=== PATIENT | female | born 1970 | race Caucasian/White ===

== ENCOUNTER 2018-06-10 12:46 | Inpatient (IN) | payer OTHER ==
[~2018-06-10] VITALS: Ht 162.6 cm; Wt 46.5 kg
[2018-06-10] MEDS ORDERED: ONDANSETRON 4 MG INJ IV STA (13:01)
[2018-06-10] MEDS ORDERED: morphine 4 MG/ML VIAL IV STA (13:01)
[2018-06-10] MEDS ORDERED: SOD CHLORIDE 0.9% 1,000 ML IV STA ×2 (13:01→14:03)
[2018-06-10] MEDS ORDERED: CEFEPIME 2GM/50 ML (PMX) 50 ML IVPB STA (14:05)
--- NOTE | 2018-06-10 14:13 | ERD ---
ER Documentation Chief Complaint Chief Complaint bib ra from home for n/v for 1 week, was dx with ovarian ca HPI This is a 47-year-old female that presents to the emergency department complaining of generalized weakness nausea and persistent nonbloody nonbilious emesis for over 7 days. The patient was recently diagnosed with ovarian carcinoma roughly 5 days ago. She indicated that in April she had a routine surgical procedure for an ulcer. At that time there was an incidental finding of possible malignancy. She went to the [facility] where they performed a CT scan of her abdomen 5 days ago and she was diagnosed with right- sided ovarian cancer. The patient is scheduled to begin chemotherapy on 2018 5 days from today. She does state that she has had weight loss. She had no fevers or shaking or chills. She denies any hemoptysis hematemesis or melanotic stools. She denies any frequency urgency or dysuria. She is having lower abdominal pain but she states this is been present for several months. She describes the pain as a cramping-like sensation more prominent the left lower quadrant. No alleviating or exacerbating factors. ROS All systems reviewed and are negative except as per history of present illness. Medications Home Meds No Active Prescriptions or Reported Meds Allergies Allergies: Coded Allergies: No Known Allergy (Unverified , 06/10/18) PMhx/Soc Medical and Surgical Hx: pt denies Surgical Hx Hx Miscellaneous Medical Probl: Yes (ovarian CA) Hx Alcohol Use: No Hx Substance Use: No Hx Tobacco Use: No Smoking Status: Never smoker Physical Exam Vitals Vital Signs Date Temp Pulse Resp B/P (MAP) Pulse Ox O2 O2 Flow FiO2 Time Delivery Rate 06/10/18 98.1 97 20 114/80 100 Room Air 2.0 15:56 (91) 06/10/18 98.1 108 19 115/71 100 Room Air 12:51 (86) 06/10/18 98.1 99 19 110/70 100 12:51 (83) Physical Exam Constitutional:Well-developed. Well-nourished. HEENT:Normocephalic. Atraumatic.Pupils were equal round reactive to light. Very dry mucous membranes.No tonsillar exudates. Neck: No nuchal rigidity. No lymphadenopathy. No posterior cervical spine tenderness or step-offs. Respiratory: Not using accessory muscles of respiration.Lungs were clear to auscultation bilaterally. No rhonchi. No rales. No wheezing. Cardiovascular: Regular rate regular rhythm.No murmurs. No rubs were appreciated.S1, S2 normal. Distal pulses are palpable 2+ bilaterally. GI: Abdomen was soft. Left lower quadrant tenderness with no distension. No pulsatile abdominal masses or bruits. No rebound. No guarding. Bowel sounds were present and normal. Muscle skeletal: Full range of motion of both the upper and lower extremities bilaterally.Normal muscle tone.No assymetrical calf tenderness or swelling. Skin: No petechia, no purpura. No lesions on the palms or the soles of the feet. No maculopapular rash. NEURO: Patient was alert, awake, orientated x3.No facial droop. Gait observed and normal with no ataxia.Speech had regular rate and rhythm. No focal neurological deficits. Result Diagram: 06/10/18 1313 06/10/18 1313 Results 24 hrs Laboratory Tests Test 06/10/18 13:13 06/10/18 14:30 White Blood Count 8.5 10^3/ul Red Blood Count 5.64 10^6/ul Hemoglobin 14.7 g/dl Hematocrit 46.3 % Mean Corpuscular Volume 82.1 fl Mean Corpuscular Hemoglobin 26.1 pg Mean Corpuscular Hemoglobin Concent 31.7 g/dl Red Cell Distribution Width 19.4 % Platelet Count 405 10^3/UL Mean Platelet Volume 10.8 fl Immature Granulocytes % 0.400 % Neutrophils % 76.2 % Lymphocytes % 15.3 % Monocytes % 7.9 % Eosinophils % 0.0 % Basophils % 0.2 % Nucleated Red Blood Cells % 0.0 /100WBC Immature Granulocytes # 0.030 10^3/ul Neutrophils # 6.5 10^3/ul Lymphocytes # 1.3 10^3/ul Monocytes # 0.7 10^3/ul Eosinophils # 0.0 10^3/ul Basophils # 0.0 10^3/ul Nucleated Red Blood Cells # 0.0 10^3/ul Prothrombin Time 12.9 Sec Prothrombin Time Ratio 1.0 INR International Normalized Ratio 0.96 Activated Partial Thromboplast Time 26.4 Sec Sodium Level 135 mmol/L Potassium Level 2.7 mmol/L Chloride Level 58 mmol/L Carbon Dioxide Level 50 mmol/L Anion Gap 27 Blood Urea Nitrogen 73 mg/dl Creatinine 1.81 mg/dl Est Glomerular Filtrat Rate mL/min 30 mL/min Glucose Level 154 mg/dl Lactic Acid Level 2.3 mmol/L Calcium Level 10.2 mg/dl Total Bilirubin 0.3 mg/dl Direct Bilirubin 0.00 mg/dl Indirect Bilirubin 0.3 mg/dl Aspartate Amino Transf (AST/SGOT) 23 IU/L Alanine Aminotransferase (ALT/SGPT) 58 IU/L Alkaline Phosphatase 126 IU/L Troponin I 0.032 ng/ml Total Protein 10.1 g/dl Albumin 4.8 g/dl Globulin 5.30 g/dl Albumin/Globulin Ratio 0.90 Amylase Level 80 U/L Lipase 108 U/L Urine Color YELLOW Urine Clarity CLOUDY Urine pH 6.0 Urine Specific [place] 1.016 Urine Ketones 2+ mg/dL Urine Nitrite NEGATIVE mg/dL Urine Bilirubin NEGATIVE mg/dL Urine Urobilinogen NEGATIVE mg/dL Urine Leukocyte Esterase NEGATIVE Brittany/ul Urine Microscopic RBC 11 /HPF Urine Microscopic WBC 5 /HPF Urine Squamous Epithelial Cells FEW /HPF Urine Bacteria FEW /HPF Urine Mucus FEW /HPF Urine Hemoglobin 1+ mg/dL Urine Glucose NEGATIVE mg/dL Urine Total Protein 2+ mg/dl Current Medications Medications Dose Sig/John Start Time Status Last (Trade) Ordered Route PRN Stop Time Admin Dose Reason Admin Sodium 1,000 ml @ Q1H STAT 06/10/18 DC 06/10/18 Chloride 1,000 mls/hr IV 13:01 06/10/18 13:10 14:00 Morphine 4 mg ONCE STAT 06/10/18 DC Sulfate IV 13:01 06/10/18 (morphine) 13:03 Ondansetron 4 mg ONCE STAT 06/10/18 DC 06/10/18 HCl (Zofran IV 13:01 06/10/18 13:10 Inj) 13:03 Sodium 1,000 ml @ Q1H STAT 06/10/18 DC 06/10/18 Chloride 1,000 mls/hr IV 14:03 06/10/18 14:18 15:02 Cefepime HCl 50 ml @ ONCE STAT 06/10/18 DC 06/10/18 100 mls/hr IVPB 14:05 06/10/18 14:17 14:34 Vancomycin 250 ml @ ONCE ONCE 06/10/18 DC 06/10/18 HCl 125 mls/hr IVPB 14:30 06/10/18 14:57 16:29 10 mg ONCE ONCE 06/10/18 DC 06/10/18 Metoclopramid IV 15:00 06/10/18 15:35 e HCl 15:01 (Reglan) 10 mg STK-MED 06/10/18 DC Metoclopramid ONCE .ROUTE 14:51 06/10/18 e HCl 14:52 (Reglan) Potassium 20 meq ONCE STAT 06/10/18 DC Chloride PO 16:25 06/10/18 (Klor-Con 20) 16:29 Procedures/MDM This patient presented to the emergency department with abdominal pain and was seen and evaluated by myself. My differential diagnosis included but was not limited to abdominal aortic aneurysm, appendicitis, pancreatitis, perforated peptic ulcer, perforated viscus, Boerhaaves syndrome or visceral pain such as diverticulitis, DKA, esophagitis, hepatitis or bowel obstruction. The patient was placed on a forestry biology specialist, continuous pulse oximetry, and IV access was established by nursing staff. 12 Lead EKG tracing ordered and reviewed by myself showed: Normal sinus rhythm of 85 bpm and no arrhythmia. TX interval normal. QRS duration normal. No ST segment elevation No ST segment depression. No changes consistent with acute ischemia. T wave inversion in the inferior leads The patient was given IV fluids. The patient had findings of severe dehydration. The patient had renal failure that appeared to be prerenal with a BUN to creatinine ratio that was greater than 20. I will however obtain u ltrasound of the kidneys. The patient stated she did not want a CT scan is she recently had this performed a week ago that indicated the diagnosis of her ovarian carcinoma. The patient had no peritoneal signs and no abdominal tenderness. She was refusing analgesic medication. She was given as stated above IV fluids and also Zofran as an antiemetic with IV Pepcid. The patient's lactic acid was elevated. I did feel this was more likely result of acute dehydration however given the fact that the patient has multiple comorbidities with recent ovarian carcinoma she was treated prophylactically with antibiotics. Again I felt the patient likely had lactic acidosis secondary to severe dehydration and prerenal azotemia. The patient also had severe hypokalemia. She was given oral potassium. She will be admitted to the hospitalist Dr. Lee and go to the telemetry service due to the hyperkalemia. Critical Care: Time: 50 minutes Treatments/Evaluations: Close monitoring and treatment of unstable vital signs, cardiorespiratory, and neurologic status, while maintaining tight balance of fluid, respiratory, and cardiac interventions. Time does not include performing any of the above billable procedures. Departure Diagnosis: Primary Impression: Acute prerenal azotemia Additional Impressions: Nausea and vomiting Vomiting type: unspecified Vomiting Intractability: non-intractable Qualified Codes: R11.2 - Nausea with vomiting, unspecified Lactic acidosis Ovarian carcinoma Laterality: right Qualified Codes: C56.1 - Malignant neoplasm of right ovary Hypokalemia Condition: Serious CHARLEEN HIGH MD Jun 10, 2018 14:13
[2018-06-10] MEDS ORDERED: VANCOMYCIN 1 GM (PMX) 250 ML IVPB ONE (14:30)
[2018-06-10] MEDS ORDERED: METOCLOPRAMIDE 10 MG INJ ONE (14:51)
[2018-06-10] MEDS ORDERED: METOCLOPRAMIDE 10 MG INJ IV ONE (15:00)
[2018-06-10] MEDS ORDERED: POTASSIUM CHLORIDE (SR) 20 MEQ TAB PO STA (16:25)
--- NOTE | 2018-06-10 17:40 | HP ---
Date/Time of Note Date/Time of Note DATE: 06/10/18 TIME: 17:34 Assessment/Plan VTE Prophylaxis Pharmacological prophylaxis: heparin Lines/Catheters IV [facility] Saline Lock Assessment/Plan Hospital Course Ms Steward is a 47 yo female with ho severe PUD s/p partial gastrectomy last year, recently diagnosed ovarian cancer with chemotherapy scheduled to be started who presents to ED for management of nausea and vomiting which she attri butes to the stress of her cancer diagnosis and the fact that her father has just . She has been found to have metabolic alkalosis and hypokalemia consistent with vomiting syndrome. I suspect as she does this is related to emotional distress. She does not seem to have symptoms of mechanical obstruction as one might attribute to adhesions from her previous surgery or obstruction from her known cancer. We will provide supportive care for now - IV fluids - Potassium repletion - Antiemetics PRN - Further workup if symptoms perisist PUD: - PPI Ovarian cancer: - Further management as outpatient Result Diagram: 06/10/18 1313 06/10/18 1313 Results 24hrs Laboratory Tests Test 06/10/18 13:13 06/10/18 14:30 White Blood Count 8.5 Red Blood Count 5.64 H Hemoglobin 14.7 Hematocrit 46.3 Mean Corpuscular Volume 82.1 Mean Corpuscular Hemoglobin 26.1 L Mean Corpuscular Hemoglobin Concent 31.7 L Red Cell Distribution Width 19.4 H Platelet Count 405 Mean Platelet Volume 10.8 H Immature Granulocytes % 0.400 Neutrophils % 76.2 Lymphocytes % 15.3 Monocytes % 7.9 Eosinophils % 0.0 Basophils % 0.2 Nucleated Red Blood Cells % 0.0 Immature Granulocytes # 0.030 Neutrophils # 6.5 Lymphocytes # 1.3 Monocytes # 0.7 Eosinophils # 0.0 Basophils # 0.0 Nucleated Red Blood Cells # 0.0 Prothrombin Time 12.9 Prothrombin Time Ratio 1.0 INR International Normalized Ratio 0.96 Activated Partial Thromboplast Time 26.4 Sodium Level 135 Potassium Level 2.7 *L Chloride Level 58 L Carbon Dioxide Level 50 *H Anion Gap 27 H Blood Urea Nitrogen 73 H Creatinine 1.81 H Est Glomerular Filtrat Rate mL/min 30 L Glucose Level 154 Lactic Acid Level 2.3 *H Calcium Level 10.2 Total Bilirubin 0.3 Direct Bilirubin 0.00 Indirect Bilirubin 0.3 Aspartate Amino Transf (AST/SGOT) 23 Alanine Aminotransferase (ALT/SGPT) 58 Alkaline Phosphatase 126 H Troponin I 0.032 Total Protein 10.1 H Albumin 4.8 Globulin 5.30 H Albumin/Globulin Ratio 0.90 Amylase Level 80 Lipase 108 Urine Color YELLOW Urine Clarity CLOUDY A Urine pH 6.0 Urine Specific [place] 1.016 Urine Ketones 2+ H Urine Nitrite NEGATIVE Urine Bilirubin NEGATIVE Urine Urobilinogen NEGATIVE Urine Leukocyte Esterase NEGATIVE Urine Microscopic RBC 11 H Urine Microscopic WBC 5 Urine Squamous Epithelial Cells FEW Urine Bacteria FEW A Urine Mucus FEW A Urine Hemoglobin 1+ H Urine Glucose NEGATIVE Urine Total Protein 2+ H HPI/ROS Admit Date/Time Admit Date/Time Hx of Present Illness 47 yo female with ho PUD s/p gastrectomy, recently diagnosed ovarian cancer who presents with nausea/vomiting and inability to tolerate PO Patient has suffered numerous new health conditions since last summer. She was diagnosed with peptic ulcer disease and actually had a perforation requiring emergent surgery. Sounds like she had two surgeries for PUD last year. During these she was diagnosed with ovarian cancer. She is scheduled to start chemotherapy this coming week. To make matters worse, her father unexpecte dly and his was today. She had been feeling ok until this news. Since then she has been very emotional and stressed. She says this causes her nausea and vomiting 2/2 stress. She came to ED today for IV fluids because she couldn't keep anything down. She denies any abdominal pain. She herself does not believe this is related to anything other than stress. PMH/Family/Social Past Medical History PUD Ovarian cancer Medications Current Medications Potassium Chloride 100 ml @ 50 mls/hr Q2H IVPB ; Start 06/10/18 at 17:30; Stop 06/10/18 at 23:29 Coded Allergies: No Known Allergy (Unverified , 06/10/18) Past Surgical History gastrectomy parital for PUD Family History Significant Family History: no pertinent family hx Social History Alcohol Use: none Smoking Status: Never smoker Drug Use: none Exam/Review of Systems Vital Signs Vitals Vital Signs Date Temp Pulse Resp B/P (MAP) Pulse Ox O2 O2 Flow FiO2 Time Delivery Rate 06/10/18 98.1 97 20 114/80 100 Room Air 2.0 15:56 (91) Exam Constitutional: alert, oriented, well developed Psych: no complaints, nl mood/affect Head: normocephalic, atraumatic Eyes: nl conjunctiva, EOMI, nl lids, nl sclera, PERRL ENMT: nl external ears & nose, nl lips & teeth, nl nasal mucosa & septum Neck: supple, non-tender Respiratory: clear to auscultation, normal air movement Cardiovascular: regular rate and rhythm, nl pulses Gastrointestinal: soft, nl liver, spleen, non-tender Musculoskeletal: nl extremities to inspection Extremities: normal pulses Neurological: 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
[2018-06-10] MEDS ORDERED: NACL 0.9% 3 ML SYG IV SCH (18:00)
[2018-06-10] MEDS ORDERED: ACETAMINOPHEN 325 MG TAB PO PRN (19:00)
[2018-06-10] MEDS ORDERED: ONDANSETRON 4 MG INJ IV PRN (19:00)
[2018-06-10] MEDS: POTASSIUM CHLORIDE 100 ML IVPB SCH ×3 (19:35→22:13)
[2018-06-10] MEDS: DEXTROSE 5%-0.45% NACL 1,000 ML IV SCH (19:43)
[2018-06-10 21:00] VITALS: BMI 20.2
[2018-06-10] MEDS: FAMOTIDINE 20 MG TAB PO SCH (21:00)
[2018-06-10 21:18] VITALS: PULSE 86
[2018-06-10] MEDS: ONDANSETRON 4 MG INJ IV PRN (21:44)
[2018-06-10 23:49] VITALS: BP 119/65; PULSE 73; RESP 18
[2018-06-11] VITALS (10 sets, daily range): BP systolic 121–131; BP diastolic 73–79; PULSE 81–106; RESP 15–18
[2018-06-11] MEDS: DEXTROSE 5%-0.45% NACL 1,000 ML IV SCH ×6 (01:41→20:20)
[2018-06-11] MEDS ORDERED: SOD CHLORIDE 0.9% 1,000 ML IV ONE ×2 (07:30→13:00)
[2018-06-11] MEDS: ONDANSETRON 4 MG INJ IV PRN ×3 (08:26→21:54)
[2018-06-11] MEDS: FAMOTIDINE 20 MG TAB PO SCH ×2 (08:26→21:00)
[2018-06-11] MEDS: POTASSIUM CHLORIDE 100 ML IVPB SCH ×6 (09:11→23:50)
[2018-06-11] MEDS ORDERED: IOHEXOL 14.3 MG(I)/ML (ADULT) BTL PO ONE ×2 (09:30→11:00)
[2018-06-11] MEDS ORDERED: POTASSIUM CHLORIDE 100 ML IVPB SCH (10:00)
[2018-06-11] MEDS: LORAZEPAM 2 MG INJ IV PRN ×2 (10:06→16:45)
--- NOTE | 2018-06-11 12:54 | PN ---
Date/Time of Note Date/Time of Note DATE: 06/11/18 TIME: 12:52 Assessment/Plan VTE Prophylaxis Risk score (from Nsg)>0 risk: 3 SCD applied (from Nsg): Yes Pharmacological prophylaxis: heparin Lines/Catheters IV Catheter Type (from Nrsg): Peripheral IV Urinary Cath still in place: No (NO F/C) Assessment/Plan Hospital Course Ms Steward is a 47 yo female with ho severe PUD s/p partial gastrectomy last year, recently diagnosed ovarian cancer with chemotherapy scheduled to be started who presents to ED for management of nausea and vomiting which she attributes to the stress of her cancer diagnosis and the fact that her father has just . She has been found to have metabolic alkalosis and hypokalemia consistent with vomiting syndrome. - Symptoms have persisted and resistent to zofran and ativan. I am now more worried about gastric outlet obstruction. Will obtain CT. I have also asked Dr Suarez to consult Metabolic alkalosis, JAMAL, hypokalemia: - IV fluids - Potassium repletion PUD: - PPI Ovarian cancer: - Further management as outpatient Result Diagram: 06/11/1851806/11/18518 Results 24hrs Laboratory Tests Test 06/10/18 13:13 06/10/18 14:30 06/10/18 17:53 06/11/18 05:19 White Blood Count 8.5 8.7 Red Blood Count 5.64 H 4.56 Hemoglobin 14.7 11.9 L Hematocrit 46.3 38.1 Mean Corpuscular Volume 82.1 83.6 Mean Corpuscular 26.1 L 26.1 L Hemoglobin Mean Corpuscular 31.7 L 31.2 L Hemoglobin Concent Red Cell Distribution 19.4 H 19.8 H Width Platelet Count 405 330 Mean Platelet Volume 10.8 H 11.2 H Immature Granulocytes % 0.400 0.500 H Neutrophils % 76.2 72.5 Lymphocytes % 15.3 16.9 Monocytes % 7.9 8.7 Eosinophils % 0.0 1.2 Basophils % 0.2 0.2 Nucleated Red Blood 0.0 0.0 Cells % Immature Granulocytes # 0.030 0.040 H Neutrophils # 6.5 6.3 Lymphocytes # 1.3 1.5 Monocytes # 0.7 0.8 Eosinophils # 0.0 0.1 Basophils # 0.0 0.0 Nucleated Red Blood 0.0 0.0 Cells # Prothrombin Time 12.9 Prothrombin Time Ratio 1.0 INR International 0.96 Normalized Ratio Activated 26.4 Partial Thromboplast Time Sodium Level 135 138 Potassium Level 2.7 *L 2.5 *L Chloride Level 58 L 78 #L Carbon Dioxide Level 50 *H 51 *H Anion Gap 27 H 9 # Blood Urea Nitrogen 73 H 48 #H Creatinine 1.81 H 1.13 H Est Glomerular Filtrat 30 L 51 L Rate mL/min Glucose Level 154 170 Lactic Acid Level 2.3 *H Calcium Level 10.2 9.1 Total Bilirubin 0.3 0.2 Direct Bilirubin 0.00 0.00 Indirect Bilirubin 0.3 0.2 Aspartate Amino 23 19 Transf (AST/SGOT) Alanine 58 44 Aminotransferase (ALT/SG PT) Alkaline Phosphatase 126 H 90 Troponin I 0.032 Total Protein 10.1 H 8.2 H Albumin 4.8 3.8 # Globulin 5.30 H 4.40 H Albumin/Globulin Ratio 0.90 0.86 Amylase Level 80 Lipase 108 Urine Color YELLOW Urine Clarity CLOUDY A Urine pH 6.0 Urine Specific [place] 1.016 Urine Ketones 2+ H Urine Nitrite NEGATIVE Urine Bilirubin NEGATIVE Urine Urobilinogen NEGATIVE Urine Leukocyte Esterase NEGATIVE Urine Microscopic RBC 11 H Urine Microscopic WBC 5 Urine Squamous FEW Epithelial Cells Urine Bacteria FEW A Urine Mucus FEW A Urine Hemoglobin 1+ H Urine Glucose NEGATIVE Urine Total Protein 2+ H POC Venous Lactate 1.1 Hemoglobin A1c 5.4 Magnesium Level 2.7 H Subjective 24 Hr Interval Summary Free Text/Dictation Patient's symptoms have persisted and perhaps worsened. She says she now is vomiting after meals and seems to feel some obstruction in her stomach Exam/Review of Systems Exam Vitals Vital Signs Date Temp Pulse Resp B/P (MAP) Pulse Ox O2 O2 Flow FiO2 Time Delivery Rate 06/11/18 98.9 95 16 125/74 97 Room Air 11:35 (91) 06/10/18 2.0 20:19 Intake and Output 06/10/18 06/10/18 06/11/18 1515:00 23:00 07:00 IntakeIntake Total 1050 ml 1450 ml OutputOutput Total 350 ml BalanceBalance 1050 ml 1100 ml Constitutional: alert, oriented, well developed Psych: no complaints, nl mood/affect Head: normocephalic, atraumatic Eyes: nl conjunctiva, EOMI, nl lids, nl sclera, PERRL ENMT: nl external ears & nose, nl lips & teeth, nl nasal mucosa & septum Neck: supple, non-tender Respiratory: clear to auscultation, normal air movement Cardiovascular: regular rate and rhythm, nl pulses Gastrointestinal: soft, nl liver, spleen, non-tender Musculoskeletal: nl extremities to inspection, nl gait and stance Extremities: normal pulses Neurological: GREY GOODS TESTER II-XII intact, nl mental status, nl speech, nl strength Skin: nl turgor; No rash or lesions Lymph: nl lymph nodes Results Results 24hrs Laboratory Tests Test 06/10/18 13:13 06/10/18 14:30 06/10/18 17:53 06/11/18 05:19 White Blood Count 8.5 8.7 Red Blood Count 5.64 H 4.56 Hemoglobin 14.7 11.9 L Hematocrit 46.3 38.1 Mean Corpuscular Volume 82.1 83.6 Mean Corpuscular 26.1 L 26.1 L Hemoglobin Mean Corpuscular 31.7 L 31.2 L Hemoglobin Concent Red Cell Distribution 19.4 H 19.8 H Width Platelet Count 405 330 Mean Platelet Volume 10.8 H 11.2 H Immature Granulocytes % 0.400 0.500 H Neutrophils % 76.2 72.5 Lymphocytes % 15.3 16.9 Monocytes % 7.9 8.7 Eosinophils % 0.0 1.2 Basophils % 0.2 0.2 Nucleated Red Blood 0.0 0.0 Cells % Immature Granulocytes # 0.030 0.040 H Neutrophils # 6.5 6.3 Lymphocytes # 1.3 1.5 Monocytes # 0.7 0.8 Eosinophils # 0.0 0.1 Basophils # 0.0 0.0 Nucleated Red Blood 0.0 0.0 Cells # Prothrombin Time 12.9 Prothrombin Time Ratio 1.0 INR International 0.96 Normalized Ratio Activated 26.4 Partial Thromboplast Time Sodium Level 135 138 Potassium Level 2.7 *L 2.5 *L Chloride Level 58 L 78 #L Carbon Dioxide Level 50 *H 51 *H Anion Gap 27 H 9 # Blood Urea Nitrogen 73 H 48 #H Creatinine 1.81 H 1.13 H Est Glomerular Filtrat 30 L 51 L Rate mL/min Glucose Level 154 170 Lactic Acid Level 2.3 *H Calcium Level 10.2 9.1 Total Bilirubin 0.3 0.2 Direct Bilirubin 0.00 0.00 Indirect Bilirubin 0.3 0.2 Aspartate Amino 23 19 Transf (AST/SGOT) Alanine 58 44 Aminotransferase (ALT/SG PT) Alkaline Phosphatase 126 H 90 Troponin I 0.032 Total Protein 10.1 H 8.2 H Albumin 4.8 3.8 # Globulin 5.30 H 4.40 H Albumin/Globulin Ratio 0.90 0.86 Amylase Level 80 Lipase 108 Urine Color YELLOW Urine Clarity CLOUDY A Urine pH 6.0 Urine Specific [place] 1.016 Urine Ketones 2+ H Urine Nitrite NEGATIVE Urine Bilirubin NEGATIVE Urine Urobilinogen NEGATIVE Urine Leukocyte Esterase NEGATIVE Urine Microscopic RBC 11 H Urine Microscopic WBC 5 Urine Squamous FEW Epithelial Cells Urine Bacteria FEW A Urine Mucus FEW A Urine Hemoglobin 1+ H Urine Glucose NEGATIVE Urine Total Protein 2+ H POC Venous Lactate 1.1 Hemoglobin A1c 5.4 Magnesium Level 2.7 H Medications Medication Current Medications Dextrose/Sodium Chloride 1,000 ml @ 150 mls/hr Q6H40M IV Last administered on 06/11/18at 11:05; Admin Dose 150 MLS/HR; Start 06/10/18 at 17:40 IV Flush (NS 3 ml) 3 ml PER PROTOCOL IV ; Start 06/10/18 at 18:00 Ondansetron HCl (Zofran Inj) 4 mg Q6H PRN IV NAUSEA/VOMITING Last administered on 06/11/18at 08:26; Admin Dose 4 MG; Start 06/10/18 at 18:00 Morphine Sulfate (morphine) 2 mg Q4H PRN IV .SEVERE PAIN 7-10; Start 06/10/18 at 18:00 Famotidine (Pepcid) 20 mg Q12 PO Last administered on 06/11/18at 08:26; Admin Dose 20 MG; Start 06/10/18 at 21:00 Ondansetron HCl (Zofran Inj) 4 mg ER BRIDGE PRN IV NAUSEA/VOMITING; Start 06/10/18 at 19:00; Stop 06/11/18 at 18:59 Acetaminophen (Tylenol Tab) 650 mg ER BRIDGE PRN PO .MILD PAIN 1-3 OR TEMP; Start 06/10/18 at 19:00; Stop 06/11/18 at 18:59 Potassium Chloride 100 ml @ 50 mls/hr Q2H IVPB Last administered on 06/11/18at 11:01; Admin Dose 50 MLS/HR; Start 06/11/18 at 07:30; Stop 06/11/18 at 13:29 Lorazepam (Ativan) 1 mg Q6H PRN IV anxiety Last administered on 06/11/18at 10:06; Admin Dose 1 MG; Start 06/11/18 at 09:30 ELMER CAVAZOS MD Jun 11, 2018 12:54
--- NOTE | 2018-06-11 14:50 | CONS ---
DATE OF ADMISSION: 06/10/2018 DATE OF CONSULTATION: TYPE OF CONSULTATION: Gastroenterology. Dear Dr. Lee: Thank you for asking me to see Ms. Steward in GI consultation. HISTORY OF PRESENT ILLNESS: The patient, as you know, is a 47-year-old female who has been admitted to hospital because of persistent vomiting for the past 1 week. As a result, she developed severe alkalosis and hypokalemia. No history of vomiting blood, vomitus is green in color. She had 2 surgeries for perforation of the peptic ulcer disease 2x in the past few years in [facility] nd then some other hospital. No history of passing blood from the rectum. She was recently diagnosed to have ovarian cancer. She is scheduled to have an ovarian cancer treatment on the of this month. REVIEW OF SYSTEM: Totally unremarkable. MEDICATIONS PRIOR TO THE ADMISSION: Please refer to the H and P. PHYSICAL EXAMINATION: GENERAL: The patient is a 47-year-old female who at this time she is alert, she is of avera ge build, not in distress. CARDIOVASCULAR: Normal heart sounds. RESPIRATORY: Normal breath sounds. ABDOMEN: Showed unremarkable findings except surgical scar. MEDICATIONS IN THE HOSPITAL: Includes potassium chloride. LABORATORY WORKUP: Potassium 2.5, sodium is 138, carbon dioxide 51, BUN is 48, creatinine is 1.13. Lactic acid 2.3, bilirubin 0.2, AST 19, ALT 44, alkaline phosphatase is 90. Amylase and lipase are n ormal. Renal ultrasound is normal. CLINICAL IMPRESSION: The patient presenting with history of persistent vomiting for the past 1 week. I would suspect that she probably has a gastric outlet obstruction as a result of previous surgery done for perforated peptic ulcer disease on 2 occasions. No obstruction of the abdomen noted clinica lly. History of ovarian cancer, rule out carcinomatosis. PLAN: At this time, recommend upper endoscopy. Wait for the CAT scan of the abdomen. Once again, Dr. Lee, thank you for this consultation. Dictated By: KARMEN PISANO/LORI Conf#: [id number] DID#: [id number] CC: ELMER LEE MD;*EndCC*
[2018-06-11] MEDS ORDERED: IOHEXOL 300MG/ML 150 ML BTL ONE (17:10)
[2018-06-11] MEDS ORDERED: SOD CHLORIDE 0.9% 100 ML ONE (17:10)
[2018-06-11] MEDS: PIPER-TAZO 3.375 GM IV (PMX) 100 ML IVPB SCH (18:58)
--- NOTE | 2018-06-11 19:01 | CONS ---
Assessment/Plan Assessment/Plan Hospital Course (Demo Recall) 1. CT with emphysematous gastritis, portal venous air, thickening of pylorus and duodenal bulb, thick-walled gallbladder, mesenteric inflammation in the upper abdomen with free fluid. Differential diagnosis includes infectious emphysematous gastritis (gram negatives and anaerobes usually) versus gastric emphysema versus malignancy versus significant gastritis with partial outlet obstruction. Patient is hemodynamically stable with normal white count without left shift and lactic acid has resolved. Options are to proceed with surgery versus medical treatment since she is fully stable. However at any sign of decompensation will consider surgical exploration. -Obtain previous records -IV antibiotics -Judicious IV fluids -Close monitoring at least on telemetry -Supportive measures -Gentle placement of NG tube -GI for endoscopy -Antacids -N.p.o. 2. Acute hypokalemia secondary to reparative nausea vomiting, dehydration, mild lactic acidosis -Judicious fluid management -Repeat lactic acid -As above 3. Anemia possibly dilutional -Monitor 4. Ovarian cancer, recent diagnosis -Oncology and gynecology bounds Thank you very much for consulting me in this patient's care, Consultation Date/Type/Reason Admit Date/Time Date of Consultation: Jun 11, 2018 Type of Consult G. Surgical Reason for Consultation Gastric emphysema Portovenous gas Normal wbc without shift N/V Requesting Provider: ELMER CAVAZOS MD Date/Time of Note DATE: 06/11/18 TIME: 18:59 Hx of Present Illness Galina Steward is a 47 yo female with significant recent surgeries and medical problems who reports having about a week or so nausea and vomiting which got worse in the past few days and presented to the emergency room for further evaluation and treatment. She denies any fevers or chills. Denies any abdominal pain. Reports bowel function. Denies dysuria. Denies headache, visual, neurologic changes. Denies chest pain or shortness of breath. Denies cough, seizure, bloating, trauma, sick contacts. Patient reports last year having perforated peptic ulcer requiring probably Vinay patch at [facility] in October however his subsequent to that had possibly gastric outlet obstruction and another rupture requiring partial gastrectomy possibly at [facility]. This was in April. However patient is not a great historian because she keeps confusing dates and hospital names. She also states that at some point she was at [facility]. This week she was diagnosed with ovarian cancer by [facility] [place]. She denies any significant weight changes. Patient reports the last surgery she had was because of obstruction and she was sent home with an obstruction which does not make sense. Otherwise she is alert oriented to self location and situation. I have contacted both phone numbers for her daughter's Crystal at [phone] and Jazzy at [phone] without any success to reach them. 12 point ros negative unless otherwise addressed Past Medical History Peptic ulcer disease GERD Peptic ulcer perforation Possible gastric outlet obstruction Acute hypokalemia Nausea vomiting Dehydration Anemia Mild lactic acidosis, resolved Ovarian cancer recent diagnosis (past week) Emphysematous gastritis with air within abnormally thickened gastric wall on CT Portal venous air. Marked abnormal thickening of the gastric pylorus and duodenal bulb adjacent to thick-walled enhancing gallbladder with pericholecystic fluid (neoplastic vs ulcer disease with erosion into the gallbladder vs susan-duodenal fistula 2 cm low-attenuation area in the central portion of the left hepatic lobe represents an infiltrative process which may be infectious or neoplastic in etiology. Extensive inflammation is noted throughout the mesentery in the upper abdomen with free fluid. ?early abscess formation in the right mid abdomen measuring 4.9 x 2.0 cm with a thin rim enhancing wall. Enlarged heterogeneous enhancing left ovary measuring 2.6 cm with small fluid adjacent to it. Prominent left pelvic varices suggesting pelvic venous congestion. Abnormal thickening of the sigmoid colon and right colon. Home Meds No Active Prescriptions or Reported Meds Medications Current Medications Dextrose/Sodium Chloride 1,000 ml @ 150 mls/hr Q6H40M IV Last administered on 06/11/18at 18:58; Admin Dose 150 MLS/HR; Start 06/10/18 at 17:40 IV Flush (NS 3 ml) 3 ml PER PROTOCOL IV ; Start 06/10/18 at 18:00 Ondansetron HCl (Zofran Inj) 4 mg Q6H PRN IV NAUSEA/VOMITING Last administered on 06/11/18at 14:43; Admin Dose 4 MG; Start 06/10/18 at 18:00 Morphine Sulfate (morphine) 2 mg Q4H PRN IV .SEVERE PAIN 7-10; Start 06/10/18 at 18:00 Famotidine (Pepcid) 20 mg Q12 PO Last administered on 06/11/18at 08:26; Admin Dose 20 MG; Start 06/10/18 at 21:00 Acetaminophen (Tylenol Tab) 650 mg ER BRIDGE PRN PO .MILD PAIN 1-3 OR TEMP; Start 06/10/18 at 19:00; Stop 06/11/18 at 18:59 Potassium Chloride 100 ml @ 50 mls/hr Q2H IVPB Last administered on 06/11/18at 17:34; Admin Dose 50 MLS/HR; Start 06/11/18 at 16:30; Stop 06/11/18 at 22:29 Piperacillin Sod/ Tazobactam Sod 100 ml @ 200 mls/hr Q8 IVPB Last administered on 06/11/18at 18:58; Admin Dose 200 MLS/HR; Start 06/11/18 at 19:00 Lorazepam (Ativan) 1 mg Q4H PRN IV anxiety ; Start 06/11/18 at 21:30 Allergies: Coded Allergies: No Known Allergy (Unverified , 06/10/18) Past Surgical History Vinay patch October 2017 at [facility] Partial gastrectomy April 2018 at [facility] Family History Significant Family History: no pertinent family hx Social History Alcohol Use: none Smoking Status: Never smoker Drug Use: none Exam/Review of Systems Exam Vitals Vital Signs Date Temp Pulse Resp B/P (MAP) Pulse Ox O2 O2 Flow FiO2 Time Delivery Rate 06/11/18 90 16:01 06/11/18 98.7 17 131/79 96 15:11 (96) 06/11/18 Room Air 11:35 06/10/18 2.0 20:19 Intake and Output 06/10/18 06/10/18 06/11/18 1515:00 23:00 07:00 IntakeIntake Total 1050 ml 1450 ml OutputOutput Total 350 ml BalanceBalance 1050 ml 1100 ml Constitutional: alert, oriented Psych: No anxiety, No confusion (Not confused to self location or situation. However she is confusing the hospitals and the types of procedures she has had the past year somewhat.) Head: normocephalic, atraumatic Eyes: nl conjunctiva, EOMI, PERRL; No icteric ENMT: nl external ears & nose, nl lips & teeth, mucosa pink and moist Neck: supple, non-tender; No jvd Respiratory: normal air movement; No congested cough, No labored breathing, No wheezing Cardiovascular: regular rate and rhythm; No edema Gastrointestinal: soft, tender (Minimal epigastric), other (No rigidity); No distended, No rebound or guarding Musculoskeletal: nl extremities to inspection; No joint tenderness Extremities: normal pulses; No calf tenderness, No edema Neurological: nl mental status, nl speech, nl strength Skin: nl turgor; No rash or lesions, No diaphoresis Lymph: nl lymph nodes Results Result Diagram: 06/11/18 0519 06/11/18 1417 Results 24hrs Laboratory Tests Test 06/11/18 05:19 06/11/18 07:11 06/11/18 14:17 White Blood Count 8.7 Red Blood Count 4.56 Hemoglobin 11.9 L Hematocrit 38.1 Mean Corpuscular Volume 83.6 Mean Corpuscular Hemoglobin 26.1 L Mean Corpuscular Hemoglobin Concent 31.2 L Red Cell Distribution Width 19.8 H Platelet Count 330 Mean Platelet Volume 11.2 H Immature Granulocytes % 0.500 H Neutrophils % 72.5 Lymphocytes % 16.9 Monocytes % 8.7 Eosinophils % 1.2 Basophils % 0.2 Nucleated Red Blood Cells % 0.0 Immature Granulocytes # 0.040 H Neutrophils # 6.3 Lymphocytes # 1.5 Monocytes # 0.8 Eosinophils # 0.1 Basophils # 0.0 Nucleated Red Blood Cells # 0.0 Sodium Level 138 137 Potassium Level 2.5 *L 2.9 *L Chloride Level 78 #L 86 L Carbon Dioxide Level 51 *H 42 *H Anion Gap 9 # 9 Blood Urea Nitrogen 48 #H 35 #H Creatinine 1.13 H 0.96 Est Glomerular Filtrat Rate mL/min 51 L > 60 Glucose Level 170 113 # Hemoglobin A1c 5.4 Calcium Level 9.1 8.6 Magnesium Level 2.7 H Total Bilirubin 0.2 Direct Bilirubin 0.00 Indirect Bilirubin 0.2 Aspartate Amino Transf (AST/SGOT) 19 Alanine Aminotransferase (ALT/SGPT) 44 Alkaline Phosphatase 90 Total Protein 8.2 H Albumin 3.8 # Globulin 4.40 H Albumin/Globulin Ratio 0.86 Serum HCG, Qualitative NEGATIVE Imaging Imaging CT: 1. Emphysematous gastritis with air within abnormally thickened gastric wall. This may be infectious, inflammatory, or neoplastic in etiology. There is also portal venous air. 2. There is marked abnormal thickening of the gastric pylorus and duodenal bulb. Adjacent to this is also a thick-walled enhancing gallbladder with pericholecystic fluid. This may be related to a neoplastic process, ulcer disease with erosion into the gallbladder, or susan-duodenal fistula. There is a rim calcified stone in the anterior mesentery just adjacent to this which may represent an extruded gallstone. 3. 2 cm low-attenuation area in the central portion of the left hepatic lobe represents an infiltrative process which may be infectious or neoplastic in etiology. 4. No biliary duct dilatation. 5. Extensive inflammation is noted throughout the mesentery in the upper abdomen with free fluid. There is a early abscess formation in the right mid abdomen measuring 4.9 x 2.0 cm with a thin rim enhancing wall. Note the infiltration of the mesentery may also be neoplastic in etiology 6. Note the inflammation also surrounds the pancreatic head which may be secondary process. Acute pancreatitis is not excluded. 7. Enlarged heterogeneous enhancing left ovary measuring 2.6 cm with small fluid adjacent to it. This should be further evaluated with pelvic ultrasound 8. Prominent left pelvic varices suggesting pelvic venous congestion. 9. Aabnormal thickening of the sigmoid colon and right colon. This is likely secondary process to the inflammatory fluid in the abdomen and pelvis 10. Small pockets of air noted in the vaginal cuff and cervical os. Question rectovaginal fistula. 11. No large free intraperitoneal air is seen Medications Medication Current Medications Dextrose/Sodium Chloride 1,000 ml @ 150 mls/hr Q6H40M IV Last administered on 06/11/18at 18:58; Admin Dose 150 MLS/HR; Start 06/10/18 at 17:40 IV Flush (NS 3 ml) 3 ml PER PROTOCOL IV ; Start 06/10/18 at 18:00 Ondansetron HCl (Zofran Inj) 4 mg Q6H PRN IV NAUSEA/VOMITING Last administered on 06/11/18at 14:43; Admin Dose 4 MG; Start 06/10/18 at 18:00 Morphine Sulfate (morphine) 2 mg Q4H PRN IV .SEVERE PAIN 7-10; Start 06/10/18 at 18:00 Famotidine (Pepcid) 20 mg Q12 PO Last administered on 06/11/18at 08:26; Admin Dose 20 MG; Start 06/10/18 at 21:00 Acetaminophen (Tylenol Tab) 650 mg ER BRIDGE PRN PO .MILD PAIN 1-3 OR TEMP; Start 06/10/18 at 19:00; Stop 06/11/18 at 18:59 Potassium Chloride 100 ml @ 50 mls/hr Q2H IVPB Last administered on 06/11/18at 17:34; Admin Dose 50 MLS/HR; Start 06/11/18 at 16:30; Stop 06/11/18 at 22:29 Piperacillin Sod/ Tazobactam Sod 100 ml @ 200 mls/hr Q8 IVPB Last administered on 06/11/18at 18:58; Admin Dose 200 MLS/HR; Start 06/11/18 at 19:00 Lorazepam (Ativan) 1 mg Q4H PRN IV anxiety ; Start 06/11/18 at 21:30 DARVIN BOURNE MD Jun 11, 2018 19:01
[2018-06-11] MEDS: metroNIDAZOLE 500 MG/NS (PMX) 100 ML IVPB SCH (22:29)
[2018-06-12] VITALS (14 sets, daily range): BP systolic 108–125; BP diastolic 62–73; PULSE 70–104; RESP 16–18
[2018-06-12] MEDS: LORAZEPAM 2 MG INJ IV PRN ×2 (00:19→15:28)
[2018-06-12] MEDS: DEXTROSE 5%-0.45% NACL 1,000 ML IV SCH ×3 (03:00→14:03)
[2018-06-12] MEDS: PIPER-TAZO 3.375 GM IV (PMX) 100 ML IVPB SCH ×3 (05:06→21:00)
[2018-06-12] MEDS: ONDANSETRON 4 MG INJ IV PRN ×2 (05:08→20:58)
[2018-06-12] MEDS: metroNIDAZOLE 500 MG/NS (PMX) 100 ML IVPB SCH ×3 (05:52→21:56)
[2018-06-12] MEDS: FAMOTIDINE 20 MG TAB PO SCH ×2 (08:44→20:03)
[2018-06-12] MEDS: POTASSIUM CHLORIDE 100 ML IVPB SCH ×2 (09:18→11:37)
--- NOTE | 2018-06-12 15:31 | PN ---
Date/Time of Note Date/Time of Note DATE: 06/12/18 TIME: 15:24 Assessment/Plan Lines/Catheters IV Catheter Type (from [facility]): Saline Lock Ramsey in Place (from [facility]): No Assessment/Plan Chief Complaint/Hosp Course 1. CT with emphysematous gastritis, portal venous air, thickening of pylorus and duodenal bulb, thick-walled gallbladder, mesenteric inflammation in the upper abdomen with free fluid. Differential diagnosis includes infectious emphysematous gastritis (gram negatives and anaerobes usually) versus gastric emphysema versus malignancy versus significant gastritis with partial outlet obstruction. Patient is hemodynamically stable with normal white count without left shift and lactic acid has resolved. Options are to proceed with surgery versus medical treatment since she is fully stable. At this time continue medical treatment, however at any sign of decompensation will consider surgical exploration. EGD 06/2017: Large duodenal bulb ulcer with clear base and hiatal hernia feels better, abdominal pain improved -Continue IV antibiotics -Judicious IV fluids -Close monitoring -Supportive measures -Gentle placement of NG tube > refused overnight however agreeable today -GI for endoscopy -Antacids -N.p.o. 2. Acute hypokalemia secondary to reparative nausea vomiting, dehydration, mild lactic acidosis: Improved -Judicious fluid management -Repeat lactic acid -As above 3. Anemia possibly dilutional -Monitor 4. Ovarian cancer, recent diagnosis -Oncology and gynecology bounds. Thank you. Patient seen and examined in collaboration with Dr. Ag Calle. Subjective 24 Hr Interval Summary Feels better today. Abdominal pain improved. Vomited one time today, nonbloody emesis. No fevers, chills, sob, congested cough, cp, palpitations, cross, dizziness, nausea, vomiting, diarrhea, dysuria. Exam/Review of Systems Vital Signs Vitals Vital Signs Date Temp Pulse Resp B/P (MAP) Pulse Ox O2 O2 Flow FiO2 Time Delivery Rate 06/12/18 87 12:01 06/12/18 98.5 16 116/71 97 Room Air 11:26 (86) 06/10/18 2.0 20:19 Intake and Output 06/11/18 06/11/18 06/12/18 1515:00 23:00 07:00 IntakeIntake Total 2200 ml 350 ml 1320 ml OutputOutput Total 150 ml 150 ml BalanceBalance 2050 ml 200 ml 1320 ml Exam Free Text/Dictation Constitutional: alert, oriented Psych: No anxiety Head: normocephalic, atraumatic Eyes: nl conjunctiva, EOMI, PERRL; No icteric ENMT: nl external ears & nose, nl lips & teeth, mucosa pink and moist Neck: supple, non-tender; No jvd Respiratory: normal air movement; No congested cough, No labored breathing, No wheezing Cardiovascular: regular rate and rhythm; No edema Gastrointestinal: soft, tender (Minimal epigastric), other (No rigidity); No distended, No rebound or guarding Musculoskeletal: nl extremities to inspection; No joint tenderness Extremities: normal pulses; No calf tenderness, No edema Neurological: nl mental status, nl speech, nl strength Skin: nl turgor; No rash or lesions, No diaphoresis Lymph: nl lymph nodes Results Result Diagram: 06/12/1815 06/12/1815 IVELISSE CEJA NP Jun 12, 2018 15:31
--- NOTE | 2018-06-12 15:53 | PN ---
Date/Time of Note Date/Time of Note DATE: 06/12/18 TIME: 15:47 Assessment/Plan VTE Prophylaxis Risk score (from Nsg)>0 risk: 4 SCD applied (from Nsg): Yes Pharmacological prophylaxis: heparin Lines/Catheters IV Catheter Type (from Nrsg): Saline Lock Urinary Cath still in place: No Assessment/Plan Hospital Course Ms Steward is a 47 yo female with ho severe PUD s/p partial gastrectomy last year, recently diagnosed ovarian cancer with chemotherapy scheduled to be started who presents to ED for management of nausea and vomiting. Found to have electrolyte derangements 2/[address] scan showing gastric thickening and emphysematous gastritis concerning for cancer vs necrosis with likely GOO, ovarian mass, possible abscess, etc. - NG tube per Dr guillen - JERRI barahona - Dr Suarez reluctant to perform EGD given concern for gastric necrosis - Patient's oncologist is Dr Mae at [facility]. His number is [phone] [facility] [id number]. I spoke with him but he knew little about her case. Says he can contact him when he is back in the office tomorrow for further collateral Metabolic alkalosis, JAMAL, hypokalemia: - IV fluids - Potassium repletion PUD: - PPI Result Diagram: 06/12/1851406/12/18514 Results 24hrs Laboratory Tests Test 06/11/18 19:48 06/12/18 05:15 Lactic Acid Level 1.0 White Blood Count 6.6 # Red Blood Count 4.26 Hemoglobin 11.1 L Hematocrit 36.4 L Mean Corpuscular Volume 85.4 Mean Corpuscular Hemoglobin 26.1 L Mean Corpuscular Hemoglobin Concent 30.5 L Red Cell Distribution Width 19.8 H Platelet Count 268 Mean Platelet Volume 11.0 H Immature Granulocytes % 0.500 H Neutrophils % 66.8 Lymphocytes % 17.1 Monocytes % 8.5 Eosinophils % 6.6 Basophils % 0.5 Nucleated Red Blood Cells % 0.0 Immature Granulocytes # 0.030 Neutrophils # 4.4 Lymphocytes # 1.1 Monocytes # 0.6 Eosinophils # 0.4 Basophils # 0.0 Nucleated Red Blood Cells # 0.0 Sodium Level 136 Potassium Level 3.2 L Chloride Level 90 L Carbon Dioxide Level 37 H Anion Gap 9 Blood Urea Nitrogen 25 H Creatinine 0.94 Est Glomerular Filtrat Rate mL/min > 60 Glucose Level 143 Calcium Level 8.8 Subjective 24 Hr Interval Summary Free Text/Dictation Patient still unable to eat CT performed showing concern for abscess and likely cancer vs necrosis of the stomach Exam/Review of Systems Exam Vitals Vital Signs Date Temp Pulse Resp B/P (MAP) Pulse Ox O2 O2 Flow FiO2 Time Delivery Rate 06/12/18 98.5 94 16 123/62 98 Room Air 15:35 (82) 06/10/18 2.0 20:19 Intake and Output 06/11/18 06/11/18 06/12/18 1515:00 23:00 07:00 IntakeIntake Total 2200 ml 350 ml 1320 ml OutputOutput Total 150 ml 150 ml BalanceBalance 2050 ml 200 ml 1320 ml Exam Allert orietned No acute distress RRR Breathign comfortaboly Abdomen with firm mass in the epigastrium but no tenderness or guarding Ext warm without edema Results Results 24hrs Laboratory Tests Test 06/11/18 19:48 06/12/18 05:15 Lactic Acid Level 1.0 White Blood Count 6.6 # Red Blood Count 4.26 Hemoglobin 11.1 L Hematocrit 36.4 L Mean Corpuscular Volume 85.4 Mean Corpuscular Hemoglobin 26.1 L Mean Corpuscular Hemoglobin Concent 30.5 L Red Cell Distribution Width 19.8 H Platelet Count 268 Mean Platelet Volume 11.0 H Immature Granulocytes % 0.500 H Neutrophils % 66.8 Lymphocytes % 17.1 Monocytes % 8.5 Eosinophils % 6.6 Basophils % 0.5 Nucleated Red Blood Cells % 0.0 Immature Granulocytes # 0.030 Neutrophils # 4.4 Lymphocytes # 1.1 Monocytes # 0.6 Eosinophils # 0.4 Basophils # 0.0 Nucleated Red Blood Cells # 0.0 Sodium Level 136 Potassium Level 3.2 L Chloride Level 90 L Carbon Dioxide Level 37 H Anion Gap 9 Blood Urea Nitrogen 25 H Creatinine 0.94 Est Glomerular Filtrat Rate mL/min > 60 Glucose Level 143 Calcium Level 8.8 Medications Medication Current Medications Dextrose/Sodium Chloride 1,000 ml @ 150 mls/hr Q6H40M IV Last administered on 06/12/18at 14:03; Admin Dose 150 MLS/HR; Start 06/10/18 at 17:40 IV Flush (NS 3 ml) 3 ml PER PROTOCOL IV ; Start 06/10/18 at 18:00 Ondansetron HCl (Zofran Inj) 4 mg Q6H PRN IV NAUSEA/VOMITING Last administered on 06/12/18 05:08; Admin Dose 4 MG; Start 06/10/18 at 18:00 Morphine Sulfate (morphine) 2 mg Q4H PRN IV .SEVERE PAIN 7-10; Start 06/10/18 at 18:00 Famotidine (Pepcid) 20 mg Q12 PO Last administered on 06/11/18at 08:26; Admin Dose 20 MG; Start 06/10/18 at 21:00 Piperacillin Sod/ Tazobactam Sod 100 ml @ 200 mls/hr Q8 IVPB Last administered on 06/12/18 14:06; Admin Dose 200 MLS/HR; Start 06/11/18 at 19:00 Lorazepam (Ativan) 1 mg Q4H PRN IV anxiety Last administered on 06/12/18 15:28; Admin Dose 1 MG; Start 06/11/18 at 21:30 Metronidazole 100 ml @ 100 mls/hr Q8 IVPB Last administered on 06/12/18 14:06; Admin Dose 100 MLS/HR; Start 06/11/18 at 22:00 ELMER CAVAZOS MD Jun 12, 2018 15:53
[2018-06-13] VITALS (20 sets, daily range): BP systolic 115–160; BP diastolic 59–80; PULSE 79–114; RESP 16–20
[2018-06-13] MEDS: DEXTROSE 5%-0.45% NACL 1,000 ML IV SCH ×4 (00:12→21:58)
[2018-06-13] MEDS: PIPER-TAZO 3.375 GM IV (PMX) 100 ML IVPB SCH ×3 (05:00→21:59)
[2018-06-13] MEDS: ONDANSETRON 4 MG INJ IV PRN ×4 (05:39→22:15)
[2018-06-13] MEDS: metroNIDAZOLE 500 MG/NS (PMX) 100 ML IVPB SCH ×3 (05:41→21:59)
--- NOTE | 2018-06-13 07:22 | PN ---
DATE: 06/12/2018 HISTORY OF PRESENT ILLNESS: The patient is admitted to the hospital with history of vomiting, hypoka lemia and electrolyte imbalance. She is known to have a cancer of the ovary. She had a previous gas tric surgery 1 time for perforation and next time for gastric outlet obstruction resulting in a parti al gastrectomy. The CAT scan of the abdomen was done yesterday which showed evidence of multiple pro blems including emphysematous gastritis with air within the abnormally thickened gastric wall. Etiol ogy of this is not known. in the portal vein, thickening of the gastric pylorus and the duoden al bulb noted. There is also thick walled enhancing gallbladder with pericholecystic fluid. This ma y be related to a neoplastic process, ulcer disease with erosion in the gallbladder or choleduodenal fistula. There is possibility of a gallstone which got extruded from the gallbladder. A 2 cm low attenuation area noted in the left hepatic lobe which could be an infiltrative process, maybe infectious or neopl astic. No biliary dilatation. Extensive inflammation in the mesentery in the upper abdomen with diane e fluid, early abscess formation in the right mid abdomen measuring 4.9 cm is a possibility. Inflamm ation surrounding the pancreatic head is noted. Acute pancreatitis is not excluded. Left ovary is a bnormal with enlarged heterogeneous mass-like area. This could be carcinoma of the ovary. Abnormal thickening of the sigmoid colon and right colon. This is secondary to inflammatory fluid in the abdomen and the pelvis. Please review the chart for more detailed information. Please read the report. Now, the WBC count i s 6600, hemoglobin is 11.1. Potassium is 3.2, carbon dioxide is 37. The liver panel was normal yest erday except elevated alkaline phosphatase of 126 today. All the liver panel is normal. PHYSICAL EXAMINATION: GENERAL: The patient is alert. ABDOMEN: Soft, but with little firmness of the abdomen noted in a generalized fashion. Some tendern ess is appreciated when the examination was performed. LABORATORY WORKUP: WBC count as I already mentioned is 6600 with neutrophils 66, lymphocytes 17. Carbon dioxide content in the blood is 51, potassium 2.5 which is actually yesterday and today, potas sium is 3.2, carbon dioxide content is 37. The patient was seen by Dr. Calle from the general surgery standpoint. Multiple points were ivania t out. HIDA scan was recommended. MRCP was also recommended . Also, he recommended upper endoscopy . PLAN: It depends upon the findings on the NG tube. The patient could not tolerate NG tube insertion yesterday and now, she has no NG tube. I discussed with the patient and the patient agreed to have a NG tube put in with the aid of sedation. However, nursing staff says that she failed multiple time s; however I reiterated that patient needs a repeat placement of NG tube so that we can decompress. After upper endoscopy is a consideration, but it looks like there is a question of some amount of ris k involved because of emphysematous gastric wall. Perforation of the stomach could occur during the upper endoscopy because of the fact there is a need to put air to distend the stomach; however withou t decompression by the NG tube, upper endoscopy will be dangerous and she might aspirate gastric cont ents. We will also await further recommendations from Dr. Calle today. Dictated By: KARMEN PISAON/LORI Conf#: [id number] DID#: [id number] CC: ELMER CAVAZOS MD;*EndCC*
[2018-06-13] MEDS: FAMOTIDINE 20 MG TAB PO SCH ×2 (09:00→21:00)
[2018-06-13] MEDS: morphine 2 MG INJ IV PRN ×3 (09:52→22:23)
--- NOTE | 2018-06-13 11:01 | PN ---
Date/Time of Note Date/Time of Note DATE: 06/13/18 TIME: 10:59 Assessment/Plan Lines/Catheters IV Catheter Type (from [facility]): Saline Lock Ramsey in Place (from [facility]): No Assessment/Plan Chief Complaint/Hosp Course 1. CT with emphysematous gastritis, portal venous air, thickening of pylorus and duodenal bulb, thick-walled gallbladder, mesenteric inflammation in the upper abdomen with free fluid. Differential diagnosis includes infectious emphysematous gastritis (gram negatives and anaerobes usually) versus gastric emphysema versus malignancy versus significant gastritis with partial outlet obstruction. Patient is hemodynamically stable with normal white count without left shift and lactic acid has resolved. Options are to proceed with surgery versus medical treatment since she is fully stable. At this time continue medical treatment, however at any sign of decompensation will consider surgical exploration. EGD 06/2017: Large duodenal bulb ulcer with clear base and hiatal hernia feels better, abdominal pain improved -Continue IV antibiotics -Judicious IV fluids -Close monitoring -Supportive measures -cont NG tube -EGD -Antacids -N.p.o. 2. Acute hypokalemia secondary to reparative nausea vomiting, dehydration, mild lactic acidosis: Improved -Judicious fluid management -Repeat lactic acid -As above 3. Anemia possibly dilutional -Monitor 4. Ovarian cancer, recent diagnosis -Oncology and gynecology bounds. 5. Nausea -Antiemetics as needed Thank you. Patient seen and examined in collaboration with Dr. Ag Calle. Subjective 24 Hr Interval Summary NGT placed with large amounts of gastric drainage noted. Some nausea. No fevers, chills, sob, congested cough, cp, palpitations, cross, dizziness, d/dysuria. Exam/Review of Systems Vital Signs Vitals Vital Signs Date Temp Pulse Resp B/P (MAP) Pulse Ox O2 O2 Flow FiO2 Time Delivery Rate 06/13/18 98.0 89 18 115/66 97 11:30 (82) 06/12/18 Room Air 19:21 06/10/18 2.0 20:19 Intake and Output 06/12/18 06/12/18 06/13/18 1515:00 23:00 07:00 IntakeIntake Total 100 ml 2120 ml 1000 ml OutputOutput Total 600 ml 1500 ml BalanceBalance 100 ml 1520 ml -500 ml Exam Free Text/Dictation Constitutional: alert, oriented Psych: min anxiety Head: normocephalic, atraumatic Eyes: nl conjunctiva, EOMI, PERRL; No icteric ENMT: nl external ears & nose, nl lips & teeth, mucosa pink and moist, ngt Neck: supple, non-tender; No jvd Respiratory: normal air movement; No congested cough, No labored breathing, No wheezing Cardiovascular: regular rate and rhythm; No edema Gastrointestinal: soft, tender (Minimal epigastric), other (No rigidity); No distended, No rebound or guarding Musculoskeletal: nl extremities to inspection; No joint tenderness Extremities: normal pulses; No calf tenderness, No edema Neurological: nl mental status, nl speech, nl strength Skin: nl turgor; No rash or lesions, No diaphoresis Lymph: nl lymph nodes Results Result Diagram: 06/12/18 0515 06/13/18 IVELISSE ROMANO NP Jun 13, 2018 11:01
--- NOTE | 2018-06-13 11:33 | PN ---
Date/Time of Note Date/Time of Note DATE: 06/13/18 TIME: 11:29 Assessment/Plan VTE Prophylaxis Risk score (from Ns)>0 risk: 3 SCD applied (from Ns): Yes Pharmacological prophylaxis: NA/contraindicated Pharm contraindication: surgical contra Lines/Catheters IV Catheter Type (from Nrsg): Saline Lock Urinary Cath still in place: No Assessment/Plan Hospital Course Ms Steward is a 47 yo female with ho severe PUD s/p partial gastrectomy last year, recently diagnosed ovarian cancer with chemotherapy scheduled to be started who presents to ED for management of nausea and vomiting. Found to have electrolyte derangements 2/[address] scan showing gastric thickening and emphysematous gastritis concerning for cancer vs necrosis with likely GOO, ovarian mass, possible abscess, etc. - NG tube per Dr guillen - JERRI barahona - Dr Suarez reluctant to perform EGD given concern for gastric necrosis, may potentially be done after decompression with NG tube - Patient's oncologist is Dr Mae at [facility]. His number is [phone] extension [phone]. I spoke with him but he knew little about her case. Says he can contact him when he is back in the office tomorrow for further collateral Metabolic alkalosis, JAMAL, hypokalemia: - IV fluids - Potassium repletion PUD: - PPI Prophylaxis: SCDs Result Diagram: 06/12/18 0515 06/13/18 1007 Results 24hrs Laboratory Tests Test 06/13/18 10:07 Sodium Level 134 L Potassium Level 3.1 L Chloride Level 92 L Carbon Dioxide Level 37 H Anion Gap 5 Blood Urea Nitrogen 17 Creatinine 0.84 Est Glomerular Filtrat Rate mL/min > 60 Glucose Level 126 Calcium Level 8.9 Subjective 24 Hr Interval Summary Gastrointestinal: pain Exam/Review of Systems Exam Vitals Vital Signs Date Temp Pulse Resp B/P (MAP) Pulse Ox O2 O2 Flow FiO2 Time Delivery Rate 06/13/18 79 08:01 06/13/18 98.4 18 121/68 96 07:22 (85) 06/12/18 Room Air 19:21 06/10/18 2.0 20:19 Intake and Output 06/12/18 06/12/18 06/13/18 1515:00 23:00 07:00 IntakeIntake Total 100 ml 2120 ml 1000 ml OutputOutput Total 600 ml 1500 ml BalanceBalance 100 ml 1520 ml -500 ml Constitutional: alert, oriented Respiratory: clear to auscultation Cardiovascular: regular rate and rhythm Gastrointestinal: soft; No distended Musculoskeletal: nl extremities to inspection Results Results 24hrs Laboratory Tests Test 06/13/18 10:07 Sodium Level 134 L Potassium Level 3.1 L Chloride Level 92 L Carbon Dioxide Level 37 H Anion Gap 5 Blood Urea Nitrogen 17 Creatinine 0.84 Est Glomerular Filtrat Rate mL/min > 60 Glucose Level 126 Calcium Level 8.9 Medications Medication Current Medications Dextrose/Sodium Chloride 1,000 ml @ 150 mls/hr Q6H40M IV Last administered on 06/13/18 09:43; Admin Dose 150 MLS/HR; Start 06/10/18 at 17:40 IV Flush (NS 3 ml) 3 ml PER PROTOCOL IV ; Start 06/10/18 at 18:00 Ondansetron HCl (Zofran Inj) 4 mg Q6H PRN IV NAUSEA/VOMITING Last administered on 06/13/18 09:52; Admin Dose 4 MG; Start 06/10/18 at 18:00 Morphine Sulfate (morphine) 2 mg Q4H PRN IV .SEVERE PAIN 7-10 Last administered on 06/13/18 09:52; Admin Dose 2 MG; Start 06/10/18 at 18:00 Famotidine (Pepcid) 20 mg Q12 PO Last administered on 06/11/18 08:26; Admin Dose 20 MG; Start 06/10/18 at 21:00 Piperacillin Sod/ Tazobactam Sod 100 ml @ 200 mls/hr Q8 IVPB Last administered on 06/13/18 05:00; Admin Dose 200 MLS/HR; Start 06/11/18 at 19:00 Lorazepam (Ativan) 1 mg Q4H PRN IV anxiety Last administered on 06/12/18 15:28; Admin Dose 1 MG; Start 06/11/18 at 21:30 Metronidazole 100 ml @ 100 mls/hr Q8 IVPB Last administered on 06/13/18 05:41; Admin Dose 100 MLS/HR; Start 06/11/18 at 22:00 OUSMANE CERDA Jun 13, 2018 11:33
[2018-06-13] MEDS ORDERED: PROPOFOL 20 ML ONE (12:14)
[2018-06-13] MEDS ORDERED: LIDOCAINE 2% (SDV) 5 ML INJ ONE (12:14)
--- NOTE | 2018-06-13 12:18 | PREAC ---
Date/Time of Note Date/Time of Note DATE: 06/13/18 TIME: 12:16 Anesthesia Eval and Record Evaluation Time Pre-Procedure Interview DATE: 06/13/18 TIME: 12:16 Age 47 Sex female NPO: 8 hrs Preoperative diagnosis vomiting Planned procedure EGD Past Medical History Past Medical History: Includes Surgery & Anesthesia Issues No known issue Meds Anticoagulation: No Beta Hayde within 24 hr: No Reason Beta Hayde not given: Pt. not on B-Hayde No Active Prescriptions or Reported Meds Current Medications Dextrose/Sodium Chloride 1,000 ml @ 150 mls/hr Q6H40M IV Last administered on 06/13/18 09:43; Admin Dose 150 MLS/HR; Start 06/10/18 at 17:40 IV Flush (NS 3 ml) 3 ml PER PROTOCOL IV ; Start 06/10/18 at 18:00 Ondansetron HCl (Zofran Inj) 4 mg Q6H PRN IV NAUSEA/VOMITING Last administered on 06/13/18 09:52; Admin Dose 4 MG; Start 06/10/18 at 18:00 Morphine Sulfate (morphine) 2 mg Q4H PRN IV .SEVERE PAIN 7-10 Last administered on 06/13/18 09:52; Admin Dose 2 MG; Start 06/10/18 at 18:00 Famotidine (Pepcid) 20 mg Q12 PO Last administered on 06/11/18 08:26; Admin Dose 20 MG; Start 06/10/18 at 21:00 Piperacillin Sod/ Tazobactam Sod 100 ml @ 200 mls/hr Q8 IVPB Last administered on 06/13/18 05:00; Admin Dose 200 MLS/HR; Start 06/11/18 at 19:00 Lorazepam (Ativan) 1 mg Q4H PRN IV anxiety Last administered on 06/12/18 15:28; Admin Dose 1 MG; Start 06/11/18 at 21:30 Metronidazole 100 ml @ 100 mls/hr Q8 IVPB Last administered on 06/13/18 05:41; Admin Dose 100 MLS/HR; Start 06/11/18 at 22:00 Meds reviewed: Yes Allergies Coded Allergies: No Known Allergy (Unverified , 06/10/18) Allergies Reviewed: Yes Labs/Studies Labs Reviewed: Reviewed by anesthesiologist Result Diagram: 06/12/1815 06/13/18 1007 Laboratory Tests 06/13/18 10:07 test: Negative Studies: ECG (nsr, st/t wav abnormal, prolonged QT), CXR (Mild infiltrate within the right mid lung, new compared with the prior study. ngt in place) Pre-procedure Exam Last vitals Vital Signs Date Temp Pulse Resp B/P (MAP) Pulse Ox O2 O2 Flow FiO2 Time Delivery Rate 06/13/18 98.0 89 18 115/66 97 11:30 (82) 06/12/18 Room Air 19:21 06/10/18 2.0 20:19 Airway: Adequate mouth opening, Adequate thyromental dist Mallampati: Mallampati II Teeth: Normal Lung: Normal Heart: Normal ASA Physical Status ASA physical status: 2 Emergency: None Planned Anesthetic General/MAC: MAC Pre-operative Attestations Prior to commencing anesthesia and surgery, the patient was re-evaluated, there was verification of: *The patient's identity *The results of appropriate recent lab work and preoperative vital signs *The above evaluation not changing prior to induction *Anesthetic plan, risk benefits, alternative and complications discussed with patient/family; questions answered; patient/family understands, accepts and wishes to proceed. RAFAEL SAHA Jun 13, 2018 12:18
[2018-06-13] MEDS ORDERED: FENTAnyl 50 MCG/ML VIAL IV PRN (12:30)
[2018-06-13] MEDS ORDERED: ONDANSETRON 4 MG INJ IV PRN (12:30)
[2018-06-13] MEDS ORDERED: ALBUTEROL 0.083% (NEB) 2.5 MG/3 ML AMP HHN PRN (12:30)
[2018-06-13] MEDS ORDERED: ACETAMINOPHEN 500 MG TAB PO PRN (12:30)
--- NOTE | 2018-06-13 12:51 | PAC ---
Date/Time of Note Date/Time of Note DATE: 06/13/18 TIME: 12:50 Post-Anesthesia Notes Post-Anesthesia Note Last documented vital signs Vital Signs Date Temp Pulse Resp B/P (MAP) Pulse Ox O2 O2 Flow FiO2 Time Delivery Rate 06/13/18 98.0 99 89 95 18 20 115/66 97 100 face 11:30 124 (82) 129/ mask 8L 4 59 06/12/18 Room Air 19:21 06/10/18 2.0 20:19 Activity: WNL Respiratory function: WNL Cardiovascular function: WNL Mental status: Baseline Pain reasonably controlled: Yes Hydration appropriate: Yes Nausea/Vomiting absent: No (pt nauseated, zofran ordered) RAFAEL SAHA Jun 13, 2018 12:51
--- NOTE | 2018-06-13 13:21 | CONS ---
Assessment/Plan Assessment/Plan Hospital Course (Demo Recall) unfortunate 47 yo with recently diagnosed unresectable ovarian ca. Per pt she was to start chemo this week, admitted with N/V/abdo pain. CT scan of AP shows several concerning findings most pressing of which are:gastric thickening and emphysematous gastritis concerning for cancer vs necrosis with likely gastric outlet obstruction -I have called her out pt oncoologist at number provided by Dr Lee and had to leave a message, await call back, would be useful to have a better understanding of her history -nevertheless, what is of imminent importance is impending gastric outlet obstruction and emphysematous gastritis -Dr Calle has seen the pt, conservative mgmt at this point with NGT, IVF -GI has evaluated and possibly will scope/EGD -from an oncologic perspective it appears she needs neoadjuvant therapy prior to any potential debulking surgery. once she is stable we can consider administration of chemo -IVF and electrolyte replacement Thank you Dr Lee for allowing us to participate in the care of this pleasant pt Consultation Date/Type/Reason Admit Date/Time Date/Time of Note DATE: 06/13/18 TIME: 13:21 Hx of Present Illness 47 yo female with h/o peptic ulcer disease who is s/p gastrectomy, recently diagnosed ovarian cancer, apparently she is not an upfront surgical candidate and plan was for neoadjuvant chemo which was to start today. She presented with nausea/vomiting and inability to tolerate PO. She had CT scan here showin. Emphysematous gastritis with air within abnormally thickened gastric wall. This may be infectious, inflammatory, or neoplastic in etiology. There is also portal venous air. 2. There is marked abnormal thickening of the gastric pylorus and duodenal bul b. Adjacent to this is also a thick-walled enhancing gallbladder with pericholecystic fluid. This may be related to a neoplastic process, ulcer disease with erosion into the gallbladder, or susan-duodenal fistula. There is a rim calcified stone in the anterior mesentery just adjacent to this which may represent an extruded gallstone. 3. 2 cm low-attenuation area in the central portion of the left hepatic lobe represents an infiltrative process which may be infectious or neoplastic in etiology. 4. Extensive inflammation is noted throughout the mesentery in the upper abdomen with free fluid. There is a early abscess formation in the right mid abdomen measuring 4.9 x 2.0 cm with a thin rim enhancing wall. Note the infiltration of the mesentery may also be neoplastic in etiology 5. Note the inflammation also surrounds the pancreatic head which may be secondary process. Acute pancreatitis is not excluded. 6. Enlarged heterogeneous enhancing left ovary measuring 2.6 cm with small fluid adjacent to it. This should be further evaluated with pelvic ultrasound 7. Small pockets of air noted in the vaginal cuff and cervical os. Question rectovaginal fistula. 8. No large free intraperitoneal air is seen Per the notes she has had many recent health issues inclduing PUD performation requiring surgery. It was during w/u and tx for her PUD that shew as found to have ovarian ca. Eyes: no complaints ENT: no complaints Respiratory: no complaints Cardiovascular: no complaints Gastrointestinal: pain, nausea Musculoskeletal: no complaints Skin: no complaints Neurologic: no complaints Endocrine: no complaints Psychological: anxiety, depression Past Medical History Home Meds No Active Prescriptions or Reported Meds Medications Current Medications Dextrose/Sodium Chloride 1,000 ml @ 150 mls/hr Q6H40M IV Last administered on 06/13/18 09:43; Admin Dose 150 MLS/HR; Start 06/10/18 at 17:40 IV Flush (NS 3 ml) 3 ml PER PROTOCOL IV ; Start 06/10/18 at 18:00 Ondansetron HCl (Zofran Inj) 4 mg Q6H PRN IV NAUSEA/VOMITING Last administered on 06/13/18 09:52; Admin Dose 4 MG; Start 06/10/18 at 18:00 Morphine Sulfate (morphine) 2 mg Q4H PRN IV .SEVERE PAIN 7-10 Last administered on 06/13/18 09:52; Admin Dose 2 MG; Start 06/10/18 at 18:00 Famotidine (Pepcid) 20 mg Q12 PO Last administered on 06/11/18 08:26; Admin Dose 20 MG; Start 06/10/18 at 21:00 Piperacillin Sod/ Tazobactam Sod 100 ml @ 200 mls/hr Q8 IVPB Last administered on 06/13/18 05:00; Admin Dose 200 MLS/HR; Start 06/11/18 at 19:00 Lorazepam (Ativan) 1 mg Q4H PRN IV anxiety Last administered on 06/12/18 15:28; Admin Dose 1 MG; Start 06/11/18 at 21:30 Metronidazole 100 ml @ 100 mls/hr Q8 IVPB Last administered on 06/13/18at 05:41; Admin Dose 100 MLS/HR; Start 06/11/18 at 22:00 Fentanyl (Sublimaze) 25 mcg PACU ORDER PRN IV MILD PAIN 1-3; Start 06/13/18 at 12:30; Stop 06/13/18 at 20:00 Ondansetron HCl (Zofran Inj) 4 mg PACU ORDER PRN IV NAUSEA/VOMITING Last administered on 06/13/18at 12:54; Admin Dose 4 MG; Start 06/13/18 at 12:30; Stop 06/13/18 at 20:00 Albuterol (Proventil 0.083% (Neb)) 2.5 mg PACU ORDER PRN HHN .WHEEZING; Start 06/13/18 at 12:30; Stop 06/13/18 at 20:00 Acetaminophen (Tylenol Tab) 1,000 mg ONCE PRN PO pain; Start 06/13/18 at 12:30; Stop 06/13/18 at 20:00 Allergies: Coded Allergies: No Known Allergy (Unverified , 06/10/18) Social History Alcohol Use: none Smoking Status: Never smoker Drug Use: none Exam/Review of Systems Exam Vitals Vital Signs Date Temp Pulse Resp B/P (MAP) Pulse Ox O2 O2 Flow FiO2 Time Delivery Rate 06/13/18 89 18 135/80 96 Room Air 13:00 (98) 06/13/18 98.3 12:44 06/10/18 2.0 20:19 Intake and Output 06/12/18 06/12/18 06/13/18 1414:59 22:59 06:59 IntakeIntake Total 100 ml 2120 ml 1000 ml OutputOutput Total 600 ml 1500 ml BalanceBalance 100 ml 1520 ml -500 ml Constitutional: frail Psych: no complaints, nl mood/affect Head: normocephalic, atraumatic Neck: supple, non-tender Respiratory: normal air movement Gastrointestinal: distended Musculoskeletal: nl extremities to inspection, nl gait and stance Skin: nl turgor; No rash or lesions Results Result Diagram: 06/12/18 0515 06/13/18 1007 Results 24hrs Laboratory Tests Test 06/13/18 10:07 Sodium Level 134 L Potassium Level 3.1 L Chloride Level 92 L Carbon Dioxide Level 37 H Anion Gap 5 Blood Urea Nitrogen 17 Creatinine 0.84 Est Glomerular Filtrat Rate mL/min > 60 Glucose Level 126 Calcium Level 8.9 Medications Medication Current Medications Dextrose/Sodium Chloride 1,000 ml @ 150 mls/hr Q6H40M IV Last administered on 06/13/18 09:43; Admin Dose 150 MLS/HR; Start 06/10/18 at 17:40 IV Flush (NS 3 ml) 3 ml PER PROTOCOL IV ; Start 06/10/18 at 18:00 Ondansetron HCl (Zofran Inj) 4 mg Q6H PRN IV NAUSEA/VOMITING Last administered on 06/13/18 09:52; Admin Dose 4 MG; Start 06/10/18 at 18:00 Morphine Sulfate (morphine) 2 mg Q4H PRN IV .SEVERE PAIN 7-10 Last administered on 06/13/18 09:52; Admin Dose 2 MG; Start 06/10/18 at 18:00 Famotidine (Pepcid) 20 mg Q12 PO Last administered on 06/11/18 08:26; Admin Dose 20 MG; Start 06/10/18 at 21:00 Piperacillin Sod/ Tazobactam Sod 100 ml @ 200 mls/hr Q8 IVPB Last administered on 06/13/18 05:00; Admin Dose 200 MLS/HR; Start 06/11/18 at 19:00 Lorazepam (Ativan) 1 mg Q4H PRN IV anxiety Last administered on 06/12/18 15:28; Admin Dose 1 MG; Start 06/11/18 at 21:30 Metronidazole 100 ml @ 100 mls/hr Q8 IVPB Last administered on 06/13/18 05:41; Admin Dose 100 MLS/HR; Start 06/11/18 at 22:00 Fentanyl (Sublimaze) 25 mcg PACU ORDER PRN IV MILD PAIN 1-3; Start 06/13/18 at 12:30; Stop 06/13/18 at 20:00 Ondansetron HCl (Zofran Inj) 4 mg PACU ORDER PRN IV NAUSEA/VOMITING Last administered on 06/13/18 12:54; Admin Dose 4 MG; Start 06/13/18 at 12:30; Stop 06/13/18 at 20:00 Albuterol (Proventil 0.083% (Neb)) 2.5 mg PACU ORDER PRN HHN .WHEEZING; Start 06/13/18 at 12:30; Stop 06/13/18 at 20:00 Acetaminophen (Tylenol Tab) 1,000 mg ONCE PRN PO pain; Start 06/13/18 at 12:30; Stop 06/13/18 at 20:00 NICK VARELA Jun 13, 2018 13:21
[2018-06-13] MEDS: POTASSIUM CHLORIDE 100 ML IVPB SCH ×2 (21:58→21:59)
[2018-06-14] VITALS (13 sets, daily range): BP systolic 119–140; BP diastolic 63–82; PULSE 71–182; RESP 17–18
[2018-06-14] MEDS ORDERED: METOCLOPRAMIDE 10 MG INJ IV PRN (01:00)
[2018-06-14] MEDS: DEXTROSE 5%-0.45% NACL 1,000 ML IV SCH ×4 (01:46→21:17)
[2018-06-14] MEDS: PIPER-TAZO 3.375 GM IV (PMX) 100 ML IVPB SCH ×3 (05:49→22:00)
[2018-06-14] MEDS: ONDANSETRON 4 MG INJ IV PRN ×3 (05:49→21:17)
[2018-06-14] MEDS: metroNIDAZOLE 500 MG/NS (PMX) 100 ML IVPB SCH ×3 (05:49→21:16)
[2018-06-14] MEDS: FAMOTIDINE 20 MG TAB PO SCH ×2 (08:23→21:17)
--- NOTE | 2018-06-14 11:48 | PN ---
Date/Time of Note Date/Time of Note DATE: 06/14/18 TIME: 11:44 Assessment/Plan Lines/Catheters IV Catheter Type (from [facility]): Saline Lock Ramsey in Place (from [facility]): No Assessment/Plan Chief Complaint/Hosp Course 1. CT with emphysematous gastritis, portal venous air, thickening of pylorus and duodenal bulb, thick-walled gallbladder, mesenteric inflammation in the upper abdomen with free fluid. Differential diagnosis includes infectious emphysematous gastritis (gram negatives and anaerobes usually) versus gastric emphysema versus malignancy versus significant gastritis with partial outlet obstruction. Patient is hemodynamically stable with normal white count without left shift and lactic acid has resolved. Options are to proceed with surgery versus medical treatment since she is fully stable. At this time continue medical treatment, however at any sign of decompensation will consider surgical exploration. EGD 06/2017: Large duodenal bulb ulcer with clear base and hiatal hernia; status post EGD 06/13/18: Pending report abdominal pain improved -Upper GI study -Continue IV antibiotics -Judicious IV fluids -Close monitoring -Supportive measures -cont NG tube -Antacids -N.p.o. 2. Acute hypokalemia secondary to reparative nausea vomiting, dehydration, mild lactic acidosis: Resolved -Monitor 3. Anemia possibly dilutional -Monitor 4. Ovarian cancer, recent diagnosis -Oncology and gynecology consults 5. Nausea and vomiting -Antiemetics as needed -NGT Thank you. Patient seen and examined in collaboration with Dr. Ag Calle. Subjective 24 Hr Interval Summary Status post EGD> pending report. Continues to have nausea and vomiting. Continues to have NG T output. + Flatus. No fevers, chills, sob, congested cough, cp, palpitations, cross, dizziness, diarrhea, dysuria. Exam/Review of Systems Vital Signs Vitals Vital Signs Date Temp Pulse Resp B/P (MAP) Pulse Ox O2 O2 Flow FiO2 Time Delivery Rate 06/14/18 75 08:01 06/14/18 98.2 17 119/63 96 07:25 (81) 06/13/18 Room Air 13:20 06/10/18 2.0 20:19 Intake and Output 06/13/18 06/13/18 06/14/18 1515:00 23:00 07:00 IntakeIntake Total 0 ml 250 ml 120 ml OutputOutput Total 600 ml 500 ml BalanceBalance -600 ml -250 ml 120 ml Exam Free Text/Dictation Constitutional: alert, oriented Psych: min anxiety Head: normocephalic, atraumatic Eyes: nl conjunctiva, EOMI, PERRL; No icteric ENMT: nl external ears & nose, nl lips & teeth, mucosa pink and moist, ngt Neck: supple, non-tender; No jvd Respiratory: normal air movement; No congested cough, No labored breathing, No wheezing Cardiovascular: regular rate and rhythm; No edema Gastrointestinal: soft, tender (Minimal epigastric), other (No rigidity); No distended, No rebound or guarding Musculoskeletal: nl extremities to inspection; No joint tenderness Extremities: normal pulses; No calf tenderness, No edema Neurological: nl mental status, nl speech, nl strength Skin: nl turgor; No rash or lesions, No diaphoresis Lymph: nl lymph nodes Results Result Diagram: 06/12/18 0515 06/14/18 0509 IVELISSE CEJA NP Jun 14, 2018 11:48
[2018-06-14] MEDS ORDERED: BARIUM SULFATE 135 ML (E-Z HD) PO ONE (12:31)
--- NOTE | 2018-06-14 14:33 | PN ---
Date/Time of Note Date/Time of Note DATE: 06/14/18 TIME: 14:23 Assessment/Plan VTE Prophylaxis Risk score (from Nsg)>0 risk: 3 SCD applied (from Nsg): Yes Pharmacological prophylaxis: NA/contraindicated Pharm contraindication: low risk/ambulating Lines/Catheters IV Catheter Type (from Nrsg): Saline Lock Urinary Cath still in place: No Assessment/Plan Hospital Course Ms Steward is a 47 yo female with ho severe PUD s/p partial gastrectomy last year, recently diagnosed ovarian cancer with chemotherapy scheduled to be started who presents to ED for management of nausea and vomiting. Found to have electrolyte derangements 2/[address] scan showing gastric thickening and emphysematous gastritis concerning for cancer vs necrosis with likely GOO, ovarian mass, possible abscess, etc. -Patient status post EGD that shows severely ulcerated gastric mucosa, biopsy not done because of air in gastric wall, unable to enter into the duodenum - NG tube per Dr Calle -Oncology following, recommend neoadjuvant chemotherapy prior to any debulking surgery - IV zosyn - Patient's oncologist is Dr Mae at [facility]. His number is [phone] extension [phone]. Metabolic alkalosis, JAMAL, hypokalemia: - IV fluids - Potassium repletion PUD: - PPI Prophylaxis: SCDs Result Diagram: 06/12/18 0515 06/14/18 0509 Results 24hrs Laboratory Tests Test 06/14/18 05:09 Sodium Level 136 Potassium Level 3.8 Chloride Level 98 Carbon Dioxide Level 35 H Anion Gap 3 L Blood Urea Nitrogen 11 Creatinine 0.87 Est Glomerular Filtrat Rate mL/min > 60 Glucose Level 136 Calcium Level 8.8 Phosphorus Level 3.3 Magnesium Level 2.0 Subjective 24 Hr Interval Summary Gastrointestinal: nausea Exam/Review of Systems Exam Vitals Vital Signs Date Temp Pulse Resp B/P (MAP) Pulse Ox O2 O2 Flow FiO2 Time Delivery Rate 06/14/18 79 12:01 06/14/18 98.0 17 128/82 97 11:45 (97) 06/13/18 Room Air 13:20 06/10/18 2.0 20:19 Intake and Output 06/13/18 06/13/18 06/14/18 1515:00 23:00 07:00 IntakeIntake Total 0 ml 250 ml 320 ml OutputOutput Total 600 ml 500 ml BalanceBalance -600 ml -250 ml 320 ml Constitutional: alert, oriented Respiratory: clear to auscultation Cardiovascular: regular rate and rhythm Gastrointestinal: soft; No distended Musculoskeletal: nl extremities to inspection Results Results 24hrs Laboratory Tests Test 06/14/18 05:09 Sodium Level 136 Potassium Level 3.8 Chloride Level 98 Carbon Dioxide Level 35 H Anion Gap 3 L Blood Urea Nitrogen 11 Creatinine 0.87 Est Glomerular Filtrat Rate mL/min > 60 Glucose Level 136 Calcium Level 8.8 Phosphorus Level 3.3 Magnesium Level 2.0 Medications Medication Current Medications Dextrose/Sodium Chloride 1,000 ml @ 150 mls/hr Q6H40M IV Last administered on 06/14/18 01:46; Admin Dose 150 MLS/HR; Start 06/10/18 at 17:40 IV Flush (NS 3 ml) 3 ml PER PROTOCOL IV ; Start 06/10/18 at 18:00 Ondansetron HCl (Zofran Inj) 4 mg Q6H PRN IV NAUSEA/VOMITING Last administered on 06/14/18 11:39; Admin Dose 4 MG; Start 06/10/18 at 18:00 Morphine Sulfate (morphine) 2 mg Q4H PRN IV .SEVERE PAIN 7-10 Last administered on 06/13/18 22:23; Admin Dose 2 MG; Start 06/10/18 at 18:00 Famotidine (Pepcid) 20 mg Q12 PO Last administered on 06/14/18 08:23; Admin Dose 20 MG; Start 06/10/18 at 21:00 Piperacillin Sod/ Tazobactam Sod 100 ml @ 200 mls/hr Q8 IVPB Last administered on 06/14/18 05:49; Admin Dose 200 MLS/HR; Start 06/11/18 at 19:00 Lorazepam (Ativan) 1 mg Q4H PRN IV anxiety Last administered on 06/12/18 15:28; Admin Dose 1 MG; Start 06/11/18 at 21:30 Metronidazole 100 ml @ 100 mls/hr Q8 IVPB Last administered on 06/14/18 05:49; Admin Dose 100 MLS/HR; Start 06/11/18 at 22:00 OUSMANE CERDA Jun 14, 2018 14:33
--- NOTE | 2018-06-14 15:07 | CONS ---
Assessment/Plan Assessment/Plan Assessment/Plan (Daily) unfortunate 47 yo female patient with # recently diagnosed unresectable ovarian ca. -Per pt she was to start chemo this week, admitted with N/V/abdo pain. -CT scan of AP shows several concerning findings most pressing of which are:gastric thickening and emphysematous gastritis concerning for cancer vs necrosis with likely gastric outlet obstruction -Dr Calle has seen the pt, conservative mgmt at this point with NGT, IVF,and electrolyte replacement -GI recommendations appreciated -plan for EGD/Scope today; not done as patient started vomitting and scope got cancelled -from an oncologic perspective it appears she needs neoadjuvant therapy prior to any potential debulking surgery. -once she is stable, consider administration of chemo as an outpatient-at [facility] Patient seen in collaboration with Dr Hernandez.Dw Staff. Consultation Date/Type/Reason Admit Date/Time Jun 10, 2018 at 18:42 Initial Consult Date 06/11/18 Type of Consult ONCOLOGY Reason for Consultation OVARIAN CANCER Requesting Provider: ELMER CAVAZOS MD Date/Time of Note DATE: 06/14/18 TIME: 15:05 24 HR Interval Summary Free Text/Dictation Resting in bed 06/14/2018-patient scheduled for EGD but GI not able to do it as patient started throwing up Feels better ; NGT connected to Low intermittent suction-green drainage noted family at bed side- all Qs answered no new events reported over night per staff Constitutional: requiring IVF Detailed Summary Eyes: no complaints Exam/Review of Systems Exam Vitals Vital Signs Date Temp Pulse Resp B/P (MAP) Pulse Ox O2 O2 Flow FiO2 Time Delivery Rate 06/14/18 79 12:01 06/14/18 98.0 17 128/82 97 11:45 (97) 06/13/18 Room Air 13:20 06/10/18 2.0 20:19 Intake and Output 06/13/18 06/13/18 06/14/18 1515:00 23:00 07:00 IntakeIntake Total 0 ml 250 ml 320 ml OutputOutput Total 600 ml 500 ml BalanceBalance -600 ml -250 ml 320 ml Constitutional: alert, well developed Psych: nl mood/affect Eyes: EOMI, nl lids, nl sclera ENMT: nl external ears & nose Neck: non-tender Respiratory: diminished breath sounds (at bases) Cardiovascular: nl pulses, other (s1s2) Gastrointestinal: soft, tender (generelized pain) Musculoskeletal: nl extremities to inspection Extremities: normal pulses Neurological: other (alert/responsive) Skin: nl turgor Lymph: nontender Results Result Diagram: 06/12/18 0515 06/14/18 0509 Results 24hrs Laboratory Tests Test 06/14/18 05:09 Sodium Level 136 Potassium Level 3.8 Chloride Level 98 Carbon Dioxide Level 35 H Anion Gap 3 L Blood Urea Nitrogen 11 Creatinine 0.87 Est Glomerular Filtrat Rate mL/min > 60 Glucose Level 136 Calcium Level 8.8 Phosphorus Level 3.3 Magnesium Level 2.0 Medications Medication Current Medications Dextrose/Sodium Chloride 1,000 ml @ 150 mls/hr Q6H40M IV Last administered on 06/14/18 01:46; Admin Dose 150 MLS/HR; Start 06/10/18 at 17:40 IV Flush (NS 3 ml) 3 ml PER PROTOCOL IV ; Start 06/10/18 at 18:00 Ondansetron HCl (Zofran Inj) 4 mg Q6H PRN IV NAUSEA/VOMITING Last administered on 06/14/18 11:39; Admin Dose 4 MG; Start 06/10/18 at 18:00 Morphine Sulfate (morphine) 2 mg Q4H PRN IV .SEVERE PAIN 7-10 Last administered on 06/13/18 22:23; Admin Dose 2 MG; Start 06/10/18 at 18:00 Famotidine (Pepcid) 20 mg Q12 PO Last administered on 06/14/18 08:23; Admin Dose 20 MG; Start 06/10/18 at 21:00 Piperacillin Sod/ Tazobactam Sod 100 ml @ 200 mls/hr Q8 IVPB Last administered on 06/14/18 05:49; Admin Dose 200 MLS/HR; Start 06/11/18 at 19:00 Lorazepam (Ativan) 1 mg Q4H PRN IV anxiety Last administered on 06/12/18 15:28; Admin Dose 1 MG; Start 06/11/18 at 21:30 Metronidazole 100 ml @ 100 mls/hr Q8 IVPB Last administered on 06/14/18 05:49; Admin Dose 100 MLS/HR; Start 06/11/18 at 22:00 RAFA HEAD Jun 14, 2018 3:07 pm
[2018-06-15] VITALS (11 sets, daily range): BP systolic 118–147; BP diastolic 62–81; PULSE 73–89; RESP 17–18
[2018-06-15] MEDS: DEXTROSE 5%-0.45% NACL 1,000 ML IV SCH ×4 (04:11→21:15)
[2018-06-15] MEDS: metroNIDAZOLE 500 MG/NS (PMX) 100 ML IVPB SCH ×3 (05:45→21:07)
[2018-06-15] MEDS: PIPER-TAZO 3.375 GM IV (PMX) 100 ML IVPB SCH ×3 (06:41→23:02)
[2018-06-15] MEDS: FAMOTIDINE 20 MG TAB PO SCH ×2 (08:36→21:07)
[2018-06-15] MEDS: ONDANSETRON 4 MG INJ IV PRN ×2 (08:36→14:46)
--- NOTE | 2018-06-15 11:00 | PN ---
Date/Time of Note Date/Time of Note DATE: 06/15/18 TIME: 10:59 Assessment/Plan VTE Prophylaxis Risk score (from Ns)>0 risk: 3 SCD applied (from Ns): Yes Pharmacological prophylaxis: NA/contraindicated Pharm contraindication: surgical contra Lines/Catheters IV Catheter Type (from Nrsg): Peripheral IV Urinary Cath still in place: No Assessment/Plan Hospital Course Ms Steward is a 47 yo female with ho severe PUD s/p partial gastrectomy last year, recently diagnosed ovarian cancer with chemotherapy scheduled to be started who presents to ED for management of nausea and vomiting. Found to have electrolyte derangements 2/[address] scan showing gastric thickening and emphysematous gastritis concerning for cancer vs necrosis with likely GOO, ovarian mass, possible abscess, etc. -Patient status post EGD that shows severely ulcerated gastric mucosa, biopsy not done because of air in gastric wall, unable to enter into the duodenum - NG tube per Dr Calle -Oncology following, recommend neoadjuvant chemotherapy prior to any debulking surgery - IV zosyn - Patient's oncologist is Dr Mae at [facility]. His number is [phone] extension [phone]. Metabolic alkalosis, JAMAL, hypokalemia: - IV fluids - Potassium repletion PUD: - PPI Prophylaxis: SCDs Result Diagram: 06/12/18 0515 06/14/18 0509 Subjective 24 Hr Interval Summary Constitutional: no complaints Exam/Review of Systems Exam Vitals Vital Signs Date Temp Pulse Resp B/P (MAP) Pulse Ox O2 O2 Flow FiO2 Time Delivery Rate 06/15/18 87 08:18 06/15/18 97.7 18 143/79 97 07:42 (100) 06/13/18 Room Air 13:20 Intake and Output 06/14/18 06/14/18 06/15/18 1515:00 23:00 07:00 IntakeIntake Total 400 ml 340 ml OutputOutput Total 500 ml 200 ml BalanceBalance -100 ml 140 ml Constitutional: alert, oriented Respiratory: clear to auscultation Cardiovascular: regular rate and rhythm Gastrointestinal: soft; No distended Musculoskeletal: nl extremities to inspection Medications Medication Current Medications Dextrose/Sodium Chloride 1,000 ml @ 150 mls/hr Q6H40M IV Last administered on 06/15/18at 10:17; Admin Dose 150 MLS/HR; Start 06/10/18 at 17:40 IV Flush (NS 3 ml) 3 ml PER PROTOCOL IV ; Start 06/10/18 at 18:00 Ondansetron HCl (Zofran Inj) 4 mg Q6H PRN IV NAUSEA/VOMITING Last administered on 06/15/18 08:36; Admin Dose 4 MG; Start 06/10/18 at 18:00 Morphine Sulfate (morphine) 2 mg Q4H PRN IV .SEVERE PAIN 7-10 Last administered on 06/13/18 22:23; Admin Dose 2 MG; Start 06/10/18 at 18:00 Famotidine (Pepcid) 20 mg Q12 PO Last administered on 06/15/18 08:36; Admin Dose 20 MG; Start 06/10/18 at 21:00 Piperacillin Sod/ Tazobactam Sod 100 ml @ 200 mls/hr Q8 IVPB Last administered on 06/15/18 06:41; Admin Dose 200 MLS/HR; Start 06/11/18 at 19:00 Lorazepam (Ativan) 1 mg Q4H PRN IV anxiety Last administered on 06/12/18 15:28; Admin Dose 1 MG; Start 06/11/18 at 21:30 Metronidazole 100 ml @ 100 mls/hr Q8 IVPB Last administered on 06/15/18 05:45; Admin Dose 100 MLS/HR; Start 06/11/18 at 22:00 OUSMANE CERDA Jun 15, 2018 11:00
--- NOTE | 2018-06-15 11:45 | CONS ---
Assessment/Plan Assessment/Plan Hospital Course (Demo Recall) unfortunate 47 yo with recently diagnosed unresectable ovarian ca. Per pt she was to start chemo this week, admitted with N/V/abdo pain. CT scan of AP shows several concerning findings most pressing of which are:gastric thickening and emphysematous gastritis concerning for cancer vs necrosis with likely gastric outlet obstruction -I have called her out pt oncologist at number provided by Dr Lee and left message for him to call back, have not heard back yet, will leave another message today, await call back, would be useful to have a better understanding of her history -nevertheless, what is of imminent importance is impending gastric outlet obstruction and emphysematous gastritis, she is feeling better with NGT -Dr Calle has seen the pt, conservative mgmt at this point with NGT, IVF -GI has evaluated and possibly will scope/EGD -from an oncologic perspective it appears she needs neoadjuvant therapy prior to any potential debulking surgery. once she is stable we can consider administration of chemo. hopefully she stabilizes and she gets a window of opportunity for chemo -IVF and electrolyte replacement Thank you Dr Lee and Dr Landeros for allowing us to participate in the care of this pleasant pt Consultation Date/Type/Reason Admit Date/Time Jun 10, 2018 at 18:42 Initial Consult Date 06/11/18 Requesting Provider: ELMER LEE MD Date/Time of Note DATE: 06/15/18 TIME: 11:45 24 HR Interval Summary Free Text/Dictation less abdo pain and nausea Exam/Review of Systems Exam Vitals Vital Signs Date Temp Pulse Resp B/P (MAP) Pulse Ox O2 O2 Flow FiO2 Time Delivery Rate 06/15/18 97.6 88 18 118/64 97 11:27 (82) 06/13/18 Room Air 13:20 Intake and Output 06/14/18 06/14/18 06/15/18 1515:00 23:00 07:00 IntakeIntake Total 400 ml 340 ml OutputOutput Total 500 ml 200 ml BalanceBalance -100 ml 140 ml Constitutional: frail Psych: no complaints, nl mood/affect Head: normocephalic, atraumatic ENMT: No nl external ears & nose, No nl lips & teeth, No nl nasal mucosa & septum, No mucosa pink and moist, No intubated, No tympanic membranes, No other Extremities: normal pulses Results Result Diagram: 06/12/18 0515 06/14/18 0509 Medications Medication Current Medications Dextrose/Sodium Chloride 1,000 ml @ 150 mls/hr Q6H40M IV Last administered on 06/15/18 10:17; Admin Dose 150 MLS/HR; Start 06/10/18 at 17:40 IV Flush (NS 3 ml) 3 ml PER PROTOCOL IV ; Start 06/10/18 at 18:00 Ondansetron HCl (Zofran Inj) 4 mg Q6H PRN IV NAUSEA/VOMITING Last administered on 06/15/18 08:36; Admin Dose 4 MG; Start 06/10/18 at 18:00 Morphine Sulfate (morphine) 2 mg Q4H PRN IV .SEVERE PAIN 7-10 Last administered on 06/13/18 22:23; Admin Dose 2 MG; Start 06/10/18 at 18:00 Famotidine (Pepcid) 20 mg Q12 PO Last administered on 06/15/18 08:36; Admin Dose 20 MG; Start 06/10/18 at 21:00 Piperacillin Sod/ Tazobactam Sod 100 ml @ 200 mls/hr Q8 IVPB Last administered on 06/15/18 06:41; Admin Dose 200 MLS/HR; Start 06/11/18 at 19:00 Lorazepam (Ativan) 1 mg Q4H PRN IV anxiety Last administered on 06/12/18 15:28; Admin Dose 1 MG; Start 06/11/18 at 21:30 Metronidazole 100 ml @ 100 mls/hr Q8 IVPB Last administered on 06/15/18 05:45; Admin Dose 100 MLS/HR; Start 06/11/18 at 22:00 NICK VARELA Jun 15, 2018 11:45
--- NOTE | 2018-06-15 21:49 | PN ---
Date/Time of Note Date/Time of Note DATE: 06/15/18 TIME: 21:47 Assessment/Plan Lines/Catheters IV Catheter Type (from [facility]): Peripheral IV Ramsey in Place (from [facility]): No Assessment/Plan Chief Complaint/Hosp Course 1. CT with emphysematous gastritis, portal venous air, thickening of pylorus and duodenal bulb, thick-walled gallbladder, mesenteric inflammation in the upper abdomen with free fluid. Differential diagnosis includes infectious emphysematous gastritis (gram negatives and anaerobes usually) versus gastric emphysema versus malignancy versus significant gastritis with partial outlet obstruction. Patient is hemodynamically stable with normal white count without left shift and lactic acid has resolved. Options are to proceed with surgery versus medical treatment since she is fully stable. At this time continue medical treatment, however at any sign of decompensation will consider surgical exploration. EGD 06/2017: Large duodenal bulb ulcer with clear base and hiatal hernia; status post EGD 06/13/18: Pending report abdominal pain improved -Upper GI to evaluate if complete obstruction; study initially refused by patient however now agreeable> will reorder -Continue IV antibiotics -Judicious IV fluids -Close monitoring -Supportive measures -cont NG tube -Antacids -N.p.o. 2. Acute hypokalemia secondary to reparative nausea vomiting, dehydration, mild lactic acidosis: Resolved -Monitor 3. Anemia possibly dilutional -Monitor 4. Ovarian cancer, recent diagnosis -Oncology and gynecology consults 5. Nausea and vomiting -Antiemetics as needed -NGT Thank you. Patient seen and examined in collaboration with Dr. Ag Calle. Subjective 24 Hr Interval Summary Patient refused upper GI series, however she is willing to try again. Continues to have large amounts of output from the NG. No fevers, chills, sob, congested cough, cp, palpitations, cross, dizziness, nausea, vomiting, diarrhea, dysuria. Exam/Review of Systems Vital Signs Vitals Vital Signs Date Temp Pulse Resp B/P (MAP) Pulse Ox O2 O2 Flow FiO2 Time Delivery Rate 06/15/18 98.4 78 18 127/62 96 20:32 (83) 06/13/18 Room Air 13:20 Intake and Output 06/14/18 06/14/18 06/15/18 1515:00 23:00 07:00 IntakeIntake Total 400 ml 340 ml OutputOutput Total 500 ml 200 ml BalanceBalance -100 ml 140 ml Exam Free Text/Dictation Constitutional: alert, oriented Psych: min anxiety Head: normocephalic, atraumatic Eyes: nl conjunctiva, EOMI, PERRL; No icteric ENMT: nl external ears & nose, nl lips & teeth, mucosa pink and moist, ngt Neck: supple, non-tender; No jvd Respiratory: normal air movement; No congested cough, No labored breathing, No wheezing Cardiovascular: regular rate and rhythm; No edema Gastrointestinal: soft, tender (Minimal epigastric), other (No rigidity); No distended, No rebound or guarding Musculoskeletal: nl extremities to inspection; No joint tenderness Extremities: normal pulses; No calf tenderness, No edema Neurological: nl mental status, nl speech, nl strength Skin: nl turgor; No rash or lesions, No diaphoresis Lymph: nl lymph nodes Results Result Diagram: 06/12/18 0515 06/14/18 0509 IVELISSE CEJA NP Jun 15, 2018 21:49
[2018-06-15] MEDS ORDERED: morphine LIQ (10 MG/5 ML) CUP PO PRN (23:00)
[2018-06-16] VITALS (11 sets, daily range): BP systolic 124–145; BP diastolic 60–74; PULSE 72–97; RESP 18–20
[2018-06-16] MEDS ORDERED: POTASSIUM CHLORIDE 20 MEQ POWDER FOR ORAL SOLN PO ONE (06:00)
[2018-06-16] MEDS: metroNIDAZOLE 500 MG/NS (PMX) 100 ML IVPB SCH ×2 (06:05→15:00)
[2018-06-16] MEDS: ONDANSETRON 4 MG INJ IV PRN ×2 (06:10→09:03)
[2018-06-16] MEDS: DEXTROSE 5%-0.45% NACL 1,000 ML IV SCH ×3 (06:19→21:00)
[2018-06-16] MEDS: PIPER-TAZO 3.375 GM IV (PMX) 100 ML IVPB SCH ×3 (07:02→21:00)
--- NOTE | 2018-06-16 07:55 | CONS ---
Assessment/Plan Assessment/Plan Assessment/Plan (Daily) # recently diagnosed unresectable ovarian ca. -Per pt she was to start chemo this week, admitted with N/V/abdo pain. -CT scan of AP shows several concerning findings most pressing of which are:gastric thickening and emphysematous gastritis concerning for cancer vs necrosis with likely gastric outlet obstruction -Dr Calle has seen the pt, conservative mgmt at this point with NGT, IVF,and electrolyte replacement -GI recommendations appreciated -plan for EGD/Scope today -from an oncologic perspective it appears she needs neoadjuvant therapy prior to any potential debulking surgery. -once she is stable, consider administration of chemo as an outpatient-at [facility] # Acute severe Hypokalemia - management per PMD # Anemia - Hgb 11.1 - GI follows Patient seen in collaboration with Dr Hernandez Consultation Date/Type/Reason Admit Date/Time Jun 10, 2018 at 6:42 pm Initial Consult Date 06/11/18 Type of Consult ONCOLOGY Reason for Consultation OVARIAN CANCER Requesting Provider: ELMER CAVAZOS MD Date/Time of Note DATE: 06/16/18 TIME: 07:54 24 HR Interval Summary Free Text/Dictation c/o nausea/vomitting - none at present Plan for EGD today NGT noted while connected to low intermittent suction- copious green drainage noted - no new issues reported overnight Constitutional: requiring IVF Detailed Summary Eyes: no complaints ENT: no complaints Respiratory: no complaints Cardiovascular: no complaints Gastrointestinal: nausea Genitourinary: no complaints Musculoskeletal: other (general weakness) Skin: no complaints Neurologic: no complaints Endocrine: no complaints Lymphatic: no complaints Psychological: nl mood/affect Immunologic: no complaints Exam/Review of Systems Exam Vitals Vital Signs Date Temp Pulse Resp B/P (MAP) Pulse Ox O2 O2 Flow FiO2 Time Delivery Rate 06/16/18 98.0 80 20 125/64 96 Room Air 07:49 (84) Intake and Output 06/15/18 06/15/18 06/16/18 1515:00 23:00 07:00 IntakeIntake Total 100 ml 1200 ml OutputOutput Total 700 ml BalanceBalance 100 ml 500 ml Constitutional: alert, well developed Psych: no complaints Head: normocephalic Eyes: EOMI, nl lids, nl sclera, PERRL ENMT: nl external ears & nose Neck: non-tender Respiratory: diminished breath sounds (at bases bilaterally) Cardiovascular: nl pulses, other (s1s2) Gastrointestinal: soft, tender Musculoskeletal: nl extremities to inspection Extremities: normal pulses Neurological: nl speech, other (alert/responsive) Lymph: nontender Results Result Diagram: 06/12/18 0515 06/16/18 0459 Results 24hrs Laboratory Tests Test 06/16/18 04:59 Sodium Level 137 Potassium Level 2.7 *L Chloride Level 92 L Carbon Dioxide Level 37 H Anion Gap 8 Blood Urea Nitrogen 9 Creatinine 0.68 Est Glomerular Filtrat Rate mL/min > 60 Glucose Level 148 Calcium Level 8.5 Phosphorus Level 2.9 Magnesium Level 1.9 Medications Medication Current Medications Dextrose/Sodium Chloride 1,000 ml @ 150 mls/hr Q6H40M IV Last administered on 06/16/18at 06:19; Admin Dose 150 MLS/HR; Start 06/10/18 at 17:40 IV Flush (NS 3 ml) 3 ml PER PROTOCOL IV ; Start 06/10/18 at 18:00 Ondansetron HCl (Zofran Inj) 4 mg Q6H PRN IV NAUSEA/VOMITING Last administered on 06/16/18at 06:10; Admin Dose 4 MG; Start 06/10/18 at 18:00 Famotidine (Pepcid) 20 mg Q12 PO Last administered on 06/15/18at 21:07; Admin Dose 20 MG; Start 06/10/18 at 21:00 Piperacillin Sod/ Tazobactam Sod 100 ml @ 200 mls/hr Q8 IVPB Last administered on 06/16/18at 07:02; Admin Dose 200 MLS/HR; Start 06/11/18 at 19:00 Lorazepam (Ativan) 1 mg Q4H PRN IV anxiety Last administered on 06/12/18at 15:28; Admin Dose 1 MG; Start 06/11/18 at 21:30 Metronidazole 100 ml @ 100 mls/hr Q8 IVPB Last administered on 06/16/18at 06:05; Admin Dose 100 MLS/HR; Start 06/11/18 at 22:00 Morphine Sulfate (morphine) 6 mg Q4H PRN PO SEVERE PAIN LEVEL 7-10; Start 06/15/18 at 23:00 Potassium Chloride 100 ml @ 50 mls/hr Q2H IVPB ; Start 06/16/18 at 06:00; Stop 06/16/18 at 09:59 RAFA HEAD Jun 16, 2018 07:55
[2018-06-16] MEDS: FAMOTIDINE 20 MG TAB PO SCH ×2 (09:03→20:53)
[2018-06-16] MEDS ORDERED: DIATR MEGLU/DIATRIZOATE SODIUM 120 ML BTL ONE (09:38)
[2018-06-16] MEDS ORDERED: BARIUM SULFATE 135 ML (E-Z HD) PO ONE (09:40)
--- NOTE | 2018-06-16 11:09 | PN ---
Date/Time of Note Date/Time of Note DATE: 06/16/18 TIME: 11:03 Assessment/Plan Lines/Catheters IV Catheter Type (from [facility]): Peripheral IV Ramsey in Place (from [facility]): No Assessment/Plan Chief Complaint/Hosp Course 1. CT with emphysematous gastritis, portal venous air, thickening of pylorus and duodenal bulb, thick-walled gallbladder, mesenteric inflammation in the upper abdomen with free fluid. Differential diagnosis includes infectious emphysematous gastritis (gram negatives and anaerobes usually) versus gastric emphysema versus malignancy versus significant gastritis with partial outlet obstruction. Patient is hemodynamically stable with normal white count without left shift and lactic acid has resolved. Continue medical treatment, however at any sign of decompensation will consider surgical exploration. EGD 06/2017: Large duodenal bulb ulcer with clear base and hiatal hernia; status post EGD 06/13/18: nodular hypertrophic ulcerated gastric mucosa, unable to get into duodenum abdominal pain improved -Upper GI to evaluate if complete obstruction; study initially refused by patient, pending for today -Continue IV antibiotics -Judicious IV fluids -Close monitoring -Supportive measures -cont NG tube -Antacids -N.p.o. 2. Acute hypokalemia -Monitor 3. Anemia possibly dilutional -Monitor 4. Ovarian cancer, recent diagnosis -Oncology and gynecology consults 5. Nausea and vomiting -Antiemetics as needed -NGT Thank you. Patient seen and examined in collaboration with Dr. Ag Calle. Subjective 24 Hr Interval Summary Pending upper gi series today. No fevers, chills, sob, congested cough, cp, palp itations, cross, dizziness, n/v/d/dysuria. Exam/Review of Systems Vital Signs Vitals Vital Signs Date Temp Pulse Resp B/P (MAP) Pulse Ox O2 O2 Flow FiO2 Time Delivery Rate 06/16/18 86 08:22 06/16/18 98.0 20 125/64 96 Room Air 07:49 (84) Intake and Output 06/15/18 06/15/18 06/16/18 1515:00 23:00 07:00 IntakeIntake Total 100 ml 1200 ml OutputOutput Total 700 ml BalanceBalance 100 ml 500 ml Exam Free Text/Dictation Constitutional: alert, oriented Psych: min anxiety Head: normocephalic, atraumatic Eyes: nl conjunctiva, EOMI, PERRL; No icteric ENMT: nl external ears & nose, nl lips & teeth, mucosa pink and moist, ngt Neck: supple, non-tender; No jvd Respiratory: normal air movement; No congested cough, No labored breathing, No wheezing Cardiovascular: regular rate and rhythm; No edema Gastrointestinal: soft, tender (Minimal epigastric), other (No rigidity); No distended, No rebound or guarding Musculoskeletal: nl extremities to inspection; No joint tenderness Extremities: normal pulses; No calf tenderness, No edema Neurological: nl mental status, nl speech, nl strength Skin: nl turgor; No rash or lesions, No diaphoresis Lymph: nl lymph nodes Results Result Diagram: 06/12/18 0515 06/16/18 0459 IVELISSE CEJA NP Jun 16, 2018 11:09
[2018-06-16] MEDS ORDERED: LIDOCAINE 1% (MPF) 5 ML VIAL SC ONE (12:00)
[2018-06-16] MEDS ORDERED: POTASSIUM CHLORIDE 20 MEQ POWDER FOR ORAL SOLN NGT ONE (12:00)
--- NOTE | 2018-06-16 14:55 | PN ---
Date/Time of Note Date/Time of Note DATE: 06/16/18 TIME: 14:49 Assessment/Plan VTE Prophylaxis Risk score (from Nsg)>0 risk: 3 SCD applied (from Nsg): Yes Pharmacological prophylaxis: NA/contraindicated Pharm contraindication: surgical contra Lines/Catheters IV Catheter Type (from Nrsg): Peripheral IV Urinary Cath still in place: No Assessment/Plan Hospital Course Ms Steward is a 47 yo female with ho severe PUD s/p partial gastrectomy last year, recently diagnosed ovarian cancer with chemotherapy scheduled to be started who presents to ED for management of nausea and vomiting. Found to have electrolyte derangements 2/[address] scan showing gastric thickening and emphysematous gastritis concerning for cancer vs necrosis with likely GOO, ovarian mass, possible abscess, etc. -Patient status post EGD that shows severely ulcerated gastric mucosa, biopsy not done because of air in gastric wall, unable to enter into the duodenum - NG tube per Dr Calle -Upper GI series does show delayed gastric emptying with extrinsic compression -Discuss need for gastric stent with surgery -Oncology following, recommend neoadjuvant chemotherapy prior to any debulking surgery, of note patient would like to follow-up with Dr. Vick moving forward - IV zosyn - Patient's prior oncologist is Dr Mae at [facility]. His number is [phone] extension [phone]. Metabolic alkalosis, JAMAL, hypokalemia: - IV fluids - Potassium repletion PUD: - PPI Prophylaxis: SCDs Result Diagram: 06/12/18 0515 06/16/18 0459 Results 24hrs Laboratory Tests Test 06/16/18 04:59 Sodium Level 137 Potassium Level 2.7 *L Chloride Level 92 L Carbon Dioxide Level 37 H Anion Gap 8 Blood Urea Nitrogen 9 Creatinine 0.68 Est Glomerular Filtrat Rate mL/min > 60 Glucose Level 148 Calcium Level 8.5 Phosphorus Level 2.9 Magnesium Level 1.9 Subjective 24 Hr Interval Summary Constitutional: no complaints Exam/Review of Systems Exam Vitals Vital Signs Date Temp Pulse Resp B/P (MAP) Pulse Ox O2 O2 Flow FiO2 Time Delivery Rate 06/16/18 97 12:29 06/16/18 98.0 20 132/64 98 Room Air 11:22 (86) Intake and Output 06/15/18 06/15/18 06/16/18 1515:00 23:00 07:00 IntakeIntake Total 100 ml 1200 ml OutputOutput Total 700 ml BalanceBalance 100 ml 500 ml Constitutional: alert, oriented Respiratory: clear to auscultation Cardiovascular: regular rate and rhythm Gastrointestinal: soft; No distended Musculoskeletal: nl extremities to inspection Results Results 24hrs Laboratory Tests Test 06/16/18 04:59 Sodium Level 137 Potassium Level 2.7 *L Chloride Level 92 L Carbon Dioxide Level 37 H Anion Gap 8 Blood Urea Nitrogen 9 Creatinine 0.68 Est Glomerular Filtrat Rate mL/min > 60 Glucose Level 148 Calcium Level 8.5 Phosphorus Level 2.9 Magnesium Level 1.9 Medications Medication Current Medications Dextrose/Sodium Chloride 1,000 ml @ 150 mls/hr Q6H40M IV Last administered on 06/16/18 06:19; Admin Dose 150 MLS/HR; Start 06/10/18 at 17:40 IV Flush (NS 3 ml) 3 ml PER PROTOCOL IV ; Start 06/10/18 at 18:00 Ondansetron HCl (Zofran Inj) 4 mg Q6H PRN IV NAUSEA/VOMITING Last administered on 06/16/18at 09:03; Admin Dose 4 MG; Start 06/10/18 at 18:00 Famotidine (Pepcid) 20 mg Q12 PO Last administered on 06/16/18 09:03; Admin Dose 20 MG; Start 06/10/18 at 21:00 Piperacillin Sod/ Tazobactam Sod 100 ml @ 200 mls/hr Q8 IVPB Last administered on 06/16/18 13:25; Admin Dose 200 MLS/HR; Start 06/11/18 at 19:00 Lorazepam (Ativan) 1 mg Q4H PRN IV anxiety Last administered on 06/12/18at 15:28; Admin Dose 1 MG; Start 06/11/18 at 21:30 Metronidazole 100 ml @ 100 mls/hr Q8 IVPB Last administered on 06/16/18 06:05; Admin Dose 100 MLS/HR; Start 06/11/18 at 22:00 Morphine Sulfate (morphine) 6 mg Q4H PRN PO SEVERE PAIN LEVEL 7-10; Start 06/15/18 at 23:00 OUSMANE CERDA Jun 16, 2018 14:55
[2018-06-16] MEDS: POTASSIUM CHLORIDE 100 ML IVPB SCH ×2 (16:52→20:53)
[2018-06-17] VITALS (11 sets, daily range): BP systolic 101–128; BP diastolic 57–78; PULSE 72–85; RESP 18–20
[2018-06-17] MEDS: DEXTROSE 5%-0.45% NACL 1,000 ML IV SCH ×4 (03:56→21:06)
[2018-06-17] MEDS: PIPER-TAZO 3.375 GM IV (PMX) 100 ML IVPB SCH ×3 (05:45→21:05)
--- NOTE | 2018-06-17 06:34 | PN ---
DATE: 06/16/2018 SUBJECTIVE: The patient is admitted with history of vomiting. Upper endoscopy showed evidence of th ickening and hypertrophic folds of the antrum of the stomach with mass-like structures and nodularity of this area with ulcers as well. Duodenum could not be entered because the pylorus was occluded. Upper GI was done which showed evidence of diffuse thickening of the wall of the gastric antrum. Ext rinsic compression of distal gastric antrum, pylorus and first part of the duodenum with a delayed ga stric emptying noted. It certainly appears to be a malignant process. She has history of ovarian ca rcinoma. Plan at this time, we will obtain CA-125 level and also CEA level. CLINICAL IMPRESSION: Gastric outlet obstruction secondary to infiltrating mass in the stomach. The biopsy was not obtained because of the possibility of perforation. However the cytology was done and on cytology she has no malignant cells noted. Again consistent with a malignant lesion of the stomach whether secondary to outside ovarian cancer or primary gastric cancer is not very clear. Pl an at this time. PLAN: At this time, I discussed with Dr. Calle, who recommended that the patient need to have a st ent through the duodenum to bypass the duodenal obstruction so that we can feed the patient and event ually patient will undergo surgery. Dictated By: KARMEN ARAGON MD NC/NTS Conf#: [id number] DID#: [id number] CC: ELMER CAVAZOS MD; OUSMANE CERDA MD; DARVIN CALLE MD;*EndCC*
--- NOTE | 2018-06-17 08:06 | CONS ---
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 Consultation Date/Type/Reason Admit Date/Time Jun 10, 2018 at 6:42 pm Date/Time of Note DATE: 06/17/18 TIME: 08:04 Hx of Present Illness See this lady in in management consultation. Patient is a 47-year-old female who unfortunately was recently diagnosed with ovarian cancer. She status post chemotherapy. She is having tractable nausea and vomiting status post partial gastrectomy admitted to [facility] with above diagnosis plus hydration. Patient currently is complaining only of very low-grade abdominal discomfort which she states is currently treated well with Roxanol X milligrams every 4 hours as needed. His pain is primarily radiating to her left flank and the left hip her major complaint is protracted nausea and vomiting although in review of medical records CT scan shows gastric thickening and emphysematous gastritis concerning for cancer versus necrosis probable gastric outlet obstruction possibly related to abscess or ovarian mass. She did not seen by GI consultation endoscopy was done apices were obtained, infiltrating mass in the stomach was identified, recommendations are to have stent placed through the duodenum bypass to a duodenal obstruction if possible. She is pain is rated 2/10 once again radiates into the left flank, primarily somatic without constipation or diarrhea. Subjective hx not possible: pt critical Constitutional: chills, poor po, other (The protracted nausea and vomiting) Eyes: no complaints; No pain, No discharge, No redness, No visual change, No other ENT: no complaints; No bleeding, No pain, No congestion, No discharge, No dysphagia, No sore throat, No other Respiratory: no complaints; No pain, No cough, No pleuritic pain, No shortness of breath, No sputum, No wheezing, No other Cardiovascular: No no complaints, No chest pain, No edema, No lightheadedness, No orthopenea, No palpitations, No paroxysmal nocturnal dyspnea, No other Gastrointestinal: other (Refer to history of present illness) Genitourinary: No no complaints, No bleeding, No dysuria, No discharge, No flank pain, No hematuria, No other Musculoskeletal: No no complaints, No back pain, No bone/joint pain, No neck pain, No restricted range of motion, No swelling, No other Neurologic: no complaints; No confusion, No dizziness, No focal-weakness, No headache, No syncope, No seizure, No other Past Medical History Medical History: cancer, GI bleed, peptic ulcer disease Home Meds No Active Prescriptions or Reported Meds Medications Current Medications Dextrose/Sodium Chloride 1,000 ml @ 150 mls/hr Q6H40M IV Last administered on 06/17/18at 03:56; Admin Dose 150 MLS/HR; Start 06/10/18 at 17:40 IV Flush (NS 3 ml) 3 ml PER PROTOCOL IV ; Start 06/10/18 at 18:00 Ondansetron HCl (Zofran Inj) 4 mg Q6H PRN IV NAUSEA/VOMITING Last administered on 06/16/18at 09:03; Admin Dose 4 MG; Start 06/10/18 at 18:00 Famotidine (Pepcid) 20 mg Q12 PO Last administered on 06/16/18at 09:03; Admin Dose 20 MG; Start 06/10/18 at 21:00 Piperacillin Sod/ Tazobactam Sod 100 ml @ 200 mls/hr Q8 IVPB Last administered on 06/17/18at 05:45; Admin Dose 200 MLS/HR; Start 06/11/18 at 19:00 Lorazepam (Ativan) 1 mg Q4H PRN IV anxiety Last administered on 06/12/18at 15:28; Admin Dose 1 MG; Start 06/11/18 at 21:30 Morphine Sulfate (morphine) 6 mg Q4H PRN PO SEVERE PAIN LEVEL 7-10; Start 06/15/18 at 23:00 IV Flush (NS 10 ml) 10 ml PRN PRN IV IV PROTOCOL; Start 06/16/18 at 17:00 Allergies: Coded Allergies: No Known Allergy (Unverified , 06/10/18) Past Surgical History Past Surgical Hx: endoscopy Social History Alcohol Use: none Smoking Status: Never smoker Drug Use: none Exam/Review of Systems Exam Vitals Vital Signs Date Temp Pulse Resp B/P (MAP) Pulse Ox O2 O2 Flow FiO2 Time Delivery Rate 06/17/18 98.0 84 20 117/76 97 Room Air 07:18 (90) Intake and Output 06/16/18 06/16/18 06/17/18 1515:00 23:00 07:00 IntakeIntake Total 500 ml 1800 ml 1300 ml OutputOutput Total 1000 ml 1800 ml BalanceBalance 500 ml 800 ml -500 ml Constitutional: alert, oriented, well developed Psych: no complaints, nl mood/affect, anxiety ENMT: nl external ears & nose, nl lips & teeth, nl nasal mucosa & septum; No mucosa pink and moist, No intubated, No tympanic membranes, No other Neck: No supple, No non-tender, No jvd, No bruits, No masses, No thyromegaly, No nuchal rigidity, No other Respiratory: No clear to auscultation, No normal air movement, No congested cough, No crackles/rales, No diminished breath sounds, No intercostal retraction, No labored breathing, No respirations, No tactile fremitus, No wheezing, No other Cardiovascular: No regular rate and rhythm, No nl pulses, No bruits, No diastolic murmur, No edema, No gallop, No irregular rhythm, No jugular venous distention (JVD), No murmurs/extra sounds, No rub, No systolic murmur, No S3, No S4, No other Gastrointestinal: bowel sounds, distended, tender Extremities: normal pulses; No calf tenderness, No cyanosis, No clubbing, No edema, No pitting pedal edema, No palpable cord, No tenderness, No other Results Result Diagram: 06/17/18 0541 Results 24hrs Laboratory Tests Test 06/17/18 05:41 Sodium Level 137 Potassium Level 2.9 *L Chloride Level 94 L Carbon Dioxide Level 38 H Anion Gap 5 Blood Urea Nitrogen 10 Creatinine 0.61 Est Glomerular Filtrat Rate mL/min > 60 Glucose Level 132 Calcium Level 8.7 Medications Medication Current Medications Dextrose/Sodium Chloride 1,000 ml @ 150 mls/hr Q6H40M IV Last administered on 06/17/18at 03:56; Admin Dose 150 MLS/HR; Start 06/10/18 at 17:40 IV Flush (NS 3 ml) 3 ml PER PROTOCOL IV ; Start 06/10/18 at 18:00 Ondansetron HCl (Zofran Inj) 4 mg Q6H PRN IV NAUSEA/VOMITING Last administered on 06/16/18 09:03; Admin Dose 4 MG; Start 06/10/18 at 18:00 Famotidine (Pepcid) 20 mg Q12 PO Last administered on 06/16/18 09:03; Admin Dose 20 MG; Start 06/10/18 at 21:00 Piperacillin Sod/ Tazobactam Sod 100 ml @ 200 mls/hr Q8 IVPB Last administered on 06/17/18at 05:45; Admin Dose 200 MLS/HR; Start 06/11/18 at 19:00 Lorazepam (Ativan) 1 mg Q4H PRN IV anxiety Last administered on 06/12/18at 15:28; Admin Dose 1 MG; Start 06/11/18 at 21:30 Morphine Sulfate (morphine) 6 mg Q4H PRN PO SEVERE PAIN LEVEL 7-10; Start 06/15/18 at 23:00 IV Flush (NS 10 ml) 10 ml PRN PRN IV IV PROTOCOL; Start 06/16/18 at 17:00 ALFONSO WALTERS Jun 17, 2018 08:06
[2018-06-17] MEDS: METHYLNALTREXONE 12 MG/0.6 ML VIAL SC SCH (08:30)
--- NOTE | 2018-06-17 08:54 | PN ---
Date/Time of Note Date/Time of Note DATE: 06/17/18 TIME: 08:51 Assessment/Plan Lines/Catheters IV Catheter Type (from [facility]): PICC Line Ramsey in Place (from [facility]): No Assessment/Plan Chief Complaint/Hosp Course 1. CT with emphysematous gastritis, portal venous air, thickening of pylorus and duodenal bulb, thick-walled gallbladder, mesenteric inflammation in the upper abdomen with free fluid. Differential diagnosis includes infectious emphysematous gastritis (gram negatives and anaerobes usually) versus gastric emphysema versus malignancy versus significant gastritis with partial outlet obstruction. Patient is hemodynamically stable with normal white count without left shift and lactic acid has resolved. Continue medical treatment, however at any sign of decompensation will consider surgical exploration. UGI noted. EGD 06/2017: Large duodenal bulb ulcer with clear base and hiatal hernia; status post EGD 06/13/18: nodular hypertrophic ulcerated gastric mucosa, unable to get into duodenum abdominal pain improved -gi for stenting -Continue IV antibiotics -Judicious IV fluids -Close monitoring -Supportive measures -cont NG tube -ppi -N.p.o. 2. Acute hypokalemia -as above -replace and monitor 3. Anemia possibly dilutional -Monitor 4. Ovarian cancer, recent diagnosis -Oncology and gynecology consults 5. Nausea and vomiting -Antiemetics as needed -NGT Thank you. Patient seen and examined in collaboration with Dr. Ag Calle. Subjective 24 Hr Interval Summary UGI noted. No fevers, chills, sob, congested cough, cp, palpitations, cross, dizziness, d/dysuria. Continues to have large ng output. intermittent nausea Exam/Review of Systems Vital Signs Vitals Vital Signs Date Temp Pulse Resp B/P (MAP) Pulse Ox O2 O2 Flow FiO2 Time Delivery Rate 06/17/18 73 08:34 06/17/18 98.0 20 117/76 97 Room Air 07:18 (90) Intake and Output 06/16/18 06/16/18 06/17/18 1515:00 23:00 07:00 IntakeIntake Total 500 ml 1800 ml 1300 ml OutputOutput Total 1000 ml 1800 ml BalanceBalance 500 ml 800 ml -500 ml Exam Free Text/Dictation Constitutional: alert, oriented Psych: min anxiety Head: normocephalic, atraumatic Eyes: nl conjunctiva, EOMI, PERRL; No icteric ENMT: nl external ears & nose, nl lips & teeth, mucosa pink and moist, ngt Neck: supple, non-tender; No jvd Respiratory: normal air movement; No congested cough, No labored breathing, No wheezing Cardiovascular: regular rate and rhythm; No edema Gastrointestinal: soft, tender (Minimal epigastric), other (No rigidity); No distended, No rebound or guarding Musculoskeletal: nl extremities to inspection; No joint tenderness Extremities: normal pulses; No calf tenderness, No edema Neurological: nl mental status, nl speech, nl strength Skin: nl turgor; No rash or lesions, No diaphoresis Lymph: nl lymph nodes Results Result Diagram: 06/17/18 0541 IVELISSE CEJA NP Jun 17, 2018 08:54
[2018-06-17] MEDS: FAMOTIDINE 20 MG TAB PO SCH ×2 (09:03→21:05)
--- NOTE | 2018-06-17 10:14 | CONS ---
Assessment/Plan Assessment/Plan Hospital Course (Demo Recall) unfortunate 47 yo with recently diagnosed unresectable ovarian ca. Per pt she was to start chemo this week, admitted with N/V/abdo pain. CT scan of AP shows several concerning findings most pressing of which are:gastric thickening and emphysematous gastritis concerning for cancer vs necrosis with likely gastric outlet obstruction -I have called her out pt oncologist and we agreed that as soon as she is stable enough will administer chemo with carbo/taxol, given acuity of her situation the sooner she gets treatment more beneficial -Dr Calle has seen the pt, conservative mgmt at this point with NGT, IVF -GI has evaluated and is s/p EGD, recommending duodenal stent -once she has stent placed can given chemo -from an oncologic perspective it appears she needs neoadjuvant therapy prior to any potential debulking surgery. once she is stable we can consider administration of chemo. hopefully she stabilizes and she gets a window of opportunity for chemo -IVF and electrolyte replacement Thank you Dr Lee and Dr Landeros for allowing us to participate in the care of this pleasant pt Consultation Date/Type/Reason Admit Date/Time Jun 10, 2018 at 18:42 Initial Consult Date 06/11/18 Requesting Provider: ELMER LEE MD Date/Time of Note DATE: 06/17/18 TIME: 10:12 24 HR Interval Summary Free Text/Dictation s/p EGD showing: Gastric outlet obstruction secondary to infiltrating mass in the stomach Exam/Review of Systems Exam Vitals Vital Signs Date Temp Pulse Resp B/P (MAP) Pulse Ox O2 O2 Flow FiO2 Time Delivery Rate 06/17/18 73 08:34 06/17/18 98.0 20 117/76 97 Room Air 07:18 (90) Intake and Output 06/16/18 06/16/18 06/17/18 1515:00 23:00 07:00 IntakeIntake Total 500 ml 1800 ml 1300 ml OutputOutput Total 1000 ml 1800 ml BalanceBalance 500 ml 800 ml -500 ml Psych: no complaints, nl mood/affect Head: normocephalic, atraumatic Gastrointestinal: soft, nl liver, spleen, non-tender Results Result Diagram: 06/17/18 0541 Results 24hrs Laboratory Tests Test 06/17/18 05:41 Sodium Level 137 Potassium Level 2.9 *L Chloride Level 94 L Carbon Dioxide Level 38 H Anion Gap 5 Blood Urea Nitrogen 10 Creatinine 0.61 Est Glomerular Filtrat Rate mL/min > 60 Glucose Level 132 Calcium Level 8.7 Medications Medication Current Medications Dextrose/Sodium Chloride 1,000 ml @ 150 mls/hr Q6H40M IV Last administered on 06/17/18 03:56; Admin Dose 150 MLS/HR; Start 06/10/18 at 17:40 IV Flush (NS 3 ml) 3 ml PER PROTOCOL IV ; Start 06/10/18 at 18:00 Ondansetron HCl (Zofran Inj) 4 mg Q6H PRN IV NAUSEA/VOMITING Last administered on 06/16/18 09:03; Admin Dose 4 MG; Start 06/10/18 at 18:00 Famotidine (Pepcid) 20 mg Q12 PO Last administered on 06/17/18at 09:03; Admin Dose 20 MG; Start 06/10/18 at 21:00 Piperacillin Sod/ Tazobactam Sod 100 ml @ 200 mls/hr Q8 IVPB Last administered on 06/17/18at 05:45; Admin Dose 200 MLS/HR; Start 06/11/18 at 19:00 Lorazepam (Ativan) 1 mg Q4H PRN IV anxiety Last administered on 06/12/18at 15:28; Admin Dose 1 MG; Start 06/11/18 at 21:30 Morphine Sulfate (morphine) 6 mg Q4H PRN PO SEVERE PAIN LEVEL 7-10; Start 06/15/18 at 23:00 IV Flush (NS 10 ml) 10 ml PRN PRN IV IV PROTOCOL; Start 06/16/18 at 17:00 Methylnaltrexone [place] (Relistor) 12 mg Q48H SC ; Start 06/17/18 at 08:30 Potassium Chloride 100 ml @ 50 mls/hr Q2H IVPB ; Start 06/17/18 at 09:30; Stop 06/17/18 at 13:29 NICK VARELA Jun 17, 2018 10:14
[2018-06-17] MEDS: POTASSIUM CHLORIDE 100 ML IVPB SCH ×2 (11:20→16:18)
[2018-06-17] MEDS ORDERED: PHENOL 1.4% SOLN 180 ML BTL MT PRN (11:30)
--- NOTE | 2018-06-17 11:36 | PN ---
Date/Time of Note Date/Time of Note DATE: 06/17/18 TIME: 11:35 Assessment/Plan VTE Prophylaxis Risk score (from Ns)>0 risk: 3 SCD applied (from Ns): Yes Pharmacological prophylaxis: NA/contraindicated Pharm contraindication: surgical contra Lines/Catheters Urinary Cath still in place: No Assessment/Plan Hospital Course Ms Steward is a 47 yo female with ho severe PUD s/p partial gastrectomy last year, recently diagnosed ovarian cancer with chemotherapy scheduled to be started who presents to ED for management of nausea and vomiting. Found to have electrolyte derangements 2/[address] scan showing gastric thickening and emphysematous gastritis concerning for cancer vs necrosis with likely GOO, ovarian mass, possible abscess, etc. -Patient status post EGD that shows severely ulcerated gastric mucosa, biopsy not done because of air in gastric wall, unable to enter into the duodenum - NG tube per Dr Calle -Upper GI series does show delayed gastric emptying with extrinsic compression -Patient needs a gastric stents, defer to GI -Oncology following, recommend neoadjuvant chemotherapy prior to any debulking surgery, of note patient would like to follow-up with Dr. Vick moving forward - IV zosyn - Patient's prior oncologist is Dr Mae at [facility]. His number is [phone] extension [phone]. Metabolic alkalosis, JAMAL, hypokalemia: - IV fluids - Potassium repletion PUD: - PPI Prophylaxis: SCDs Result Diagram: 06/17/18 0541 Results 24hrs Laboratory Tests Test 06/17/18 05:41 Sodium Level 137 Potassium Level 2.9 *L Chloride Level 94 L Carbon Dioxide Level 38 H Anion Gap 5 Blood Urea Nitrogen 10 Creatinine 0.61 Est Glomerular Filtrat Rate mL/min > 60 Glucose Level 132 Calcium Level 8.7 Subjective 24 Hr Interval Summary Constitutional: no complaints Exam/Review of Systems Exam Vitals Vital Signs Date Temp Pulse Resp B/P (MAP) Pulse Ox O2 O2 Flow FiO2 Time Delivery Rate 06/17/18 73 08:34 06/17/18 98.0 20 117/76 97 Room Air 07:18 (90) Intake and Output 06/16/18 06/16/18 06/17/18 1515:00 23:00 07:00 IntakeIntake Total 500 ml 1800 ml 1300 ml OutputOutput Total 1000 ml 1800 ml BalanceBalance 500 ml 800 ml -500 ml Constitutional: alert, oriented Respiratory: clear to auscultation Cardiovascular: regular rate and rhythm Gastrointestinal: soft; No distended Musculoskeletal: nl extremities to inspection Results Results 24hrs Laboratory Tests Test 06/17/18 05:41 Sodium Level 137 Potassium Level 2.9 *L Chloride Level 94 L Carbon Dioxide Level 38 H Anion Gap 5 Blood Urea Nitrogen 10 Creatinine 0.61 Est Glomerular Filtrat Rate mL/min > 60 Glucose Level 132 Calcium Level 8.7 Medications Medication Current Medications Dextrose/Sodium Chloride 1,000 ml @ 150 mls/hr Q6H40M IV Last administered on 06/17/18 03:56; Admin Dose 150 MLS/HR; Start 06/10/18 at 17:40 IV Flush (NS 3 ml) 3 ml PER PROTOCOL IV ; Start 06/10/18 at 18:00 Ondansetron HCl (Zofran Inj) 4 mg Q6H PRN IV NAUSEA/VOMITING Last administered on 06/16/18 09:03; Admin Dose 4 MG; Start 06/10/18 at 18:00 Famotidine (Pepcid) 20 mg Q12 PO Last administered on 06/17/18 09:03; Admin Dose 20 MG; Start 06/10/18 at 21:00 Piperacillin Sod/ Tazobactam Sod 100 ml @ 200 mls/hr Q8 IVPB Last administered on 06/17/18at 05:45; Admin Dose 200 MLS/HR; Start 06/11/18 at 19:00 Lorazepam (Ativan) 1 mg Q4H PRN IV anxiety Last administered on 06/12/18at 15:28; Admin Dose 1 MG; Start 06/11/18 at 21:30 Morphine Sulfate (morphine) 6 mg Q4H PRN PO SEVERE PAIN LEVEL 7-10; Start 06/15/18 at 23:00 IV Flush (NS 10 ml) 10 ml PRN PRN IV IV PROTOCOL; Start 06/16/18 at 17:00 Methylnaltrexone [place] (Relistor) 12 mg Q48H SC ; Start 06/17/18 at 08:30 Potassium Chloride 100 ml @ 50 mls/hr Q2H IVPB Last administered on 06/17/18at 11:20; Admin Dose 50 MLS/HR; Start 06/17/18 at 09:30; Stop 06/17/18 at 13:29 Phenol (Chloraseptic Throat [place]) 2 spray Q2H PRN MT SORE THROAT; Start 06/17/18 at 11:30 OUSMANE CERDA Jun 17, 2018 11:36
[2018-06-18] VITALS (11 sets, daily range): BP systolic 110–145; BP diastolic 53–86; PULSE 44–89; RESP 16–20
[2018-06-18] MEDS: DEXTROSE 5%-0.45% NACL 1,000 ML IV SCH (04:14)
[2018-06-18] MEDS: PIPER-TAZO 3.375 GM IV (PMX) 100 ML IVPB SCH ×3 (05:06→21:51)
[2018-06-18] MEDS ORDERED: POTASSIUM CHLORIDE (SR) 20 MEQ TAB PO STA (07:10)
[2018-06-18] MEDS: D5W-0.45 NACL + KCL 40 MEQ 1,000 ML IV SCH ×2 (09:30→16:10)
[2018-06-18] MEDS: POTASSIUM CHLORIDE 100 ML IVPB SCH ×2 (09:38→12:12)
[2018-06-18] MEDS: FAMOTIDINE 20 MG TAB PO SCH ×2 (09:38→20:28)
--- NOTE | 2018-06-18 10:34 | PN ---
Date/Time of Note Date/Time of Note DATE: 06/18/18 TIME: 10:34 Assessment/Plan VTE Prophylaxis Risk score (from Ns)>0 risk: 7 SCD applied (from Ns): Yes Pharmacological prophylaxis: NA/contraindicated Pharm contraindication: low risk/ambulating Lines/Catheters Urinary Cath still in place: No Assessment/Plan Hospital Course Ms Steward is a 47 yo female with ho severe PUD s/p partial gastrectomy last year, recently diagnosed ovarian cancer with chemotherapy scheduled to be started who presents to ED for management of nausea and vomiting. Found to have electrolyte derangements 2/[address] scan showing gastric thickening and emphysematous gastritis concerning for cancer vs necrosis with likely GOO, ovarian mass, possible abscess, etc. -Patient status post EGD that shows severely ulcerated gastric mucosa, biopsy not done because of air in gastric wall, unable to enter into the duodenum - NG tube per Dr Calle -Upper GI series does show delayed gastric emptying with extrinsic compression -Patient needs a gastric stent, defer to GI -Oncology following, recommend neoadjuvant chemotherapy prior to any debulking surgery, of note patient would like to follow-up with Dr. Vick moving forward - IV zosyn - Patient's prior oncologist is Dr Mae at [facility]. His number is [phone] extension [phone]. Metabolic alkalosis, JAMAL, hypokalemia: - IV fluids - Potassium repletion PUD: - PPI Prophylaxis: SCDs Result Diagram: 06/18/18 0510 Results 24hrs Laboratory Tests Test 06/18/18 05:10 Sodium Level 139 Potassium Level 2.6 *L Chloride Level 93 L Carbon Dioxide Level 38 H Anion Gap 8 Blood Urea Nitrogen 13 Creatinine 0.62 Est Glomerular Filtrat Rate mL/min > 60 Glucose Level 128 Calcium Level 8.9 Magnesium Level 2.0 Subjective 24 Hr Interval Summary Constitutional: no complaints Exam/Review of Systems Exam Vitals Vital Signs Date Temp Pulse Resp B/P (MAP) Pulse Ox O2 O2 Flow FiO2 Time Delivery Rate 06/18/18 73 08:16 06/18/18 98.6 20 118/62 95 Room Air 07:35 (80) Intake and Output 06/17/18 06/17/18 06/18/18 1414:59 22:59 06:59 IntakeIntake Total 3100 ml 1100 ml OutputOutput Total 2500 ml BalanceBalance 600 ml 1100 ml Constitutional: alert, oriented Respiratory: clear to auscultation Cardiovascular: regular rate and rhythm Gastrointestinal: soft; No distended Musculoskeletal: nl extremities to inspection Results Results 24hrs Laboratory Tests Test 06/18/18 05:10 Sodium Level 139 Potassium Level 2.6 *L Chloride Level 93 L Carbon Dioxide Level 38 H Anion Gap 8 Blood Urea Nitrogen 13 Creatinine 0.62 Est Glomerular Filtrat Rate mL/min > 60 Glucose Level 128 Calcium Level 8.9 Magnesium Level 2.0 Medications Medication Current Medications IV Flush (NS 3 ml) 3 ml PER PROTOCOL IV ; Start 06/10/18 at 18:00 Ondansetron HCl (Zofran Inj) 4 mg Q6H PRN IV NAUSEA/VOMITING Last administered on 06/16/18at 09:03; Admin Dose 4 MG; Start 06/10/18 at 18:00 Famotidine (Pepcid) 20 mg Q12 PO Last administered on 06/18/18at 09:38; Admin Dose 20 MG; Start 06/10/18 at 21:00 Piperacillin Sod/ Tazobactam Sod 100 ml @ 200 mls/hr Q8 IVPB Last administered on 06/18/18at 05:06; Admin Dose 200 MLS/HR; Start 06/11/18 at 19:00 Lorazepam (Ativan) 1 mg Q4H PRN IV anxiety Last administered on 06/12/18at 15:28; Admin Dose 1 MG; Start 06/11/18 at 21:30 Morphine Sulfate (morphine) 6 mg Q4H PRN PO SEVERE PAIN LEVEL 7-10; Start 06/15/18 at 23:00 IV Flush (NS 10 ml) 10 ml PRN PRN IV IV PROTOCOL; Start 06/16/18 at 17:00 Methylnaltrexone [place] (Relistor) 12 mg Q48H SC ; Start 06/17/18 at 08:30 Phenol (Chloraseptic Throat [place]) 2 spray Q2H PRN MT SORE THROAT Last administered on 06/17/18at 21:23; Admin Dose 2 SPRAY; Start 06/17/18 at 11:30 Potassium Chloride 100 ml @ 50 mls/hr Q2H IVPB Last administered on 06/18/18at 09:38; Admin Dose 50 MLS/HR; Start 06/18/18 at 09:00; Stop 06/18/18 at 12:59 Potassium Chloride/Dextrose/ Sod Cl 1,000 ml @ 150 mls/hr Q6H40M IV ; Start 06/18/18 at 09:30 OUSMANE CERDA Jun 18, 2018 10:34
[2018-06-19] MEDS: D5W-0.45 NACL + KCL 40 MEQ 1,000 ML IV SCH ×5 (00:52→19:24)
[2018-06-19 02:10] VITALS: BP 133/70; PULSE 99; RESP 20
[2018-06-19] MEDS: PIPER-TAZO 3.375 GM IV (PMX) 100 ML IVPB SCH ×3 (06:31→22:31)
[2018-06-19] MEDS: METHYLNALTREXONE 12 MG/0.6 ML VIAL SC SCH (08:30)
[2018-06-19 08:33] VITALS: BP 129/77; PULSE 76; RESP 20
[2018-06-19] MEDS: FAMOTIDINE 20 MG TAB PO SCH ×2 (09:16→20:59)
[2018-06-19] MEDS ORDERED: IOHEXOL 14.3 MG(I)/ML (ADULT) BTL PO ONE (14:30)
[2018-06-19 15:03] VITALS: BP 134/81; PULSE 83; RESP 20
--- NOTE | 2018-06-19 16:18 | PN ---
Date/Time of Note Date/Time of Note DATE: 06/19/18 TIME: 16:17 Assessment/Plan VTE Prophylaxis Risk score (from Ns)>0 risk: 5 SCD applied (from Ns): Yes Pharmacological prophylaxis: NA/contraindicated Pharm contraindication: low risk/ambulating Lines/Catheters Urinary Cath still in place: No Assessment/Plan Hospital Course Ms Steward is a 47 yo female with ho severe PUD s/p partial gastrectomy last year, recently diagnosed ovarian cancer with chemotherapy scheduled to be started who presents to ED for management of nausea and vomiting. Found to have electrolyte derangements 2/[address] scan showing gastric thickening and emphysematous gastritis concerning for cancer vs necrosis with likely GOO, ovarian mass, possible abscess, etc. -Patient status post EGD that shows severely ulcerated gastric mucosa, biopsy not done because of air in gastric wall, unable to enter into the duodenum - NG tube per Dr Calle -Upper GI series does show delayed gastric emptying with extrinsic compression -Patient needs a gastric stent, defer to GI -Oncology following, recommend neoadjuvant chemotherapy prior to any debulking surgery, of note patient would like to follow-up with Dr. Vick moving forward - IV zosyn - Patient's prior oncologist is Dr Mae at [facility]. His number is [phone] extension [phone]. Metabolic alkalosis, JAMAL, hypokalemia: - IV fluids - Potassium repletion PUD: - PPI Prophylaxis: SCDs Result Diagram: 06/19/18 0454 Results 24hrs Laboratory Tests Test 06/19/18 04:54 Sodium Level 139 Potassium Level 3.2 L Chloride Level 95 L Carbon Dioxide Level 39 H Anion Gap 5 Blood Urea Nitrogen 15 Creatinine 0.64 Est Glomerular Filtrat Rate mL/min > 60 Glucose Level 133 Calcium Level 8.8 Subjective 24 Hr Interval Summary Constitutional: no complaints Exam/Review of Systems Exam Vitals Vital Signs Date Temp Pulse Resp B/P (MAP) Pulse Ox O2 O2 Flow FiO2 Time Delivery Rate 06/19/18 97.9 76 20 129/77 98 Room Air 08:33 (94) Intake and Output 06/18/18 06/18/18 06/19/18 1515:00 23:00 07:00 IntakeIntake Total 100 ml 3070 ml 2020 ml OutputOutput Total 1400 ml 1600 ml BalanceBalance 100 ml 1670 ml 420 ml Constitutional: alert, oriented Respiratory: clear to auscultation Cardiovascular: regular rate and rhythm Gastrointestinal: No distended Musculoskeletal: nl extremities to inspection Results Results 24hrs Laboratory Tests Test 06/19/18 04:54 Sodium Level 139 Potassium Level 3.2 L Chloride Level 95 L Carbon Dioxide Level 39 H Anion Gap 5 Blood Urea Nitrogen 15 Creatinine 0.64 Est Glomerular Filtrat Rate mL/min > 60 Glucose Level 133 Calcium Level 8.8 Medications Medication Current Medications IV Flush (NS 3 ml) 3 ml PER PROTOCOL IV ; Start 06/10/18 at 18:00 Ondansetron HCl (Zofran Inj) 4 mg Q6H PRN IV NAUSEA/VOMITING Last administered on 06/16/18 09:03; Admin Dose 4 MG; Start 06/10/18 at 18:00 Famotidine (Pepcid) 20 mg Q12 PO Last administered on 06/19/18 09:16; Admin Dose 20 MG; Start 06/10/18 at 21:00 Piperacillin Sod/ Tazobactam Sod 100 ml @ 200 mls/hr Q8 IVPB Last administered on 06/19/18at 14:41; Admin Dose 200 MLS/HR; Start 06/11/18 at 19:00 Lorazepam (Ativan) 1 mg Q4H PRN IV anxiety Last administered on 06/12/18at 15:28; Admin Dose 1 MG; Start 06/11/18 at 21:30 Morphine Sulfate (morphine) 6 mg Q4H PRN PO SEVERE PAIN LEVEL 7-10; Start 06/15/18 at 23:00 IV Flush (NS 10 ml) 10 ml PRN PRN IV IV PROTOCOL; Start 06/16/18 at 17:00 Methylnaltrexone [place] (Relistor) 12 mg Q48H SC ; Start 06/17/18 at 08:30 Phenol (Chloraseptic Throat [place]) 2 spray Q2H PRN MT SORE THROAT Last administered on 06/17/18at 21:23; Admin Dose 2 SPRAY; Start 06/17/18 at 11:30 Potassium Chloride/Dextrose/ Sod Cl 1,000 ml @ 150 mls/hr Q6H40M IV Last administered on 06/19/18at 10:17; Admin Dose 150 MLS/HR; Start 06/18/18 at 09:30 OUSMANE CERDA Jun 19, 2018 16:18
[2018-06-19] MEDS ORDERED: IOHEXOL 300MG/ML 150 ML BTL ONE (16:20)
[2018-06-19] MEDS ORDERED: SOD CHLORIDE 0.9% 100 ML ONE (16:20)
[2018-06-19 20:40] VITALS: BP 132/83; PULSE 94; RESP 18
[2018-06-20 02:12] VITALS: BP 128/72; PULSE 90; RESP 18
[2018-06-20] MEDS: D5W-0.45 NACL + KCL 40 MEQ 1,000 ML IV SCH ×4 (03:01→21:30)
[2018-06-20] MEDS: PIPER-TAZO 3.375 GM IV (PMX) 100 ML IVPB SCH (05:23)
--- NOTE | 2018-06-20 06:55 | PN ---
DATE: 06/19/2018 SUBJECTIVE: The patient was admitted to the hospital with history of vomiting. She had a CAT scan o f the abdomen done and upper endoscopy done. CAT scan of the abdomen showed evidence of gastric outl et obstruction. At that time, there was also air in the gastric wall, thickening of the gastric wall and entire antrum of the stomach was found to be thickened. Upper endoscopy showed a nodularity and ulcers of the antrum with complete closure of the pylorus. Brushings were done from the area, but i t was benign. She is felt to have a metastatic ovarian cancer in 03/2018 in [facility] and [facility]. Now, it is felt that she may have a metastatic ovarian cancer. She is seen by oncologist and upon discussion with Dr. Calle who seen her for general surgery problems . He believes conservative management for the time being and the metal stent for decompression of th e stomach and see if it can buy her some time before proceeding with definitive surgery. OBJECTIVE: GENERAL: At this time, she is alert. VITAL SIGNS: She is afebrile, blood pressure is 133/70. CARDIOVASCULAR: Normal heart sounds. RESPIRATORY: Normal breath sounds. ABDOMEN: Soft. LABORATORY WORKUP: Hemoglobin 11.1, WBC 6.6. Prothrombin time 12.9. CA-125 level is 171, CEA is 1. 8, CA 19-9 is 14.5. The liver panel was normal on 06/11/2018. PLAN: At this time is to put a metal stent and then I would discuss this again with Dr. Calle and see if this is the right thing to do. Possible complications of rupture during the procedure of the stomach, migration of the stent after the stent was put are all considered and all discussed with the patient. The patient seems to be agreeable for that. However, we will repeat CAT scan of the abdom en and see the difference between the last exam and this exam. Dictated By: KARMEN ARAGON MD NC/NTS Conf#: [id number] DID#: [id number] CC: ELMER CAVAZOS MD; OUSMANE CERDA MD; DARVIN CALLE MD;*EndCC*
[2018-06-20 07:47] VITALS: BP 131/60; PULSE 54; RESP 17
[2018-06-20] MEDS ORDERED: PANTOPRAZOLE 40 MG INJ ONE (08:37)
[2018-06-20] MEDS: FAMOTIDINE 20 MG TAB PO SCH (09:00)
[2018-06-20] MEDS: PANTOPRAZOLE 40 MG INJ IV SCH ×2 (09:10→18:08)
--- NOTE | 2018-06-20 11:56 | PN ---
Date/Time of Note Date/Time of Note DATE: 06/20/18 TIME: 11:55 Assessment/Plan VTE Prophylaxis Risk score (from Ns)>0 risk: 5 SCD applied (from Ns): Yes Pharmacological prophylaxis: NA/contraindicated Pharm contraindication: low risk/ambulating, surgical contra Lines/Catheters Urinary Cath still in place: No Assessment/Plan Hospital Course Ms Steward is a 47 yo female with ho severe PUD s/p partial gastrectomy last year, recently diagnosed ovarian cancer with chemotherapy scheduled to be started who presents to ED for management of nausea and vomiting. Found to have electrolyte derangements 2/[address] scan showing gastric thickening and emphysematous gastritis concerning for cancer vs necrosis with likely GOO, ovarian mass, possible abscess, etc. -Patient status post EGD that shows severely ulcerated gastric mucosa, biopsy not done because of air in gastric wall, unable to enter into the duodenum - NG tube per Dr Calle -Upper GI series does show delayed gastric emptying with extrinsic compression -Patient needs a gastric stent to be placed by GI which will likely occur on Wednesday -Oncology following, recommend neoadjuvant chemotherapy prior to any debulking surgery, of note patient would like to follow-up with Dr. Vick moving forward - IV zosyn - Patient's prior oncologist is Dr Mae at [facility]. His number is [phone] extension [phone]. Metabolic alkalosis, JAMAL, hypokalemia: - IV fluids - Potassium repletion PUD: - PPI Prophylaxis: SCDs Result Diagram: 06/20/18 0440 Results 24hrs Laboratory Tests Test 06/20/18 04:40 Sodium Level 141 Potassium Level 3.8 Chloride Level 96 L Carbon Dioxide Level 35 H Anion Gap 10 # Blood Urea Nitrogen 13 Creatinine 0.61 Est Glomerular Filtrat Rate mL/min > 60 Glucose Level 136 Calcium Level 8.8 Subjective 24 Hr Interval Summary Constitutional: no complaints Exam/Review of Systems Exam Vitals Vital Signs Date Temp Pulse Resp B/P (MAP) Pulse Ox O2 O2 Flow FiO2 Time Delivery Rate 06/20/18 98.0 54 17 131/60 98 07:47 (83) 06/20/18 Room Air 02:12 Intake and Output 06/19/18 06/19/18 06/20/18 1414:59 22:59 06:59 IntakeIntake Total 1440 ml 1580 ml 2550 ml OutputOutput Total 1550 ml 2700 ml BalanceBalance -110 ml -1120 ml 2550 ml Constitutional: alert, oriented Respiratory: clear to auscultation Cardiovascular: regular rate and rhythm Gastrointestinal: soft; No distended Musculoskeletal: nl extremities to inspection Results Results 24hrs Laboratory Tests Test 06/20/18 04:40 Sodium Level 141 Potassium Level 3.8 Chloride Level 96 L Carbon Dioxide Level 35 H Anion Gap 10 # Blood Urea Nitrogen 13 Creatinine 0.61 Est Glomerular Filtrat Rate mL/min > 60 Glucose Level 136 Calcium Level 8.8 Medications Medication Current Medications IV Flush (NS 3 ml) 3 ml PER PROTOCOL IV ; Start 06/10/18 at 18:00 Ondansetron HCl (Zofran Inj) 4 mg Q6H PRN IV NAUSEA/VOMITING Last administered on 06/16/18 09:03; Admin Dose 4 MG; Start 06/10/18 at 18:00 Lorazepam (Ativan) 1 mg Q4H PRN IV anxiety Last administered on 06/12/18 15:28; Admin Dose 1 MG; Start 06/11/18 at 21:30 Morphine Sulfate (morphine) 6 mg Q4H PRN PO SEVERE PAIN LEVEL 7-10; Start 06/15/18 at 23:00 IV Flush (NS 10 ml) 10 ml PRN PRN IV IV PROTOCOL; Start 06/16/18 at 17:00 Methylnaltrexone [place] (Relistor) 12 mg Q48H SC ; Start 06/17/18 at 08:30 Phenol (Chloraseptic Throat [place]) 2 spray Q2H PRN MT SORE THROAT Last administered on 06/17/18at 21:23; Admin Dose 2 SPRAY; Start 06/17/18 at 11:30 Potassium Chloride/Dextrose/ Sod Cl 1,000 ml @ 150 mls/hr Q6H40M IV Last administered on 06/20/18 09:10; Admin Dose 150 MLS/HR; Start 06/18/18 at 09:30 Pantoprazole (Protonix Iv) 40 mg BID@06,18 IV Last administered on 06/20/18 09:10; Admin Dose 40 MG; Start 06/20/18 at 08:30 OUSMANE CERDA Jun 20, 2018 11:56
[2018-06-20] MEDS: ONDANSETRON 4 MG INJ IV PRN (12:43)
[2018-06-20 14:16] VITALS: BP 129/70; PULSE 89; RESP 18
--- NOTE | 2018-06-20 15:07 | CONS ---
Assessment/Plan Assessment/Plan Hospital Course (Demo Recall) unfortunate 47 yo with recently diagnosed unresectable ovarian ca. Per pt she was to start chemo last week, admitted with N/V/abdo pain. CT scan of AP shows several concerning findings most pressing of which are:gastric thickening and emphysematous gastritis concerning for cancer vs necrosis with likely gastric outlet obstruction -I have called her out pt oncologist and we agreed that as soon as she is stable enough will administer chemo with carbo/taxol, given acuity of her situation the sooner she gets treatment more beneficial -Dr Calle has seen the pt, conservative mgmt at this point with NGT, IVF -GI has evaluated and is s/p EGD, recommending duodenal stent which per notes will happen Wednesday -once she has stent placed can give chemo, she understands it is risky given her current abdominal pathology -from an oncologic perspective it appears she needs neoadjuvant therapy prior to any potential debulking surgery. once she is stable we can consider administration of chemo. hopefully she stabilizes and she gets a window of opportunity for chemo -IVF and electrolyte replacement Thank you Dr Lee and Dr Landeros for allowing us to participate in the care of this pleasant pt Consultation Date/Type/Reason Admit Date/Time Jun 10, 2018 at 18:42 Initial Consult Date 06/11/18 Requesting Provider: ELMER LEE MD Date/Time of Note DATE: 06/20/18 TIME: 15:06 24 HR Interval Summary Free Text/Dictation feeling better anxious about starting treatment soon Exam/Review of Systems Exam Vitals Vital Signs Date Temp Pulse Resp B/P (MAP) Pulse Ox O2 O2 Flow FiO2 Time Delivery Rate 06/20/18 98.0 89 18 129/70 98 14:16 (89) 06/20/18 Room Air 02:12 Intake and Output 06/19/18 06/19/18 06/20/18 1515:00 23:00 07:00 IntakeIntake Total 1440 ml 1580 ml 2550 ml OutputOutput Total 1550 ml 2700 ml BalanceBalance -110 ml -1120 ml 2550 ml Constitutional: alert, oriented, frail Psych: no complaints, nl mood/affect Head: normocephalic, atraumatic Eyes: nl conjunctiva, EOMI, nl lids, nl sclera, PERRL Gastrointestinal: soft, nl liver, spleen, non-tender Musculoskeletal: nl extremities to inspection Results Result Diagram: 06/20/18 0440 Results 24hrs Laboratory Tests Test 06/20/18 04:40 Sodium Level 141 Potassium Level 3.8 Chloride Level 96 L Carbon Dioxide Level 35 H Anion Gap 10 # Blood Urea Nitrogen 13 Creatinine 0.61 Est Glomerular Filtrat Rate mL/min > 60 Glucose Level 136 Calcium Level 8.8 Medications Medication Current Medications IV Flush (NS 3 ml) 3 ml PER PROTOCOL IV ; Start 06/10/18 at 18:00 Ondansetron HCl (Zofran Inj) 4 mg Q6H PRN IV NAUSEA/VOMITING Last administered on 06/20/18 12:43; Admin Dose 4 MG; Start 06/10/18 at 18:00 Lorazepam (Ativan) 1 mg Q4H PRN IV anxiety Last administered on 06/12/18 15:28; Admin Dose 1 MG; Start 06/11/18 at 21:30 Morphine Sulfate (morphine) 6 mg Q4H PRN PO SEVERE PAIN LEVEL 7-10; Start 06/15/18 at 23:00 IV Flush (NS 10 ml) 10 ml PRN PRN IV IV PROTOCOL; Start 06/16/18 at 17:00 Methylnaltrexone [place] (Relistor) 12 mg Q48H SC ; Start 06/17/18 at 08:30 Phenol (Chloraseptic Throat [place]) 2 spray Q2H PRN MT SORE THROAT Last administered on 06/17/18 21:23; Admin Dose 2 SPRAY; Start 06/17/18 at 11:30 Potassium Chloride/Dextrose/ Sod Cl 1,000 ml @ 150 mls/hr Q6H40M IV Last administered on 06/20/18 09:10; Admin Dose 150 MLS/HR; Start 06/18/18 at 09:30 Pantoprazole (Protonix Iv) 40 mg BID@06,18 IV Last administered on 06/20/18 09:10; Admin Dose 40 MG; Start 06/20/18 at 08:30 NICK VARELA Jun 20, 2018 15:07
[2018-06-20 20:17] VITALS: BP 122/77; PULSE 72; RESP 18
[2018-06-21] VITALS (15 sets, daily range): BP systolic 93–141; BP diastolic 44–87; PULSE 80–106; RESP 16–29
[2018-06-21] MEDS: PANTOPRAZOLE 40 MG INJ IV SCH ×2 (05:23→18:25)
[2018-06-21] MEDS: D5W-0.45 NACL + KCL 40 MEQ 1,000 ML IV SCH ×4 (05:24→23:12)
[2018-06-21] MEDS: METHYLNALTREXONE 12 MG/0.6 ML VIAL SC SCH (08:30)
--- NOTE | 2018-06-21 10:30 | PN ---
Date/Time of Note Date/Time of Note DATE: 06/21/18 TIME: 10:28 Assessment/Plan Lines/Catheters IV Catheter Type (from [facility]): PICC Line Ramsey in Place (from [facility]): No Assessment/Plan Chief Complaint/Hosp Course 1. CT with emphysematous gastritis, portal venous air, thickening of pylorus and duodenal bulb, thick-walled gallbladder, mesenteric inflammation in the upper abdomen with free fluid. Differential diagnosis includes infectious emphysematous gastritis (gram negatives and anaerobes usually) versus gastric emphysema versus malignancy versus significant gastritis with partial outlet obstruction. Patient is hemodynamically stable with normal white count without left shift and lactic acid has resolved. Continue medical treatment, however at any sign of decompensation will consider surgical exploration. UGI noted.; Repeat CT noted with improvement of emphysematous gastritis EGD 06/2017: Large duodenal bulb ulcer with clear base and hiatal hernia; status post EGD 06/13/18: nodular hypertrophic ulcerated gastric mucosa, unable to get into duodenum abdominal pain improved -gi for stenting today -Continue IV antibiotics -Judicious IV fluids -Close monitoring -Supportive measures -cont NG tube for now -ppi -N.p.o. 2. Acute hypokalemia: Resolved 3. Anemia possibly dilutional -Monitor 4. Ovarian cancer, recent diagnosis -Per oncology -gynecology consult 5. Nausea and vomiting -Antiemetics as needed -NGT Thank you. Patient seen and examined in collaboration with Dr. Ag Calle. Subjective 24 Hr Interval Summary Feels well. Continues to have large NG tube output. Pending stent placement today. No fevers, chills, sob, congested cough, cp, palpitations, cross, dizziness, nausea, vomiting, diarrhea, dysuria. Exam/Review of Systems Vital Signs Vitals Vital Signs Date Temp Pulse Resp B/P (MAP) Pulse Ox O2 O2 Flow FiO2 Time Delivery Rate 06/21/18 98.2 80 16 141/73 96 Room Air 07:24 (95) Intake and Output 06/20/18 06/20/18 06/21/18 1414:59 22:59 06:59 IntakeIntake Total 650 ml 1150 ml 850 ml OutputOutput Total 800 ml 550 ml BalanceBalance 650 ml 350 ml 300 ml Exam Free Text/Dictation Constitutional: alert, oriented Psych: min anxiety Head: normocephalic, atraumatic Eyes: nl conjunctiva, EOMI, PERRL; No icteric ENMT: nl external ears & nose, nl lips & teeth, mucosa pink and moist, ngt Neck: supple, non-tender; No jvd Respiratory: normal air movement; No congested cough, No labored breathing, No wheezing Cardiovascular: regular rate and rhythm; No edema Gastrointestinal: soft, tender (Minimal epigastric), other (No rigidity); No distended, No rebound or guarding Musculoskeletal: nl extremities to inspection; No joint tenderness Extremities: normal pulses; No calf tenderness, No edema Neurological: nl mental status, nl speech, nl strength Skin: nl turgor; No rash or lesions, No diaphoresis Lymph: nl lymph nodes Results Result Diagram: 06/20/18 0440 IVELISSE CEJA NP Jun 21, 2018 10:30
--- NOTE | 2018-06-21 10:31 | PN ---
Date/Time of Note Date/Time of Note DATE: 06/21/18 TIME: 10:23 Assessment/Plan VTE Prophylaxis Risk score (from Nsg)>0 risk: 5 SCD applied (from Nsg): Yes Pharmacological prophylaxis: other Lines/Catheters IV Catheter Type (from Nrsg): PICC Line Central line still needed: Yes Urinary Cath still in place: No Assessment/Plan Hospital Course A/p: 47 yo female with ho severe PUD s/p partial gastrectomy last year, recently diagnosed ovarian cancer with chemotherapy scheduled to be started who presents to ED for management of nausea and vomiting. Found to have electrolyte derangements 2/[address] scan showing gastric thickening and emphysematous gastritis concerning for cancer vs necrosis with likely GOO, ovarian mass, possible abscess, etc. # N/V -Patient status post EGD that shows severely ulcerated gastric mucosa, biopsy not done because of air in gastric wall, unable to enter into the duodenum. -Upper GI series does show delayed gastric emptying with extrinsic compression -For now continue NG tube per Dr Calle -Patient needs a gastric stent to be placed by GI today -Oncology following, recommend neoadjuvant chemotherapy prior to any d ebulking surgery, of note patient would like to follow-up with Dr. Vick moving forward - Patient's prior oncologist is Dr Mae at [facility]. His number is [phone]. Metabolic alkalosis, JAMAL, hypokalemia: Appears to be resolving now -Continue IV fluids - Potassium repletion as needed PUD: -Continue PPI Prophylaxis: SCDs Result Diagram: 06/20/18 0440 Results 24hrs Laboratory Tests Test 06/20/18 14:54 Urine Test NEGATIVE Subjective 24 Hr Interval Summary Free Text/Dictation No acute events overnight. Awaiting EGD for later today. Exam/Review of Systems Exam Vitals Vital Signs Date Temp Pulse Resp B/P (MAP) Pulse Ox O2 O2 Flow FiO2 Time Delivery Rate 06/21/18 98.2 80 16 141/73 96 Room Air 07:24 (95) Intake and Output 06/20/18 06/20/18 06/21/18 1414:59 22:59 06:59 IntakeIntake Total 650 ml 1150 ml 850 ml OutputOutput Total 800 ml 550 ml BalanceBalance 650 ml 350 ml 300 ml Exam Constitutional: alert, oriented Respiratory: clear to auscultation Cardiovascular: regular rate and rhythm Gastrointestinal: soft; No distended Musculoskeletal: nl extremities to inspection Results Results 24hrs Laboratory Tests Test 06/20/18 14:54 Urine Test NEGATIVE Medications Medication Current Medications IV Flush (NS 3 ml) 3 ml PER PROTOCOL IV ; Start 06/10/18 at 18:00 Ondansetron HCl (Zofran Inj) 4 mg Q6H PRN IV NAUSEA/VOMITING Last administered on 06/20/18at 12:43; Admin Dose 4 MG; Start 06/10/18 at 18:00 Lorazepam (Ativan) 1 mg Q4H PRN IV anxiety Last administered on 06/12/18at 15:28; Admin Dose 1 MG; Start 06/11/18 at 21:30 Morphine Sulfate (morphine) 6 mg Q4H PRN PO SEVERE PAIN LEVEL 7-10; Start 06/15/18 at 23:00 IV Flush (NS 10 ml) 10 ml PRN PRN IV IV PROTOCOL; Start 06/16/18 at 17:00 Methylnaltrexone [place] (Relistor) 12 mg Q48H SC ; Start 06/17/18 at 08:30 Phenol (Chloraseptic Throat [place]) 2 spray Q2H PRN MT SORE THROAT Last administered on 06/17/18at 21:23; Admin Dose 2 SPRAY; Start 06/17/18 at 11:30 Potassium Chloride/Dextrose/ Sod Cl 1,000 ml @ 150 mls/hr Q6H40M IV Last administered on 06/21/18 05:24; Admin Dose 150 MLS/HR; Start 06/18/18 at 09:30 Pantoprazole (Protonix Iv) 40 mg BID@06,18 IV Last administered on 06/21/18at 05:23; Admin Dose 40 MG; Start 06/20/18 at 08:30 EUGENIE ARMENDARIZ Jun 21, 2018 10:31
--- NOTE | 2018-06-21 13:00 | PN ---
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 PHYSICAL EXAMINATION: GENERAL: She is alert. ABDOMEN: Soft. DIAGNOSTIC DATA: Repeat CAT scan of the abdomen shows evidence of some improvement in the gas distri bution of the gastric wall; however, she remains to have a gastric outlet obstruction. PLAN: At this time, I discussed at length with Dr. Calle and Dr. Landeros. Consensus of the opinio n is that the patient duodenal stent so that we can decompress the stomach so that we can give her enteral nutrition. Once she is strong enough at that time, surgery can be considered, but meanwh ile everybody agreed that the patient needs a self-expanding metal stent into the duodenal obstructio n area. Dictated By: KARMEN ARAGON MD NC/NTS Conf#: [id number] DID#: [id number] CC: DARVIN CALLE MD; ELMER CAVAZOS MD; OUSMANE LANDEROS MD;*EndCC*
--- NOTE | 2018-06-21 15:35 | PREAC ---
Date/Time of Note Date/Time of Note DATE: 06/21/18 TIME: 15:32 Anesthesia Eval and Record Evaluation Time Pre-Procedure Interview DATE: 06/21/18 TIME: 15:32 Age 47 Sex female NPO: 8 hrs Preoperative diagnosis Nausea. gastric outlet obstruction Planned procedure EGD sstent placemenet Past Medical History Past Medical History: None Surgery & Anesthesia Issues No known issue Meds Anticoagulation: No Beta Hayde within 24 hr: No Reason Beta Hayde not given: Pt. not on B-Hayde No Active Prescriptions or Reported Meds Current Medications IV Flush (NS 3 ml) 3 ml PER PROTOCOL IV ; Start 06/10/18 at 18:00 Ondansetron HCl (Zofran Inj) 4 mg Q6H PRN IV NAUSEA/VOMITING Last administered on 06/20/18at 12:43; Admin Dose 4 MG; Start 06/10/18 at 18:00 Lorazepam (Ativan) 1 mg Q4H PRN IV anxiety Last administered on 06/12/18at 15:28; Admin Dose 1 MG; Start 06/11/18 at 21:30 Morphine Sulfate (morphine) 6 mg Q4H PRN PO SEVERE PAIN LEVEL 7-10; Start 06/15/18 at 23:00 IV Flush (NS 10 ml) 10 ml PRN PRN IV IV PROTOCOL; Start 06/16/18 at 17:00 Methylnaltrexone [place] (Relistor) 12 mg Q48H SC ; Start 06/17/18 at 08:30 Phenol (Chloraseptic Throat [place]) 2 spray Q2H PRN MT SORE THROAT Last administered on 06/17/18at 21:23; Admin Dose 2 SPRAY; Start 06/17/18 at 11:30 Potassium Chloride/Dextrose/ Sod Cl 1,000 ml @ 150 mls/hr Q6H40M IV Last administered on 06/21/18at 12:25; Admin Dose 150 MLS/HR; Start 06/18/18 at 09:30 Pantoprazole (Protonix Iv) 40 mg BID@06,18 IV Last administered on 06/21/18at 05:23; Admin Dose 40 MG; Start 06/20/18 at 08:30 Meds reviewed: Yes Allergies Coded Allergies: No Known Allergy (Unverified , 06/10/18) Allergies Reviewed: Yes Labs/Studies Labs Reviewed: Reviewed by anesthesiologist Result Diagram: 06/20/18 0440 test: Negative Studies: ECG (sr), CXR (nl) Pre-procedure Exam Last vitals Vital Signs Date Temp Pulse Resp B/P (MAP) Pulse Ox O2 O2 Flow FiO2 Time Delivery Rate 06/21/18 98.2 80 16 141/73 96 Room Air 07:24 (95) Airway: Adequate mouth opening Mallampati: Mallampati I Teeth: Normal Lung: Normal Heart: Normal ASA Physical Status ASA physical status: 2 Emergency: None Planned Anesthetic General/MAC: MAC Planned Pain Management Parenteral pain med Pre-operative Attestations Prior to commencing anesthesia and surgery, the patient was re-evaluated, there was verification of: *The patient's identity *The results of appropriate recent lab work and preoperative vital signs *The above evaluation not changing prior to induction *Anesthetic plan, risk benefits, alternative and complications discussed with pa tient/family; questions answered; patient/family understands, accepts and wishes to proceed. RALEIGH GUTIERREZ MD Jun 21, 2018 15:35
[2018-06-21] MEDS ORDERED: PROPOFOL 20 ML ONE ×2 (15:43→16:38)
[2018-06-21] MEDS ORDERED: FENTAnyl 50 MCG/ML VIAL ONE (15:43)
[2018-06-21] MEDS ORDERED: ONDANSETRON 4 MG INJ IV PRN (16:30)
[2018-06-21] MEDS ORDERED: LABETALOL HCL 20MG INJ IV PRN (16:30)
[2018-06-21] MEDS ORDERED: DIPHENHYDRAMINE 50 MG INJ IV PRN (16:30)
[2018-06-21] MEDS ORDERED: hydrALAzine 20 MG INJ IV PRN (16:30)
[2018-06-21] MEDS ORDERED: MEPERIDINE 25 MG INJ IV PRN (16:30)
[2018-06-21] MEDS ORDERED: HYDROmorphONE 1 MG/5 ML IV SYRINGE IV PRN ×3 (16:30)
[2018-06-21] MEDS ORDERED: ONDANSETRON 4 MG INJ ONE (16:50)
[2018-06-21] MEDS ORDERED: METOCLOPRAMIDE 10 MG INJ ONE (16:50)
[2018-06-21] MEDS ORDERED: SUCCINYLCHOLINE CHLORIDE 100 MG/5 ML SYG IV ONE (16:52)
--- NOTE | 2018-06-21 17:12 | OPR ---
Date/Time of Note Date/Time of Note DATE: 06/21/18 TIME: 17:07 Operative Report Preoperative Diagnosis antral and duod obstruction Postoperative Diagnosis same nodularity of distal 2/3of stomach Operation/Procedure Performed egd and duodenal wallflex deployement Surgeon see signature line Case Finisher none Anesthesia Type: general Anesthesiologist: RALEIGH GUTIERREZ MD Estimated Blood Loss: none Transfusion none Specimen gastric bx Grafts/Implants none Complications none Disposition: PACU Indications antral and duodenal obstruction Procedure Description egd performed 02/11 wall flex sems placed through antral and duodenal malignant stricture bx done KARMEN ARAGON MD Jun 21, 2018 17:12
[2018-06-21] MEDS: ONDANSETRON 4 MG INJ IV PRN (20:30)
--- NOTE | 2018-06-21 21:17 | GILP ---
DATE OF PROCEDURE: NAME OF PROCEDURE: Esophagogastroduodenoscopy and placement of a self-expanding metal stent through the antrum and the duodenal stricture. PREOPERATIVE DIAGNOSIS: The patient has a history of malignant stricture in the distal half of the a ntrum as well as the pylorus, and because of this metal stent was deployed. The patient was intubated by anesthesiologist, Dr. Willingham. When the patient was intubated, while she is sleeping, the colonoscope was inserted through the mouth into the esophagus. Esophagus appea red normal. Scope at this time was advanced into the stomach. Stomach showed severe nodularity of t he antrum as well as proximal bulb of the duodenum, probably first part of the duodenum was ____, and through this of fluid through the scope the previously placed guidewire apparently was found to be i n the stomach, so that the guidewire was removed. At this time, the guidewire was removed from the s tomach and reintroduced through the scope, and the guidewire was passed through the malignant strictu re of the duodenum and antrum into the third part of the duodenum. Over this guidewire, a 10 x 12 Wa llFlex self-expanding metal stent was gently advanced over the guidewire so that the distal end of th e metal stent would be located in the very distal to the stricture. At this time, the stent was depl oyed very slowly and a complete deployment was achieved. When complete deployment was achieved the p roximal end of the metal stent was found to be well in the antrum and on the fluoroscopy. This proce dure was done and the proximal end of the stent was found to be nicely expanded and the distal end of the stent also was found to be nicely expanded. The stricture was found to be in the duodenal antru m and then the duodenal bulb. There is a compression of the stent by the tumor. Scope at this time was withdrawn. Also, several biopsies were obtained from the antrum and the procedure was terminated . PLAN: Recommend ____. Dictated By: KARMEN ARAGON MD NC/NTS Conf#: [id number] DID#: [id number] CC: OUSMANE CERDA MD; DARVIN BOURNE MD; ELMER CAVAZOS MD;*EndCC*
--- NOTE | 2018-06-21 21:17 | GILP ---
DATE OF PROCEDURE: PROCEDURE: Esophagogastroduodenoscopy. PREOPERATIVE DIAGNOSIS: The patient is presenting with history of vomiting and CAT scan of the abdom en and previous endoscopy showed evidence of a nodularity of the antrum with ulceration and with stri cture of the antrum and the duodenum. At this time, procedure is performed to evaluate the stricture , to do biopsies of the antrum to rule out malignancy and also to facilitate placement of a metal anthony nt. POSTOPERATIVE DIAGNOSIS: Severe nodularity and ulceration of the distal half of the stomach includin g the antrum and the duodenum, up to the second part of the duodenum. Multiple biopsies were obtaine d. DESCRIPTION OF PROCEDURE: A guidewire was inserted through this biopsy channel into the duodenum for placement of a metal stent. After the informed written consent was obtained, the patient was asked to be intubated by anesthesiol ogist, Dr. Willingham. When the patient was anesthetized, the Olympus video upper endoscope was inse rted into the oropharynx, then into the esophagus, subsequently into the stomach and then into the du odenum. The stomach showed evidence of severe nodularity in the mid body and the antrum of the stoma ch and scattered areas of deep ulcers noted in this area as well. At this time, multiple biopsies we re obtained in the antrum and also including part of the duodenum. Scope, it looks like, was very ge ntly advanced through the stricture into the second and third part of duodenum and through this, it a ppears that a metal stent could be placed through the stricture. Initially, the guidewire was insert ed through the scope through the strictured area into the second and third part of the duodenum and s cope was withdrawn. PLAN: Recommend to proceed with placement of a metal stent through the colonoscope and await for the pathology report. Dictated By: KARMEN ARAGON MD NC/NTS Conf#: [id number] DID#: [id number] CC: ELMER CAVAZOS MD; OUSMANE CERDA MD;*End*
[2018-06-22 01:40] VITALS: BP 129/67; PULSE 89; RESP 18
[2018-06-22] MEDS: morphine 2 MG INJ IV PRN ×3 (04:37→20:09)
[2018-06-22] MEDS: PANTOPRAZOLE 40 MG INJ IV SCH ×2 (05:33→17:56)
[2018-06-22] MEDS: ONDANSETRON 4 MG INJ IV PRN ×2 (05:38→20:10)
[2018-06-22] MEDS: D5W-0.45 NACL + KCL 40 MEQ 1,000 ML IV SCH (05:39)
[2018-06-22 08:06] VITALS: BP 133/62; PULSE 90; RESP 18
--- NOTE | 2018-06-22 08:51 | PN ---
Date/Time of Note Date/Time of Note DATE: 06/22/18 TIME: 08:48 Assessment/Plan Lines/Catheters IV Catheter Type (from [facility]): PICC Line Ramsey in Place (from [facility]): No Assessment/Plan Chief Complaint/Hosp Course 1. CT with emphysematous gastritis, portal venous air, thickening of pylorus and duodenal bulb, thick-walled gallbladder, mesenteric inflammation in the upper abdomen with free fluid. Differential diagnosis includes infectious emphysematous gastritis (gram negatives and anaerobes usually) versus gastric emphysema versus malignancy versus significant gastritis with partial outlet obstruction. Patient is hemodynamically stable with normal white count without left shift and lactic acid has resolved. Continue medical treatment, however at any sign of decompensation will consider surgical exploration. UGI noted.; Repeat CT noted with improvement of emphysematous gastritis EGD 06/2017: Large duodenal bulb ulcer with clear base and hiatal hernia; status post EGD 06/13/18: nodular hypertrophic ulcerated gastric mucosa, unable to get into duodenum; EGD w stent placement 06/21/18 vomiting -Per gi>antiemetics/motility agents -Judicious IV fluids -Close monitoring -Supportive measures 2. Acute hyperkalemia: Resolved 3. Anemia possibly dilutional -Monitor 4. Ovarian cancer, recent diagnosis -Per oncology -gynecology consult 5. Nausea and vomiting -as above Thank you. Patient seen and examined in collaboration with Dr. Ag Calle. Subjective 24 Hr Interval Summary S/p egd stenting yesterday. Now with vomiting. No fevers, chills, sob, congested cough, cp, palpitations, cross, dizziness, d/dysuria. Exam/Review of Systems Vital Signs Vitals Vital Signs Date Temp Pulse Resp B/P (MAP) Pulse Ox O2 O2 Flow FiO2 Time Delivery Rate 06/22/18 98.2 90 18 133/62 92 Room Air 08:06 (85) Intake and Output 06/21/18 06/21/18 06/22/18 1414:59 22:59 06:59 IntakeIntake Total 1000 ml 2200 ml OutputOutput Total 250 ml 350 ml BalanceBalance 1000 ml -250 ml 1850 ml Exam Free Text/Dictation Constitutional: alert, oriented Psych: min anxiety Head: normocephalic, atraumatic Eyes: nl conjunctiva, EOMI, PERRL; No icteric ENMT: nl external ears & nose, nl lips & teeth, mucosa pink and moist Neck: supple, non-tender; No jvd Respiratory: normal air movement; No congested cough, No labored breathing, No wheezing Cardiovascular: regular rate and rhythm; No edema Gastrointestinal: soft, tender (Minimal epigastric), other (No rigidity); No distended, No rebound or guarding Musculoskeletal: nl extremities to inspection; No joint tenderness Extremities: normal pulses; No calf tenderness, No edema Neurological: nl mental status, nl speech, nl strength Skin: nl turgor; No rash or lesions, No diaphoresis Lymph: nl lymph nodes Results Result Diagram: 06/22/1843206/22/18 0433 IVELISSE CEJA NP Jun 22, 2018 08:51
--- NOTE | 2018-06-22 10:11 | PAC ---
Date/Time of Note Date/Time of Note DATE: 06/22/18 TIME: 10:11 Post-Anesthesia Notes Post-Anesthesia Note Last documented vital signs Vital Signs Date Temp Pulse Resp B/P (MAP) Pulse Ox O2 O2 Flow FiO2 Time Delivery Rate 06/22/18 98.2 90 18 133/62 92 Room Air 08:06 (85) Activity: WNL Respiratory function: WNL Cardiovascular function: WNL Mental status: Baseline Pain reasonably controlled: Yes Hydration appropriate: Yes Nausea/Vomiting absent: No RALEIGH GUTIERREZ MD Jun 22, 2018 10:11
[2018-06-22] MEDS: METOCLOPRAMIDE 10 MG INJ IV SCH ×2 (11:52→18:00)
[2018-06-22] MEDS: DEXTROSE 5%-0.45% NACL 1,000 ML IV SCH (12:00)
--- NOTE | 2018-06-22 12:24 | CONS ---
Assessment/Plan Assessment/Plan Hospital Course (Demo Recall) unfortunate 47 yo with recently diagnosed unresectable ovarian ca. Per pt she was to start chemo last week, admitted with N/V/abdo pain. CT scan of AP shows several concerning findings most pressing of which are:gastric thickening and emphysematous gastritis concerning for cancer vs necrosis with likely gastric outlet obstruction -I have called her out pt oncologist Dr Dr Mae (her oncologist at [facility].) he informed me her pathologic diagnosis was difficult and cancer type ID testing was done revealing ovarian ca. he also told me she had bilateral ovarian masses. 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 also she had gastric surgery October 2017 at [place] in [facility] In apr 2018, her surgeon was a Dr Aquino (?) will try and get records from Dr Christianson and Dr Barker, I informed pathology dept re where she had surgery and they will try and obtain reports -Dr Suarez also informed me she has motility issues due to tumor infiltration of stomach and stent will not allow her to eat. will discuss with Dr calle if maybe a j tube can help -Dr Calle has seen the pt, conservative mgmt at this point with NGT, IVF -if she has gastric cancer, no role for surgery unless she has obstruction Thank you Dr Lee and Dr Landeros for allowing us to participate in the care of this pleasant pt Consultation Date/Type/Reason Admit Date/Time Jun 10, 2018 at 18:42 Initial Consult Date 06/11/18 Requesting Provider: ELMER LEE MD Date/Time of Note DATE: 06/22/18 TIME: 12:23 24 HR Interval Summary Free Text/Dictation rec'd call from Dr Suarez who was informed that path reveals signet ring cells and appears to be gastric ca NGT out, she feels better Constitutional: improved Exam/Review of Systems Exam Vitals Vital Signs Date Temp Pulse Resp B/P (MAP) Pulse Ox O2 O2 Flow FiO2 Time Delivery Rate 06/22/18 98.2 90 18 133/62 92 Room Air 08:06 (85) Intake and Output 06/21/18 06/21/18 06/22/18 1414:59 22:59 06:59 IntakeIntake Total 1000 ml 2200 ml OutputOutput Total 250 ml 350 ml BalanceBalance 1000 ml -250 ml 1850 ml Constitutional: alert, oriented, frail Head: atraumatic Eyes: nl conjunctiva Results Result Diagram: 06/22/183 06/22/18432 Results 24hrs Laboratory Tests Test 06/22/18 04:33 White Blood Count 5.4 Red Blood Count 3.95 L Hemoglobin 10.5 L Hematocrit 33.6 L Mean Corpuscular Volume 85.1 Mean Corpuscular Hemoglobin 26.6 L Mean Corpuscular Hemoglobin Concent 31.3 L Red Cell Distribution Width 20.5 H Platelet Count 285 Mean Platelet Volume 9.9 Immature Granulocytes % 0.600 H Neutrophils % 79.3 H Lymphocytes % 14.2 L Monocytes % 5.1 Eosinophils % 0.6 Basophils % 0.2 Nucleated Red Blood Cells % 0.0 Immature Granulocytes # 0.030 Neutrophils # 4.3 Lymphocytes # 0.8 Monocytes # 0.3 Eosinophils # 0.0 Basophils # 0.0 Nucleated Red Blood Cells # 0.0 Sodium Level 138 Potassium Level 5.3 H Chloride Level 103 Carbon Dioxide Level 24 # Anion Gap 11 Blood Urea Nitrogen 12 Creatinine 0.53 Est Glomerular Filtrat Rate mL/min > 60 Glucose Level 128 Calcium Level 8.9 Phosphorus Level 3.0 Magnesium Level 1.5 L Medications Medication Current Medications IV Flush (NS 3 ml) 3 ml PER PROTOCOL IV ; Start 06/10/18 at 18:00 Ondansetron HCl (Zofran Inj) 4 mg Q6H PRN IV NAUSEA/VOMITING Last administered on 06/22/18at 05:38; Admin Dose 4 MG; Start 06/10/18 at 18:00 Lorazepam (Ativan) 1 mg Q4H PRN IV anxiety Last administered on 06/12/18at 15:28; Admin Dose 1 MG; Start 06/11/18 at 21:30 IV Flush (NS 10 ml) 10 ml PRN PRN IV IV PROTOCOL; Start 06/16/18 at 17:00 Methylnaltrexone [place] (Relistor) 12 mg Q48H SC ; Start 06/17/18 at 08:30 Phenol (Chloraseptic Throat [place]) 2 spray Q2H PRN MT SORE THROAT Last administered on 06/17/18at 21:23; Admin Dose 2 SPRAY; Start 06/17/18 at 11:30 Pantoprazole (Protonix Iv) 40 mg BID@06,18 IV Last administered on 06/22/18at 05:33; Admin Dose 40 MG; Start 06/20/18 at 08:30 Morphine Sulfate (morphine) 2 mg Q4H PRN IV SEVERE PAIN LEVEL 7-10 Last administered on 06/22/18at 04:37; Admin Dose 2 MG; Start 06/21/18 at 21:00 Metoclopramide HCl (Reglan) 10 mg Q6 IV Last administered on 06/22/18at 11:52; Admin Dose 10 MG; Start 06/22/18 at 12:00 Dextrose/Sodium Chloride 1,000 ml @ 100 mls/hr Q10H IV Last administered on 06/22/18at 12:00; Admin Dose 100 MLS/HR; Start 06/22/18 at 12:00 Magnesium Sulfate 50 ml @ 25 mls/hr ONCE ONCE IVPB ; Start 06/22/18 at 13:00; Stop 06/22/18 at 14:59 NICK VARELA Jun 22, 2018 12:24
[2018-06-22] MEDS ORDERED: MAGNESIUM SULFATE 2 GM/50 ML 50 ML IVPB ONE (13:00)
[2018-06-22 14:15] VITALS: BP 122/58; PULSE 87; RESP 18
--- NOTE | 2018-06-22 16:12 | PN ---
Date/Time of Note Date/Time of Note DATE: 06/22/18 TIME: 16:01 Assessment/Plan VTE Prophylaxis Risk score (from Nsg)>0 risk: 1 SCD applied (from Nsg): Yes Pharmacological prophylaxis: NA/contraindicated Pharm contraindication: surgical contra Lines/Catheters IV Catheter Type (from Nrsg): PICC Line Central line still needed: Yes Urinary Cath still in place: No Assessment/Plan Assessment/Plan 1. Severely ulcerated mucosa s/p EGD - GI on board and appreciate recommendations. Unable to obtain biopsies due to air in gastric wall. Unable to enter into the duodenum 2. Partial obstructive gastric outlet - Surgery on board and appreciate recommendations - s/p placement of stent by GI but still no improvement in PO intake - CT scan showing gastric thickening and emphysematous gastritis concerning for cancer vs necrosis with likely GOO, ovarian mass, possible abscess, etc. 3. Ovarian CA - Oncology on board and once stable, recommend neoadjuvant chemotherapy prior to any debulking surgery. Patient's prior oncologist is Dr Mae at [facility]. 4. JAMAL - resolved 5. PUD - GI on board - PPI 6. Disposition - Continue monitoring in Med/Surg and advance diet as tolerated - once stable, will need initiation of chemotherapy per Oncology recommendations Result Diagram: 06/22/18 0433 06/22/18 0433 Results 24hrs Laboratory Tests Test 06/22/18 04:33 White Blood Count 5.4 Red Blood Count 3.95 L Hemoglobin 10.5 L Hematocrit 33.6 L Mean Corpuscular Volume 85.1 Mean Corpuscular Hemoglobin 26.6 L Mean Corpuscular Hemoglobin Concent 31.3 L Red Cell Distribution Width 20.5 H Platelet Count 285 Mean Platelet Volume 9.9 Immature Granulocytes % 0.600 H Neutrophils % 79.3 H Lymphocytes % 14.2 L Monocytes % 5.1 Eosinophils % 0.6 Basophils % 0.2 Nucleated Red Blood Cells % 0.0 Immature Granulocytes # 0.030 Neutrophils # 4.3 Lymphocytes # 0.8 Monocytes # 0.3 Eosinophils # 0.0 Basophils # 0.0 Nucleated Red Blood Cells # 0.0 Sodium Level 138 Potassium Level 5.3 H Chloride Level 103 Carbon Dioxide Level 24 # Anion Gap 11 Blood Urea Nitrogen 12 Creatinine 0.53 Est Glomerular Filtrat Rate mL/min > 60 Glucose Level 128 Calcium Level 8.9 Phosphorus Level 3.0 Magnesium Level 1.5 L Subjective 24 Hr Interval Summary Free Text/Dictation Patient still with nausea and vomiting after eating clears. No presence of blood in emesis. Exam/Review of Systems Exam Vitals Vital Signs Date Temp Pulse Resp B/P (MAP) Pulse Ox O2 O2 Flow FiO2 Time Delivery Rate 06/22/18 97.8 87 18 122/58 94 Room Air 14:15 (79) Intake and Output 06/21/18 06/21/18 06/22/18 1515:00 23:00 07:00 IntakeIntake Total 1000 ml 2200 ml OutputOutput Total 250 ml 350 ml BalanceBalance 1000 ml -250 ml 1850 ml Exam General: Patient is a pleasant female, currently lying in bed, mild distress secondary to nausea Neck: Supple Chest: Nontender Lungs: Clear to auscultation bilaterally no crackles rales or wheezing Heart: Normal S1-S2, Regular rate and rhythm. no murmurs Abdomen: Soft , mild tenderness, nondistended , bowel sounds are present. No guarding no rebound tenderness Extremities: Normal to inspection, no edema no cyanosis Results Results 24hrs Laboratory Tests Test 06/22/18 04:33 White Blood Count 5.4 Red Blood Count 3.95 L Hemoglobin 10.5 L Hematocrit 33.6 L Mean Corpuscular Volume 85.1 Mean Corpuscular Hemoglobin 26.6 L Mean Corpuscular Hemoglobin Concent 31.3 L Red Cell Distribution Width 20.5 H Platelet Count 285 Mean Platelet Volume 9.9 Immature Granulocytes % 0.600 H Neutrophils % 79.3 H Lymphocytes % 14.2 L Monocytes % 5.1 Eosinophils % 0.6 Basophils % 0.2 Nucleated Red Blood Cells % 0.0 Immature Granulocytes # 0.030 Neutrophils # 4.3 Lymphocytes # 0.8 Monocytes # 0.3 Eosinophils # 0.0 Basophils # 0.0 Nucleated Red Blood Cells # 0.0 Sodium Level 138 Potassium Level 5.3 H Chloride Level 103 Carbon Dioxide Level 24 # Anion Gap 11 Blood Urea Nitrogen 12 Creatinine 0.53 Est Glomerular Filtrat Rate mL/min > 60 Glucose Level 128 Calcium Level 8.9 Phosphorus Level 3.0 Magnesium Level 1.5 L Medications Medication Current Medications IV Flush (NS 3 ml) 3 ml PER PROTOCOL IV ; Start 06/10/18 at 18:00 Ondansetron HCl (Zofran Inj) 4 mg Q6H PRN IV NAUSEA/VOMITING Last administered on 06/22/18 05:38; Admin Dose 4 MG; Start 06/10/18 at 18:00 Lorazepam (Ativan) 1 mg Q4H PRN IV anxiety Last administered on 06/12/18 15:28; Admin Dose 1 MG; Start 06/11/18 at 21:30 IV Flush (NS 10 ml) 10 ml PRN PRN IV IV PROTOCOL; Start 06/16/18 at 17:00 Methylnaltrexone [place] (Relistor) 12 mg Q48H SC ; Start 06/17/18 at 08:30 Phenol (Chloraseptic Throat [place]) 2 spray Q2H PRN MT SORE THROAT Last administered on 06/17/18 21:23; Admin Dose 2 SPRAY; Start 06/17/18 at 11:30 Pantoprazole (Protonix Iv) 40 mg BID@06,18 IV Last administered on 06/22/18 05:33; Admin Dose 40 MG; Start 06/20/18 at 08:30 Morphine Sulfate (morphine) 2 mg Q4H PRN IV SEVERE PAIN LEVEL 7-10 Last administered on 06/22/18 14:46; Admin Dose 2 MG; Start 06/21/18 at 21:00 Metoclopramide HCl (Reglan) 10 mg Q6 IV Last administered on 06/22/18 11:52; Admin Dose 10 MG; Start 06/22/18 at 12:00 Dextrose/Sodium Chloride 1,000 ml @ 100 mls/hr Q10H IV Last administered on 06/22/18 12:00; Admin Dose 100 MLS/HR; Start 06/22/18 at 12:00 TOBI THOMAS MD Jun 22, 2018 16:12
[2018-06-22 19:55] VITALS: BP 127/60; PULSE 81; RESP 20
[2018-06-23] MEDS: DEXTROSE 5%-0.45% NACL 1,000 ML IV SCH ×4 (00:26→20:47)
[2018-06-23] MEDS: morphine 2 MG INJ IV PRN ×2 (00:30→19:45)
[2018-06-23 02:05] VITALS: BP 120/61; PULSE 87; RESP 20
[2018-06-23] MEDS: PANTOPRAZOLE 40 MG INJ IV SCH ×2 (05:34→17:25)
[2018-06-23] MEDS: METOCLOPRAMIDE 10 MG INJ IV SCH ×4 (05:36→17:26)
[2018-06-23] MEDS: METHYLNALTREXONE 12 MG/0.6 ML VIAL SC SCH (08:04)
[2018-06-23 08:07] VITALS: BP 151/73; PULSE 103; RESP 18
--- NOTE | 2018-06-23 08:59 | PN ---
Date/Time of Note Date/Time of Note DATE: 06/23/18 TIME: 08:58 Assessment/Plan VTE Prophylaxis Risk score (from Nsg)>0 risk: 4 SCD applied (from Nsg): Yes Pharmacological prophylaxis: other Lines/Catheters IV Catheter Type (from Nrsg): PICC Line Central line still needed: Yes Urinary Cath still in place: No Assessment/Plan Assessment/Plan 1. Severely ulcerated mucosa s/p EGD- stable - GI on board and appreciate recommendations. Unable to obtain biopsies due to air in gastric wall. Unable to enter into the duodenum 2. Partial obstructive gastric outlet - Surgery on board and appreciate recommendations. Will monitor PO intake and may need G tube if not tolerating well. doing better with clears this am - s/p placement of stent by GI - CT scan showing gastric thickening and emphysematous gastritis concerning for cancer vs necrosis with likely GOO, ovarian mass, possible abscess, etc. - Continue on reglan 3. Ovarian CA - Oncology on board and once stable, recommend neoadjuvant chemotherapy prior to any debulking surgery. - Patient's prior oncologist is Dr Mae at [facility]. 4. JAMAL - resolved 5. PUD - GI on board - PPI 6. Disposition - Continue monitoring in Med/Surg and advance diet as tolerated - once stable, will need initiation of chemotherapy per Oncology recommendations Result Diagram: 06/22/18 0433 06/22/18 0433 Subjective 24 Hr Interval Summary Free Text/Dictation Patient is feeling slightly better with decrease in nausea with vomiting. Tolerating more PO fluids this am while on Reglan. Exam/Review of Systems Exam Vitals Vital Signs Date Temp Pulse Resp B/P (MAP) Pulse Ox O2 O2 Flow FiO2 Time Delivery Rate 06/23/18 98.4 103 18 151/73 99 Room Air 08:07 (99) Intake and Output 06/22/18 06/22/18 06/23/18 1515:00 23:00 07:00 IntakeIntake Total 500 ml 350 ml 1200 ml OutputOutput Total 300 ml BalanceBalance 200 ml 350 ml 1200 ml Exam General: Patient is a pleasant female, currently lying in bed, no acute distress Neck: Supple Chest: Nontender Lungs: Clear to auscultation bilaterally no crackles rales or wheezing Heart: Normal S1-S2, Regular rate and rhythm. no murmurs Abdomen: Soft , mild tenderness, nondistended , bowel sounds are present. No guarding no rebound tenderness Extremities: Normal to inspection, no edema no cyanosis Medications Medication Current Medications IV Flush (NS 3 ml) 3 ml PER PROTOCOL IV ; Start 06/10/18 at 18:00 Ondansetron HCl (Zofran Inj) 4 mg Q6H PRN IV NAUSEA/VOMITING Last administered on 06/22/18 20:10; Admin Dose 4 MG; Start 06/10/18 at 18:00 Lorazepam (Ativan) 1 mg Q4H PRN IV anxiety Last administered on 06/12/18 15:28; Admin Dose 1 MG; Start 06/11/18 at 21:30 IV Flush (NS 10 ml) 10 ml PRN PRN IV IV PROTOCOL; Start 06/16/18 at 17:00 Methylnaltrexone [place] (Relistor) 12 mg Q48H SC ; Start 06/17/18 at 08:30 Phenol (Chloraseptic Throat [place]) 2 spray Q2H PRN MT SORE THROAT Last administered on 06/17/18 21:23; Admin Dose 2 SPRAY; Start 06/17/18 at 11:30 Pantoprazole (Protonix Iv) 40 mg BID@06,18 IV Last administered on 06/23/18 05:34; Admin Dose 40 MG; Start 06/20/18 at 08:30 Morphine Sulfate (morphine) 2 mg Q4H PRN IV SEVERE PAIN LEVEL 7-10 Last administered on 06/23/18 00:30; Admin Dose 2 MG; Start 06/21/18 at 21:00 Metoclopramide HCl (Reglan) 10 mg Q6 IV Last administered on 06/22/18 11:52; Admin Dose 10 MG; Start 06/22/18 at 12:00 Dextrose/Sodium Chloride 1,000 ml @ 100 mls/hr Q10H IV Last administered on 06/23/18 00:26; Admin Dose 100 MLS/HR; Start 06/22/18 at 12:00 TOBI THOMAS MD Jun 23, 2018 08:58
--- NOTE | 2018-06-23 10:17 | PN ---
Date/Time of Note Date/Time of Note DATE: 06/23/18 TIME: 10:09 Assessment/Plan Lines/Catheters IV Catheter Type (from [facility]): PICC Line Ramsey in Place (from [facility]): No Assessment/Plan Chief Complaint/Hosp Course 1. CT with emphysematous gastritis, portal venous air, thickening of pylorus and duodenal bulb, thick-walled gallbladder, mesenteric inflammation in the upper abdomen with free fluid. Repeat CT noted with improvement of emphysematous gastritis; EGD w stent placement 06/21/18 Nausea and vomiting improved, now able to tolerate some liquids -Close monitoring> if unable to tolerate liquid diet, can consider G-tube placement -Per gi>antiemetics/motility agents -Supportive measures -Ambulate 2. Acute hyperkalemia: -Med management 3. Anemia -Monitor 4. 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 Nausea and vomiting: Improved -as above Thank you. Patient seen and examined in collaboration with Dr. Ag Calle. Subjective 24 Hr Interval Summary Nausea and vomiting improved. Able to tolerate small amounts of liquid. No fevers, chills, sob, congested cough, cp, palpitations, cross, dizziness, diarrhea, dysuria. Exam/Review of Systems Vital Signs Vitals Vital Signs Date Temp Pulse Resp B/P (MAP) Pulse Ox O2 O2 Flow FiO2 Time Delivery Rate 06/23/18 98.4 103 18 151/73 99 Room Air 08:07 (99) Intake and Output 06/22/18 06/22/18 06/23/18 1515:00 23:00 07:00 IntakeIntake Total 500 ml 350 ml 1200 ml OutputOutput Total 300 ml BalanceBalance 200 ml 350 ml 1200 ml Exam Free Text/Dictation Constitutional: alert, oriented Psych: min anxiety Head: normocephalic, atraumatic Eyes: nl conjunctiva, EOMI, PERRL; No icteric ENMT: nl external ears & nose, nl lips & teeth, mucosa pink and moist Neck: supple, non-tender; No jvd Respiratory: normal air movement; No congested cough, No labored breathing, No wheezing Cardiovascular: regular rate and rhythm; No edema Gastrointestinal: soft, tender (Minimal epigastric), other (No rigidity); No distended, No rebound or guarding Musculoskeletal: nl extremities to inspection; No joint tenderness Extremities: normal pulses; No calf tenderness, No edema Neurological: nl mental status, nl speech, nl strength Skin: nl turgor; No rash or lesions, No diaphoresis Lymph: nl lymph nodes Results Result Diagram: 06/22/18 0433 06/22/18 0433 IVELISSE CEJA NP Jun 23, 2018 10:17
[2018-06-23 19:35] VITALS: BP 115/72; PULSE 79; RESP 20
[2018-06-23] MEDS: ONDANSETRON 4 MG INJ IV PRN (20:44)
[2018-06-24] MEDS: METOCLOPRAMIDE 10 MG INJ IV SCH ×4 (00:10→18:00)
[2018-06-24 02:05] VITALS: BP 124/58; PULSE 78; RESP 20
[2018-06-24] MEDS: PANTOPRAZOLE 40 MG INJ IV SCH ×2 (06:27→18:00)
--- NOTE | 2018-06-24 06:38 | PN ---
DATE: 06/23/2018 SUBJECTIVE: The patient at this time is comfortable. She vomited only 3 times today and yesterday. She had numerous times of vomiting. She had a metal stent placed across the malignant stricture of the antrum of the stomach and also first part of the duodenum. OBJECTIVE: GENERAL: She seems to be alert, is not in distress. VITAL SIGNS: Normal. 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 The patient is being followed by Dr. Vick from the oncology standpoint. The patient also was see n by Dr. Beasley from the oncological surgery standpoint. 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 She already is kno wn to have bilateral ovarian cancer in 03/2018 when she had surgery in [facility]. PLAN: According to the oncologist, she seems to be favoring in terms of treating her with chemothera py and then if necessary, she will have surgery in the future. Dictated By: KARMEN ARAGON MD NC/NTS Conf#: [id number] DID#: [id number] CC: TOBI THOMAS MD; DARVIN BOURNE MD; ELMER CAVAZOS MD;*EndCC*
[2018-06-24] MEDS: DEXTROSE 5%-0.45% NACL 1,000 ML IV SCH ×2 (07:42→18:52)
[2018-06-24 08:14] VITALS: BP 120/75; PULSE 83
--- NOTE | 2018-06-24 08:34 | CONS ---
Assessment/Plan Assessment/Plan Hospital Course (Demo Recall) unfortunate 47 yo with metastatic gastric ca. admitted with N/V/abdo pain. s/p EGD and metal stent placed across the malignant stricture of the antrum of the stomach and also first part of the duodenum. #gastric ca -biopsy from EGD and reports from outside facilities are c/w gastric ca signet ring features. unclear why pt thought it was ovarian ca, have call out to Dr Mcdonald's office as well -given metastatic disease will start chemo MARY for tumor debulking given how symptomatic she is. recommend initiation of FOLFOX, chemo orders written and sent to pharmacy I discussed chemo with pt including schedule which is every 2 weeks as an outpt after cycle 1. side effects include but not limited to nausea, fatigue, myelosuppression, infection, neuropathy, cold sensitivity, mucositis, she verbalized understanding and consented to start -will request her 2 testing to be added to path to see if she is a candidate for herceptin along with FOLFOX -needs mediport prior to discharge -Dr Suarez also informed me she has motility issues due to tumor infiltration of stomach and stent will not allow her to eat. will discuss with Dr Calle if maybe a j tube can help, she is still vomiting Thank you Dr Lee and Dr Landeros for allowing us to participate in the care of this pleasant pt Consultation Date/Type/Reason Admit Date/Time Jun 10, 2018 at 18:42 Initial Consult Date 06/11/18 Requesting Provider: ELMER LEE MD Date/Time of Note DATE: 06/24/18 TIME: 08:34 24 HR Interval Summary Free Text/Dictation Path c/w gastric ca: -- BerEP4: Positive, membranous -- CDX2: Positive, nuclear -- CK20: Focally positive. cytoplasmic -- CK7: Diffusely positive, cytoplasmic -- GATA3: Negative -- Pancytokeratin: Positive, cytoplasmic The immunohistochemical staining pattern supports primary gastric adenocarcinoma. FINAL MICROSCOPIC DIAGNOSIS: Antrum of stomach, biopsy: -- Adenocarcinoma, diffuse type with signet ring cells, involving lamina propria of gastric mucosa and lymphatics of small intestinal mucosa. -- Chronic gastritis, mild. -- No Helicobacter organisms are identified in a Giemsa stain. COMMENT: The preliminary diagnoses are discussed with Dr. Kendall Suarez and are Dr. Gm Varela on 06/22/2018 and the final diagnoses are discussed with both physicians on 06/23/2018. 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 [id number]; 06/07/2017). 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 This case also has been reviewed by Sarah Frey M.D., who concurs with the above interpretation. Constitutional: improved Exam/Review of Systems Exam Vitals Vital Signs Date Temp Pulse Resp B/P (MAP) Pulse Ox O2 O2 Flow FiO2 Time Delivery Rate 06/24/18 98.4 83 120/75 98 Room Air 08:14 (90) 06/24/18 20 02:05 Intake and Output 06/23/18 06/23/18 06/24/18 1515:00 23:00 07:00 IntakeIntake Total 1100 ml 1360 ml 800 ml OutputOutput Total 600 ml 800 ml 200 ml BalanceBalance 500 ml 560 ml 600 ml Constitutional: alert, oriented, frail Head: normocephalic, atraumatic Musculoskeletal: nl extremities to inspection, nl gait and stance Extremities: normal pulses Skin: nl turgor; No rash or lesions Results Result Diagram: 06/24/18 0457 06/24/18 0457 Results 24hrs Laboratory Tests Test 06/24/18 04:57 White Blood Count 5.4 Red Blood Count 3.78 L Hemoglobin 10.0 L Hematocrit 31.2 L Mean Corpuscular Volume 82.5 Mean Corpuscular Hemoglobin 26.5 L Mean Corpuscular Hemoglobin Concent 32.1 Red Cell Distribution Width 20.2 H Platelet Count 261 Mean Platelet Volume 9.8 Immature Granulocytes % 0.600 H Neutrophils % 62.9 Lymphocytes % 24.4 Monocytes % 9.7 Eosinophils % 2.0 Basophils % 0.4 Nucleated Red Blood Cells % 0.0 Immature Granulocytes # 0.030 Neutrophils # 3.4 Lymphocytes # 1.3 Monocytes # 0.5 Eosinophils # 0.1 Basophils # 0.0 Nucleated Red Blood Cells # 0.0 Sodium Level 135 Potassium Level 4.2 Chloride Level 102 Carbon Dioxide Level 22 Anion Gap 11 Blood Urea Nitrogen 15 Creatinine 0.51 Glucose Level 103 Calcium Level 8.6 Phosphorus Level 4.0 Magnesium Level 1.9 Albumin 2.8 L Medications Medication Current Medications IV Flush (NS 3 ml) 3 ml PER PROTOCOL IV ; Start 06/10/18 at 18:00 Ondansetron HCl (Zofran Inj) 4 mg Q6H PRN IV NAUSEA/VOMITING Last administered on 06/23/18 20:44; Admin Dose 4 MG; Start 06/10/18 at 18:00 Lorazepam (Ativan) 1 mg Q4H PRN IV anxiety Last administered on 06/12/18 15:28; Admin Dose 1 MG; Start 06/11/18 at 21:30 IV Flush (NS 10 ml) 10 ml PRN PRN IV IV PROTOCOL; Start 06/16/18 at 17:00 Methylnaltrexone [place] (Relistor) 12 mg Q48H SC ; Start 06/17/18 at 08:30 Phenol (Chloraseptic Throat [place]) 2 spray Q2H PRN MT SORE THROAT Last admin istered on 06/17/18 21:23; Admin Dose 2 SPRAY; Start 06/17/18 at 11:30 Pantoprazole (Protonix Iv) 40 mg BID@06,18 IV Last administered on 06/24/18 06:27; Admin Dose 40 MG; Start 06/20/18 at 08:30 Morphine Sulfate (morphine) 2 mg Q4H PRN IV SEVERE PAIN LEVEL 7-10 Last administered on 06/23/18 19:45; Admin Dose 2 MG; Start 06/21/18 at 21:00 Metoclopramide HCl (Reglan) 10 mg Q6 IV Last administered on 06/24/18 06:27; Admin Dose 10 MG; Start 06/22/18 at 12:00 Dextrose/Sodium Chloride 1,000 ml @ 100 mls/hr Q10H IV Last administered on 06/24/18 07:42; Admin Dose 100 MLS/HR; Start 06/22/18 at 12:00 NICK VARELA Jun 24, 2018 08:34
--- NOTE | 2018-06-24 11:17 | PN ---
Date/Time of Note Date/Time of Note DATE: 06/24/18 TIME: 11:16 Assessment/Plan Lines/Catheters IV Catheter Type (from [facility]): PICC Line Ramsey in Place (from [facility]): No Assessment/Plan Chief Complaint/Hosp Course 1. CT with emphysematous gastritis, portal venous air, thickening of pylorus and duodenal bulb, thick-walled gallbladder, mesenteric inflammation in the upper abdomen with free fluid. Repeat CT noted with improvement of emphysematous gastritis; EGD w stent placement 06/21/18 Nausea and vomiting reportedly with some foods, tolerating some liquids; spoke with patient regarding possible jtube. At this time she would like to continue trying oral liquids prior to deciding on jtube placement -Close monitoring> if unable to tolerate liquid diet, can consider J-tube placement -Per gi>antiemetics/motility agents -Supportive measures -Ambulate 2. Acute hyperkalemia: resolved 3. Anemia -Monitor 4. 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 Nausea and vomiting: Improved -as above Thank you. Patient seen and examined in collaboration with Dr. Ag Calle. Subjective 24 Hr Interval Summary Some nausea and vomiting (reportedly only with certain foods). No fevers, chills, sob, congested cough, cp, palpitations, cross, dizziness, d/dysuria. Exam/Review of Systems Vital Signs Vitals Vital Signs Date Temp Pulse Resp B/P (MAP) Pulse Ox O2 O2 Flow FiO2 Time Delivery Rate 06/24/18 98.4 83 120/75 98 Room Air 08:14 (90) 06/24/18 20 02:05 Intake and Output 06/23/18 06/23/18 06/24/18 1515:00 23:00 07:00 IntakeIntake Total 1100 ml 1360 ml 800 ml OutputOutput Total 600 ml 800 ml 200 ml BalanceBalance 500 ml 560 ml 600 ml Exam Free Text/Dictation Constitutional: alert, oriented Psych: min anxiety Head: normocephalic, atraumatic Eyes: nl conjunctiva, EOMI, PERRL; No icteric ENMT: nl external ears & nose, nl lips & teeth, mucosa pink and moist Neck: supple, non-tender; No jvd Respiratory: normal air movement; No congested cough, No labored breathing, No wheezing Cardiovascular: regular rate and rhythm; No edema Gastrointestinal: soft, tender (Minimal epigastric), other (No rigidity); No distended, No rebound or guarding Musculoskeletal: nl extremities to inspection; No joint tenderness Extremities: normal pulses; No calf tenderness, No edema Neurological: nl mental status, nl speech, nl strength Skin: nl turgor; No rash or lesions, No diaphoresis Lymph: nl lymph nodes Results Result Diagram: 06/24/18 0457 06/24/18 0457 IVELISSE CEJA NP Jun 24, 2018 11:16
--- NOTE | 2018-06-24 15:07 | PN ---
Date/Time of Note Date/Time of Note DATE: 06/24/18 TIME: 14:49 Assessment/Plan VTE Prophylaxis Risk score (from Nsg)>0 risk: 6 SCD applied (from Nsg): Yes Pharmacological prophylaxis: other Lines/Catheters IV Catheter Type (from Nrsg): PICC Line Central line still needed: Yes Urinary Cath still in place: No Assessment/Plan Assessment/Plan 1. Nausea with vomiting - most likely secondary to gastric outlet obstruction - may need Gtube if unable to tolerate diet which was discussed with patient - GI and Surgery on board and appreciate recommendations 2. Partial obstructive gastric outlet - Surgery on board and appreciate recommendations. - still with N/V on clears - s/p placement of stent by GI - CT scan showing gastric thickening and emphysematous gastritis concerning for cancer vs necrosis with likely GOO, ovarian mass, possible abscess, etc. - Continue on Reglan 3. Ovarian CA - Oncology on board and once stable, recommend neoadjuvant chemotherapy prior to any debulking surgery. - Patient's prior oncologist is Dr Mae at [facility]. 4. JAMAL - resolved 5. PUD - GI on board - PPI 6. Disposition - continue on clear liquid diet for now given persistent nausea and vomiting Result Diagram: 06/24/187 06/24/187 Results 24hrs Laboratory Tests Test 06/24/18 04:57 White Blood Count 5.4 Red Blood Count 3.78 L Hemoglobin 10.0 L Hematocrit 31.2 L Mean Corpuscular Volume 82.5 Mean Corpuscular Hemoglobin 26.5 L Mean Corpuscular Hemoglobin Concent 32.1 Red Cell Distribution Width 20.2 H Platelet Count 261 Mean Platelet Volume 9.8 Immature Granulocytes % 0.600 H Neutrophils % 62.9 Lymphocytes % 24.4 Monocytes % 9.7 Eosinophils % 2.0 Basophils % 0.4 Nucleated Red Blood Cells % 0.0 Immature Granulocytes # 0.030 Neutrophils # 3.4 Lymphocytes # 1.3 Monocytes # 0.5 Eosinophils # 0.1 Basophils # 0.0 Nucleated Red Blood Cells # 0.0 Sodium Level 135 Potassium Level 4.2 Chloride Level 102 Carbon Dioxide Level 22 Anion Gap 11 Blood Urea Nitrogen 15 Creatinine 0.51 Glucose Level 103 Calcium Level 8.6 Phosphorus Level 4.0 Magnesium Level 1.9 Albumin 2.8 L Subjective 24 Hr Interval Summary Free Text/Dictation Patient states shes feeling better but per nursing she has still been vomiting. Denies any acute new issues. Exam/Review of Systems Exam Vitals Vital Signs Date Temp Pulse Resp B/P (MAP) Pulse Ox O2 O2 Flow FiO2 Time Delivery Rate 06/24/18 98.4 83 120/75 98 Room Air 08:14 (90) 06/24/18 20 02:05 Intake and Output 06/23/18 06/23/18 06/24/18 1515:00 23:00 07:00 IntakeIntake Total 1100 ml 1360 ml 800 ml OutputOutput Total 600 ml 800 ml 200 ml BalanceBalance 500 ml 560 ml 600 ml Exam General: Patient is a pleasant female, currently lying in bed, no acute distress Neck: Supple Lungs: Clear to auscultation bilaterally no crackles rales or wheezing Heart: Normal S1-S2, Regular rate and rhythm. no murmurs Abdomen: Soft , nontender, nondistended , bowel sounds are present. No guarding no rebound tenderness Extremities: Normal to inspection, no edema no cyanosis Results Results 24hrs Laboratory Tests Test 06/24/18 04:57 White Blood Count 5.4 Red Blood Count 3.78 L Hemoglobin 10.0 L Hematocrit 31.2 L Mean Corpuscular Volume 82.5 Mean Corpuscular Hemoglobin 26.5 L Mean Corpuscular Hemoglobin Concent 32.1 Red Cell Distribution Width 20.2 H Platelet Count 261 Mean Platelet Volume 9.8 Immature Granulocytes % 0.600 H Neutrophils % 62.9 Lymphocytes % 24.4 Monocytes % 9.7 Eosinophils % 2.0 Basophils % 0.4 Nucleated Red Blood Cells % 0.0 Immature Granulocytes # 0.030 Neutrophils # 3.4 Lymphocytes # 1.3 Monocytes # 0.5 Eosinophils # 0.1 Basophils # 0.0 Nucleated Red Blood Cells # 0.0 Sodium Level 135 Potassium Level 4.2 Chloride Level 102 Carbon Dioxide Level 22 Anion Gap 11 Blood Urea Nitrogen 15 Creatinine 0.51 Glucose Level 103 Calcium Level 8.6 Phosphorus Level 4.0 Magnesium Level 1.9 Albumin 2.8 L Medications Medication Current Medications IV Flush (NS 3 ml) 3 ml PER PROTOCOL IV ; Start 06/10/18 at 18:00 Ondansetron HCl (Zofran Inj) 4 mg Q6H PRN IV NAUSEA/VOMITING Last administered on 06/23/18at 20:44; Admin Dose 4 MG; Start 06/10/18 at 18:00 Lorazepam (Ativan) 1 mg Q4H PRN IV anxiety Last administered on 06/12/18 15:28; Admin Dose 1 MG; Start 06/11/18 at 21:30 IV Flush (NS 10 ml) 10 ml PRN PRN IV IV PROTOCOL; Start 06/16/18 at 17:00 Methylnaltrexone [place] (Relistor) 12 mg Q48H SC ; Start 06/17/18 at 08:30 Phenol (Chloraseptic Throat [place]) 2 spray Q2H PRN MT SORE THROAT Last administered on 06/17/18 21:23; Admin Dose 2 SPRAY; Start 06/17/18 at 11:30 Pantoprazole (Protonix Iv) 40 mg BID@06,18 IV Last administered on 06/24/18at 0 6:27; Admin Dose 40 MG; Start 06/20/18 at 08:30 Morphine Sulfate (morphine) 2 mg Q4H PRN IV SEVERE PAIN LEVEL 7-10 Last administered on 06/23/18 19:45; Admin Dose 2 MG; Start 06/21/18 at 21:00 Metoclopramide HCl (Reglan) 10 mg Q6 IV Last administered on 06/24/18 12:07; Admin Dose 10 MG; Start 06/22/18 at 12:00 Dextrose/Sodium Chloride 1,000 ml @ 100 mls/hr Q10H IV Last administered on 06/24/18 07:42; Admin Dose 100 MLS/HR; Start 06/22/18 at 12:00 TOBI THOMAS MD Jun 24, 2018 15:07
[2018-06-24] MEDS: ONDANSETRON 4 MG INJ IV PRN (16:57)
[2018-06-24 20:15] VITALS: BP 129/63; PULSE 88; RESP 18
[2018-06-25 04:09] VITALS: BP 142/93; PULSE 89; RESP 18
[2018-06-25] MEDS: METOCLOPRAMIDE 10 MG INJ IV SCH ×4 (05:43→18:09)
[2018-06-25] MEDS: PANTOPRAZOLE 40 MG INJ IV SCH ×2 (05:43→18:09)
[2018-06-25] MEDS: DEXTROSE 5%-0.45% NACL 1,000 ML IV SCH ×2 (05:43→18:10)
[2018-06-25 08:26] VITALS: BP 133/72; PULSE 92; RESP 18
[2018-06-25] MEDS: METHYLNALTREXONE 12 MG/0.6 ML VIAL SC SCH (08:30)
[2018-06-25] MEDS: ONDANSETRON 4 MG INJ IV PRN (09:07)
--- NOTE | 2018-06-25 09:45 | PN ---
Date/Time of Note Date/Time of Note DATE: 06/25/18 TIME: 09:45 Assessment/Plan VTE Prophylaxis Risk score (from Nsg)>0 risk: 6 SCD applied (from Nsg): Yes Pharmacological prophylaxis: other Lines/Catheters IV Catheter Type (from Nrsg): PICC Line Central line still needed: Yes Urinary Cath still in place: No Assessment/Plan Assessment/Plan 1. Nausea with vomiting - Still with N/V and constipation may be contributing. She does admit to passing gas - also most likely secondary to gastric outlet obstruction - may need Jtube if unable to tolerate diet which was discussed with patient - GI and Surgery on board and appreciate recommendations 2. Partial obstructive gastric outlet - Surgery on board and appreciate recommendations. continue monitoring ability for PO intake and if not tolerating may need J tube placement - s/p placement of stent by GI - CT scan showing gastric thickening and emphysematous gastritis concerning for cancer vs necrosis with likely GOO, ovarian mass, possible abscess, etc. 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 Plans to start chemotherapy when available - Patient's prior oncologist is Dr Mae at [facility]. 4. JAMAL - resolved 5. PUD - GI on board - PPI 6. Constipation - bowel regime 7. Disposition - Plans to initiate chemo when available - bowel regime for constipation - will need to plan for mediport prior to discharge - monitor PO intake to determine need for Jtube placement Result Diagram: 06/25/183 06/25/18 0443 Results 24hrs Laboratory Tests Test 06/25/18 04:43 White Blood Count 5.4 Red Blood Count 3.81 L Hemoglobin 10.1 L Hematocrit 30.7 L Mean Corpuscular Volume 80.6 L Mean Corpuscular Hemoglobin 26.5 L Mean Corpuscular Hemoglobin Concent 32.9 Red Cell Distribution Width 20.0 H Platelet Count 281 Mean Platelet Volume 9.7 Immature Granulocytes % 0.400 Neutrophils % 64.1 Lymphocytes % 24.3 Monocytes % 9.1 Eosinophils % 1.7 Basophils % 0.4 Nucleated Red Blood Cells % 0.0 Immature Granulocytes # 0.020 Neutrophils # 3.5 Lymphocytes # 1.3 Monocytes # 0.5 Eosinophils # 0.1 Basophils # 0.0 Nucleated Red Blood Cells # 0.0 Sodium Level 137 Potassium Level 3.4 L Chloride Level 107 Carbon Dioxide Level 22 Anion Gap 8 Blood Urea Nitrogen 15 Creatinine 0.55 Glucose Level 115 Calcium Level 8.9 Phosphorus Level 4.0 Magnesium Level 1.9 Albumin 3.0 L Subjective 24 Hr Interval Summary Free Text/Dictation Patient still with nausea and vomiting this am. Has not had a BM and discussed may be contributing to her N/V. Exam/Review of Systems Exam Vitals Vital Signs Date Temp Pulse Resp B/P (MAP) Pulse Ox O2 O2 Flow FiO2 Time Delivery Rate 06/25/18 98.0 92 18 133/72 96 Room Air 08:26 (92) Intake and Output 06/24/18 06/24/18 06/25/18 1515:00 23:00 07:00 IntakeIntake Total 560 ml 1480 ml OutputOutput Total 450 ml 600 ml 800 ml BalanceBalance 110 ml 880 ml -800 ml Exam General: Patient is a pleasant female, currently lying in bed, no acute distress Neck: Supple Lungs: Clear to auscultation bilaterally no crackles rales or wheezing Heart: Normal S1-S2, Regular rate and rhythm. no murmurs Abdomen: Soft , nontender, nondistended , bowel sounds are present. No guarding no rebound tenderness Extremities: Normal to inspection, no edema no cyanosis Results Results 24hrs Laboratory Tests Test 06/25/18 04:43 White Blood Count 5.4 Red Blood Count 3.81 L Hemoglobin 10.1 L Hematocrit 30.7 L Mean Corpuscular Volume 80.6 L Mean Corpuscular Hemoglobin 26.5 L Mean Corpuscular Hemoglobin Concent 32.9 Red Cell Distribution Width 20.0 H Platelet Count 281 Mean Platelet Volume 9.7 Immature Granulocytes % 0.400 Neutrophils % 64.1 Lymphocytes % 24.3 Monocytes % 9.1 Eosinophils % 1.7 Basophils % 0.4 Nucleated Red Blood Cells % 0.0 Immature Granulocytes # 0.020 Neutrophils # 3.5 Lymphocytes # 1.3 Monocytes # 0.5 Eosinophils # 0.1 Basophils # 0.0 Nucleated Red Blood Cells # 0.0 Sodium Level 137 Potassium Level 3.4 L Chloride Level 107 Carbon Dioxide Level 22 Anion Gap 8 Blood Urea Nitrogen 15 Creatinine 0.55 Glucose Level 115 Calcium Level 8.9 Phosphorus Level 4.0 Magnesium Level 1.9 Albumin 3.0 L Medications Medication Current Medications IV Flush (NS 3 ml) 3 ml PER PROTOCOL IV ; Start 06/10/18 at 18:00 Ondansetron HCl (Zofran Inj) 4 mg Q6H PRN IV NAUSEA/VOMITING Last administered on 06/25/18 09:07; Admin Dose 4 MG; Start 06/10/18 at 18:00 Lorazepam (Ativan) 1 mg Q4H PRN IV anxiety Last administered on 06/12/18 15:28; Admin Dose 1 MG; Start 06/11/18 at 21:30 IV Flush (NS 10 ml) 10 ml PRN PRN IV IV PROTOCOL; Start 06/16/18 at 17:00 Methylnaltrexone [place] (Relistor) 12 mg Q48H SC ; Start 06/17/18 at 08:30 Phenol (Chloraseptic Throat [place]) 2 spray Q2H PRN MT SORE THROAT Last administered on 06/17/18 21:23; Admin Dose 2 SPRAY; Start 06/17/18 at 11:30 Pantoprazole (Protonix Iv) 40 mg BID@06,18 IV Last administered on 06/25/18 05:43; Admin Dose 40 MG; Start 06/20/18 at 08:30 Morphine Sulfate (morphine) 2 mg Q4H PRN IV SEVERE PAIN LEVEL 7-10 Last administered on 06/23/18 19:45; Admin Dose 2 MG; Start 06/21/18 at 21:00 Metoclopramide HCl (Reglan) 10 mg Q6 IV Last administered on 06/25/18 05:43; Admin Dose 10 MG; Start 06/22/18 at 12:00 Dextrose/Sodium Chloride 1,000 ml @ 100 mls/hr Q10H IV Last administered on 06/25/18 05:43; Admin Dose 100 MLS/HR; Start 06/22/18 at 12:00 TOBI THOMAS MD Jun 25, 2018 09:45
[2018-06-25] MEDS: POTASSIUM CHLORIDE 100 ML IVPB SCH ×2 (11:05→12:22)
--- NOTE | 2018-06-25 11:48 | CONS ---
Assessment/Plan Assessment/Plan Assessment/Plan (Daily) unfortunate 47 yo with metastatic gastric ca. admitted with N/V/abdo pain. s/p EGD and metal stent placed across the malignant stricture of the antrum of the stomach and also first part of the duodenum. #gastric ca -biopsy from EGD and reports from outside facilities are c/w gastric ca signet ring features. unclear why pt thought it was ovarian ca, have call out to Dr Mcdonald's office as well -given metastatic disease will start chemo MARY for tumor debulking given how symptomatic she is. Recommended initiation of FOLFOX, chemo orders written and sent to pharmacy; pending insurance approval today. Dr Vick has discussed chemo with pt including schedule which is every 2 weeks as an outpt after cycle 1. side effects include but not limited to nausea, fatigue, myelosuppression, infection, neuropathy, cold sensitivity, mucositis, she verbalized understanding and consented to start -will request her 2 testing to be added to path to see if she is a candidate for herceptin along with FOLFOX -needs mediport prior to discharge - Per Dr Suarez she has motility issues due to tumor infiltration of stomach and stent will not be able to eat. Plan to discuss with Dr Calle if maybe a j tube can help, she is still vomiting. # Anemia- Hgb 10.1 today # Acute Hypokalemia- replace per PMD Patient seen in collaboration with Dr Gillette covering for Dr Vick today Consultation Date/Type/Reason Admit Date/Time Jun 10, 2018 at 18:42 Initial Consult Date 06/11/18 Type of Consult ONCOLOGY Reason for Consultation metastatic gastric ca Requesting Provider: ELMER CAVAZOS MD Date/Time of Note DATE: 06/25/18 TIME: 11:41 24 HR Interval Summary Free Text/Dictation -Feeling better now; nausea/ vomitting is less today - still not able to eat - no new events reported last night - chemo ordered; pending insurance approval dw staff Constitutional: requiring IVF Detailed Summary Eyes: no complaints ENT: no complaints Respiratory: no complaints Cardiovascular: no complaints Gastrointestinal: nausea Genitourinary: no complaints Musculoskeletal: no complaints Skin: no complaints Neurologic: no complaints Endocrine: no complaints Lymphatic: no complaints Psychological: no complaints Exam/Review of Systems Exam Vitals Vital Signs Date Temp Pulse Resp B/P (MAP) Pulse Ox O2 O2 Flow FiO2 Time Delivery Rate 2/23/19 98.0 92 18 133/72 96 Room Air 08:26 (92) Intake and Output 06/24/18 06/24/18 06/25/18 1414:59 22:59 06:59 IntakeIntake Total 560 ml 1480 ml OutputOutput Total 200 ml 850 ml 800 ml BalanceBalance 360 ml 630 ml -800 ml Constitutional: alert, well developed Psych: nl mood/affect Head: normocephalic Eyes: EOMI, nl lids, nl sclera ENMT: nl external ears & nose Neck: non-tender Respiratory: diminished breath sounds (bilaterally) Cardiovascular: nl pulses, other (s1s2) Gastrointestinal: soft Musculoskeletal: nl extremities to inspection Extremities: normal pulses Neurological: nl speech Skin: nl turgor Lymph: nontender Results Result Diagram: 06/25/1844206/25/183 Results 24hrs Laboratory Tests Test 06/25/18 04:43 White Blood Count 5.4 Red Blood Count 3.81 L Hemoglobin 10.1 L Hematocrit 30.7 L Mean Corpuscular Volume 80.6 L Mean Corpuscular Hemoglobin 26.5 L Mean Corpuscular Hemoglobin Concent 32.9 Red Cell Distribution Width 20.0 H Platelet Count 281 Mean Platelet Volume 9.7 Immature Granulocytes % 0.400 Neutrophils % 64.1 Lymphocytes % 24.3 Monocytes % 9.1 Eosinophils % 1.7 Basophils % 0.4 Nucleated Red Blood Cells % 0.0 Immature Granulocytes # 0.020 Neutrophils # 3.5 Lymphocytes # 1.3 Monocytes # 0.5 Eosinophils # 0.1 Basophils # 0.0 Nucleated Red Blood Cells # 0.0 Sodium Level 137 Potassium Level 3.4 L Chloride Level 107 Carbon Dioxide Level 22 Anion Gap 8 Blood Urea Nitrogen 15 Creatinine 0.55 Glucose Level 115 Calcium Level 8.9 Phosphorus Level 4.0 Magnesium Level 1.9 Albumin 3.0 L Imaging Imaging Path c/w gastric ca: -- BerEP4: Positive, membranous -- CDX2: Positive, nuclear -- CK20: Focally positive. cytoplasmic -- CK7: Diffusely positive, cytoplasmic -- GATA3: Negative -- Pancytokeratin: Positive, cytoplasmic The immunohistochemical staining pattern supports primary gastric adenocarcinoma. FINAL MICROSCOPIC DIAGNOSIS: Antrum of stomach, biopsy: -- Adenocarcinoma, diffuse type with signet ring cells, involving lamina propria of gastric mucosa and lymphatics of small intestinal mucosa. -- Chronic gastritis, mild. -- No Helicobacter organisms are identified in a Giemsa stain. COMMENT: The preliminary diagnoses are discussed with Dr. Kendall Suarez and are Dr. Gm Vick on 06/22/2018 and the final diagnoses are discussed with both physicians on 06/23/2018. 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 [id number]; 06/07/2017). 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 This case also has been reviewed by Sarah Frey M.D., who concurs with the above interpretation. Medications Medication Current Medications IV Flush (NS 3 ml) 3 ml PER PROTOCOL IV ; Start 06/10/18 at 18:00 Ondansetron HCl (Zofran Inj) 4 mg Q6H PRN IV NAUSEA/VOMITING Last administered on 06/25/18at 09:07; Admin Dose 4 MG; Start 06/10/18 at 18:00 Lorazepam (Ativan) 1 mg Q4H PRN IV anxiety Last administered on 06/12/18at 15:28; Admin Dose 1 MG; Start 06/11/18 at 21:30 IV Flush (NS 10 ml) 10 ml PRN PRN IV IV PROTOCOL; Start 06/16/18 at 17:00 Methylnaltrexone [place] (Relistor) 12 mg Q48H SC ; Start 06/17/18 at 08:30 Phenol (Chloraseptic Throat [place]) 2 spray Q2H PRN MT SORE THROAT Last administered on 06/17/18 21:23; Admin Dose 2 SPRAY; Start 06/17/18 at 11:30 Pantoprazole (Protonix Iv) 40 mg BID@06,18 IV Last administered on 06/25/18at 05:43; Admin Dose 40 MG; Start 06/20/18 at 08:30 Morphine Sulfate (morphine) 2 mg Q4H PRN IV SEVERE PAIN LEVEL 7-10 Last ad ministered on 06/23/18at 19:45; Admin Dose 2 MG; Start 06/21/18 at 21:00 Metoclopramide HCl (Reglan) 10 mg Q6 IV Last administered on 06/25/18at 05:43; Admin Dose 10 MG; Start 06/22/18 at 12:00 Dextrose/Sodium Chloride 1,000 ml @ 100 mls/hr Q10H IV Last administered on 06/25/18at 05:43; Admin Dose 100 MLS/HR; Start 06/22/18 at 12:00 Potassium Chloride 100 ml @ 50 mls/hr Q2H IVPB Last administered on 06/25/18at 11:05; Admin Dose 50 MLS/HR; Start 06/25/18 at 10:00; Stop 06/25/18 at 13:59 Bisacodyl (Dulcolax Supp) 10 mg DAILY PRN MT CONSTIPATION; Start 06/25/18 at 12:00 RAFA HEAD Jun 25, 2018 11:48
[2018-06-25] MEDS: BISACODYL 10 MG SUPP PR PRN (12:22)
[2018-06-25 14:38] VITALS: BP 130/70; PULSE 87; RESP 18
--- NOTE | 2018-06-25 17:53 | PN ---
Date/Time of Note Date/Time of Note DATE: 06/25/18 TIME: 17:51 Assessment/Plan Lines/Catheters IV Catheter Type (from [facility]): PICC Line Ramsey in Place (from [facility]): No Assessment/Plan Chief Complaint/Hosp Course 1. CT with emphysematous gastritis, portal venous air, thickening of pylorus and duodenal bulb, thick-walled gallbladder, mesenteric inflammation in the upper abdomen with free fluid. Repeat CT noted with improvement of emphysematous gastritis; EGD w stent placement 06/21/18 Nausea and vomiting improved, tolerating some liquids; At this time she would like to continue with oral nutrition rather than jtube placement -Close monitoring> if unable to tolerate liquid diet, can consider J-tube placement -Per gi>antiemetics/motility agents -Supportive measures -Ambulate 2. Acute hyperkalemia: resolved 3. Anemia -Monitor 4. 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 Nausea and vomiting: Improved -as above 6. Constipation: Improved -Optimize bowel regimen as able Thank you. Patient seen and examined in collaboration with Dr. Ag Calle. Subjective 24 Hr Interval Summary Nausea and vomiting last today. Feels better. + Bowel function. No fevers, chills, sob, congested cough, cp, palpitations, cross, dizziness, diarrhea, dysuria. Exam/Review of Systems Vital Signs Vitals Vital Signs Date Temp Pulse Resp B/P (MAP) Pulse Ox O2 O2 Flow FiO2 Time Delivery Rate 06/25/18 97.6 87 18 130/70 97 14:38 (90) 06/25/18 Room Air 08:26 Intake and Output 06/24/18 06/24/18 06/25/18 1515:00 23:00 07:00 IntakeIntake Total 560 ml 1480 ml OutputOutput Total 450 ml 600 ml 800 ml BalanceBalance 110 ml 880 ml -800 ml Exam Free Text/Dictation Constitutional: alert, oriented Psych: min anxiety Head: normocephalic, atraumatic Eyes: nl conjunctiva, EOMI, PERRL; No icteric ENMT: nl external ears & nose, nl lips & teeth, mucosa pink and moist Neck: supple, non-tender; No jvd Respiratory: normal air movement; No congested cough, No labored breathing, No wheezing Cardiovascular: regular rate and rhythm; No edema Gastrointestinal: soft, tender (Minimal epigastric), other (No rigidity); No distended, No rebound or guarding Musculoskeletal: nl extremities to inspection; No joint tenderness Extremities: normal pulses; No calf tenderness, No edema Neurological: nl mental status, nl speech, nl strength Skin: nl turgor; No rash or lesions, No diaphoresis Lymph: nl lymph nodes Results Result Diagram: 06/25/18 0443 06/25/18 0443 IVELISSE CEJA NP Jun 25, 2018 17:53
[2018-06-25 20:00] VITALS: BP 129/77; PULSE 99; RESP 20
[2018-06-26] MEDS: METOCLOPRAMIDE 10 MG INJ IV SCH ×4 (00:02→21:33)
[2018-06-26 01:54] VITALS: BP 118/88; PULSE 89; RESP 20
[2018-06-26] MEDS: DEXTROSE 5%-0.45% NACL 1,000 ML IV SCH ×2 (02:49→13:16)
[2018-06-26] MEDS: PANTOPRAZOLE 40 MG INJ IV SCH ×2 (05:45→21:33)
[2018-06-26 07:31] VITALS: BP 142/65; PULSE 94; RESP 15
--- NOTE | 2018-06-26 08:47 | PN ---
Date/Time of Note Date/Time of Note DATE: 06/26/18 TIME: 08:46 Assessment/Plan VTE Prophylaxis Risk score (from Nsg)>0 risk: 5 SCD applied (from Ns): No SCD contraindicated: patient refusal Pharmacological prophylaxis: other Lines/Catheters IV Catheter Type (from Nrsg): PICC Line Central line still needed: Yes Urinary Cath still in place: No Assessment/Plan Assessment/Plan 1. Nausea with vomiting - Persists - Would like Jtube after initiation of chemo if she still cannot tolerate PO intake - Will consult dietary for TPN recommendations - also most likely secondary to gastric outlet obstruction - GI and Surgery on board and appreciate recommendations 2. Partial obstructive gastric outlet - Surgery on board and appreciate recommendations. still with N/V but would like to hold off on Jtube for now - s/p placement of stent by GI - CT scan showing gastric thickening and emphysematous gastritis concerning for cancer vs necrosis with likely GOO, ovarian mass, possible abscess, etc. 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 Plans to start chemotherapy when available - Patient's prior oncologist is Dr Mae at [facility]. 4. JAMAL - resolved 5. PUD - GI on board - PPI 6. Constipation - bowel regime 7. Disposition - Awaiting insurance approval for chemotherapy - Dietary consultation placed for TPN recommendations since patient wants to hold off on Jtube placement and still not tolerating PO intake Result Diagram: 06/26/18 0433 06/26/18 0433 Results 24hrs Laboratory Tests Test 06/26/18 04:33 White Blood Count 5.7 Red Blood Count 3.66 L Hemoglobin 9.9 L Hematocrit 29.5 L Mean Corpuscular Volume 80.6 L Mean Corpuscular Hemoglobin 27.0 L Mean Corpuscular Hemoglobin Concent 33.6 Red Cell Distribution Width 19.9 H Platelet Count 274 Mean Platelet Volume 10.0 Immature Granulocytes % 0.200 Neutrophils % 67.7 Lymphocytes % 20.0 Monocytes % 10.0 Eosinophils % 1.6 Basophils % 0.5 Nucleated Red Blood Cells % 0.0 Immature Granulocytes # 0.010 Neutrophils # 3.9 Lymphocytes # 1.1 Monocytes # 0.6 Eosinophils # 0.1 Basophils # 0.0 Nucleated Red Blood Cells # 0.0 Sodium Level 137 Potassium Level 3.7 Chloride Level 107 Carbon Dioxide Level 21 Anion Gap 9 Blood Urea Nitrogen 16 Creatinine 0.56 Glucose Level 121 Calcium Level 9.0 Phosphorus Level 3.8 Magnesium Level 1.9 Albumin 3.0 L Subjective 24 Hr Interval Summary Free Text/Dictation Patient still with persistent nausea and vomiting. Would like to hold off on Jtube until after chemo started. Requesting TPN if possible in the meantime. Exam/Review of Systems Exam Vitals Vital Signs Date Temp Pulse Resp B/P (MAP) Pulse Ox O2 O2 Flow FiO2 Time Delivery Rate 06/26/18 97.4 94 15 142/65 100 Room Air 07:31 (90) Intake and Output 06/25/18 06/25/18 06/26/18 1515:00 23:00 07:00 IntakeIntake Total 400 ml 1360 ml 1370 ml OutputOutput Total 400 ml 100 ml BalanceBalance 0 ml 1360 ml 1270 ml Exam General: Patient is a pleasant female, currently lying in bed, no acute distress Neck: Supple Lungs: Clear to auscultation bilaterally no crackles rales or wheezing Heart: Normal S1-S2, Regular rate and rhythm. no murmurs Abdomen: Soft , nontender, nondistended , bowel sounds are present. No guarding no rebound tenderness Extremities: Normal to inspection, no edema no cyanosis Results Results 24hrs Laboratory Tests Test 06/26/18 04:33 White Blood Count 5.7 Red Blood Count 3.66 L Hemoglobin 9.9 L Hematocrit 29.5 L Mean Corpuscular Volume 80.6 L Mean Corpuscular Hemoglobin 27.0 L Mean Corpuscular Hemoglobin Concent 33.6 Red Cell Distribution Width 19.9 H Platelet Count 274 Mean Platelet Volume 10.0 Immature Granulocytes % 0.200 Neutrophils % 67.7 Lymphocytes % 20.0 Monocytes % 10.0 Eosinophils % 1.6 Basophils % 0.5 Nucleated Red Blood Cells % 0.0 Immature Granulocytes # 0.010 Neutrophils # 3.9 Lymphocytes # 1.1 Monocytes # 0.6 Eosinophils # 0.1 Basophils # 0.0 Nucleated Red Blood Cells # 0.0 Sodium Level 137 Potassium Level 3.7 Chloride Level 107 Carbon Dioxide Level 21 Anion Gap 9 Blood Urea Nitrogen 16 Creatinine 0.56 Glucose Level 121 Calcium Level 9.0 Phosphorus Level 3.8 Magnesium Level 1.9 Albumin 3.0 L Medications Medication Current Medications IV Flush (NS 3 ml) 3 ml PER PROTOCOL IV ; Start 06/10/18 at 18:00 Ondansetron HCl (Zofran Inj) 4 mg Q6H PRN IV NAUSEA/VOMITING Last administered on 06/25/18 09:07; Admin Dose 4 MG; Start 06/10/18 at 18:00 Lorazepam (Ativan) 1 mg Q4H PRN IV anxiety Last administered on 06/12/18 15:28; Admin Dose 1 MG; Start 06/11/18 at 21:30 IV Flush (NS 10 ml) 10 ml PRN PRN IV IV PROTOCOL; Start 06/16/18 at 17:00 Methylnaltrexone [place] (Relistor) 12 mg Q48H SC ; Start 06/17/18 at 08:30 Phenol (Chloraseptic Throat [place]) 2 spray Q2H PRN [place] SORE THROAT Last administered on 06/17/18 21:23; Admin Dose 2 SPRAY; Start 06/17/18 at 11:30 Pantoprazole (Protonix Iv) 40 mg BID@06,18 IV Last administered on 06/26/18 05:45; Admin Dose 40 MG; Start 06/20/18 at 08:30 Morphine Sulfate (morphine) 2 mg Q4H PRN IV SEVERE PAIN LEVEL 7-10 Last administered on 06/23/18 19:45; Admin Dose 2 MG; Start 06/21/18 at 21:00 Metoclopramide HCl (Reglan) 10 mg Q6 IV Last administered on 06/26/18 05:45; Admin Dose 10 MG; Start 06/22/18 at 12:00 Dextrose/Sodium Chloride 1,000 ml @ 100 mls/hr Q10H IV Last administered on 06/26/18 02:49; Admin Dose 100 MLS/HR; Start 06/22/18 at 12:00 Bisacodyl (Dulcolax Supp) 10 mg DAILY PRN [place] CONSTIPATION Last administered on 06/25/18 12:22; Admin Dose 10 MG; Start 06/25/18 at 12:00 TOBI THOMAS MD Jun 26, 2018 08:46
--- NOTE | 2018-06-26 10:31 | PN ---
Date/Time of Note Date/Time of Note DATE: 06/26/18 TIME: 10:28 Assessment/Plan Lines/Catheters IV Catheter Type (from [facility]): PICC Line Ramsey in Place (from [facility]): No Assessment/Plan Chief Complaint/Hosp Course 1. CT with emphysematous gastritis, portal venous air, thickening of pylorus and duodenal bulb, thick-walled gallbladder, mesenteric inflammation in the upper abdomen with free fluid. Repeat CT noted with improvement of emphysematous gastritis; EGD w stent placement 06/21/18 Nausea and vomiting persistent; Re-visited idea of j-tube placement, at this time she is undecided, requesting more time to consider jtube. -Obtain operative Records -Close monitoring> if unable to tolerate liquid diet, can consider J-tube placement -Per gi>antiemetics/motility agents -Supportive measures -Ambulate 2. Acute hyperkalemia: resolved 3. Anemia -Monitor 4. 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 Nausea and vomiting: Improved -as above 6. Constipation: Improved -Optimize bowel regimen as able Thank you. Patient seen and examined in collaboration with Dr. Ag Calle. Subjective 24 Hr Interval Summary Continues to have vomiting episodes but feels well otherwise. No fevers, chills, sob, congested cough, cp, palpitations, cross, dizziness, n/v/d/dysuria. Exam/Review of Systems Vital Signs Vitals Vital Signs Date Temp Pulse Resp B/P (MAP) Pulse Ox O2 O2 Flow FiO2 Time Delivery Rate 06/26/18 97.4 94 15 142/65 100 Room Air 07:31 (90) Intake and Output 06/25/18 06/25/18 06/26/18 1515:00 23:00 07:00 IntakeIntake Total 400 ml 1360 ml 1370 ml OutputOutput Total 400 ml 100 ml BalanceBalance 0 ml 1360 ml 1270 ml Exam Free Text/Dictation Constitutional: alert, oriented Psych: min anxiety Head: normocephalic, atraumatic Eyes: nl conjunctiva, EOMI, PERRL; No icteric ENMT: nl external ears & nose, nl lips & teeth, mucosa pink and moist Neck: supple, non-tender; No jvd Respiratory: normal air movement; No congested cough, No labored breathing, No wheezing Cardiovascular: regular rate and rhythm; No edema Gastrointestinal: soft, tender (Minimal epigastric), other (No rigidity); No distended, No rebound or guarding Musculoskeletal: nl extremities to inspection; No joint tenderness Extremities: normal pulses; No calf tenderness, No edema Neurological: nl mental status, nl speech, nl strength Skin: nl turgor; No rash or lesions, No diaphoresis Lymph: nl lymph nodes Results Result Diagram: 06/26/18 0433 06/26/18 0433 IVELISSE CEJA NP Jun 26, 2018 10:31
[2018-06-26 14:17] VITALS: BP 125/70; PULSE 45; RESP 15
--- NOTE | 2018-06-26 14:28 | CONS ---
Assessment/Plan Assessment/Plan Assessment/Plan (Daily) unfortunate 47 yo with metastatic gastric ca. admitted with N/V/abdo pain. s/p EGD and metal stent placed across the malignant stricture of the antrum of the stomach and also first part of the duodenum. #gastric ca -biopsy from EGD and reports from outside facilities are c/w gastric ca signet ring features. unclear why pt thought it was ovarian ca, have call out to Dr Mcdonald's office as well . Dr Vick has discussed chemo with pt including schedule which is every 2 weeks as an outpt after cycle 1. side effects include but not limited to nausea, fatigue, -given metastatic disease will start chemo MARY for tumor debulking given how symptomatic she is. Recommended initiation of FOLFOX, chemo orders written and sent to pharmacy; pending insurance approval myelosuppression, infection, neuropathy, cold sensitivity, mucositis, she verbalized understanding and consented to start - will request her 2 testing to be added to path to see if she is a candidate for herceptin along with FOLFOX -needs mediport prior to discharge - Per Dr Suarez she has motility issues due to tumor infiltration of stomach and stent will not be able to eat. Plan to discuss with Dr Calle if maybe a j tube can help, she is still vomiting. - Surgery follows-? feeding tube placement - Plan for TPN infusion per PMD; bakery clerk to see the patient. # Anemia- Hgb 9.9 today - monitor CBC # Acute Hypokalemia- replace per PMD Patient seen in collaboration with Dr Gillette covering for Dr Vick today Consultation Date/Type/Reason Admit Date/Time Jun 10, 2018 at 18:42 Initial Consult Date 06/11/18 Type of Consult ONCOLOGY Reason for Consultation Gastric Cancer Requesting Provider: ELMER CAVAZOS MD Date/Time of Note DATE: 06/26/18 TIME: 14:25 24 HR Interval Summary Free Text/Dictation - c/o nausea - Surgery follows-? feeding tube placement chemo orders written and sent to pharmacy; pending insurance approval today. -Plan for TPN infusion per PMD; bakery clerk to see the patient. no new issues reported overnight Constitutional: requiring IVF Detailed Summary Eyes: no complaints ENT: no complaints Respiratory: no complaints Cardiovascular: no complaints Gastrointestinal: nausea, vomiting Genitourinary: no complaints Musculoskeletal: no complaints Skin: no complaints Neurologic: no complaints Endocrine: no complaints Lymphatic: no complaints Psychological: no complaints, nl mood/affect Immunologic: no complaints Exam/Review of Systems Exam Vitals Vital Signs Date Temp Pulse Resp B/P (MAP) Pulse Ox O2 O2 Flow FiO2 Time Delivery Rate 06/26/18 97.5 45 15 125/70 100 Room Air 14:17 (88) Intake and Output 06/25/18 06/25/18 06/26/18 1515:00 23:00 07:00 IntakeIntake Total 400 ml 1360 ml 1370 ml OutputOutput Total 400 ml 100 ml BalanceBalance 0 ml 1360 ml 1270 ml Constitutional: alert, well developed, frail Psych: nl mood/affect Head: atraumatic Eyes: EOMI, nl lids, nl sclera ENMT: nl external ears & nose Neck: non-tender Cardiovascular: nl pulses, other (s1s2) Gastrointestinal: soft, tender Musculoskeletal: nl extremities to inspection, muscle weakness Extremities: normal pulses Neurological: nl mental status, nl speech Skin: nl turgor Lymph: nontender Results Result Diagram: 06/26/18 0433 06/26/18 0433 Results 24hrs Laboratory Tests Test 06/26/18 04:33 White Blood Count 5.7 Red Blood Count 3.66 L Hemoglobin 9.9 L Hematocrit 29.5 L Mean Corpuscular Volume 80.6 L Mean Corpuscular Hemoglobin 27.0 L Mean Corpuscular Hemoglobin Concent 33.6 Red Cell Distribution Width 19.9 H Platelet Count 274 Mean Platelet Volume 10.0 Immature Granulocytes % 0.200 Neutrophils % 67.7 Lymphocytes % 20.0 Monocytes % 10.0 Eosinophils % 1.6 Basophils % 0.5 Nucleated Red Blood Cells % 0.0 Immature Granulocytes # 0.010 Neutrophils # 3.9 Lymphocytes # 1.1 Monocytes # 0.6 Eosinophils # 0.1 Basophils # 0.0 Nucleated Red Blood Cells # 0.0 Sodium Level 137 Potassium Level 3.7 Chloride Level 107 Carbon Dioxide Level 21 Anion Gap 9 Blood Urea Nitrogen 16 Creatinine 0.56 Glucose Level 121 Calcium Level 9.0 Phosphorus Level 3.8 Magnesium Level 1.9 Albumin 3.0 L Medications Medication Current Medications IV Flush (NS 3 ml) 3 ml PER PROTOCOL IV ; Start 06/10/18 at 18:00 Ondansetron HCl (Zofran Inj) 4 mg Q6H PRN IV NAUSEA/VOMITING Last administered on 06/25/18 09:07; Admin Dose 4 MG; Start 06/10/18 at 18:00 Lorazepam (Ativan) 1 mg Q4H PRN IV anxiety Last administered on 06/12/18 15 :28; Admin Dose 1 MG; Start 06/11/18 at 21:30 IV Flush (NS 10 ml) 10 ml PRN PRN IV IV PROTOCOL; Start 06/16/18 at 17:00 Methylnaltrexone [place] (Relistor) 12 mg Q48H SC ; Start 06/17/18 at 08:30 Phenol (Chloraseptic Throat [place]) 2 spray Q2H PRN MT SORE THROAT Last administered on 06/17/18 21:23; Admin Dose 2 SPRAY; Start 06/17/18 at 11:30 Pantoprazole (Protonix Iv) 40 mg BID@06,18 IV Last administered on 06/26/18 05:45; Admin Dose 40 MG; Start 06/20/18 at 08:30 Morphine Sulfate (morphine) 2 mg Q4H PRN IV SEVERE PAIN LEVEL 7-10 Last administered on 06/23/18 19:45; Admin Dose 2 MG; Start 06/21/18 at 21:00 Metoclopramide HCl (Reglan) 10 mg Q6 IV Last administered on 06/26/18 13:48; Admin Dose 10 MG; Start 06/22/18 at 12:00 Dextrose/Sodium Chloride 1,000 ml @ 100 mls/hr Q10H IV Last administered on 06/26/18 13:16; Admin Dose 100 MLS/HR; Start 06/22/18 at 12:00 Bisacodyl (Dulcolax Supp) 10 mg DAILY PRN [place] CONSTIPATION Last administered on 06/25/18 12:22; Admin Dose 10 MG; Start 06/25/18 at 12:00 RAFA HEAD Jun 26, 2018 2:28 pm
[2018-06-26] MEDS ORDERED: TPN 1,000 ML IV SCH (14:42)
[2018-06-26] MEDS: ACCU-CHEK XX SCH ×2 (20:00→21:00)
[2018-06-26 20:04] VITALS: BP 117/65; PULSE 70; RESP 16
[2018-06-26] MEDS: TPN 1,000 ML IV SCH (21:34)
[2018-06-27] MEDS: ACCU-CHEK XX SCH ×6 (01:00→21:00)
[2018-06-27] MEDS: METOCLOPRAMIDE 10 MG INJ IV SCH ×4 (01:06→18:58)
[2018-06-27 01:50] VITALS: BP 123/64; PULSE 87; RESP 16
[2018-06-27] MEDS: ONDANSETRON 4 MG INJ IV PRN (02:17)
[2018-06-27] MEDS: PANTOPRAZOLE 40 MG INJ IV SCH ×2 (05:19→18:57)
[2018-06-27] MEDS: METHYLNALTREXONE 12 MG/0.6 ML VIAL SC SCH (08:30)
[2018-06-27 08:53] VITALS: BP 112/57; PULSE 93; RESP 18
[2018-06-27 08:59] VITALS: BP 112/57; PULSE 88; RESP 18
[2018-06-27] MEDS ORDERED: POTASSIUM CHLORIDE 20 MEQ /SW 100 ML IVPB ONE (09:00)
--- NOTE | 2018-06-27 11:08 | PN ---
Date/Time of Note Date/Time of Note DATE: 06/27/18 TIME: 10:58 Assessment/Plan Lines/Catheters IV Catheter Type (from [facility]): PICC Line Ramsey in Place (from Nrs): No Assessment/Plan Chief Complaint/Hosp Course 1. CT with emphysematous gastritis, portal venous air, thickening of pylorus and duodenal bulb, thick-walled gallbladder, mesenteric inflammation in the upper abdomen with free fluid. Repeat CT noted with improvement of emphysematous gastritis; EGD w stent placement 06/21/18; 04/06/19 status post gastrojejunostomy, resection of right ovarian mass and partial omentectomy at [facility] by Nausea and vomiting persistent; Re-visited idea of j-tube placement, at this time she would like to continue with oral nutrition and chemo. Hold off on J- tube at this time -Close monitoring> if unable to tolerate liquid diet after chemo, can consider J-tube placement -Per gi>antiemetics/motility agents -Supportive measures -Ambulate 2. Acute hyperkalemia: resolved 3. Anemia -Monitor 4. 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 Previous history of perforated duodenal ulcer and obstruction favors site of primary tumor in the upper GI tract. -Per oncology> pending chemo 5. Nausea and vomiting: Improved -as above 6. Constipation: Improved -Optimize bowel regimen as able Thank you. Patient seen and examined in collaboration with Dr. Ag Calle. Subjective 24 Hr Interval Summary Feels well. Tolerating some liquids this morning. No fevers, chills, sob, congested cough, cp, palpitations, cross, dizziness, n/v/d/dysuria. Exam/Review of Systems Vital Signs Vitals Vital Signs Date Temp Pulse Resp B/P (MAP) Pulse Ox O2 O2 Flow FiO2 Time Delivery Rate 06/27/18 97.7 88 18 112/57 99 Room Air 08:59 (75) Intake and Output 06/26/18 06/26/18 06/27/18 1515:00 23:00 07:00 IntakeIntake Total 750 ml 1250 ml 480 ml OutputOutput Total 400 ml 600 ml 300 ml BalanceBalance 350 ml 650 ml 180 ml Exam Free Text/Dictation Constitutional: alert, oriented Psych: min anxiety Head: normocephalic, atraumatic Eyes: nl conjunctiva, EOMI, PERRL; No icteric ENMT: nl external ears & nose, nl lips & teeth, mucosa pink and moist Neck: supple, non-tender; No jvd Respiratory: normal air movement; No congested cough, No labored breathing, No wheezing Cardiovascular: regular rate and rhythm; No edema Gastrointestinal: soft, tender (Minimal epigastric), other (No rigidity); No distended, No rebound or guarding Musculoskeletal: nl extremities to inspection; No joint tenderness Extremities: normal pulses; No calf tenderness, No edema Neurological: nl mental status, nl speech, nl strength Skin: nl turgor; No rash or lesions, No diaphoresis Lymph: nl lymph nodes Results Result Diagram: 06/27/18 0438 06/27/18 0438 IVELISSE CEJA NP Jun 27, 2018 11:08
--- NOTE | 2018-06-27 13:14 | PN ---
Date/Time of Note Date/Time of Note DATE: 06/27/18 TIME: 13:14 Objective Vitals Vital Signs Date Temp Pulse Resp B/P (MAP) Pulse Ox O2 O2 Flow FiO2 Time Delivery Rate 06/27/18 97.7 88 18 112/57 99 Room Air 08:59 (75) Intake and Output 06/26/18 06/26/18 06/27/18 1414:59 22:59 06:59 IntakeIntake Total 750 ml 1250 ml 480 ml OutputOutput Total 350 ml 650 ml 300 ml BalanceBalance 400 ml 600 ml 180 ml Results Result Diagram: 06/27/1843706/27/18437 Medications Medications Current Medications IV Flush (NS 3 ml) 3 ml PER PROTOCOL IV ; Start 06/10/18 at 18:00 Ondansetron HCl (Zofran Inj) 4 mg Q6H PRN IV NAUSEA/VOMITING Last administered on 06/27/18at 02:17; Admin Dose 4 MG; Start 06/10/18 at 18:00 Lorazepam (Ativan) 1 mg Q4H PRN IV anxiety Last administered on 06/12/18at 15:28; Admin Dose 1 MG; Start 06/11/18 at 21:30 IV Flush (NS 10 ml) 10 ml PRN PRN IV IV PROTOCOL; Start 06/16/18 at 17:00 Methylnaltrexone [place] (Relistor) 12 mg Q48H SC ; Start 06/17/18 at 08:30 Phenol (Chloraseptic Throat [place]) 2 spray Q2H PRN [place] SORE THROAT Last administered on 06/17/18at 21:23; Admin Dose 2 SPRAY; Start 06/17/18 at 11:30 Pantoprazole (Protonix Iv) 40 mg BID@06,18 IV Last administered on 06/27/18at 05:19; Admin Dose 40 MG; Start 06/20/18 at 08:30 Morphine Sulfate (morphine) 2 mg Q4H PRN IV SEVERE PAIN LEVEL 7-10 Last administered on 06/23/18at 19:45; Admin Dose 2 MG; Start 06/21/18 at 21:00 Metoclopramide HCl (Reglan) 10 mg Q6 IV Last administered on 06/27/18at 05:19; Admin Dose 10 MG; Start 06/22/18 at 12:00 Bisacodyl (Dulcolax Supp) 10 mg DAILY PRN [place] CONSTIPATION Last administered on 06/25/18at 12:22; Admin Dose 10 MG; Start 06/25/18 at 12:00 Diagnostic Test (Pha) (Accu-Chek) 1 ea Q4 XX Last administered on 06/27/18at 08:39; Admin Dose 1 EA; Start 06/26/18 at 20:00 Total Parenteral Nutrition 1,000 ml @ 60 mls/hr [id number] IV Last administered on 06/26/18at 21:34; Admin Dose 60 MLS/HR; Start 06/26/18 at 20:00 VTE Prophylaxis Risk score (from [facility])>0 risk: 6 SCD applied (from [facility]): No SCD contraindication: other Lines/Catheters IV Catheter Type: Ramsey in Place: No Assessment/Plan Hospital Course Subjective Patient feeling a little bit better today, only had nausea and vomiting twice Objective Physical exam General: Patient is laying in bed and answers questions appropriately Mentation: Patient is alert and oriented 4, Head: Normocephalic atraumatic Eyes: EOMI, pupils reactive to light Neck: Supple, nontender, midline Respiratory: Clear to auscultation bilaterally Cardiovascular: regular rate, no obvious murmurs Gastrointestinal: non-tender to palpation, bowel sounds heard. Neurological: Moves all extremities spontaneously Skin: No new skin lesions Assessment/Plan 1. Nausea with vomiting - Persists - Would like Jtube after initiation of chemo if she still cannot tolerate PO intake - Will consult dietary for TPN recommendations - also most likely secondary to gastric outlet obstruction - GI and Surgery on board and appreciate recommendations 2. Partial obstructive gastric outlet - Surgery on board and appreciate recommendations. still with N/V but would like to hold off on Jtube for now - s/p placement of stent by GI - CT scan showing gastric thickening and emphysematous gastritis concerning for cancer vs necrosis with likely Gastric outlet obstruction, ovarian mass, possible abscess, etc. 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 Plans to start chemotherapy when available (insurance auth) - Patient's prior oncologist is Dr Mae at [facility]. 4. JAMAL - resolved 5. PUD - GI on board - PPI 6. Constipation - bowel regimen 7. Disposition -start chemo eriberto in order to determine if it has improvement of gastric outlet obstruction ALYX HENDRIX Jun 27, 2018 13:14
[2018-06-27] MEDS: TPN 1,000 ML IV SCH (13:23)
--- NOTE | 2018-06-27 14:50 | CONS ---
Assessment/Plan Assessment/Plan Hospital Course (Demo Recall) unfortunate 47 yo with metastatic gastric ca. admitted with N/V/abdo pain. s/p EGD and metal stent placed across the malignant stricture of the antrum of the stomach and also first part of the duodenum. #gastric ca -biopsy from EGD and reports from outside facilities are c/w gastric ca signet ring features. unclear why pt thought it was ovarian ca, have call out to Dr Mcdonald's office as well -given metastatic disease will start chemo MARY for tumor debulking given how symptomatic she is. recommend initiation of FOLFOX, chemo orders written and sent to pharmacy I discussed chemo with pt including schedule which is every 2 weeks as an outpt after cycle 1. side effects include but not limited to nausea, fatigue, myelosuppression, infection, neuropathy, cold sensitivity, mucositis, she verbalized understanding and consented to start -will request her 2 testing and PDL1 to be added to path to see if she is a candidate for herceptin along with FOLFOX -needs mediport prior to discharge -CHEMO WILL START ONCE IT IS AUTHORIZED BY HER INSURANCE -Dr Suarez also informed me she has motility issues due to tumor infiltration of stomach and stent will not allow her to eat. have communicated with Dr Calle if maybe a j tube can help Thank you Dr Lee and Dr Landeros for allowing us to participate in the care of this pleasant pt Consultation Date/Type/Reason Admit Date/Time Jun 10, 2018 at 18:42 Initial Consult Date 06/11/18 Requesting Provider: ELMER LEE MD Date/Time of Note DATE: 06/27/18 TIME: 14:49 24 HR Interval Summary Free Text/Dictation feeling stronger now she is on TPN still with emesis Exam/Review of Systems Exam Vitals Vital Signs Date Temp Pulse Resp B/P (MAP) Pulse Ox O2 O2 Flow FiO2 Time Delivery Rate 06/27/18 97.7 88 18 112/57 99 Room Air 08:59 (75) Intake and Output 06/26/18 06/26/18 06/27/18 1515:00 23:00 07:00 IntakeIntake Total 750 ml 1250 ml 480 ml OutputOutput Total 400 ml 600 ml 300 ml BalanceBalance 350 ml 650 ml 180 ml Constitutional: frail Psych: no complaints, nl mood/affect Head: normocephalic, atraumatic Eyes: nl conjunctiva, EOMI, nl lids, nl sclera, PERRL ENMT: nl external ears & nose, nl lips & teeth, nl nasal mucosa & septum Neck: supple, non-tender Respiratory: clear to auscultation, normal air movement Cardiovascular: regular rate and rhythm, nl pulses Gastrointestinal: soft Results Result Diagram: 06/27/18 0438 06/27/18 0438 Results 24hrs Laboratory Tests Test 06/26/18 22:55 06/27/18 01:04 06/27/18 04:38 06/27/18 05:26 Bedside Glucose 121 122 122 White Blood Count 6.1 Red Blood Count 3.71 L Hemoglobin 9.9 L Hematocrit 30.5 L Mean Corpuscular 82.2 Volume Mean Corpuscular 26.7 L Hemoglobin Mean Corpuscular 32.5 Hemoglobin Concent Red Cell 19.5 H Distribution Width Platelet Count 299 Mean Platelet Volume 9.8 Immature 0.300 Granulocytes % Neutrophils % 60.4 Lymphocytes % 24.9 Monocytes % 10.4 Eosinophils % 3.5 Basophils % 0.5 Nucleated Red Blood 0.0 Cells % Immature 0.020 Granulocytes # Neutrophils # 3.7 Lymphocytes # 1.5 Monocytes # 0.6 Eosinophils # 0.2 Basophils # 0.0 Nucleated Red Blood 0.0 Cells # Sodium Level 136 Potassium Level 3.5 Chloride Level 105 Carbon Dioxide Level 23 Anion Gap 8 Blood Urea Nitrogen 20 Creatinine 0.53 Est Glomerular > 60 Filtrat Rate mL/min Glucose Level 114 Calcium Level 9.0 Phosphorus Level 3.5 Magnesium Level 1.9 Total Bilirubin 0.1 L Direct Bilirubin 0.00 Indirect Bilirubin 0.1 Aspartate Amino 18 Transf (AST/SGOT) Alanine 41 Aminotransferase (AL T/SGPT) Alkaline Phosphatase 100 Total Protein 6.8 Albumin 3.1 L Globulin 3.70 H Albumin/Globulin 0.83 Ratio Test 06/27/18 08:30 Bedside Glucose 117 Medications Medication Current Medications IV Flush (NS 3 ml) 3 ml PER PROTOCOL IV ; Start 06/10/18 at 18:00 Ondansetron HCl (Zofran Inj) 4 mg Q6H PRN IV NAUSEA/VOMITING Last administered on 06/27/18at 02:17; Admin Dose 4 MG; Start 06/10/18 at 18:00 Lorazepam (Ativan) 1 mg Q4H PRN IV anxiety Last administered on 06/12/18 15:28; Admin Dose 1 MG; Start 06/11/18 at 21:30 IV Flush (NS 10 ml) 10 ml PRN PRN IV IV PROTOCOL; Start 06/16/18 at 17:00 Methylnaltrexone [place] (Relistor) 12 mg Q48H SC ; Start 06/17/18 at 08:30 Phenol (Chloraseptic Throat [place]) 2 spray Q2H PRN [place] SORE THROAT Last administered on 06/17/18 21:23; Admin Dose 2 SPRAY; Start 06/17/18 at 11:30 Pantoprazole (Protonix Iv) 40 mg BID@06,18 IV Last administered on 06/27/18 05:19; Admin Dose 40 MG; Start 06/20/18 at 08:30 Morphine Sulfate (morphine) 2 mg Q4H PRN IV SEVERE PAIN LEVEL 7-10 Last admini stered on 06/23/18 19:45; Admin Dose 2 MG; Start 06/21/18 at 21:00 Metoclopramide HCl (Reglan) 10 mg Q6 IV Last administered on 06/27/18 13:23; Admin Dose 10 MG; Start 06/22/18 at 12:00 Bisacodyl (Dulcolax Supp) 10 mg DAILY PRN [place] CONSTIPATION Last administered on 06/25/18 12:22; Admin Dose 10 MG; Start 06/25/18 at 12:00 Diagnostic Test (Pha) (Accu-Chek) 1 ea Q4 XX Last administered on 06/27/18 08:39; Admin Dose 1 EA; Start 06/26/18 at 20:00 Total Parenteral Nutrition 1,000 ml @ 60 mls/hr [id number] IV Last administered on 06/27/18 13:23; Admin Dose 60 MLS/HR; Start 06/26/18 at 20:00 Fat Emulsion Intravenous 250 ml @ 10.417 mls/ hr Q24H IV ; Start 06/27/18 at 16:00 NICK VARELA Jun 27, 2018 14:50
[2018-06-27 14:56] VITALS: BP 119/62; PULSE 46; RESP 18
[2018-06-27] MEDS: FAT EMULSION 20% 250 ML IV SCH (16:57)
[2018-06-27 20:40] VITALS: BP 124/72; PULSE 58; RESP 17
[2018-06-28] MEDS: METOCLOPRAMIDE 10 MG INJ IV SCH ×5 (00:04→23:54)
[2018-06-28 02:44] VITALS: BP 133/70; PULSE 97; RESP 18
[2018-06-28] MEDS: PANTOPRAZOLE 40 MG INJ IV SCH ×2 (05:20→18:42)
[2018-06-28] MEDS: TPN 1,000 ML IV SCH ×2 (06:41→22:33)
[2018-06-28 07:24] VITALS: BP 135/60; PULSE 102; RESP 18
[2018-06-28] MEDS ORDERED: POTASSIUM CHLORIDE 20 MEQ /SW 100 ML IVPB ONE (09:00)
[2018-06-28] MEDS: ACCU-CHEK XX SCH ×2 (09:00→21:39)
[2018-06-28 10:58] VITALS: Ht 162.6 cm; Wt 46.5 kg
--- NOTE | 2018-06-28 11:58 | PN ---
Date/Time of Note Date/Time of Note DATE: 06/28/18 TIME: 11:55 Assessment/Plan Lines/Catheters IV Catheter Type (from [facility]): PICC Line Ramsey in Place (from [facility]): No Assessment/Plan Chief Complaint/Hosp Course 1. CT with emphysematous gastritis, portal venous air, thickening of pylorus and duodenal bulb, thick-walled gallbladder, mesenteric inflammation in the upper abdomen with free fluid. Repeat CT noted with improvement of emphysematous gastritis; EGD w stent placement 06/21/18; 04/06/19 status post gastrojejunostomy, resection of right ovarian mass and partial omentectomy at [facility] by Nausea and vomiting improving, going longer periods without vomiting; At this time she would like to continue with oral nutrition and chemo. Hold off on J-tube at this time -Close monitoring> if unable to tolerate liquid diet after chemo, can consider J-tube placement -Per gi>antiemetics/motility agents -Supportive measures -Ambulate 2. Acute hyperkalemia: resolved 3. Anemia -Monitor 4. 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 Previous history of perforated duodenal ulcer and obstruction favors site of primary tumor in the upper GI tract. -Per oncology> pending chemo 5. Nausea and vomiting: Improved -as above 6. Constipation: Improved -Optimize bowel regimen as able Thank you. Patient seen and examined in collaboration with Dr. Ag Calle. Subjective 24 Hr Interval Summary Feels well. Going longer periods without vomiting. Able to tolerate boost drink. Energy improved. No fevers, chills, sob, congested cough, cp, palpitations, cross, dizziness, n/v/d/dysuria. Exam/Review of Systems Vital Signs Vitals Vital Signs Date Temp Pulse Resp B/P (MAP) Pulse Ox O2 O2 Flow FiO2 Time Delivery Rate 06/28/18 97.5 102 18 135/60 95 07:24 (85) 06/27/18 Room Air 14:56 Intake and Output 06/27/18 06/27/18 06/28/18 1515:00 23:00 07:00 IntakeIntake Total 700 ml 400 ml 945 ml OutputOutput Total 200 ml 300 ml 400 ml BalanceBalance 500 ml 100 ml 545 ml Exam Free Text/Dictation Constitutional: alert, oriented Psych: min anxiety Head: normocephalic, atraumatic Eyes: nl conjunctiva, EOMI, PERRL; No icteric ENMT: nl external ears & nose, nl lips & teeth, mucosa pink and moist Neck: supple, non-tender; No jvd Respiratory: normal air movement; No congested cough, No labored breathing, No wheezing Cardiovascular: regular rate and rhythm; No edema Gastrointestinal: soft, tender (Minimal epigastric), other (No rigidity); No distended, No rebound or guarding Musculoskeletal: nl extremities to inspection; No joint tenderness Extremities: normal pulses; No calf tenderness, No edema Neurological: nl mental status, nl speech, nl strength Skin: nl turgor; No rash or lesions, No diaphoresis Lymph: nl lymph nodes Results Result Diagram: 06/28/1842506/28/18425 IVELISSE CEJA NP Jun 28, 2018 11:58
--- NOTE | 2018-06-28 14:01 | PN ---
Date/Time of Note Date/Time of Note DATE: 06/28/18 TIME: 14:00 Objective Vitals Vital Signs Date Temp Pulse Resp B/P (MAP) Pulse Ox O2 O2 Flow FiO2 Time Delivery Rate 06/28/18 97.5 102 18 135/60 95 07:24 (85) 06/27/18 Room Air 14:56 Intake and Output 06/27/18 06/27/18 06/28/18 1515:00 23:00 07:00 IntakeIntake Total 700 ml 400 ml 945 ml OutputOutput Total 200 ml 300 ml 400 ml BalanceBalance 500 ml 100 ml 545 ml Results Result Diagram: 06/28/18 0426 06/28/18 0426 Medications Medications Current Medications IV Flush (NS 3 ml) 3 ml PER PROTOCOL IV ; Start 06/10/18 at 18:00 Ondansetron HCl (Zofran Inj) 4 mg Q6H PRN IV NAUSEA/VOMITING Last administered on 06/27/18at 02:17; Admin Dose 4 MG; Start 06/10/18 at 18:00 Lorazepam (Ativan) 1 mg Q4H PRN IV anxiety Last administered on 06/12/18at 15:28; Admin Dose 1 MG; Start 06/11/18 at 21:30 IV Flush (NS 10 ml) 10 ml PRN PRN IV IV PROTOCOL; Start 06/16/18 at 17:00 Methylnaltrexone [place] (Relistor) 12 mg Q48H SC ; Start 06/17/18 at 08:30 Phenol (Chloraseptic Throat [place]) 2 spray Q2H PRN MT SORE THROAT Last administered on 06/17/18at 21:23; Admin Dose 2 SPRAY; Start 06/17/18 at 11:30 Pantoprazole (Protonix Iv) 40 mg BID@06,18 IV Last administered on 06/28/18at 05:20; Admin Dose 40 MG; Start 06/20/18 at 08:30 Morphine Sulfate (morphine) 2 mg Q4H PRN IV SEVERE PAIN LEVEL 7-10 Last administered on 06/23/18at 19:45; Admin Dose 2 MG; Start 06/21/18 at 21:00 Metoclopramide HCl (Reglan) 10 mg Q6 IV Last administered on 06/28/18at 05:20; Admin Dose 10 MG; Start 06/22/18 at 12:00 Bisacodyl (Dulcolax Supp) 10 mg DAILY PRN [place] CONSTIPATION Last administered on 06/25/18at 12:22; Admin Dose 10 MG; Start 06/25/18 at 12:00 Total Parenteral Nutrition 1,000 ml @ 60 mls/hr [id number] IV Last administered on 06/28/18at 06:41; Admin Dose 60 MLS/HR; Start 06/26/18 at 20:00 Fat Emulsion Intravenous 250 ml @ 10.417 mls/ hr Q24H IV Last administered on 06/27/18at 16:57; Admin Dose 10.417 MLS/HR; Start 06/27/18 at 16:00 Diagnostic Test (Pha) (Accu-Chek) 1 ea Q12 XX ; Start 06/27/18 at 21:00 VTE Prophylaxis Risk score (from Ns)>0 risk: 6 SCD applied (from [facility]): No SCD contraindication: other Lines/Catheters IV Catheter Type: Ramsey in Place: No Assessment/Plan Hospital Course Subjective Patient feeling a little bit better today Objective Physical exam General: Patient is laying in bed and answers questions appropriately Mentation: Patient is alert and oriented 4, Head: Normocephalic atraumatic Eyes: EOMI, pupils reactive to light Neck: Supple, nontender, midline Respiratory: Clear to auscultation bilaterally Cardiovascular: regular rate, no obvious murmurs Gastrointestinal: non-tender to palpation, bowel sounds heard. Neurological: Moves all extremities spontaneously Skin: No new skin lesions Assessment/Plan 1. Nausea with vomiting - Persists - Would like Jtube after initiation of chemo if she still cannot tolerate PO intake - dietary for TPN recommendations - also most likely secondary to gastric outlet obstruction - GI and Surgery on board and appreciate recommendations 2. Partial obstructive gastric outlet - Surgery on board and appreciate recommendations. still with N/V but would like to hold off on Jtube for now - s/p placement of stent by GI - CT scan showing gastric thickening and emphysematous gastritis concerning for cancer vs necrosis with likely Gastric outlet obstruction, ovarian mass, possible abscess, etc. 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 Plans to start chemotherapy when available (insurance auth) - Patient's prior oncologist is Dr Mae at [facility]. 4. JAMAL - resolved 5. PUD - GI on board - PPI 6. Constipation - bowel regimen 7. Disposition -start chemo ALYX Quan Jun 28, 2018 14:01
[2018-06-28 14:48] VITALS: BP 126/65; PULSE 101; RESP 18
[2018-06-28] MEDS: FAT EMULSION 20% 250 ML IV SCH (15:36)
[2018-06-28 19:08] VITALS: BP 123/60; PULSE 100; RESP 16
[2018-06-28] MEDS: morphine 2 MG INJ IV PRN (22:32)
[2018-06-29 02:17] VITALS: BP 124/65; PULSE 100
[2018-06-29] MEDS: METOCLOPRAMIDE 10 MG INJ IV SCH ×4 (05:13→22:40)
[2018-06-29] MEDS: PANTOPRAZOLE 40 MG INJ IV SCH ×2 (05:13→18:00)
--- NOTE | 2018-06-29 06:34 | PN ---
DATE: 06/28/2018 SUBJECTIVE: The patient is at this time having less nausea, less vomiting. She is able to take ente ral alimentation which is a Breeze. PHYSICAL EXAMINATION: GENERAL: She is alert. She is not in distress. VITAL SIGNS: Temperature 97.7, blood pressure 126/65. ABDOMEN: Unremarkable. LABORATORY WORKUP: WBC count is 6800, hemoglobin 11.1. Calcium 8.8, potassium 3.6. Liver panel is normal. CLINICAL IMPRESSION: Gastric outlet obstruction due to gastric carcinoma, status post metal stent pl acement through the antrum and the duodenum and she seems to be tolerating the enteral alimentation. PLAN: Chemotherapy as per oncologist. Continue present management. Dictated By: KARMEN ARAGON MD NC/NTS Conf#: [id number] DID#: [id number] CC: ELMER CAVAZOS MD; ALYX HENDRIX MD; DARVIN BOURNE MD;*EndCC*
[2018-06-29 08:19] VITALS: BP 127/62; PULSE 102; RESP 18
[2018-06-29] MEDS: METHYLNALTREXONE 12 MG/0.6 ML VIAL SC SCH (08:30)
[2018-06-29] MEDS: ACCU-CHEK XX SCH ×2 (09:00→20:51)
[2018-06-29] MEDS ORDERED: DEXAMETHASONE 4 MG/ML 20 MG in DEXTROSE 5% 50 ML IVPB PRN (11:00)
[2018-06-29] MEDS ORDERED: DIPHENHYDRAMINE 50 MG INJ IV PRN (11:00)
--- NOTE | 2018-06-29 11:38 | PN ---
Date/Time of Note Date/Time of Note DATE: 06/29/18 TIME: 11:35 Assessment/Plan Lines/Catheters IV C[facility]ter Type (from [facility]): PICC Line Ramsey in Place (from [facility]): No Assessment/Plan Chief Complaint/Hosp Course 1. CT with emphysematous gastritis, portal venous air, thickening of pylorus and duodenal bulb, thick-walled gallbladder, mesenteric inflammation in the upper abdomen with free fluid. Repeat CT noted with improvement of emphysematous gastritis; EGD w stent placement 06/21/18; 04/06/19 status post gastrojejunostomy, resection of right ovarian mass and partial omentectomy at [facility] by Nausea and vomiting improving, going longer periods without vomiting; At this time she would like to continue with oral nutrition and chemo. Hold off on J-tube at this time -Continue close monitoring> if unable to tolerate liquid diet after chemo, can consider J-tube placement -Liquid diet as tolerated -Per gi>antiemetics/motility agents -Supportive measures -Ambulate 2. 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 Previous history of perforated duodenal ulcer and obstruction favors site of primary tumor in the upper GI tract. -Per oncology> pending chemo 3. Anemia -Monitor 4. Constipation: Improved -Optimize bowel regimen as able 5. Nausea and vomiting: Improved -as above 6. Poor nutrition: Oral and TPN -As above Thank you. Patient seen and examined in collaboration with Dr. Ag Calle. Subjective 24 Hr Interval Summary Feels well. Still with vomiting however now with longer periods in between. Possible chemo initiation today. No fevers, chills, sob, congested cough, cp, palpitations, cross, dizziness, nausea, vomiting, diarrhea, dysuria. Exam/Review of Systems Vital Signs Vitals Vital Signs Date Temp Pulse Resp B/P (MAP) Pulse Ox O2 O2 Flow FiO2 Time Delivery Rate 06/29/18 98.5 102 18 127/62 98 Room Air 08:19 (83) Intake and Output 06/28/18 06/28/18 06/29/18 1515:00 23:00 07:00 IntakeIntake Total 100 ml 1340 ml 545 ml BalanceBalance 100 ml 1340 ml 545 ml Exam Free Text/Dictation Constitutional: alert, oriented, frail Psych: Normal mood Head: normocephalic, atraumatic Eyes: nl conjunctiva, EOMI, PERRL; No icteric ENMT: nl external ears & nose, nl lips & teeth, mucosa pink and moist Neck: supple, non-tender; No jvd Respiratory: normal air movement; No congested cough, No labored breathing, No wheezing Cardiovascular: regular rate and rhythm; No edema Gastrointestinal: soft, tender (Minimal epigastric), other (No rigidity); No distended, No rebound or guarding Musculoskeletal: nl extremities to inspection; No joint tenderness Extremities: normal pulses; No calf tenderness, No edema Neurological: nl mental status, nl speech, nl strength Skin: nl turgor; No rash or lesions, No diaphoresis Lymph: nl lymph nodes Results Result Diagram: 06/28/18 0426 06/29/18 0445 IVELISSE CEJA NP Jun 29, 2018 11:38
[2018-06-29] MEDS ORDERED: CALCIUM GLUCONATE 10% 1 GM in DEXTROSE 5% 100 ML IVPB ONE (12:30)
[2018-06-29] MEDS ORDERED: MAGNESIUM SULFATE 1 GM/D5W 100 ML IVPB ONE (12:30)
[2018-06-29 15:20] VITALS: BP 119/69; PULSE 111; RESP 18
[2018-06-29] MEDS ORDERED: ONDANSETRON INJ 16 MG, DEXAMETHASONE 4 MG/ML 20 MG in DEXTROSE 5% 50 ML IV SCH (15:30)
[2018-06-29] MEDS ORDERED: DIPHENHYDRAMINE 50 MG INJ IV SCH (15:30)
[2018-06-29] MEDS: FAT EMULSION 20% 250 ML IV SCH (15:33)
[2018-06-29] MEDS ORDERED: OXALIPLATIN IV SCH (16:00)
[2018-06-29] MEDS ORDERED: DEXTROSE 5% IV SCH ×3 (16:00→18:00)
[2018-06-29] MEDS ORDERED: LEUCOVORIN CALCIUM IV SCH (16:00)
--- NOTE | 2018-06-29 16:10 | CONS ---
Assessment/Plan Assessment/Plan Hospital Course (Demo Recall) unfortunate 47 yo with metastatic gastric ca. admitted with N/V/abdo pain. s/p EGD and metal stent placed across the malignant stricture of the antrum of the stomach and also first part of the duodenum. #gastric ca -biopsy from EGD and reports from outside facilities are c/w gastric ca signet ring features. unclear why pt thought it was ovarian ca, have call out to Dr Mcdonald's office as well to update him -given metastatic disease will start chemo MARY for tumor debulking given how sy mptomatic she is. recommend initiation of FOLFOX, chemo orders written and sent to pharmacy I discussed chemo with pt including schedule which is every 2 weeks as an outpt after cycle 1. side effects include but not limited to nausea, fatigue, myelosuppression, infection, neuropathy, cold sensitivity, mucositis, she verbalized understanding and consented to start -will request her 2 testing and PDL1 to be added to path to see if she is a candidate for herceptin along with FOLFOX -needs mediport prior to discharge -CHEMO TO START TODAY 06/29/18 -Dr Suarez also informed me she has motility issues due to tumor infiltration of stomach and stent will not allow her to eat. have communicated with Dr Calle if maybe a j tube can help #VAGINAL BLEEDING -check pelvic and transvaginal US -?consider depo to control bleeding once we have pelvic US result Thank you Dr Lee and Dr Landeros for allowing us to participate in the care of this pleasant pt Consultation Date/Type/Reason Admit Date/Time Jun 10, 2018 at 18:42 Initial Consult Date 06/11/18 Requesting Provider: ELMER LEE MD Date/Time of Note DATE: 06/29/18 TIME: 16:10 24 HR Interval Summary Free Text/Dictation pt finally starting chemo this evening she notes she is having irregular menses Exam/Review of Systems Exam Vitals Vital Signs Date Temp Pulse Resp B/P (MAP) Pulse Ox O2 O2 Flow FiO2 Time Delivery Rate 06/29/18 98.3 111 18 119/69 98 Room Air 15:20 (86) Intake and Output 06/28/18 06/28/18 06/29/18 1515:00 23:00 07:00 IntakeIntake Total 100 ml 1340 ml 545 ml BalanceBalance 100 ml 1340 ml 545 ml Constitutional: alert, oriented, well developed, frail Head: normocephalic, atraumatic Eyes: nl conjunctiva, EOMI, nl lids, nl sclera, PERRL ENMT: nl external ears & nose, nl lips & teeth, nl nasal mucosa & septum Results Result Diagram: 06/28/18 0426 06/29/18 0445 Results 24hrs Laboratory Tests Test 06/28/18 20:58 06/29/18 04:45 06/29/18 08:53 Bedside Glucose 129 144 Sodium Level 135 Potassium Level 4.2 Chloride Level 100 Carbon Dioxide Level 23 Anion Gap 12 Blood Urea Nitrogen 43 #H Creatinine 0.62 Est Glomerular Filtrat Rate mL/min > 60 Glucose Level 114 # Calcium Level 9.3 Phosphorus Level 3.5 Magnesium Level 2.2 Total Bilirubin 0.0 L Direct Bilirubin 0.00 Indirect Bilirubin 0.0 Aspartate Amino Transf (AST/SGOT) 19 Alanine Aminotransferase (ALT/SGPT) 48 Alkaline Phosphatase 145 H Total Protein 7.9 Albumin 3.6 Globulin 4.30 H Albumin/Globulin Ratio 0.83 Medications Medication Current Medications IV Flush (NS 3 ml) 3 ml PER PROTOCOL IV ; Start 06/10/18 at 18:00 Ondansetron HCl (Zofran Inj) 4 mg Q6H PRN IV NAUSEA/VOMITING Last administered on 06/27/18at 02:17; Admin Dose 4 MG; Start 06/10/18 at 18:00 Lorazepam (Ativan) 1 mg Q4H PRN IV anxiety Last administered on 06/12/18at 15:28; Admin Dose 1 MG; Start 06/11/18 at 21:30 IV Flush (NS 10 ml) 10 ml PRN PRN IV IV PROTOCOL; Start 06/16/18 at 17:00 Methylnaltrexone [place] (Relistor) 12 mg Q48H SC ; Start 06/17/18 at 08:30 Phenol (Chloraseptic Throat [place]) 2 spray Q2H PRN [place] SORE THROAT Last administered on 06/17/18at 21:23; Admin Dose 2 SPRAY; Start 06/17/18 at 11:30 Pantoprazole (Protonix Iv) 40 mg BID@06,18 IV Last administered on 06/29/18at 05:13; Admin Dose 40 MG; Start 06/20/18 at 08:30 Morphine Sulfate (morphine) 2 mg Q4H PRN IV SEVERE PAIN LEVEL 7-10 Last ad ministered on 06/28/18at 22:32; Admin Dose 2 MG; Start 06/21/18 at 21:00 Metoclopramide HCl (Reglan) 10 mg Q6 IV Last administered on 06/29/18at 12:06; Admin Dose 10 MG; Start 06/22/18 at 12:00 Bisacodyl (Dulcolax Supp) 10 mg DAILY PRN [place] CONSTIPATION Last administered on 06/25/18at 12:22; Admin Dose 10 MG; Start 06/25/18 at 12:00 Total Parenteral Nutrition 1,000 ml @ 60 mls/hr [id number] IV Last administered on 06/28/18at 22:33; Admin Dose 60 MLS/HR; Start 06/26/18 at 20:00 Fat Emulsion Intravenous 250 ml @ 10.417 mls/ hr Q24H IV Last administered on 06/29/18at 15:33; Admin Dose 10.417 MLS/HR; Start 06/27/18 at 16:00 Diagnostic Test (Pha) (Accu-Chek) 1 ea Q12 XX Last administered on 06/29/18at 09:00; Admin Dose 1 EA; Start 06/27/18 at 21:00 Ondansetron HCl 16 mg/ Dexamethasone 20 mg/Dextrose 63 ml @ 252 mls/hr PRE- MEDICATION IV ; Start 06/29/18 at 15:30; Stop 06/30/18 at 15:29 Diphenhydramine HCl (Benadryl) 25 mg PRE-MEDICATION IV ; Start 06/29/18 at 15:30; Stop 06/30/18 at 15:29 Diphenhydramine HCl (Benadryl) 25 mg Q6H PRN IV ALLERGIC REACTION; Start 06/29/18 at 11:00 Dexamethasone 20 mg/Dextrose 55 ml @ 252 mls/hr Q6H PRN IVPB ALLERGIC REACTION; Start 06/29/18 at 11:00 Fluorouracil 604 mg/Dextrose 62.08 ml @ 248.32 mls/ hr ONCE IV ; Start 06/29/18 at 18:00; Stop 06/29/18 at 18:01 Fluorouracil 1812 mg/Dextrose 1,036.24 ml @ 45.054 mls/hr Q23H IV ; Start 06/29/18 at 18:30; Stop 07/01/18 at 16:29 NICK VARELA Jun 29, 2018 16:10
[2018-06-29] MEDS: TPN 1,000 ML IV SCH (16:12)
[2018-06-29] MEDS ORDERED: FLUOROURACIL IV SCH (18:00)
[2018-06-29 19:40] VITALS: BP 131/73; PULSE 104; RESP 20
[2018-06-29] MEDS: morphine 2 MG INJ IV PRN (21:07)
[2018-06-29 22:51] VITALS: BP 108/61; PULSE 98; RESP 18
[2018-06-29 23:30] VITALS: BP 128/74; PULSE 95; RESP 17
[2018-06-30] VITALS (12 sets, daily range): BP systolic 125–138; BP diastolic 60–78; PULSE 85–105; RESP 15–19
[2018-06-30] MEDS: METOCLOPRAMIDE 10 MG INJ IV SCH ×3 (04:51→17:58)
[2018-06-30] MEDS: PANTOPRAZOLE 40 MG INJ IV SCH ×2 (04:51→17:57)
[2018-06-30] MEDS: DEXTROSE 5% IV SCH (05:07)
[2018-06-30] MEDS: FLUOROURACIL IV SCH (05:07)
[2018-06-30] MEDS: TPN 1,000 ML IV SCH (08:54)
[2018-06-30] MEDS: ACCU-CHEK XX SCH ×2 (09:00→21:35)
--- NOTE | 2018-06-30 10:18 | PN ---
Date/Time of Note Date/Time of Note DATE: 06/30/18 TIME: 10:15 Assessment/Plan Lines/Catheters IV Catheter Type (from [facility]): PICC Line Ramsey in Place (from Nrs): No Assessment/Plan Chief Complaint/Hosp Course 1. CT with emphysematous gastritis, portal venous air, thickening of pylorus and duodenal bulb, thick-walled gallbladder, mesenteric inflammation in the upper abdomen with free fluid. Repeat CT noted with improvement of emphysematous gastritis; EGD w stent placement 06/21/18; 04/06/19 status post gastrojejunostomy, resection of right ovarian mass and partial omentectomy at [facility] by Nausea and vomiting continuing to improve with longer periods without vomiting. Patient decision to continue with oral nutrition, TPN and chemo. Hold off on J-tube at this time -Continue close monitoring> if unable to tolerate liquid diet after chemo, can consider J-tube placement -Liquid diet as tolerated -Per gi>antiemetics/motility agents -Supportive measures -Ambulate 2. 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 Previous history of perforated duodenal ulcer and obstruction favors site of primary tumor in the upper GI tract. -Per oncology> chemo ongoing 3. Anemia -Monitor 4. Constipation: Improved -Optimize bowel regimen as able 5. Nausea and vomiting: Improved -as above 6. Poor nutrition: Oral and TPN -As above Thank you. Patient seen and examined in collaboration with Dr. Ag Calle. Subjective 24 Hr Interval Summary Chemo ongoing today. Very minimal nausea and continues to have longer periods without vomiting. No fevers, chills, sob, congested cough, cp, palpitations, cross, dizziness, nausea, vomiting, diarrhea, dysuria. Exam/Review of Systems Vital Signs Vitals Vital Signs Date Temp Pulse Resp B/P (MAP) Pulse Ox O2 O2 Flow FiO2 Time Delivery Rate 06/30/18 97.7 96 19 128/73 98 Room Air 05:07 (91) Intake and Output 06/29/18 06/29/18 06/30/18 1515:00 23:00 07:00 IntakeIntake Total 210 ml 1348 ml 1818.93 ml OutputOutput Total 1050 ml 600 ml BalanceBalance 210 ml 298 ml 1218.93 ml Exam Free Text/Dictation Constitutional: alert, oriented, frail Psych: Normal mood Head: normocephalic, atraumatic Eyes: nl conjunctiva, EOMI, PERRL; No icteric ENMT: nl external ears & nose, nl lips & teeth, mucosa pink and moist Neck: supple, non-tender; No jvd Respiratory: normal air movement; No congested cough, No labored breathing, No wheezing Cardiovascular: regular rate and rhythm; No edema Gastrointestinal: soft, tender (Minimal), No distended, No rebound or guarding Musculoskeletal: nl extremities to inspection; No joint tenderness Extremities: normal pulses; No calf tenderness, No edema Neurological: nl mental status, nl speech, nl strength Skin: nl turgor; No rash or lesions, No diaphoresis Lymph: nl lymph nodes Results Result Diagram: 06/28/18 0426 06/30/18 0442 IVELISSE CEJA NP Jun 30, 2018 10:18
--- NOTE | 2018-06-30 12:23 | PN ---
Date/Time of Note Date/Time of Note DATE: 06/30/18 TIME: 12:22 Objective Vitals Vital Signs Date Temp Pulse Resp B/P (MAP) Pulse Ox O2 O2 Flow FiO2 Time Delivery Rate 06/30/18 98.4 95 18 134/78 99 Room Air 11:02 (96) Intake and Output 06/29/18 06/29/18 06/30/18 1515:00 23:00 07:00 IntakeIntake Total 210 ml 1348 ml 1818.93 ml OutputOutput Total 1050 ml 600 ml BalanceBalance 210 ml 298 ml 1218.93 ml Results Result Diagram: 06/28/18 0426 06/30/18 0442 Medications Medications Current Medications IV Flush (NS 3 ml) 3 ml PER PROTOCOL IV ; Start 06/10/18 at 18:00 Ondansetron HCl (Zofran Inj) 4 mg Q6H PRN IV NAUSEA/VOMITING Last administered on 06/27/18at 02:17; Admin Dose 4 MG; Start 06/10/18 at 18:00 Lorazepam (Ativan) 1 mg Q4H PRN IV anxiety Last administered on 06/12/18at 15:28; Admin Dose 1 MG; Start 06/11/18 at 21:30 IV Flush (NS 10 ml) 10 ml PRN PRN IV IV PROTOCOL; Start 06/16/18 at 17:00 Methylnaltrexone [place] (Relistor) 12 mg Q48H SC ; Start 06/17/18 at 08:30 Phenol (Chloraseptic Throat [place]) 2 spray Q2H PRN MT SORE THROAT Last administered on 06/17/18at 21:23; Admin Dose 2 SPRAY; Start 06/17/18 at 11:30 Pantoprazole (Protonix Iv) 40 mg BID@06,18 IV Last administered on 06/30/18 04:51; Admin Dose 40 MG; Start 06/20/18 at 08:30 Morphine Sulfate (morphine) 2 mg Q4H PRN IV SEVERE PAIN LEVEL 7-10 Last administered on 06/29/18at 21:07; Admin Dose 2 MG; Start 06/21/18 at 21:00 Metoclopramide HCl (Reglan) 10 mg Q6 IV Last administered on 06/30/18 04:51; Admin Dose 10 MG; Start 06/22/18 at 12:00 Bisacodyl (Dulcolax Supp) [address] CONSTIPATION Last administered on 06/25/18 12:22; Admin Dose 10 MG; Start 06/25/18 at 12:00 Total Parenteral Nutrition 1,000 ml @ 60 mls/hr [id number] IV Last administered on 06/30/18 08:54; Admin Dose 60 MLS/HR; Start 06/26/18 at 20:00 Fat Emulsion Intravenous 250 ml @ 10.417 mls/ hr Q24H IV Last administered on 06/29/18at 15:33; Admin Dose 10.417 MLS/HR; Start 06/27/18 at 16:00 Diagnostic Test (Pha) (Accu-Chek) 1 ea Q12 XX Last administered on 06/30/18at 09:00; Admin Dose 1 EA; Start 06/27/18 at 21:00 Ondansetron HCl 16 mg/ Dexamethasone 20 mg/Dextrose 63 ml @ 252 mls/hr PRE- MEDICATION IV Last administered on 06/29/18at 21:42; Admin Dose 252 MLS/HR; Start 06/29/18 at 15:30; Stop 06/30/18 at 15:29 Diphenhydramine HCl (Benadryl) 25 mg PRE-MEDICATION IV Last administered on 06/29/18 22:09; Admin Dose 25 MG; Start 06/29/18 at 15:30; Stop 06/30/18 at 15:29 Diphenhydramine HCl (Benadryl) 25 mg Q6H PRN IV ALLERGIC REACTION; Start 06/29/18 at 11:00 Dexamethasone 20 mg/Dextrose 55 ml @ 252 mls/hr Q6H PRN IVPB ALLERGIC REACTIO N; Start 06/29/18 at 11:00 Fluorouracil 1812 mg/Dextrose 1,036.24 ml @ 45.054 mls/hr Q23H IV Last administered on 06/30/18 05:07; Admin Dose 45.054 MLS/HR; Start 06/29/18 at 18:30; Stop 07/01/18 at 16:29 Potassium Phosphate 7.5 mm/ Sodium Chloride 252.5 ml @ 63.125 mls/ hr ONCE IV ; Start 06/30/18 at 12:30; Stop 06/30/18 at 16:29 VTE Prophylaxis Risk score (from Nsg)>0 risk: 7 SCD applied (from Ns): No SCD contraindication: other Lines/Catheters IV Catheter Type: Ramsey in Place: No Assessment/Plan Hospital Course Subjective Patient doing ok, no significant changes, undergoing chemo Objective Physical exam General: Patient is laying in bed and answers questions appropriately Mentation: Patient is alert and oriented 4, Head: Normocephalic atraumatic Eyes: EOMI, pupils reactive to light Neck: Supple, nontender, midline Respiratory: Clear to auscultation bilaterally Cardiovascular: regular rate, no obvious murmurs Gastrointestinal: non-tender to palpation, bowel sounds heard. Neurological: Moves all extremities spontaneously Skin: No new skin lesions Assessment/Plan 1. Nausea with vomiting - Persists - Would like Jtube after initiation of chemo if she still cannot tolerate PO intake - dietary for TPN recommendations - also most likely secondary to gastric outlet obstruction - GI and Surgery on board and appreciate recommendations 2. Partial obstructive gastric outlet - Surgery on board and appreciate recommendations. still with N/V but would like to hold off on Jtube for now - s/p placement of stent by GI - CT scan showing gastric thickening and emphysematous gastritis concerning for cancer vs necrosis with likely Gastric outlet obstruction, ovarian mass, possible abscess, etc. 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 on chemo now - Patient's prior oncologist is Dr Mae at [facility]. 4. JAMAL - resolved 5. PUD - GI on board - PPI 6. Constipation - bowel regimen as tolerated 7. Disposition -on chemo ALYX HENDRIX Jun 30, 2018 12:23
[2018-06-30] MEDS: morphine 2 MG INJ IV PRN ×3 (12:25→23:08)
[2018-06-30] MEDS ORDERED: POTASSIUM PHOSPHATE 7.5 MM in SOD CHLORIDE 0.9% 250 ML IV SCH (12:30)
[2018-06-30] MEDS: FAT EMULSION 20% 250 ML IV SCH (14:50)
[2018-06-30] MEDS ORDERED: ONDANSETRON INJ 16 MG, DEXAMETHASONE 4 MG/ML 20 MG in DEXTROSE 5% 50 ML IV SCH (18:00)
[2018-06-30] MEDS ORDERED: DIPHENHYDRAMINE 50 MG INJ IV SCH (18:00)
[2018-06-30] MEDS: ONDANSETRON 4 MG INJ IV PRN (23:08)
[2018-07-01] VITALS (8 sets, daily range): BP systolic 119–131; BP diastolic 62–75; PULSE 88–107; RESP 18–20
[2018-07-01] MEDS: METOCLOPRAMIDE 10 MG INJ IV SCH ×4 (00:21→17:49)
[2018-07-01] MEDS: TPN 1,000 ML IV SCH ×2 (02:00→17:49)
[2018-07-01] MEDS: PANTOPRAZOLE 40 MG INJ IV SCH ×2 (05:25→17:49)
[2018-07-01] MEDS: morphine 2 MG INJ IV PRN ×3 (05:27→22:05)
[2018-07-01] MEDS: FLUOROURACIL IV SCH (06:46)
[2018-07-01] MEDS: DEXTROSE 5% IV SCH (06:46)
[2018-07-01] MEDS: METHYLNALTREXONE 12 MG/0.6 ML VIAL SC SCH (10:53)
[2018-07-01] MEDS: BISACODYL 10 MG SUPP PR PRN (10:53)
[2018-07-01] MEDS: ACCU-CHEK XX SCH ×2 (10:53→21:15)
--- NOTE | 2018-07-01 12:03 | PN ---
Date/Time of Note Date/Time of Note DATE: 07/01/18 TIME: 12:03 Objective Vitals Vital Signs Date Temp Pulse Resp B/P (MAP) Pulse Ox O2 O2 Flow FiO2 Time Delivery Rate 07/01/18 91 20 123/72 97 11:37 (89) 07/01/18 97.2 07:52 07/01/18 Room Air 00:00 Intake and Output 06/30/18 06/30/18 07/01/18 1515:00 23:00 07:00 IntakeIntake Total 468.75 ml 1203.3 ml 1769.24 ml OutputOutput Total 900 ml 1010 ml 700 ml BalanceBalance -431.25 ml 193.3 ml 1069.24 ml Results Result Diagram: 06/28/18 0426 07/01/18 0450 Medications Medications Current Medications IV Flush (NS 3 ml) 3 ml PER PROTOCOL IV ; Start 06/10/18 at 18:00 Ondansetron HCl (Zofran Inj) 4 mg Q6H PRN IV NAUSEA/VOMITING Last administered on 06/30/18at 23:08; Admin Dose 4 MG; Start 06/10/18 at 18:00 Lorazepam (Ativan) 1 mg Q4H PRN IV anxiety Last administered on 06/12/18at 15:28; Admin Dose 1 MG; Start 06/11/18 at 21:30 IV Flush (NS 10 ml) 10 ml PRN PRN IV IV PROTOCOL; Start 06/16/18 at 17:00 Methylnaltrexone [place] (Relistor) 12 mg Q48H SC ; Start 06/17/18 at 08:30 Phenol (Chloraseptic Throat [place]) 2 spray Q2H PRN MT SORE THROAT Last a dministered on 06/17/18at 21:23; Admin Dose 2 SPRAY; Start 06/17/18 at 11:30 Pantoprazole (Protonix Iv) 40 mg BID@06,18 IV Last administered on 07/01/18at 05:25; Admin Dose 40 MG; Start 06/20/18 at 08:30 Morphine Sulfate (morphine) 2 mg Q4H PRN IV SEVERE PAIN LEVEL 7-10 Last administered on 07/01/18at 05:27; Admin Dose 2 MG; Start 06/21/18 at 21:00 Metoclopramide HCl (Reglan) 10 mg Q6 IV Last administered on 07/01/18at 11:37; Admin Dose 10 MG; Start 06/22/18 at 12:00 Bisacodyl (Dulcolax Supp) 10 mg DAILY PRN [place] CONSTIPATION Last administered on 07/01/18 10:53; Admin Dose 10 MG; Start 06/25/18 at 12:00 Total Parenteral Nutrition 1,000 ml @ 60 mls/hr [id number] IV Last administered on 07/01/18at 02:00; Admin Dose 60 MLS/HR; Start 06/26/18 at 20:00 Fat Emulsion Intravenous 250 ml @ 10.417 mls/ hr Q24H IV Last administered on 06/30/18at 14:50; Admin Dose 10.417 MLS/HR; Start 06/27/18 at 16:00 Diagnostic Test (Pha) (Accu-Chek) 1 ea Q12 XX Last administered on 06/30/18at 21:35; Admin Dose 1 EA; Start 06/27/18 at 21:00 Diphenhydramine HCl (Benadryl) 25 mg Q6H PRN IV ALLERGIC REACTION; Start at 11:00 Dexamethasone 20 mg/Dextrose 55 ml @ 252 mls/hr Q6H PRN IVPB ALLERGIC REACTION; Start 06/29/18 at 11:00 Fluorouracil 1812 mg/Dextrose 1,036.24 ml @ 45.054 mls/hr Q23H IV Last admini stered on 07/01/18at 06:46; Admin Dose 45.054 MLS/HR; Start 06/29/18 at 18:30; Stop 07/01/18 at 16:29 VTE Prophylaxis Risk score (from Nsg)>0 risk: 5 SCD applied (from Nsg): Yes Lines/Catheters IV Catheter Type: Ramsey in Place: No Assessment/Plan Hospital Course Subjective Patient doing ok, no significant changes, undergoing chemo Objective Physical exam General: Patient is laying in bed and answers questions appropriately Mentation: Patient is alert and oriented 4, Head: Normocephalic atraumatic Eyes: EOMI, pupils reactive to light Neck: Supple, nontender, midline Respiratory: Clear to auscultation bilaterally Cardiovascular: regular rate, no obvious murmurs Gastrointestinal: non-tender to palpation, bowel sounds heard. Neurological: Moves all extremities spontaneously Skin: No new skin lesions Assessment/Plan 1. Nausea with vomiting - Persists - pt will consider Jtube after initiation of chemo if she still cannot tolerate PO intake - dietary for TPN recommendations - also most likely secondary to gastric outlet obstruction - GI and Surgery on board and appreciate recommendations 2. Partial obstructive gastric outlet - Surgery on board and appreciate recommendations. still with N/V but would like to hold off on Jtube for now - s/p placement of stent by GI - CT scan showing gastric thickening and emphysematous gastritis concerning for cancer vs necrosis with likely Gastric outlet obstruction, ovarian mass, possible abscess, etc. 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 on chemo now - Patient's prior oncologist is Dr Mae at [facility]. 4. JAMAL - resolved 5. PUD - GI on board - PPI 6. Constipation - bowel regimen as tolerated 7. Disposition -on chemo ALYX HENDRIX Jul 01, 2018 12:03
--- NOTE | 2018-07-01 12:24 | CONS ---
Assessment/Plan Assessment/Plan Hospital Course (Demo Recall) unfortunate 47 yo with metastatic gastric ca. admitted with N/V/abdo pain. s/p EGD and metal stent placed across the malignant stricture of the antrum of the stomach and also first part of the duodenum. #gastric ca -biopsy from EGD and reports from outside facilities are c/w gastric ca signet ring features. unclear why pt thought it was ovarian ca, have call out to Dr Mcdonald's office as well to update him -I discussed chemo with pt including schedule which is every 2 weeks as an outpt after cycle 1. side effects include but not limited to nausea, fatigue, myelosuppression, infection, neuropathy, cold sensitivity, mucositis, she verbalized understanding and consented to start -will request her 2 testing and PDL1 to be added to path to see if she is a candidate for herceptin along with FOLFOX -needs mediport prior to discharge, she has PICC now -CHEMO STARTED 06/29/18, THIS IS DAY #2/2 TOLERATING WELL, NAUSEA DECREASED -Dr Suarez also informed me she has motility issues due to tumor infiltration of stomach and stent will not allow her to eat. have communicated with Dr Calle if maybe a j tube can help. will reassess in a few days -once she has finished chemo and decision made as to whether to insert j tube she is ok to go from oncology perspective with close f/u as out pt within 1 week of discharge Thank you Dr Lee and Dr Landeros for allowing us to participate in the care of this pleasant pt Consultation Date/Type/Reason Admit Date/Time Jun 10, 2018 at 18:42 Initial Consult Date 06/11/18 Requesting Provider: ELMER LEE MD Date/Time of Note DATE: 07/01/18 TIME: 12:24 24 HR Interval Summary Free Text/Dictation some nausea but improved since chemo Exam/Review of Systems Exam Vitals Vital Signs Date Temp Pulse Resp B/P (MAP) Pulse Ox O2 O2 Flow FiO2 Time Delivery Rate 07/01/18 91 20 123/72 97 11:37 (89) 07/01/18 97.2 07:52 07/01/18 Room Air 00:00 Intake and Output 06/30/18 06/30/18 07/01/18 1515:00 23:00 07:00 IntakeIntake Total 468.75 ml 1203.3 ml 1769.24 ml OutputOutput Total 900 ml 1010 ml 700 ml BalanceBalance -431.25 ml 193.3 ml 1069.24 ml Constitutional: frail Psych: no complaints, nl mood/affect Head: normocephalic, atraumatic Eyes: nl conjunctiva, EOMI, nl lids, nl sclera, PERRL Extremities: normal pulses Skin: nl turgor, rash or lesions Results Result Diagram: 06/28/18 0426 07/01/18 0450 Results 24hrs Laboratory Tests Test 06/30/18 21:33 07/01/18 04:50 07/01/18 10:55 Bedside Glucose 163 223 H Sodium Level 129 L Potassium Level 4.5 Chloride Level 97 Carbon Dioxide Level 20 L Anion Gap 12 Blood Urea Nitrogen 45 H Creatinine 0.64 Est Glomerular Filtrat Rate mL/min > 60 Glucose Level 164 Calcium Level 9.5 Phosphorus Level 4.2 Magnesium Level 2.1 Medications Medication Current Medications IV Flush (NS 3 ml) 3 ml PER PROTOCOL IV ; Start 06/10/18 at 18:00 Ondansetron HCl (Zofran Inj) 4 mg Q6H PRN IV NAUSEA/VOMITING Last administered on 06/30/18at 23:08; Admin Dose 4 MG; Start 06/10/18 at 18:00 Lorazepam (Ativan) 1 mg Q4H PRN IV anxiety Last administered on 06/12/18at 15:28; Admin Dose 1 MG; Start 06/11/18 at 21:30 IV Flush (NS 10 ml) 10 ml PRN PRN IV IV PROTOCOL; Start 06/16/18 at 17:00 Methylnaltrexone [place] (Relistor) 12 mg Q48H SC ; Start 06/17/18 at 08:30 Phenol (Chloraseptic Throat [place]) 2 spray Q2H PRN MT SORE THROAT Last administered on 06/17/18at 21:23; Admin Dose 2 SPRAY; Start 06/17/18 at 11:30 Pantoprazole (Protonix Iv) 40 mg BID@06,18 IV Last administered on 07/01/18at 05:25; Admin Dose 40 MG; Start 06/20/18 at 08:30 Morphine Sulfate (morphine) 2 mg Q4H PRN IV SEVERE PAIN LEVEL 7-10 Last administered on 07/01/18 05:27; Admin Dose 2 MG; Start 06/21/18 at 21:00 Metoclopramide HCl (Reglan) 10 mg Q6 IV Last administered on 07/01/18 11:37; A dmin Dose 10 MG; Start 06/22/18 at 12:00 Bisacodyl (Dulcolax Supp) 10 mg DAILY PRN [place] CONSTIPATION Last administered on 07/01/18 10:53; Admin Dose 10 MG; Start 06/25/18 at 12:00 Total Parenteral Nutrition 1,000 ml @ 60 mls/hr [id number] IV Last administered on 07/01/18 02:00; Admin Dose 60 MLS/HR; Start 06/26/18 at 20:00 Fat Emulsion Intravenous 250 ml @ 10.417 mls/ hr Q24H IV Last administered on 06/30/18 14:50; Admin Dose 10.417 MLS/HR; Start 06/27/18 at 16:00 Diagnostic Test (Pha) (Accu-Chek) 1 ea Q12 XX Last administered on 06/30/18at 21:35; Admin Dose 1 EA; Start 06/27/18 at 21:00 Diphenhydramine HCl (Benadryl) 25 mg Q6H PRN IV ALLERGIC REACTION; Start 06/29/18 at 11:00 Dexamethasone 20 mg/Dextrose 55 ml @ 252 mls/hr Q6H PRN IVPB ALLERGIC REACTION; Start 06/29/18 at 11:00 Fluorouracil 1812 mg/Dextrose 1,036.24 ml @ 45.054 mls/hr Q23H IV Last administered on 07/01/18 06:46; Admin Dose 45.054 MLS/HR; Start 06/29/18 at 18:30; Stop 07/01/18 at 16:29 NICK VARELA Jul 01, 2018 12:24
--- NOTE | 2018-07-01 15:23 | CONS ---
DATE OF ADMISSION: 06/10/2018 DATE OF CONSULTATION: 07/01/2018 TYPE OF CONSULTATION: Nephrology. REASON FOR CONSULTATION: Hyponatremia. PHYSICIAN REQUESTING CONSULT: Alyx Carpenter MD HISTORY OF PRESENT ILLNESS: This is a 47-year-old female, who presented to [facility] with complaints of nausea, vomiting. The patient on admission was told she was diagnosed with ov bryanna cancer and was sent for prior chemotherapy. On admission, the patient had a CT scan which show ed findings consistent with possible gastric carcinoma. The patient underwent EGD and biopsy. The p athology is consistent with gastric cancer. 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 The patient was then started on chemotherapy, FOLFOX and has received 4 doses during the hospital course. This was emergently started given the patient is symptomatic an d there was progression of underlying disease. In terms of patient's renal history, the patient on admission had acute kidney injury which improved with IV hydration. Also in terms of the patient's sodium history was noted to be normal on treatment until approximately 2 days ago when sodium levels decreased to 129 mEq per liter. During that time, the patient has been receiving copious amount of hypotonic fluid per regimen of FOLFOX chemotherapy. The patient herself has been drinking minimal water. The patient also had an episode of nausea. T here has been no seizure activity. PAST MEDICAL HISTORY: History of gastric cancer, recently diagnosed, peptic ulcer disease. FAMILY HISTORY: No family history of kidney disease. SOCIAL HISTORY: Does not drink, smoke or do drugs. PAST SURGICAL HISTORY: Status post EGD and biopsy, history of partial gastrectomy. ALLERGIES: NO KNOWN DRUG ALLERGIES. REVIEW OF SYSTEMS: A 14-point review of systems was conducted. Pertinent positives as stated in the HPI, otherwise negative. PHYSICAL EXAMINATION: VITAL SIGNS: Blood pressure is 123/72, respirations 20, pulse 91, temperature 97.2. HEENT: Head is normocephalic. NECK: Supple. HEART: Regular rate. LUNGS: Show diminished breath sounds at the base. ABDOMEN: Soft, nontender to palpation without rebound or guarding. EXTREMITIES: Negative for clubbing, cyanosis. No edema. DERMATOLOGIC: No rashes. MUSCULOSKELETAL: No joint effusion. NEUROLOGIC: No change in exam. LABORATORY DATA: Show sodium 129, potassium 4.7, glucose 223. White count 6.8, hemoglobin 9.1, plat elet count 326. IMAGING STUDIES: Reviewed. ASSESSMENT AND PLAN: This is a 47-year-old female who presents with: 1. Hyponatremia, acute. Etiology may be multifactorial secondary to hypotonic fluid, hypoglycemia a nd possible underlying syndrome of inappropriate antidiuretic hormone. The patient does have underly ing gastric cancer; however has been receiving copious amounts of hypotonic fluid in the setting of c hemotherapy regimen. Plan at this point is to check a urine osmolality. We will check urine sodium. We will check a.m. cortisol level. We will check TSH level. The patient's hypotonic fluids will b e discontinued today. We will recommend a free water restriction no more than 800 mL daily. We will continue to monitor serial sodium levels. 2. Acute kidney injury. Etiology is secondary to hemodynamics. The patient's renal function has im proved. We will continue to monitor closely. Continue supportive care, renally dose all meds. Plea se note the patient has underlying azotemia which is likely due to hypercatabolic state and decreased oral intake. The patient has been placed on TPN. 3. Anemia. Monitor hemoglobin and hematocrit levels. 4. Mineral bone disorder. Monitor calcium and phosphorus levels. 5. Nausea, vomiting. Etiology may be secondary to chemotherapy. We will continue to monitor. Cont inue antiemetics. 6. Gastric outlet obstruction. The patient is status post EGD, status post stent placement. We norm l continue medical management. Continue chemotherapy. Continue Reglan. 7. Metastatic gastric cancer. The patient will continue chemotherapy. We will continue current man agement. Follow up with oncology. 8. Nutrition. The patient is on TPN. We will continue. Thank you, Dr. Carpenter, for this interesting consult. It will be a pleasure to follow patient with you t hrgennyout the hospital course. Dictated By: BRAYDEN RED DO NR/NTS Conf#: [id number] DID#: [id number] CC: DARVIN BOURNE MD; ELMER CAVAZOS MD; ALYX CARPENTER MD;*EndCC*
[2018-07-01] MEDS: FAT EMULSION 20% 250 ML IV SCH (16:07)
--- NOTE | 2018-07-01 16:18 | PN ---
Date/Time of Note Date/Time of Note DATE: 07/01/18 TIME: 16:15 Assessment/Plan Lines/Catheters [facility] Ramsey in Place (from Nrs): No Assessment/Plan Chief Complaint/Hosp Course 1. CT with emphysematous gastritis, portal venous air, thickening of pylorus and duodenal bulb, thick-walled gallbladder, mesenteric inflammation in the upper abdomen with free fluid. Repeat CT noted with improvement of emphysematous gastritis; EGD w stent placement 06/21/18; 04/06/19 status post gastrojejunostomy, resection of right ovarian mass and partial omentectomy at [facility] by Nausea and vomiting continuing to improve with longer periods without vomiting. Patient reconsidering J-tube. Continue with oral nutrition, TPN and chemo> -Continue close monitoring> if unable to tolerate liquid diet after chemo, possible J-tube placement -Liquid diet as tolerated -Per gi>antiemetics/motility agents -Supportive measures -Ambulate 2. 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 Previous history of perforated duodenal ulcer and obstruction favors site of primary tumor in the upper GI tract. -Per oncology> chemo cycle 1 3. Anemia -Monitor 4. Constipation: Improved -Optimize bowel regimen as able 5. Nausea and vomiting: Improved -as above 6. Poor nutrition: Oral and TPN -As above Thank you. Patient seen and examined in collaboration with Dr. Ag Calle. Subjective 24 Hr Interval Summary Some abdominal pain intermittently. Nausea improved. Reconsidering J-tube. No fevers, chills, sob, congested cough, cp, palpitations, cross, dizziness, diarrhea, dysuria. Exam/Review of Systems Vital Signs Vitals Vital Signs Date Temp Pulse Resp B/P (MAP) Pulse Ox O2 O2 Flow FiO2 Time Delivery Rate 07/01/18 97.9 93 19 129/69 98 14:09 (89) 07/01/18 Room Air 00:00 Intake and Output 06/30/18 06/30/18 07/01/18 1515:00 23:00 07:00 IntakeIntake Total 468.75 ml 1203.3 ml 1769.24 ml OutputOutput Total 900 ml 1010 ml 700 ml BalanceBalance -431.25 ml 193.3 ml 1069.24 ml Exam Free Text/Dictation Constitutional: alert, oriented, frail Psych: Normal mood Head: normocephalic, atraumatic Eyes: nl conjunctiva, EOMI, PERRL; No icteric ENMT: nl external ears & nose, nl lips & teeth, mucosa pink and moist Neck: supple, non-tender; No jvd Respiratory: normal air movement; No congested cough, No labored breathing, No wheezing Cardiovascular: regular rate and rhythm; No edema Gastrointestinal: soft, tender (moderate), minimally distended No rebound or guarding Musculoskeletal: nl extremities to inspection; No joint tenderness Extremities: normal pulses; No calf tenderness, No edema Neurological: nl mental status, nl speech, nl strength Skin: nl turgor; No rash or lesions, No diaphoresis Lymph: nl lymph nodes Results Result Diagram: 06/28/18 0426 07/01/18 0450 IVELISSE CEJA NP Jul 01, 2018 16:18
[2018-07-02] VITALS (7 sets, daily range): BP systolic 109–130; BP diastolic 53–95; PULSE 97–107; RESP 16–18
[2018-07-02] MEDS: METOCLOPRAMIDE 10 MG INJ IV SCH ×4 (00:26→18:00)
[2018-07-02] MEDS: morphine 2 MG INJ IV PRN ×3 (05:43→21:17)
[2018-07-02] MEDS: PANTOPRAZOLE 40 MG INJ IV SCH ×2 (05:43→17:59)
--- NOTE | 2018-07-02 08:46 | PN ---
Date/Time of Note Date/Time of Note DATE: 07/02/18 TIME: 08:45 Assessment/Plan VTE Prophylaxis Risk score (from Nsg)>0 risk: 7 SCD applied (from Ns): No SCD contraindicated: other Pharmacological prophylaxis: other Lines/Catheters IV Catheter Type (from Nrs): PICC Line Central line still needed: No Urinary Cath still in place: No Assessment/Plan Hospital Course renal follow up all noted no significant event overnight d/w DR Odell PHYSICAL EXAMINATION: HEENT: Head is normocephalic. NECK: Supple. HEART: Regular rate. LUNGS: Show diminished breath sounds at the base. ABDOMEN: Soft, nontender to palpation without rebound or guarding. EXTREMITIES: Negative for clubbing, cyanosis. No edema. DERMATOLOGIC: No rashes. MUSCULOSKELETAL: No joint effusion. NEUROLOGIC: No change in exam. IMAGING STUDIES: Reviewed. ASSESSMENT AND PLAN: This is a 47-year-old female who presents with: 1. Hyponatremia, acute. Etiology may be multifactorial secondary to hypotonic fluid, hypoglycemia and possible underlying syndrome of inappropriate antidiuretic hormone. The patient does have underlying gastric cancer; however has been receiving copious amounts of hypotonic fluid in the setting of chemotherapy regimen. TPN formula reviewed (no change) 2. Acute kidney injury. Etiology is secondary to hemodynamics. The patient's renal function has improved. We will continue to monitor closely. Continue supportive care, renally dose all meds. Please note the patient has underlying azotemia which is likely due to hypercatabolic state and decreased oral intake. The patient has been placed on TPN. 3. Anemia. Monitor hemoglobin and hematocrit levels. 4. Mineral bone disorder. Monitor calcium and phosphorus levels. 5. Nausea, vomiting. Etiology may be secondary to chemotherapy. We will continue to monitor. Continue antiemetics. 6. Gastric outlet obstruction. The patient is status post EGD, status post stent placement. We will continue medical management. Continue chemotherapy. Continue Reglan. 7. Metastatic gastric cancer. The patient will continue chemotherapy. We will continue current management. Follow up with oncology. 8. Nutrition. The patient is on TPN. We will continue. Result Diagram: 07/02/18 0456 07/02/18 0456 Results 24hrs Laboratory Tests Test 07/01/18 10:55 07/01/18 12:00 07/01/18 21:06 07/02/18 04:56 Bedside Glucose 223 H 179 Urine Color YELLOW Urine Clarity CLEAR Urine pH 6.0 Urine Specific [place] 1.021 Urine Ketones NEGATIVE Urine Nitrite NEGATIVE Urine Bilirubin NEGATIVE Urine Urobilinogen NEGATIVE Urine Leukocyte Esterase NEGATIVE Urine Hemoglobin NEGATIVE Urine Osmolality 728 Urine Random Creatinine 62.31 Urine Random Sodium < 13 L Urine Glucose NEGATIVE Urine Total Protein 31.0 H White Blood Count 6.3 Red Blood Count 3.90 L Hemoglobin 10.3 L Hematocrit 30.9 L Mean Corpuscular Volume 79.2 L Mean Corpuscular 26.4 L Hemoglobin Mean Corpuscular 33.3 Hemoglobin Concent Red Cell Distribution 18.7 H Width Platelet Count 325 Mean Platelet Volume 10.4 Immature Granulocytes % 0.500 H Neutrophils % 67.8 Lymphocytes % 25.2 Monocytes % 5.5 Eosinophils % 0.8 Basophils % 0.2 Nucleated Red Blood 0.0 Cells % Immature Granulocytes # 0.030 Neutrophils # 4.3 Lymphocytes # 1.6 Monocytes # 0.4 Eosinophils # 0.1 Basophils # 0.0 Nucleated Red Blood 0.0 Cells # Sodium Level 130 L Potassium Level 4.2 Chloride Level 94 L Carbon Dioxide Level 23 Anion Gap 13 Blood Urea Nitrogen 32 #H Creatinine 0.61 Est Glomerular Filtrat > 60 Rate mL/min Glucose Level 141 Calcium Level 9.2 Phosphorus Level 3.4 Magnesium Level 2.1 Test 07/02/18 08:33 Bedside Glucose 162 Exam/Review of Systems Exam Vitals Vital Signs Date Temp Pulse Resp B/P (MAP) Pulse Ox O2 O2 Flow FiO2 Time Delivery Rate 07/02/18 97.9 99 18 117/66 98 Room Air 08:05 (83) Intake and Output 07/01/18 07/01/18 07/02/18 1414:59 22:59 06:59 IntakeIntake Total 340 ml 1480 ml 1560 ml OutputOutput Total 1 ml 300 ml 430 ml BalanceBalance 339 ml 1180 ml 1130 ml Results Results 24hrs Laboratory Tests Test 07/01/18 10:55 07/01/18 12:00 07/01/18 21:06 07/02/18 04:56 Bedside Glucose 223 H 179 Urine Color YELLOW Urine Clarity CLEAR Urine pH 6.0 Urine Specific [place] 1.021 Urine Ketones NEGATIVE Urine Nitrite NEGATIVE Urine Bilirubin NEGATIVE Urine Urobilinogen NEGATIVE Urine Leukocyte Esterase NEGATIVE Urine Hemoglobin NEGATIVE Urine Osmolality 728 Urine Random Creatinine 62.31 Urine Random Sodium < 13 L Urine Glucose NEGATIVE Urine Total Protein 31.0 H White Blood Count 6.3 Red Blood Count 3.90 L Hemoglobin 10.3 L Hematocrit 30.9 L Mean Corpuscular Volume 79.2 L Mean Corpuscular 26.4 L Hemoglobin Mean Corpuscular 33.3 Hemoglobin Concent Red Cell Distribution 18.7 H Width Platelet Count 325 Mean Platelet Volume 10.4 Immature Granulocytes % 0.500 H Neutrophils % 67.8 Lymphocytes % 25.2 Monocytes % 5.5 Eosinophils % 0.8 Basophils % 0.2 Nucleated Red Blood 0.0 Cells % Immature Granulocytes # 0.030 Neutrophils # 4.3 Lymphocytes # 1.6 Monocytes # 0.4 Eosinophils # 0.1 Basophils # 0.0 Nucleated Red Blood 0.0 Cells # Sodium Level 130 L Potassium Level 4.2 Chloride Level 94 L Carbon Dioxide Level 23 Anion Gap 13 Blood Urea Nitrogen 32 #H Creatinine 0.61 Est Glomerular Filtrat > 60 Rate mL/min Glucose Level 141 Calcium Level 9.2 Phosphorus Level 3.4 Magnesium Level 2.1 Test 07/02/18 08:33 Bedside Glucose 162 Medications Medication Current Medications IV Flush (NS 3 ml) 3 ml PER PROTOCOL IV ; Start 06/10/18 at 18:00 Ondansetron HCl (Zofran Inj) 4 mg Q6H PRN IV NAUSEA/VOMITING Last administered on 06/30/18at 23:08; Admin Dose 4 MG; Start 06/10/18 at 18:00 Lorazepam (Ativan) 1 mg Q4H PRN IV anxiety Last administered on 06/12/18at 15:28; Admin Dose 1 MG; Start 06/11/18 at 21:30 IV Flush (NS 10 ml) 10 ml PRN PRN IV IV PROTOCOL; Start 06/16/18 at 17:00 Methylnaltrexone [place] (Relistor) 12 mg Q48H SC ; Start 06/17/18 at 08:30 Phenol (Chloraseptic Throat [place]) 2 spray Q2H PRN [place] SORE THROAT Last administered on 06/17/18at 21:23; Admin Dose 2 SPRAY; Start 06/17/18 at 11:30 Pantoprazole (Protonix Iv) 40 mg BID@06,18 IV Last administered on 07/02/18at 05:43; Admin Dose 40 MG; Start 06/20/18 at 08:30 Morphine Sulfate (morphine) 2 mg Q4H PRN IV SEVERE PAIN LEVEL 7-10 Last administered on 07/02/18 05:43; Admin Dose 2 MG; Start 06/21/18 at 21:00 Metoclopramide HCl (Reglan) 10 mg Q6 IV Last administered on 07/02/18 05:43; Admin Dose 10 MG; Start 06/22/18 at 12:00 Bisacodyl (Dulcolax Supp) 10 mg DAILY PRN [place] CONSTIPATION Last administered on 07/01/18 10:53; Admin Dose 10 MG; Start 06/25/18 at 12:00 Total Parenteral Nutrition 1,000 ml @ 60 mls/hr [id number] IV Last administered on 07/01/18 17:49; Admin Dose 60 MLS/HR; Start 06/26/18 at 20:00 Fat Emulsion Intravenous 250 ml @ 10.417 mls/ hr Q24H IV Last administered on 07/01/18 16:07; Admin Dose 10.417 MLS/HR; Start 06/27/18 at 16:00 Diagnostic Test (Pha) (Accu-Chek) 1 ea Q12 XX Last administered on 07/01/18 21:15; Admin Dose 1 EA; Start 06/27/18 at 21:00 Diphenhydramine HCl (Benadryl) 25 mg Q6H PRN IV ALLERGIC REACTION; Start 06/29/18 at 11:00 Dexamethasone 20 mg/Dextrose 55 ml @ 252 mls/hr Q6H PRN IVPB ALLERGIC REACTION; Start 06/29/18 at 11:00 MARTY BOURNE DO Jul 02, 2018 08:46
[2018-07-02] MEDS: ACCU-CHEK XX SCH ×2 (09:00→21:22)
[2018-07-02] MEDS: TPN 1,000 ML IV SCH (10:51)
--- NOTE | 2018-07-02 10:59 | PN ---
Date/Time of Note Date/Time of Note DATE: 07/02/18 TIME: 10:58 Objective Vitals Vital Signs Date Temp Pulse Resp B/P (MAP) Pulse Ox O2 O2 Flow FiO2 Time Delivery Rate 07/02/18 97.3 99 114/64 08:45 (81) 07/02/18 18 98 Room Air 08:05 Intake and Output 07/01/18 07/01/18 07/02/18 1515:00 23:00 07:00 IntakeIntake Total 340 ml 1480 ml 1560 ml OutputOutput Total 1 ml 300 ml 430 ml BalanceBalance 339 ml 1180 ml 1130 ml Results Result Diagram: 07/02/18 0456 07/02/18 0456 Medications Medications Current Medications IV Flush (NS 3 ml) 3 ml PER PROTOCOL IV ; Start 06/10/18 at 18:00 Ondansetron HCl (Zofran Inj) 4 mg Q6H PRN IV NAUSEA/VOMITING Last administered on 06/30/18at 23:08; Admin Dose 4 MG; Start 06/10/18 at 18:00 Lorazepam (Ativan) 1 mg Q4H PRN IV anxiety Last administered on 06/12/18 15:28; Admin Dose 1 MG; Start 06/11/18 at 21:30 IV Flush (NS 10 ml) 10 ml PRN PRN IV IV PROTOCOL; Start 06/16/18 at 17:00 Methylnaltrexone [place] (Relistor) 12 mg Q48H SC ; Start 06/17/18 at 08:30 Phenol (Chloraseptic Throat [place]) 2 spray Q2H PRN MT SORE THROAT Last administered on 06/17/18at 21:23; Admin Dose 2 SPRAY; Start 06/17/18 at 11:30 Pantoprazole (Protonix Iv) 40 mg BID@06,18 IV Last administered on 07/02/18 05:43; Admin Dose 40 MG; Start 06/20/18 at 08:30 Morphine Sulfate (morphine) 2 mg Q4H PRN IV SEVERE PAIN LEVEL 7-10 Last administered on 07/02/18 05:43; Admin Dose 2 MG; Start 06/21/18 at 21:00 Metoclopramide HCl (Reglan) 10 mg Q6 IV Last administered on 07/02/18 05:43; Admin Dose 10 MG; Start 06/22/18 at 12:00 Bisacodyl (Dulcolax Supp) 10 mg DAILY PRN [place] CONSTIPATION Last administered on 07/01/18 10:53; Admin Dose 10 MG; Start 06/25/18 at 12:00 Total Parenteral Nutrition 1,000 ml @ 60 mls/hr [id number] IV Last administered on 07/02/18at 10:51; Admin Dose 60 MLS/HR; Start 06/26/18 at 20:00 Fat Emulsion Intravenous 250 ml @ 10.417 mls/ hr Q24H IV Last administered on 07/01/18at 16:07; Admin Dose 10.417 MLS/HR; Start 06/27/18 at 16:00 Diagnostic Test (Pha) (Accu-Chek) 1 ea Q12 XX Last administered on 07/02/18at 09:00; Admin Dose 1 EA; Start 06/27/18 at 21:00 Diphenhydramine HCl (Benadryl) 25 mg Q6H PRN IV ALLERGIC REACTION; Start 06/29/18 at 11:00 Dexamethasone 20 mg/Dextrose 55 ml @ 252 mls/hr Q6H PRN IVPB ALLERGIC REACTION; Start 06/29/18 at 11:00 VTE Prophylaxis Risk score (from Ns)>0 risk: 7 SCD applied (from Nsg): No SCD contraindication: other Lines/Catheters IV Catheter Type: Ramsey in Place: No Assessment/Plan Hospital Course Subjective Patient doing ok, no significant changes, finished chemo this am Objective Physical exam General: Patient is laying in bed and answers questions appropriately Mentation: Patient is alert and oriented 4, Head: Normocephalic atraumatic Eyes: EOMI, pupils reactive to light Neck: Supple, nontender, midline Respiratory: Clear to auscultation bilaterally Cardiovascular: regular rate, no obvious murmurs Gastrointestinal: non-tender to palpation, bowel sounds heard. Neurological: Moves all extremities spontaneously Skin: No new skin lesions Assessment/Plan 1. Nausea with vomiting - Persists - pt will consider Jtube after completion of chemo round 1 if she still cannot tolerate PO intake - dietary for TPN recommendations - also most likely secondary to gastric outlet obstruction - GI and Surgery on board and appreciate recommendations 2. Partial obstructive gastric outlet - Surgery on board and appreciate recommendations. still with N/V but would like to hold off on Jtube for now - s/p placement of stent by GI - CT scan showing gastric thickening and emphysematous gastritis concerning for cancer vs necrosis with likely Gastric outlet obstruction, ovarian mass, possible abscess, etc. 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 on chemo now - Patient's prior oncologist is Dr Mae at [facility]. but she wishes to follow up with Dr. Vick now. 4. JAMAL - resolved 5. PUD - GI on board - PPI 6. Constipation - bowel regimen as tolerated 7. Disposition -finished chemo this AM -will await if obstruction clears in the next 24-48 hrs, if not, will need to place J tube ALYX HENDRIX Jul 02, 2018 10:59
[2018-07-02] MEDS: FAT EMULSION 20% 250 ML IV SCH (16:08)
--- NOTE | 2018-07-02 18:11 | PN ---
Date/Time of Note Date/Time of Note DATE: 07/02/18 TIME: 18:09 Assessment/Plan Lines/Catheters IV Catheter Type (from [facility]): PICC Line Ramsey in Place (from Nrs): No Assessment/Plan Chief Complaint/Hosp Course 1. CT with emphysematous gastritis, portal venous air, thickening of pylorus and duodenal bulb, thick-walled gallbladder, mesenteric inflammation in the u pper abdomen with free fluid. Repeat CT noted with improvement of emphysematous gastritis; EGD w stent placement 06/21/18; 04/06/19 status post gastrojejunostomy, resection of right ovarian mass and partial omentectomy at [facility] by Nausea and vomiting improved with longer periods without vomiting. Patient agreeable for J-tube. Will need to schedule. Continue with oral nutrition, TPN and chemo -We will schedule J-tube placement -Liquid diet as tolerated -Per gi>antiemetics/motility agents -Supportive measures -Ambulate 2. 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 Previous history of perforated duodenal ulcer and obstruction favors site of primary tumor in the upper GI tract. -Per oncology> chemo cycle 1 3. Anemia -Monitor 4. Constipation: Improved -Optimize bowel regimen as able 5. Nausea and vomiting: Improved -as above 6. Poor nutrition: Oral and TPN -As above Thank you. Patient seen and examined in collaboration with Dr. Ag Calle. Subjective 24 Hr Interval Summary Feels better today. More energy. Now agreeable for J-tube placement. Continues to have nausea and vomiting but improved. No fevers, chills, sob, congested cough, cp, palpitations, cross, dizziness, nausea, vomiting, diarrhea, dysuria. Exam/Review of Systems Vital Signs Vitals Vital Signs Date Temp Pulse Resp B/P (MAP) Pulse Ox O2 O2 Flow FiO2 Time Delivery Rate 07/02/18 97.4 99 16 113/66 98 Room Air 13:37 (82) Intake and Output 07/01/18 07/01/18 07/02/18 1414:59 22:59 06:59 IntakeIntake Total 340 ml 1480 ml 1560 ml OutputOutput Total 1 ml 300 ml 430 ml BalanceBalance 339 ml 1180 ml 1130 ml Exam Free Text/Dictation Constitutional: alert, oriented, frail Psych: Normal mood Head: normocephalic, atraumatic Eyes: nl conjunctiva, EOMI, PERRL; No icteric ENMT: nl external ears & nose, nl lips & teeth, mucosa pink and moist Neck: supple, non-tender; No jvd Respiratory: normal air movement; No congested cough, No labored breathing, No wheezing Cardiovascular: regular rate and rhythm; No edema Gastrointestinal: soft, tender (minimal), minimally distended No rebound or guarding Musculoskeletal: nl extremities to inspection; No joint tenderness Extremities: normal pulses; No calf tenderness, No edema Neurological: nl mental status, nl speech, nl strength Skin: nl turgor; No rash or lesions, No diaphoresis Lymph: nl lymph nodes Results Result Diagram: 07/02/18 0456 07/02/18 0456 IVELISSE CEJA NP Jul 02, 2018 18:10
[2018-07-03 02:37] VITALS: BP 130/78; PULSE 103; RESP 18
[2018-07-03] MEDS: TPN 1,000 ML IV SCH ×2 (03:27→20:09)
[2018-07-03] MEDS: METOCLOPRAMIDE 10 MG INJ IV SCH ×5 (03:31→23:15)
[2018-07-03] MEDS: PANTOPRAZOLE 40 MG INJ IV SCH ×2 (06:12→17:32)
[2018-07-03 08:19] VITALS: BP 120/64; PULSE 105; RESP 18
[2018-07-03] MEDS: METHYLNALTREXONE 12 MG/0.6 ML VIAL SC SCH (08:30)
[2018-07-03] MEDS: ACCU-CHEK XX SCH ×2 (08:51→20:11)
--- NOTE | 2018-07-03 09:17 | PN ---
Date/Time of Note Date/Time of Note DATE: 07/03/18 TIME: 09:16 Assessment/Plan VTE Prophylaxis Risk score (from Nsg)>0 risk: 6 SCD applied (from Ns): No SCD contraindicated: other Pharmacological prophylaxis: other Lines/Catheters IV Catheter Type (from Nrs): PICC Line Central line still needed: Yes Urinary Cath still in place: No Assessment/Plan Hospital Course renal follow up all noted no significant event overnight d/w DR Odell PHYSICAL EXAMINATION: HEENT: Head is normocephalic. NECK: Supple. HEART: Regular rate. LUNGS: Show diminished breath sounds at the base. ABDOMEN: Soft, nontender to palpation without rebound or guarding. EXTREMITIES: Negative for clubbing, cyanosis. No edema. DERMATOLOGIC: No rashes. MUSCULOSKELETAL: No joint effusion. NEUROLOGIC: No change in exam. IMAGING STUDIES: Reviewed. ASSESSMENT AND PLAN: This is a 47-year-old female who presents with: 1. Hyponatremia, acute. Etiology may be multifactorial secondary to hypotonic fluid, hypoglycemia and possible underlying syndrome of inappropriate antidiuretic hormone. The patient does have underlying gastric cancer; however has been receiving copious amounts of hypotonic fluid in the setting of chemotherapy regimen. TPN formula reviewed (no change) 2. Acute kidney injury. Etiology is secondary to hemodynamics. The patient's renal function has improved. We will continue to monitor closely. Continue supportive care, renally dose all meds. Please note the patient has underlying azotemia which is likely due to hypercatabolic state and decreased oral intake. The patient has been placed on TPN. 3. Anemia. Monitor hemoglobin and hematocrit levels. 4. Mineral bone disorder. Monitor calcium and phosphorus levels. 5. Nausea, vomiting. Etiology may be secondary to chemotherapy. We will continue to monitor. Continue antiemetics. 6. Gastric outlet obstruction. The patient is status post EGD, status post stent placement. We will continue medical management. Continue chemotherapy. Continue Reglan. 7. Metastatic gastric cancer. The patient will continue chemotherapy. We will continue current management. Follow up with oncology. 8. Nutrition. The patient is on TPN. We will continue. Result Diagram: 07/03/18 0436 07/03/18 0436 Results 24hrs Laboratory Tests Test 07/02/18 21:22 07/03/18 04:36 07/03/18 08:51 Bedside Glucose 140 166 White Blood Count 5.1 Red Blood Count 3.80 L Hemoglobin 10.2 L Hematocrit 30.5 L Mean Corpuscular Volume 80.3 L Mean Corpuscular Hemoglobin 26.8 L Mean Corpuscular Hemoglobin Concent 33.4 Red Cell Distribution Width 18.6 H Platelet Count 296 Mean Platelet Volume 10.5 H Immature Granulocytes % 0.400 Neutrophils % 74.0 Lymphocytes % 22.8 Monocytes % 2.2 Eosinophils % 0.4 Basophils % 0.2 Nucleated Red Blood Cells % 0.0 Immature Granulocytes # 0.020 Neutrophils # 3.8 Lymphocytes # 1.2 Monocytes # 0.1 L Eosinophils # 0.0 Basophils # 0.0 Nucleated Red Blood Cells # 0.0 Sodium Level 132 L Potassium Level 4.0 Chloride Level 93 L Carbon Dioxide Level 24 Anion Gap 15 H Blood Urea Nitrogen 37 H Creatinine 0.51 Est Glomerular Filtrat Rate mL/min > 60 Glucose Level 133 Calcium Level 8.9 Phosphorus Level 3.8 Magnesium Level 2.2 Exam/Review of Systems Exam Vitals Vital Signs Date Temp Pulse Resp B/P (MAP) Pulse Ox O2 O2 Flow FiO2 Time Delivery Rate 07/03/18 97.3 105 18 120/64 97 Room Air 08:19 (82) Intake and Output 07/02/18 07/02/18 07/03/18 1414:59 22:59 06:59 IntakeIntake Total 446.24 ml 930.41 ml 784.92 ml OutputOutput Total 200 ml 100 ml BalanceBalance 246.24 ml 930.41 ml 684.92 ml Results Results 24hrs Laboratory Tests Test 07/02/18 21:22 07/03/18 04:36 07/03/18 08:51 Bedside Glucose 140 166 White Blood Count 5.1 Red Blood Count 3.80 L Hemoglobin 10.2 L Hematocrit 30.5 L Mean Corpuscular Volume 80.3 L Mean Corpuscular Hemoglobin 26.8 L Mean Corpuscular Hemoglobin Concent 33.4 Red Cell Distribution Width 18.6 H Platelet Count 296 Mean Platelet Volume 10.5 H Immature Granulocytes % 0.400 Neutrophils % 74.0 Lymphocytes % 22.8 Monocytes % 2.2 Eosinophils % 0.4 Basophils % 0.2 Nucleated Red Blood Cells % 0.0 Immature Granulocytes # 0.020 Neutrophils # 3.8 Lymphocytes # 1.2 Monocytes # 0.1 L Eosinophils # 0.0 Basophils # 0.0 Nucleated Red Blood Cells # 0.0 Sodium Level 132 L Potassium Level 4.0 Chloride Level 93 L Carbon Dioxide Level 24 Anion Gap 15 H Blood Urea Nitrogen 37 H Creatinine 0.51 Est Glomerular Filtrat Rate mL/min > 60 Glucose Level 133 Calcium Level 8.9 Phosphorus Level 3.8 Magnesium Level 2.2 Medications Medication Current Medications IV Flush (NS 3 ml) 3 ml PER PROTOCOL IV ; Start 06/10/18 at 18:00 Ondansetron HCl (Zofran Inj) 4 mg Q6H PRN IV NAUSEA/VOMITING Last administered on 06/30/18 23:08; Admin Dose 4 MG; Start 06/10/18 at 18:00 Lorazepam (Ativan) 1 mg Q4H PRN IV anxiety Last administered on 06/12/18 15:28; Admin Dose 1 MG; Start 06/11/18 at 21:30 IV Flush (NS 10 ml) 10 ml PRN PRN IV IV PROTOCOL; Start 06/16/18 at 17:00 Methylnaltrexone [place] (Relistor) 12 mg Q48H SC ; Start 06/17/18 at 08:30 Phenol (Chloraseptic Throat [employer]) 2 spray Q2H PRN [place] SORE THROAT Last administered on 06/17/18 21:23; Admin Dose 2 SPRAY; Start 06/17/18 at 11:30 Pantoprazole (Protonix Iv) 40 mg BID@06,18 IV Last administered on 07/03/18 06:12; Admin Dose 40 MG; Start 06/20/18 at 08:30 Morphine Sulfate (morphine) 2 mg Q4H PRN IV SEVERE PAIN LEVEL 7-10 Last administered on 07/02/18 21:17; Admin Dose 2 MG; Start 06/21/18 at 21:00 Metoclopramide HCl (Reglan) 10 mg Q6 IV Last administered on 07/03/18 03:31; Admin Dose 10 MG; Start 06/22/18 at 12:00 Bisacodyl (Dulcolax Supp) 10 mg DAILY PRN [place] CONSTIPATION Last administered on 07/01/18 10:53; Admin Dose 10 MG; Start 06/25/18 at 12:00 Total Parenteral Nutrition 1,000 ml @ 60 mls/hr [id number] IV Last administered on 07/03/18 03:27; Admin Dose 60 MLS/HR; Start 06/26/18 at 20:00 Fat Emulsion Intravenous 250 ml @ 10.417 mls/ hr Q24H IV Last administered on 07/02/18 16:08; Admin Dose 10.417 MLS/HR; Start 06/27/18 at 16:00 Diagnostic Test (Pha) (Accu-Chek) 1 ea Q12 XX Last administered on 07/03/18at 08:51; Admin Dose 1 EA; Start 06/27/18 at 21:00 Diphenhydramine HCl (Benadryl) 25 mg Q6H PRN IV ALLERGIC REACTION; Start 06/29/18 at 11:00 Dexamethasone 20 mg/Dextrose 55 ml @ 252 mls/hr Q6H PRN IVPB ALLERGIC REACTION; Start 06/29/18 at 11:00 MARTY BOURNE DO Jul 03, 2018 09:17
[2018-07-03] MEDS ORDERED: ACETAMINOPHEN 1000MG/100ML IV 100 ML IVPB PRN (10:30)
--- NOTE | 2018-07-03 13:12 | PN ---
Date/Time of Note Date/Time of Note DATE: 07/03/18 TIME: 13:11 Objective Vitals Vital Signs Date Temp Pulse Resp B/P (MAP) Pulse Ox O2 O2 Flow FiO2 Time Delivery Rate 07/03/18 97.3 105 18 120/64 97 Room Air 08:19 (82) Intake and Output 07/02/18 07/02/18 07/03/18 1515:00 23:00 07:00 IntakeIntake Total 446.24 ml 930.41 ml 784.92 ml OutputOutput Total 200 ml 100 ml BalanceBalance 246.24 ml 930.41 ml 684.92 ml Results Result Diagram: 07/03/18 0436 07/03/18 0436 Medications Medications Current Medications IV Flush (NS 3 ml) 3 ml PER PROTOCOL IV ; Start 06/10/18 at 18:00 Ondansetron HCl (Zofran Inj) 4 mg Q6H PRN IV NAUSEA/VOMITING Last administered on 06/30/18 23:08; Admin Dose 4 MG; Start 06/10/18 at 18:00 Lorazepam (Ativan) 1 mg Q4H PRN IV anxiety Last administered on 06/12/18 15:28; Admin Dose 1 MG; Start 06/11/18 at 21:30 IV Flush (NS 10 ml) 10 ml PRN PRN IV IV PROTOCOL; Start 06/16/18 at 17:00 Methylnaltrexone [place] (Relistor) 12 mg Q48H SC ; Start 06/17/18 at 08:30 Phenol (Chloraseptic Throat [place]) 2 spray Q2H PRN [place] SORE THROAT Last administered on 06/17/18 21:23; Admin Dose 2 SPRAY; Start 06/17/18 at 11:30 Pantoprazole (Protonix Iv) 40 mg BID@06,18 IV Last administered on 07/03/18 06:12; Admin Dose 40 MG; Start 06/20/18 at 08:30 Morphine Sulfate (morphine) 2 mg Q4H PRN IV SEVERE PAIN LEVEL 7-10 Last administered on 07/02/18 21:17; Admin Dose 2 MG; Start 06/21/18 at 21:00 Metoclopramide HCl (Reglan) 10 mg Q6 IV Last administered on 07/03/18 12:31; Admin Dose 10 MG; Start 06/22/18 at 12:00 Bisacodyl (Dulcolax Supp) 10 mg DAILY PRN [place] CONSTIPATION Last administered on 07/01/18 10:53; Admin Dose 10 MG; Start 06/25/18 at 12:00 Total Parenteral Nutrition 1,000 ml @ 60 mls/hr [id number] IV Last administered on 07/03/18 03:27; Admin Dose 60 MLS/HR; Start 06/26/18 at 20:00 Fat Emulsion Intravenous 250 ml @ 10.417 mls/ hr Q24H IV Last administered on 07/02/18 16:08; Admin Dose 10.417 MLS/HR; Start 06/27/18 at 16:00 Diagnostic Test (Pha) (Accu-Chek) 1 ea Q12 XX Last administered on 07/03/18 08:51; Admin Dose 1 EA; Start 06/27/18 at 21:00 Diphenhydramine HCl (Benadryl) 25 mg Q6H PRN IV ALLERGIC REACTION; Start 06/29/18 at 11:00 Dexamethasone 20 mg/Dextrose 55 ml @ 252 mls/hr Q6H PRN IVPB ALLERGIC REACTION; Start 06/29/18 at 11:00 Acetaminophen 100 ml @ 400 mls/hr Q8 PRN IVPB PAIN Last administered on 07/03/18 13:03; Admin Dose 400 MLS/HR; Start 07/03/18 at 10:30; Stop 07/04/18 at 10:29 VTE Prophylaxis Risk score (from Ns)>0 risk: 6 SCD applied (from Ns): No SCD contraindication: other Lines/Catheters IV Catheter Type: Ramsey in Place: No Assessment/Plan Hospital Course Subjective Patient doing ok, no significant changes, finished chemo Objective Physical exam General: Patient is laying in bed and answers questions appropriately Mentation: Patient is alert and oriented 4, Head: Normocephalic atraumatic Eyes: EOMI, pupils reactive to light Neck: Supple, nontender, midline Respiratory: Clear to auscultation bilaterally Cardiovascular: regular rate, no obvious murmurs Gastrointestinal: non-tender to palpation, bowel sounds heard. Neurological: Moves all extremities spontaneously Skin: No new skin lesions Assessment/Plan 1. Nausea with vomiting - Persists - pt will consider Jtube after completion of chemo round 1 if she still cannot tolerate PO intake - dietary for TPN recommendations - also most likely secondary to gastric outlet obstruction - GI and Surgery on board and appreciate recommendations 2. Partial obstructive gastric outlet - Surgery on board and appreciate recommendations. still with N/V but would like to hold off on Jtube for now - s/p placement of stent by GI - CT scan showing gastric thickening and emphysematous gastritis concerning for cancer vs necrosis with likely Gastric outlet obstruction, ovarian mass, possible abscess, etc. 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 on chemo now - Patient's prior oncologist is Dr Mae at [facility]. but she wishes to follow up with Dr. Vick now. 4. JAMAL - resolved 5. PUD - GI on board - PPI 6. Constipation - bowel regimen as tolerated 7. Disposition -finished chemo -Patient agreeable to J-tube, general surgery to schedule -Case management notified to get off for patient to see Dr. Vick in the o utpatient setting for continued chemo every 2 weeks ALYX HENDRIX Jul 03, 2018 13:12
--- NOTE | 2018-07-03 13:39 | PN ---
Date/Time of Note Date/Time of Note DATE: 07/03/18 TIME: 13:37 Assessment/Plan Lines/Catheters IV Catheter Type (from [facility]): Ramsey in Place (from Nrs): No Assessment/Plan Chief Complaint/Hosp Course 1. CT with emphysematous gastritis, portal venous air, thickening of pylorus and duodenal bulb, thick-walled gallbladder, mesenteric inflammation in the upper abdomen with free fluid. Repeat CT noted with improvement of emphysematous gastritis; EGD w stent placement 06/21/18; 04/06/19 status post gastrojejunostomy, resection of right ovarian mass and partial omentectomy at [facility] by Nausea and vomiting intermittent. Patient agreeable for J-tube. Will need to schedule. Continue with oral nutrition, TPN and chemo -We will schedule J-tube placement, plan for this coming week -Continue liquid diet as tolerated -Per gi>antiemetics/motility agents -Supportive measures -Ambulate 2. 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 Previous history of perforated duodenal ulcer and obstruction favors site of primary tumor in the upper GI tract. -Per oncology> status post chemo cycle 1; subsequent chemo cycles per oncology 3. Anemia -Monitor 4. Constipation: Improved -Optimize bowel regimen as able 5. Nausea and vomiting: Improved -as above 6. Poor nutrition: Oral and TPN -As above Thank you. Patient seen and examined in collaboration with Dr. Ag Calle. Subjective 24 Hr Interval Summary No significant changes. Status post chemotherapy. Continues to have intermittent nausea and vomiting. No fevers, chills, sob, congested cough, cp, palpitations, cross, dizziness, nausea, vomiting, diarrhea, dysuria. Exam/Review of Systems Vital Signs Vitals Vital Signs Date Temp Pulse Resp B/P (MAP) Pulse Ox O2 O2 Flow FiO2 Time Delivery Rate 07/03/18 97.3 105 18 120/64 97 Room Air 08:19 (82) Intake and Output 07/02/18 07/02/18 07/03/18 1515:00 23:00 07:00 IntakeIntake Total 446.24 ml 930.41 ml 784.92 ml OutputOutput Total 200 ml 100 ml BalanceBalance 246.24 ml 930.41 ml 684.92 ml Exam Free Text/Dictation Constitutional: alert, oriented, frail Psych: Normal mood Head: normocephalic, atraumatic Eyes: nl conjunctiva, EOMI, PERRL; No icteric ENMT: nl external ears & nose, nl lips & teeth, mucosa pink and moist Neck: supple, non-tender; No jvd Respiratory: normal air movement; No congested cough, No labored breathing, No wheezing Cardiovascular: regular rate and rhythm; No edema Gastrointestinal: soft, tender (minimal), minimally distended No rebound or guarding Musculoskeletal: nl extremities to inspection; No joint tenderness Extremities: normal pulses; No calf tenderness, No edema Neurological: nl mental status, nl speech, nl strength Skin: nl turgor; No rash or lesions, No diaphoresis Lymph: nl lymph nodes Results Result Diagram: 07/03/18 0436 07/03/18 0436 IVELISSE CEJA NP Jul 03, 2018 13:39
[2018-07-03 14:54] VITALS: BP 112/62; PULSE 101; RESP 20
[2018-07-03] MEDS: FAT EMULSION 20% 250 ML IV SCH (15:25)
[2018-07-03 20:40] VITALS: BP 108/68; PULSE 107; RESP 18
[2018-07-04 02:26] VITALS: BP 124/72; PULSE 103; RESP 19
[2018-07-04] MEDS: METOCLOPRAMIDE 10 MG INJ IV SCH (06:00)
[2018-07-04] MEDS: PANTOPRAZOLE 40 MG INJ IV SCH ×2 (06:00→18:00)
[2018-07-04 07:40] VITALS: BP 128/70; PULSE 108; RESP 18
[2018-07-04] MEDS: ACCU-CHEK XX SCH ×2 (09:00→21:00)
--- NOTE | 2018-07-04 09:13 | PN ---
DATE: 07/04/2018 SUBJECTIVE: The patient is stable, no events overnight. OBJECTIVE: VITAL SIGNS: Blood pressure is 128/70, respiration 18, pulse 108, temperature 97.2. HEENT: Head is normocephalic. NECK: Supple. HEART: Regular rate. LUNGS: Show diminished breath sounds at the base. ABDOMEN: Soft, nontender to palpation without rebound or guarding. EXTREMITIES: Negative for clubbing, cyanosis, no edema. DERMATOLOGIC: No rashes. MUSCULOSKELETAL: No joint effusion. NEUROLOGIC: No change in exam. MEDICATIONS: The patient's medications have been reviewed. LABORATORY DATA: Has white count 5.2, hemoglobin 10.2, platelet count 315. Sodium 127, BUN 44, crea tinine 0.79, magnesium 2.8. The patient's urinalysis shows a FENa less than 1%. ASSESSMENT AND PLAN: 1. Acute hyponatremia, etiology secondary to volume depletion secondary to gastrointestinal loss, na usea, vomiting and hypertonic fluid. The patient's urinalysis is consistent with prerenal state. Pl an at this point is to start the patient on normal saline at 75 mL an hour. Will continue to monitor serial sodium levels closely. 2. Acute kidney injury, etiology secondary to hemodynamics. Renal function is improved. Continue t o monitor closely. Continue supportive care, renally dose all meds. The patient has underlying azot emia likely due to hypercatabolic state. Continue to monitor. The patient is also on TPN, monitor c losely. 3. Anemia. Continue to monitor hemoglobin and hematocrit levels. 4. Mineral bone disorder. Monitor calcium and phosphorus levels. 5. Nausea, vomiting. Etiology may be secondary to chemotherapy; has cancer. Continue antiemetics. 5. Gastric outlet obstruction. The patient is status post EGD with stent placement. Continue to mo nitor. 6. History of metastatic gastric cancer. The patient is status post chemotherapy. Continue current medical management. 7. Nutrition. The patient is on TPN. Continue to observe. Dictated By: BRAYDEN AMHMOOD/NTS Conf#: [id number] DID#: [id number] CC: ELMER CAVAZOS MD;*EndCC*
--- NOTE | 2018-07-04 10:06 | PN ---
Date/Time of Note Date/Time of Note DATE: 07/04/18 TIME: 10:06 Assessment/Plan VTE Prophylaxis Risk score (from Nsg)>0 risk: 6 SCD applied (from Nsg): Yes Pharmacological prophylaxis: NA/contraindicated Pharm contraindication: surgical contra Lines/Catheters IV Catheter Type (from Nrsg): PICC Line Central line still needed: Yes Urinary Cath still in place: No Assessment/Plan Assessment/Plan 1. Persistent Nausea with vomiting - Surgery on board and plans for J tube placement given unable to tolerate PO intake - dietary for TPN recommendations - also most likely secondary to gastric outlet obstruction - GI and Surgery on board and appreciate recommendations 2. Partial obstructive gastric outlet - Surgery on board and appreciate recommendations. plans for Jtube this week - s/p placement of stent by GI - CT scan showing gastric thickening and emphysematous gastritis concerning for cancer vs necrosis with likely Gastric outlet obstruction, ovarian mass, possible abscess, etc. - Will d/c reglan for now given exacerbating N/V 3. 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 Completed first round of chemotherapy - Patient's prior oncologist is Dr Mae at [facility]. but she wishes to follow up with Dr. Vick now. 4. JAMAL - resolved 5. PUD - GI on board - PPI 6. Constipation - bowel regimen as tolerated 7. Disposition - plans for Jtube placement prior to discharge - CM on board for authorization for patient to see Dr. Vick in 2 weeks to continue outpt chemo Result Diagram: 07/04/18 0507 07/04/18 0750 Results 24hrs Laboratory Tests Test 07/03/18 20:10 07/04/18 05:07 07/04/18 07:50 07/04/18 09:33 Bedside Glucose 163 191 White Blood Count 5.2 Red Blood Count 3.70 L Hemoglobin 10.2 L Hematocrit 30.9 L Mean Corpuscular Volume 83.5 Mean Corpuscular 27.6 L Hemoglobin Mean Corpuscular 33.0 Hemoglobin Concent Red Cell Distribution 18.8 H Width Platelet Count 315 Mean Platelet Volume 11.3 H Immature Granulocytes % 0.200 Neutrophils % 77.1 H Lymphocytes % 21.1 Monocytes % 0.8 Eosinophils % 0.6 Basophils % 0.2 Nucleated Red Blood 0.0 Cells % Immature Granulocytes # 0.010 Neutrophils # 4.0 Lymphocytes # 1.1 Monocytes # 0.0 L Eosinophils # 0.0 Basophils # 0.0 Nucleated Red Blood 0.0 Cells # Sodium Level 127 L Potassium Level 4.8 Chloride Level 94 L Carbon Dioxide Level 19 L Anion Gap 14 H Blood Urea Nitrogen 44 H Creatinine 0.79 Est Glomerular Filtrat > 60 Rate mL/min Glucose Level Calcium Level 8.1 L Phosphorus Level 4.7 Magnesium Level 2.8 H Prealbumin 22.1 Triglycerides Level 507 H Subjective 24 Hr Interval Summary Free Text/Dictation Patient still with nausea and vomiting. Believes it is exacerbated by Reglan and requesting medication change. Exam/Review of Systems Exam Vitals Vital Signs Date Temp Pulse Resp B/P (MAP) Pulse Ox O2 O2 Flow FiO2 Time Delivery Rate 07/04/18 97.2 108 18 128/70 96 07:40 (89) 07/03/18 Room Air 08:19 Intake and Output 07/03/18 07/03/18 07/04/18 1515:00 23:00 07:00 IntakeIntake Total 340 ml 1190 ml 770 ml BalanceBalance 340 ml 1190 ml 770 ml Exam General: Patient is laying in bed and answers questions appropriately. mild discomfort due to nausea Neck: Supple, nontender, midline Respiratory: Clear to auscultation bilaterally. no wheezing Cardiovascular: regular rate and rhythm, no obvious murmurs Gastrointestinal: soft non-tender to palpation, bowel sounds heard. Neurological: Moves all extremities spontaneously Skin: No new skin lesions Results Results 24hrs Laboratory Tests Test 07/03/18 20:10 07/04/18 05:07 07/04/18 07:50 07/04/18 09:33 Bedside Glucose 163 191 White Blood Count 5.2 Red Blood Count 3.70 L Hemoglobin 10.2 L Hematocrit 30.9 L Mean Corpuscular Volume 83.5 Mean Corpuscular 27.6 L Hemoglobin Mean Corpuscular 33.0 Hemoglobin Concent Red Cell Distribution 18.8 H Width Platelet Count 315 Mean Platelet Volume 11.3 H Immature Granulocytes % 0.200 Neutrophils % 77.1 H Lymphocytes % 21.1 Monocytes % 0.8 Eosinophils % 0.6 Basophils % 0.2 Nucleated Red Blood 0.0 Cells % Immature Granulocytes # 0.010 Neutrophils # 4.0 Lymphocytes # 1.1 Monocytes # 0.0 L Eosinophils # 0.0 Basophils # 0.0 Nucleated Red Blood 0.0 Cells # Sodium Level 127 L Potassium Level 4.8 Chloride Level 94 L Carbon Dioxide Level 19 L Anion Gap 14 H Blood Urea Nitrogen 44 H Creatinine 0.79 Est Glomerular Filtrat > 60 Rate mL/min Glucose Level Calcium Level 8.1 L Phosphorus Level 4.7 Magnesium Level 2.8 H Prealbumin 22.1 Triglycerides Level 507 H Medications Medication Current Medications IV Flush (NS 3 ml) 3 ml PER PROTOCOL IV ; Start 06/10/18 at 18:00 Ondansetron HCl (Zofran Inj) 4 mg Q6H PRN IV NAUSEA/VOMITING Last administered on 06/30/18 23:08; Admin Dose 4 MG; Start 06/10/18 at 18:00 Lorazepam (Ativan) 1 mg Q4H PRN IV anxiety Last administered on 06/12/18 15:28; Admin Dose 1 MG; Start 06/11/18 at 21:30 IV Flush (NS 10 ml) 10 ml PRN PRN IV IV PROTOCOL; Start 06/16/18 at 17:00 Methylnaltrexone [place] (Relistor) 12 mg Q48H SC ; Start 06/17/18 at 08:30 Phenol (Chloraseptic Throat [place]) 2 spray Q2H PRN [place] SORE THROAT Last administered on 06/17/18 21:23; Admin Dose 2 SPRAY; Start 06/17/18 at 11:30 Pantoprazole (Protonix Iv) 40 mg BID@06,18 IV Last administered on 07/03/18 17:32; Admin Dose 40 MG; Start 06/20/18 at 08:30 Morphine Sulfate (morphine) 2 mg Q4H PRN IV SEVERE PAIN LEVEL 7-10 Last administered on 07/02/18 21:17; Admin Dose 2 MG; Start 06/21/18 at 21:00 Metoclopramide HCl (Reglan) 10 mg Q6 IV Last administered on 07/03/18 23:15; Admin Dose 10 MG; Start 06/22/18 at 12:00 Bisacodyl (Dulcolax Supp) 10 mg DAILY PRN [place] CONSTIPATION Last administered on 07/01/18 10:53; Admin Dose 10 MG; Start 06/25/18 at 12:00 Total Parenteral Nutrition 1,000 ml @ 60 mls/hr [id number] IV Last administered on 07/03/18at 20:09; Admin Dose 60 MLS/HR; Start 06/26/18 at 20:00 Fat Emulsion Intravenous 250 ml @ 10.417 mls/ hr Q24H IV Last administered on 07/03/18at 15:25; Admin Dose 10.417 MLS/HR; Start 06/27/18 at 16:00; Status Hold Diagnostic Test (Pha) (Accu-Chek) 1 ea Q12 XX Last administered on 07/03/18at 20:11; Admin Dose 1 EA; Start 06/27/18 at 21:00 Diphenhydramine HCl (Benadryl) 25 mg Q6H PRN IV ALLERGIC REACTION; Start 06/29/18 at 11:00 Dexamethasone 20 mg/Dextrose 55 ml @ 252 mls/hr Q6H PRN IVPB ALLERGIC REACTION; Start 06/29/18 at 11:00 Acetaminophen 100 ml @ 400 mls/hr Q8 PRN IVPB PAIN Last administered on 07/03/18at 13:03; Admin Dose 400 MLS/HR; Start 07/03/18 at 10:30; Stop 07/04/18 at 10:29 Sodium Chloride 1,000 ml @ 75 mls/hr [id number] IV ; Start 07/04/18 at 08:30 TOBI THOMAS MD Jul 04, 2018 10:06
[2018-07-04] MEDS: SOD CHLORIDE 0.9% 1,000 ML IV SCH ×2 (10:59→21:50)
[2018-07-04] MEDS ORDERED: ONDANSETRON 4 MG INJ IV PRN (12:00)
[2018-07-04] MEDS ORDERED: ONDANSETRON 4 MG INJ IV ONE (12:00)
--- NOTE | 2018-07-04 14:39 | CONS ---
Assessment/Plan Assessment/Plan Hospital Course (Demo Recall) unfortunate 47 yo with metastatic gastric ca. admitted with N/V/abdo pain. s/p EGD and metal stent placed across the malignant stricture of the antrum of the stomach and also first part of the duodenum. #gastric ca -biopsy from EGD and reports from outside facilities are c/w gastric ca signet ring features. unclear why pt thought it was ovarian ca, have called Dr Mcdonald's office as well to update him -I discussed chemo with pt including schedule which is every 2 weeks as an outpt after cycle 1. side effects include but not limited to nausea, fatigue, myelosuppression, infection, neuropathy, cold sensitivity, mucositis, she verbalized understanding and consented to start -her 2 testing and PDL1 to be added to path to see if she is a candidate for herceptin along with FOLFOX -needs mediport prior to discharge, she has PICC now -CHEMO STARTED 06/29/18, has completed the 46 hr infusions -Dr Suarez also informed me she has motility issues due to tumor infiltration of stomach and stent will not allow her to eat. have communicated with Dr Calle if maybe a j tube can help. will reassess in a few days -j tube tomorrow Thank you Dr Lee and Dr Landeros for allowing us to participate in the care of this pleasant pt Consultation Date/Type/Reason Admit Date/Time Jun 10, 2018 at 18:42 Initial Consult Date 06/11/18 Requesting Provider: ELMER LEE MD Date/Time of Note DATE: 07/04/18 TIME: 14:39 24 HR Interval Summary Free Text/Dictation emesis x 8 overnight, 2 times today so far per nursing pt is declining nausea meds Exam/Review of Systems Exam Vitals Vital Signs Date Temp Pulse Resp B/P (MAP) Pulse Ox O2 O2 Flow FiO2 Time Delivery Rate 07/04/18 97.2 108 18 128/70 96 07:40 (89) 07/03/18 Room Air 08:19 Intake and Output 07/03/18 07/03/18 07/04/18 1515:00 23:00 07:00 IntakeIntake Total 340 ml 1190 ml 770 ml BalanceBalance 340 ml 1190 ml 770 ml Constitutional: alert, oriented, frail Head: normocephalic, atraumatic Eyes: nl conjunctiva, EOMI, nl lids, nl sclera, PERRL ENMT: nl external ears & nose, nl lips & teeth, nl nasal mucosa & septum Neck: supple, non-tender Respiratory: clear to auscultation, normal air movement Cardiovascular: regular rate and rhythm, nl pulses Musculoskeletal: nl extremities to inspection, nl gait and stance Results Result Diagram: 07/04/18 0507 07/04/18 0750 Results 24hrs Laboratory Tests Test 07/03/18 20:10 07/04/18 05:07 07/04/18 07:50 07/04/18 09:33 Bedside Glucose 163 191 White Blood Count 5.2 Red Blood Count 3.70 L Hemoglobin 10.2 L Hematocrit 30.9 L Mean Corpuscular Volume 83.5 Mean Corpuscular 27.6 L Hemoglobin Mean Corpuscular 33.0 Hemoglobin Concent Red Cell Distribution 18.8 H Width Platelet Count 315 Mean Platelet Volume 11.3 H Immature Granulocytes % 0.200 Neutrophils % 77.1 H Lymphocytes % 21.1 Monocytes % 0.8 Eosinophils % 0.6 Basophils % 0.2 Nucleated Red Blood 0.0 Cells % Immature Granulocytes # 0.010 Neutrophils # 4.0 Lymphocytes # 1.1 Monocytes # 0.0 L Eosinophils # 0.0 Basophils # 0.0 Nucleated Red Blood 0.0 Cells # Sodium Level 127 L Potassium Level 4.8 Chloride Level 94 L Carbon Dioxide Level 19 L Anion Gap 14 H Blood Urea Nitrogen 44 H Creatinine 0.79 Est Glomerular Filtrat > 60 Rate mL/min Glucose Level Calcium Level 8.1 L Phosphorus Level 4.7 Magnesium Level 2.8 H Prealbumin 22.1 Triglycerides Level 507 H Medications Medication Current Medications IV Flush (NS 3 ml) 3 ml PER PROTOCOL IV ; Start 06/10/18 at 18:00 Lorazepam (Ativan) 1 mg Q4H PRN IV anxiety Last administered on 06/12/18at 15:28; Admin Dose 1 MG; Start 06/11/18 at 21:30 IV Flush (NS 10 ml) 10 ml PRN PRN IV IV PROTOCOL; Start 06/16/18 at 17:00 Methylnaltrexone [place] (Relistor) 12 mg Q48H SC ; Start 06/17/18 at 08:30 Phenol (Chloraseptic Throat [place]) 2 spray Q2H PRN [place] SORE THROAT Last administered on 06/17/18 21:23; Admin Dose 2 SPRAY; Start 06/17/18 at 11:30 Pantoprazole (Protonix Iv) 40 mg BID@06,18 IV Last administered on 07/03/18 17:32; Admin Dose 40 MG; Start 06/20/18 at 08:30 Morphine Sulfate (morphine) 2 mg Q4H PRN IV SEVERE PAIN LEVEL 7-10 Last administered on 07/02/18 21:17; Admin Dose 2 MG; Start 06/21/18 at 21:00 Bisacodyl (Dulcolax Supp) 10 mg DAILY PRN [place] CONSTIPATION Last administered on 07/01/18 10:53; Admin Dose 10 MG; Start 06/25/18 at 12:00 Total Parenteral Nutrition 1,000 ml @ 60 mls/hr [id number] IV Last administered on 07/03/18 20:09; Admin Dose 60 MLS/HR; Start 06/26/18 at 20:00 Fat Emulsion Intravenous 250 ml @ 10.417 mls/ hr Q24H IV Last administered on 07/03/18 15:25; Admin Dose 10.417 MLS/HR; Start 06/27/18 at 16:00; Status Hold Diagnostic Test (Pha) (Accu-Chek) 1 ea Q12 XX Last administered on 07/04/18 09:00; Admin Dose 1 EA; Start 06/27/18 at 21:00 Diphenhydramine HCl (Benadryl) 25 mg Q6H PRN IV ALLERGIC REACTION; Start 06/29/18 at 11:00 Dexamethasone 20 mg/Dextrose 55 ml @ 252 mls/hr Q6H PRN IVPB ALLERGIC REACTION; Start 06/29/18 at 11:00 Sodium Chloride 1,000 ml @ 75 mls/hr [id number] IV Last administered on 07/04/18 10:59; Admin Dose 75 MLS/HR; Start 07/04/18 at 08:30 Prochlorperazine (Compazine Inj) 5 mg Q4H PRN IV NAUSEA AND/OR VOMITING; Start 07/04/18 at 11:00 Ondansetron HCl 8 mg/Sodium Chloride 54 ml @ 216 mls/hr Q6H PRN IV NAUSEA AND/OR VOMITING; Start 07/04/18 at 11:30 NICK VARELA Jul 04, 2018 14:39
[2018-07-04] MEDS: PROCHLORPERAZINE 10 MG INJ IV PRN (16:19)
[2018-07-04 16:40] VITALS: BP 119/70; PULSE 112; RESP 19
[2018-07-04] MEDS ORDERED: KETOROLAC 30 MG INJ IV PRN (17:00)
[2018-07-04] MEDS: TPN 1,000 ML IV SCH (17:59)
[2018-07-04 20:30] VITALS: BP 108/54; PULSE 101; RESP 19
[2018-07-04] MEDS: ONDANSETRON INJ 8 MG in SOD CHLORIDE 0.9% 50 ML IV PRN (20:56)
[2018-07-05 02:15] VITALS: BP 129/72; PULSE 99; RESP 19
[2018-07-05] MEDS: TPN 1,000 ML IV SCH ×2 (04:00→13:07)
[2018-07-05] MEDS: SOD CHLORIDE 0.9% 1,000 ML IV SCH (05:13)
[2018-07-05] MEDS: PANTOPRAZOLE 40 MG INJ IV SCH (05:17)
[2018-07-05 07:52] VITALS: BP 126/74; PULSE 103; RESP 18
[2018-07-05] MEDS: METHYLNALTREXONE 12 MG/0.6 ML VIAL SC SCH (08:30)
--- NOTE | 2018-07-05 08:56 | PN ---
DATE: 07/05/2018 SUBJECTIVE: The patient is stable, continues to have nausea, vomiting, no other events noted. OBJECTIVE: VITAL SIGNS: Blood pressure is 126/74, pulse 103, respirations 18, temperature 97.4. HEENT: Head is normocephalic. NECK: Supple. HEART: Regular rate. LUNGS: Show diminished breath sounds at the base. ABDOMEN: Soft, nontender to palpation. No rebound or guarding. EXTREMITIES: Negative for clubbing, cyanosis, no edema. DERMATOLOGIC: No rashes. MUSCULOSKELETAL: No joint effusion. NEUROLOGIC: No change in exam. MEDICATIONS: Reviewed. LABORATORY DATA: Shows sodium 134, potassium is 4.1, chloride 99, BUN 16, creatinine 0.89. White co unt 5.2, hemoglobin 10.2. ASSESSMENT AND PLAN: 1. Acute hypernatremia, etiology is secondary to volume depletion secondary to gastrointestinal loss es, nausea, vomiting. The patient was placed on IV fluids with improvement in sodium levels. We norm l continue to monitor. Continue IV hydration. 2. Acute kidney injury, etiology is secondary to hemodynamics. Renal function is improved. Please note, the patient does have underlying azotemia likely related to hypercatabolic state, in conjunctio n with TPA. Continue to monitor closely. 3. Anemia. Monitor hemoglobin and hematocrit levels. 4. Mineral bone disorder, monitor calcium and phosphorus levels. 5. Nausea, vomiting secondary to chemotherapy. Continue antiemetics. 6. Gastric outlet obstruction. The patient is status post EGD with stent placement. Continue to mo nitor. 7. Metastatic gastric cancer. The patient is on chemotherapy. Continue current treatment plan. 8. Nutrition. Continue TPN. Dictated By: BRAYDEN RED DO NR/NTS Conf#: [id number] DID#: [id number] CC: ELMER CAVAZOS MD; TOBI THOMAS MD; DARVIN BOURNE MD;*EndCC*
--- NOTE | 2018-07-05 09:16 | PN ---
Date/Time of Note Date/Time of Note DATE: 07/05/18 TIME: 09:16 Assessment/Plan VTE Prophylaxis Risk score (from Nsg)>0 risk: 6 SCD applied (from Nsg): No SCD contraindicated: low risk/ambulating Pharmacological prophylaxis: NA/contraindicated Pharm contraindication: low risk/ambulating Lines/Catheters IV Catheter Type (from Nrsg): PICC Line Central line still needed: Yes Urinary Cath still in place: No Assessment/Plan Assessment/Plan 1. Persistent Nausea with vomiting - Plans for placement of Gtube per GI if possible. If not Surgery will place J tube for PO nutrition - Adjustments made to antiemetic and Pepcid added BID - dietary for TPN recommendations - GI and Surgery on board and appreciate recommendations 2. Partial obstructive gastric outlet - Surgery on board and appreciate recommendations. - s/p placement of stent by GI - CT scan showing gastric thickening and emphysematous gastritis concerning for cancer vs necrosis with likely Gastric outlet obstruction, ovarian mass, possible abscess, etc. 3. 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 Completed first round of chemotherapy and will need to follow up as outpatient for further treatment - Patient's prior oncologist is Dr Mae at [facility]. but she wishes to follow up with Dr. Vick now. 4. JAMAL - resolved 5. PUD - GI on board - patient not tolerating PPI. Offered Pepcid BID 6. Constipation - bowel regimen as tolerated 7. Disposition - plans for feeding tube placement and once N/V improves, will have portacath placed in anticipation for discharge Result Diagram: 07/04/18 0507 07/05/18 0446 Results 24hrs Laboratory Tests Test 07/04/18 09:33 07/04/18 14:03 07/04/18 20:50 07/05/18 04:46 Bedside Glucose 191 153 Sodium Level 133 L 134 L Potassium Level 4.4 4.1 Chloride Level 99 99 Carbon Dioxide Level 22 21 Anion Gap 12 14 H Blood Urea Nitrogen 52 H 60 H Creatinine 0.49 0.89 Est Glomerular Filtrat > 60 Rate mL/min Glucose Level 154 121 Calcium Level 9.3 9.3 Phosphorus Level 4.2 Magnesium Level 2.3 Albumin 3.7 Subjective 24 Hr Interval Summary Free Text/Dictation Patient still with persistent nausea. She states antiemetics have been causing heartburn but discussed her persistent vomiting has probably contributed. She is agreeable to J/Gtube placement and portacath as well. Exam/Review of Systems Exam Vitals Vital Signs Date Temp Pulse Resp B/P (MAP) Pulse Ox O2 O2 Flow FiO2 Time Delivery Rate 07/05/18 97.5 103 18 126/74 97 07:52 (91) 07/03/18 Room Air 08:19 Intake and Output 07/04/18 07/04/18 07/05/18 1515:00 23:00 07:00 IntakeIntake Total 460 ml 564 ml 1210 ml OutputOutput Total 350 ml 700 ml BalanceBalance 460 ml 214 ml 510 ml Exam General: Patient is laying in bed and answers questions appropriately. Neck: Supple, nontender, midline Respiratory: Clear to auscultation bilaterally. no wheezing Cardiovascular: regular rate and rhythm, no obvious murmurs Gastrointestinal: soft non-tender to palpation, bowel sounds heard. Neurological: Moves all extremities spontaneously Skin: No new skin lesions Results Results 24hrs Laboratory Tests Test 07/04/18 09:33 07/04/18 14:03 07/04/18 20:50 07/05/18 04:46 Bedside Glucose 191 153 Sodium Level 133 L 134 L Potassium Level 4.4 4.1 Chloride Level 99 99 Carbon Dioxide Level 22 21 Anion Gap 12 14 H Blood Urea Nitrogen 52 H 60 H Creatinine 0.49 0.89 Est Glomerular Filtrat > 60 Rate mL/min Glucose Level 154 121 Calcium Level 9.3 9.3 Phosphorus Level 4.2 Magnesium Level 2.3 Albumin 3.7 Medications Medication Current Medications IV Flush (NS 3 ml) 3 ml PER PROTOCOL IV ; Start 06/10/18 at 18:00 Lorazepam (Ativan) 1 mg Q4H PRN IV anxiety Last administered on 06/12/18at 15:28; Admin Dose 1 MG; Start 06/11/18 at 21:30 IV Flush (NS 10 ml) 10 ml PRN PRN IV IV PROTOCOL; Start 06/16/18 at 17:00 Methylnaltrexone [place] (Relistor) 12 mg Q48H SC ; Start 06/17/18 at 08:30 Phenol (Chloraseptic Throat [place]) 2 spray Q2H PRN [place] SORE THROAT Last administered on 06/17/18at 21:23; Admin Dose 2 SPRAY; Start 06/17/18 at 11:30 Pantoprazole (Protonix Iv) 40 mg BID@06,18 IV Last administered on 07/05/18 05:17; Admin Dose 40 MG; Start 06/20/18 at 08:30 Morphine Sulfate (morphine) 2 mg Q4H PRN IV SEVERE PAIN LEVEL 7-10 Last administered on 07/02/18 21:17; Admin Dose 2 MG; Start 06/21/18 at 21:00 Bisacodyl (Dulcolax Supp) 10 mg DAILY PRN [place] CONSTIPATION Last administered on 07/01/18 10:53; Admin Dose 10 MG; Start 06/25/18 at 12:00 Total Parenteral Nutrition 1,000 ml @ 60 mls/hr [id number] IV Last administered on 07/04/18 17:59; Admin Dose 60 MLS/HR; Start 06/26/18 at 20:00 Fat Emulsion Intravenous 250 ml @ 10.417 mls/ hr Q24H IV Last administered on 07/03/18 15:25; Admin Dose 10.417 MLS/HR; Start 06/27/18 at 16:00; Status Hold Diagnostic Test (Pha) (Accu-Chek) 1 ea Q12 XX Last administered on 07/04/18 09:00; Admin Dose 1 EA; Start 06/27/18 at 21:00 Diphenhydramine HCl (Benadryl) 25 mg Q6H PRN IV ALLERGIC REACTION; Start 06/29/18 at 11:00 Dexamethasone 20 mg/Dextrose 55 ml @ 252 mls/hr Q6H PRN IVPB ALLERGIC REAC TION; Start 06/29/18 at 11:00 Sodium Chloride 1,000 ml @ 40 mls/hr Q24H IV Last administered on 07/05/18 05:13; Admin Dose 75 MLS/HR; Start 07/04/18 at 08:30 Prochlorperazine (Compazine Inj) 5 mg Q4H PRN IV NAUSEA AND/OR VOMITING Last administered on 07/04/18 16:19; Admin Dose 5 MG; Start 07/04/18 at 11:00 Ondansetron HCl 8 mg/Sodium Chloride 54 ml @ 216 mls/hr Q6H PRN IV NAUSEA AND/OR VOMITING Last administered on 3/4/19at 20:56; Admin Dose 216 MLS/HR; Start 07/04/18 at 11:30 Ketorolac Tromethamine (Toradol) 30 mg Q6H PRN IV PAIN LEVEL 1-3 Last administered on 07/04/18at 19:27; Admin Dose 30 MG; Start 07/04/18 at 17:00; Stop 07/07/18 at 16:59 TOBI THOMAS MD Jul 05, 2018 09:16
[2018-07-05] MEDS: ACCU-CHEK XX SCH ×2 (09:37→21:00)
--- NOTE | 2018-07-05 11:09 | PN ---
Date/Time of Note Date/Time of Note DATE: 07/05/18 TIME: 11:06 Assessment/Plan Lines/Catheters IV Catheter Type (from Nrs): PICC Line [place] in Place (from Nrs): No Assessment/Plan Chief Complaint/Hosp Course 1. CT with emphysematous gastritis, portal venous air, thickening of pylorus and duodenal bulb, thick-walled gallbladder, mesenteric inflammation in the u pper abdomen with free fluid. Repeat CT noted with improvement of emphysematous gastritis; EGD w stent placement 06/21/18; 04/06/19 status post gastrojejunostomy, resection of right ovarian mass and partial omentectomy at [facility] by Nausea and vomiting intermittent. Patient agreeable for feeding tube. Dr. Calle to contact Dr. Suarez for possible GJtube, otherwise will place jtube - possible today. Continue with oral nutrition, TPN and chemo -gj or j-tube placement, possibly today> keep pt npo -Continue liquid diet as tolerated -Per gi>antiemetics/motility agents -Supportive measures -Ambulate 2. 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 Previous history of perforated duodenal ulcer and obstruction favors site of primary tumor in the upper GI tract. -Per oncology> status post chemo cycle 1; subsequent chemo cycles per oncology 3. Anemia -Monitor 4. Constipation: Improved -Optimize bowel regimen as able 5. Nausea and vomiting: Improved -as above 6. Poor nutrition: Oral and TPN -As above Thank you. Patient seen and examined in collaboration with Dr. Ag Calle. Subjective 24 Hr Interval Summary Continues to have vomiting. Possible tube placement today. No fevers, chills, sob, congested cough, cp, palpitations, cross, dizziness, d/dysuria. Exam/Review of Systems Vital Signs Vitals Vital Signs Date Temp Pulse Resp B/P (MAP) Pulse Ox O2 O2 Flow FiO2 Time Delivery Rate 07/05/18 97.5 103 18 126/74 97 07:52 (91) 3/3/19 Room Air 08:19 Intake and Output 07/04/18 07/04/18 07/05/18 1515:00 23:00 07:00 IntakeIntake Total 460 ml 564 ml 1210 ml OutputOutput Total 350 ml 700 ml BalanceBalance 460 ml 214 ml 510 ml Exam Free Text/Dictation Constitutional: alert, oriented, frail Psych: Normal mood Head: normocephalic, atraumatic Eyes: nl conjunctiva, EOMI, PERRL; No icteric ENMT: nl external ears & nose, nl lips & teeth, mucosa pink and moist Neck: supple, non-tender; No jvd Respiratory: normal air movement; No congested cough, No labored breathing, No wheezing Cardiovascular: regular rate and rhythm; No edema Gastrointestinal: soft, tender (minimal), minimally distended No rebound or guarding Musculoskeletal: nl extremities to inspection; No joint tenderness Extremities: normal pulses; No calf tenderness, No edema Neurological: nl mental status, nl speech, nl strength Skin: nl turgor; No rash or lesions, No diaphoresis Lymph: nl lymph nodes Results Result Diagram: 07/04/18 0507 07/05/18 0446 IVELISSE CEJA NP Jul 05, 2018 11:09
[2018-07-05] MEDS: FAMOTIDINE 20 MG INJ IV SCH ×2 (13:04→21:47)
[2018-07-05 14:00] VITALS: BP 116/0; PULSE 97; RESP 18
[2018-07-05] MEDS ORDERED: BARIUM SULFATE 135 ML (E-Z HD) PO ONE ×2 (17:06→17:17)
[2018-07-05 20:45] VITALS: BP 134/59; PULSE 99; RESP 16
[2018-07-05] MEDS: ONDANSETRON INJ 8 MG in SOD CHLORIDE 0.9% 50 ML IV PRN (23:18)
[2018-07-06 02:16] VITALS: BP 157/70; PULSE 101; RESP 18
[2018-07-06] MEDS: TPN 1,000 ML IV SCH ×2 (06:27→23:58)
--- NOTE | 2018-07-06 08:50 | PN ---
DATE: 07/06/2018 SUBJECTIVE: The patient is stable. No events overnight. The patient continues to have nausea, and vomiting. OBJECTIVE: VITAL SIGNS: Blood pressure is 157/70, respirations 18, pulse 101, temperature 97.3. HEENT: Head is normocephalic. NECK: Supple. HEART: Regular rate. LUNGS: Show diminished breath sounds at the base. ABDOMEN: Soft, nontender to palpation. No rebound or guarding. EXTREMITIES: Negative for clubbing, cyanosis, no edema. DERMATOLOGIC: No rashes. MUSCULOSKELETAL: No joint effusion. NEUROLOGIC: No change in exam. MEDICATIONS: Reviewed. LABORATORY DATA: Shows sodium 138, potassium 4.2, BUN 53, creatinine 1.49. White count 5.2, hemoglo bin 10.2, platelet count is 315. ASSESSMENT AND PLAN: 1. Acute hyponatremia, etiology is secondary to volume depletion. The patient's sodium levels have improved with IV hydration. We will deescalate IV fluids. 2. Acute kidney injury secondary to hemodynamics. Renal function is improved. Continue to monitor. 3. Anemia. Monitor hemoglobin and hematocrit levels. 4. Mineral bone disorder, monitor calcium and phosphorus levels. 5. Nausea and vomiting secondary to chemotherapy. The patient is pending possible G-tube placement. 6. Gastric outlet obstruction status post EGD with stent placement. Continue to monitor, pending G tube placement. 7. Metastatic gastric cancer. The patient is status post chemotherapy. 8. Nutrition. Continue TPN. Dictated By: BRAYDEN RED DO NR/NTS Conf#: [id number] DID#: [id number] CC: DARVIN BOURNE MD; ELMER CAVAZOS MD; TOBI THOMAS MD;*EndCC*
--- NOTE | 2018-07-06 09:08 | PN ---
Date/Time of Note Date/Time of Note DATE: 07/06/18 TIME: 09:08 Assessment/Plan VTE Prophylaxis Risk score (from Nsg)>0 risk: 4 SCD applied (from Nsg): Yes Pharmacological prophylaxis: NA/contraindicated Pharm contraindication: low risk/ambulating Lines/Catheters IV Catheter Type (from Nrsg): PICC Line Central line still needed: Yes Urinary Cath still in place: No Assessment/Plan Assessment/Plan 1. Persistent Nausea with vomiting - Will try PO intake again this am and if no improvement in vomiting, will plan for Jtube placement with Surgery. GI does not want to place a G tube - Adjustments made to antiemetic and Pepcid added BID - dietary for TPN recommendations - GI and Surgery on board and appreciate recommendations 2. Partial obstructive gastric outlet - Surgery on board and appreciate recommendations. - s/p placement of stent by GI - CT scan showing gastric thickening and emphysematous gastritis concerning for cancer vs necrosis with likely Gastric outlet obstruction, ovarian mass, possible abscess, etc. 3. 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 Completed first round of chemotherapy and will need to follow up as outpatient for further treatment - Will place portacath once patients vomiting resolves given IR concern for aspiration in setting of N/V - Patient's prior oncologist is Dr Mae at [facility]. but she wishes to follow up with Dr. Vick now. 4. JAMAL - resolved 5. PUD - GI on board - Pepcid BID 6. Constipation - bowel regimen as tolerated 7. Disposition - Will try PO intake and if still with vomiting, Jtube placement possibly Wednesday. Once N/V resolves, will proceed with portacath placement Result Diagram: 07/04/18 0507 07/06/18 0446 Results 24hrs Laboratory Tests Test 07/05/18 09:36 07/05/18 21:53 07/06/18 04:46 Bedside Glucose 146 143 Sodium Level 138 Potassium Level 4.2 Chloride Level 109 # Carbon Dioxide Level 19 L Anion Gap 10 Blood Urea Nitrogen 53 H Creatinine 0.49 Est Glomerular Filtrat Rate mL/min > 60 Glucose Level 131 Calcium Level 9.0 Phosphorus Level 3.2 Magnesium Level 2.3 Triglycerides Level 166 H Subjective 24 Hr Interval Summary Free Text/Dictation Patient requesting to try eating smoothie this am. Discussion held with Surgery who are okay for PO trial. If still with persistent vomiting, will plan for Jtube placement wednesday. Exam/Review of Systems Exam Vitals Vital Signs Date Temp Pulse Resp B/P (MAP) Pulse Ox O2 O2 Flow FiO2 Time Delivery Rate 07/06/18 97.3 101 18 157/70 95 02:16 (99) 07/05/18 Room Air 14:00 Intake and Output 07/05/18 07/05/18 07/06/18 1414:59 22:59 06:59 IntakeIntake Total 835 ml 580 ml 1314 ml OutputOutput Total 700 ml 600 ml 300 ml BalanceBalance 135 ml -20 ml 1014 ml Exam General: Patient is laying in bed and answers questions appropriately. bitemporal wasting appreciated Neck: Supple, nontender, midline Respiratory: Clear to auscultation bilaterally. no wheezing Cardiovascular: regular rate and rhythm, no obvious murmurs Gastrointestinal: soft non-tender to palpation, bowel sounds heard. Neurological: Moves all extremities spontaneously Skin: No new skin lesions Results Results 24hrs Laboratory Tests Test 07/05/18 09:36 07/05/18 21:53 07/06/18 04:46 Bedside Glucose 146 143 Sodium Level 138 Potassium Level 4.2 Chloride Level 109 # Carbon Dioxide Level 19 L Anion Gap 10 Blood Urea Nitrogen 53 H Creatinine 0.49 Est Glomerular Filtrat Rate mL/min > 60 Glucose Level 131 Calcium Level 9.0 Phosphorus Level 3.2 Magnesium Level 2.3 Triglycerides Level 166 H Medications Medication Current Medications IV Flush (NS 3 ml) 3 ml PER PROTOCOL IV ; Start 06/10/18 at 18:00 Lorazepam (Ativan) 1 mg Q4H PRN IV anxiety Last administered on 06/12/18at 15:28; Admin Dose 1 MG; Start 06/11/18 at 21:30 IV Flush (NS 10 ml) 10 ml PRN PRN IV IV PROTOCOL; Start 06/16/18 at 17:00 Methylnaltrexone [place] (Relistor) 12 mg Q48H SC ; Start 06/17/18 at 08:30 Phenol (Chloraseptic Throat [place]) 2 spray Q2H PRN [place] SORE THROAT Last administered on 06/17/18at 21:23; Admin Dose 2 SPRAY; Start 06/17/18 at 11:30 Morphine Sulfate (morphine) 2 mg Q4H PRN IV SEVERE PAIN LEVEL 7-10 Last administered on 07/02/18 21:17; Admin Dose 2 MG; Start 06/21/18 at 21:00 Bisacodyl (Dulcolax Supp) 10 mg DAILY PRN [place] CONSTIPATION Last administered on 07/01/18 10:53; Admin Dose 10 MG; Start 06/25/18 at 12:00 Total Parenteral Nutrition 1,000 ml @ 60 mls/hr [id number] IV Last administered on 07/06/18 06:27; Admin Dose 60 MLS/HR; Start 06/26/18 at 20:00 Fat Emulsion Intravenous 250 ml @ 10.417 mls/ hr Q24H IV Last administered on 07/03/18 15:25; Admin Dose 10.417 MLS/HR; Start 06/27/18 at 16:00; Status Hold Diagnostic Test (Pha) (Accu-Chek) 1 ea Q12 XX Last administered on 07/05/18 09:37; Admin Dose 1 EA; Start 06/27/18 at 21:00 Diphenhydramine HCl (Benadryl) 25 mg Q6H PRN IV ALLERGIC REACTION; Start 06/29/18 at 11:00 Dexamethasone 20 mg/Dextrose 55 ml @ 252 mls/hr Q6H PRN IVPB ALLERGIC REACTION; Start 06/29/18 at 11:00 Sodium Chloride 1,000 ml @ 20 mls/hr Q24H IV Last administered on 07/05/18 05:13; Admin Dose 75 MLS/HR; Start 07/04/18 at 08:30 Prochlorperazine (Compazine Inj) 5 mg Q4H PRN IV NAUSEA AND/OR VOMITING Last administered on 07/04/18 16:19; Admin Dose 5 MG; Start 07/04/18 at 11:00 Ondansetron HCl 8 mg/Sodium Chloride 54 ml @ 216 mls/hr Q6H PRN IV NAUSEA AND/OR VOMITING Last administered on 07/05/18 23:18; Admin Dose 216 MLS/HR; Start 07/04/18 at 11:30 Ketorolac Tromethamine (Toradol) 30 mg Q6H PRN IV PAIN LEVEL 1-3 Last admi nistered on 07/04/18 19:27; Admin Dose 30 MG; Start 07/04/18 at 17:00; Stop 07/07/18 at 16:59 Famotidine (Pepcid Iv) 20 mg BID IV Last administered on 07/05/18at 21:47; Admin Dose 20 MG; Start 07/05/18 at 11:00 TOBI THOMAS MD Jul 06, 2018 09:08
[2018-07-06] MEDS: ACCU-CHEK XX SCH ×2 (09:14→21:57)
[2018-07-06] MEDS: FAMOTIDINE 20 MG INJ IV SCH ×2 (09:14→21:47)
--- NOTE | 2018-07-06 11:15 | PN ---
Date/Time of Note Date/Time of Note DATE: 07/06/18 TIME: 11:01 Assessment/Plan Lines/Catheters IV C[facility]ter Type (from [facility]): PICC Line Ramsey in Place (from Nrs): No Assessment/Plan Chief Complaint/Hosp Course 1. CT with emphysematous gastritis, portal venous air, thickening of pylorus and duodenal bulb, thick-walled gallbladder, mesenteric inflammation in the u pper abdomen with free fluid. Repeat CT noted with improvement of emphysematous gastritis; EGD w stent placement 06/21/18; 04/06/19 status post gastrojejunostomy, resection of right ovarian mass and partial omentectomy at [facility] by Nausea and vomiting intermittent. Patient agreeable for feeding tube. Dr. Calle to contact Dr. Suarez for possible GJtube. UGI noted with patent stent but continues to have intermittent vomiting. -possible gj tube placement (will coordinate w gi) -Continue liquid diet as tolerated -Per gi>antiemetics/motility agents -Supportive measures -Ambulate 2. 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 Previous history of perforated duodenal ulcer and obstruction favors site of primary tumor in the upper GI tract. -Per oncology> status post chemo cycle 1; subsequent chemo cycles per oncology -pending rocío-cath placement 3. Anemia -Monitor 4. Constipation: Improved -Optimize bowel regimen as able 5. Nausea and vomiting: Improved -as above 6. Poor nutrition: Oral and TPN -As above Thank you. Patient seen and examined in collaboration with Dr. Ag Calle. Subjective 24 Hr Interval Summary UGI noted with patent stent. Continues to have intermittent vomiting. No fevers, chills, sob, congested cough, cp, palpitations, cross, dizziness, d/dysuria. Exam/Review of Systems Vital Signs Vitals Vital Signs Date Temp Pulse Resp B/P (MAP) Pulse Ox O2 O2 Flow FiO2 Time Delivery Rate 07/06/18 97.3 101 18 157/70 95 02:16 (99) 07/05/18 Room Air 14:00 Intake and Output 07/05/18 07/05/18 07/06/18 1515:00 23:00 07:00 IntakeIntake Total 835 ml 580 ml 1314 ml OutputOutput Total 700 ml 600 ml 300 ml BalanceBalance 135 ml -20 ml 1014 ml Exam Free Text/Dictation Constitutional: alert, oriented, frail Psych: Normal mood Head: normocephalic, atraumatic Eyes: nl conjunctiva, EOMI, PERRL; No icteric ENMT: nl external ears & nose, nl lips & teeth, mucosa pink and moist Neck: supple, non-tender; No jvd Respiratory: normal air movement; No congested cough, No labored breathing, No wheezing Cardiovascular: regular rate and rhythm; No edema Gastrointestinal: soft, tender (minimal), minimally distended No rebound or guarding Musculoskeletal: nl extremities to inspection; No joint tenderness Extremities: normal pulses; No calf tenderness, No edema Neurological: nl mental status, nl speech, nl strength Skin: nl turgor; No rash or lesions, No diaphoresis Lymph: nl lymph nodes Results Result Diagram: 07/04/18 0507 07/06/18 0446 IVELISSE CEJA NP Jul 06, 2018 11:12
--- NOTE | 2018-07-06 12:31 | CONS ---
Assessment/Plan Assessment/Plan Hospital Course (Demo Recall) unfortunate 47 yo with metastatic gastric ca. admitted with N/V/abdo pain. s/p EGD and metal stent placed across the malignant stricture of the antrum of the stomach and also first part of the duodenum. #gastric ca -biopsy from EGD and reports from outside facilities are c/w gastric ca signet ring features. unclear why pt thought it was ovarian ca, have called Dr Mcdonald's office as well to update him -I discussed chemo with pt including schedule which is every 2 weeks as an outpt after cycle 1. side effects include but not limited to nausea, fatigue, myelosuppression, infection, neuropathy, cold sensitivity, mucositis, she verbalized understanding and consented to start -her 2 testing and PDL1 to be added to path to see if she is a candidate for herceptin along with FOLFOX -needs mediport prior to discharge, she has PICC now -CHEMO STARTED 06/29/18, has completed the 46 hr infusion, next tx due 07/13/18 -Dr Suarez also informed me she has motility issues due to tumor infiltration of stomach and stent will not allow her to eat. have communicated with Dr Calle if maybe a j tube can help. will reassess in a few days -G tube likely to be placed by GI Thank you Dr Lee and Dr Landeros for allowing us to participate in the care of this pleasant pt Consultation Date/Type/Reason Admit Date/Time Jun 10, 2018 at 18:42 Initial Consult Date 06/11/18 Requesting Provider: ELMER LEE MD Date/Time of Note DATE: 07/06/18 TIME: 12:30 24 HR Interval Summary Free Text/Dictation pt with continued intermittent nausea and vomiting G tube vs J tube being discussed Exam/Review of Systems Exam Vitals Vital Signs Date Temp Pulse Resp B/P (MAP) Pulse Ox O2 O2 Flow FiO2 Time Delivery Rate 07/06/18 97.3 101 18 157/70 95 02:16 (99) 07/05/18 Room Air 14:00 Intake and Output 07/05/18 07/05/18 07/06/18 1515:00 23:00 07:00 IntakeIntake Total 835 ml 580 ml 1314 ml OutputOutput Total 700 ml 600 ml 300 ml BalanceBalance 135 ml -20 ml 1014 ml Results Result Diagram: 07/04/18 0507 07/06/18 0446 Results 24hrs Laboratory Tests Test 07/05/18 21:53 07/06/18 04:46 07/06/18 09:13 Bedside Glucose 143 157 Sodium Level 138 Potassium Level 4.2 Chloride Level 109 # Carbon Dioxide Level 19 L Anion Gap 10 Blood Urea Nitrogen 53 H Creatinine 0.49 Est Glomerular Filtrat Rate mL/min > 60 Glucose Level 131 Calcium Level 9.0 Phosphorus Level 3.2 Magnesium Level 2.3 Triglycerides Level 166 H Medications Medication Current Medications IV Flush (NS 3 ml) 3 ml PER PROTOCOL IV ; Start 06/10/18 at 18:00 Lorazepam (Ativan) 1 mg Q4H PRN IV anxiety Last administered on 06/12/18 15:28; Admin Dose 1 MG; Start 06/11/18 at 21:30 IV Flush (NS 10 ml) 10 ml PRN PRN IV IV PROTOCOL; Start 06/16/18 at 17:00 Methylnaltrexone [place] (Relistor) 12 mg Q48H SC ; Start 06/17/18 at 08:30 Phenol (Chloraseptic Throat [place]) 2 spray Q2H PRN MT SORE THROAT Last administered on 06/17/18at 21:23; Admin Dose 2 SPRAY; Start 06/17/18 at 11:30 Morphine Sulfate (morphine) 2 mg Q4H PRN IV SEVERE PAIN LEVEL 7-10 Last administered on 07/02/18 21:17; Admin Dose 2 MG; Start 06/21/18 at 21:00 Bisacodyl (Dulcolax Supp) 10 mg DAILY PRN [place] CONSTIPATION Last administered on 07/01/18 10:53; Admin Dose 10 MG; Start 06/25/18 at 12:00 Total Parenteral Nutrition 1,000 ml @ 60 mls/hr [id number] IV Last administered on 07/06/18 06:27; Admin Dose 60 MLS/HR; Start 06/26/18 at 20:00 Fat Emulsion Intravenous 250 ml @ 10.417 mls/ hr Q24H IV Last administered on 07/03/18 15:25; Admin Dose 10.417 MLS/HR; Start 06/27/18 at 16:00; Status Hold Diagnostic Test (Pha) (Accu-Chek) 1 ea Q12 XX Last administered on 07/06/18 09:14; Admin Dose 1 EA; Start 06/27/18 at 21:00 Diphenhydramine HCl (Benadryl) 25 mg Q6H PRN IV ALLERGIC REACTION; Start 06/29/18 at 11:00 Dexamethasone 20 mg/Dextrose 55 ml @ 252 mls/hr Q6H PRN IVPB ALLERGIC REACTION; Start 06/29/18 at 11:00 Prochlorperazine (Compazine Inj) 5 mg Q4H PRN IV NAUSEA AND/OR VOMITING Last administered on 07/04/18 16:19; Admin Dose 5 MG; Start 07/04/18 at 11:00 Ondansetron HCl 8 mg/Sodium Chloride 54 ml @ 216 mls/hr Q6H PRN IV NAUSEA AND/OR VOMITING Last administered on 07/05/18at 23:18; Admin Dose 216 MLS/HR; Start 07/04/18 at 11:30 Ketorolac Tromethamine (Toradol) 30 mg Q6H PRN IV PAIN LEVEL 1-3 Last administered on 07/04/18 19:27; Admin Dose 30 MG; Start 07/04/18 at 17:00; Stop 07/07/18 at 16:59 Famotidine (Pepcid Iv) 20 mg BID IV Last administered on 07/06/18 09:14; Admin Dose 20 MG; Start 07/05/18 at 11:00 INCK VARELA Jul 06, 2018 12:31
[2018-07-06 15:30] VITALS: BP 118/58; PULSE 104; RESP 18
[2018-07-06 21:19] VITALS: BP 143/64; PULSE 118; RESP 18
[2018-07-07] VITALS (8 sets, daily range): BP systolic 108–142; BP diastolic 54–80; PULSE 108–133; RESP 17–18
[2018-07-07] MEDS: METHYLNALTREXONE 12 MG/0.6 ML VIAL SC SCH (08:30)
[2018-07-07] MEDS: ACCU-CHEK XX SCH ×2 (09:04→20:05)
[2018-07-07] MEDS: FAMOTIDINE 20 MG INJ IV SCH ×2 (09:04→20:02)
--- NOTE | 2018-07-07 09:15 | PN ---
Date/Time of Note Date/Time of Note DATE: 07/07/18 TIME: 09:15 Assessment/Plan VTE Prophylaxis Risk score (from Nsg)>0 risk: 6 SCD applied (from Nsg): Yes Pharmacological prophylaxis: NA/contraindicated Pharm contraindication: bleeding Lines/Catheters IV Catheter Type (from Nrsg): PICC Line Central line still needed: Yes Urinary Cath still in place: No Assessment/Plan Assessment/Plan 1. Persistent Nausea with vomiting - Still not tolerating enough PO intake and will proceed with Jtube placement tomorrow. Cardiology consulted for clearance and appreciate consultation. - Continue Pepcid and antiemetic - dietary for TPN recommendations - GI and Surgery on board and appreciate recommendations 2. Partial obstructive gastric outlet - Surgery on board and appreciate recommendations. - s/p placement of stent by GI - CT scan showing gastric thickening and emphysematous gastritis concerning for cancer vs necrosis with likely Gastric outlet obstruction, ovarian mass, possible abscess, etc. 3. 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 Completed first round of chemotherapy and will need to follow up as outpatient for further treatment - Will place portacath once patients vomiting resolves given IR concerned for aspiration in setting of N/V - Patient's prior oncologist is Dr Mae at [facility]. but she wishes to follow up with Dr. Vick now. 4. JAMAL - resolved 5. PUD - GI on board - Pepcid BID 6. Constipation - bowel regimen as tolerated 7. Disposition - Plans for J tube placement tomorrow. Evaluation completed by Cardiology and okay to proceed given benefits outweigh risks Result Diagram: 07/04/18 0507 07/07/18 0430 Results 24hrs Laboratory Tests Test 07/06/18 21:56 07/07/18 04:30 07/07/18 09:02 Bedside Glucose 148 199 Sodium Level 136 Potassium Level 3.8 Chloride Level 103 Carbon Dioxide Level 18 L Anion Gap 15 H Blood Urea Nitrogen 52 H Creatinine 0.59 Est Glomerular Filtrat Rate mL/min > 60 Glucose Level 150 Calcium Level 9.6 Phosphorus Level 3.3 Magnesium Level 2.1 Triglycerides Level 183 H Subjective 24 Hr Interval Summary Free Text/Dictation Patient able to tolerate a small amount of liquids but still with persistent nausea and vomiting. Still with sinus tachycardia but cleared for J tube placement by cardiology. Exam/Review of Systems Exam Vitals Vital Signs Date Temp Pulse Resp B/P (MAP) Pulse Ox O2 O2 Flow FiO2 Time Delivery Rate 07/07/18 97.9 117 17 120/71 98 07:45 (87) 07/06/18 Room Air 15:30 Intake and Output 07/06/18 07/06/18 07/07/18 1515:00 23:00 07:00 IntakeIntake Total 240 ml 1220 ml 700 ml OutputOutput Total 200 ml 850 ml BalanceBalance 40 ml 370 ml 700 ml Exam General: Patient is laying in bed and answers questions appropriately. bitemporal wasting appreciated Neck: Supple, nontender, midline Respiratory: Clear to auscultation bilaterally. no wheezing Cardiovascular: regular rate and rhythm, no obvious murmurs Gastrointestinal: soft non-tender to palpation, bowel sounds heard. Neurological: Moves all extremities spontaneously Skin: No new skin lesions Results Results 24hrs Laboratory Tests Test 07/06/18 21:56 07/07/18 04:30 07/07/18 09:02 Bedside Glucose 148 199 Sodium Level 136 Potassium Level 3.8 Chloride Level 103 Carbon Dioxide Level 18 L Anion Gap 15 H Blood Urea Nitrogen 52 H Creatinine 0.59 Est Glomerular Filtrat Rate mL/min > 60 Glucose Level 150 Calcium Level 9.6 Phosphorus Level 3.3 Magnesium Level 2.1 Triglycerides Level 183 H Medications Medication Current Medications IV Flush (NS 3 ml) 3 ml PER PROTOCOL IV ; Start 06/10/18 at 18:00 Lorazepam (Ativan) 1 mg Q4H PRN IV anxiety Last administered on 06/12/18at 15:28; Admin Dose 1 MG; Start 06/11/18 at 21:30 IV Flush (NS 10 ml) 10 ml PRN PRN IV IV PROTOCOL; Start 06/16/18 at 17:00 Methylnaltrexone [place] (Relistor) 12 mg Q48H SC ; Start 06/17/18 at 08:30 Phenol (Chloraseptic Throat [place]) 2 spray Q2H PRN [place] SORE THROAT Last administered on 06/17/18at 21:23; Admin Dose 2 SPRAY; Start 06/17/18 at 11:30 Morphine Sulfate (morphine) 2 mg Q4H PRN IV SEVERE PAIN LEVEL 7-10 Last administered on 07/02/18 21:17; Admin Dose 2 MG; Start 06/21/18 at 21:00 Bisacodyl (Dulcolax Supp) 10 mg DAILY PRN [place] CONSTIPATION Last administered on 07/01/18 10:53; Admin Dose 10 MG; Start 06/25/18 at 12:00 Total Parenteral Nutrition 1,000 ml @ 60 mls/hr [id number] IV Last administered on 07/06/18 23:58; Admin Dose 60 MLS/HR; Start 06/26/18 at 20:00 Fat Emulsion Intravenous 250 ml @ 10.417 mls/ hr Q24H IV Last administered on 07/03/18 15:25; Admin Dose 10.417 MLS/HR; Start 06/27/18 at 16:00; Status Hold Diagnostic Test (Pha) (Accu-Chek) 1 ea Q12 XX Last administered on 07/07/18 09:04; Admin Dose 1 EA; Start 06/27/18 at 21:00 Diphenhydramine HCl (Benadryl) 25 mg Q6H PRN IV ALLERGIC REACTION; Start 06/29/18 at 11:00 Dexamethasone 20 mg/Dextrose 55 ml @ 252 mls/hr Q6H PRN IVPB ALLERGIC REACTION; Start 06/29/18 at 11:00 Prochlorperazine (Compazine Inj) 5 mg Q4H PRN IV NAUSEA AND/OR VOMITING Last administered on 07/04/18 16:19; Admin Dose 5 MG; Start 07/04/18 at 11:00 Ondansetron HCl 8 mg/Sodium Chloride 54 ml @ 216 mls/hr Q6H PRN IV NAUSEA AND/OR VOMITING Last administered on 07/05/18 23:18; Admin Dose 216 MLS/HR; Start 07/04/18 at 11:30 Ketorolac Tromethamine (Toradol) 30 mg Q6H PRN IV PAIN LEVEL 1-3 Last administered on 07/04/18 19:27; Admin Dose 30 MG; Start 07/04/18 at 17:00; Stop 07/07/18 at 16:59 Famotidine (Pepcid Iv) 20 mg BID IV Last administered on 07/07/18 09:04; Admin Dose 20 MG; Start 07/05/18 at 11:00 TOBI THOMAS MD Jul 07, 2018 09:15
--- NOTE | 2018-07-07 09:16 | PN ---
DATE: 07/07/2018 SUBJECTIVE: The patient is stable, continues to have nausea, vomiting. The patient is pending event ual PEG tube placement. No other events noted. OBJECTIVE: VITAL SIGNS: Blood pressure is 120/71, pulse 117, respirations 17, temperature 97.9. HEENT: Head is normocephalic. NECK: Supple. HEART: Regular rate. LUNGS: Show diminished breath sounds at the base. ABDOMEN: Soft, nontender to palpation. No rebound or guarding. EXTREMITIES: Negative for clubbing, cyanosis, no edema. DERMATOLOGIC: No rashes. MUSCULOSKELETAL: No joint effusion. NEUROLOGIC: No change in exam. MEDICATIONS: Reviewed. LABORATORY DATA: On 07/07/2018 was reviewed. ASSESSMENT AND PLAN: 1. Acute hyponatremia, etiology secondary to volume depletion. The patient's sodium levels have imp roved with IV fluids. Will continue to monitor. 2. Acute kidney injury, etiology secondary to hemodynamics. Renal function is improved. Continue t o monitor. The patient does have underlying azotemia likely due to hypercatabolic state and TPN. 3. Anemia. Continue to monitor hemoglobin and hematocrit levels. 4. Mineral bone disorder, monitor calcium and phosphorus levels. 5. Nausea, vomiting secondary to chemotherapy. Gastric malignancy. The patient is pending possible G-tube placement. Continue to monitor. 6. Gastric outlet obstruction. The patient is status post EGD with stent placement. 7. Metastatic gastric carcinoma. Continue chemotherapy. 8. Nutrition via TPN. Dictated By: BRAYDEN RED DO NR/NTS Conf#: [id number] DID#: [id number] CC: ELMER CAVAZOS MD;*EndCC*
--- NOTE | 2018-07-07 10:52 | PREAC ---
Date/Time of Note Date/Time of Note DATE: 07/07/18 TIME: 10:49 Anesthesia Eval and Record Evaluation Time Pre-Procedure Interview DATE: 07/07/18 TIME: 10:49 Age 47 Sex female NPO: 8 hrs (instructed patient NPO starting midnight) Preoperative diagnosis gastric cancer, intractable nausea and vomiting, TPN dependency, malnutrition Planned procedure laparoscopic possible open feeding tube placement Past Medical History Past Medical History: Includes Renal: JAMAL GI: Other (gastric cancer s/p EGD with stent placement and chemo, bilat ovarian masses (mets), nausea and vomiting) Heme: Anemia Psych: Depression Surgery & Anesthesia Issues Hx of PONV Meds Anticoagulation: No Beta Hayde within 24 hr: No Reason Beta Hayde not given: Pt. not on B-Hayde No Active Prescriptions or Reported Meds Current Medications IV Flush (NS 3 ml) 3 ml PER PROTOCOL IV ; Start 06/10/18 at 18:00 Lorazepam (Ativan) 1 mg Q4H PRN IV anxiety Last administered on 06/12/18at 15:28; Admin Dose 1 MG; Start 06/11/18 at 21:30 IV Flush (NS 10 ml) 10 ml PRN PRN IV IV PROTOCOL; Start 06/16/18 at 17:00 Methylnaltrexone [place] (Relistor) 12 mg Q48H SC ; Start 06/17/18 at 08:30 Phenol (Chloraseptic Throat [place]) 2 spray Q2H PRN [place] SORE THROAT Last administered on 06/17/18at 21:23; Admin Dose 2 SPRAY; Start 06/17/18 at 11:30 Morphine Sulfate (morphine) 2 mg Q4H PRN IV SEVERE PAIN LEVEL 7-10 Last administered on 07/02/18 21:17; Admin Dose 2 MG; Start 06/21/18 at 21:00 Bisacodyl (Dulcolax Supp) 10 mg DAILY PRN [place] CONSTIPATION Last administered on 07/01/18 10:53; Admin Dose 10 MG; Start 06/25/18 at 12:00 Total Parenteral Nutrition 1,000 ml @ 60 mls/hr [id number] IV Last administered on 07/06/18 23:58; Admin Dose 60 MLS/HR; Start 06/26/18 at 20:00 Fat Emulsion Intravenous 250 ml @ 10.417 mls/ hr Q24H IV Last administered on 07/03/18 15:25; Admin Dose 10.417 MLS/HR; Start 06/27/18 at 16:00; Status Hold Diagnostic Test (Pha) (Accu-Chek) 1 ea Q12 XX Last administered on 07/07/18 09 :04; Admin Dose 1 EA; Start 06/27/18 at 21:00 Diphenhydramine HCl (Benadryl) 25 mg Q6H PRN IV ALLERGIC REACTION; Start 06/29/18 at 11:00 Dexamethasone 20 mg/Dextrose 55 ml @ 252 mls/hr Q6H PRN IVPB ALLERGIC REACTION; Start 06/29/18 at 11:00 Prochlorperazine (Compazine Inj) 5 mg Q4H PRN IV NAUSEA AND/OR VOMITING Last administered on 07/04/18 16:19; Admin Dose 5 MG; Start 07/04/18 at 11:00 Ondansetron HCl 8 mg/Sodium Chloride 54 ml @ 216 mls/hr Q6H PRN IV NAUSEA AND/OR VOMITING Last administered on 07/05/18 23:18; Admin Dose 216 MLS/HR; Start 07/04/18 at 11:30 Ketorolac Tromethamine (Toradol) 30 mg Q6H PRN IV PAIN LEVEL 1-3 Last administered on 07/04/18 19:27; Admin Dose 30 MG; Start 07/04/18 at 17:00; Stop 07/07/18 at 16:59 Famotidine (Pepcid Iv) 20 mg BID IV Last administered on 07/07/18 09:04; Admin Dose 20 MG; Start 07/05/18 at 11:00 Meds reviewed: Yes Allergies Coded Allergies: No Known Allergy (Unverified , 06/10/18) Allergies Reviewed: Yes Labs/Studies Labs Reviewed: Reviewed by anesthesiologist Result Diagram: 07/04/18 0507 07/07/18 0430 Laboratory Tests 07/07/18 04:30 test: Negative Pre-procedure Exam Last vitals Vital Signs Date Temp Pulse Resp B/P (MAP) Pulse Ox O2 O2 Flow FiO2 Time Delivery Rate 07/07/18 108 18 112/74 99 10:05 (87) 07/07/18 97.9 07:45 07/06/18 Room Air 15:30 Airway: Adequate mouth opening, Adequate thyromental dist Mallampati: Mallampati I Teeth: Normal Lung: Normal Heart: Normal ASA Physical Status ASA physical status: 3 (cancer) Emergency: None Planned Anesthetic General/MAC: ETT Nerve block: TAP (bilateral) Planned Pain Management Single shot nerve block, Parenteral pain med, Local by surgeon Pre-operative Attestations Prior to commencing anesthesia and surgery, the patient was re-evaluated, there was verification of: *The patient's identity *The results of appropriate recent lab work and preoperative vital signs *The above evaluation not changing prior to induction *Anesthetic plan, risk benefits, alternative and complications discussed with patient/family; questions answered; patient/family understands, accepts and wishes to proceed. SOCRATES JASSO Jul 07, 2018 10:52
--- NOTE | 2018-07-07 11:06 | PN ---
Date/Time of Note Date/Time of Note DATE: 07/07/18 TIME: 10:54 Assessment/Plan Lines/Catheters IV Catheter Type (from Nrs): PICC Line Ramsey in Place (from Nrs): No Assessment/Plan Chief Complaint/Hosp Course 1. CT with emphysematous gastritis, portal venous air, thickening of pylorus and duodenal bulb, thick-walled gallbladder, mesenteric inflammation in the u pper abdomen with free fluid. Repeat CT noted with improvement of emphysematous gastritis; EGD w stent placement 06/21/18; 04/06/19 status post gastrojejunostomy, resection of right ovarian mass and partial omentectomy at [facility] by . UGI noted with patent stent but cont inues to have intermittent vomiting. Nausea and vomiting intermittent. Patient agreeable for feeding tube. Dr. Calle to contact Dr. Suarez for possible GJtube as J-tube will not resolve vomiting, G-tube ideal for gastric content emptying and prevent further vomiting-GJ tube unable to be done by GI -Feeding tube placement tomorrow -Continue liquid diet as tolerated -Per gi>antiemetics/motility agents -Supportive measures -Ambulate 2. 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 Previous history of perforated duodenal ulcer and obstruction favors site of primary tumor in the upper GI tract. -Per oncology> status post chemo cycle 1; subsequent chemo cycles per oncology -pending rocío-cath placement 3. Anemia -Monitor 4. Constipation: Improved -Optimize bowel regimen as able 5. Nausea and vomiting: Improved -as above 6. Poor nutrition: Oral and TPN -As above 7. Lightheadedness and persistent tachycardia: Likely secondary to volume depletion/dehydration -Cardiology consult and management for clearance for feeding tube placement -IV fluids Thank you. Patient seen and examined in collaboration with Dr. Ag Calle. Subjective 24 Hr Interval Summary Tachycardia. Lightheadedness. No fevers, chills, sob, congested cough, cp, pa lpitations, cross, dizziness, diarrhea, dysuria. Exam/Review of Systems Vital Signs Vitals Vital Signs Date Temp Pulse Resp B/P (MAP) Pulse Ox O2 O2 Flow FiO2 Time Delivery Rate 07/07/18 108 18 112/74 99 10:05 (87) 07/07/18 97.9 07:45 07/06/18 Room Air 15:30 Intake and Output 07/06/18 07/06/18 07/07/18 1515:00 23:00 07:00 IntakeIntake Total 240 ml 1220 ml 700 ml OutputOutput Total 200 ml 850 ml BalanceBalance 40 ml 370 ml 700 ml Exam Free Text/Dictation Constitutional: alert, oriented, frail Psych: Normal mood Head: normocephalic, atraumatic Eyes: nl conjunctiva, EOMI, PERRL; No icteric ENMT: nl external ears & nose, nl lips & teeth, mucosa pink and moist Neck: supple, non-tender; No jvd Respiratory: normal air movement; No congested cough, No labored breathing, No wheezing Cardiovascular: Tachycardic No edema Gastrointestinal: soft, tender (minimal), minimally distended No rebound or guarding Musculoskeletal: nl extremities to inspection; No joint tenderness Extremities: normal pulses; No calf tenderness, No edema Neurological: nl mental status, nl speech, nl strength Skin: nl turgor; No rash or lesions, No diaphoresis Lymph: nl lymph nodes Results Result Diagram: 07/04/18 0507 07/07/18 0430 IVELISSE CEJA NP Jul 07, 2018 11:06
[2018-07-07] MEDS: SOD CHLORIDE 0.9% 1,000 ML IV SCH (11:45)
--- NOTE | 2018-07-07 13:01 | RADRPT ---
Echocardiogram Report Patient Name: Ihsan DELUNA ID: [id number] : 1970 (48y )Study Date: 07/07/2018 11:30:25 AM Gender: FAccession #: [id number] Tech: Marina [facility] Location: [address] Ref.Physician: TOBI THOMAS Height(Cm): BSA: Weight(Kg): Quality: AdequateAccount #: Procedures: Echocardiographic Report: Transthoracic echocardiogram with complete 2D, M-Mode, and doppler examination. Indications: Evaluate Left Ventricular function. Measurements: 2D/M Mode Doppler Measurement Value Normal Range Measurement Value Normal Range LVIDd 2D 4.0 [ 3.8 - 5.2 ] cm AV Peak Ben 0.9 [ 100.0 - 170.0 ] cm/sec LVIDs 2D 3.4 [ 2.2 - 3.5 ] cm AV Peak PG 3.0 [ 2.0 - 9.0 ] mmHg LVPWd 2D 0.9 [ 0.6 - 0.9 ] cm LVOT Peak Ben 0.6 [ 70.0 - 110.0 ] cm/sec IVSd 2D 0.9 [ 0.6 - 0.9 ] cm LVOT Peak PG 2.0 [ 2.0 - 6.0 ] mmHg AoR Diam 2D 2.8 [ 2.3 - 3.1 ] cm MV E Peak Ben 0.6 [ 60.0 - 130.0 ] cm/sec EDV 2D 68.3 [ 46.0 - 106.0 ] ml MV A Peak Ben 1.0 [ 100.0 - 120.0 ] cm/sec ESV 2D 48.5 [ 14.0 - 42.0 ] ml MV E/A 0.6 [ 0.8 - 1.5 ] ratio EF 2D 29.0 [ 54.0 - 74.0 ] percent MV Decel Time 88 [ 104 - 258 ] msec LA Dimen 2D 2.5 [ 2.7 - 3.8 ] cm Lat E` Ben 0.1 [ 10.0 - 15.0 ] cm/sec Lateral E/E` 8.1 [ 1.0 - 2.0 ] ratio Med E` Ben 0.1 cm/sec MV E/A 0.6 [ 0.8 - 1.5 ] ratio TR Peak Ben 2.8 [ 100.0 - 280.0 ] cm/sec TR Peak PG 32.0 mmHg RVSP 35.0 [ 10.0 - 36.0 ] mmHg Findings: Left Ventricle: Normal left ventricular cavity size. Normal left ventricular wall thickness. Mild left ventricular systolic dysfunction. Ejection fraction is visually estimated at 45 %. Tissue Doppler/Mitral Doppler indices are consistent with impaired relaxation (Stage I diastolic dysfunction). Right Ventricle: Normal right ventricular size. Normal right ventricular systolic function. Left Atrium: The left atrium is normal in size. Right Atrium: The right atrium is normal in size. Mitral Valve: Mild mitral leaflet calcification. Mild mitral annular calcification. Trace mitral regurgitation. Aortic Valve: No significant aortic stenosis or insufficiency. Aortic cusps appear mildly calcified. Tricuspid Valve: Normal appearance and function of the tricuspid valve with trace physiologic regurgitation. Estimated peak PA systolic pressure 35 mmHg. Pericardium: Normal pericardium with no significant pericardial effusion. Aorta: Normal aortic root. IVC: Normal size and normal respiratory collapse consistent with normal right atrial pressure. Conclusions: Normal left ventricular cavity size. Normal left ventricular wall thickness. Mild left ventricular systolic dysfunction. Ejection fraction is visually estimated at 45 %. Tissue Doppler/Mitral Doppler indices are consistent with impaired relaxation (Stage I diastolic dysfunction). Normal right ventricular size. Normal right ventricular systolic function. The left atrium is normal in size. The right atrium is normal in size. No significant valvular stenosis or regurgitation seen. Normal pericardium with no significant pericardial effusion. Electronically Signed By: Lobo Duckworth 2018-07-07 13:01:13 PST
--- NOTE | 2018-07-07 13:16 | CONS ---
Assessment/Plan Assessment/Plan Hospital Course (Demo Recall) Preoperative cardiac risk stratification Intractable nausea vomiting requiring J-tube Ovarian cancer Low normal/mildly decreased left ventricular ejection fraction 45-50% Sinus tachycardia Poor p.o. intake with likely hypovolemia PUD status post gastrectomy -Patient with intractable nausea and vomiting requiring J-tube placement -ECG with sinus tachycardia, otherwise no significant ischemic abnormalities. Echocardiogram with low normal/mildly decreased left ventricular ejection fraction 45-50%. No evidence of pericardial effusion. -Given her risk factors, patient is at an intermediate risk for any untoward cardiac events for procedure. The benefits likely outweigh the risks. Consultation Date/Type/Reason Admit Date/Time Jun 10, 2018 at 18:42 Type of Consult Cardiology Reason for Consultation Preoperative cardiac risk medication Date/Time of Note DATE: 07/07/18 TIME: 13:09 Hx of Present Illness This is a very pleasant 47-year-old female with past medical history of ovarian cancer, PVD status post gastric surgery who was admitted for prolonged hospital stay with intractable nausea and vomiting. Patient has been on TPN. Patient is plan for J-tube placement. Cardiology condition was requested for preoperative cardiac risk stratification. Patient with extreme fatigue. Her oral intake is minimal as per patient and nursing staff. When she ambulates, she denies chest pain but does feel tired and shortness of breath. She otherwise denies any cardiac history in the past. 12 point review of systems was performed with all pertinent positives and nega tives mentioned above and all else is negative Past Medical History Ovarian cancer PUD Home Meds No Active Prescriptions or Reported Meds Medications Current Medications IV Flush (NS 3 ml) 3 ml PER PROTOCOL IV ; Start 06/10/18 at 18:00 Lorazepam (Ativan) 1 mg Q4H PRN IV anxiety Last administered on 06/12/18at 15: 28; Admin Dose 1 MG; Start 06/11/18 at 21:30 IV Flush (NS 10 ml) 10 ml PRN PRN IV IV PROTOCOL; Start 06/16/18 at 17:00 Methylnaltrexone [place] (Relistor) 12 mg Q48H SC ; Start 06/17/18 at 08:30 Phenol (Chloraseptic Throat [place]) 2 spray Q2H PRN [place] SORE THROAT Last administered on 06/17/18at 21:23; Admin Dose 2 SPRAY; Start 06/17/18 at 11:30 Morphine Sulfate (morphine) 2 mg Q4H PRN IV SEVERE PAIN LEVEL 7-10 Last administered on 07/02/18 21:17; Admin Dose 2 MG; Start 06/21/18 at 21:00 Bisacodyl (Dulcolax Supp) 10 mg DAILY PRN [place] CONSTIPATION Last administered on 07/01/18 10:53; Admin Dose 10 MG; Start 06/25/18 at 12:00 Total Parenteral Nutrition 1,000 ml @ 60 mls/hr [id number] IV Last administered on 07/06/18 23:58; Admin Dose 60 MLS/HR; Start 06/26/18 at 20:00 Fat Emulsion Intravenous 250 ml @ 10.417 mls/ hr Q24H IV Last administered on 07/03/18 15:25; Admin Dose 10.417 MLS/HR; Start 06/27/18 at 16:00; Status Hold Diagnostic Test (Pha) (Accu-Chek) 1 ea Q12 XX Last administered on 07/07/18 09:04; Admin Dose 1 EA; Start 06/27/18 at 21:00 Diphenhydramine HCl (Benadryl) 25 mg Q6H PRN IV ALLERGIC REACTION; Start 06/29/18 at 11:00 Dexamethasone 20 mg/Dextrose 55 ml @ 252 mls/hr Q6H PRN IVPB ALLERGIC REACTION; Start 06/29/18 at 11:00 Prochlorperazine (Compazine Inj) 5 mg Q4H PRN IV NAUSEA AND/OR VOMITING Last administered on 07/04/18 16:19; Admin Dose 5 MG; Start 07/04/18 at 11:00 Ondansetron HCl 8 mg/Sodium Chloride 54 ml @ 216 mls/hr Q6H PRN IV NAUSEA AND/OR VOMITING Last administered on 07/05/18 23:18; Admin Dose 216 MLS/HR; Start 07/04/18 at 11:30 Ketorolac Tromethamine (Toradol) 30 mg Q6H PRN IV PAIN LEVEL 1-3 Last administered on 07/04/18 19:27; Admin Dose 30 MG; Start 07/04/18 at 17:00; Stop 07/07/18 at 16:59 Famotidine (Pepcid Iv) 20 mg BID IV Last administered on 3/7/19at 09:04; Admin Dose 20 MG; Start 07/05/18 at 11:00 Sodium Chloride 1,000 ml @ 50 mls/hr Q20H IV Last administered on 07/07/18at 11:45; Admin Dose 50 MLS/HR; Start 07/07/18 at 11:00 Allergies: Coded Allergies: No Known Allergy (Unverified , 06/10/18) Past Surgical History Gastric surgery Past Surgical Hx: endoscopy Family History Significant Family History: no pertinent family hx Social History Alcohol Use: none Smoking Status: Never smoker Drug Use: none Exam/Review of Systems Vital Signs Vitals Vital Signs Date Temp Pulse Resp B/P (MAP) Pulse Ox O2 O2 Flow FiO2 Time Delivery Rate 07/07/18 108 18 112/74 99 10:05 (87) 07/07/18 97.9 07:45 07/06/18 Room Air 15:30 Intake and Output 07/06/18 07/06/18 07/07/18 1515:00 23:00 07:00 IntakeIntake Total 240 ml 1220 ml 700 ml OutputOutput Total 200 ml 850 ml BalanceBalance 40 ml 370 ml 700 ml Exam Constitutional: alert, oriented (Frail, very pleasant, no apparent distress) Head: normocephalic Respiratory: other (Coarse breath sounds bilaterally, no wheezing) Cardiovascular: regular rate and rhythm (S1-S2 heard) Gastrointestinal: soft, bowel sounds, other (Discomfort with palpation, no guarding) Extremities: other (No significant edema) Labs Result Diagram: 07/04/18 0507 07/07/18 0430 Results 24hrs Laboratory Tests Test 07/06/18 21:56 07/07/18 04:30 07/07/18 09:02 Bedside Glucose 148 199 Sodium Level 136 Potassium Level 3.8 Chloride Level 103 Carbon Dioxide Level 18 L Anion Gap 15 H Blood Urea Nitrogen 52 H Creatinine 0.59 Est Glomerular Filtrat Rate mL/min > 60 Glucose Level 150 Calcium Level 9.6 Phosphorus Level 3.3 Magnesium Level 2.1 Triglycerides Level 183 H Imaging Imaging ECG performed today sinus tachycardia 110 bpm, QRS 84 ms, nonspecific ST abnormalities Medications Medications Current Medications IV Flush (NS 3 ml) 3 ml PER PROTOCOL IV ; Start 06/10/18 at 18:00 Lorazepam (Ativan) 1 mg Q4H PRN IV anxiety Last administered on 06/12/18 15:28; Admin Dose 1 MG; Start 06/11/18 at 21:30 IV Flush (NS 10 ml) 10 ml PRN PRN IV IV PROTOCOL; Start 06/16/18 at 17:00 Methylnaltrexone [place] (Relistor) 12 mg Q48H SC ; Start 06/17/18 at 08:30 Phenol (Chloraseptic Throat [place]) 2 spray Q2H PRN [place] SORE THROAT Last administered on 06/17/18 21:23; Admin Dose 2 SPRAY; Start 06/17/18 at 11:30 Morphine Sulfate (morphine) 2 mg Q4H PRN IV SEVERE PAIN LEVEL 7-10 Last administered on 07/02/18 21:17; Admin Dose 2 MG; Start 06/21/18 at 21:00 Bisacodyl (Dulcolax Supp) 10 mg DAILY PRN [place] CONSTIPATION Last administered on 07/01/18 10:53; Admin Dose 10 MG; Start 06/25/18 at 12:00 Total Parenteral Nutrition 1,000 ml @ 60 mls/hr [id number] IV Last administered on 07/06/18 23:58; Admin Dose 60 MLS/HR; Start 06/26/18 at 20:00 Fat Emulsion Intravenous 250 ml @ 10.417 mls/ hr Q24H IV Last administered on 07/03/18 15:25; Admin Dose 10.417 MLS/HR; Start 06/27/18 at 16:00; Status Hold Diagnostic Test (Pha) (Accu-Chek) 1 ea Q12 XX Last administered on 07/07/18 09:04; Admin Dose 1 EA; Start 06/27/18 at 21:00 Diphenhydramine HCl (Benadryl) 25 mg Q6H PRN IV ALLERGIC REACTION; Start 06/29/18 at 11:00 Dexamethasone 20 mg/Dextrose 55 ml @ 252 mls/hr Q6H PRN IVPB ALLERGIC REACTION; Start 06/29/18 at 11:00 Prochlorperazine (Compazine Inj) 5 mg Q4H PRN IV NAUSEA AND/OR VOMITING Last administered on 07/04/18 16:19; Admin Dose 5 MG; Start 07/04/18 at 11:00 Ondansetron HCl 8 mg/Sodium Chloride 54 ml @ 216 mls/hr Q6H PRN IV NAUSEA AND/OR VOMITING Last administered on 07/05/18at 23:18; Admin Dose 216 MLS/HR; Start 07/04/18 at 11:30 Ketorolac Tromethamine (Toradol) 30 mg Q6H PRN IV PAIN LEVEL 1-3 Last administered on 07/04/18at 19:27; Admin Dose 30 MG; Start 07/04/18 at 17:00; Stop 07/07/18 at 16:59 Famotidine (Pepcid Iv) 20 mg BID IV Last administered on 07/07/18at 09:04; Admin Dose 20 MG; Start 07/05/18 at 11:00 Sodium Chloride 1,000 ml @ 50 mls/hr Q20H IV Last administered on 07/07/18at 11:45; Admin Dose 50 MLS/HR; Start 07/07/18 at 11:00 Lobo Duckworth DO Jul 07, 2018 13:16
[2018-07-07] MEDS: PROCHLORPERAZINE 10 MG INJ IV PRN ×2 (15:49→22:16)
[2018-07-07] MEDS: TPN 1,000 ML IV SCH (20:00)
[2018-07-08] VITALS (29 sets, daily range): BP systolic 103–145; BP diastolic 54–72; PULSE 98–151; RESP 14–25
[2018-07-08] MEDS: SOD CHLORIDE 0.9% 1,000 ML IV SCH (05:16)
[2018-07-08] MEDS ORDERED: PROPOFOL 200 MG INJ ONE (07:00)
[2018-07-08] MEDS: PROCHLORPERAZINE 10 MG INJ IV PRN (07:21)
[2018-07-08] MEDS: FAMOTIDINE 20 MG INJ IV SCH ×2 (08:13→20:20)
[2018-07-08] MEDS: ACCU-CHEK XX SCH ×2 (08:45→20:55)
--- NOTE | 2018-07-08 09:00 | PN ---
Date/Time of Note Date/Time of Note DATE: 07/08/18 TIME: 09:00 Assessment/Plan VTE Prophylaxis Risk score (from Nsg)>0 risk: 2 SCD applied (from Nsg): Yes Pharmacological prophylaxis: NA/contraindicated Pharm contraindication: surgical contra Lines/Catheters IV Catheter Type (from Nrsg): PICC Line Central line still needed: Yes Urinary Cath still in place: No Assessment/Plan Assessment/Plan 1. Persistent Nausea with vomiting - improving - only able to tolerate small amounts of Boost breeze. plans for Jtube placement today - cardiology on board and appreciate consultation for clearance for surgical intervention - Continue Pepcid and antiemetic - dietary for TPN recommendations - GI and Surgery on board and appreciate recommendations 2. Partial obstructive gastric outlet - Surgery on board and appreciate recommendations. - s/p placement of stent by GI. Repeat SBFT shows patency of stent - CT scan showing gastric thickening and emphysematous gastritis concerning for cancer vs necrosis with likely Gastric outlet obstruction, ovarian mass, possible abscess, etc. 3. 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 Completed first round of chemotherapy and will need to follow up as outpatient for further treatment - Will place portacath once patients vomiting resolves given IR concerned for aspiration in setting of N/V - Patient's prior oncologist is Dr Mae at [facility]. but she wishes to follow up with Dr. Vick now. 4. JAMAL - resolved 5. PUD - GI on board - Pepcid BID 6. Constipation - bowel regimen as tolerated 7. Disposition - J tube placement today. If not experiencing further N/V, will order portacath placement Result Diagram: 07/04/18 0507 07/08/18 0509 Results 24hrs Laboratory Tests Test 07/07/18 09:02 07/07/18 20:05 07/08/18 05:09 07/08/18 08:42 Bedside Glucose 199 152 161 Sodium Level 133 L Potassium Level 4.0 Chloride Level 104 Carbon Dioxide Level 16 L Anion Gap 13 Blood Urea Nitrogen 57 H Creatinine 0.65 Est Glomerular Filtrat > 60 Rate mL/min Glucose Level 161 Calcium Level 9.7 Phosphorus Level 3.4 Magnesium Level 2.1 Triglycerides Level 182 H Subjective 24 Hr Interval Summary Free Text/Dictation Patient states shes tolerating small amounts of boost breeze but still with poor PO intake. Plans for J tube placement today. Exam/Review of Systems Exam Vitals Vital Signs Date Temp Pulse Resp B/P (MAP) Pulse Ox O2 O2 Flow FiO2 Time Delivery Rate 07/08/18 97.2 113 18 103/56 95 Room Air 08:17 (72) Intake and Output 07/07/18 07/07/18 07/08/18 1515:00 23:00 07:00 IntakeIntake Total 340 ml 1250 ml 1640 ml OutputOutput Total 950 ml 1100 ml 600 ml BalanceBalance -610 ml 150 ml 1040 ml Exam General: Patient is laying in bed and answers questions appropriately. bitemporal wasting appreciated Neck: Supple, nontender, midline Respiratory: Clear to auscultation bilaterally. no wheezing Cardiovascular: regular rate and rhythm, no obvious murmurs Gastrointestinal: soft non-tender to palpation, bowel sounds heard. Neurological: Moves all extremities spontaneously Skin: No new skin lesions Results Results 24hrs Laboratory Tests Test 07/07/18 09:02 07/07/18 20:05 07/08/18 05:09 07/08/18 08:42 Bedside Glucose 199 152 161 Sodium Level 133 L Potassium Level 4.0 Chloride Level 104 Carbon Dioxide Level 16 L Anion Gap 13 Blood Urea Nitrogen 57 H Creatinine 0.65 Est Glomerular Filtrat > 60 Rate mL/min Glucose Level 161 Calcium Level 9.7 Phosphorus Level 3.4 Magnesium Level 2.1 Triglycerides Level 182 H Medications Medication Current Medications IV Flush (NS 3 ml) 3 ml PER PROTOCOL IV ; Start 06/10/18 at 18:00 Lorazepam (Ativan) 1 mg Q4H PRN IV anxiety Last administered on 06/12/18at 15:28; Admin Dose 1 MG; Start 06/11/18 at 21:30 IV Flush (NS 10 ml) 10 ml PRN PRN IV IV PROTOCOL; Start 06/16/18 at 17:00 Methylnaltrexone [place] (Relistor) 12 mg Q48H SC ; Start 06/17/18 at 08:30 Phenol (Chloraseptic Throat [place]) 2 spray Q2H PRN [place] SORE THROAT Last administered on 06/17/18at 21:23; Admin Dose 2 SPRAY; Start 06/17/18 at 11:30 Morphine Sulfate (morphine) 2 mg Q4H PRN IV SEVERE PAIN LEVEL 7-10 Last administered on 07/02/18 21:17; Admin Dose 2 MG; Start 06/21/18 at 21:00 Bisacodyl (Dulcolax Supp) 10 mg DAILY PRN [place] CONSTIPATION Last administered on 07/01/18 10:53; Admin Dose 10 MG; Start 06/25/18 at 12:00 Total Parenteral Nutrition 1,000 ml @ 60 mls/hr [id number] IV Last administered on 07/07/18 20:00; Admin Dose 60 MLS/HR; Start 06/26/18 at 20:00 Fat Emulsion Intravenous 250 ml @ 10.417 mls/ hr Q24H IV Last administered on 07/03/18 15:25; Admin Dose 10.417 MLS/HR; Start 06/27/18 at 16:00; Status Hold Diagnostic Test (Pha) (Accu-Chek) 1 ea Q12 XX Last administered on 07/08/18 08:45; Admin Dose 1 EA; Start 06/27/18 at 21:00 Diphenhydramine HCl (Benadryl) 25 mg Q6H PRN IV ALLERGIC REACTION; Start 06/29/18 at 11:00 Dexamethasone 20 mg/Dextrose 55 ml @ 252 mls/hr Q6H PRN IVPB ALLERGIC REACTION; Start 06/29/18 at 11:00 Prochlorperazine (Compazine Inj) 5 mg Q4H PRN IV NAUSEA AND/OR VOMITING Last administered on 07/08/18 07:21; Admin Dose 5 MG; Start 07/04/18 at 11:00 Ondansetron HCl 8 mg/Sodium Chloride 54 ml @ 216 mls/hr Q6H PRN IV NAUSEA AND/OR VOMITING Last administered on 07/05/18 23:18; Admin Dose 216 MLS/HR; Start 07/04/18 at 11:30 Famotidine (Pepcid Iv) 20 mg BID IV Last administered on 07/08/18 08:13; Admin Dose 20 MG; Start 07/05/18 at 11:00 Sodium Chloride 1,000 ml @ 50 mls/hr Q20H IV Last administered on 07/08/18 05:16; Admin Dose 50 MLS/HR; Start 07/07/18 at 11:00 TOBI THOMAS MD Jul 08, 2018 09:00
--- NOTE | 2018-07-08 09:36 | PN ---
DATE: 07/08/2018 SUBJECTIVE: The patient continues to have nausea, vomiting. Pending possible G-tube placement today . OBJECTIVE: VITAL SIGNS: Blood pressure is 128/63, respirations 20, pulse is 119, temperature 97.0. HEENT: Head is normocephalic. NECK: Supple. HEART: Regular rate. LUNGS: Show diminished breath sounds at the base. ABDOMEN: Soft, nontender to palpation without rebound or guarding. EXTREMITIES: Negative for clubbing, cyanosis, no edema. DERMATOLOGIC: No rashes. MUSCULOSKELETAL: No joint effusion. NEUROLOGIC: No change in exam. MEDICATIONS: Reviewed. LABORATORY DATA: Shows sodium 133, BUN 57, creatinine 0.65. White count 5.2, hemoglobin 10.2, plate let count is 315. ASSESSMENT AND PLAN: 1. Acute hyponatremia, etiology is significant volume depletion. The patient is status post IV flui ds. Sodium level has declined in the last 24 hours. We will continue to monitor. If further declin e, we will reintroduce normal IV fluids. 2. Nonoliguric acute kidney injury, etiology secondary to hemodynamics. Renal function is improved. Continue to monitor. 3. Azotemia. Etiology is multifactorial secondary to hypercatabolic state, in conjunction with necr osis with total parenteral nutrition. 4. Anemia. Monitor hemoglobin and hematocrit levels. 5. Mineral bone disorder, monitor calcium and phosphorus levels. 6. Nausea, vomiting. Continue to monitor. Continue antiemetics. 7. Gastric outlet obstruction. The patient is status post EGD with stent placement. 8. Dysphagia. The patient is pending possible J-tube placement. 9. Metastatic gastric carcinoma. The patient has completed a course of chemotherapy. Continue to m onitor. 10. Nutrition, currently on total parenteral nutrition. Dictated By: BRAYDEN MAHMOOD/LORI Conf#: [id number] DID#: [id number]
[2018-07-08] MEDS: TPN 1,000 ML IV SCH (11:40)
[2018-07-08] MEDS ORDERED: LACTATED RINGER'S 1,000 ML IV ONE (12:30)
[2018-07-08] MEDS ORDERED: LIDOCAINE 2% (MDV) 20 ML INJ ONE (12:49)
[2018-07-08] MEDS ORDERED: BUPIVACAINE 0.5%/EPI (SDV) 30 ML INJ ONE (12:50)
--- NOTE | 2018-07-08 12:53 | PN ---
Date/Time of Note Date/Time of Note DATE: 07/08/18 TIME: 12:49 Assessment/Plan Lines/Catheters IV Catheter Type (from Nrs): PICC Line [place] in Place (from Nrs): No Assessment/Plan Chief Complaint/Hosp Course 1. CT with emphysematous gastritis, portal venous air, thickening of pylorus and duodenal bulb, thick-walled gallbladder, mesenteric inflammation in the u pper abdomen with free fluid. Repeat CT noted with improvement of emphysematous gastritis; EGD w stent placement 06/21/18; 04/06/19 status post gastrojejunostomy, resection of right ovarian mass and partial omentectomy at [facility] by . UGI noted with patent stent but cont inues to have intermittent vomiting. Nausea and vomiting intermittent. Patient agreeable for feeding tube. Dr. Calle to contact Dr. Suarez for possible GJtube as J-tube will not resolve vomiting, G-tube ideal for gastric content emptying and prevent further vomiting-GJ tube unable to be done by GI -Feeding tube placement today -npo for now -Per gi>antiemetics/motility agents -Supportive measures -Ambulate 2. 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 Previous history of perforated duodenal ulcer and obstruction favors site of primary tumor in the upper GI tract. -Per oncology> status post chemo cycle 1; subsequent chemo cycles per oncology -pending rocoí-cath placement 3. Anemia -Monitor 4. Constipation: Improved -Optimize bowel regimen as able 5. Nausea and vomiting: Improved -as above 6. Poor nutrition: Oral and TPN -As above 7. Lightheadedness and persistent tachycardia: Likely secondary to volume depletion/dehydration: improved -Cardiology consult and appreciated> per cards Thank you. Patient seen and examined in collaboration with Dr. Ag Calle. Subjective 24 Hr Interval Summary Hyponatremic. Tachycardia improved. n/v persistent. No fevers, chills, sob, congested cough, cp, palpitations, cross, dizziness, d/dysuria. Exam/Review of Systems Vital Signs Vitals Vital Signs Date Temp Pulse Resp B/P (MAP) Pulse Ox O2 O2 Flow FiO2 Time Delivery Rate 07/08/18 97.2 113 18 103/56 95 Room Air 08:17 (72) Intake and Output 07/07/18 07/07/18 07/08/18 1515:00 23:00 07:00 IntakeIntake Total 340 ml 1250 ml 1640 ml OutputOutput Total 950 ml 1100 ml 600 ml BalanceBalance -610 ml 150 ml 1040 ml Exam Free Text/Dictation Constitutional: alert, oriented, frail Psych: Normal mood Head: normocephalic, atraumatic Eyes: nl conjunctiva, EOMI, PERRL; No icteric ENMT: nl external ears & nose, nl lips & teeth, mucosa pink and moist Neck: supple, non-tender; No jvd Respiratory: normal air movement; No congested cough, No labored breathing, No wheezing Cardiovascular: Tachycardic No edema Gastrointestinal: soft, tender (minimal), minimally distended No rebound or guarding Musculoskeletal: nl extremities to inspection; No joint tenderness Extremities: normal pulses; No calf tenderness, No edema Neurological: nl mental status, nl speech, nl strength Skin: nl turgor; No rash or lesions, No diaphoresis Lymph: nl lymph nodes Results Result Diagram: 07/04/18 0507 07/08/18 0509 IVELISSE CEJA NP Jul 08, 2018 12:53
--- NOTE | 2018-07-08 13:29 | CONS ---
Assessment/Plan Assessment/Plan Hospital Course (Demo Recall) unfortunate 47 yo with metastatic gastric ca. admitted with N/V/abdo pain. s/p EGD and metal stent placed across the malignant stricture of the antrum of the stomach and also first part of the duodenum. #gastric ca -biopsy from EGD and reports from outside facilities are c/w gastric ca signet ring features. unclear why pt thought it was ovarian ca, have called Dr Mcdonald's office as well to update him -I discussed chemo with pt including schedule which is every 2 weeks as an outpt after cycle 1. side effects include but not limited to nausea, fatigue, myelosuppression, infection, neuropathy, cold sensitivity, mucositis, she verbalized understanding and consented to start -her 2 testing and PDL1 to be added to path to see if she is a candidate for herceptin along with FOLFOX -needs mediport prior to discharge, she has PICC now -CHEMO STARTED 06/29/18, has completed the 46 hr infusion, next tx due 07/13/18 -Dr Suarez also informed me she has motility issues due to tumor infiltration of stomach and stent will not allow her to eat. have communicated with Dr Calle if maybe a j tube can help. will reassess in a few days -G tube cannot be placed by GI, for surgical placement -once she has G tube can be discharged once stable and followed up as outpt to continue chemo Thank you Dr Lee and Dr Landeros for allowing us to participate in the care of this pleasant pt Consultation Date/Type/Reason Admit Date/Time Jun 10, 2018 at 18:42 Initial Consult Date 06/11/18 Requesting Provider: ELMER LEE MD Date/Time of Note DATE: 07/08/18 TIME: 13:27 24 HR Interval Summary Free Text/Dictation still with intermittement emesis Exam/Review of Systems Exam Vitals Vital Signs Date Temp Pulse Resp B/P (MAP) Pulse Ox O2 O2 Flow FiO2 Time Delivery Rate 07/08/18 97.2 113 18 103/56 95 Room Air 08:17 (72) Intake and Output 07/07/18 07/07/18 07/08/18 1414:59 22:59 06:59 IntakeIntake Total 340 ml 1250 ml 1640 ml OutputOutput Total 950 ml 1100 ml 600 ml BalanceBalance -610 ml 150 ml 1040 ml Results Result Diagram: 07/04/18 0507 07/08/18 0509 Results 24hrs Laboratory Tests Test 07/07/18 20:05 07/08/18 05:09 07/08/18 08:42 Bedside Glucose 152 161 Sodium Level 133 L Potassium Level 4.0 Chloride Level 104 Carbon Dioxide Level 16 L Anion Gap 13 Blood Urea Nitrogen 57 H Creatinine 0.65 Est Glomerular Filtrat Rate mL/min > 60 Glucose Level 161 Calcium Level 9.7 Phosphorus Level 3.4 Magnesium Level 2.1 Triglycerides Level 182 H Medications Medication Current Medications IV Flush (NS 3 ml) 3 ml PER PROTOCOL IV ; Start 06/10/18 at 18:00 Lorazepam (Ativan) 1 mg Q4H PRN IV anxiety Last administered on 06/12/18at 15:28; Admin Dose 1 MG; Start 06/11/18 at 21:30 IV Flush (NS 10 ml) 10 ml PRN PRN IV IV PROTOCOL; Start 06/16/18 at 17:00 Methylnaltrexone [place] (Relistor) 12 mg Q48H SC ; Start 06/17/18 at 08:30 Phenol (Chloraseptic Throat [place]) 2 spray Q2H PRN MT SORE THROAT Last administered on 06/17/18 21:23; Admin Dose 2 SPRAY; Start 06/17/18 at 11:30 Morphine Sulfate (morphine) 2 mg Q4H PRN IV SEVERE PAIN LEVEL 7-10 Last administered on 07/02/18 21:17; Admin Dose 2 MG; Start 06/21/18 at 21:00 Bisacodyl (Dulcolax Supp) 10 mg DAILY PRN [place] CONSTIPATION Last administered on 07/01/18 10:53; Admin Dose 10 MG; Start 06/25/18 at 12:00 Total Parenteral Nutrition 1,000 ml @ 60 mls/hr [id number] IV Last administered on 07/08/18 11:40; Admin Dose 60 MLS/HR; Start 06/26/18 at 20:00 Fat Emulsion Intravenous 250 ml @ 10.417 mls/ hr Q24H IV Last administered on 07/03/18 15:25; Admin Dose 10.417 MLS/HR; Start 06/27/18 at 16:00; Status Hold Diagnostic Test (Pha) (Accu-Chek) 1 ea Q12 XX Last administered on 07/08/18 08:45; Admin Dose 1 EA; Start 06/27/18 at 21:00 Diphenhydramine HCl (Benadryl) 25 mg Q6H PRN IV ALLERGIC REACTION; Start 06/29/18 at 11:00 Dexamethasone 20 mg/Dextrose 55 ml @ 252 mls/hr Q6H PRN IVPB ALLERGIC REACTION; Start 06/29/18 at 11:00 Prochlorperazine (Compazine Inj) 5 mg Q4H PRN IV NAUSEA AND/OR VOMITING Last administered on 07/08/18 07:21; Admin Dose 5 MG; Start 07/04/18 at 11:00 Ondansetron HCl 8 mg/Sodium Chloride 54 ml @ 216 mls/hr Q6H PRN IV NAUSEA AND/OR VOMITING Last administered on 07/05/18 23:18; Admin Dose 216 MLS/HR; Start 07/04/18 at 11:30 Famotidine (Pepcid Iv) 20 mg BID IV Last administered on 07/08/18 08:13; Admin Dose 20 MG; Start 07/05/18 at 11:00 Sodium Chloride 1,000 ml @ 50 mls/hr Q20H IV Last administered on 07/08/18 05:16; Admin Dose 50 MLS/HR; Start 07/07/18 at 11:00 Lactated Ringer's 1,000 ml @ 1,000 mls/hr Q1H ONCE IV Last administered on 07/08/18 12:34; Admin Dose 1,000 MLS/HR; Start 07/08/18 at 12:30; Stop 07/08/18 at 13:29 NICK VARELA Jul 08, 2018 13:28
[2018-07-08] MEDS ORDERED: MIDAZOLAM 1 MG/ML 2 ML INJ ONE (13:34)
[2018-07-08] MEDS ORDERED: SUCCINYLCHOLINE CHLORIDE 100 MG/5 ML SYG IV ONE (13:34)
[2018-07-08] MEDS ORDERED: ROCURONIUM 50 MG INJ ONE (13:34)
[2018-07-08] MEDS ORDERED: FENTAnyl 50 MCG/ML VIAL ONE ×3 (13:34→14:33)
[2018-07-08] MEDS ORDERED: ETOMIDATE 20 MG INJ ONE (13:34)
[2018-07-08] MEDS ORDERED: ROPIVACAINE 0.5 % 30 ML VIAL ONE (13:34)
[2018-07-08] MEDS ORDERED: LIDOCAINE 2% (SDV) 5 ML INJ ONE (13:34)
[2018-07-08] MEDS ORDERED: PHENYLephrine (100 MCG/ML) 5ML SYG ONE (14:04)
--- NOTE | 2018-07-08 14:15 | RADRPT ---
Vent Rate: 110 bpm RR Interval: 0 msec MN Interval: 124 msec QRS Duration: 84 msec QT Interval: 320 msec QTC Interval: 433 msec P-R-T [place]: 81 - 80 - 69 degrees Sinus tachycardia Moderate voltage criteria for LVH, may be normal variant Borderline ECG Electronically Signed By: Percy Torres
[2018-07-08] MEDS ORDERED: CEFAZOLIN 1 GM INJ ONE (14:16)
[2018-07-08] MEDS ORDERED: ONDANSETRON 4 MG INJ ONE (14:21)
[2018-07-08] MEDS ORDERED: FAMOTIDINE 20 MG INJ ONE (14:22)
[2018-07-08] MEDS ORDERED: METOCLOPRAMIDE 10 MG INJ ONE (14:22)
[2018-07-08] MEDS ORDERED: IOHEXOL 300MG/ML 30 ML BTL ONE (14:35)
[2018-07-08] MEDS ORDERED: DIATR MEGLU/DIATRIZOATE SODIUM 120 ML BTL ONE ×2 (14:46)
[2018-07-08] MEDS ORDERED: metroNIDAZOLE 500 MG/NS (PMX) 100 ML IVPB ONE (14:49)
[2018-07-08] MEDS ORDERED: DEXAMETHASONE 4 MG/ML 5 ML INJ ONE (14:54)
[2018-07-08] MEDS ORDERED: DEXTROSE 50% 50 ML SYRINGE ONE (15:14)
[2018-07-08] MEDS ORDERED: SUGAMMADEX SODIUM 200 MG/2 ML VIAL IV ONE (15:32)
[2018-07-08] MEDS ORDERED: ESMOLOL 10 ML ONE (15:36)
--- NOTE | 2018-07-08 15:45 | OPR ---
Date/Time of Note Date/Time of Note DATE: 07/08/18 TIME: 15:39 Operative Report Procedure Date: Jul 08, 2018 Preoperative Diagnosis Metastatic gastric cancer with carcinomatosis. Recent partial gastrectomy at outside hospital Nausea vomiting Recent stent placement by GI Postoperative Diagnosis Frozen abdomen (intestines plastered to abdominal wall and initial trocar directly entered into bowel. Contrast study did not identify leak and therefore feeding tube was placed at the site). Metastatic gastric cancer with carcinomatosis. Recent partial gastrectomy at outside hospital Nausea vomiting Recent stent placement by GI Operation/Procedure Performed 1. Laparoscopic feeding tube placement 2. Local anesthetic injection Surgeon Darvin Calle MD Rattan Worker Lorna Angel NP Anesthesia Type: general Anesthesiologist: HAJA CEJA DO Estimated Blood Loss: minimal Transfusion none Specimen None Grafts/Implants 16 [place] red Pichardo catheter Tubes/Drains As above Complications none Pt Condition Post Procedure: other (Fair) Disposition: PACU Indications Per notes and consults Patient in need of feeding tube per medical team however she is at high risk from a surgical standpoint. Risks include but are not limited to bleeding, infection, abscess, seroma, leak, damage to intestines or any intra-abdominal/intrapelvic structures, hernia formation, chronic pain, need for re-operations or further surgeries, MA, stroke, PE, DVT, pneumonia, organ failures, or even . Patient is advised that she may have significant adhesions and possible damage to bowel, leak, abscess, non healing, fistula, and . She completely understands and is adamant to proceed with surgery Procedure Description Patient is placed supine on the operating table. Both arms are tucked. All pressure points padded. After induction of anesthesia she was prepped and draped in sterile fashion and timeout is performed. She received preoperative antibiotics. Incision was made in the left upper quadrant at the site that there is possible open space on CT scan and using Optiview port and a 5 mm degree scope abdomen was attempted to be entered. I was proceeding very meticulously slowly and gently however immediately I noticed possible bowel, probably small bowel. At this point it seemed that I was intraluminal. I decided to place a guide wire through this and then a pre-fashioned 16 [place] red Pichardo catheter was placed over the wire into the bowel. Contrast study of this identified contrast within bowel without leak. Attempts were placed multiple times to discuss this with the radiologist however he is not available. Catheter was secured with 2-0 nylon, dressing is applied, and patient extubated to recovery room in fair condition. DARVIN CALLE MD Jul 08, 2018 15:45
--- NOTE | 2018-07-08 16:19 | PAC ---
Date/Time of Note Date/Time of Note DATE: 07/08/18 TIME: 16:17 Post-Anesthesia Notes Post-Anesthesia Note Last documented vital signs Vital Signs Date Temp Pulse Resp B/P (MAP) Pulse Ox O2 O2 Flow FiO2 Time Delivery Rate 07/08/18 98 113 18 105/65 95 Room Air 1540 Activity: WNL Respiratory function: WNL Cardiovascular function: WNL Mental status: Baseline Pain reasonably controlled: Yes Hydration appropriate: Yes Nausea/Vomiting absent: Yes HAJA CEJA DO Jul 08, 2018 16:19
[2018-07-08] MEDS: CEFAZOLIN 2 GM/50 ML (PMX) 50 ML IVPB SCH (16:58)
[2018-07-08] MEDS: metroNIDAZOLE 500 MG/NS (PMX) 100 ML IVPB SCH ×2 (17:33→22:06)
[2018-07-08] MEDS: morphine 2 MG INJ IV PRN (20:48)
[2018-07-09] VITALS (17 sets, daily range): BP systolic 80–116; BP diastolic 47–61; PULSE 94–180; RESP 18–20
[2018-07-09] MEDS: CEFAZOLIN 2 GM/50 ML (PMX) 50 ML IVPB SCH ×3 (00:19→15:14)
[2018-07-09] MEDS: morphine 2 MG INJ IV PRN ×5 (03:15→22:45)
[2018-07-09] MEDS: PROCHLORPERAZINE 10 MG INJ IV PRN ×2 (03:32→20:12)
[2018-07-09] MEDS: SOD CHLORIDE 0.9% 1,000 ML IV SCH ×2 (05:31→22:06)
[2018-07-09] MEDS: metroNIDAZOLE 500 MG/NS (PMX) 100 ML IVPB SCH ×2 (05:31→14:00)
[2018-07-09] MEDS: FAMOTIDINE 20 MG INJ IV SCH ×2 (07:47→20:13)
[2018-07-09] MEDS: METHYLNALTREXONE 12 MG/0.6 ML VIAL SC SCH (07:47)
[2018-07-09] MEDS: TPN 1,000 ML IV SCH (07:48)
--- NOTE | 2018-07-09 08:40 | PN ---
Date/Time of Note Date/Time of Note DATE: 07/09/18 TIME: 08:40 Assessment/Plan VTE Prophylaxis Risk score (from Nsg)>0 risk: 1 SCD applied (from Nsg): Yes Pharmacological prophylaxis: NA/contraindicated Pharm contraindication: surgical contra Lines/Catheters IV Catheter Type (from Nrsg): PICC Line Central line still needed: Yes Urinary Cath still in place: No Assessment/Plan Assessment/Plan 1. Partial obstructive gastric outlet - Surgery on board and appreciate recommendations. J tube placed 07/08 without any complications. - s/p placement of stent by GI. Repeat SBFT shows patency of stent - CT scan showing gastric thickening and emphysematous gastritis concerning for cancer vs necrosis with likely Gastric outlet obstruction, ovarian mass, possible abscess, etc. 2. 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 Completed first round of chemotherapy and will need to follow up as outpatient for further treatment - once N/V resolved, will order portacath placement - Patient's prior oncologist is Dr Mae at [facility]. but she wishes to follow up with Dr. Vick now. 3. JAMAL - resolved - nephrology consultation appreciated 4. PUD - GI on board and appreciate recommendations - Pepcid BID 5. Constipation - bowel regimen as tolerated 6. Disposition - If N/V remains stable, will order portacath placement - will start tube feeding when okay per Surgery Result Diagram: 07/09/18 0530 Results 24hrs Laboratory Tests Test 07/08/18 08:42 07/08/18 20:18 07/09/18 05:30 07/09/18 07:50 Bedside Glucose 161 187 161 Sodium Level 135 Potassium Level 3.5 Chloride Level 107 Carbon Dioxide Level 17 L Anion Gap 11 Blood Urea Nitrogen 42 #H Creatinine 0.66 Est Glomerular Filtrat > 60 Rate mL/min Glucose Level 141 Calcium Level 8.9 Phosphorus Level 2.7 Magnesium Level 1.6 L Prealbumin 27.9 Subjective 24 Hr Interval Summary Free Text/Dictation Patient with persistent tachycardia and SVT on monitor. Requesting to be transf erred back to 4W but discussed HR needs to improve. Had vomiting this am but secondary to Morphine. Exam/Review of Systems Exam Vitals Vital Signs Date Temp Pulse Resp B/P (MAP) Pulse Ox O2 O2 Flow FiO2 Time Delivery Rate 07/09/18 98.4 119 20 107/54 98 Room Air 07:50 (71) 07/08/18 8.0 15:40 Intake and Output 07/08/18 07/08/18 07/09/18 1515:00 23:00 07:00 IntakeIntake Total 810 ml 1000 ml 150 ml OutputOutput Total 50 ml 850 ml BalanceBalance 810 ml 950 ml -700 ml Exam General: Patient is laying in bed and answers questions appropriately. bitemporal wasting appreciated Neck: Supple, nontender, midline Respiratory: Clear to auscultation bilaterally. no wheezing Cardiovascular: regular rate and rhythm, no obvious murmurs Gastrointestinal: soft non-tender to palpation, bowel sounds heard. Jtube in place, dressing CDI, dark green fluid in drain appreciated Neurological: Moves all extremities spontaneously Skin: No new skin lesions Results Results 24hrs Laboratory Tests Test 07/08/18 08:42 07/08/18 20:18 07/09/18 05:30 07/09/18 07:50 Bedside Glucose 161 187 161 Sodium Level 135 Potassium Level 3.5 Chloride Level 107 Carbon Dioxide Level 17 L Anion Gap 11 Blood Urea Nitrogen 42 #H Creatinine 0.66 Est Glomerular Filtrat > 60 Rate mL/min Glucose Level 141 Calcium Level 8.9 Phosphorus Level 2.7 Magnesium Level 1.6 L Prealbumin 27.9 Medications Medication Current Medications IV Flush (NS 3 ml) 3 ml PER PROTOCOL IV ; Start 06/10/18 at 18:00 Lorazepam (Ativan) 1 mg Q4H PRN IV anxiety Last administered on 06/12/18at 15:28; Admin Dose 1 MG; Start 06/11/18 at 21:30 IV Flush (NS 10 ml) 10 ml PRN PRN IV IV PROTOCOL; Start 06/16/18 at 17:00 Methylnaltrexone [place] (Relistor) 12 mg Q48H SC ; Start 06/17/18 at 08:30 Phenol (Chloraseptic Throat [place]) 2 spray Q2H PRN MT SORE THROAT Last administered on 06/17/18at 21:23; Admin Dose 2 SPRAY; Start 06/17/18 at 11:30 Morphine Sulfate (morphine) 2 mg Q4H PRN IV SEVERE PAIN LEVEL 7-10 Last administered on 07/09/18at 07:48; Admin Dose 2 MG; Start 06/21/18 at 21:00 Bisacodyl (Dulcolax Supp) 10 mg DAILY PRN [place] CONSTIPATION Last administered on 07/01/18 10:53; Admin Dose 10 MG; Start 06/25/18 at 12:00 Total Parenteral Nutrition 1,000 ml @ 60 mls/hr [id number] IV Last administered on 07/09/18 07:48; Admin Dose 60 MLS/HR; Start 06/26/18 at 20:00 Diagnostic Test (Pha) (Accu-Chek) 1 ea Q12 XX Last administered on 07/08/18 20:55; Admin Dose 1 EA; Start 06/27/18 at 21:00 Diphenhydramine HCl (Benadryl) 25 mg Q6H PRN IV ALLERGIC REACTION; Start 06/29/18 at 11:00 Dexamethasone 20 mg/Dextrose 55 ml @ 252 mls/hr Q6H PRN IVPB ALLERGIC REACTION; Start 06/29/18 at 11:00 Prochlorperazine (Compazine Inj) 5 mg Q4H PRN IV NAUSEA AND/OR VOMITING Last administered on 07/09/18 03:32; Admin Dose 5 MG; Start 07/04/18 at 11:00 Ondansetron HCl 8 mg/Sodium Chloride 54 ml @ 216 mls/hr Q6H PRN IV NAUSEA AND/OR VOMITING Last administered on 07/05/18 23:18; Admin Dose 216 MLS/HR; Start 07/04/18 at 11:30 Famotidine (Pepcid Iv) 20 mg BID IV Last administered on 07/09/18 07:47; Admin Dose 20 MG; Start 07/05/18 at 11:00 Sodium Chloride 1,000 ml @ 50 mls/hr Q20H IV Last administered on 07/09/18 05:31; Admin Dose 50 MLS/HR; Start 07/07/18 at 11:00 Metronidazole 100 ml @ 100 mls/hr Q8 IVPB Last administered on 07/09/18 05:31; Admin Dose 100 MLS/HR; Start 07/08/18 at 16:00; Stop 07/09/18 at 15:59 Cefazolin Sodium/ Dextrose 50 ml @ 100 mls/hr Q8 IVPB Last administered on 07/09/18 07:48; Admin Dose 100 MLS/HR; Start 07/08/18 at 16:00; Stop 07/09/18 at 15:59 Magnesium Sulfate 50 ml @ 25 mls/hr ONCE ONCE IVPB ; Start 07/09/18 at 09:00; Stop 07/09/18 at 10:59; Status TOBI NAVARRO MD Jul 09, 2018 08:40
[2018-07-09] MEDS: ACCU-CHEK XX SCH ×2 (08:47→20:18)
[2018-07-09] MEDS ORDERED: MAGNESIUM SULFATE 2 GM/50 ML 50 ML IVPB ONE ×2 (09:00→15:00)
--- NOTE | 2018-07-09 10:55 | PN ---
DATE: 07/09/2018 SUBJECTIVE: The patient is noted to be tachycardic was transferred to telemetry, placed on IV fluids . No other events noted. OBJECTIVE: VITAL SIGNS: Blood pressure is 107/54, pulse 119, respirations 20, temperature 98.4. HEENT: Head is normocephalic. NECK: Supple. HEART: Regular rate. LUNGS: Show diminished breath sounds at the base. ABDOMEN: Soft, nontender to palpation. No rebound or guarding. EXTREMITIES: Negative for clubbing, cyanosis, no edema. DERMATOLOGIC: No rashes. MUSCULOSKELETAL: No joint effusion. NEUROLOGIC: No change in exam. MEDICATIONS: Reviewed. LABORATORY DATA: Shows white count 5.2, hemoglobin 10.2, platelet count is 215, sodium 135, potassiu m 3.5, BUN 14, creatinine 0.66, magnesium is 1.6. ASSESSMENT AND PLAN: 1. Acute hyponatremia, etiology secondary to volume depletion. The patient's sodium levels have imp roved with IV fluids. 2. Nonoliguric acute kidney injury etiology is secondary to hemodynamics. Renal function is improve d. Continue to monitor. 3. Azotemia. Etiology multifactorial secondary to hypercatabolic state in conjunction with TPN. Co ntinue to monitor. 4. Anemia. Monitor hemoglobin and hematocrit levels. 5. 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 6. Nausea, vomiting. Continue antiemetics. 7. Gastric outlet obstruction. The patient is status post placement of a feeding tube per surgery. 8. Tachycardia. Continue to monitor on telemetry. Continue IV hydration. 9. Metastatic gastric carcinoma. The patient completed a course of chemotherapy. Continue to monit or. 10. Nutrition. The patient is on TPN. Dictated By: BRAYDEN RED DO NR/NTS Conf#: [id number] DID#: [id number] CC: TOBI THOMAS MD;*End*
[2018-07-09] MEDS: POTASSIUM CHLORIDE 100 ML IVPB SCH ×2 (15:15→17:09)
--- NOTE | 2018-07-09 23:29 | PN ---
Date/Time of Note Date/Time of Note DATE: 07/09/18 TIME: 23:29 Assessment/Plan Lines/Catheters IV Catheter Type (from Nrs): PICC Line Ramsey in Place (from Nrs): No Assessment/Plan Chief Complaint/Hosp Course 1. CT with emphysematous gastritis, portal venous air, thickening of pylorus and duodenal bulb, thick-walled gallbladder, mesenteric inflammation in the u pper abdomen with free fluid. Repeat CT noted with improvement of emphysematous gastritis; EGD w stent placement 06/21/18; 04/06/19 status post gastrojejunostomy, resection of right ovarian mass and partial omentectomy at [facility] by . UGI noted with patent stent but cont inues to have intermittent vomiting. s/p Lap feeding tube, however frozen abdomen and intestines plastered to abdominal wall and initial trocar directly entered into bowel. Contrast study did not identify leak and therefore feeding tube was placed at the site. Patient with persistent tachycardia and now hypotension. -npo -stat labs/xrays/ekg -fluids -medical optimization 2. 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 Previous history of perforated duodenal ulcer and obstruction favors site of primary tumor in the upper GI tract. -Per oncology> status post chemo cycle 1; subsequent chemo cycles per oncology 3. Anemia -Monitor 4. Constipation: Improved -Optimize bowel regimen as able 5. Nausea and vomiting: Improved -as above 6. Poor nutrition: TPN -As above 7. Lightheadedness and persistent tachycardia: Likely secondary to volume depletion/dehydration +/- surgical -fluids -medical optimization -stat labs/ekg/xrays Thank you Subjective 24 Hr Interval Summary s/p Lap feeding tube 07/09/18, however frozen abdomen and intestines plastered to abdominal wall and initial trocar directly entered into bowel. Contrast study did not identify leak and therefore feeding tube was placed at the site. Tachycardia worse. Hypotension tonight. No calls all day or night. No current n/v. No flatus/bm after surgery. No fevers, chills, sob, congested cough, cp, palpitations, cross, dizziness, diarrhea, dysuria. Exam/Review of Systems Vital Signs Vitals Vital Signs Date Temp Pulse Resp B/P (MAP) Pulse Ox O2 O2 Flow FiO2 Time Delivery Rate 07/10/18 138 97/50 (66) 00:05 07/09/18 97.3 20 97 23:23 07/09/18 Room Air 15:37 07/08/18 8.0 15:40 Exam Free Text/Dictation Constitutional: alert, oriented, frail Psych: Normal mood Head: normocephalic, atraumatic Eyes: nl conjunctiva, EOMI, PERRL; No icteric ENMT: nl external ears & nose, nl lips & teeth, mucosa pink and moist Neck: supple, non-tender; No jvd Respiratory: normal air movement; No congested cough, No labored breathing, No wheezing Cardiovascular: Tachycardic No edema Gastrointestinal: soft, tender, feeding tube, rigid since prior to surgery, minimally distended. Musculoskeletal: nl extremities to inspection; No joint tenderness Extremities: normal pulses; No calf tenderness, No edema Neurological: nl mental status, nl speech, nl strength Skin: nl turgor; No rash or lesions, No diaphoresis Lymph: nl lymph nodes Results Result Diagram: 07/09/18 0530 DARVIN BOURNE MD Jul 09, 2018 23:29
[2018-07-09] MEDS ORDERED: SOD CHLORIDE 0.9% 1,000 ML IV ONE (23:30)
[2018-07-10] VITALS (79 sets, daily range): BP systolic 59–149; BP diastolic 18–87; PULSE 116–171; RESP 15–35
[2018-07-10] MEDS: SOD CHLORIDE 0.9% 1,000 ML IV SCH (00:39)
[2018-07-10] MEDS: TPN 1,000 ML IV SCH ×3 (00:40→22:13)
--- NOTE | 2018-07-10 01:01 | PN ---
Date/Time of Note Date/Time of Note DATE: 07/10/18 TIME: 00:57 Assessment/Plan Lines/Catheters IV Catheter Type (from Nrs): PICC Line Ramsey in Place (from Nrs): No Assessment/Plan Chief Complaint/Hosp Course 1. CT with emphysematous gastritis, portal venous air, thickening of pylorus and duodenal bulb, thick-walled gallbladder, mesenteric inflammation in the upper abdomen with free fluid. Repeat CT noted with improvement of emphysematous gastritis; EGD w stent placement 06/21/18; 04/06/19 status post gastrojejunostomy, resection of right ovarian mass and partial omentectomy at [facility] by . UGI noted with patent stent but con tinues to have intermittent vomiting. s/p Lap feeding tube, however frozen abdomen and intestines plastered to abdominal wall and initial trocar directly entered into bowel. Contrast study did not identify leak and therefore feeding tube was placed at the site. Patient with persistent tachycardia and now hypotension. -npo -stat labs/xrays/ekg pending > ? CT -fluids/supportive -medical optimization 2. 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 Previous history of perforated duodenal ulcer and obstruction favors site of primary tumor in the upper GI tract. -Per oncology> status post chemo cycle 1; subsequent chemo cycles per oncology 3. Anemia -Monitor 4. Constipation: Improved -Optimize bowel regimen as able 5. Nausea and vomiting: Improved -as above 6. Poor nutrition: TPN -As above 7. Lightheadedness and persistent tachycardia: Likely secondary to volume depletion/dehydration +/- surgical -fluids -medical optimization -stat labs/ekg/xrays in process Thank you Subjective 24 Hr Interval Summary s/p Lap feeding tube 07/09/18, however frozen abdomen and intestines plastered to abdominal wall and initial trocar directly entered into bowel. Contrast study did not identify leak and therefore feeding tube was placed at the site. Tachycardia & hypotension. s/p fluid bolus. No current n/v. No flatus/bm after surgery thus far. No fevers, chills, sob, congested cough, cp, palpitations, cross, dizziness, diarrhea, dysuria. Stat w/u in process. Exam/Review of Systems Vital Signs Vitals Vital Signs Date Temp Pulse Resp B/P (MAP) Pulse Ox O2 O2 Flow FiO2 Time Delivery Rate 07/10/18 138 97/50 (66) 00:05 07/09/18 97.3 20 97 23:23 07/09/18 Room Air 15:37 07/08/18 8.0 15:40 Exam Free Text/Dictation Constitutional: alert, oriented, frail Psych: Normal mood Head: normocephalic, atraumatic Eyes: nl conjunctiva, EOMI, PERRL; No icteric ENMT: nl external ears & nose, nl lips & teeth, mucosa pink and moist Neck: supple, non-tender; No jvd Respiratory: normal air movement; No congested cough, No labored breathing, No wheezing Cardiovascular: Tachycardic No edema Gastrointestinal: soft, tender, feeding tube, rigid since prior to surgery, minimally distended. Musculoskeletal: nl extremities to inspection; No joint tenderness Extremities: normal pulses; No calf tenderness, No edema Neurological: nl mental status, nl speech, nl strength Skin: nl turgor; No rash or lesions, No diaphoresis Lymph: nl lymph nodes Results Result Diagram: 07/09/18 0530 DARVIN BOURNE MD Jul 10, 2018 01:01
[2018-07-10] MEDS ORDERED: IOHEXOL 300MG/ML 150 ML BTL ONE (01:41)
[2018-07-10] MEDS ORDERED: SOD CHLORIDE 0.9% 100 ML ONE (01:41)
[2018-07-10] MEDS: PROCHLORPERAZINE 10 MG INJ IV PRN ×3 (03:27→11:57)
[2018-07-10] MEDS ORDERED: VANCOMYCIN IV PER PHARMACY XX SCH (04:00)
[2018-07-10] MEDS ORDERED: VANCOMYCIN 1 GM 250 ML IVPB ONE (04:00)
[2018-07-10] MEDS ORDERED: NORepinephrine 8MG/250 ML (PMX 250 ML IV SCH ×3 (04:45→19:00)
[2018-07-10] MEDS ORDERED: PHENYLephrine 20MG IN 250 ML 250 ML ONE (05:05)
[2018-07-10] MEDS: metroNIDAZOLE 500 MG/NS (PMX) 100 ML IVPB SCH ×3 (05:27→22:04)
[2018-07-10] MEDS: PIPER-TAZO 3.375 GM IV (PMX) 100 ML IVPB SCH ×2 (05:27→11:42)
[2018-07-10] MEDS ORDERED: PHENYLephrine 20MG IN 250 ML 250 ML IV SCH (05:30)
[2018-07-10] MEDS ORDERED: ACETAMINOPHEN 1000MG/100ML IV 100 ML IVPB ONE (05:30)
[2018-07-10] MEDS: PHENYLephrine 20MG IN 250 ML 250 ML IV SCH ×2 (05:38→06:58)
[2018-07-10] MEDS ORDERED: METOPROLOL 5 MG INJ IV ONE (06:00)
[2018-07-10] MEDS ORDERED: POTASSIUM PHOSPHATE 30 MEQ in SOD CHLORIDE 0.9% 250 ML IVPB ONE (06:00)
[2018-07-10] MEDS ORDERED: NA BICARBONATE 8.4% 50 ML SYG ONE (07:00)
[2018-07-10] MEDS ORDERED: ROCURONIUM 50 MG INJ ONE (07:00)
[2018-07-10] MEDS: LACTATED RINGER'S 1,000 ML IV SCH ×4 (07:19→21:29)
[2018-07-10] MEDS: morphine 2 MG INJ IV PRN ×3 (07:35→17:11)
--- NOTE | 2018-07-10 08:51 | PN ---
Date/Time of Note Date/Time of Note DATE: 07/10/18 TIME: 08:51 Assessment/Plan VTE Prophylaxis Risk score (from Ns)>0 risk: 6 SCD applied (from Ns): Yes Pharmacological prophylaxis: NA/contraindicated Pharm contraindication: surgical contra Lines/Catheters IV Catheter Type (from Nrsg): PICC Line Central line still needed: Yes Urinary Cath still in place: No Assessment/Plan Assessment/Plan 1. Septic shock secondary to intraabdominal source - patient on pressor support with goal MAP >65 - CT scan results noted with J tube leak. Gen surgery took patient to OR with findings of abscess formation and necrotic tissue secondary to bile leakage into abdominal cavity - Continue IV antibiotics and pressor support as needed 2. Acute hypoxic respiratory failure - On mechanical ventilation following OR - Pulmonology consultation placed for vent management 3. Partial obstructive gastric outlet - Surgery on board and appreciate recommendations. J tube placed 07/08 - s/p placement of stent by GI. Repeat SBFT shows patency of stent 4. 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 Completed first round of chemotherapy and will need to follow up as outpatient for further treatment - perma cath placement when stable - Patient's prior oncologist is Dr Mae at [facility]. but she wishes to follow up with Dr. Vick now. 5. JAMAL - trending up in setting of septic shock - will continue on IVF - nephrology consultation appreciated 6. PUD - GI on board and appreciate recommendations - Pepcid BID 7. Constipation - bowel regimen as tolerated 8. Disposition - Remains intubated in ICU and will continue weaning pressor support as tolerated - Continue all care. Plans for portacath placement when stable Result Diagram: 07/10/18 0744 07/10/18 0744 Results 24hrs Laboratory Tests Test 07/09/18 20:18 07/10/18 00:59 07/10/18 01:00 07/10/18 01:01 Bedside Glucose 160 White Blood Count 0.4 #L Red Blood Count 2.71 #L Hemoglobin 7.5 #L Hematocrit 22.2 #L Mean Corpuscular 81.9 L Volume Mean Corpuscular 27.7 L Hemoglobin Mean Corpuscular 33.8 Hemoglobin Concent Red Cell 15.9 H Distribution Width Platelet Count 148 # Mean Platelet Volume 10.1 Immature 2.800 H Granulocytes % Neutrophils % Segmented 17 L Neutrophils % (Manual) Band Neutrophils % 12 H (Manual) Lymphocytes % Lymphocytes % 58 H (Manual) Monocytes % Monocytes % (Manual) 2 Eosinophils % Basophils % Metamyelocytes % 3 H (manual) Blast Cells % 8.0 H (Manual) Nucleated Red Blood 6 H Cells % Immature 0.010 Granulocytes # Neutrophils # Neutrophils # 0.1 L (Manual) Band Neutrophils # 0.0 Lymphocytes (Manual) 0.2 L Lymphocytes # Monocytes # Monocytes # (Manual) 0.0 L Eosinophils # Basophils # Metamyelocytes # 0.0 Nucleated Red Blood Cells # Platelet Estimate NORMAL Giant Platelets 13 H Polychromasia 3+ Anisocytosis 1+ Microcytosis 1+ Sodium Level 138 Potassium Level 4.0 Chloride Level 114 H Carbon Dioxide Level 15 L Anion Gap 9 Blood Urea Nitrogen 41 H Creatinine 0.74 Est Glomerular > 60 Filtrat Rate mL/min Glucose Level 156 Lactic Acid Level 3.0 *H Calcium Level 7.9 L Total Bilirubin 0.2 Direct Bilirubin 0.00 Indirect Bilirubin 0.2 Aspartate Amino 10 L Transf (AST/SGOT) Alanine 24 Aminotransferase (AL T/SGPT) Alkaline Phosphatase 106 Total Protein 5.1 L Albumin 2.3 L Globulin 2.80 Albumin/Globulin 0.82 Ratio Troponin I 0.027 Test 07/10/18 04:29 07/10/18 05:01 07/10/18 07:44 Sodium Level 137 138 Potassium Level 3.7 3.3 L Chloride Level 111 H 113 H Carbon Dioxide Level 15 L 12 L Anion Gap 11 13 Blood Urea Nitrogen 43 H 45 H Creatinine 0.99 1.14 H Glucose Level 128 153 Calcium Level 8.1 L 8.3 L Phosphorus Level 0.6 #L Magnesium Level 2.9 #H Albumin 2.3 L 2.1 L White Blood Count 0.3 #L 0.3 L Red Blood Count 2.68 L 2.30 L Hemoglobin 7.4 L 6.4 *L Hematocrit 21.9 L 19.6 L Mean Corpuscular 81.7 L 85.2 Volume Mean Corpuscular 27.6 L 27.8 L Hemoglobin Mean Corpuscular 33.8 32.7 Hemoglobin Concent Red Cell 15.9 H 16.3 H Distribution Width Platelet Count 133 L 198 # Mean Platelet Volume 9.3 10.3 Immature 0.000 L 0.000 L Granulocytes % Neutrophils % Lymphocytes % Monocytes % Eosinophils % Basophils % Nucleated Red Blood 16.0 H Cells % Immature 0.000 0.000 Granulocytes # Neutrophils # Lymphocytes # Monocytes # Eosinophils # Basophils # Nucleated Red Blood Cells # Est Glomerular 51 L Filtrat Rate mL/min Lactic Acid Level 5.8 *H Total Bilirubin 0.2 Direct Bilirubin 0.00 Indirect Bilirubin 0.2 Aspartate Amino 11 L Transf (AST/SGOT) Alanine 19 Aminotransferase (AL T/SGPT) Alkaline Phosphatase 88 Total Protein 4.8 L Globulin 2.70 Albumin/Globulin 0.77 Ratio Subjective 24 Hr Interval Summary Free Text/Dictation Patient was transferred to ICU this am due to hypotension and tachycardia. She was started on pressor support. Plans to take to OR per surgery since CT abd resulted with leak around Jtube site. Exam/Review of Systems Exam Vitals Vital Signs Date Temp Pulse Resp B/P (MAP) Pulse Ox O2 O2 Flow FiO2 Time Delivery Rate 07/10/18 98.0 07:35 07/10/18 120 23 06:45 07/10/18 77/34 (48) 06:00 07/10/18 100 04:48 07/09/18 Room Air 15:37 07/08/18 8.0 15:40 Intake and Output 07/09/18 07/09/18 07/10/18 1515:00 23:00 07:00 IntakeIntake Total 2000 ml BalanceBalance 2000 ml Exam General: Patient is laying in bed and answers questions appropriately. bitemporal wasting appreciated Neck: Supple, nontender, midline Respiratory: Clear to auscultation bilaterally. no wheezing Cardiovascular: regular rate and rhythm, no obvious murmurs Gastrointestinal: soft non-tender to palpation, bowel sounds heard. Jtube in place Neurological: Moves all extremities spontaneously Skin: No new skin lesions Results Results 24hrs Laboratory Tests Test 07/09/18 20:18 07/10/18 00:59 07/10/18 01:00 07/10/18 01:01 Bedside Glucose 160 White Blood Count 0.4 #L Red Blood Count 2.71 #L Hemoglobin 7.5 #L Hematocrit 22.2 #L Mean Corpuscular 81.9 L Volume Mean Corpuscular 27.7 L Hemoglobin Mean Corpuscular 33.8 Hemoglobin Concent Red Cell 15.9 H Distribution Width Platelet Count 148 # Mean Platelet Volume 10.1 Immature 2.800 H Granulocytes % Neutrophils % Segmented 17 L Neutrophils % (Manual) Band Neutrophils % 12 H (Manual) Lymphocytes % Lymphocytes % 58 H (Manual) Monocytes % Monocytes % (Manual) 2 Eosinophils % Basophils % Metamyelocytes % 3 H (manual) Blast Cells % 8.0 H (Manual) Nucleated Red Blood 6 H Cells % Immature 0.010 Granulocytes # Neutrophils # Neutrophils # 0.1 L (Manual) Band Neutrophils # 0.0 Lymphocytes (Manual) 0.2 L Lymphocytes # Monocytes # Monocytes # (Manual) 0.0 L Eosinophils # Basophils # Metamyelocytes # 0.0 Nucleated Red Blood Cells # Platelet Estimate NORMAL Giant Platelets 13 H Polychromasia 3+ Anisocytosis 1+ Microcytosis 1+ Sodium Level 138 Potassium Level 4.0 Chloride Level 114 H Carbon Dioxide Level 15 L Anion Gap 9 Blood Urea Nitrogen 41 H Creatinine 0.74 Est Glomerular > 60 Filtrat Rate mL/min Glucose Level 156 Lactic Acid Level 3.0 *H Calcium Level 7.9 L Total Bilirubin 0.2 Direct Bilirubin 0.00 Indirect Bilirubin 0.2 Aspartate Amino 10 L Transf (AST/SGOT) Alanine 24 Aminotransferase (AL T/SGPT) Alkaline Phosphatase 106 Total Protein 5.1 L Albumin 2.3 L Globulin 2.80 Albumin/Globulin 0.82 Ratio Troponin I 0.027 Test 07/10/18 04:29 07/10/18 05:01 07/10/18 07:44 Sodium Level 137 138 Potassium Level 3.7 3.3 L Chloride Level 111 H 113 H Carbon Dioxide Level 15 L 12 L Anion Gap 11 13 Blood Urea Nitrogen 43 H 45 H Creatinine 0.99 1.14 H Glucose Level 128 153 Calcium Level 8.1 L 8.3 L Phosphorus Level 0.6 #L Magnesium Level 2.9 #H Albumin 2.3 L 2.1 L White Blood Count 0.3 #L 0.3 L Red Blood Count 2.68 L 2.30 L Hemoglobin 7.4 L 6.4 *L Hematocrit 21.9 L 19.6 L Mean Corpuscular 81.7 L 85.2 Volume Mean Corpuscular 27.6 L 27.8 L Hemoglobin Mean Corpuscular 33.8 32.7 Hemoglobin Concent Red Cell 15.9 H 16.3 H Distribution Width Platelet Count 133 L 198 # Mean Platelet Volume 9.3 10.3 Immature 0.000 L 0.000 L Granulocytes % Neutrophils % Lymphocytes % Monocytes % Eosinophils % Basophils % Nucleated Red Blood 16.0 H Cells % Immature 0.000 0.000 Granulocytes # Neutrophils # Lymphocytes # Monocytes # Eosinophils # Basophils # Nucleated Red Blood Cells # Est Glomerular 51 L Filtrat Rate mL/min Lactic Acid Level 5.8 *H Total Bilirubin 0.2 Direct Bilirubin 0.00 Indirect Bilirubin 0.2 Aspartate Amino 11 L Transf (AST/SGOT) Alanine 19 Aminotransferase (AL T/SGPT) Alkaline Phosphatase 88 Total Protein 4.8 L Globulin 2.70 Albumin/Globulin 0.77 Ratio Medications Medication Current Medications IV Flush (NS 3 ml) 3 ml PER PROTOCOL IV ; Start 06/10/18 at 18:00 Lorazepam (Ativan) 1 mg Q4H PRN IV anxiety Last administered on 06/12/18at 15:28; Admin Dose 1 MG; Start 06/11/18 at 21:30 IV Flush (NS 10 ml) 10 ml PRN PRN IV IV PROTOCOL; Start 06/16/18 at 17:00 Methylnaltrexone [place] (Relistor) 12 mg Q48H SC ; Start 06/17/18 at 08:30 Phenol (Chloraseptic Throat [place]) 2 spray Q2H PRN MT SORE THROAT Last administered on 06/17/18 21:23; Admin Dose 2 SPRAY; Start 06/17/18 at 11:30 Morphine Sulfate (morphine) 2 mg Q4H PRN IV SEVERE PAIN LEVEL 7-10 Last administered on 07/10/18 07:35; Admin Dose 2 MG; Start 06/21/18 at 21:00 Bisacodyl (Dulcolax Supp) 10 mg DAILY PRN [place] CONSTIPATION Last administered on 07/01/18 10:53; Admin Dose 10 MG; Start 06/25/18 at 12:00 Total Parenteral Nutrition 1,000 ml @ 60 mls/hr [id number] IV Last administered on 07/10/18 00:40; Admin Dose 60 MLS/HR; Start 06/26/18 at 20:00 Diagnostic Test (Pha) (Accu-Chek) 1 ea Q12 XX Last administered on 07/09/18 20:18; Admin Dose 1 EA; Start 06/27/18 at 21:00 Diphenhydramine HCl (Benadryl) 25 mg Q6H PRN IV ALLERGIC REACTION; Start 06/29/18 at 11:00 Dexamethasone 20 mg/Dextrose 55 ml @ 252 mls/hr Q6H PRN IVPB ALLERGIC REACTION; Start 06/29/18 at 11:00 Prochlorperazine (Compazine Inj) 5 mg Q4H PRN IV NAUSEA AND/OR VOMITING Last administered on 07/10/18at 07:38; Admin Dose 5 MG; Start 07/04/18 at 11:00 Ondansetron HCl 8 mg/Sodium Chloride 54 ml @ 216 mls/hr Q6H PRN IV NAUSEA AND/OR VOMITING Last administered on 07/05/18at 23:18; Admin Dose 216 MLS/HR; Start 07/04/18 at 11:30 Famotidine (Pepcid Iv) 20 mg BID IV Last administered on 07/09/18at 20:13; Admin Dose 20 MG; Start 07/05/18 at 11:00 Piperacillin Sod/ Tazobactam Sod 100 ml @ 200 mls/hr Q6 IVPB Last administered on 07/10/18at 05:27; Admin Dose 200 MLS/HR; Start 07/10/18 at 06:00 Vancomycin HCl (Vanco Iv Per Pharmacy) VANCOMYCIN PER PHARMACY PER PROTOCOL XX ; Start 07/10/18 at 04:00 Metronidazole 100 ml @ 100 mls/hr Q8 IVPB Last administered on 07/10/18at 05:27; Admin Dose 100 MLS/HR; Start 07/10/18 at 06:00 Vancomycin/Sodium Chloride 250 ml @ 125 mls/hr Q12H IVPB ; Start 07/10/18 at 16:00 Norepinephrine 250 ml @ 1.875 mls/ hr TITRATE IV ; Start 07/10/18 at 05:00 Phenylephrine HCl 250 ml @ 75 mls/hr TITRATE IV Last administered on 07/10/18at 06:58; Admin Dose 187.5 MLS/HR; Start 07/10/18 at 05:30 Potassium Phosphate 30 meq/ Sodium Chloride 256.8182 ml @ 64.205 m... ONCE ONCE IVPB Last administered on 07/10/18at 07:19; Admin Dose 64.205 MLS/HR; Start 07/10/18 at 06:00; Stop 07/10/18 at 09:59 Lactated Ringer's 1,000 ml @ 150 mls/hr Q6H40M IV Last administered on 07/10/18at 07:19; Admin Dose 150 MLS/HR; Start 07/10/18 at 07:00 Vasopressin 60 unit/Dextrose 60 ml @ 1.2 mls/hr Q12H IV ; Start 07/10/18 at 09:30 Potassium Chloride 100 ml @ 50 mls/hr Q2H IVPB ; Start 07/10/18 at 09:00; Stop 07/10/18 at 12:59; Status UNTOBI GUPTA MD Jul 10, 2018 08:51
[2018-07-10] MEDS ORDERED: POTASSIUM CHLORIDE 100 ML IVPB SCH ×2 (09:00→10:00)
[2018-07-10] MEDS: ACCU-CHEK XX SCH ×2 (09:00→21:35)
--- NOTE | 2018-07-10 09:10 | PN ---
DATE: 07/10/2018 SUBJECTIVE: The patient was transferred from telemetry to the intensive care unit due to hypertensio n, tachyarrhythmia. Patient overnight had no episodes of hemoptysis, hematemesis, hematochezia. OBJECTIVE: VITAL SIGNS: Blood pressure is 77/34, pulse 120, temperature 98.0. I's and O's reviewed. HEENT: Head is normocephalic. NECK: Supple. HEART: Regular rate. LUNGS: Show diminished breath sounds at the base. ABDOMEN: Soft, nontender to palpation without rebound or guarding. EXTREMITIES: Negative for clubbing, cyanosis, no edema. DERMATOLOGIC: No rashes. MUSCULOSKELETAL: No joint effusion. NEUROLOGIC: No change in exam. MEDICATIONS: Reviewed. LABORATORY DATA: Show sodium 137, potassium 2.7, BUN 43, creatinine 0.99, calcium 8.1, phosphorus 0. 6, magnesium 2.9. White count 0.3, hemoglobin 6.4, platelet count is 198. IMAGING STUDIES: CT scan of abdomen and pelvis was reviewed, showed a J-tube with an intraperitoneal leak, noted thickening of gastric antrum and proximal duodenum. ASSESSMENT AND PLAN: 1. Acute hyponatremia, etiology secondary to volume depletion, resolved. Continue to monitor. 2. Acidosis. Etiology may be compensatory. Will continue to monitor. Consider checking an ABG. 3. Nonoliguric acute kidney injury, etiology secondary to hemodynamics. Renal function is improved. Continue to monitor. The patient does have an underlying azotemia that is multifactorial secondary to hypercatabolic state. 4. Mineral bone disorder. The patient is hypophosphatemic, hypocalcemic. Continue to replete with potassium phosphate, monitor closely. 5. Shock, presumed septic, possible hemodynamic. Continue aggressive IV hydration. Continue antibi otic therapy, continue pressor support. We will follow up cultures. Continue to trend lactic acid l evel. 6. Neutropenia, anemia, etiology may be secondary to recent chemotherapy. Continue to monitor. Fol low up with hematology/oncology. 7. Nausea, vomiting. Continue antiemetics. 8. Gastric outlet obstruction. The patient is status post stent placement. 9. Tachyarrhythmia. Etiology may be due to sepsis, SIRS or volume depletion. Continue to monitor. Continue IV hydration. Continue current management. 10. Metastatic gastric carcinoma. The patient has completed a course of chemotherapy. Continue to monitor. 11. Nutrition. The patient remains on TPN. Dictated By: BRAYDEN RED DO NR/NTS Conf#: [id number] DID#: [id number] CC: DARVIN BOURNE MD; TOBI THOMAS MD; ELMER CAVAZOS MD;*EndCC*
[2018-07-10] MEDS ORDERED: PIPER-TAZO 3.375 GM IV (PMX) 100 ML IVPB SCH (10:00)
[2018-07-10] MEDS: FAMOTIDINE 20 MG INJ IV SCH ×2 (10:07→21:31)
[2018-07-10] MEDS ORDERED: LIDOCAINE 1%/EPI 30 ML INJ INJ STA (10:16)
[2018-07-10] MEDS ORDERED: LIDOCAINE 1% (MDV) 20 ML INJ ONE (10:19)
[2018-07-10] MEDS ORDERED: LIDOCAINE 1%/EPI (1:100,000) (MDV) 20 ML INJ SCH (11:00)
[2018-07-10] MEDS: VASOPRESSIN 60 UNIT in DEXTROSE 5% 57 ML IV SCH ×2 (11:17→21:30)
[2018-07-10] MEDS: PHENYLephrine 80 MG in DEXTROSE 5% 242 ML IV SCH ×2 (11:17→20:33)
[2018-07-10] MEDS ORDERED: LACTATED RINGER'S 1,000 ML IV ONE (12:00)
--- NOTE | 2018-07-10 12:47 | RADRPT ---
Vent Rate: 164 bpm RR Interval: 0 msec SD Interval: 124 msec QRS Duration: 76 msec QT Interval: 300 msec QTC Interval: 495 msec P-R-T [place]: 71 - 84 - 51 degrees Sinus tachycardia Nonspecific T wave abnormality Abnormal ECG Electronically Signed By: Percy Torres
--- NOTE | 2018-07-10 12:59 | QN ---
Documentation Comment Patient with worsening sepsis since early this morning. Labs noted. CT scan noted. Have been trying to aggressively resuscitate her. I have had long discussions with patient her /boyfriend (Gamaliel) and 1 of the daughters. Based on the findings she has air and fluid in the abdominal wall. She has a very small area of contrast within the abdomen that was identified by radiologist. This was confirmed by the radiologist solution coordinator. On-call radiol ogist does not find significant intra-abdominal leak however very tiny spot. I explained to them that she is very sick and septic at this time. They are adding a third pressor to keep her pressure up despite fluids. Lactic acid is worsening. Plan is to proceed with incision and drainage of abdominal wall possible exploration of the abdomen at the site of the feeding tube, para costal incision. However after discussion with family we will proceed with abdominal wall drainage and decide if further exploration is needed based on the read from the radiologist. They all understand that this is very high risk. Her risk of heart attack, stroke, bleeding, or are high (amongst other usual and customary risks). It is likely that she may not make it through the surgery or soon after surgery. They want everything done. DARVIN BOURNE MD Jul 10, 2018 12:59
[2018-07-10] MEDS ORDERED: PHENYLephrine (100 MCG/ML) 5ML SYG ONE (13:04)
[2018-07-10] MEDS ORDERED: KETAMINE (50 MG/ML) 10 ML VIAL ONE (13:05)
[2018-07-10] MEDS ORDERED: MIDAZOLAM 1 MG/ML 2 ML INJ ONE (13:05)
--- NOTE | 2018-07-10 13:11 | PREAC ---
Date/Time of Note Date/Time of Note DATE: 07/10/18 TIME: 13:09 Anesthesia Eval and Record Evaluation Time Pre-Procedure Interview DATE: 07/10/18 TIME: 13:09 Age 47 Sex female NPO: 8 hrs Preoperative diagnosis bowel leak Planned procedure exploratory laparotomy Past Medical History Past Medical History: Includes Cardio: Other (septic shock) Renal: JAMAL GI: GERD Heme: Anemia Surgery & Anesthesia Issues Aspiration risk Meds Anticoagulation: No Beta Hayde within 24 hr: No Reason Beta Hayde not given: Pt. not on B-Hayde No Active Prescriptions or Reported Meds Current Medications IV Flush (NS 3 ml) 3 ml PER PROTOCOL IV ; Start 06/10/18 at 18:00 Lorazepam (Ativan) 1 mg Q4H PRN IV anxiety Last administered on 06/12/18at 15:28; Admin Dose 1 MG; Start 06/11/18 at 21:30 IV Flush (NS 10 ml) 10 ml PRN PRN IV IV PROTOCOL; Start 06/16/18 at 17:00 Methylnaltrexone [place] (Relistor) 12 mg Q48H SC ; Start 06/17/18 at 08:30 Phenol (Chloraseptic Throat [place]) 2 spray Q2H PRN MT SORE THROAT Last administered on 06/17/18at 21:23; Admin Dose 2 SPRAY; Start 06/17/18 at 11:30 Morphine Sulfate (morphine) 2 mg Q4H PRN IV SEVERE PAIN LEVEL 7-10 Last administered on 07/10/18at 11:57; Admin Dose 2 MG; Start 06/21/18 at 21:00 Bisacodyl (Dulcolax Supp) 10 mg DAILY PRN [place] CONSTIPATION Last administered on 07/01/18at 10:53; Admin Dose 10 MG; Start 06/25/18 at 12:00 Total Parenteral Nutrition 1,000 ml @ 60 mls/hr [id number] IV Last administered on 07/10/18 00:40; Admin Dose 60 MLS/HR; Start 06/26/18 at 20:00 Diagnostic Test (Pha) (Accu-Chek) 1 ea Q12 XX Last administered on 07/10/18 09:00; Admin Dose 1 EA; Start 06/27/18 at 21:00 Diphenhydramine HCl (Benadryl) 25 mg Q6H PRN IV ALLERGIC REACTION; Start 06/29/18 at 11:00 Dexamethasone 20 mg/Dextrose 55 ml @ 252 mls/hr Q6H PRN IVPB ALLERGIC REACTION; Start 06/29/18 at 11:00 Prochlorperazine (Compazine Inj) 5 mg Q4H PRN IV NAUSEA AND/OR VOMITING Last administered on 07/10/18 11:57; Admin Dose 5 MG; Start 07/04/18 at 11:00 Ondansetron HCl 8 mg/Sodium Chloride 54 ml @ 216 mls/hr Q6H PRN IV NAUSEA AND/OR VOMITING Last administered on 07/05/18 23:18; Admin Dose 216 MLS/HR; Start 07/04/18 at 11:30 Famotidine (Pepcid Iv) 20 mg BID IV Last administered on 07/10/18 10:07; Admin Dose 20 MG; Start 07/05/18 at 11:00 Piperacillin Sod/ Tazobactam Sod 100 ml @ 200 mls/hr Q6 IVPB Last administered on 07/10/18 11:42; Admin Dose 200 MLS/HR; Start 07/10/18 at 06:00 Vancomycin HCl (Vanco Iv Per Pharmacy) VANCOMYCIN PER PHARMACY PER PROTOCOL XX ; Start 07/10/18 at 04:00 Metronidazole 100 ml @ 100 mls/hr Q8 IVPB Last administered on 07/10/18 05:27; Admin Dose 100 MLS/HR; Start 07/10/18 at 06:00 Vancomycin/Sodium Chloride 250 ml @ 125 mls/hr Q12H IVPB ; Start 07/10/18 at 16:00 Norepinephrine 250 ml @ 1.875 mls/ hr TITRATE IV Last administered on 07/10/18at 13:00; Admin Dose 1.875 MLS/HR; Start 07/10/18 at 05:00 Lactated Ringer's 1,000 ml @ 150 mls/hr Q6H40M IV Last administered on 07/10/18 07:19; Admin Dose 150 MLS/HR; Start 07/10/18 at 07:00 Vasopressin 60 unit/Dextrose 60 ml @ 1.2 mls/hr Q12H IV Last administered on 07/10/18 11:17; Admin Dose 1.2 MLS/HR; Start 07/10/18 at 09:30 Phenylephrine HCl 80 mg/Dextrose 250 ml @ 18.75 mls/ hr TITRATE IV Last administered on 07/10/18at 11:17; Admin Dose 56.25 MLS/HR; Start 07/10/18 at 10:30 Miscellaneous Information (*Rx Drug Level Order Reminder*) VANCO TROUGH @ 1,500 ONCE ONCE XX ; Start 07/11/18 at 15:00; Stop 07/11/18 at 15:01 Lidocaine/ Epinephrine (Xylocaine 1%/ Epi (Mdv) 20 ml) 20 ml ONCE INJ ; Start 07/10/18 at 11:00; Stop 07/10/18 at 15:00 Meds reviewed: Yes Allergies Coded Allergies: No Known Allergy (Unverified , 06/10/18) Allergies Reviewed: Yes Labs/Studies Labs Reviewed: Reviewed by anesthesiologist Result Diagram: 07/10/18 1019 07/10/18 1019 Laboratory Tests 07/10/18 10:19 Blood Bank Test 07/10/18 04:29 Antibody Screen NEGATIVE Blood Product Summary Counts Blood Type AB POSITIVE test: Negative Studies: ECG, CXR Pre-procedure Exam Last vitals Vital Signs Date Temp Pulse Resp B/P (MAP) Pulse Ox O2 O2 Flow FiO2 Time Delivery Rate 07/10/18 120 08:00 07/10/18 98.0 07:35 07/10/18 23 06:45 07/10/18 77/34 (48) 06:00 07/10/18 100 04:48 07/09/18 Room Air 15:37 07/08/18 8.0 15:40 Airway: Adequate mouth opening, Adequate thyromental dist Mallampati: Mallampati II Teeth: Normal Lung: Normal Heart: Normal ASA Physical Status ASA physical status: 5 Emergency: E Planned Anesthetic General/MAC: ETT, A Line, CVP Planned Pain Management Local by surgeon Pre-operative Attestations Prior to commencing anesthesia and surgery, the patient was re-evaluated, there was verification of: *The patient's identity *The results of appropriate recent lab work and preoperative vital signs *The above evaluation not changing prior to induction *Anesthetic plan, risk benefits, alternative and complications discussed with patient/family; questions answered; patient/family understands, accepts and wishes to proceed. ISAURA RAMOS Jul 10, 2018 13:11
[2018-07-10] MEDS ORDERED: metroNIDAZOLE 500 MG/NS (PMX) 100 ML IVPB ONE (15:10)
--- NOTE | 2018-07-10 15:18 | PREAC ---
Date/Time of Note Date/Time of Note DATE: 07/10/18 TIME: 15:14 Anesthesia Eval and Record Evaluation Time Pre-Procedure Interview DATE: 07/10/18 TIME: 14:30 Age 47 Sex female NPO: 8 hrs Preoperative diagnosis Metastatic Gastric Cancer, end stage, acute abdomen, sepsis Planned procedure Exploratory laparotomy, possible bowel resection Past Medical History Past Medical History: Includes Cardio: Other (on multiple pressors, unstable, hypotensive) Heme: Anemia, Coagulation disorder Surgery & Anesthesia Issues No known issue Meds Anticoagulation: No Beta Hayde within 24 hr: No Reason Beta Hayde not given: Pt. not on B-Hayde No Active Prescriptions or Reported Meds Current Medications IV Flush (NS 3 ml) 3 ml PER PROTOCOL IV ; Start 06/10/18 at 18:00 Lorazepam (Ativan) 1 mg Q4H PRN IV anxiety Last administered on 06/12/18at 15:28; Admin Dose 1 MG; Start 06/11/18 at 21:30 IV Flush (NS 10 ml) 10 ml PRN PRN IV IV PROTOCOL; Start 06/16/18 at 17:00 Methylnaltrexone [place] (Relistor) 12 mg Q48H SC ; Start 06/17/18 at 08:30 Phenol (Chloraseptic Throat [place]) 2 spray Q2H PRN MT SORE THROAT Last adm inistered on 06/17/18at 21:23; Admin Dose 2 SPRAY; Start 06/17/18 at 11:30 Morphine Sulfate (morphine) 2 mg Q4H PRN IV SEVERE PAIN LEVEL 7-10 Last administered on 07/10/18 11:57; Admin Dose 2 MG; Start 06/21/18 at 21:00 Bisacodyl (Dulcolax Supp) [address] CONSTIPATION Last administered on 07/01/18 10:53; Admin Dose 10 MG; Start 06/25/18 at 12:00 Total Parenteral Nutrition 1,000 ml @ 60 mls/hr [id number] IV Last administered on 07/10/18 00:40; Admin Dose 60 MLS/HR; Start 06/26/18 at 20:00 Diagnostic Test (Pha) (Accu-Chek) 1 ea Q12 XX Last administered on 07/10/18 09:00; Admin Dose 1 EA; Start 06/27/18 at 21:00 Diphenhydramine HCl (Benadryl) 25 mg Q6H PRN IV ALLERGIC REACTION; Start 06/29/18 at 11:00 Dexamethasone 20 mg/Dextrose 55 ml @ 252 mls/hr Q6H PRN IVPB ALLERGIC REACTI ON; Start 06/29/18 at 11:00 Prochlorperazine (Compazine Inj) 5 mg Q4H PRN IV NAUSEA AND/OR VOMITING Last administered on 07/10/18at 11:57; Admin Dose 5 MG; Start 07/04/18 at 11:00 Ondansetron HCl 8 mg/Sodium Chloride 54 ml @ 216 mls/hr Q6H PRN IV NAUSEA AND/OR VOMITING Last administered on 07/05/18at 23:18; Admin Dose 216 MLS/HR; Start 07/04/18 at 11:30 Famotidine (Pepcid Iv) 20 mg BID IV Last administered on 07/10/18at 10:07; Admin Dose 20 MG; Start 07/05/18 at 11:00 Piperacillin Sod/ Tazobactam Sod 100 ml @ 200 mls/hr Q6 IVPB Last administered on 07/10/18at 11:42; Admin Dose 200 MLS/HR; Start 07/10/18 at 06:00 Vancomycin HCl (Vanco Iv Per Pharmacy) VANCOMYCIN PER PHARMACY PER PROTOCOL XX ; Start 07/10/18 at 04:00 Metronidazole 100 ml @ 100 mls/hr Q8 IVPB Last administered on 07/10/18 05 :27; Admin Dose 100 MLS/HR; Start 07/10/18 at 06:00 Vancomycin/Sodium Chloride 250 ml @ 125 mls/hr Q12H IVPB ; Start 07/10/18 at 16:00 Norepinephrine 250 ml @ 1.875 mls/ hr TITRATE IV Last administered on 07/10/18at 13:00; Admin Dose 1.875 MLS/HR; Start 07/10/18 at 05:00 Lactated Ringer's 1,000 ml @ 150 mls/hr Q6H40M IV Last administered on 07/10/18at 07:19; Admin Dose 150 MLS/HR; Start 07/10/18 at 07:00 Vasopressin 60 unit/Dextrose 60 ml @ 1.2 mls/hr Q12H IV Last administered on 3/10/19at 11:17; Admin Dose 1.2 MLS/HR; Start 07/10/18 at 09:30 Phenylephrine HCl 80 mg/Dextrose 250 ml @ 18.75 mls/ hr TITRATE IV Last administered on 07/10/18at 11:17; Admin Dose 56.25 MLS/HR; Start 07/10/18 at 10:30 Miscellaneous Information (*Rx Drug Level Order Reminder*) VANCO TROUGH @ 1,500 ONCE ONCE XX ; Start 07/11/18 at 15:00; Stop 07/11/18 at 15:01 Meds reviewed: Yes Allergies Coded Allergies: No Known Allergy (Unverified , 06/10/18) Allergies Reviewed: Yes Labs/Studies Labs Reviewed: Reviewed by anesthesiologist Result Diagram: 07/10/18 1019 07/10/18 1019 Laboratory Tests 07/10/18 10:19 Blood Bank Test 07/10/18 04:29 Antibody Screen NEGATIVE Blood Product Summary Counts Blood Type AB POSITIVE Crossmatch Red Blood Cells test: N/A Studies: ECG (ST), CXR (no acute changes) Pre-procedure Exam Last vitals Vital Signs Date Temp Pulse Resp B/P (MAP) Pulse Ox O2 O2 Flow FiO2 Time Delivery Rate 07/10/18 119 12:00 07/10/18 98.0 07:35 07/10/18 23 06:45 07/10/18 77/34 (48) 06:00 07/10/18 100 04:48 07/09/18 Room Air 15:37 07/08/18 8.0 15:40 Airway: Adequate mouth opening, Adequate thyromental dist Mallampati: Mallampati II Teeth: Abnormal (chippped tooth, no loose teeth, ) Lung: Normal Heart: Abnormal (ST hypotensive septic patient) Anticipated Difficutly with IV: Anticipate Difficult IV Access ASA Physical Status ASA physical status: 5 Emergency: E Planned Anesthetic General/MAC: ETT, A Line, CVP Planned Pain Management Parenteral pain med Pre-operative Attestations Prior to commencing anesthesia and surgery, the patient was re-evaluated, there was verification of: *The patient's identity *The results of appropriate recent lab work and preoperative vital signs *The above evaluation not changing prior to induction *Anesthetic plan, risk benefits, alternative and complications discussed with patient/family; questions answered; patient/family understands, accepts and w ishes to proceed. GABI FERNANDES MD Jul 10, 2018 15:18
--- NOTE | 2018-07-10 15:58 | OPR ---
Date/Time of Note Date/Time of Note DATE: 07/10/18 TIME: 15:47 Operative Report Procedure Date: Jul 10, 2018 Preoperative Diagnosis 1. Sepsis with shock 2. Possible abdominal wall abscess, questionable intra-abdominal leak Postoperative Diagnosis 1. Sepsis with shock 2. Abdominal wall abscess and necrosis Operation/Procedure Performed 1. Incision and drainage of abdominal wall abscess (20 x 15 cm) 2. Excisional debridement of abdominal wall subcutaneous and fascia necrotic tissue (20 x 15 cm) 3. Abdominal exploration left upper quadrant with lysis of adhesions 4. Reposition and re-securing of small bowel feeding tube Surgeon Darvin Bourne MD [employer] None Anesthesia Type: general Anesthesiologist: GABI FERNANDES MD Estimated Blood Loss: 10 - 50 ml's Transfusion 2 units FFP 2 units packed red blood cells 2 L crystalloid Specimen Abdominal wall culture Grafts/Implants Kerlix with Betadine Tubes/Drains 16 Samoan red Pichardo catheter as feeding to Complications none Pt Condition Post Procedure: critical Disposition: other (ICU) Indications Patient has history of gastric CA stage IV with carcinomatosis and recent surgery with frozen abdomen. She is postop day 1-1/2 after her laparoscopic feeding tube which was very difficult. During the surgery the initial port went straight into the small bowel and it was used for the feeding tube insertion site. However last night patient became more septic and imaging identified abdominal wall infection possible intra-abdominal leak. I had a long discussion with patient, , 1 of the daughters in terms of significant risks involved with high risk of heart attack stroke bleeding of further bowel injury leak fistula abscesses and other customary in usual possible complications. They all understand the high risks involved and want to proceed with surgery. Procedure Description Patient was brought and placed upon the operating table. A line and central line were placed by anesthesia. Then she was intubated and prepped and draped in sterile fashion and timeout was performed. Left subcostal incision was made into the subcutaneous tissue and necrotic subcutaneous and fascia were identified before an extensive area of the left abdomen. The necrotic tissue was were debrided to healthier tissue. Abscess was drained. Culture was sent. Area was irrigated with pulse lavage. Feeding tube was identified and gentle dissection of the abdominal wall fascia and muscle allowed me gaining access into the left upper quadrant in the abdomen. The bowel was plastered to the abdominal wall. I was very meticulous and careful not to injure any more bowel. There was no room for leak and there was no findings of abscess around this area. Decision was made not to proceed deeper. The enterotomy for the feeding tube was somewhat wide and a very gentle 2-0 Vicryl pursestring suture was placed around it to secure it further to the tube to decrease leakage. To be able to identify further leak and collected in 19 Samoan Jluis was placed through the left lateral abdomen underneath the muscle layers above the peritoneum at this site and secured with 2-0 nylon. The red Pichardo catheter or the president was brought out through a different stab incision and kept in place. This was also secured with 2-0 nylon. Once again the wound was irrigated thoroughly with Betadine and saline. Fascial layers were closed with interrupted [id number] #1 Vicryl sutures however the skin and subcutaneous tissue were left open and the wound was packed with Betadine soaked Kerlix x2 that were tied to each other. Patient was kept intubated transferred to ICU and guarded condition. DARVIN BOURNE MD Jul 10, 2018 15:57
[2018-07-10] MEDS ORDERED: ONDANSETRON 4 MG INJ IV PRN (16:00)
[2018-07-10] MEDS ORDERED: FENTAnyl 50 MCG/ML VIAL IV PRN ×2 (16:00)
[2018-07-10] MEDS ORDERED: HYDROmorphONE 0.5 MG/0.5 ML SYG IV PRN ×2 (16:00)
--- NOTE | 2018-07-10 16:03 | PAC ---
Date/Time of Note Date/Time of Note DATE: 07/10/18 TIME: 16:02 Post-Anesthesia Notes Post-Anesthesia Note Last documented vital signs Vital Signs Date Temp Pulse Resp B/P (MAP) Pulse Ox O2 O2 Flow FiO2 Time Delivery Rate 07/10/18 99.7 133 15 143/72 99 Mechanical 15:45 (95) Ventilator 07/08/18 8.0 15:40 Activity: Other (bedrest intubated) Respiratory function: Other (on vent intubated) Cardiovascular function: Other (ST on pressor, phenylephrine was tappered off intra op, Vasopressor and Levophed also tappered down.) Mental status: Other (sedated intubated) Pain reasonably controlled: Yes Hydration appropriate: Yes Nausea/Vomiting absent: Yes GABI FERNANDES MD Jul 10, 2018 16:03
[2018-07-10] MEDS ORDERED: CASPOFUNGIN 70 MG in SOD CHLORIDE 0.9% 250 ML IVPB ONE (16:30)
[2018-07-10] MEDS ORDERED: NA BICARBONATE 8.4% 50 ML SYG IV ONE ×2 (16:30→18:00)
[2018-07-10] MEDS ORDERED: FENTAnyl (DRIP) 1000 mcg/100mL 100 ML IV SCH (17:00)
[2018-07-10] MEDS: VANCOMYCIN 750 MG (PMX) 250 ML IVPB SCH (17:36)
[2018-07-10] MEDS: MIDAZOLAM (DRIP) 50 mg/50 mL 50 ML IV SCH (17:59)
[2018-07-10] MEDS: MEROPENEM 500MG/50 ML (PMX) 50 ML IVPB SCH (18:29)
[2018-07-10] MEDS ORDERED: NA BICARBONATE 8.4% 50 ML SYG IV STA (19:53)
[2018-07-10] MEDS ORDERED: SOD CHLORIDE 0.9% 1,000 ML IV ONE (20:00)
[2018-07-10] MEDS: NORepinephrine 32 MG in SOD CHLORIDE 0.9% 218 ML IV SCH (21:59)
[2018-07-11] VITALS (104 sets, daily range): BP systolic 68–148; BP diastolic 20–91; PULSE 96–143; RESP 16–32
[2018-07-11] MEDS: PHENYLephrine 80 MG in DEXTROSE 5% 242 ML IV SCH ×5 (00:56→18:42)
[2018-07-11] MEDS: SODIUM BICARBONATE (IV ADD) 150 MEQ in DEXTROSE 5% 1,000 ML IV SCH ×2 (00:57→12:16)
--- NOTE | 2018-07-11 01:45 | CONS ---
DATE OF ADMISSION: 06/10/2018 DATE OF CONSULTATION: ADMITTING PHYSICIAN: Sridhar Lee MD. HISTORY OF PRESENT ILLNESS: The patient is a 47-year-old female who was admitted on with the chief complaint of nausea, vomiting and abdominal pain. The patient presented with a me tastatic gastric signet ring carcinoma status post 1 course of chemotherapy. 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 The patient had a perforated duodenal ulcer and gastric outlet obstruction. The patient had a gastrojejunostomy and was stabilized and discharged to her home and to her present illness. Upon arrival, the patient was found to have a feeding tube that was plastered to the abdominal wall which was entered when the laparoscopic feeding tube was introduced. She had an abdominal wall abscess whi ch was drained recently and, today, she had a blood pressure of 77/34, pulse 120. No temperatures cross ve been recorded in the EMR. The patient's white count was 300, hemoglobin 6.4 grams, platelets 198. Sodium 137, potassium 2.7, BUN 43, creatinine 0.91, phosphorus 0.9, magnesium 2.9. The patient dev eloped respiratory difficulty and required intubation and placed on a respirator. She was begun disha tment with Zosyn, Flagyl and, eventually, these were changed to vancomycin, caspofungin, meropenem an d Flagyl. She currently is on 3 pressors including Levophed, phenylephrine and vasopressin. She is sedated under propofol. The patient has no culture results except for 50,000 to 60,000 colonies per mL of Gardnerella vaginalis with a mixed rachel. PHYSICAL EXAMINATION: GENERAL: Reveals a well-developed, female lying in bed supine with endotracheal tube, Ramsey catheter and intravenous lines in place, and she does not does not respond to stimuli because of pro pofol anesthesia. HEENT: Her pupils are constricted but not pinned. NECK: Supple. There is no jugular venous distention. CHEST: Clear bilaterally. ABDOMEN: Firm especially in the left upper quadrant, right upper quadrant and right lower quadrant. There is a J-tube exiting the left upper quadrant. There are no bowel sounds heard. EXTREMITIES: The patient has no acrocyanosis. She was not observed to move any of her arms or legs and there was no peripheral edema. GENITOURINARY: She is passing a small amount of dark goyo urine. INITIAL IMPRESSION: 1. Septic shock with a carbon dioxide content of 8. 2. Lactic acidosis with a lactic acid level of 6.2. 3. Leukopenia due to chemotherapy. 4. Abscess from perforated gastrojejunostomy. 5. 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 RECOMMENDATIONS: I would continue the present supportive measures and continue the present antibioti c regimen including steroids. I have seen this patient for Dr. Jim Vu. Dictated By: Jenn MONTGOMERY MD for JIM VU MD EC/NTS Conf#: [id number] DID#: [id number] CC: SRIDHAR LEE MD;*EndCC*
[2018-07-11] MEDS ORDERED: SOD CHLORIDE 0.9% 1,000 ML IV ONE ×4 (02:00→09:30)
[2018-07-11] MEDS: MIDAZOLAM (DRIP) 50 mg/50 mL 50 ML IV SCH ×4 (03:16→20:07)
[2018-07-11] MEDS: VANCOMYCIN 750 MG (PMX) 250 ML IVPB SCH ×2 (03:58→16:07)
[2018-07-11] MEDS: metroNIDAZOLE 500 MG/NS (PMX) 100 ML IVPB SCH ×2 (05:57→13:51)
--- NOTE | 2018-07-11 07:50 | CONS ---
Assessment/Plan Assessment/Plan Assessment/Plan (Daily) I spoke to family members this morning patient's boyfriend and sister. There is another sister they are the decision makers since I have been involved with her care and are aware of her underlying serious medical illness. The chance of recovering from this catastrophic change in her condition or low. Patient is a full code I will do a full palliative care consultation today family members on the way to the hospital at this time it is now over [id number]. Consultation Date/Type/Reason Admit Date/Time Jun 10, 2018 at 18:42 Initial Consult Date 06/11/18 Requesting Provider: ELMER CAVAZOS MD Date/Time of Note DATE: 07/11/18 TIME: 07:47 24 HR Interval Summary Free Text/Dictation Since last time seen patient patient she has been taken to surgery for intra-abdominal sepsis that was done 07/10/2018 she is now in the intensive care unit in septic shock CT scan shows a J-tube in place neurosurgery took the operating room finding an abscess necrotic tissue secondary to bile leak in the abdominal cavity this information from her medical records she has acute hypoxic respiratory failure. Patient completed her first round of chemotherapy during his hospitalization. She has worsening acute kidney injury. She is on 3 pressors at this time intubated 30% FiO2 sedated on multiple different broad- spectrum IV antibiotic coverage she was transferred to the eye to see you secondary to sepsis with hypotension and tachycardia. Exam/Review of Systems Exam Vitals Vital Signs Date Temp Pulse Resp B/P (MAP) Pulse Ox O2 O2 Flow FiO2 Time Delivery Rate 07/11/18 139 27 88/58 (68) 100 06:15 07/11/18 Mechanical 06:00 Ventilator 07/11/18 30 05:10 07/11/18 98.7 04:00 07/08/18 8.0 15:40 Intake and Output 07/10/18 07/10/18 07/11/18 1515:00 23:00 07:00 IntakeIntake Total 4077.365 ml 5410.115 ml 4222.89 ml OutputOutput Total 180 ml 270 ml 75 ml BalanceBalance 3897.365 ml 5140.115 ml 4147.89 ml Constitutional: non-verbal Eyes: nl conjunctiva, EOMI, nl lids, nl sclera, PERRL Respiratory: congested cough, crackles/rales, diminished breath sounds, intercostal retraction, labored breathing Cardiovascular: regular rate and rhythm, nl pulses Gastrointestinal: other (Cannot assess patient is heavily bandaged) Results Result Diagram: 07/11/185 07/11/18 0425 Results 24hrs Laboratory Tests Test 07/10/18 10:11 07/10/18 10:19 07/10/18 15:00 07/10/18 16:32 Bedside Glucose 170 White Blood 0.3 L 0.4 #L 0.4 L Count Red Blood Count 2.98 #L 3.56 L 3.85 L Hemoglobin 8.4 #L 10.2 #L 11.2 L Hematocrit 25.6 #L 30.7 L 32.4 L Mean 85.9 86.2 84.2 Corpuscular Volume Mean 28.2 L 28.7 L 29.1 Corpuscular Hemoglobin Mean 32.8 33.2 34.6 Corpuscular Hemoglobin Conc ent Red Cell 16.1 H 14.7 H 14.6 H Distribution Width Platelet Count 153 # 115 #L 100 L Mean Platelet 9.8 9.8 10.0 Volume Immature 15.400 H 0.000 L 0.000 L Granulocytes % Neutrophils % Lymphocytes % Monocytes % Eosinophils % Basophils % Nucleated Red 100 H 92 H Blood Cells % Immature 0.040 H 0.000 0.000 Granulocytes # Neutrophils # Lymphocytes # Monocytes # Eosinophils # Basophils # Nucleated Red Blood Cells # Prothrombin 23.4 #H 21.3 H Time Prothrombin 1.8 1.7 Time Ratio INR 2.07 1.84 International Normalized Rati o Sodium Level 139 138 140 Potassium Level 3.8 4.9 4.1 Chloride Level 114 H 112 H 113 H Carbon Dioxide 11 L 8 *L 12 L Level Anion Gap 14 H 18 H 15 H Blood Urea 46 H 42 H 44 H Nitrogen Creatinine 1.22 H 1.52 H 1.30 H Est Glomerular 47 L 36 L 44 L Filtrat Rate mL/min Glucose Level 156 168 156 Lactic Acid 6.2 *H 6.6 *H Level Calcium Level 7.6 L 7.2 L 7.4 L Total Bilirubin 0.3 0.2 0.4 Direct 0.00 0.00 0.00 Bilirubin Indirect 0.3 0.2 0.4 Bilirubin Aspartate Amino 12 L 22 29 Transf (AST/SGO T) Alanine 19 21 22 Aminotransferas e (ALT/SGPT) Alkaline 76 77 72 Phosphatase Total Protein 4.1 L 5.2 #L 5.2 L Albumin 1.8 L 2.3 L 2.4 L Globulin 2.30 2.90 2.80 Albumin/Globuli 0.78 0.79 0.85 n Ratio Segmented 2 L 16 L Neutrophils % (Manual) Band 14 H 4 Neutrophils % (Manual) Lymphocytes % 75 H 61 H (Manual) Reactive 2 H 3 H Lymphocytes % (Manual) Eosinophils % 4 7 (Manual) Plasma Cells % 4 (manual) Neutrophils # 0.0 L 0.1 L (Manual) Band 0.0 0.0 Neutrophils # Lymphocytes 0.3 L 0.2 L (Manual) Reactive 0.0 0.0 Lymphocytes # Plasma Cells # 0.0 (manual) Pathologist YES Review (Hematol ogy) Platelet DECREASED DECREASED Estimate Giant Platelets 20 H 11 H Polychromasia 2+ 3+ Poikilocytosis 2+ 2+ Anisocytosis 1+ 2+ Microcytosis 1+ 2+ Activated 35.7 H Partial Thrombo plast Time Blood Gas Blood Specimen arterial Source Arterial Blood 07/10/2018 3:08 Date Drawn :55 PM Arterial Blood 7.056 *L pH (Temp corrected ) Arterial Blood 30.3 L pCO2 (Temp correct) Arterial Blood 506.5 H pO2 (Temp corrected ) Arterial Blood 8.3 *L HCO3 Arterial Blood -20.8 L Base Excess Arterial Blood 99.2 H Oxygen Saturati on Dionte Test N/A Arterial Blood A-Line Gas Puncture Site Arterial 0.3 Blood Carboxyhe moglobin Arterial Blood 0 Methemoglobin Blood Gas A-a 176.2 H O2 Differential Oxyhemoglobin 98.9 Percent Blood Gas 37.0 Temperature Blood Gas VENT - AC Modality FiO2 100.[address] FERNANDES Critical Value Read Back Blood Gas M.Nnamdi Notified Whom Blood Gas 07/10/2018 3:19 Notified Time :17 PM Monocytes % 2 (Manual) Basophils % 3 H (Manual) Myelocytes % 2 H (Manual) Promyelocytes % 1 H (Manual) Monocytes # 0.0 L (Manual) Basophils # 0.0 (Manual) Myelocytes # 0.0 Promyelocytes # 0.0 Test 07/10/18 18:25 07/10/18 19:31 07/10/18 21:35 07/10/18 22:49 Lactic Acid 9.8 *H Level Blood Gas Blood arterial Specimen Source Arterial Blood 07/10/2018 7:30: Date Drawn 51 PM Arterial Blood 7.256 *L pH (Temp corrected ) Arterial Blood 20.7 L pCO2 (Temp correct) Arterial Blood 175.3 H pO2 (Temp corrected ) Arterial Blood 9.0 *L HCO3 Arterial Blood -16.2 L Base Excess Arterial Blood 98.4 H Oxygen Saturati on Dionte Test N/A Arterial Blood A-Line Gas Puncture Site Arterial 0.2 Blood Carboxyhe moglobin Arterial Blood 0.1 Methemoglobin Blood Gas A-a 86.1 H O2 Differential Oxyhemoglobin 98.1 Percent Blood Gas 37.0 Temperature Blood Gas 14.0 Respiration Rate Blood Gas 24 Actual Respiration Rat e Blood Gas VENT - AC Modality FiO2 40.0 Blood Gas Tidal 500.0 Volume Blood Gas Low 5.0 PEEP Setting Blood Gas Cierra MCGRAW MD Critical Value Read Back Blood Gas MA Notified Whom Blood Gas 07/10/2018 7:48: Notified Time 41 PM Bedside Glucose 164 Hemoglobin 9.7 L Hematocrit 28.4 L Test 07/10/18 23:29 07/11/18 00:49 07/11/18 04:25 Blood Gas Blood arterial Specimen Source Arterial Blood 07/10/2018 11:30 Date Drawn :05 PM Arterial Blood 7.234 *L pH (Temp corrected ) Arterial Blood 16.2 L pCO2 (Temp correct) Arterial Blood 508.2 H pO2 (Temp corrected ) Arterial Blood 6.7 *L HCO3 Arterial Blood -18.7 L Base Excess Arterial Blood 98.9 H Oxygen Saturati on Dionte Test N/A Arterial Blood A-Line Gas Puncture Site Arterial 0.2 Blood Carboxyhe moglobin Arterial Blood 0.2 Methemoglobin Blood Gas A-a 188.6 H O2 Differential Oxyhemoglobin 98.5 Percent Blood Gas 37.0 Temperature Blood Gas 14.0 Respiration Rate Blood Gas 24 Actual Respiration Rat e Blood Gas VENT - AC Modality FiO2 100.0 Blood Gas Tidal 550.0 Volume Blood Gas Low 5.0 PEEP Setting Blood Gas Cierra MCGRAW MD Critical Value Read Back Blood Gas AMOL Notified Whom Blood Gas 07/10/2018 11:45 Notified Time :21 PM Lactic Acid 17.0 *H 17.1 *H Level White Blood 0.5 #L Count Red Blood Count 3.34 L Hemoglobin 9.7 L Hematocrit 28.8 L Mean 86.2 Corpuscular Volume Mean 29.0 Corpuscular Hemoglobin Mean 33.7 Corpuscular Hemoglobin Conc ent Red Cell 15.5 H Distribution Width Platelet Count 53 #L Mean Platelet 10.4 Volume Immature 4.000 H Granulocytes % Neutrophils % Lymphocytes % Monocytes % Eosinophils % Basophils % Nucleated Red 184.0 H Blood Cells % Immature 0.020 Granulocytes # Neutrophils # Lymphocytes # Monocytes # Eosinophils # Basophils # Nucleated Red Blood Cells # Sodium Level 143 Potassium Level 4.3 Chloride Level 114 H Carbon Dioxide 6 #*L Level Anion Gap 23 #H Blood Urea 41 H Nitrogen Creatinine 1.31 H Est Glomerular 43 L Filtrat Rate mL/min Glucose Level 151 Calcium Level 6.0 L Phosphorus 5.1 #H Level Magnesium Level 2.1 Total Bilirubin 0.5 Direct 0.10 Bilirubin Indirect 0.4 Bilirubin Aspartate Amino 274 H Transf (AST/SGO T) Alanine 181 H Aminotransferas e (ALT/SGPT) Alkaline 53 Phosphatase Total Protein 4.5 L Albumin 2.0 L Globulin 2.50 Albumin/Globuli 0.80 n Ratio Medications Medication Current Medications IV Flush (NS 3 ml) 3 ml PER PROTOCOL IV ; Start 06/10/18 at 18:00 Lorazepam (Ativan) 1 mg Q4H PRN IV anxiety Last administered on 06/12/18at 15:28; Admin Dose 1 MG; Start 06/11/18 at 21:30 IV Flush (NS 10 ml) 10 ml PRN PRN IV IV PROTOCOL; Start 06/16/18 at 17:00 Methylnaltrexone [place] (Relistor) 12 mg Q48H SC ; Start 06/17/18 at 08:30 Phenol (Chloraseptic Throat [place]) 2 spray Q2H PRN MT SORE THROAT Last administered on 06/17/18at 21:23; Admin Dose 2 SPRAY; Start 06/17/18 at 11:30 Morphine Sulfate (morphine) 2 mg Q4H PRN IV SEVERE PAIN LEVEL 7-10 Last adm inistered on 07/10/18at 17:11; Admin Dose 2 MG; Start 06/21/18 at 21:00 Bisacodyl (Dulcolax Supp) 10 mg DAILY PRN [place] CONSTIPATION Last administered on 07/01/18at 10:53; Admin Dose 10 MG; Start 06/25/18 at 12:00 Total Parenteral Nutrition 1,000 ml @ 60 mls/hr [id number] IV Last administered on 07/10/18 22:13; Admin Dose 60 MLS/HR; Start 06/26/18 at 20:00 Diagnostic Test (Pha) (Accu-Chek) 1 ea Q12 XX Last administered on 07/10/18at 21:35; Admin Dose 1 EA; Start 06/27/18 at 21:00 Diphenhydramine HCl (Benadryl) 25 mg Q6H PRN IV ALLERGIC REACTION; Start 06/29/18 at 11:00 Dexamethasone 20 mg/Dextrose 55 ml @ 252 mls/hr Q6H PRN IVPB ALLERGIC REACTION; Start 06/29/18 at 11:00 Prochlorperazine (Compazine Inj) 5 mg Q4H PRN IV NAUSEA AND/OR VOMITING Last administered on 07/10/18 11:57; Admin Dose 5 MG; Start 07/04/18 at 11:00 Ondansetron HCl 8 mg/Sodium Chloride 54 ml @ 216 mls/hr Q6H PRN IV NAUSEA AND/OR VOMITING Last administered on 07/05/18 23:18; Admin Dose 216 MLS/HR; Start 07/04/18 at 11:30 Famotidine (Pepcid Iv) 20 mg BID IV Last administered on 07/10/18 21:31; Admin Dose 20 MG; Start 07/05/18 at 11:00 Vancomycin HCl (Vanco Iv Per Pharmacy) VANCOMYCIN PER PHARMACY PER PROTOCOL XX ; Start 07/10/18 at 04:00 Metronidazole 100 ml @ 100 mls/hr Q8 IVPB Last administered on 07/11/18 05:57; Admin Dose 100 MLS/HR; Start 07/10/18 at 06:00 Vancomycin/Sodium Chloride 250 ml @ 125 mls/hr Q12H IVPB Last administered on 07/11/18 03:58; Admin Dose 125 MLS/HR; Start 07/10/18 at 16:00 Vasopressin 60 unit/Dextrose 60 ml @ 1.2 mls/hr Q12H IV Last administered on 07/10/18 11:17; Admin Dose 1.2 MLS/HR; Start 07/10/18 at 09:30 Phenylephrine HCl 80 mg/Dextrose 250 ml @ 18.75 mls/ hr TITRATE IV Last administered on 07/11/18at 04:50; Admin Dose 56.25 MLS/HR; Start 07/10/18 at 10:30 Miscellaneous Information (*Rx Drug Level Order Reminder*) VANCO TROUGH @ 1,500 ONCE ONCE XX ; Start 07/11/18 at 15:00; Stop 07/11/18 at 15:01 Meropenem/Sodium Chloride 50 ml @ 100 mls/hr Q12 IVPB Last administered on 07/10/18at 18:29; Admin Dose 100 MLS/HR; Start 07/10/18 at 18:00 Caspofungin 50 mg/ Sodium Chloride 250 ml @ 250 mls/hr Q24H IVPB ; Start 07/11/18 at 17:00 Midazolam HCl 50 ml @ 1 mls/hr TITRATE IV Last administered on 07/11/18at 03:16; Admin Dose 6 MLS/HR; Start 07/10/18 at 17:00 Fentanyl 100 ml @ 2.5 mls/hr TITRATE IV ; Start 07/10/18 at 17:00 Norepinephrine 32 mg/Sodium Chloride 250 ml @ 0.47 mls/hr TITRATE IV Last administered on 07/10/18at 21:59; Admin Dose 12.19 MLS/HR; Start 07/10/18 at 19:30 Sodium Bicarbonate 150 meq/Dextrose 1,150 ml @ 115 mls/hr Q10H IV Last administered on 07/11/18at 00:57; Admin Dose 75 MLS/HR; Start 07/11/18 at 00:00 Sodium Hypochlorite (Dakin'S (Dilute )) 1 applic DAILY IRR ; Start 07/11/18 at 09:00 ALFONSO WALTERS Jul 11, 2018 07:50
--- NOTE | 2018-07-11 08:22 | CONS ---
Assessment/Plan Assessment/Plan Assessment/Plan (Daily) Ventilator setting; AC of 14, tidal volume 550, PEEP of 5, 30% FiO2. Patient is currently on vasopressin 0.04 units/min, phenylephrine drip 300 mics per minute, Levophed 25 mics per minute, sodium bicarbonate 75mL/h. Versed 10 mg/h. TPN. Assessment recommendations; next 1. Patient with history of gastric cancer as well as ovarian cancer admitted for severe sepsis status post laparotomy yesterday with drainage of abdominal abscess as well as adhesion lysis. 2. Severe ongoing sepsis. On multiple pressor agents. 3. Pancytopenia possibly chemotherapy related. 4. Gram-negative sepsis. Currently on appropriate antimicrobial regimen. 5. Acute renal injury. With oliguria. Continue current supportive care. Continue TPN, current antimicrobial regimen. Follow-up chest x-ray 24 hours. Obtain ABG. Further recommendations once ABG is performed. Prognosis is very guarded. 40 minutes of critical care time was spent evaluating the patient. Consultation Date/Type/Reason Admit Date/Time Jun 10, 2018 at 18:42 Date of Consultation: Jul 11, 2018 Type of Consult Pulmonary/critical care Pulmonary consult requested for evaluation of respiratory failure and sepsis. Patient is a 47-year-old lady who was admitted on 06/10/2018 with complaints of abdominal pain. The patient has had a very prolonged stay in the hospital and was diagnosed with bowel obstruction and abdominal abscess and underwent laparotomy yesterday. She also underwent adhesion lysis as well as drainage of abdominal abscess. Patient currently is critically ill requiring multiple pressor agents. By the time I saw her in ICU, patient is orally intubated on ventilator and sedated. History was obtained from medical records. Past medical history; 1. History of partial gastrectomy last year due to gastric malignancy. 2. History of ovarian cancer. Status post resection. Medications; patient is on multiple pressor agents. Including vasopressin, phenylephrine, Levophed. Patient also on sodium bicarbonate drip. Antibiotics were reviewed. Allergies; none. Social history, family history, occupational history not available. Review of system; unable to be obtained. General exam; young female, orally intubated, sedated, currently in no distress. Date/Time of Note DATE: 07/11/18 TIME: 08:17 Past Medical History Medical History: cancer, GI bleed, peptic ulcer disease Home Meds No Active Prescriptions or Reported Meds Medications Current Medications IV Flush (NS 3 ml) 3 ml PER PROTOCOL IV ; Start 06/10/18 at 18:00 Lorazepam (Ativan) 1 mg Q4H PRN IV anxiety Last administered on 06/12/18 15:28; Admin Dose 1 MG; Start 06/11/18 at 21:30 IV Flush (NS 10 ml) 10 ml PRN PRN IV IV PROTOCOL; Start 06/16/18 at 17:00 Methylnaltrexone [place] (Relistor) 12 mg Q48H SC ; Start 06/17/18 at 08:30 Phenol (Chloraseptic Throat [place]) 2 spray Q2H PRN MT SORE THROAT Last administered on 06/17/18 21:23; Admin Dose 2 SPRAY; Start 06/17/18 at 11:30 Morphine Sulfate (morphine) 2 mg Q4H PRN IV SEVERE PAIN LEVEL 7-10 Last ad ministered on 07/10/18 17:11; Admin Dose 2 MG; Start 06/21/18 at 21:00 Bisacodyl (Dulcolax Supp) 10 mg DAILY PRN MD CONSTIPATION Last administered on 07/01/18 10:53; Admin Dose 10 MG; Start 06/25/18 at 12:00 Total Parenteral Nutrition 1,000 ml @ 60 mls/hr [id number] IV Last administered on 07/10/18 22:13; Admin Dose 60 MLS/HR; Start 06/26/18 at 20:00 Diagnostic Test (Pha) (Accu-Chek) 1 ea Q12 XX Last administered on 07/10/18 21:35; Admin Dose 1 EA; Start 06/27/18 at 21:00 Diphenhydramine HCl (Benadryl) 25 mg Q6H PRN IV ALLERGIC REACTION; Start 06/29/18 at 11:00 Dexamethasone 20 mg/Dextrose 55 ml @ 252 mls/hr Q6H PRN IVPB ALLERGIC REACTION; Start 06/29/18 at 11:00 Prochlorperazine (Compazine Inj) 5 mg Q4H PRN IV NAUSEA AND/OR VOMITING Last administered on 07/10/18 11:57; Admin Dose 5 MG; Start 07/04/18 at 11:00 Ondansetron HCl 8 mg/Sodium Chloride 54 ml @ 216 mls/hr Q6H PRN IV NAUSEA AND/OR VOMITING Last administered on 07/05/18at 23:18; Admin Dose 216 MLS/HR; Start 07/04/18 at 11:30 Famotidine (Pepcid Iv) 20 mg BID IV Last administered on 07/10/18at 21:31; Admin Dose 20 MG; Start 07/05/18 at 11:00 Vancomycin HCl (Vanco Iv Per Pharmacy) VANCOMYCIN PER PHARMACY PER PROTOCOL XX ; Start 07/10/18 at 04:00 Metronidazole 100 ml @ 100 mls/hr Q8 IVPB Last administered on 07/11/18at 05:57; Admin Dose 100 MLS/HR; Start 07/10/18 at 06:00 Vancomycin/Sodium Chloride 250 ml @ 125 mls/hr Q12H IVPB Last administered on 07/11/18at 03:58; Admin Dose 125 MLS/HR; Start 07/10/18 at 16:00 Vasopressin 60 unit/Dextrose 60 ml @ 1.2 mls/hr Q12H IV Last administered on 07/10/18at 11:17; Admin Dose 1.2 MLS/HR; Start 07/10/18 at 09:30 Phenylephrine HCl 80 mg/Dextrose 250 ml @ 18.75 mls/ hr TITRATE IV Last administered on 07/11/18at 04:50; Admin Dose 56.25 MLS/HR; Start 07/10/18 at 10:30 Miscellaneous Information (*Rx Drug Level Order Reminder*) VANCO TROUGH @ 1,500 ONCE ONCE XX ; Start 07/11/18 at 15:00; Stop 07/11/18 at 15:01 Meropenem/Sodium Chloride 50 ml @ 100 mls/hr Q12 IVPB Last administered on 07/10/18at 18:29; Admin Dose 100 MLS/HR; Start 07/10/18 at 18:00 Caspofungin 50 mg/ Sodium Chloride 250 ml @ 250 mls/hr Q24H IVPB ; Start 07/11/18 at 17:00 Midazolam HCl 50 ml @ 1 mls/hr TITRATE IV Last administered on 07/11/18at 03:16; Admin Dose 6 MLS/HR; Start 07/10/18 at 17:00 Fentanyl 100 ml @ 2.5 mls/hr TITRATE IV ; Start 07/10/18 at 17:00 Norepinephrine 32 mg/Sodium Chloride 250 ml @ 0.47 mls/hr TITRATE IV Last administered on 07/10/18at 21:59; Admin Dose 12.19 MLS/HR; Start 07/10/18 at 19:30 Sodium Bicarbonate 150 meq/Dextrose 1,150 ml @ 115 mls/hr Q10H IV Last administered on 07/11/18at 00:57; Admin Dose 75 MLS/HR; Start 07/11/18 at 00:00 Sodium Hypochlorite (Dakin'S (Dilute )) 1 applic DAILY IRR ; Start 07/11/18 at 09:00 Epinephrine 4 mg/ Dextrose 250 ml @ 0 mls/hr TITRATE IV ; Start 07/11/18 at 08:30 Allergies: Coded Allergies: No Known Allergy (Unverified , 06/10/18) Past Surgical History Past Surgical Hx: endoscopy Social History Alcohol Use: none Smoking Status: Never smoker Drug Use: none Exam/Review of Systems Exam Vitals Vital Signs Date Temp Pulse Resp B/P (MAP) Pulse Ox O2 O2 Flow FiO2 Time Delivery Rate 07/11/18 139 27 88/58 (68) 100 06:15 07/11/18 Mechanical 06:00 Ventilator 07/11/18 30 05:10 07/11/18 98.7 04:00 07/08/18 8.0 15:40 Intake and Output 07/10/18 07/10/18 07/11/18 1515:00 23:00 07:00 IntakeIntake Total 4077.365 ml 5410.115 ml 4222.89 ml OutputOutput Total 180 ml 270 ml 75 ml BalanceBalance 3897.365 ml 5140.115 ml 4147.89 ml Exam HEENT exam; supple neck, no JVD. No lymphadenopathy. Midline trachea. No thyromegaly. Orally intubated. Patient does have bilateral subconjunctival edema. Has fair dentition. No neck masses. Chest exam; diminished but clear breath sounds. S1-S2 audible, no murmurs. Regular rhythm. Abdomen exam; tense. Bowel sounds absent. Midline dressing in place. G-tube in place. Bowel sounds are absent. Extremity exam; trace edema. INSURANCE ADVISER exam; patient is sedated. Results Result Diagram: 07/11/1842407/11/18424 Results 24hrs Laboratory Tests Test 3/10/19 10:11 07/10/18 10:19 07/10/18 15:00 07/10/18 16:32 Bedside Glucose 170 White Blood 0.3 L 0.4 #L 0.4 L Count Red Blood Count 2.98 #L 3.56 L 3.85 L Hemoglobin 8.4 #L 10.2 #L 11.2 L Hematocrit 25.6 #L 30.7 L 32.4 L Mean 85.9 86.2 84.2 Corpuscular Volume Mean 28.2 L 28.7 L 29.1 Corpuscular Hemoglobin Mean 32.8 33.2 34.6 Corpuscular Hemoglobin Conc ent Red Cell 16.1 H 14.7 H 14.6 H Distribution Width Platelet Count 153 # 115 #L 100 L Mean Platelet 9.8 9.8 10.0 Volume Immature 15.400 H 0.000 L 0.000 L Granulocytes % Neutrophils % Lymphocytes % Monocytes % Eosinophils % Basophils % Nucleated Red 100 H 92 H Blood Cells % Immature 0.040 H 0.000 0.000 Granulocytes # Neutrophils # Lymphocytes # Monocytes # Eosinophils # Basophils # Nucleated Red Blood Cells # Prothrombin 23.4 #H 21.3 H Time Prothrombin 1.8 1.7 Time Ratio INR 2.07 1.84 International Normalized Rati o Sodium Level 139 138 140 Potassium Level 3.8 4.9 4.1 Chloride Level 114 H 112 H 113 H Carbon Dioxide 11 L 8 *L 12 L Level Anion Gap 14 H 18 H 15 H Blood Urea 46 H 42 H 44 H Nitrogen Creatinine 1.22 H 1.52 H 1.30 H Est Glomerular 47 L 36 L 44 L Filtrat Rate mL/min Glucose Level 156 168 156 Lactic Acid 6.2 *H 6.6 *H Level Calcium Level 7.6 L 7.2 L 7.4 L Total Bilirubin 0.3 0.2 0.4 Direct 0.00 0.00 0.00 Bilirubin Indirect 0.3 0.2 0.4 Bilirubin Aspartate Amino 12 L 22 29 Transf (AST/SGO T) Alanine 19 21 22 Aminotransferas e (ALT/SGPT) Alkaline 76 77 72 Phosphatase Total Protein 4.1 L 5.2 #L 5.2 L Albumin 1.8 L 2.3 L 2.4 L Globulin 2.30 2.90 2.80 Albumin/Globuli 0.78 0.79 0.85 n Ratio Segmented 2 L 16 L Neutrophils % (Manual) Band 14 H 4 Neutrophils % (Manual) Lymphocytes % 75 H 61 H (Manual) Reactive 2 H 3 H Lymphocytes % (Manual) Eosinophils % 4 7 (Manual) Plasma Cells % 4 (manual) Neutrophils # 0.0 L 0.1 L (Manual) Band 0.0 0.0 Neutrophils # Lymphocytes 0.3 L 0.2 L (Manual) Reactive 0.0 0.0 Lymphocytes # Plasma Cells # 0.0 (manual) Pathologist YES Review (Hematol ogy) Platelet DECREASED DECREASED Estimate Giant Platelets 20 H 11 H Polychromasia 2+ 3+ Poikilocytosis 2+ 2+ Anisocytosis 1+ 2+ Microcytosis 1+ 2+ Activated 35.7 H Partial Thrombo plast Time Blood Gas Blood Specimen arterial Source Arterial Blood 07/10/2018 3:08 Date Drawn :55 PM Arterial Blood 7.056 *L pH (Temp corrected ) Arterial Blood 30.3 L pCO2 (Temp correct) Arterial Blood 506.5 H pO2 (Temp corrected ) Arterial Blood 8.3 *L HCO3 Arterial Blood -20.8 L Base Excess Arterial Blood 99.2 H Oxygen Saturati on Dionte Test N/A Arterial Blood A-Line Gas Puncture Site Arterial 0.3 Blood Carboxyhe moglobin Arterial Blood 0 Methemoglobin Blood Gas A-a 176.2 H O2 Differential Oxyhemoglobin 98.9 Percent Blood Gas 37.0 Temperature Blood Gas VENT - AC Modality FiO2 100.[address] FERNANDES Critical Value Read Back Blood Gas [place] Notified Whom Blood Gas 07/10/2018 3:19 Notified Time :17 PM Monocytes % 2 (Manual) Basophils % 3 H (Manual) Myelocytes % 2 H (Manual) Promyelocytes % 1 H (Manual) Monocytes # 0.0 L (Manual) Basophils # 0.0 (Manual) Myelocytes # 0.0 Promyelocytes # 0.0 Test 07/10/18 18:25 07/10/18 19:31 07/10/18 21:35 07/10/18 22:49 Lactic Acid 9.8 *H Level Blood Gas Blood arterial Specimen Source Arterial Blood 07/10/2018 7:30: Date Drawn 51 PM Arterial Blood 7.256 *L pH (Temp corrected ) Arterial Blood 20.7 L pCO2 (Temp correct) Arterial Blood 175.3 H pO2 (Temp corrected ) Arterial Blood 9.0 *L HCO3 Arterial Blood -16.2 L Base Excess Arterial Blood 98.4 H Oxygen Saturati on Dionte Test N/A Arterial Blood A-Line Gas Puncture Site Arterial 0.2 Blood Carboxyhe moglobin Arterial Blood 0.1 Methemoglobin Blood Gas A-a 86.1 H O2 Differential Oxyhemoglobin 98.1 Percent Blood Gas 37.0 Temperature Blood Gas 14.0 Respiration Rate Blood Gas 24 Actual Respiration Rat e Blood Gas VENT - AC Modality FiO2 40.0 Blood Gas Tidal 500.0 Volume Blood Gas Low 5.0 PEEP Setting Blood Gas Cierra MCGRAW MD Critical Value Read Back Blood Gas MA Notified Whom Blood Gas 07/10/2018 7:48: Notified Time 41 PM Bedside Glucose 164 Hemoglobin 9.7 L Hematocrit 28.4 L Test 07/10/18 23:29 07/11/18 00:49 07/11/18 04:25 Blood Gas Blood arterial Specimen Source Arterial Blood 07/10/2018 11:30 Date Drawn :05 PM Arterial Blood 7.234 *L pH (Temp corrected ) Arterial Blood 16.2 L pCO2 (Temp correct) Arterial Blood 508.2 H pO2 (Temp corrected ) Arterial Blood 6.7 *L HCO3 Arterial Blood -18.7 L Base Excess Arterial Blood 98.9 H Oxygen Saturati on Dionte Test N/A Arterial Blood A-Line Gas Puncture Site Arterial 0.2 Blood Carboxyhe moglobin Arterial Blood 0.2 Methemoglobin Blood Gas A-a 188.6 H O2 Differential Oxyhemoglobin 98.5 Percent Blood Gas 37.0 Temperature Blood Gas 14.0 Respiration Rate Blood Gas 24 Actual Respiration Rat e Blood Gas VENT - AC Modality FiO2 100.0 Blood Gas Tidal 550.0 Volume Blood Gas Low 5.0 PEEP Setting Blood Gas Cierra MCGRAW MD Critical Value Read Back Blood Gas MA Notified Whom Blood Gas 07/10/2018 11:45 Notified Time :21 PM Lactic Acid 17.0 *H 17.1 *H Level White Blood 0.5 #L Count Red Blood Count 3.34 L Hemoglobin 9.7 L Hematocrit 28.8 L Mean 86.2 Corpuscular Volume Mean 29.0 Corpuscular Hemoglobin Mean 33.7 Corpuscular Hemoglobin Conc ent Red Cell 15.5 H Distribution Width Platelet Count 53 #L Mean Platelet 10.4 Volume Immature 4.000 H Granulocytes % Neutrophils % Lymphocytes % Monocytes % Eosinophils % Basophils % Nucleated Red 184.0 H Blood Cells % Immature 0.020 Granulocytes # Neutrophils # Lymphocytes # Monocytes # Eosinophils # Basophils # Nucleated Red Blood Cells # Sodium Level 143 Potassium Level 4.3 Chloride Level 114 H Carbon Dioxide 6 #*L Level Anion Gap 23 #H Blood Urea 41 H Nitrogen Creatinine 1.31 H Est Glomerular 43 L Filtrat Rate mL/min Glucose Level 151 Calcium Level 6.0 L Phosphorus 5.1 #H Level Magnesium Level 2.1 Total Bilirubin 0.5 Direct 0.10 Bilirubin Indirect 0.4 Bilirubin Aspartate Amino 274 H Transf (AST/SGO T) Alanine 181 H Aminotransferas e (ALT/SGPT) Alkaline 53 Phosphatase Total Protein 4.5 L Albumin 2.0 L Globulin 2.50 Albumin/Globuli 0.80 n Ratio Medications Medication Current Medications IV Flush (NS 3 ml) 3 ml PER PROTOCOL IV ; Start 06/10/18 at 18:00 Lorazepam (Ativan) 1 mg Q4H PRN IV anxiety Last administered on 06/12/18at 15:28; Admin Dose 1 MG; Start 06/11/18 at 21:30 IV Flush (NS 10 ml) 10 ml PRN PRN IV IV PROTOCOL; Start 06/16/18 at 17:00 Methylnaltrexone [place] (Relistor) 12 mg Q48H SC ; Start 06/17/18 at 08:30 Phenol (Chloraseptic Throat [place]) 2 spray Q2H PRN MT SORE THROAT Last administered on 06/17/18at 21:23; Admin Dose 2 SPRAY; Start 06/17/18 at 11:30 Morphine Sulfate (morphine) 2 mg Q4H PRN IV SEVERE PAIN LEVEL 7-10 Last administered on 07/10/18 17:11; Admin Dose 2 MG; Start 06/21/18 at 21:00 Bisacodyl (Dulcolax Supp) 10 mg DAILY PRN MD CONSTIPATION Last administered on 07/01/18at 10:53; Admin Dose 10 MG; Start 06/25/18 at 12:00 Total Parenteral Nutrition 1,000 ml @ 60 mls/hr [id number] IV Last administered on 07/10/18at 22:13; Admin Dose 60 MLS/HR; Start 06/26/18 at 20:00 Diagnostic Test (Pha) (Accu-Chek) 1 ea Q12 XX Last administered on 07/10/18 21:35; Admin Dose 1 EA; Start 06/27/18 at 21:00 Diphenhydramine HCl (Benadryl) 25 mg Q6H PRN IV ALLERGIC REACTION; Start 06/29/18 at 11:00 Dexamethasone 20 mg/Dextrose 55 ml @ 252 mls/hr Q6H PRN IVPB ALLERGIC REACTION; Start 06/29/18 at 11:00 Prochlorperazine (Compazine Inj) 5 mg Q4H PRN IV NAUSEA AND/OR VOMITING Last administered on 07/10/18 11:57; Admin Dose 5 MG; Start 07/04/18 at 11:00 Ondansetron HCl 8 mg/Sodium Chloride 54 ml @ 216 mls/hr Q6H PRN IV NAUSEA AND/OR VOMITING Last administered on 07/05/18 23:18; Admin Dose 216 MLS/HR; Start 07/04/18 at 11:30 Famotidine (Pepcid Iv) 20 mg BID IV Last administered on 07/10/18 21:31; Admin Dose 20 MG; Start 07/05/18 at 11:00 Vancomycin HCl (Vanco Iv Per Pharmacy) VANCOMYCIN PER PHARMACY PER PROTOCOL XX ; Start 07/10/18 at 04:00 Metronidazole 100 ml @ 100 mls/hr Q8 IVPB Last administered on 07/11/18 05:57 ; Admin Dose 100 MLS/HR; Start 07/10/18 at 06:00 Vancomycin/Sodium Chloride 250 ml @ 125 mls/hr Q12H IVPB Last administered on 07/11/18 03:58; Admin Dose 125 MLS/HR; Start 07/10/18 at 16:00 Vasopressin 60 unit/Dextrose 60 ml @ 1.2 mls/hr Q12H IV Last administered on 07/10/18 11:17; Admin Dose 1.2 MLS/HR; Start 07/10/18 at 09:30 Phenylephrine HCl 80 mg/Dextrose 250 ml @ 18.75 mls/ hr TITRATE IV Last administered on 07/11/18 04:50; Admin Dose 56.25 MLS/HR; Start 07/10/18 at 10:30 Miscellaneous Information (*Rx Drug Level Order Reminder*) VANCO TROUGH 3/ 11 @ 1,500 ONCE ONCE XX ; Start 07/11/18 at 15:00; Stop 07/11/18 at 15:01 Meropenem/Sodium Chloride 50 ml @ 100 mls/hr Q12 IVPB Last administered on 07/10/18at 18:29; Admin Dose 100 MLS/HR; Start 07/10/18 at 18:00 Caspofungin 50 mg/ Sodium Chloride 250 ml @ 250 mls/hr Q24H IVPB ; Start 07/11/18 at 17:00 Midazolam HCl 50 ml @ 1 mls/hr TITRATE IV Last administered on 07/11/18at 03:16; Admin Dose 6 MLS/HR; Start 07/10/18 at 17:00 Fentanyl 100 ml @ 2.5 mls/hr TITRATE IV ; Start 07/10/18 at 17:00 Norepinephrine 32 mg/Sodium Chloride 250 ml @ 0.47 mls/hr TITRATE IV Last administered on 07/10/18at 21:59; Admin Dose 12.19 MLS/HR; Start 07/10/18 at 19:30 Sodium Bicarbonate 150 meq/Dextrose 1,150 ml @ 115 mls/hr Q10H IV Last a dministered on 07/11/18at 00:57; Admin Dose 75 MLS/HR; Start 07/11/18 at 00:00 Sodium Hypochlorite (Dakin'S (Dilute )) 1 applic DAILY IRR ; Start 07/11/18 at 09:00 Epinephrine 4 mg/ Dextrose 250 ml @ 0 mls/hr TITRATE IV ; Start 07/11/18 at 08:30 MARY ANN ARAIZA Jul 11, 2018 08:22
[2018-07-11] MEDS: METHYLNALTREXONE 12 MG/0.6 ML VIAL SC SCH ×2 (08:30→09:35)
[2018-07-11] MEDS ORDERED: EPINEPHrine 4 MG in DEXTROSE 5% 246 ML IV SCH (08:30)
[2018-07-11] MEDS ORDERED: NA BICARBONATE 8.4% 50 ML SYG ONE (08:33)
[2018-07-11] MEDS ORDERED: NA BICARBONATE 8.4% 50 ML SYG IV STA (08:34)
--- NOTE | 2018-07-11 09:22 | PN ---
DATE: 07/11/2018 SUBJECTIVE: The patient is critically ill. The patient yesterday underwent surgery for intraabdomin al wall abscess. The patient had drainage and debridement. Postoperatively, the patient is in shock on 3 pressors, bicarbonate drip with minimal urinary output, on full ventilatory support. No other events noted. OBJECTIVE: VITAL SIGNS: Blood pressure is 88/58, respirations 27, pulse 136, temperature 98.6. HEENT: Head is normocephalic. NECK: Supple. HEART: Tachycardic. LUNGS: Show diminished breath sounds at the base. ABDOMEN: Soft, nontender to palpation, noted drain. EXTREMITIES: Negative for clubbing, cyanosis, no edema. DERMATOLOGIC: No rashes. MUSCULOSKELETAL: No joint effusions. NEUROLOGIC: No focal deficits. MEDICATIONS: Reviewed. LABORATORY DATA: Shows a white count 0.5, hemoglobin 9.7, platelet count is 53. Sodium 143, potassi um 4.3, chloride 114, bicarbonate 6, BUN 41, creatinine 1.31. Lactic acid was 17. ABG from 07/11/19 19 was reviewed. IMAGING STUDIES: Reviewed. Microbiology was reviewed. ASSESSMENT AND PLAN: 1. Oliguric acute kidney injury with previously normal baseline creatinine. Etiology is secondary t o acute tubular necrosis due to septic shock, ischemic hypoperfusion. The patient currently is in in jury phase of acute tubular necrosis. Recommendation is to continue current medical management. Con tinue pressor support to maintain MAP above 65. Continue IV fluid, antibiotic therapy, monitor close ly. 2. Metabolic acidosis secondary to lactic acidosis. The patient's ABG was reviewed. Continue bicar bonate drip. We will continue to push ampules of bicarbonate as needed. 3. Anemia. Continue to monitor hemoglobin and hematocrit levels, transfuse as needed. 4. Mineral bone disorder, monitor calcium and phosphorus levels. 5. Neutropenia secondary to recent chemotherapy. Continue to monitor. 6. Intraabdominal abscess. The patient is status post surgical debridement. Continue medical manag ement. Continue IV antibiotics. Follow up with general surgery, Infectious Disease. 7. Tachyarrhythmia. 8. Metastatic gastric carcinoma status post chemotherapy. 9. Nutrition. The patient remains on TPN. Please note I spent over 30 minutes of critical care time with this patient. The patient has overall poor prognosis. Dictated By: BRAYDEN MAHMOOD/LORI Conf#: [id number] [facility]#: [id number] CC: DARVIN BOURNE MD; ELMER CAVAZOS MD; TOBI THOMAS MD;*[facility]*
--- NOTE | 2018-07-11 09:26 | PN ---
Date/Time of Note Date/Time of Note DATE: 07/11/18 TIME: 09:26 Objective Vitals Vital Signs Date Temp Pulse Resp B/P (MAP) Pulse Ox O2 O2 Flow FiO2 Time Delivery Rate 07/11/18 131 28 103/53 100 09:15 (70) 07/11/18 Mechanica 09:00 l Ventilato r 07/11/18 100.0 08:00 07/11/18 30 07:40 07/08/18 8.0 15:40 Intake and Output 07/10/18 07/10/18 07/11/18 1515:00 23:00 07:00 IntakeIntake Total 4077.365 ml 5410.115 ml 4222.89 ml OutputOutput Total 180 ml 270 ml 85 ml BalanceBalance 3897.365 ml 5140.115 ml 4137.89 ml Results Result Diagram: 07/11/18 0425 07/11/18 0425 Medications Medications Current Medications IV Flush (NS 3 ml) 3 ml PER PROTOCOL IV ; Start 06/10/18 at 18:00 Lorazepam (Ativan) 1 mg Q4H PRN IV anxiety Last administered on 06/12/18at 15:28; Admin Dose 1 MG; Start 06/11/18 at 21:30 IV Flush (NS 10 ml) 10 ml PRN PRN IV IV PROTOCOL; Start 06/16/18 at 17:00 Methylnaltrexone [place] (Relistor) 12 mg Q48H SC ; Start 06/17/18 at 08:30 Phenol (Chloraseptic Throat [place]) 2 spray Q2H PRN MT SORE THROAT Last administered on 06/17/18at 21:23; Admin Dose 2 SPRAY; Start 06/17/18 at 11:30 Morphine Sulfate (morphine) 2 mg Q4H PRN IV SEVERE PAIN LEVEL 7-10 Last administered on 07/10/18at 17:11; Admin Dose 2 MG; Start 06/21/18 at 21:00 Bisacodyl (Dulcolax Supp) 10 mg DAILY PRN [place] CONSTIPATION Last administered on 07/01/18at 10:53; Admin Dose 10 MG; Start 06/25/18 at 12:00 Total Parenteral Nutrition 1,000 ml @ 60 mls/hr [id number] IV Last administered on 07/10/18at 22:13; Admin Dose 60 MLS/HR; Start 06/26/18 at 20:00 Diagnostic Test (Pha) (Accu-Chek) 1 ea Q12 XX Last administered on 07/10/18 21:35; Admin Dose 1 EA; Start 06/27/18 at 21:00 Diphenhydramine HCl (Benadryl) 25 mg Q6H PRN IV ALLERGIC REACTION; Start 06/29/18 at 11:00 Dexamethasone 20 mg/Dextrose 55 ml @ 252 mls/hr Q6H PRN IVPB ALLERGIC REACTION; Start 06/29/18 at 11:00 Prochlorperazine (Compazine Inj) 5 mg Q4H PRN IV NAUSEA AND/OR VOMITING Last administered on 07/10/18 11:57; Admin Dose 5 MG; Start 07/04/18 at 11:00 Ondansetron HCl 8 mg/Sodium Chloride 54 ml @ 216 mls/hr Q6H PRN IV NAUSEA AND /OR VOMITING Last administered on 07/05/18 23:18; Admin Dose 216 MLS/HR; Start 07/04/18 at 11:30 Famotidine (Pepcid Iv) 20 mg BID IV Last administered on 07/10/18 21:31; Admin Dose 20 MG; Start 07/05/18 at 11:00 Vancomycin HCl (Vanco Iv Per Pharmacy) VANCOMYCIN PER PHARMACY PER PROTOCOL XX ; Start 07/10/18 at 04:00 Metronidazole 100 ml @ 100 mls/hr Q8 IVPB Last administered on 07/11/18 05:57; Admin Dose 100 MLS/HR; Start 07/10/18 at 06:00 Vancomycin/Sodium Chloride 250 ml @ 125 mls/hr Q12H IVPB Last administered on 07/11/18 03:58; Admin Dose 125 MLS/HR; Start 07/10/18 at 16:00 Vasopressin 60 unit/Dextrose 60 ml @ 1.2 mls/hr Q12H IV Last administered on 07/10/18 11:17; Admin Dose 1.2 MLS/HR; Start 07/10/18 at 09:30 Phenylephrine HCl 80 mg/Dextrose 250 ml @ 18.75 mls/ hr TITRATE IV Last administered on 07/11/18 08:52; Admin Dose 56.25 MLS/HR; Start 07/10/18 at 10:30 Miscellaneous Information (*Rx Drug Level Order Reminder*) VANCO TROUGH @ 1,500 ONCE ONCE XX ; Start 07/11/18 at 15:00; Stop 07/11/18 at 15:01 Meropenem/Sodium Chloride 50 ml @ 100 mls/hr Q12 IVPB Last administered on 07/10/18at 18:29; Admin Dose 100 MLS/HR; Start 07/10/18 at 18:00 Caspofungin 50 mg/ Sodium Chloride 250 ml @ 250 mls/hr Q24H IVPB ; Start 07/11/18 at 17:00 Midazolam HCl 50 ml @ 1 mls/hr TITRATE IV Last administered on 07/11/18at 03:16; Admin Dose 6 MLS/HR; Start 07/10/18 at 17:00 Fentanyl 100 ml @ 2.5 mls/hr TITRATE IV ; Start 07/10/18 at 17:00 Norepinephrine 32 mg/Sodium Chloride 250 ml @ 0.47 mls/hr TITRATE IV Last administered on 07/10/18at 21:59; Admin Dose 12.19 MLS/HR; Start 07/10/18 at 19:30 Sodium Bicarbonate 150 meq/Dextrose 1,150 ml @ 115 mls/hr Q10H IV Last admi nistered on 07/11/18at 00:57; Admin Dose 75 MLS/HR; Start 07/11/18 at 00:00 Sodium Hypochlorite (Dakin'S (Dilute )) 1 applic DAILY IRR ; Start 07/11/18 at 09:00 Epinephrine 4 mg/ Dextrose 250 ml @ 0 mls/hr TITRATE IV Last administered on 07/11/18at 08:37; Admin Dose 3.375 MLS/HR; Start 07/11/18 at 08:30 Sodium Chloride 1,000 ml @ 1,000 mls/hr Q1H ONCE IV ; Start 07/11/18 at 09:30; Stop 07/11/18 at 10:29 Calcium Gluconate 2 gm/Dextrose 120 ml @ 60 mls/hr ONCE ONCE IVPB ; Start 07/11/18 at 09:30; Stop 07/11/18 at 11:29; Status UNV VTE Prophylaxis Risk score (from Ns)>0 risk: 12 SCD applied (from Ns): Yes Lines/Catheters IV Catheter Type: Urias in Place: Yes Cont'd urias catheter reason: terminal illness/intractable pain Assessment/Plan Hospital Course Subjective Patient remains sedated on Versed, worsening blood pressure, for pressors Objective Physical exam General: Patient is laying in bed, sedated and intubated Mentation: Patient is intubated and sedated Head: Normocephalic atraumatic Eyes: EOMI, pupils reactive to light but sluggish Neck: Supple, nontender, midline Respiratory: Clear to auscultation bilaterally Cardiovascular: regular rate, no obvious murmurs Gastrointestinal: Surgical site bandaged, abdomen is moderately rigid Neurological: Unable to assess due to sedation Skin: Surgical site bandaged Assessment/Plan 1. Septic shock secondary to intraabdominal source - patient on pressor support with goal MAP >65 - CT scan results noted with J tube leak. Gen surgery took patient to OR with findings of abscess formation and necrotic tissue secondary to bile leakage into abdominal cavity on 07/10/17 - Continue IV antibiotics and pressor support as needed -profound lactic acid elevation lactic acidosis -2/2 to above intraabdoinal infection, s/p removal of necrotic tissue and abscess removal -bicarb drip started per specialist 2. Acute hypoxic respiratory failure - On mechanical ventilation following OR - Pulmonology consultation placed for vent management 3. Partial obstructive gastric outlet - Surgery on board and appreciate recommendations. J tube placed 07/08, repositioned on 07/10. - s/p placement of stent by GI. Repeat SBFT shows patency of stent 4. 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 Completed first round of chemotherapy and will need to follow up as outpatient for further treatment - perma cath placement when stable - Patient's prior oncologist is Dr Mae at [facility]. but she wishes to follow up with Dr. Vick now. 5. JAMAL - trending up in setting of septic shock - will continue on IVF - nephrology consultation appreciated 6. PUD - GI on board and appreciate recommendations - Pepcid BID 7. Constipation - bowel regimen when stable 8. Disposition -Family conference with palliative care physician was done, patient's children are in agreement with DO NOT RESUSITATE. - Remains intubated in ICU and will continue weaning pressor support as tolerated -more than 40 minutes of critical care time was spent on this encounter - Continue all care. Plans for portacath placement when stable ALYX HENDRIX Jul 11, 2018 09:26
[2018-07-11] MEDS ORDERED: CALCIUM GLUCONATE 10% 2 GM in DEXTROSE 5% 100 ML IVPB ONE (09:30)
[2018-07-11] MEDS: VASOPRESSIN 60 UNIT in DEXTROSE 5% 57 ML IV SCH (09:30)
[2018-07-11] MEDS: SODIUM HYPOCHLORITE (1/40) 1 APPLIC BTL IRR SCH (09:31)
[2018-07-11] MEDS: ACCU-CHEK XX SCH (09:31)
[2018-07-11] MEDS: MEROPENEM 500MG/50 ML (PMX) 50 ML IVPB SCH ×2 (09:36→21:10)
[2018-07-11] MEDS: FAMOTIDINE 20 MG INJ IV SCH ×2 (09:47→21:10)
--- NOTE | 2018-07-11 11:17 | CONS ---
Assessment/Plan Assessment/Plan Hospital Course (Demo Recall) Patient is on multiple pressors nonresponsive intubated in no distress. She is now DNR status. She is maxed on pressors. Vital signs: T-max 100.5 to current 100 pulse 130 respirations 28 blood pressure 92/49 saturation 100 on 30 FiO2 WBC 0.5 H&H 9.7 and 28.8 platelets 53 BUN 43 creatinine 1.31 lactic acid 18.2 Microbiology: Blood cultures growing gram-negative rods abdominal abscess c ulture growing alpha hemolytic strep species, gram-negative rods, urine culture negative Chest x-ray yesterday revealed no acute infiltrates or pulmonary edema Indwelling: Right upper extremity PICC line, right IJ triple-lumen catheter, Ramsey catheter, left-sided abdominal drainage catheters, a line Antimicrobials: Vancomycin, meropenem, Cancidas Physical examination: This is a well-developed well-nourished middle-aged woman who is intubated sedated in no distress. Head atraumatic normocephalic. Neck is supple. Chest rise symmetrical breath sounds diminished bases. Heart: S1-S2 tachycardic regular abdomen distended no bowel tones auscultated extremities mottled and cyanotic Assessment: 1. Sepsis with shock 2. Multisystem organ failure 3. Gram-negative gaston bacteremia 4. Abdominal wall abscess with necrosis status post I&D abdominal exploration with lysis of adhesions 3. Acute renal failure 4. Acute respiratory failure 5. Gastric and ovarian cancer 6. Pancytopenia with neutropenia Plan: Patient remains hemodynamically unstable and doing poorly, she is on broad-spectrum antibiotics and antifungal coverage, pending blood cultures and intraoperative cultures. MARCELLO RN Consultation Date/Type/Reason Admit Date/Time Jun 10, 2018 at 18:42 Initial Consult Date 07/11/18 Type of Consult id Requesting Provider: ELMER CAVAZOS MD Date/Time of Note DATE: 07/11/18 TIME: 11:16 Exam/Review of Systems Exam Vitals Vital Signs Date Temp Pulse Resp B/P (MAP) Pulse Ox O2 O2 Flow FiO2 Time Delivery Rate 07/11/18 31 20 100 30 09:32 07/11/18 103/53 09:15 (70) 07/11/18 Mechanica 09:00 l Ventilato r 07/11/18 100.0 08:00 07/08/18 8.0 15:40 Intake and Output 3/10/19 3/10/19 3/11/19 1414:59 22:59 06:59 IntakeIntake Total 3757.865 ml 5696.025 ml 4249.08 ml OutputOutput Total 180 ml 255 ml 90 ml BalanceBalance 3577.865 ml 5441.025 ml 4159.08 ml Results Result Diagram: 07/11/18 0425 07/11/18 0425 Results 24hrs Laboratory Tests Test 07/10/18 15:00 07/10/18 16:32 07/10/18 18:25 07/10/18 19:31 White Blood 0.4 #L 0.4 L Count Red Blood Count 3.56 L 3.85 L Hemoglobin 10.2 #L 11.2 L Hematocrit 30.7 L 32.4 L Mean 86.2 84.2 Corpuscular Volume Mean 28.7 L 29.1 Corpuscular Hemoglobin Mean 33.2 34.6 Corpuscular Hemoglobin Conc ent Red Cell 14.7 H 14.6 H Distribution Width Platelet Count 115 #L 100 L Mean Platelet 9.8 10.0 Volume Immature 0.000 L 0.000 L Granulocytes % Neutrophils % Segmented 2 L 16 L Neutrophils % (Manual) Band 14 H 4 Neutrophils % (Manual) Lymphocytes % Lymphocytes % 75 H 61 H (Manual) Reactive 2 H 3 H Lymphocytes % (Manual) Monocytes % Eosinophils % Eosinophils % 4 7 (Manual) Basophils % Plasma Cells % 4 (manual) Nucleated Red 100 H 92 H Blood Cells % Immature 0.000 0.000 Granulocytes # Neutrophils # Neutrophils # 0.0 L 0.1 L (Manual) Band 0.0 0.0 Neutrophils # Lymphocytes 0.3 L 0.2 L (Manual) Lymphocytes # Reactive 0.0 0.0 Lymphocytes # Monocytes # Eosinophils # Basophils # Plasma Cells # 0.0 (manual) Nucleated Red Blood Cells # Pathologist YES Review (Hematol ogy) Platelet DECREASED DECREASED Estimate Giant Platelets 20 H 11 H Polychromasia 2+ 3+ Poikilocytosis 2+ 2+ Anisocytosis 1+ 2+ Microcytosis 1+ 2+ Prothrombin 21.3 H Time Prothrombin 1.7 Time Ratio INR 1.84 International Normalized Rati o Activated 35.7 H Partial Thrombo plast Time Blood Gas Blood arterial Blood Specimen arterial Source Arterial Blood 07/10/2018 3:08: 07/10/2018 7:30 Date Drawn 55 PM :51 PM Arterial Blood 7.056 *L 7.256 *L pH (Temp corrected ) Arterial Blood 30.3 L 20.7 L pCO2 (Temp correct) Arterial Blood 506.5 H 175.3 H pO2 (Temp corrected ) Arterial Blood 8.3 *L 9.0 *L HCO3 Arterial Blood -20.8 L -16.2 L Base Excess Arterial Blood 99.2 H 98.4 H Oxygen Saturati on Dionte Test N/A N/A Arterial Blood A-Line A-Line Gas Puncture Site Arterial 0.3 0.2 Blood Carboxyhe moglobin Arterial Blood 0 0.1 Methemoglobin Blood Gas A-a 176.2 H 86.1 H O2 Differential Oxyhemoglobin 98.9 98.1 Percent Blood Gas 37.0 37.0 Temperature Blood Gas VENT - AC VENT - AC Modality FiO2 100.0 40.0 Blood Gas Cierra GUTIERREZ MD Critical Value Read Back Blood Gas Nicanor CARMICHAEL Notified Whom Blood Gas 07/10/2018 3:19: 07/10/2018 7:48 Notified Time 17 PM :41 PM Sodium Level 138 140 Potassium Level 4.9 4.1 Chloride Level 112 H 113 H Carbon Dioxide 8 *L 12 L Level Anion Gap 18 H 15 H Blood Urea 42 H 44 H Nitrogen Creatinine 1.52 H 1.30 H Est Glomerular 36 L 44 L Filtrat Rate mL/min Glucose Level 168 156 Calcium Level 7.2 L 7.4 L Total Bilirubin 0.2 0.4 Direct 0.00 0.00 Bilirubin Indirect 0.2 0.4 Bilirubin Aspartate Amino 22 29 Transf (AST/SGO T) Alanine 21 22 Aminotransferas e (ALT/SGPT) Alkaline 77 72 Phosphatase Total Protein 5.2 #L 5.2 L Albumin 2.3 L 2.4 L Globulin 2.90 2.80 Albumin/Globuli 0.79 0.85 n Ratio Monocytes % 2 (Manual) Basophils % 3 H (Manual) Myelocytes % 2 H (Manual) Promyelocytes % 1 H (Manual) Monocytes # 0.0 L (Manual) Basophils # 0.0 (Manual) Myelocytes # 0.0 Promyelocytes # 0.0 Lactic Acid 6.6 *H 9.8 *H Level Blood Gas 14.0 Respiration Rate Blood Gas 24 Actual Respiration Rat e Blood Gas Tidal 500.0 Volume Blood Gas Low 5.0 PEEP Setting Test 07/10/18 21:35 07/10/18 22:49 07/10/18 23:29 07/11/18 00:49 Bedside Glucose 164 Hemoglobin 9.7 L Hematocrit 28.4 L Blood Gas Blood Specimen arterial Source Arterial Blood 07/10/2018 11:3 Date Drawn 0:05 PM Arterial Blood 7.234 *L pH (Temp corrected ) Arterial Blood 16.2 L pCO2 (Temp correct) Arterial Blood 508.2 H pO2 (Temp corrected ) Arterial Blood 6.7 *L HCO3 Arterial Blood -18.7 L Base Excess Arterial Blood 98.9 H Oxygen Saturati on Dionte Test N/A Arterial Blood A-Line Gas Puncture Site Arterial 0.2 Blood Carboxyhe moglobin Arterial Blood 0.2 Methemoglobin Blood Gas A-a 188.6 H O2 Differential Oxyhemoglobin 98.5 Percent Blood Gas 37.0 Temperature Blood Gas 14.0 Respiration Rate Blood Gas 24 Actual Respiration Rat e Blood Gas VENT - AC Modality FiO2 100.0 Blood Gas Tidal 550.0 Volume Blood Gas Low 5.0 PEEP Setting Blood Gas Cierra MCGRAW MD Critical Value Read Back Blood Gas MA Notified Whom Blood Gas 07/10/2018 11:4 Notified Time 5:21 PM Lactic Acid 17.0 *H Level Test 07/11/18 04:25 07/11/18 07:00 07/11/18 08:58 07/11/18 09:28 White Blood 0.5 #L Count Red Blood Count 3.34 L Hemoglobin 9.7 L Hematocrit 28.8 L Mean 86.2 Corpuscular Volume Mean 29.0 Corpuscular Hemoglobin Mean 33.7 Corpuscular Hemoglobin Conc ent Red Cell 15.5 H Distribution Width Platelet Count 53 #L Mean Platelet 10.4 Volume Immature 4.000 H Granulocytes % Neutrophils % Segmented 3 L Neutrophils % (Manual) Band 1 Neutrophils % (Manual) Lymphocytes % Lymphocytes % 95 H (Manual) Monocytes % Eosinophils % Eosinophils % 1 (Manual) Basophils % Nucleated Red 448 H Blood Cells % Immature 0.020 Granulocytes # Neutrophils # Neutrophils # 0.0 L (Manual) Band 0.0 Neutrophils # Lymphocytes 0.4 L (Manual) Lymphocytes # Monocytes # Eosinophils # Basophils # Nucleated Red Blood Cells # Platelet SIG DECREASED Estimate Giant Platelets 2 H Polychromasia 2+ Hypochromasia 1+ Poikilocytosis 3+ Anisocytosis 1+ Microcytosis 1+ Spherocytes 1+ Sodium Level 143 Potassium Level 4.3 Chloride Level 114 H Carbon Dioxide 6 #*L Level Anion Gap 23 #H Blood Urea 41 H Nitrogen Creatinine 1.31 H Est Glomerular 43 L Filtrat Rate mL/min Glucose Level 151 Lactic Acid 17.1 *H 18.2 *H Level Calcium Level 6.0 L Phosphorus 5.1 #H Level Magnesium Level 2.1 Total Bilirubin 0.5 Direct 0.10 Bilirubin Indirect 0.4 Bilirubin Aspartate Amino 274 H Transf (AST/SGO T) Alanine 181 H Aminotransferas e (ALT/SGPT) Alkaline 53 Phosphatase Total Protein 4.5 L Albumin 2.0 L Globulin 2.50 Albumin/Globuli 0.80 n Ratio Blood Gas Blood Specimen arterial Source Arterial Blood 07/11/2018 8:18 Date Drawn :14 AM Arterial Blood 7.173 *L pH (Temp corrected ) Arterial Blood 19.4 L pCO2 (Temp correct) Arterial Blood 114.2 H pO2 (Temp corrected ) Arterial Blood 7.0 *L HCO3 Arterial Blood -19.6 L Base Excess Arterial Blood 96.9 Oxygen Saturati on Dionte Test N/A Arterial Blood A-Line Gas Puncture Site Arterial 0.3 Blood Carboxyhe moglobin Arterial Blood 0.2 Methemoglobin Blood Gas A-a 76.9 H O2 Differential Oxyhemoglobin 96.4 Percent Blood Gas 37.0 Temperature Blood Gas 14.0 Respiration Rate Blood Gas 26 Actual Respiration Rat e Blood Gas VENT - AC Modality FiO2 30.0 Blood Gas Tidal 550.0 Volume Blood Gas Low 5.0 PEEP Setting Blood Gas [id number] Critical Value RN Read Back Blood Gas TM Notified Whom Blood Gas 07/11/2018 8:26 Notified Time :51 AM Bedside Glucose 213 Medications Medication Current Medications IV Flush (NS 3 ml) 3 ml PER PROTOCOL IV ; Start 06/10/18 at 18:00 Lorazepam (Ativan) 1 mg Q4H PRN IV anxiety Last administered on 06/12/18at 15:28; Admin Dose 1 MG; Start 06/11/18 at 21:30 IV Flush (NS 10 ml) 10 ml PRN PRN IV IV PROTOCOL; Start 06/16/18 at 17:00 Methylnaltrexone [place] (Relistor) 12 mg Q48H SC Last administered on 07/11/18 09:35; Admin Dose 12 MG; Start 06/17/18 at 08:30 Phenol (Chloraseptic Throat [place]) 2 spray Q2H PRN [place] SORE THROAT Last administered on 06/17/18 21:23; Admin Dose 2 SPRAY; Start 06/17/18 at 11:30 Morphine Sulfate (morphine) 2 mg Q4H PRN IV SEVERE PAIN LEVEL 7-10 Last administered on 07/10/18 17:11; Admin Dose 2 MG; Start 06/21/18 at 21:00 Bisacodyl (Dulcolax Supp) 10 mg DAILY PRN [place] CONSTIPATION Last administered on 07/01/18 10:53; Admin Dose 10 MG; Start 06/25/18 at 12:00 Total Parenteral Nutrition 1,000 ml @ 60 mls/hr [id number] IV Last administered on 07/10/18 22:13; Admin Dose 60 MLS/HR; Start 06/26/18 at 20:00 Diagnostic Test (Pha) (Accu-Chek) 1 ea Q12 XX Last administered on 07/11/18 09:31; Admin Dose 1 EA; Start 06/27/18 at 21:00 Diphenhydramine HCl (Benadryl) 25 mg Q6H PRN IV ALLERGIC REACTION; Start 06/29/18 at 11:00 Dexamethasone 20 mg/Dextrose 55 ml @ 252 mls/hr Q6H PRN IVPB ALLERGIC REACTION; Start 06/29/18 at 11:00 Prochlorperazine (Compazine Inj) 5 mg Q4H PRN IV NAUSEA AND/OR VOMITING Last administered on 07/10/18 11:57; Admin Dose 5 MG; Start 07/04/18 at 11:00 Ondansetron HCl 8 mg/Sodium Chloride 54 ml @ 216 mls/hr Q6H PRN IV NAUSEA AND/OR VOMITING Last administered on 07/05/18 23:18; Admin Dose 216 MLS/HR; Start 07/04/18 at 11:30 Famotidine (Pepcid Iv) 20 mg BID IV Last administered on 07/11/18 09:47; Admin Dose 20 MG; Start 07/05/18 at 11:00 Vancomycin HCl (Vanco Iv Per Pharmacy) VANCOMYCIN PER PHARMACY PER PROTOCOL XX ; Start 07/10/18 at 04:00 Metronidazole 100 ml @ 100 mls/hr Q8 IVPB Last administered on 07/11/18at 05:57; Admin Dose 100 MLS/HR; Start 07/10/18 at 06:00 Vancomycin/Sodium Chloride 250 ml @ 125 mls/hr Q12H IVPB Last administered on 07/11/18at 03:58; Admin Dose 125 MLS/HR; Start 07/10/18 at 16:00 Vasopressin 60 unit/Dextrose 60 ml @ 1.2 mls/hr Q12H IV Last administered on 07/10/18at 11:17; Admin Dose 1.2 MLS/HR; Start 07/10/18 at 09:30 Phenylephrine HCl 80 mg/Dextrose 250 ml @ 18.75 mls/ hr TITRATE IV Last administered on 07/11/18at 08:52; Admin Dose 56.25 MLS/HR; Start 07/10/18 at 10:30 Miscellaneous Information (*Rx Drug Level Order Reminder*) VANCO TROUGH @ 1,500 ONCE ONCE XX ; Start 07/11/18 at 15:00; Stop 07/11/18 at 15:01 Meropenem/Sodium Chloride 50 ml @ 100 mls/hr Q12 IVPB Last administered on 07/11/18at 09:36; Admin Dose 100 MLS/HR; Start 07/10/18 at 18:00 Caspofungin 50 mg/ Sodium Chloride 250 ml @ 250 mls/hr Q24H IVPB ; Start 07/11/18 at 17:00 Midazolam HCl 50 ml @ 1 mls/hr TITRATE IV Last administered on 07/11/18at 10:41; Admin Dose 9 MLS/HR; Start 07/10/18 at 17:00 Fentanyl 100 ml @ 2.5 mls/hr TITRATE IV ; Start 07/10/18 at 17:00 Norepinephrine 32 mg/Sodium Chloride 250 ml @ 0.47 mls/hr TITRATE IV Last administered on 07/10/18at 21:59; Admin Dose 12.19 MLS/HR; Start 07/10/18 at 19:30 Sodium Bicarbonate 150 meq/Dextrose 1,150 ml @ 115 mls/hr Q10H IV Last administered on 07/11/18at 00:57; Admin Dose 75 MLS/HR; Start 07/11/18 at 00:00 Sodium Hypochlorite (Dakin'S (Dilute )) 1 applic DAILY IRR Last administered on 07/11/18at 09:31; Admin Dose 1 APPLIC; Start 07/11/18 at 09:00 Epinephrine 4 mg/ Dextrose 250 ml @ 0 mls/hr TITRATE IV Last administered on 07/11/18at 08:37; Admin Dose 3.375 MLS/HR; Start 07/11/18 at 08:30 Calcium Gluconate 2 gm/Dextrose 120 ml @ 60 mls/hr ONCE ONCE IVPB Last administered on 07/11/18at 10:35; Admin Dose 60 MLS/HR; Start 07/11/18 at 09:30; Stop 07/11/18 at 11:29 EMILIA FLORES NP Jul 11, 2018 11:17
[2018-07-11] MEDS ORDERED: ACETAMINOPHEN 1000MG/100ML IV 100 ML IVPB PRN (11:30)
--- NOTE | 2018-07-11 12:50 | PN ---
Date/Time of Note Date/Time of Note DATE: 07/11/18 TIME: 12:39 Assessment/Plan Lines/Catheters IV Catheter Type (from Nrs): Ramsey in Place (from Nrs): Yes Assessment/Plan Chief Complaint/Hosp Course 1. CT with emphysematous gastritis, portal venous air, thickening of pylorus and duodenal bulb, thick-walled gallbladder, mesenteric inflammation in the upper abdomen with free fluid. Repeat CT noted with improvement of emphysematous gastritis; EGD w stent placement 06/21/18; 04/06/19 status post gastrojejunostomy, resection of right ovarian mass and partial omentectomy at [facility] by . UGI noted with patent stent but continues to have intermittent vomiting. s/p Lap feeding tube, however frozen abdomen and intestines plastered to abdominal wall and initial trocar directly entered into bowel and used as feeding tube site. Contrast study did not identify leak and therefore feeding tube was placed at the site. Patient with persistent tachycardia and now hypotension taken to OR 07/10 and found significant infection, abscess, necrosis left abdominal wall s/p I&D&D. Intra- abdominally locally no acute issues besides adhesions. Patient initially better but worsening on 4 pressors and family has made her DNR. 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 Previous history of perforated duodenal ulcer and obstruction favors site of primary tumor in the upper GI tract. -Per oncology> status post chemo cycle 1; subsequent chemo cycles per oncology 3. Anemia -tx prn 4. Poor nutrition: TPN -As above 5. Sepsis with shock, multi-organ failure, worsening lactic acidosis -as above 6. Thrombocytopenia, 2nd sepsis, ? consumption, acute phase -supportive and tx prn 7. Renal insufficiency -as above -minimize nephrotoxic agents as possible Thank you Subjective 24 Hr Interval Summary s/p I&D&D left abdominal wall and local exploration of luq intra-abdominally 07/10. Patient with significant infection and necrosis of left abdominal wall s/p drainage and washout. Initially after OR got better but now on 4 pressors. Family has made her DNR. No fevers. No chills. No cough. No sz. Bruising along left side. No bowel function. Ventilated and non communicative. Exam/Review of Systems Vital Signs Vitals Vital Signs Date Temp Pulse Resp B/P (MAP) Pulse Ox O2 O2 Flow FiO2 Time Delivery Rate 07/11/18 127 28 100 30 11:45 07/11/18 130/62 11:15 (84) 07/11/18 Mechanica 11:00 l Ventilato r 07/11/18 100.0 08:00 07/08/18 8.0 15:40 Intake and Output 07/10/18 07/10/18 07/11/18 1414:59 22:59 06:59 IntakeIntake Total 3757.865 ml 5696.025 ml 4249.08 ml OutputOutput Total 180 ml 255 ml 90 ml BalanceBalance 3577.865 ml 5441.025 ml 4159.08 ml Exam Free Text/Dictation Constitutional: ventilated, frail Psych: ventilated Head: normocephalic, atraumatic Eyes: nl conjunctiva, No icteric ENMT: nl external ears & nose, nl lips & teeth, mucosa pink and moist; ETT Neck: supple, non-tender; No jvd Respiratory: normal air movement; tachypnic No congested cough, No wheezing Cardiovascular: Tachycardic Gastrointestinal: soft, tender, feeding tube, rigid since prior to surgery, LUQ wound clean; ecchymosis left lower side; missy serosang Musculoskeletal: nl extremities to inspection; No joint tenderness Extremities: normal pulses; No calf tenderness, No edema Neurological: ventilated Skin: nl turgor; No rash or lesions, No diaphoresis Lymph: nl lymph nodes Results Result Diagram: 07/11/185 07/11/18424 DARVIN BOURNE MD Jul 11, 2018 12:50
--- NOTE | 2018-07-11 14:01 | CONS ---
Assessment/Plan Assessment/Plan Hospital Course (Demo Recall) unfortunate 47 yo with metastatic gastric ca. admitted with N/V/abdo pain. s/p EGD and metal stent placed across the malignant stricture of the antrum of the stomach and also first part of the duodenum. #gastric ca -biopsy from EGD and reports from outside facilities are c/w gastric ca signet ring features. unclear why pt thought it was ovarian ca, have called Dr Mcdonald's office as well to update him s/p Cycle 1 FOLFOX + herceptin -CHEMO STARTED 06/29/18, has completed the 46 hr infusion, next tx due 07/13/18. she is too critical for any further chemo and given sepsis she may not fully recover and agree with transition to palliative/comfort care. DNR -Dr Suarez also informed me she has motility issues due to tumor infiltration of stomach and stent will not allow her to eat. have communicated with Dr Calle if maybe a j tube can help. she had surgery but course was complicated by sepsis and yesterday she underwent incision and drainage of abdominal wall abscess. I had been clear with the patient that she has stage IV disease and metastatic gastric ca has a poor prognosis and low 5 year overall survival rate, stage Iv usually have at best 18 mos overall survival. given her young age we have been aggressive but at the outset her disease was very advanced at diagnosis -appropriate for palliative care DNR Thank you Dr Lee and Dr Landeros for allowing us to participate in the care of this pleasant pt Consultation Date/Type/Reason Admit Date/Time Jun 10, 2018 at 18:42 Initial Consult Date 06/11/18 Requesting Provider: ELMER LEE MD Date/Time of Note DATE: 07/11/18 TIME: 12:19 24 HR Interval Summary Free Text/Dictation very complicated post op course in ICU septic on multiple pressors Exam/Review of Systems Exam Vitals Vital Signs Date Temp Pulse Resp B/P (MAP) Pulse Ox O2 O2 Flow FiO2 Time Delivery Rate 07/11/18 127 28 100 30 11:45 07/11/18 130/62 11:15 (84) 07/11/18 Mechanica 11:00 l Ventilato r 07/11/18 100.0 08:00 07/08/18 8.0 15:40 Intake and Output 07/10/18 07/10/1807/11/19 1515:00 23:00 07:00 IntakeIntake Total 4077.365 ml 5410.115 ml 4222.89 ml OutputOutput Total 180 ml 270 ml 85 ml BalanceBalance 3897.365 ml 5140.115 ml 4137.89 ml Constitutional: frail (intubated) Results Result Diagram: 07/11/18 0425 07/11/18 0425 Results 24hrs Laboratory Tests Test 07/10/18 15:00 07/10/18 16:32 07/10/18 18:25 07/10/18 19:31 White Blood 0.4 #L 0.4 L Count Red Blood Count 3.56 L 3.85 L Hemoglobin 10.2 #L 11.2 L Hematocrit 30.7 L 32.4 L Mean 86.2 84.2 Corpuscular Volume Mean 28.7 L 29.1 Corpuscular Hemoglobin Mean 33.2 34.6 Corpuscular Hemoglobin Conc ent Red Cell 14.7 H 14.6 H Distribution Width Platelet Count 115 #L 100 L Mean Platelet 9.8 10.0 Volume Immature 0.000 L 0.000 L Granulocytes % Neutrophils % Segmented 2 L 16 L Neutrophils % (Manual) Band 14 H 4 Neutrophils % (Manual) Lymphocytes % Lymphocytes % 75 H 61 H (Manual) Reactive 2 H 3 H Lymphocytes % (Manual) Monocytes % Eosinophils % Eosinophils % 4 7 (Manual) Basophils % Plasma Cells % 4 (manual) Nucleated Red 100 H 92 H Blood Cells % Immature 0.000 0.000 Granulocytes # Neutrophils # Neutrophils # 0.0 L 0.1 L (Manual) Band 0.0 0.0 Neutrophils # Lymphocytes 0.3 L 0.2 L (Manual) Lymphocytes # Reactive 0.0 0.0 Lymphocytes # Monocytes # Eosinophils # Basophils # Plasma Cells # 0.0 (manual) Nucleated Red Blood Cells # Pathologist YES Review (Hematol ogy) Platelet DECREASED DECREASED Estimate Giant Platelets 20 H 11 H Polychromasia 2+ 3+ Poikilocytosis 2+ 2+ Anisocytosis 1+ 2+ Microcytosis 1+ 2+ Prothrombin 21.3 H Time Prothrombin 1.7 Time Ratio INR 1.84 International Normalized Rati o Activated 35.7 H Partial Thrombo plast Time Blood Gas Blood arterial Blood Specimen arterial Source Arterial Blood 07/10/2018 3:08: 07/10/2018 7:30 Date Drawn 55 PM :51 PM Arterial Blood 7.056 *L 7.256 *L pH (Temp corrected ) Arterial Blood 30.3 L 20.7 L pCO2 (Temp correct) Arterial Blood 506.5 H 175.3 H pO2 (Temp corrected ) Arterial Blood 8.3 *L 9.0 *L HCO3 Arterial Blood -20.8 L -16.2 L Base Excess Arterial Blood 99.2 H 98.4 H Oxygen Saturati on Dionte Test N/A N/A Arterial Blood A-Line A-Line Gas Puncture Site Arterial 0.3 0.2 Blood Carboxyhe moglobin Arterial Blood 0 0.1 Methemoglobin Blood Gas A-a 176.2 H 86.1 H O2 Differential Oxyhemoglobin 98.9 98.1 Percent Blood Gas 37.0 37.0 Temperature Blood Gas VENT - AC VENT - AC Modality FiO2 100.0 40.0 Blood Gas Cierra GUTIERREZ MD Critical Value Read Back Blood Gas Nicanor CARMICHAEL Notified Whom Blood Gas 07/10/2018 3:19: 07/10/2018 7:48 Notified Time 17 PM :41 PM Sodium Level 138 140 Potassium Level 4.9 4.1 Chloride Level 112 H 113 H Carbon Dioxide 8 *L 12 L Level Anion Gap 18 H 15 H Blood Urea 42 H 44 H Nitrogen Creatinine 1.52 H 1.30 H Est Glomerular 36 L 44 L Filtrat Rate mL/min Glucose Level 168 156 Calcium Level 7.2 L 7.4 L Total Bilirubin 0.2 0.4 Direct 0.00 0.00 Bilirubin Indirect 0.2 0.4 Bilirubin Aspartate Amino 22 29 Transf (AST/SGO T) Alanine 21 22 Aminotransferas e (ALT/SGPT) Alkaline 77 72 Phosphatase Total Protein 5.2 #L 5.2 L Albumin 2.3 L 2.4 L Globulin 2.90 2.80 Albumin/Globuli 0.79 0.85 n Ratio Monocytes % 2 (Manual) Basophils % 3 H (Manual) Myelocytes % 2 H (Manual) Promyelocytes % 1 H (Manual) Monocytes # 0.0 L (Manual) Basophils # 0.0 (Manual) Myelocytes # 0.0 Promyelocytes # 0.0 Lactic Acid 6.6 *H 9.8 *H Level Blood Gas 14.0 Respiration Rate Blood Gas 24 Actual Respiration Rat e Blood Gas Tidal 500.0 Volume Blood Gas Low 5.0 PEEP Setting Test 07/10/18 21:35 07/10/18 22:49 07/10/18 23:29 07/11/18 00:49 Bedside Glucose 164 Hemoglobin 9.7 L Hematocrit 28.4 L Blood Gas Blood Specimen arterial Source Arterial Blood 07/10/2018 11:3 Date Drawn 0:05 PM Arterial Blood 7.234 *L pH (Temp corrected ) Arterial Blood 16.2 L pCO2 (Temp correct) Arterial Blood 508.2 H pO2 (Temp corrected ) Arterial Blood 6.7 *L HCO3 Arterial Blood -18.7 L Base Excess Arterial Blood 98.9 H Oxygen Saturati on Dionte Test N/A Arterial Blood A-Line Gas Puncture Site Arterial 0.2 Blood Carboxyhe moglobin Arterial Blood 0.2 Methemoglobin Blood Gas A-a 188.6 H O2 Differential Oxyhemoglobin 98.5 Percent Blood Gas 37.0 Temperature Blood Gas 14.0 Respiration Rate Blood Gas 24 Actual Respiration Rat e Blood Gas VENT - AC Modality FiO2 100.0 Blood Gas Tidal 550.0 Volume Blood Gas Low 5.0 PEEP Setting Blood Gas Cierra MCGRAW MD Critical Value Read Back Blood Gas MA Notified Whom Blood Gas 07/10/2018 11:4 Notified Time 5:21 PM Lactic Acid 17.0 *H Level Test 07/11/18 04:25 07/11/18 07:00 07/11/18 08:58 07/11/18 09:28 White Blood 0.5 #L Count Red Blood Count 3.34 L Hemoglobin 9.7 L Hematocrit 28.8 L Mean 86.2 Corpuscular Volume Mean 29.0 Corpuscular Hemoglobin Mean 33.7 Corpuscular Hemoglobin Conc ent Red Cell 15.5 H Distribution Width Platelet Count 53 #L Mean Platelet 10.4 Volume Immature 4.000 H Granulocytes % Neutrophils % Segmented 3 L Neutrophils % (Manual) Band 1 Neutrophils % (Manual) Lymphocytes % Lymphocytes % 95 H (Manual) Monocytes % Eosinophils % Eosinophils % 1 (Manual) Basophils % Nucleated Red 448 H Blood Cells % Immature 0.020 Granulocytes # Neutrophils # Neutrophils # 0.0 L (Manual) Band 0.0 Neutrophils # Lymphocytes 0.4 L (Manual) Lymphocytes # Monocytes # Eosinophils # Basophils # Nucleated Red Blood Cells # Platelet SIG DECREASED Estimate Giant Platelets 2 H Polychromasia 2+ Hypochromasia 1+ Poikilocytosis 3+ Anisocytosis 1+ Microcytosis 1+ Spherocytes 1+ Sodium Level 143 Potassium Level 4.3 Chloride Level 114 H Carbon Dioxide 6 #*L Level Anion Gap 23 #H Blood Urea 41 H Nitrogen Creatinine 1.31 H Est Glomerular 43 L Filtrat Rate mL/min Glucose Level 151 Lactic Acid 17.1 *H 18.2 *H Level Calcium Level 6.0 L Phosphorus 5.1 #H Level Magnesium Level 2.1 Total Bilirubin 0.5 Direct 0.10 Bilirubin Indirect 0.4 Bilirubin Aspartate Amino 274 H Transf (AST/SGO T) Alanine 181 H Aminotransferas e (ALT/SGPT) Alkaline 53 Phosphatase Total Protein 4.5 L Albumin 2.0 L Globulin 2.50 Albumin/Globuli 0.80 n Ratio Blood Gas Blood Specimen arterial Source Arterial Blood 07/11/2018 8:18 Date Drawn :14 AM Arterial Blood 7.173 *L pH (Temp corrected ) Arterial Blood 19.4 L pCO2 (Temp correct) Arterial Blood 114.2 H pO2 (Temp corrected ) Arterial Blood 7.0 *L HCO3 Arterial Blood -19.6 L Base Excess Arterial Blood 96.9 Oxygen Saturati on Dionte Test N/A Arterial Blood A-Line Gas Puncture Site Arterial 0.3 Blood Carboxyhe moglobin Arterial Blood 0.2 Methemoglobin Blood Gas A-a 76.9 H O2 Differential Oxyhemoglobin 96.4 Percent Blood Gas 37.0 Temperature Blood Gas 14.0 Respiration Rate Blood Gas 26 Actual Respiration Rat e Blood Gas VENT - AC Modality FiO2 30.0 Blood Gas Tidal 550.0 Volume Blood Gas Low 5.0 PEEP Setting Blood Gas [id number] Critical Value RN Read Back Blood Gas TM Notified Whom Blood Gas 07/11/2018 8:26 Notified Time :51 AM Bedside Glucose 213 Medications Medication Current Medications IV Flush (NS 3 ml) 3 ml PER PROTOCOL IV ; Start 06/10/18 at 18:00 Lorazepam (Ativan) 1 mg Q4H PRN IV anxiety Last administered on 06/12/18at 15:28; Admin Dose 1 MG; Start 06/11/18 at 21:30 IV Flush (NS 10 ml) 10 ml PRN PRN IV IV PROTOCOL; Start 06/16/18 at 17:00 Methylnaltrexone [place] (Relistor) 12 mg Q48H SC ; Start 06/17/18 at 08:30 Phenol (Chloraseptic Throat [place]) 2 spray Q2H PRN MT SORE THROAT Last administered on 06/17/18 21:23; Admin Dose 2 SPRAY; Start 06/17/18 at 11:30 Morphine Sulfate (morphine) 2 mg Q4H PRN IV SEVERE PAIN LEVEL 7-10 Last administered on 07/10/18 17:11; Admin Dose 2 MG; Start 06/21/18 at 21:00 Bisacodyl (Dulcolax Supp) 10 mg DAILY PRN [place] CONSTIPATION Last administered on 07/01/18 10:53; Admin Dose 10 MG; Start 06/25/18 at 12:00 Total Parenteral Nutrition 1,000 ml @ 60 mls/hr [id number] IV Last administered on 07/10/18 22:13; Admin Dose 60 MLS/HR; Start 06/26/18 at 20:00 Diagnostic Test (Pha) (Accu-Chek) 1 ea Q12 XX Last administered on 07/11/18 09:31; Admin Dose 1 EA; Start 06/27/18 at 21:00 Diphenhydramine HCl (Benadryl) 25 mg Q6H PRN IV ALLERGIC REACTION; Start 06/29/18 at 11:00 Dexamethasone 20 mg/Dextrose 55 ml @ 252 mls/hr Q6H PRN IVPB ALLERGIC REACTION; Start 06/29/18 at 11:00 Prochlorperazine (Compazine Inj) 5 mg Q4H PRN IV NAUSEA AND/OR VOMITING Last administered on 07/10/18 11:57; Admin Dose 5 MG; Start 07/04/18 at 11:00 Ondansetron HCl 8 mg/Sodium Chloride 54 ml @ 216 mls/hr Q6H PRN IV NAUSEA AN D/OR VOMITING Last administered on 07/05/18 23:18; Admin Dose 216 MLS/HR; Start 07/04/18 at 11:30 Famotidine (Pepcid Iv) 20 mg BID IV Last administered on 07/11/18 09:47; Admin Dose 20 MG; Start 07/05/18 at 11:00 Vancomycin HCl (Vanco Iv Per Pharmacy) VANCOMYCIN PER PHARMACY PER PROTOCOL XX ; Start 07/10/18 at 04:00 Metronidazole 100 ml @ 100 mls/hr Q8 IVPB Last administered on 07/11/18at 05:57; Admin Dose 100 MLS/HR; Start 07/10/18 at 06:00 Vancomycin/Sodium Chloride 250 ml @ 125 mls/hr Q12H IVPB Last administered on 07/11/18at 03:58; Admin Dose 125 MLS/HR; Start 07/10/18 at 16:00 Vasopressin 60 unit/Dextrose 60 ml @ 1.2 mls/hr Q12H IV Last administered on 07/10/18at 11:17; Admin Dose 1.2 MLS/HR; Start 07/10/18 at 09:30 Phenylephrine HCl 80 mg/Dextrose 250 ml @ 18.75 mls/ hr TITRATE IV Last administered on 07/11/18at 08:52; Admin Dose 56.25 MLS/HR; Start 07/10/18 at 10:30 Miscellaneous Information (*Rx Drug Level Order Reminder*) VANCO TROUGH @ 1,500 ONCE ONCE XX ; Start 07/11/18 at 15:00; Stop 07/11/18 at 15:01 Meropenem/Sodium Chloride 50 ml @ 100 mls/hr Q12 IVPB Last administered on 07/11/18at 09:36; Admin Dose 100 MLS/HR; Start 07/10/18 at 18:00 Caspofungin 50 mg/ Sodium Chloride 250 ml @ 250 mls/hr Q24H IVPB ; Start 07/11/18 at 17:00 Midazolam HCl 50 ml @ 1 mls/hr TITRATE IV Last administered on 07/11/18at 10:41; Admin Dose 9 MLS/HR; Start 07/10/18 at 17:00 Fentanyl 100 ml @ 2.5 mls/hr TITRATE IV ; Start 07/10/18 at 17:00 Norepinephrine 32 mg/Sodium Chloride 250 ml @ 0.47 mls/hr TITRATE IV Last administered on 07/10/18at 21:59; Admin Dose 12.19 MLS/HR; Start 07/10/18 at 19:30 Sodium Bicarbonate 150 meq/Dextrose 1,150 ml @ 115 mls/hr Q10H IV Last adm inistered on 07/11/18at 00:57; Admin Dose 75 MLS/HR; Start 07/11/18 at 00:00 Sodium Hypochlorite (Dakin'S (Dilute )) 1 applic DAILY IRR Last administered on 07/11/18at 09:31; Admin Dose 1 APPLIC; Start 07/11/18 at 09:00 Epinephrine 4 mg/ Dextrose 250 ml @ 0 mls/hr TITRATE IV Last administered on 07/11/18at 08:37; Admin Dose 3.375 MLS/HR; Start 07/11/18 at 08:30 Acetaminophen 100 ml @ 400 mls/hr Q6H PRN IVPB fever/pain; Start 07/11/18 at 11:30; Stop 07/12/18 at 11:29 INCK VARELA Jul 11, 2018 12:29
[2018-07-11] MEDS: NORepinephrine 32 MG in SOD CHLORIDE 0.9% 218 ML IV SCH (14:09)
[2018-07-11] MEDS: TPN 1,000 ML IV SCH (14:38)
[2018-07-11] MEDS: CASPOFUNGIN 50 MG in SOD CHLORIDE 0.9% 250 ML IVPB SCH (16:04)
[2018-07-11] MEDS ORDERED: INSULIN HUMAN REGULAR 100 UNIT in SOD CHLORIDE 0.9% 99 ML IV SCH (17:00)
[2018-07-11] MEDS ORDERED: ACCU-CHEK XX SCH (17:00)
[2018-07-11] MEDS ORDERED: DEXTROSE 50% 50 ML SYRINGE IV PRN ×4 (17:00→21:30)
[2018-07-11] MEDS ORDERED: [UNRECOGNIZED DRUG - OTHER] XX SCH (20:30)
[2018-07-11] MEDS: VASOPRESSIN 60 UNIT in SOD CHLORIDE 0.9% 57 ML IV SCH (20:50)
[2018-07-11] MEDS ORDERED: DEXAMETHASONE 4 MG/ML 20 MG in SOD CHLORIDE 0.9% 50 ML IVPB PRN (21:00)
[2018-07-11] MEDS ORDERED: SODIUM BICARBONATE (IV ADD) 150 MEQ in SOD CHLORIDE 0.9% 1,000 ML IV SCH (21:30)
[2018-07-11] MEDS ORDERED: GLUCOSE GEL 15 GRAM TUBE BUCCAL PRN (21:30)
[2018-07-11] MEDS ORDERED: GLUCOSE GEL 15 GRAM TUBE PO PRN ×2 (21:30)
[2018-07-11] MEDS ORDERED: GLUCAGON 1 MG INJ IM PRN (21:30)
[2018-07-12] VITALS (101 sets, daily range): BP systolic 78–153; BP diastolic 42–87; PULSE 96–135; RESP 16–25
[2018-07-12] MEDS ORDERED: INSULIN ASPART [NOVOLOG] 3 ML PEN SC SCH
[2018-07-12] MEDS: Insulin NOVOLOG SS MODERATE Algorithm(NPO/TPN/ENTERAL FEEDS) SC SCH ×4 (00:38→17:39)
[2018-07-12] MEDS: PHENYLephrine 80 MG in SOD CHLORIDE 0.9% 242 ML IV SCH ×3 (00:45→22:10)
[2018-07-12] MEDS: MIDAZOLAM (DRIP) 50 mg/50 mL 50 ML IV SCH ×2 (03:52→17:28)
[2018-07-12] MEDS: VASOPRESSIN 60 UNIT in SOD CHLORIDE 0.9% 57 ML IV SCH ×3 (07:30→17:53)
[2018-07-12] MEDS: SODIUM BICARBONATE (IV ADD) 150 MEQ in SOD CHLORIDE 0.9% 1,000 ML IV SCH ×2 (07:44→18:51)
[2018-07-12] MEDS ORDERED: VANCOMYCIN 500 MG (PMX) 100 ML IVPB SCH (08:00)
[2018-07-12] MEDS: EPINEPHrine 4 MG in SOD CHLORIDE 0.9% 246 ML IV SCH ×2 (08:04→14:00)
--- NOTE | 2018-07-12 08:07 | PN ---
DATE: 07/12/2018 SUBJECTIVE: The patient remains critically ill on 4 pressors. Urinary output has been marginal. Th e patient is on full ventilatory support. The patient is currently DNR. No other events noted. OBJECTIVE: VITAL SIGNS: Blood pressure is 104/55, respirations 18, pulse 117, temperature is 100. HEENT: Head is normocephalic. NECK: Supple. HEART: Regular rate. LUNGS: Show diminished breath sounds at the base. ABDOMEN: Soft. Positive pigtail drain noted. EXTREMITIES: Negative for clubbing, cyanosis, no edema. DERMATOLOGIC: No rashes. MUSCULOSKELETAL: No joint effusion. NEUROLOGIC: No change in exam. MEDICATIONS: Reviewed. LABORATORY DATA: From 07/12/18 is pending. Laboratory data from 07/11/2018 was reviewed. CBC from 07/12/2018 shows white count 0.5, hemoglobin 10.3, platelet count is 20. Toxicology was reviewed. A BG was reviewed. Blood cultures have been reviewed, positive for gram-negative rods. ASSESSMENT AND PLAN: 1. Nonoliguric acute kidney injury with previously normal baseline creatinine. Etiology of acute ki dney injury is secondary to acute tubular necrosis due to sepsis, shock. The patient is currently in injury phase of acute tubular necrosis. Urinary output has been adequate. At this point, we will c ontinue current medical management. Continue pressor support to maintain MAP of 65. Continue IV flu ids, antibiotic therapy. We will monitor closely. The patient is not a candidate for hemodialysis a s she is hemodynamically unstable. 2. Metabolic acidemia secondary to lactic acidosis. The patient is on bicarbonate drip. We will co ntinue. Follow up ABG. 3. Pancytopenia, anemia. Etiology is likely from sepsis, recent chemotherapy. Continue to monitor closely. Follow up with hematology. 4. Mineral bone disorder, monitor calcium and phosphorus levels. 5. Ventilatory dependent respiratory failure. Vent settings and ABG was reviewed. Continue to marianna tor. 6. Acute encephalopathy, etiology is toxic metabolic. Continue to monitor. 7. Intraabdominal abscess. The patient is status post surgical debridement. Continue medical manag ement. Follow up with general surgery. 8. Tachyarrhythmia. 9. Metastatic gastric carcinoma status post chemotherapy. 10. Nutrition. The patient remains on TPN. 11. Peptic ulcer disease. Continue proton pump inhibitor. Please note I spent over 30 minutes of critical care time with this patient. The patient has overall very poor prognosis. Dictated By: BRAYDEN RED DO NR/NTS Conf#: [id number] DID#: [id number] CC: DARVIN BOURNE MD; ALYX HENDRIX MD; ELMER CAVAZOS MD;*End*
[2018-07-12] MEDS: SODIUM HYPOCHLORITE (1/40) 1 APPLIC BTL IRR SCH (08:25)
[2018-07-12] MEDS: FAMOTIDINE 20 MG INJ IV SCH ×2 (08:25→20:51)
[2018-07-12] MEDS: MEROPENEM 500MG/50 ML (PMX) 50 ML IVPB SCH ×2 (08:26→20:51)
--- NOTE | 2018-07-12 08:34 | CONS ---
Assessment/Plan Assessment/Plan Assessment/Plan (Daily) Patient remains in the intensive care unit now she is on 4 pressors FiO2 remains 30% on 5 of PEEP. Patient is overbreathing the ventilator slightly. Platelet count remains low at 20,000 white blood cell count 0.5. BUN 54 creatinine 1.74, alkaline phosphatase 1951. Not spoken to family members in the last 2 days. Reviewed notes from surgery that is post I&D of the abdominal wall local explor ation of the upper quadrant intra-abdominal 07/10. Significant infection and necrosis left abdominal wall status post draining patient still DNR. Bilateral ovarian mass, infiltrating neoplasm diffuse of stomach possibly more consistent with gastric cancer, perforated DU. Septic shock On full support including 4 pressors Pancytopenia Renal insufficiency Prognosis is extremely grave We will call family We will discuss with all consultants prior to discussing comfort care with family members at this time especially hospitalist. Consultation Date/Type/Reason Admit Date/Time Jun 10, 2018 at 18:42 Initial Consult Date 06/11/18 Requesting Provider: ELMER CAVAZOS MD Date/Time of Note DATE: 07/12/18 TIME: 08:26 Exam/Review of Systems Exam Vitals Vital Signs Date Temp Pulse Resp B/P (MAP) Pulse Ox O2 O2 Flow FiO2 Time Delivery Rate 07/12/18 117 18 104/55 96 [place] 06:45 (71) l Ventilato r 07/12/18 100.0 06:00 07/12/18 30 05:30 07/08/18 8.0 15:40 Intake and Output 07/11/18 07/11/18 07/12/18 1515:00 23:00 07:00 IntakeIntake Total 4594.25 ml 2643.22 ml 1890.63 ml OutputOutput Total 680 ml 500 ml 1160 ml BalanceBalance 3914.25 ml 2143.22 ml 730.63 ml Constitutional: non-verbal, distress, frail Psych: other (Dated) ENMT: nl external ears & nose, nl lips & teeth, nl nasal mucosa & septum Respiratory: clear to auscultation, normal air movement; No congested cough, No crackles/rales, No diminished breath sounds, No intercostal retraction, No labored breathing, No respirations, No tactile fremitus, No wheezing, No other Gastrointestinal: other (Bowel sounds distention all 4 quadrants) Results Result Diagram: 07/12/18 0500 07/12/18 0703 Results 24hrs Laboratory Tests Test 07/11/18 08:58 07/11/18 09:28 07/11/18 12:26 07/11/18 14:38 Lactic Acid 18.2 *H Level Bedside Glucose 213 Fibrinogen 407.0 D-Dimer > 10512.00 H Vancomycin Level 18.4 Trough Test 07/12/18 00:32 07/12/18 04:00 07/12/18 05:00 07/12/18 05:09 Bedside Glucose 253 H Lactic Acid 13.7 *H Level White Blood 0.5 L Count Red Blood Count 3.62 L Hemoglobin 10.3 L Hematocrit 29.2 L Mean Corpuscular 80.7 L Volume Mean Corpuscular 28.5 L Hemoglobin Mean Corpuscular 35.3 Hemoglobin Verito nt Red Cell 15.9 H Distribution Width Platelet Count 20 #*L Mean Platelet 9.6 Volume Immature 0.000 L Granulocytes % Neutrophils % Lymphocytes % Lymphocytes % 64 H (Manual) Reactive 28 H Lymphocytes % (Manual) Monocytes % Monocytes % 8 (Manual) Eosinophils % Basophils % Nucleated Red 544 H Blood Cells % Immature 0.000 Granulocytes # Neutrophils # Lymphocytes 0.3 L (Manual) Lymphocytes # Reactive 0.1 H Lymphocytes # Monocytes # Monocytes # 0.0 L (Manual) Eosinophils # Basophils # Nucleated Red Blood Cells # White Cell @See below Morphology Comment Platelet SIG DECREASED Estimate Giant Platelets 4 H Polychromasia 2+ Poikilocytosis 2+ Anisocytosis 1+ Target Cells 1+ Ovalocytes 1+ Red Cell @See below Morphology Comment Lab Scanned BLOOD TRANSFUSI Report ON Test 07/12/18 05:36 07/12/18 07:03 Bedside Glucose 127 Sodium Level 147 H Potassium Level 3.1 L Chloride Level 105 Carbon Dioxide 22 # Level Anion Gap 20 H Blood Urea 54 H Nitrogen Creatinine 1.74 H Est Glomerular 31 L Filtrat Rate mL/min Glucose Level 128 Calcium Level 5.6 *L Phosphorus Level 3.3 Magnesium Level 1.6 L Total Bilirubin 0.5 Direct Bilirubin 0.10 Indirect 0.4 Bilirubin Aspartate Amino Pending Transf (AST/SGOT ) Alanine 1951 H Aminotransferase (ALT/SGPT) Alkaline 89 # Phosphatase Total Protein 4.2 L Albumin 2.0 L Medications Medication Current Medications IV Flush (NS 3 ml) 3 ml PER PROTOCOL IV ; Start 06/10/18 at 18:00 Lorazepam (Ativan) 1 mg Q4H PRN IV anxiety Last administered on 06/12/18 15:28; Admin Dose 1 MG; Start 06/11/18 at 21:30 IV Flush (NS 10 ml) 10 ml PRN PRN IV IV PROTOCOL; Start 06/16/18 at 17:00 Methylnaltrexone [place] (Relistor) 12 mg Q48H SC ; Start 06/17/18 at 08:30 Phenol (Chloraseptic Throat [place]) 2 spray Q2H PRN [place] SORE THROAT Last administered on 06/17/18 21:23; Admin Dose 2 SPRAY; Start 06/17/18 at 11:30 Morphine Sulfate (morphine) 2 mg Q4H PRN IV SEVERE PAIN LEVEL 7-10 Last administered on 07/10/18 17:11; Admin Dose 2 MG; Start 06/21/18 at 21:00 Bisacodyl (Dulcolax Supp) 10 mg DAILY PRN [place] CONSTIPATION Last administered on 07/01/18 10:53; Admin Dose 10 MG; Start 06/25/18 at 12:00 Total Parenteral Nutrition 1,000 ml @ 60 mls/hr [id number] IV Last administered on 07/11/18 14:38; Admin Dose 60 MLS/HR; Start 06/26/18 at 20:00 Diphenhydramine HCl (Benadryl) 25 mg Q6H PRN IV ALLERGIC REACTION; Start 06/29/18 at 11:00 Prochlorperazine (Compazine Inj) 5 mg Q4H PRN IV NAUSEA AND/OR VOMITING Last administered on 07/10/18 11:57; Admin Dose 5 MG; Start 07/04/18 at 11:00 Ondansetron HCl 8 mg/Sodium Chloride 54 ml @ 216 mls/hr Q6H PRN IV NAUSEA AND/OR VOMITING Last administered on 07/05/18 23:18; Admin Dose 216 MLS/HR; Start 07/04/18 at 11:30 Famotidine (Pepcid Iv) 20 mg BID IV Last administered on 07/11/18 21:10; Admin Dose 20 MG; Start 07/05/18 at 11:00 Vancomycin HCl (Vanco Iv Per Pharmacy) VANCOMYCIN PER PHARMACY PER PROTOCOL XX ; Start 07/10/18 at 04:00 Meropenem/Sodium Chloride 50 ml @ 100 mls/hr Q12 IVPB Last administered on 07/11/18at 21:10; Admin Dose 100 MLS/HR; Start 07/10/18 at 18:00 Caspofungin 50 mg/ Sodium Chloride 250 ml @ 250 mls/hr Q24H IVPB Last adminis tered on 07/11/18at 16:04; Admin Dose 250 MLS/HR; Start 07/11/18 at 17:00 Midazolam HCl 50 ml @ 1 mls/hr TITRATE IV Last administered on 07/12/18at 03:52; Admin Dose 10 MLS/HR; Start 07/10/18 at 17:00 Fentanyl 100 ml @ 2.5 mls/hr TITRATE IV ; Start 07/10/18 at 17:00 Norepinephrine 32 mg/Sodium Chloride 250 ml @ 0.47 mls/hr TITRATE IV Last administered on 07/11/18at 14:09; Admin Dose 11.72 MLS/HR; Start 07/10/18 at 19:30 Sodium Hypochlorite (Dakin'S (Dilute )) 1 applic DAILY IRR Last admini stered on 07/11/18at 09:31; Admin Dose 1 APPLIC; Start 07/11/18 at 09:00 Acetaminophen 100 ml @ 400 mls/hr Q6H PRN IVPB fever/pain Last administered on 07/11/18at 12:17; Admin Dose 400 MLS/HR; Start 07/11/18 at 11:30; Stop 07/12/18 at 11:29 Vancomycin HCl 100 ml @ 100 mls/hr Q12H IVPB ; Start 07/12/18 at 08:00 Phenylephrine HCl 80 mg/Sodium Chloride 250 ml @ 18.75 mls/ hr TITRATE IV Last administered on 07/12/18at 00:45; Admin Dose 18.75 MLS/HR; Start 07/11/18 at 21:00 Miscellaneous Information (*Order Clarification Bulletin) please mix all gtts in nor... Q72H XX Last administered on 07/11/18at 20:44; Admin Dose 1 EA; Start 07/11/18 at 20:30 Dexamethasone 20 mg/Sodium Chloride 55 ml @ 252 mls/hr Q6H PRN IVPB ALLERGIC REACTION; Start 07/11/18 at 21:00 Epinephrine 4 mg/ Sodium Chloride 250 ml @ 0 mls/hr TITRATE IV Last administered on 07/12/18at 08:04; Admin Dose 15 MLS/HR; Start 07/11/18 at 21:00 Vasopressin 60 unit/Sodium Chloride 60 ml @ 1.2 mls/hr Q12H IV ; Start 07/11/18 at 21:00 Insulin Aspart (Novolog Insulin Pen) (Adult SC Insulin - Moder... Q6 SC Last administered on 07/12/18at 00:38; Admin Dose 6 UNIT; Start 07/12/18 at 00:00 Miscellaneous Information 1 ea NOTE XX ; Start 07/11/18 at 21:30 Glucose (Glutose) 15 gm Q15M PRN PO DECREASED GLUCOSE; Start 07/11/18 at 21:30 Glucose (Glutose) 22.5 gm Q15M PRN PO DECREASED GLUCOSE; Start 07/11/18 at 21:30 Dextrose (D50w Syringe) 25 ml Q15M PRN IV DECREASED GLUCOSE; Start 07/11/18 at 21:30 Dextrose (D50w Syringe) 50 ml Q15M PRN IV DECREASED GLUCOSE; Start 07/11/18 at 21:30 Glucagon (Glucagen) 1 mg Q15M PRN IM DECREASED GLUCOSE; Start 07/11/18 at 21:30 Glucose (Glutose) 15 gm Q15M PRN BUCCAL DECREASED GLUCOSE; Start 07/11/18 at 21:30 Miscellaneous Information (*Order Clarification Bulletin) MEDICATION REQUIRES CLARIFICATI... Q8H XX Last administered on 07/12/18at 05:41; Admin Dose 1 EA; Start 07/11/18 at 22:30; Stop 07/13/18 at 22:29 Sodium Bicarbonate 150 meq/Sodium Chloride 1,150 ml @ 115 mls/hr Q10H IV Last administered on 07/12/18at 07:44; Admin Dose 115 MLS/HR; Start 07/12/18 at 07:30 ALFONSO WALTERS Jul 12, 2018 08:34
--- NOTE | 2018-07-12 08:39 | CONS ---
Assessment/Plan Assessment/Plan Assessment/Plan (Daily) Voiced a phone call to patient's daughter Crystal at [phone] no answer will continue to try and contact us to update family members of her mother's continuing critical condition Consultation Date/Type/Reason Admit Date/Time Jun 10, 2018 at 18:42 Initial Consult Date 06/11/18 Requesting Provider: ELMER CAVAZOS MD Date/Time of Note DATE: 07/12/18 TIME: 08:37 Exam/Review of Systems Exam Vitals Vital Signs Date Temp Pulse Resp B/P (MAP) Pulse Ox O2 O2 Flow FiO2 Time Delivery Rate 07/12/18 117 18 104/55 96 [place] 06:45 (71) l Ventilato r 07/12/18 100.0 06:00 07/12/18 30 05:30 07/08/18 8.0 15:40 Intake and Output 07/11/18 07/11/18 07/12/18 1515:00 23:00 07:00 IntakeIntake Total 4594.25 ml 2643.22 ml 1890.63 ml OutputOutput Total 680 ml 500 ml 1160 ml BalanceBalance 3914.25 ml 2143.22 ml 730.63 ml Results Result Diagram: 07/12/18 0500 07/12/18 0703 Results 24hrs Laboratory Tests Test 07/11/18 08:58 07/11/18 09:28 07/11/18 12:26 07/11/18 14:38 Lactic Acid 18.2 *H Level Bedside Glucose 213 Fibrinogen 407.0 D-Dimer > 33766.00 H Vancomycin Level 18.4 Trough Test 07/12/18 00:32 07/12/18 04:00 07/12/18 05:00 07/12/18 05:09 Bedside Glucose 253 H Lactic Acid 13.7 *H Level White Blood 0.5 L Count Red Blood Count 3.62 L Hemoglobin 10.3 L Hematocrit 29.2 L Mean Corpuscular 80.7 L Volume Mean Corpuscular 28.5 L Hemoglobin Mean Corpuscular 35.3 Hemoglobin Verito nt Red Cell 15.9 H Distribution Width Platelet Count 20 #*L Mean Platelet 9.6 Volume Immature 0.000 L Granulocytes % Neutrophils % Lymphocytes % Lymphocytes % 64 H (Manual) Reactive 28 H Lymphocytes % (Manual) Monocytes % Monocytes % 8 (Manual) Eosinophils % Basophils % Nucleated Red 544 H Blood Cells % Immature 0.000 Granulocytes # Neutrophils # Lymphocytes 0.3 L (Manual) Lymphocytes # Reactive 0.1 H Lymphocytes # Monocytes # Monocytes # 0.0 L (Manual) Eosinophils # Basophils # Nucleated Red Blood Cells # White Cell @See below Morphology Comment Platelet SIG DECREASED Estimate Giant Platelets 4 H Polychromasia 2+ Poikilocytosis 2+ Anisocytosis 1+ Target Cells 1+ Ovalocytes 1+ Red Cell @See below Morphology Comment Lab Scanned BLOOD TRANSFUSI Report ON Test 07/12/18 05:36 07/12/18 07:03 Bedside Glucose 127 Sodium Level 147 H Potassium Level 3.1 L Chloride Level 105 Carbon Dioxide 22 # Level Anion Gap 20 H Blood Urea 54 H Nitrogen Creatinine 1.74 H Est Glomerular 31 L Filtrat Rate mL/min Glucose Level 128 Calcium Level 5.6 *L Phosphorus Level 3.3 Magnesium Level 1.6 L Total Bilirubin 0.5 Direct Bilirubin 0.10 Indirect 0.4 Bilirubin Aspartate Amino 2170 H Transf (AST/SGOT ) Alanine 1951 H Aminotransferase (ALT/SGPT) Alkaline 89 # Phosphatase Total Protein 4.2 L Albumin 2.0 L Medications Medication Current Medications IV Flush (NS 3 ml) 3 ml PER PROTOCOL IV ; Start 06/10/18 at 18:00 Lorazepam (Ativan) 1 mg Q4H PRN IV anxiety Last administered on 06/12/18at 15:28; Admin Dose 1 MG; Start 06/11/18 at 21:30 IV Flush (NS 10 ml) 10 ml PRN PRN IV IV PROTOCOL; Start 06/16/18 at 17:00 Methylnaltrexone [place] (Relistor) 12 mg Q48H SC ; Start 06/17/18 at 08:30 Phenol (Chloraseptic Throat [place]) 2 spray Q2H PRN MT SORE THROAT Last administered on 06/17/18at 21:23; Admin Dose 2 SPRAY; Start 06/17/18 at 11:30 Morphine Sulfate (morphine) 2 mg Q4H PRN IV SEVERE PAIN LEVEL 7-10 Last administered on 07/10/18at 17:11; Admin Dose 2 MG; Start 06/21/18 at 21:00 Bisacodyl (Dulcolax Supp) 10 mg DAILY PRN [place] CONSTIPATION Last administered on 07/01/18at 10:53; Admin Dose 10 MG; Start 06/25/18 at 12:00 Total Parenteral Nutrition 1,000 ml @ 60 mls/hr [id number] IV Last administered on 07/11/18 14:38; Admin Dose 60 MLS/HR; Start 06/26/18 at 20:00 Diphenhydramine HCl (Benadryl) 25 mg Q6H PRN IV ALLERGIC REACTION; Start 06/29/18 at 11:00 Prochlorperazine (Compazine Inj) 5 mg Q4H PRN IV NAUSEA AND/OR VOMITING Last administered on 07/10/18 11:57; Admin Dose 5 MG; Start 07/04/18 at 11:00 Ondansetron HCl 8 mg/Sodium Chloride 54 ml @ 216 mls/hr Q6H PRN IV NAUSEA AND/OR VOMITING Last administered on 07/05/18 23:18; Admin Dose 216 MLS/HR; Start 07/04/18 at 11:30 Famotidine (Pepcid Iv) 20 mg BID IV Last administered on 07/12/18 08:25; Admin Dose 20 MG; Start 07/05/18 at 11:00 Vancomycin HCl (Vanco Iv Per Pharmacy) VANCOMYCIN PER PHARMACY PER PROTOCOL XX ; Start 07/10/18 at 04:00 Meropenem/Sodium Chloride 50 ml @ 100 mls/hr Q12 IVPB Last administered on 07/12/18 08:26; Admin Dose 100 MLS/HR; Start 07/10/18 at 18:00 Caspofungin 50 mg/ Sodium Chloride 250 ml @ 250 mls/hr Q24H IVPB Last administered on 07/11/18at 16:04; Admin Dose 250 MLS/HR; Start 07/11/18 at 17:00 Midazolam HCl 50 ml @ 1 mls/hr TITRATE IV Last administered on 07/12/18 03:52; Admin Dose 10 MLS/HR; Start 07/10/18 at 17:00 Fentanyl 100 ml @ 2.5 mls/hr TITRATE IV ; Start 07/10/18 at 17:00 Norepinephrine 32 mg/Sodium Chloride 250 ml @ 0.47 mls/hr TITRATE IV Last administered on 07/11/18 14:09; Admin Dose 11.72 MLS/HR; Start 07/10/18 at 19:30 Sodium Hypochlorite (Dakin'S (Dilute )) 1 applic DAILY IRR Last administe red on 07/12/18at 08:25; Admin Dose 1 APPLIC; Start 07/11/18 at 09:00 Acetaminophen 100 ml @ 400 mls/hr Q6H PRN IVPB fever/pain Last administered on 07/11/18at 12:17; Admin Dose 400 MLS/HR; Start 07/11/18 at 11:30; Stop 07/12/18 at 11:29 Vancomycin HCl 100 ml @ 100 mls/hr Q12H IVPB Last administered on 07/12/18at 08:22; Admin Dose 100 MLS/HR; Start 07/12/18 at 08:00 Phenylephrine HCl 80 mg/Sodium Chloride 250 ml @ 18.75 mls/ hr TITRATE IV Last administered on 07/12/18at 00:45; Admin Dose 18.75 MLS/HR; Start 07/11/18 at 21:00 Miscellaneous Information (*Order Clarification Bulletin) please mix all gtts in nor... Q72H XX Last administered on 07/11/18at 20:44; Admin Dose 1 EA; Start 07/11/18 at 20:30 Dexamethasone 20 mg/Sodium Chloride 55 ml @ 252 mls/hr Q6H PRN IVPB ALLERGIC REACTION; Start 07/11/18 at 21:00 Epinephrine 4 mg/ Sodium Chloride 250 ml @ 0 mls/hr TITRATE IV Last administe red on 07/12/18at 08:04; Admin Dose 15 MLS/HR; Start 07/11/18 at 21:00 Vasopressin 60 unit/Sodium Chloride 60 ml @ 1.2 mls/hr Q12H IV ; Start 07/11/18 at 21:00 Insulin Aspart (Novolog Insulin Pen) (Adult SC Insulin - Moder... Q6 SC Last administered on 07/12/18at 00:38; Admin Dose 6 UNIT; Start 07/12/18 at 00:00 Miscellaneous Information 1 ea NOTE XX ; Start 07/11/18 at 21:30 Glucose (Glutose) 15 gm Q15M PRN PO DECREASED GLUCOSE; Start 07/11/18 at 21:30 Glucose (Glutose) 22.5 gm Q15M PRN PO DECREASED GLUCOSE; Start 07/11/18 at 21:30 Dextrose (D50w Syringe) 25 ml Q15M PRN IV DECREASED GLUCOSE; Start 07/11/18 at 21:30 Dextrose (D50w Syringe) 50 ml Q15M PRN IV DECREASED GLUCOSE; Start 07/11/18 at 21:30 Glucagon (Glucagen) 1 mg Q15M PRN IM DECREASED GLUCOSE; Start 07/11/18 at 21:30 Glucose (Glutose) 15 gm Q15M PRN BUCCAL DECREASED GLUCOSE; Start 07/11/18 at 21:30 Miscellaneous Information (*Order Clarification Bulletin) MEDICATION REQUIRES CLARIFICATI... Q8H XX Last administered on 07/12/18at 05:41; Admin Dose 1 EA; Start 07/11/18 at 22:30; Stop 07/13/18 at 22:29 Sodium Bicarbonate 150 meq/Sodium Chloride 1,150 ml @ 115 mls/hr Q10H IV Last administered on 07/12/18at 07:44; Admin Dose 115 MLS/HR; Start 07/12/18 at 07:30 ALFONSO WALTERS Jul 12, 2018 08:39
[2018-07-12] MEDS ORDERED: MAGNESIUM SULFATE 2 GM/50 ML 50 ML IVPB ONE (09:30)
--- NOTE | 2018-07-12 09:35 | PN ---
Date/Time of Note Date/Time of Note DATE: 07/12/18 TIME: 09:32 Objective Vitals Vital Signs Date Temp Pulse Resp B/P (MAP) Pulse Ox O2 O2 Flow FiO2 Time Delivery Rate 07/12/18 108 20 140/75 09:15 (96) 07/12/18 99 Mechanical 09:00 Ventilator 07/12/18 30 08:00 07/12/18 98.6 08:00 07/08/18 8.0 15:40 Intake and Output 07/11/18 07/11/18 07/12/18 1515:00 23:00 07:00 IntakeIntake Total 4594.25 ml 2643.22 ml 1890.63 ml OutputOutput Total 680 ml 500 ml 1160 ml BalanceBalance 3914.25 ml 2143.22 ml 730.63 ml Results Result Diagram: 07/12/18 0500 07/12/18 0703 Medications Medications Current Medications IV Flush (NS 3 ml) 3 ml PER PROTOCOL IV ; Start 06/10/18 at 18:00 Lorazepam (Ativan) 1 mg Q4H PRN IV anxiety Last administered on 06/12/18at 15:28; Admin Dose 1 MG; Start 06/11/18 at 21:30 IV Flush (NS 10 ml) 10 ml PRN PRN IV IV PROTOCOL; Start 06/16/18 at 17:00 Methylnaltrexone [place] (Relistor) 12 mg Q48H SC ; Start 06/17/18 at 08:30 Phenol (Chloraseptic Throat [place]) 2 spray Q2H PRN MT SORE THROAT Last administered on 06/17/18at 21:23; Admin Dose 2 SPRAY; Start 06/17/18 at 11:30 Morphine Sulfate (morphine) 2 mg Q4H PRN IV SEVERE PAIN LEVEL 7-10 Last administered on 07/10/18at 17:11; Admin Dose 2 MG; Start 06/21/18 at 21:00 Bisacodyl (Dulcolax Supp) 10 mg DAILY PRN [place] CONSTIPATION Last administered on 07/01/18at 10:53; Admin Dose 10 MG; Start 06/25/18 at 12:00 Total Parenteral Nutrition 1,000 ml @ 60 mls/hr [id number] IV Last administered on 07/11/18at 14:38; Admin Dose 60 MLS/HR; Start 06/26/18 at 20:00 Diphenhydramine HCl (Benadryl) 25 mg Q6H PRN IV ALLERGIC REACTION; Start 06/29/18 at 11:00 Prochlorperazine (Compazine Inj) 5 mg Q4H PRN IV NAUSEA AND/OR VOMITING Last administered on 07/10/18 11:57; Admin Dose 5 MG; Start 07/04/18 at 11:00 Ondansetron HCl 8 mg/Sodium Chloride 54 ml @ 216 mls/hr Q6H PRN IV NAUSEA AND/OR VOMITING Last administered on 07/05/18 23:18; Admin Dose 216 MLS/HR; Start 07/04/18 at 11:30 Famotidine (Pepcid Iv) 20 mg BID IV Last administered on 07/12/18 08:25; Admin Dose 20 MG; Start 07/05/18 at 11:00 Vancomycin HCl (Vanco Iv Per Pharmacy) VANCOMYCIN PER PHARMACY PER PROTOCOL XX ; Start 07/10/18 at 04:00 Meropenem/Sodium Chloride 50 ml @ 100 mls/hr Q12 IVPB Last administered on 07/12/18 08:26; Admin Dose 100 MLS/HR; Start 07/10/18 at 18:00 Caspofungin 50 mg/ Sodium Chloride 250 ml @ 250 mls/hr Q24H IVPB Last adminis tered on 07/11/18at 16:04; Admin Dose 250 MLS/HR; Start 07/11/18 at 17:00 Midazolam HCl 50 ml @ 1 mls/hr TITRATE IV Last administered on 07/12/18 03:52; Admin Dose 10 MLS/HR; Start 07/10/18 at 17:00 Fentanyl 100 ml @ 2.5 mls/hr TITRATE IV ; Start 07/10/18 at 17:00 Norepinephrine 32 mg/Sodium Chloride 250 ml @ 0.47 mls/hr TITRATE IV Last administered on 07/11/18 14:09; Admin Dose 11.72 MLS/HR; Start 07/10/18 at 19:30 Sodium Hypochlorite (Dakin'S (Dilute 40)) 1 applic DAILY IRR Last admini stered on 07/12/18 08:25; Admin Dose 1 APPLIC; Start 07/11/18 at 09:00 Acetaminophen 100 ml @ 400 mls/hr Q6H PRN IVPB fever/pain Last administered on 07/11/18at 12:17; Admin Dose 400 MLS/HR; Start 07/11/18 at 11:30; Stop 07/12/18 at 11:29 Vancomycin HCl 100 ml @ 100 mls/hr Q12H IVPB Last administered on 07/12/18at 08:22; Admin Dose 100 MLS/HR; Start 07/12/18 at 08:00 Phenylephrine HCl 80 mg/Sodium Chloride 250 ml @ 18.75 mls/ hr TITRATE IV Last administered on 07/12/18at 00:45; Admin Dose 18.75 MLS/HR; Start 07/11/18 at 21:00 Miscellaneous Information (*Order Clarification Bulletin) please mix all gtts in nor... Q72H XX Last administered on 07/11/18at 20:44; Admin Dose 1 EA; Start 07/11/18 at 20:30 Dexamethasone 20 mg/Sodium Chloride 55 ml @ 252 mls/hr Q6H PRN IVPB ALLERGIC REACTION; Start 07/11/18 at 21:00 Epinephrine 4 mg/ Sodium Chloride 250 ml @ 0 mls/hr TITRATE IV Last admini stered on 07/12/18at 08:04; Admin Dose 15 MLS/HR; Start 07/11/18 at 21:00 Vasopressin 60 unit/Sodium Chloride 60 ml @ 1.2 mls/hr Q12H IV ; Start 07/11/18 at 21:00 Insulin Aspart (Novolog Insulin Pen) (Adult SC Insulin - Moder... Q6 SC Last administered on 07/12/18at 00:38; Admin Dose 6 UNIT; Start 07/12/18 at 00:00 Miscellaneous Information 1 ea NOTE XX ; Start 07/11/18 at 21:30 Glucose (Glutose) 15 gm Q15M PRN PO DECREASED GLUCOSE; Start 07/11/18 at 21:30 Glucose (Glutose) 22.5 gm Q15M PRN PO DECREASED GLUCOSE; Start 07/11/18 at 21:30 Dextrose (D50w Syringe) 25 ml Q15M PRN IV DECREASED GLUCOSE; Start 07/11/18 at 21:30 Dextrose (D50w Syringe) 50 ml Q15M PRN IV DECREASED GLUCOSE; Start 07/11/18 at 21:30 Glucagon (Glucagen) 1 mg Q15M PRN IM DECREASED GLUCOSE; Start 07/11/18 at 21:30 Glucose (Glutose) 15 gm Q15M PRN BUCCAL DECREASED GLUCOSE; Start 07/11/18 at 21:30 Miscellaneous Information (*Order Clarification Bulletin) MEDICATION REQUIRES CLARIFICATI... Q8H XX Last administered on 07/12/18at 05:41; Admin Dose 1 EA; Start 07/11/18 at 22:30; Stop 07/13/18 at 22:29 Sodium Bicarbonate 150 meq/Sodium Chloride 1,150 ml @ 115 mls/hr Q10H IV Last administered on 07/12/18at 07:44; Admin Dose 115 MLS/HR; Start 07/12/18 at 07:30 Calcium Gluconate 2 gm/Dextrose 120 ml @ 60 mls/hr ONCE ONCE IVPB ; Start 07/12/18 at 09:30; Stop 07/12/18 at 11:29; Status UNV Magnesium Sulfate 50 ml @ 25 mls/hr ONCE ONCE IVPB ; Start 07/12/18 at 09:30; Stop 07/12/18 at 11:29; Status UNV Potassium Chloride 100 ml @ 50 mls/hr Q2H IVPB ; Start 07/12/18 at 09:30; Stop 07/12/18 at 13:29; Status UNV VTE Prophylaxis Risk score (from Ns)>0 risk: 13 SCD applied (from Ns): Yes SCD contraindication: other Lines/Catheters IV Catheter Type: Urias in Place: Yes Cont'd urias catheter reason: terminal illness/intractable pain Assessment/Plan Hospital Course Subjective Patient remains sedated on Versed, worsening blood pressure, on pressors Objective Physical exam General: Patient is laying in bed, sedated and intubated Mentation: Patient is intubated and sedated Head: Normocephalic atraumatic Eyes: EOMI, pupils reactive to light but sluggish Neck: Supple, nontender, midline Respiratory: Clear to auscultation bilaterally Cardiovascular: regular rate, no obvious murmurs Gastrointestinal: Surgical site bandaged, abdomen is moderately rigid Neurological: Unable to assess due to sedation Skin: Surgical site bandaged Assessment/Plan 1. Septic shock secondary to intraabdominal source - patient on pressor support with goal MAP >65 - CT scan results noted with Sven tube leak. Gen surgery took patient to OR with findings of abscess formation and necrotic tissue secondary to bile leakage into abdominal cavity on 07/10/17 - Continue IV antibiotics and pressor support as needed -profound lactic acid elevation lactic acidosis -2/2 to above intraabdoinal infection, s/p removal of necrotic tissue and abscess removal -bicarb drip started per specialist thrombocytopenia -likely due to overwhelming infection, ?DIC , but will defer to hematology -No sources of bleeding, monitor closely for now, transfuse platelets and blood as needed 2. Acute hypoxic respiratory failure - On mechanical ventilation following OR - Pulmonology consultation placed for vent management 3. Partial obstructive gastric outlet - Surgery on board and appreciate recommendations. J tube placed 07/08, repositioned on 07/10. - s/p placement of stent by GI. Repeat SBFT shows patency of stent 4. 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 Completed first round of chemotherapy and will need to follow up as outpatient for further treatment - perma cath placement when stable - Patient's prior oncologist is Dr Mae at [facility]. but she wishes to follow up with Dr. Vick now. 5. JAMAL - trending up in setting of septic shock - will continue on IVF - nephrology consultation appreciated 6. PUD - GI on board and appreciate recommendations - Pepcid BID 7. Constipation - bowel regimen when stable 8. Disposition -Family conference with palliative care physician was done, patient's children are in agreement with DO NOT RESUSITATE. - Remains intubated in ICU and will continue weaning pressor support as tolerated -more than 40 minutes of critical care time was spent on this encounter - Continue all care. Very poor prognosis at this time. ALYX HENDRIX Jul 12, 2018 09:35
--- NOTE | 2018-07-12 09:40 | CONS ---
Assessment/Plan Assessment/Plan Assessment/Plan (Daily) Chest x-ray was reviewed from today which is essentially clear. Patient is currently on assist control of 14, tidal volume 550, PEEP of 5, 30% FiO2. Vasopressin 0.04 units/min, phenylephrine drip 80 mics per minute, Levophed 25 mics per minute, Versed 5 mg/h, sodium bicarbonate drip 115 mL/h. TPN. Assessment and recommendations; 1. Patient status post laparotomy for abdominal abscess as well as adhesion lysis. 2. Severe ongoing sepsis with gram-negative bacteremia. 3. History of ovarian and gastric cancer. 4. Worsening renal function. 5. Persistent severe shock. 6. Persistent ileus. 7. Pancytopenia with severe thrombocytopenia. Possibly low-grade DIC. Continue current supportive care. Wean down pressor support as tolerated. Obtain follow-up ABG. Further recommendations once ABG is performed. Prognosis appears very poor. 35 minutes of critical care time was spent evaluating the patient. Consultation Date/Type/Reason Admit Date/Time Jun 10, 2018 at 18:42 Initial Consult Date 07/11/18 Type of Consult Pulmonary/critical care Pulmonary consult requested for evaluation of respiratory failure and sepsis. Patient is a 47-year-old lady who was admitted on 06/10/2018 with complaints of abdominal pain. The patient has had a very prolonged stay in the hospital and was diagnosed with bowel obstruction and abdominal abscess and underwent laparotomy yesterday. She also underwent adhesion lysis as well as drainage of abdominal abscess. Patient currently is critically ill requiring multiple pressor agents. By the time I saw her in ICU, patient is orally intubated on ventilator and sedated. History was obtained from medical records. Past medical history; 1. History of partial gastrectomy last year due to gastric malignancy. 2. History of ovarian cancer. Status post resection. Medications; patient is on multiple pressor agents. Including vasopressin, phenylephrine, Levophed. Patient also on sodium bicarbonate drip. Antibiotics were reviewed. Allergies; none. Social history, family history, occupational history not available. Review of system; unable to be obtained. General exam; young female, orally intubated, sedated, currently in no distress. Requesting Provider: ELMER CAVAZOS MD Date/Time of Note DATE: 07/12/18 TIME: 09:37 24 HR Interval Summary Free Text/Dictation Patient's condition remains extremely critical. Patient however has improved slightly hemodynamically with improving blood pressure. General exam; young female, orally intubated, sedated, currently in no distress. Exam/Review of Systems Exam Vitals Vital Signs Date Temp Pulse Resp B/P (MAP) Pulse Ox O2 O2 Flow FiO2 Time Delivery Rate 07/12/18 108 20 140/75 09:15 (96) 07/12/18 99 Mechanical 09:00 Ventilator 07/12/18 30 08:00 07/12/18 98.6 08:00 07/08/18 8.0 15:40 Intake and Output 07/11/18 07/11/18 07/12/18 1515:00 23:00 07:00 IntakeIntake Total 4594.25 ml 2643.22 ml 1890.63 ml OutputOutput Total 680 ml 500 ml 1160 ml BalanceBalance 3914.25 ml 2143.22 ml 730.63 ml Exam HEENT exam; supple neck, no JVD. No lymphadenopathy. Midline trachea. No thyromegaly. Orally intubated. Pupils are small bilaterally. There is mild bilateral subconjunctival edema. She has fair dentition. Chest exam; clear to auscultation. S1-S2 audible, no murmurs. Regular rhythm. Abdomen exam; tense. Bowel sounds are absent. Midline dressing in place. Extremity exam; trace edema. 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 Results Result Diagram: 07/12/18 0500 07/12/18 0703 Results 24hrs Laboratory Tests Test 07/11/18 12:26 07/11/18 14:38 07/12/18 00:32 07/12/18 04:00 Fibrinogen 407.0 D-Dimer > 92605.00 H Vancomycin Level 18.4 Trough Bedside Glucose 253 H Lactic Acid 13.7 *H Level Test 07/12/18 05:00 07/12/18 05:09 07/12/18 05:36 07/12/18 07:03 White Blood 0.5 L Count Red Blood Count 3.62 L Hemoglobin 10.3 L Hematocrit 29.2 L Mean Corpuscular 80.7 L Volume Mean Corpuscular 28.5 L Hemoglobin Mean Corpuscular 35.3 Hemoglobin Verito nt Red Cell 15.9 H Distribution Width Platelet Count 20 #*L Mean Platelet 9.6 Volume Immature 0.000 L Granulocytes % Neutrophils % Lymphocytes % Lymphocytes % 64 H (Manual) Reactive 28 H Lymphocytes % (Manual) Monocytes % Monocytes % 8 (Manual) Eosinophils % Basophils % Nucleated Red 544 H Blood Cells % Immature 0.000 Granulocytes # Neutrophils # Lymphocytes 0.3 L (Manual) Lymphocytes # Reactive 0.1 H Lymphocytes # Monocytes # Monocytes # 0.0 L (Manual) Eosinophils # Basophils # Nucleated Red Blood Cells # White Cell @See below Morphology Comment Platelet SIG DECREASED Estimate Giant Platelets 4 H Polychromasia 2+ Poikilocytosis 2+ Anisocytosis 1+ Target Cells 1+ Ovalocytes 1+ Red Cell @See below Morphology Comment Lab Scanned BLOOD TRANSFUSI Report ON Bedside Glucose 127 Sodium Level 147 H Potassium Level 3.1 L Chloride Level 105 Carbon Dioxide 22 # Level Anion Gap 20 H Blood Urea 54 H Nitrogen Creatinine 1.74 H Est Glomerular 31 L Filtrat Rate mL/min Glucose Level 128 Calcium Level 5.6 *L Phosphorus Level 3.3 Magnesium Level 1.6 L Total Bilirubin 0.5 Direct Bilirubin 0.10 Indirect 0.4 Bilirubin Aspartate Amino 2170 H Transf (AST/SGOT ) Alanine 1951 H Aminotransferase (ALT/SGPT) Alkaline 89 # Phosphatase Total Protein 4.2 L Albumin 2.0 L Medications Medication Current Medications IV Flush (NS 3 ml) 3 ml PER PROTOCOL IV ; Start 06/10/18 at 18:00 Lorazepam (Ativan) 1 mg Q4H PRN IV anxiety Last administered on 06/12/18at 15:28; Admin Dose 1 MG; Start 06/11/18 at 21:30 IV Flush (NS 10 ml) 10 ml PRN PRN IV IV PROTOCOL; Start 06/16/18 at 17:00 Methylnaltrexone [place] (Relistor) 12 mg Q48H SC ; Start 06/17/18 at 08:30 Phenol (Chloraseptic Throat [place]) 2 spray Q2H PRN MT SORE THROAT Last administered on 06/17/18at 21:23; Admin Dose 2 SPRAY; Start 06/17/18 at 11:30 Morphine Sulfate (morphine) 2 mg Q4H PRN IV SEVERE PAIN LEVEL 7-10 Last administered on 07/10/18at 17:11; Admin Dose 2 MG; Start 06/21/18 at 21:00 Bisacodyl (Dulcolax Supp) 10 mg DAILY PRN [place] CONSTIPATION Last administered on 3/1/19at 10:53; Admin Dose 10 MG; Start 06/25/18 at 12:00 Total Parenteral Nutrition 1,000 ml @ 60 mls/hr [id number] IV Last administered on 07/11/18 14:38; Admin Dose 60 MLS/HR; Start 06/26/18 at 20:00 Diphenhydramine HCl (Benadryl) 25 mg Q6H PRN IV ALLERGIC REACTION; Start 06/29/18 at 11:00 Prochlorperazine (Compazine Inj) 5 mg Q4H PRN IV NAUSEA AND/OR VOMITING Last administered on 07/10/18 11:57; Admin Dose 5 MG; Start 07/04/18 at 11:00 Ondansetron HCl 8 mg/Sodium Chloride 54 ml @ 216 mls/hr Q6H PRN IV NAUSEA AND/OR VOMITING Last administered on 07/05/18 23:18; Admin Dose 216 MLS/HR; Start 07/04/18 at 11:30 Famotidine (Pepcid Iv) 20 mg BID IV Last administered on 07/12/18 08:25; Admin Dose 20 MG; Start 07/05/18 at 11:00 Vancomycin HCl (Vanco Iv Per Pharmacy) VANCOMYCIN PER PHARMACY PER PROTOCOL XX ; Start 07/10/18 at 04:00 Meropenem/Sodium Chloride 50 ml @ 100 mls/hr Q12 IVPB Last administered on 07/12/18 08:26; Admin Dose 100 MLS/HR; Start 07/10/18 at 18:00 Caspofungin 50 mg/ Sodium Chloride 250 ml @ 250 mls/hr Q24H IVPB Last administ ered on 07/11/18 16:04; Admin Dose 250 MLS/HR; Start 07/11/18 at 17:00 Midazolam HCl 50 ml @ 1 mls/hr TITRATE IV Last administered on 07/12/18 03:52; Admin Dose 10 MLS/HR; Start 07/10/18 at 17:00 Fentanyl 100 ml @ 2.5 mls/hr TITRATE IV ; Start 07/10/18 at 17:00 Norepinephrine 32 mg/Sodium Chloride 250 ml @ 0.47 mls/hr TITRATE IV Last administered on 07/11/18 14:09; Admin Dose 11.72 MLS/HR; Start 07/10/18 at 19:30 Sodium Hypochlorite (Dakin'S (Dilute )) 1 applic DAILY IRR Last adminis tered on 07/12/18at 08:25; Admin Dose 1 APPLIC; Start 07/11/18 at 09:00 Acetaminophen 100 ml @ 400 mls/hr Q6H PRN IVPB fever/pain Last administered on 07/11/18at 12:17; Admin Dose 400 MLS/HR; Start 07/11/18 at 11:30; Stop 07/12/18 at 11:29 Vancomycin HCl 100 ml @ 100 mls/hr Q12H IVPB Last administered on 07/12/18at 08:22; Admin Dose 100 MLS/HR; Start 07/12/18 at 08:00 Phenylephrine HCl 80 mg/Sodium Chloride 250 ml @ 18.75 mls/ hr TITRATE IV Last administered on 07/12/18at 00:45; Admin Dose 18.75 MLS/HR; Start 07/11/18 at 21:00 Miscellaneous Information (*Order Clarification Bulletin) please mix all gtts in nor... Q72H XX Last administered on 07/11/18at 20:44; Admin Dose 1 EA; Start 07/11/18 at 20:30 Dexamethasone 20 mg/Sodium Chloride 55 ml @ 252 mls/hr Q6H PRN IVPB ALLERGIC REACTION; Start 07/11/18 at 21:00 Epinephrine 4 mg/ Sodium Chloride 250 ml @ 0 mls/hr TITRATE IV Last adminis tered on 07/12/18at 08:04; Admin Dose 15 MLS/HR; Start 07/11/18 at 21:00 Vasopressin 60 unit/Sodium Chloride 60 ml @ 1.2 mls/hr Q12H IV ; Start 07/11/18 at 21:00 Insulin Aspart (Novolog Insulin Pen) (Adult SC Insulin - Moder... Q6 SC Last administered on 07/12/18at 00:38; Admin Dose 6 UNIT; Start 07/12/18 at 00:00 Miscellaneous Information 1 ea NOTE XX ; Start 07/11/18 at 21:30 Glucose (Glutose) 15 gm Q15M PRN PO DECREASED GLUCOSE; Start 07/11/18 at 21:30 Glucose (Glutose) 22.5 gm Q15M PRN PO DECREASED GLUCOSE; Start 07/11/18 at 21:30 Dextrose (D50w Syringe) 25 ml Q15M PRN IV DECREASED GLUCOSE; Start 07/11/18 at 21:30 Dextrose (D50w Syringe) 50 ml Q15M PRN IV DECREASED GLUCOSE; Start 07/11/18 at 21:30 Glucagon (Glucagen) 1 mg Q15M PRN IM DECREASED GLUCOSE; Start 07/11/18 at 21:30 Glucose (Glutose) 15 gm Q15M PRN BUCCAL DECREASED GLUCOSE; Start 07/11/18 at 21:30 Miscellaneous Information (*Order Clarification Bulletin) MEDICATION REQUIRES CLARIFICATI... Q8H XX Last administered on 07/12/18at 05:41; Admin Dose 1 EA; Start 07/11/18 at 22:30; Stop 07/13/18 at 22:29 Sodium Bicarbonate 150 meq/Sodium Chloride 1,150 ml @ 115 mls/hr Q10H IV Last administered on 07/12/18at 07:44; Admin Dose 115 MLS/HR; Start 07/12/18 at 07:30 Calcium Gluconate 2 gm/Dextrose 120 ml @ 60 mls/hr ONCE ONCE IVPB ; Start 07/12/18 at 09:30; Stop 07/12/18 at 11:29; Status UNV Magnesium Sulfate 50 ml @ 25 mls/hr ONCE ONCE IVPB ; Start 07/12/18 at 09:30; Stop 07/12/18 at 11:29; Status UNV Potassium Chloride 100 ml @ 50 mls/hr Q2H IVPB ; Start 07/12/18 at 09:30; Stop 07/12/18 at 13:29; Status UNV MARY ANN ARAIZA Jul 12, 2018 09:40
[2018-07-12] MEDS: POTASSIUM CHLORIDE 100 ML IVPB SCH ×2 (10:09→11:39)
[2018-07-12] MEDS ORDERED: CALCIUM GLUCONATE 10% 2 GM in DEXTROSE 5% 100 ML IVPB ONE (11:00)
--- NOTE | 2018-07-12 12:01 | PN ---
Date/Time of Note Date/Time of Note DATE: 07/12/18 TIME: 11:56 Assessment/Plan Lines/Catheters IV Catheter Type (from Nrs): Ramsey in Place (from Nrs): Yes Assessment/Plan Chief Complaint/Hosp Course 1. CT with emphysematous gastritis, portal venous air, thickening of pylorus and duodenal bulb, thick-walled gallbladder, mesenteric inflammation in the upper abdomen with free fluid. Repeat CT noted with improvement of emphysematous gastritis; EGD w stent placement 06/21/18; 04/06/19 status post gastrojejunostomy, resection of right ovarian mass and partial omentectomy at [facility] by . UGI noted with patent stent but continues to have intermittent vomiting. s/p Lap feeding tube, however frozen abdomen and intestines plastered to abdominal wall and initial trocar directly entered into bowel and used as feeding tube site. Contrast study did not identify leak and therefore feeding tube was placed at the site. Patient with persistent tachycardia and now hypotension taken to OR 3/10 and found significant infection, abscess, necrosis left abdominal wall s/p I&D&D. Intra- abdominally locally no acute issues besides adhesions. Patient initially better but worsening on 4 pressors and family has made her DNR. 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 Previous history of perforated duodenal ulcer and obstruction favors site of primary tumor in the upper GI tract. -Per oncology> status post chemo cycle 1; subsequent chemo cycles per oncology 3. Pancytopenia, with possible dic2nd sepsis, -supportive and tx prn 4. Poor nutrition: TPN -As above 5. Sepsis with shock, multi-organ failure, worsening lactic acidosis -as above 6. Renal insufficiency -as above -minimize nephrotoxic agents as possible Thank you. Patient seen and examined in collaboration with Dr. Ag Calle. Subjective 24 Hr Interval Summary Continues in icu care intubated and on multiple pressor support. No bowel function as of yet. Large NG output. Appears comfortable. Nonverbal indicators of pain not present. Min temp. No labored breathing, vomiting, seizure, rash. Exam/Review of Systems Vital Signs Vitals Vital Signs Date Temp Pulse Resp B/P (MAP) Pulse Ox O2 O2 Flow FiO2 Time Delivery Rate 07/12/18 107 12:00 07/12/18 99.3 18 121/64 11:30 (83) 07/12/18 98 11:00 07/12/18 Mechanical 09:00 Ventilator 07/12/18 30 08:00 07/08/18 8.0 15:40 Intake and Output 07/11/18 07/11/18 07/12/18 1515:00 23:00 07:00 IntakeIntake Total 4594.25 ml 2643.22 ml 1890.63 ml OutputOutput Total 680 ml 500 ml 1160 ml BalanceBalance 3914.25 ml 2143.22 ml 730.63 ml Exam Free Text/Dictation Constitutional: ventilated, frail Psych: ventilated Head: normocephalic, atraumatic Eyes: nl conjunctiva, No icteric ENMT: nl external ears & nose, nl lips & teeth, mucosa pink and moist; ETT Neck: supple, non-tender; No jvd Respiratory: normal air movement; tachypnic No congested cough, No wheezing Cardiovascular: Tachycardic Gastrointestinal: soft, tender, feeding tube, less rigid, LUQ wound clean- packed; ecchymosis left lower side; missy serosang Musculoskeletal: nl extremities to inspection; No joint tenderness Extremities: normal pulses; No calf tenderness, No edema Neurological: ventilated Skin: nl turgor; No rash or lesions, No diaphoresis Lymph: nl lymph nodes Results Result Diagram: 07/12/18 0500 07/12/18 0703 IVELISSE CEJA NP Jul 12, 2018 12:00
--- NOTE | 2018-07-12 14:12 | CONS ---
Assessment/Plan Assessment/Plan Hospital Course (Demo Recall) No acute events overnight patient remains on multiple pressors, intubated, in no distress she is spiking fevers with a T-max yesterday 101 this morning 100 currently 99.3 WBC 0.5 platelets 20 BUN 54 creatinine 1.74 Microbiology: Blood culture growing Pseudomonas species with final sensitivities pending, abdominal drainage culture growing multiple bacteria and alpha hemolytic strep species Indwelling: Right upper extremity PICC line, right IJ triple-lumen catheter, Ramsey catheter, left-sided abdominal drainage catheters, a line Antimicrobials: Vancomycin, meropenem, Cancidas Physical examination: This is a well-developed well-nourished middle-aged woman who is intubated sedated in no distress. Head atraumatic normocephalic. Neck is supple. Chest rise symmetrical breath sounds diminished bases. Heart: S1-S2 tachycardic regular abdomen distended no bowel tones auscultated extremities mottled and cyanotic Assessment: 1. Sepsis with shock 2. Multisystem organ failure 3. PSA bacteremia likely 2 to #4 4. Abdominal wall abscess with necrosis status post I&D abdominal exploration with lysis of adhesions 3. Acute renal failure 4. Acute respiratory failure 5. Gastric and ovarian cancer 6. Pancytopenia with neutropenia Plan: Doing poorly, hemodynamically unstable, continue antibiotics, await for final cultures, patient is DNR status, palliative care on case DW RN Consultation Date/Type/Reason Admit Date/Time Jun 10, 2018 at 18:42 Initial Consult Date 07/11/18 Type of Consult id Requesting Provider: ELMER CAVAZOS MD Date/Time of Note DATE: 07/12/18 TIME: 14:10 Exam/Review of Systems Exam Vitals Vital Signs Date Temp Pulse Resp B/P (MAP) Pulse Ox O2 O2 Flow FiO2 Time Delivery Rate 07/12/18 107 12:00 07/12/18 99.3 18 121/64 11:30 (83) 07/12/18 98 11:00 07/12/18 Mechanical 09:00 Ventilator 07/12/18 30 08:00 07/08/18 8.0 15:40 Intake and Output 07/11/18 07/11/18 07/12/18 1515:00 23:00 07:00 IntakeIntake Total 4594.25 ml 2643.22 ml 1890.63 ml OutputOutput Total 680 ml 500 ml 1160 ml BalanceBalance 3914.25 ml 2143.22 ml 730.63 ml Results Result Diagram: 07/12/18 0500 07/12/18 0703 Results 24hrs Laboratory Tests Test 07/11/18 14:38 07/12/18 00:32 07/12/18 04:00 07/12/18 05:00 Vancomycin Level 18.4 Trough Bedside Glucose 253 H Lactic Acid 13.7 *H Level White Blood 0.5 L Count Red Blood Count 3.62 L Hemoglobin 10.3 L Hematocrit 29.2 L Mean Corpuscular 80.7 L Volume Mean Corpuscular 28.5 L Hemoglobin Mean Corpuscular 35.3 Hemoglobin Verito nt Red Cell 15.9 H Distribution Width Platelet Count 20 #*L Mean Platelet 9.6 Volume Immature 0.000 L Granulocytes % Neutrophils % Lymphocytes % Lymphocytes % 64 H (Manual) Reactive 28 H Lymphocytes % (Manual) Monocytes % Monocytes % 8 (Manual) Eosinophils % Basophils % Nucleated Red 544 H Blood Cells % Immature 0.000 Granulocytes # Neutrophils # Lymphocytes 0.3 L (Manual) Lymphocytes # Reactive 0.1 H Lymphocytes # Monocytes # Monocytes # 0.0 L (Manual) Eosinophils # Basophils # Nucleated Red Blood Cells # White Cell @See below Morphology Comment Platelet SIG DECREASED Estimate Giant Platelets 4 H Polychromasia 2+ Poikilocytosis 2+ Anisocytosis 1+ Target Cells 1+ Ovalocytes 1+ Red Cell @See below Morphology Comment Test 07/12/18 05:09 07/12/18 05:36 07/12/18 07:03 07/12/18 09:35 Lab Scanned BLOOD TRANSFUSI Report ON Bedside Glucose 127 Sodium Level 147 H Potassium Level 3.1 L Chloride Level 105 Carbon Dioxide 22 # Level Anion Gap 20 H Blood Urea 54 H Nitrogen Creatinine 1.74 H Est Glomerular 31 L Filtrat Rate mL/min Glucose Level 128 Calcium Level 5.6 *L Phosphorus Level 3.3 Magnesium Level 1.6 L Total Bilirubin 0.5 Direct Bilirubin 0.10 Indirect 0.4 Bilirubin Aspartate Amino 2170 H Transf (AST/SGOT ) Alanine 1951 H Aminotransferase (ALT/SGPT) Alkaline 89 # Phosphatase Total Protein 4.2 L Albumin 2.0 L Blood Gas Blood arterial Specimen Source Arterial Blood 07/12/2018 9:45: Date Drawn 00 AM Arterial Blood 7.484 H pH (Temp corrected) Arterial Blood 25.9 L pCO2 (Temp correct) Arterial Blood 117.7 H pO2 (Temp corrected) Arterial Blood 19.0 L HCO3 Arterial Blood -3.3 L Base Excess Arterial Blood 97.5 Oxygen Saturatio n Dionte Test N/A Arterial Blood A-Line Gas Puncture Site Arterial 0.2 Blood Carboxyhem oglobin Arterial Blood 0.4 Methemoglobin Blood Gas A-a O2 65.8 H Differential Oxyhemoglobin 96.9 Percent Blood Gas 37.0 Temperature Blood Gas 14.0 Respiration Rate Blood Gas Actual 19 Respiration Rate Blood Gas VENT - AC Modality FiO2 30.0 Blood Gas Tidal 550.0 Volume Blood Gas Low 5.0 PEEP Setting Blood Gas TM Notified Whom Blood Gas 07/12/2018 9:54: Notified Time 00 AM Test 07/12/18 09:49 07/12/18 11:41 Ionized Calcium 0.7 L (Measured) Bedside Glucose 131 Medications Medication Current Medications IV Flush (NS 3 ml) 3 ml PER PROTOCOL IV ; Start 06/10/18 at 18:00 Lorazepam (Ativan) 1 mg Q4H PRN IV anxiety Last administered on 06/12/18 15:28; Admin Dose 1 MG; Start 06/11/18 at 21:30 IV Flush (NS 10 ml) 10 ml PRN PRN IV IV PROTOCOL; Start 06/16/18 at 17:00 Methylnaltrexone [place] (Relistor) 12 mg Q48H SC ; Start 06/17/18 at 08:30 Phenol (Chloraseptic Throat [place]) 2 spray Q2H PRN MT SORE THROAT Last administered on 06/17/18at 21:23; Admin Dose 2 SPRAY; Start 06/17/18 at 11:30 Morphine Sulfate (morphine) 2 mg Q4H PRN IV SEVERE PAIN LEVEL 7-10 Last administered on 07/10/18 17:11; Admin Dose 2 MG; Start 06/21/18 at 21:00 Bisacodyl (Dulcolax Supp) 10 mg DAILY PRN [place] CONSTIPATION Last administered on 07/01/18 10:53; Admin Dose 10 MG; Start 06/25/18 at 12:00 Total Parenteral Nutrition 1,000 ml @ 60 mls/hr [id number] IV Last administered on 07/11/18 14:38; Admin Dose 60 MLS/HR; Start 06/26/18 at 20:00 Diphenhydramine HCl (Benadryl) 25 mg Q6H PRN IV ALLERGIC REACTION; Start 06/29/18 at 11:00 Prochlorperazine (Compazine Inj) 5 mg Q4H PRN IV NAUSEA AND/OR VOMITING Last administered on 07/10/18 11:57; Admin Dose 5 MG; Start 07/04/18 at 11:00 Ondansetron HCl 8 mg/Sodium Chloride 54 ml @ 216 mls/hr Q6H PRN IV NAUSEA AND/OR VOMITING Last administered on 07/05/18 23:18; Admin Dose 216 MLS/HR; Start 07/04/18 at 11:30 Famotidine (Pepcid Iv) 20 mg BID IV Last administered on 07/12/18 08:25; Admin Dose 20 MG; Start 07/05/18 at 11:00 Vancomycin HCl (Vanco Iv Per Pharmacy) VANCOMYCIN PER PHARMACY PER PROTOCOL XX ; Start 07/10/18 at 04:00 Meropenem/Sodium Chloride 50 ml @ 100 mls/hr Q12 IVPB Last administered on 07/12/18 08:26; Admin Dose 100 MLS/HR; Start 07/10/18 at 18:00 Caspofungin 50 mg/ Sodium Chloride 250 ml @ 250 mls/hr Q24H IVPB Last administered on 07/11/18 16:04; Admin Dose 250 MLS/HR; Start 07/11/18 at 17:00 Midazolam HCl 50 ml @ 1 mls/hr TITRATE IV Last administered on 07/12/18 03:52; Admin Dose 10 MLS/HR; Start 07/10/18 at 17:00 Fentanyl 100 ml @ 2.5 mls/hr TITRATE IV ; Start 07/10/18 at 17:00 Norepinephrine 32 mg/Sodium Chloride 250 ml @ 0.47 mls/hr TITRATE IV Last administered on 07/11/18 14:09; Admin Dose 11.72 MLS/HR; Start 07/10/18 at 19:30 Sodium Hypochlorite (Dakin'S (Dilute 40)) 1 applic DAILY IRR Last administered on 07/12/18 08:25; Admin Dose 1 APPLIC; Start 07/11/18 at 09:00 Vancomycin HCl 100 ml @ 100 mls/hr Q12H IVPB Last administered on 07/12/18at 08:22; Admin Dose 100 MLS/HR; Start 07/12/18 at 08:00; Status Hold Phenylephrine HCl 80 mg/Sodium Chloride 250 ml @ 18.75 mls/ hr TITRATE IV Last administered on 07/12/18at 10:12; Admin Dose 34.88 MLS/HR; Start 07/11/18 at 21:00 Miscellaneous Information (*Order Clarification Bulletin) please mix all gtts in nor... Q72H XX Last administered on 07/11/18at 20:44; Admin Dose 1 EA; Start 07/11/18 at 20:30 Dexamethasone 20 mg/Sodium Chloride 55 ml @ 252 mls/hr Q6H PRN IVPB ALLERGIC REACTION; Start 07/11/18 at 21:00 Epinephrine 4 mg/ Sodium Chloride 250 ml @ 0 mls/hr TITRATE IV Last administered on 07/12/18at 08:04; Admin Dose 15 MLS/HR; Start 07/11/18 at 21:00 Vasopressin 60 unit/Sodium Chloride 60 ml @ 1.2 mls/hr Q12H IV Last administered on 07/12/18at 07:30; Admin Dose 2.4 MLS/HR; Start 07/11/18 at 21:00 Insulin Aspart (Novolog Insulin Pen) (Adult SC Insulin - Moder... Q6 SC Last administered on 07/12/18at 00:38; Admin Dose 6 UNIT; Start 07/12/18 at 00:00 Miscellaneous Information 1 ea NOTE XX ; Start 07/11/18 at 21:30 Glucose (Glutose) 15 gm Q15M PRN PO DECREASED GLUCOSE; Start 07/11/18 at 21:30 Glucose (Glutose) 22.5 gm Q15M PRN PO DECREASED GLUCOSE; Start 07/11/18 at 21:30 Dextrose (D50w Syringe) 25 ml Q15M PRN IV DECREASED GLUCOSE; Start 07/11/18 at 21:30 Dextrose (D50w Syringe) 50 ml Q15M PRN IV DECREASED GLUCOSE; Start 07/11/18 at 21:30 Glucagon (Glucagen) 1 mg Q15M PRN IM DECREASED GLUCOSE; Start 07/11/18 at 21:30 Glucose (Glutose) 15 gm Q15M PRN BUCCAL DECREASED GLUCOSE; Start 07/11/18 at 2 1:30 Miscellaneous Information (*Order Clarification Bulletin) MEDICATION REQUIRES CLARIFICATI... Q8H XX Last administered on 07/12/18at 05:41; Admin Dose 1 EA; Start 07/11/18 at 22:30; Stop 07/13/18 at 22:29 Sodium Bicarbonate 150 meq/Sodium Chloride 1,150 ml @ 115 mls/hr Q10H IV Last administered on 07/12/18at 07:44; Admin Dose 115 MLS/HR; Start 07/12/18 at 07:30 Miscellaneous Information (*Rx Drug Level Order Reminder*) VANCO RANDOM W/ AM LABS... ONCE ONCE XX ; Start 07/13/18 at 05:00; Stop 07/13/18 at 05:01 EMILIA FLORES NP Jul 12, 2018 14:12
--- NOTE | 2018-07-12 14:29 | CONS ---
Assessment/Plan Assessment/Plan Hospital Course (Demo Recall) #gastric ca -biopsy from EGD and reports from outside facilities are c/w gastric ca signet ring features. unclear why pt thought it was ovarian ca, have called Dr Mcdonald's office as well to update him s/p Cycle 1 FOLFOX + herceptin -CHEMO STARTED 06/29/18, has completed the 46 hr infusion, next tx due 07/13/18. she is too critical for any further chemo and given sepsis she may not fully recover and agree with transition to palliative/comfort care. DNR -Dr Suarez also informed me she has motility issues due to tumor infiltration of stomach and stent will not allow her to eat. have communicated with Dr Calle if maybe a j tube can help. she had surgery but course was complicated by sepsis and yesterday she underwent incision and drainage of abdominal wall abscess. -It was explained to the patient that she has stage IV disease and metastatic gastric ca has a poor prognosis and low 5 year overall survival rate, stage Iv usually have at best 18 mos overall survival. given her young age we have been aggressive but at the outset her disease was very advanced at diagnosis -appropriate for palliative care -DNR. pt has extremely poor prognosis and will likely pass away during this adm ission Thank you Dr Lee and Dr Landeros for allowing us to participate in the care of this pleasant pt Consultation Date/Type/Reason Admit Date/Time Jun 10, 2018 at 18:42 Initial Consult Date 07/11/18 Type of Consult oncology Reason for Consultation gastric cancer Requesting Provider: ELMER LEE MD Date/Time of Note DATE: 07/12/18 TIME: 14:26 24 HR Interval Summary Free Text/Dictation pt currently doing very poorly . she is now on 4 pressors Exam/Review of Systems Exam Vitals Vital Signs Date Temp Pulse Resp B/P (MAP) Pulse Ox O2 O2 Flow FiO2 Time Delivery Rate 07/12/18 107 12:00 07/12/18 99.3 18 121/64 11:30 (83) 07/12/18 98 11:00 07/12/18 Mechanical 09:00 Ventilator 07/12/18 30 08:00 07/08/18 8.0 15:40 Intake and Output 07/11/18 07/11/18 07/12/18 1515:00 23:00 07:00 IntakeIntake Total 4594.25 ml 2643.22 ml 1890.63 ml OutputOutput Total 680 ml 500 ml 1160 ml BalanceBalance 3914.25 ml 2143.22 ml 730.63 ml Constitutional: non-verbal, other (critically ill) Psych: no complaints Head: normocephalic Eyes: nl conjunctiva ENMT: intubated Neck: supple Respiratory: diminished breath sounds Cardiovascular: regular rate and rhythm, other (tachycardic) Gastrointestinal: soft Musculoskeletal: nl extremities to inspection Results Result Diagram: 07/12/18 0500 07/12/18 0703 Results 24hrs Laboratory Tests Test 07/11/18 14:38 07/12/18 00:32 07/12/18 04:00 07/12/18 05:00 Vancomycin Level 18.4 Trough Bedside Glucose 253 H Lactic Acid 13.7 *H Level White Blood 0.5 L Count Red Blood Count 3.62 L Hemoglobin 10.3 L Hematocrit 29.2 L Mean Corpuscular 80.7 L Volume Mean Corpuscular 28.5 L Hemoglobin Mean Corpuscular 35.3 Hemoglobin Verito nt Red Cell 15.9 H Distribution Width Platelet Count 20 #*L Mean Platelet 9.6 Volume Immature 0.000 L Granulocytes % Neutrophils % Lymphocytes % Lymphocytes % 64 H (Manual) Reactive 28 H Lymphocytes % (Manual) Monocytes % Monocytes % 8 (Manual) Eosinophils % Basophils % Nucleated Red 544 H Blood Cells % Immature 0.000 Granulocytes # Neutrophils # Lymphocytes 0.3 L (Manual) Lymphocytes # Reactive 0.1 H Lymphocytes # Monocytes # Monocytes # 0.0 L (Manual) Eosinophils # Basophils # Nucleated Red Blood Cells # White Cell @See below Morphology Comment Platelet SIG DECREASED Estimate Giant Platelets 4 H Polychromasia 2+ Poikilocytosis 2+ Anisocytosis 1+ Target Cells 1+ Ovalocytes 1+ Red Cell @See below Morphology Comment Test 07/12/18 05:09 07/12/18 05:36 07/12/18 07:03 07/12/18 09:35 Lab Scanned BLOOD TRANSFUSI Report ON Bedside Glucose 127 Sodium Level 147 H Potassium Level 3.1 L Chloride Level 105 Carbon Dioxide 22 # Level Anion Gap 20 H Blood Urea 54 H Nitrogen Creatinine 1.74 H Est Glomerular 31 L Filtrat Rate mL/min Glucose Level 128 Calcium Level 5.6 *L Phosphorus Level 3.3 Magnesium Level 1.6 L Total Bilirubin 0.5 Direct Bilirubin 0.10 Indirect 0.4 Bilirubin Aspartate Amino 2170 H Transf (AST/SGOT ) Alanine 1951 H Aminotransferase (ALT/SGPT) Alkaline 89 # Phosphatase Total Protein 4.2 L Albumin 2.0 L Blood Gas Blood arterial Specimen Source Arterial Blood 07/12/2018 9:45: Date Drawn 00 AM Arterial Blood 7.484 H pH (Temp corrected) Arterial Blood 25.9 L pCO2 (Temp correct) Arterial Blood 117.7 H pO2 (Temp corrected) Arterial Blood 19.0 L HCO3 Arterial Blood -3.3 L Base Excess Arterial Blood 97.5 Oxygen Saturatio n Dionte Test N/A Arterial Blood A-Line Gas Puncture Site Arterial 0.2 Blood Carboxyhem oglobin Arterial Blood 0.4 Methemoglobin Blood Gas A-a O2 65.8 H Differential Oxyhemoglobin 96.9 Percent Blood Gas 37.0 Temperature Blood Gas 14.0 Respiration Rate Blood Gas Actual 19 Respiration Rate Blood Gas VENT - AC Modality FiO2 30.0 Blood Gas Tidal 550.0 Volume Blood Gas Low 5.0 PEEP Setting Blood Gas TM Notified Whom Blood Gas 07/12/2018 9:54: Notified Time 00 AM Test 07/12/18 09:49 07/12/18 11:41 Ionized Calcium 0.7 L (Measured) Bedside Glucose 131 Medications Medication Current Medications IV Flush (NS 3 ml) 3 ml PER PROTOCOL IV ; Start 06/10/18 at 18:00 Lorazepam (Ativan) 1 mg Q4H PRN IV anxiety Last administered on 06/12/18at 15:28; Admin Dose 1 MG; Start 06/11/18 at 21:30 IV Flush (NS 10 ml) 10 ml PRN PRN IV IV PROTOCOL; Start 06/16/18 at 17:00 Methylnaltrexone [place] (Relistor) 12 mg Q48H SC ; Start 06/17/18 at 08:30 Phenol (Chloraseptic Throat [place]) 2 spray Q2H PRN MT SORE THROAT Last administered on 06/17/18at 21:23; Admin Dose 2 SPRAY; Start 06/17/18 at 11:30 Morphine Sulfate (morphine) 2 mg Q4H PRN IV SEVERE PAIN LEVEL 7-10 Last administered on 07/10/18at 17:11; Admin Dose 2 MG; Start 06/21/18 at 21:00 Bisacodyl (Dulcolax Supp) 10 mg DAILY PRN [place] CONSTIPATION Last administered on 07/01/18 10:53; Admin Dose 10 MG; Start 06/25/18 at 12:00 Total Parenteral Nutrition 1,000 ml @ 60 mls/hr [id number] IV Last administered on 07/11/18at 14:38; Admin Dose 60 MLS/HR; Start 06/26/18 at 20:00 Diphenhydramine HCl (Benadryl) 25 mg Q6H PRN IV ALLERGIC REACTION; Start 06/29/18 at 11:00 Prochlorperazine (Compazine Inj) 5 mg Q4H PRN IV NAUSEA AND/OR VOMITING Last administered on 07/10/18 11:57; Admin Dose 5 MG; Start 07/04/18 at 11:00 Ondansetron HCl 8 mg/Sodium Chloride 54 ml @ 216 mls/hr Q6H PRN IV NAUSEA AND/OR VOMITING Last administered on 07/05/18at 23:18; Admin Dose 216 MLS/HR; Start 07/04/18 at 11:30 Famotidine (Pepcid Iv) 20 mg BID IV Last administered on 07/12/18 08:25; Admin Dose 20 MG; Start 07/05/18 at 11:00 Vancomycin HCl (Vanco Iv Per Pharmacy) VANCOMYCIN PER PHARMACY PER PROTOCOL XX ; Start 07/10/18 at 04:00 Meropenem/Sodium Chloride 50 ml @ 100 mls/hr Q12 IVPB Last administered on 07/12/18 08:26; Admin Dose 100 MLS/HR; Start 07/10/18 at 18:00 Caspofungin 50 mg/ Sodium Chloride 250 ml @ 250 mls/hr Q24H IVPB Last administered on 07/11/18 16:04; Admin Dose 250 MLS/HR; Start 07/11/18 at 17:00 Midazolam HCl 50 ml @ 1 mls/hr TITRATE IV Last administered on 07/12/18at 03:52; Admin Dose 10 MLS/HR; Start 07/10/18 at 17:00 Fentanyl 100 ml @ 2.5 mls/hr TITRATE IV ; Start 07/10/18 at 17:00 Norepinephrine 32 mg/Sodium Chloride 250 ml @ 0.47 mls/hr TITRATE IV Last administered on 07/11/18 14:09; Admin Dose 11.72 MLS/HR; Start 07/10/18 at 19:30 Sodium Hypochlorite (Dakin'S (Dilute )) 1 applic DAILY IRR Last administered on 07/12/18 08:25; Admin Dose 1 APPLIC; Start 07/11/18 at 09:00 Vancomycin HCl 100 ml @ 100 mls/hr Q12H IVPB Last administered on 07/12/18 08:22; Admin Dose 100 MLS/HR; Start 07/12/18 at 08:00; Status Hold Phenylephrine HCl 80 mg/Sodium Chloride 250 ml @ 18.75 mls/ hr TITRATE IV Last administered on 07/12/18 10:12; Admin Dose 34.88 MLS/HR; Start 07/11/18 at 21:00 Miscellaneous Information (*Order Clarification Bulletin) please mix all gtts in nor... Q72H XX Last administered on 07/11/18at 20:44; Admin Dose 1 EA; Start 07/11/18 at 20:30 Dexamethasone 20 mg/Sodium Chloride 55 ml @ 252 mls/hr Q6H PRN IVPB ALLERGIC REACTION; Start 07/11/18 at 21:00 Epinephrine 4 mg/ Sodium Chloride 250 ml @ 0 mls/hr TITRATE IV Last admi nistered on 07/12/18 08:04; Admin Dose 15 MLS/HR; Start 07/11/18 at 21:00 Vasopressin 60 unit/Sodium Chloride 60 ml @ 1.2 mls/hr Q12H IV Last administered on 07/12/18 07:30; Admin Dose 2.4 MLS/HR; Start 07/11/18 at 21:00 Insulin Aspart (Novolog Insulin Pen) (Adult SC Insulin - Moder... Q6 SC Last administered on 07/12/18 00:38; Admin Dose 6 UNIT; Start 07/12/18 at 00:00 Miscellaneous Information 1 ea NOTE XX ; Start 07/11/18 at 21:30 Glucose (Glutose) 15 gm Q15M PRN PO DECREASED GLUCOSE; Start 07/11/18 at 21:30 Glucose (Glutose) 22.5 gm Q15M PRN PO DECREASED GLUCOSE; Start 07/11/18 at 21:30 Dextrose (D50w Syringe) 25 ml Q15M PRN IV DECREASED GLUCOSE; Start 07/11/18 at 21:30 Dextrose (D50w Syringe) 50 ml Q15M PRN IV DECREASED GLUCOSE; Start 07/11/18 at 21:30 Glucagon (Glucagen) 1 mg Q15M PRN IM DECREASED GLUCOSE; Start 07/11/18 at 21:30 Glucose (Glutose) 15 gm Q15M PRN BUCCAL DECREASED GLUCOSE; Start 07/11/18 at 21:30 Miscellaneous Information (*Order Clarification Bulletin) MEDICATION REQUIRES CLARIFICATI... Q8H XX Last administered on 07/12/18at 05:41; Admin Dose 1 EA; Start 07/11/18 at 22:30; Stop 07/13/18 at 22:29 Sodium Bicarbonate 150 meq/Sodium Chloride 1,150 ml @ 115 mls/hr Q10H IV Last administered on 07/12/18at 07:44; Admin Dose 115 MLS/HR; Start 07/12/18 at 07:30 Miscellaneous Information (*Rx Drug Level Order Reminder*) VANCO BOLIVAR W/ AM LABS... ONCE ONCE XX ; Start 07/13/18 at 05:00; Stop 07/13/18 at 05:01 SHIVAM FUENTES M.D. Jul 12, 2018 14:29
[2018-07-12] MEDS: NORepinephrine 32 MG in SOD CHLORIDE 0.9% 218 ML IV SCH (14:44)
[2018-07-12] MEDS: TPN 1,000 ML IV SCH (14:46)
--- NOTE | 2018-07-12 16:12 | CONS ---
Assessment/Plan Assessment/Plan Hospital Course (Demo Recall) Severe septic shock Severe hypotension on IV pressor Respiratory failure Intra-abdominal abscess Ovarian cancer Low normal/mildly decreased left ventricular ejection fraction 45-50% Acute kidney injury -Titrate IV pressor to maintain SBP greater than 90 and/or map above 60 -Vent management as per pulmonary -Antibiotics as per infectious disease -IV fluids as needed -Patient has remained DNR, being seen by palliative care to decide goals of therapy -Greater than 34 minutes of critical care time taken in the care of this patient. Consultation Date/Type/Reason Admit Date/Time Jun 10, 2018 at 18:42 Initial Consult Date 07/11/18 Type of Consult Cardiology Requesting Provider: ELMER CAVAZOS MD Date/Time of Note DATE: 07/12/18 TIME: 16:07 24 HR Interval Summary Free Text/Dictation Patient remains intubated, on multiple pressors given hypotension. Urine output has slightly increased in discussion with nursing staff. Exam/Review of Systems Vital Signs Vitals Vital Signs Date Temp Pulse Resp B/P (MAP) Pulse Ox O2 O2 Flow FiO2 Time Delivery Rate 07/12/18 105 19 129/75 98 15:00 (93) 07/12/18 99.3 11:30 07/12/18 Mechanical 09:00 Ventilator 07/12/18 30 08:00 07/08/18 8.0 15:40 Intake and Output 07/11/18 07/11/18 07/12/18 1515:00 23:00 07:00 IntakeIntake Total 4594.25 ml 2643.22 ml 1890.63 ml OutputOutput Total 680 ml 500 ml 1160 ml BalanceBalance 3914.25 ml 2143.22 ml 730.63 ml Exam Exam Intubated and sedated, no apparent distress, nurse at bedside Head: normocephalic ENMT: intubated Respiratory: other (Coarse breath sounds bilaterally, no wheezing or rails) Cardiovascular: regular rate and rhythm (S1-S2 heard) Gastrointestinal: distended, other (Decreased bowel sounds, no grimacing with palpation) Genitourinary - Female: other (Ramsey present) Extremities: other (No significant edema) Labs Result Diagram: 07/12/18 0500 07/12/18 0703 Results 24hrs Laboratory Tests Test 07/12/18 00:32 07/12/18 04:00 07/12/18 05:00 07/12/18 05:09 Bedside Glucose 253 H Lactic Acid 13.7 *H Level White Blood 0.5 L Count Red Blood Count 3.62 L Hemoglobin 10.3 L Hematocrit 29.2 L Mean Corpuscular 80.7 L Volume Mean Corpuscular 28.5 L Hemoglobin Mean Corpuscular 35.3 Hemoglobin Verito nt Red Cell 15.9 H Distribution Width Platelet Count 20 #*L Mean Platelet 9.6 Volume Immature 0.000 L Granulocytes % Neutrophils % Lymphocytes % Lymphocytes % 64 H (Manual) Reactive 28 H Lymphocytes % (Manual) Monocytes % Monocytes % 8 (Manual) Eosinophils % Basophils % Nucleated Red 544 H Blood Cells % Immature 0.000 Granulocytes # Neutrophils # Lymphocytes 0.3 L (Manual) Lymphocytes # Reactive 0.1 H Lymphocytes # Monocytes # Monocytes # 0.0 L (Manual) Eosinophils # Basophils # Nucleated Red Blood Cells # White Cell @See below Morphology Comment Platelet SIG DECREASED Estimate Giant Platelets 4 H Polychromasia 2+ Poikilocytosis 2+ Anisocytosis 1+ Target Cells 1+ Ovalocytes 1+ Red Cell @See below Morphology Comment Lab Scanned BLOOD TRANSFUSI Report ON Test 07/12/18 05:36 07/12/18 07:03 07/12/18 09:35 07/12/18 09:49 Bedside Glucose 127 Sodium Level 147 H Potassium Level 3.1 L Chloride Level 105 Carbon Dioxide 22 # Level Anion Gap 20 H Blood Urea 54 H Nitrogen Creatinine 1.74 H Est Glomerular 31 L Filtrat Rate mL/min Glucose Level 128 Calcium Level 5.6 *L Phosphorus Level 3.3 Magnesium Level 1.6 L Total Bilirubin 0.5 Direct Bilirubin 0.10 Indirect 0.4 Bilirubin Aspartate Amino 2170 H Transf (AST/SGOT ) Alanine 1951 H Aminotransferase (ALT/SGPT) Alkaline 89 # Phosphatase Total Protein 4.2 L Albumin 2.0 L Blood Gas Blood arterial Specimen Source Arterial Blood 07/12/2018 9:45: Date Drawn 00 AM Arterial Blood 7.484 H pH (Temp corrected) Arterial Blood 25.9 L pCO2 (Temp correct) Arterial Blood 117.7 H pO2 (Temp corrected) Arterial Blood 19.0 L HCO3 Arterial Blood -3.3 L Base Excess Arterial Blood 97.5 Oxygen Saturatio n Dionte Test N/A Arterial Blood A-Line Gas Puncture Site Arterial 0.2 Blood Carboxyhem oglobin Arterial Blood 0.4 Methemoglobin Blood Gas A-a O2 65.8 H Differential Oxyhemoglobin 96.9 Percent Blood Gas 37.0 Temperature Blood Gas 14.0 Respiration Rate Blood Gas Actual 19 Respiration Rate Blood Gas VENT - AC Modality FiO2 30.0 Blood Gas Tidal 550.0 Volume Blood Gas Low 5.0 PEEP Setting Blood Gas TM Notified Whom Blood Gas 07/12/2018 9:54: Notified Time 00 AM Ionized Calcium 0.7 L (Measured) Test 07/12/18 11:41 Bedside Glucose 131 Medications Medications Current Medications IV Flush (NS 3 ml) 3 ml PER PROTOCOL IV ; Start 06/10/18 at 18:00 Lorazepam (Ativan) 1 mg Q4H PRN IV anxiety Last administered on 06/12/18 15:28; Admin Dose 1 MG; Start 06/11/18 at 21:30 IV Flush (NS 10 ml) 10 ml PRN PRN IV IV PROTOCOL; Start 06/16/18 at 17:00 Methylnaltrexone [place] (Relistor) 12 mg Q48H SC ; Start 06/17/18 at 08:30 Phenol (Chloraseptic Throat [place]) 2 spray Q2H PRN [place] SORE THROAT Last administered on 06/17/18 21:23; Admin Dose 2 SPRAY; Start 06/17/18 at 11:30 Morphine Sulfate (morphine) 2 mg Q4H PRN IV SEVERE PAIN LEVEL 7-10 Last administered on 07/10/18 17:11; Admin Dose 2 MG; Start 06/21/18 at 21:00 Bisacodyl (Dulcolax Supp) 10 mg DAILY PRN [place] CONSTIPATION Last administered on 07/01/18 10:53; Admin Dose 10 MG; Start 06/25/18 at 12:00 Total Parenteral Nutrition 1,000 ml @ 60 mls/hr [id number] IV Last administered on 07/12/18 14:46; Admin Dose 60 MLS/HR; Start 06/26/18 at 20:00 Diphenhydramine HCl (Benadryl) 25 mg Q6H PRN IV ALLERGIC REACTION; Start 06/29/18 at 11:00 Prochlorperazine (Compazine Inj) 5 mg Q4H PRN IV NAUSEA AND/OR VOMITING Last administered on 07/10/18 11:57; Admin Dose 5 MG; Start 07/04/18 at 11:00 Ondansetron HCl 8 mg/Sodium Chloride 54 ml @ 216 mls/hr Q6H PRN IV NAUSEA AND/OR VOMITING Last administered on 07/05/18 23:18; Admin Dose 216 MLS/HR; Start 07/04/18 at 11:30 Famotidine (Pepcid Iv) 20 mg BID IV Last administered on 07/12/18 08:25; Admin Dose 20 MG; Start 07/05/18 at 11:00 Vancomycin HCl (Vanco Iv Per Pharmacy) VANCOMYCIN PER PHARMACY PER PROTOCOL XX ; Start 07/10/18 at 04:00 Meropenem/Sodium Chloride 50 ml @ 100 mls/hr Q12 IVPB Last administered on 07/12/18 08:26; Admin Dose 100 MLS/HR; Start 07/10/18 at 18:00 Caspofungin 50 mg/ Sodium Chloride 250 ml @ 250 mls/hr Q24H IVPB Last administered on 07/11/18 16:04; Admin Dose 250 MLS/HR; Start 07/11/18 at 17:00 Midazolam HCl 50 ml @ 1 mls/hr TITRATE IV Last administered on 07/12/18 03:52; Admin Dose 10 MLS/HR; Start 07/10/18 at 17:00 Fentanyl 100 ml @ 2.5 mls/hr TITRATE IV ; Start 07/10/18 at 17:00 Norepinephrine 32 mg/Sodium Chloride 250 ml @ 0.47 mls/hr TITRATE IV Last administered on 07/12/18 14:44; Admin Dose 11.25 MLS/HR; Start 07/10/18 at 19:30 Sodium Hypochlorite (Dakin'S (Dilute 1/40)) 1 applic DAILY IRR Last administered on 07/12/18 08:25; Admin Dose 1 APPLIC; Start 07/11/18 at 09:00 Vancomycin HCl 100 ml @ 100 mls/hr Q12H IVPB Last administered on 07/12/18 08:22; Admin Dose 100 MLS/HR; Start 07/12/18 at 08:00; Status Hold Phenylephrine HCl 80 mg/Sodium Chloride 250 ml @ 18.75 mls/ hr TITRATE IV Last administered on 3/12/19at 10:12; Admin Dose 34.88 MLS/HR; Start 07/11/18 at 21:0 0 Miscellaneous Information (*Order Clarification Bulletin) please mix all gtts in nor... Q72H XX Last administered on 07/11/18at 20:44; Admin Dose 1 EA; Start 07/11/18 at 20:30 Dexamethasone 20 mg/Sodium Chloride 55 ml @ 252 mls/hr Q6H PRN IVPB ALLERGIC REACTION; Start 07/11/18 at 21:00 Epinephrine 4 mg/ Sodium Chloride 250 ml @ 0 mls/hr TITRATE IV Last administered on 07/12/18at 14:00; Admin Dose 11.25 MLS/HR; Start 07/11/18 at 21:00 Vasopressin 60 unit/Sodium Chloride 60 ml @ 1.2 mls/hr Q12H IV Last administered on 07/12/18at 07:30; Admin Dose 2.4 MLS/HR; Start 07/11/18 at 21:00 Insulin Aspart (Novolog Insulin Pen) (Adult SC Insulin - Moder... Q6 SC Last administered on 07/12/18at 00:38; Admin Dose 6 UNIT; Start 07/12/18 at 00:00 Miscellaneous Information 1 ea NOTE XX ; Start 07/11/18 at 21:30 Glucose (Glutose) 15 gm Q15M PRN PO DECREASED GLUCOSE; Start 07/11/18 at 21:30 Glucose (Glutose) 22.5 gm Q15M PRN PO DECREASED GLUCOSE; Start 07/11/18 at 21:30 Dextrose (D50w Syringe) 25 ml Q15M PRN IV DECREASED GLUCOSE; Start 07/11/18 at 21:30 Dextrose (D50w Syringe) 50 ml Q15M PRN IV DECREASED GLUCOSE; Start 07/11/18 at 21:30 Glucagon (Glucagen) 1 mg Q15M PRN IM DECREASED GLUCOSE; Start 07/11/18 at 21:30 Glucose (Glutose) 15 gm Q15M PRN BUCCAL DECREASED GLUCOSE; Start 07/11/18 at 21:30 Miscellaneous Information (*Order Clarification Bulletin) MEDICATION REQUIRES CLARIFICATI... Q8H XX Last administered on 07/12/18at 05:41; Admin Dose 1 EA; Start 07/11/18 at 22:30; Stop 07/13/18 at 22:29 Sodium Bicarbonate 150 meq/Sodium Chloride 1,150 ml @ 115 mls/hr Q10H IV Last administered on 07/12/18at 07:44; Admin Dose 115 MLS/HR; Start 07/12/18 at 07:30 Miscellaneous Information (*Rx Drug Level Order Reminder*) VANCO [place] W/ AM LABS... ONCE ONCE XX ; Start 07/13/18 at 05:00; Stop 07/13/18 at 05:01 Lobo Duckworth DO Jul 12, 2018 16:12
[2018-07-12] MEDS: CASPOFUNGIN 50 MG in SOD CHLORIDE 0.9% 250 ML IVPB SCH (17:28)
[2018-07-13] VITALS (105 sets, daily range): BP systolic 87–139; BP diastolic 47–84; PULSE 80–100; RESP 14–19
[2018-07-13] MEDS: Insulin NOVOLOG SS MODERATE Algorithm(NPO/TPN/ENTERAL FEEDS) SC SCH ×5 (00:34→23:41)
[2018-07-13] MEDS: MIDAZOLAM (DRIP) 50 mg/50 mL 50 ML IV SCH (03:08)
[2018-07-13] MEDS: SODIUM BICARBONATE (IV ADD) 150 MEQ in SOD CHLORIDE 0.9% 1,000 ML IV SCH (03:57)
[2018-07-13] MEDS: POTASSIUM CHLORIDE 100 ML IVPB SCH ×5 (07:31→22:00)
--- NOTE | 2018-07-13 07:40 | PN ---
Date/Time of Note Date/Time of Note DATE: 07/13/18 TIME: 07:27 Assessment/Plan Lines/Catheters IV Catheter Type (from [facility]): Saline Lock Ramsey in Place (from [facility]): Yes Assessment/Plan Chief Complaint/Hosp Course 1. CT with emphysematous gastritis, portal venous air, thickening of pylorus and duodenal bulb, thick-walled gallbladder, mesenteric inflammation in the upper abdomen with free fluid. Repeat CT noted with improvement of emphysematous gastritis; EGD w stent placement 06/21/18; 04/06/19 status post gastrojejunostomy, resection of right ovarian mass and partial omentectomy at [facility] by . UGI noted with patent stent but continues to have intermittent vomiting. s/p Lap feeding tube, however frozen abdomen and intestines plastered to abdominal wall and initial trocar directly entered into bowel and used as feeding tube site. Contrast study did not identify leak and therefore feeding tube was placed at the site. Patient with persistent tachycardia and now hypotension taken to OR 3/10 and found significant infection, abscess, necrosis left abdominal wall s/p I&D&D. Intra- abdominally locally no acute issues besides adhesions. Patient initially better but worsening on 4 pressors and family has made her DNR. -continue drain/ngt -Continue iv abx/antifungals -Continue fluids/supportive/pressor support/acid-balance correction -medical management -consider repeat ct when more stable> will probably not change control coordinator since no further surgical treatments 2. 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 Previous history of perforated duodenal ulcer and obstruction favors site of primary tumor in the upper GI tract. -Per oncology> status post chemo cycle 1; subsequent chemo cycles per oncology 3. Pancytopenia, with possible dic2nd sepsis, -supportive and tx prn 4. Poor nutrition: TPN -As above 5. Sepsis with shock, multi-organ failure, worsening lactic acidosis; currently on multiple pressor support -as above 6. Renal insufficiency -as above -minimize nephrotoxic agents as possible Thank you. Patient seen and examined in collaboration with Dr. Ag Calle. Subjective 24 Hr Interval Summary Continues in ICU care, intubated and on multiple pressor support. Pressors titrated down. Drainage from around feeding tube. Continues to have mod output from NGT. +mucoid stool overnight. Appears comfortable. Nonverbal indicators of pain not present. No fevers, congested cough, dysrhythmias, labored breathing, sz, rash, vomiting, diarrhea. Exam/Review of Systems Vital Signs Vitals Vital Signs Date Temp Pulse Resp B/P (MAP) Pulse Ox O2 O2 Flow FiO2 Time Delivery Rate 07/13/18 98 15 100 30 05:18 07/13/18 123/73 Mechanical 04:45 (90) Ventilator 07/13/18 98.3 04:00 Intake and Output 07/12/18 07/12/18 07/13/18 1515:00 23:00 07:00 IntakeIntake Total 1866.30 ml 2117.97 ml 813.05 ml OutputOutput Total 810 ml 1715 ml 620 ml BalanceBalance 1056.30 ml 402.97 ml 193.05 ml Exam Free Text/Dictation Constitutional: ventilated, frail Psych: ventilated Head: normocephalic, atraumatic Eyes: nl conjunctiva, No icteric ENMT: nl external ears & nose, nl lips & teeth, mucosa pink and moist; ETT, ngt Neck: supple, non-tender; No jvd Respiratory: normal air movement; symmetrical chest rise No congested cough, No wheezing Cardiovascular: rrr, sr Gastrointestinal: soft, tender, feeding tube (drainage around tube), less rigid, LUQ wound clean-packed; ecchymosis left lower side; missy serosang Musculoskeletal: nl extremities to inspection; No joint tenderness Extremities: normal pulses; gen edema No calf tenderness, Neurological: ventilated Skin: nl turgor; left flank to upper medial thigh ecchymosis No rash or lesions, No diaphoresis Lymph: nl lymph nodes Results Result Diagram: 07/13/1844807/13/18448 IVELISSE CEJA NP Jul 13, 2018 07:39
[2018-07-13] MEDS ORDERED: POTASSIUM CHLORIDE IV SCH (08:00)
[2018-07-13] MEDS ORDERED: SODIUM BICARBONATE IV SCH (08:00)
[2018-07-13] MEDS ORDERED: [UNRECOGNIZED DRUG - OTHER] IV SCH (08:00)
[2018-07-13] MEDS: SODIUM HYPOCHLORITE (1/40) 1 APPLIC BTL IRR SCH (08:18)
[2018-07-13] MEDS: FAMOTIDINE 20 MG INJ IV SCH ×2 (08:18→21:16)
[2018-07-13] MEDS: DEXTROSE 5% 1,000 ML IV SCH ×2 (08:18→21:22)
--- NOTE | 2018-07-13 08:26 | PN ---
DATE: 07/13/2018 SUBJECTIVE: The patient remains critically ill. The patient remains on 4 pressors. Urinary output has been adequate. No other acute events noted. No hemoptysis, hematemesis or hematochezia. OBJECTIVE: VITAL SIGNS: Blood pressure is 126/75, respirations 15, pulse 96, temperature 98.7. HEENT: Head is normocephalic. NECK: Supple. HEART: Regular rate. LUNGS: Show diminished breath sounds at the base. ABDOMEN: Soft, nontender to palpation without rebound or guarding. EXTREMITIES: Negative for clubbing, cyanosis. Trace edema. DERMATOLOGIC: No rashes. MUSCULOSKELETAL: No joint effusion. NEUROLOGIC: No change in exam. MEDICATIONS: Reviewed. LABORATORY DATA: Shows sodium 142, potassium 2.6, BUN 57, creatinine 1.64, calcium 6.0. White count 2.0, hemoglobin 10.2, platelet count is . ABG shows pH 7.484, pCO2 of 25. The patient's microbiolo gy was reviewed. IMAGING: Chest x-ray was reviewed. ASSESSMENT AND PLAN: 1. Nonoliguric acute kidney injury with previously normal baseline creatinine. Etiology of acute ki dney injury is secondary to acute tubular necrosis due to sepsis, shock. The patient is currently in maintenance phase of acute tubular necrosis. His renal function has stabilized the last 24 hours. Urinary output has been adequate. At this point, continue current medical management. Continue pres sor support, maintain MAP of 65. Continue IV fluids, antibiotic therapy. We will monitor closely. The patient is not a candidate for hemodialysis. 2. Hypernatremia. The patient has a free water deficit of approximately 3-1/2 liters. Will adjust IV fluids. Will discontinue bicarbonate drip, start the patient on hypotonic half NS. We will monit or serial sodium levels closely. 3. Mixed acid base disorder. The patient has a metabolic alkalemia, respiratory acidosis and metabo lic acidosis. Plan at this point is to discontinue bicarbonate drip. Will continue to monitor seria l ABGs closely. 4. Hyperkalemia. Etiology is multifactorial secondary to alkalemia causing transcellular potassium shift in conjunction with total body deficit. Plan is to discontinue bicarbonate drip. Continue pot assium supplementation. Will monitor potassium levels closely. 5. Pancytopenia, anemia. Will continue to monitor. Etiology is from sepsis, chemotherapy. 6. Mineral bone disorder. The patient remains hypocalcemic. Will give calcium gluconate. 7. Ventilator-dependent respiratory failure. Vent settings and ABG was reviewed. Continue to monit or. 8. Acute encephalopathy. Etiology is toxic metabolic. 9. Intraabdominal abscess, status post surgical debridement. Continue medical management. Follow u p with general surgery. 10. Tachyarrhythmia. Continue to monitor. 11. Metastatic gastric carcinoma. The patient is status post chemotherapy. 12. Nutrition. Continue TPN. 13. Decubitus ulcer disease. Continue proton pump inhibitor. Please note I spent over 30 minutes of critical care time with this patient. Please note patient has overall very poor prognosis. Dictated By: BRAYDEN RED DO NR/NTS Conf#: [id number] DID#: [id number] CC: ELMER CAVAZOS MD;*EndCC*
[2018-07-13] MEDS: MEROPENEM 500MG/50 ML (PMX) 50 ML IVPB SCH ×2 (08:27→21:17)
[2018-07-13] MEDS: METHYLNALTREXONE 12 MG/0.6 ML VIAL SC SCH (08:30)
[2018-07-13] MEDS: TPN 1,000 ML IV SCH ×2 (08:35→11:47)
[2018-07-13] MEDS ORDERED: FENTAnyl (DRIP) 1000 mcg/100mL 100 ML IV SCH (09:00)
[2018-07-13] MEDS ORDERED: MAGNESIUM SULFATE 2 GM/50 ML 50 ML IVPB ONE (09:00)
--- NOTE | 2018-07-13 09:00 | CONS ---
Consult Date/Type/Reason Admit Date/Time Jun 10, 2018 at 18:42 Initial Consult Date 07/11/18 Type of Consult Pulmonary Requesting Provider: ELMER CAVAZOS MD Date/Time of Note DATE: 07/13/18 TIME: 08:58 Subjective Patient continues multiple vasopressors remains largely somnolent on mechanical ventilation. Objective Vital Signs Date Temp Pulse Resp B/P (MAP) Pulse Ox O2 O2 Flow FiO2 Time Delivery Rate 07/13/18 94 15 120/69 08:45 (86) 07/13/18 30 08:00 07/13/18 98.5 Mechanical 07:45 Ventilator 07/13/18 100 06:45 Intake and Output 07/12/18 07/12/18 07/13/18 1515:00 23:00 07:00 IntakeIntake Total 1866.30 ml 2117.97 ml 1142.60 ml OutputOutput Total 810 ml 1715 ml 1005 ml BalanceBalance 1056.30 ml 402.97 ml 137.60 ml Exam GENERAL: Well-nourished well-developed lady somnolent on mechanical ventilation orally intubated VITAL SIGNS: per chart NECK: Supple. No JVD or lymphadenopathy. CARDIAC EXAM: S1, S2. No added sounds or murmurs. CHEST: clear bilaterally, No added sounds, rales or wheezes ABDOMEN: Soft, nontender. No guarding or rebound. Diminished bowel sounds EXTREMITIES: No cyanosis, clubbing or edema. NEUROLOGIC: Generalized weakness. Vent Setting Ventilator Support Mode: AC Fraction of Inspired Oxygen pe: 30 Positive End Expiratory Pressu: 5.0 Results/Medications Result Diagram: 07/13/18 0449 07/13/18 0449 Results 24 hrs Laboratory Tests Test 07/12/18 09:35 07/12/18 09:49 07/12/18 11:41 07/12/18 17:39 Blood Gas Blood arterial Specimen Source Arterial Blood 07/12/2018 9:45:0 Date Drawn 0 AM Arterial Blood pH 7.484 H (Temp corrected) Arterial Blood 25.9 L pCO2 (Temp correct) Arterial Blood 117.7 H pO2 (Temp corrected) Arterial Blood 19.0 L HCO3 Arterial Blood -3.3 L Base Excess Arterial Blood 97.5 Oxygen Saturation Dionte Test N/A Arterial Blood A-Line Gas Puncture Site Arterial 0.2 Blood Carboxyhemo globin Arterial Blood 0.4 Methemoglobin Blood Gas A-a O2 65.8 H Differential Oxyhemoglobin 96.9 Percent Blood Gas 37.0 Temperature Blood Gas 14.0 Respiration Rate Blood Gas Actual 19 Respiration Rate Blood Gas VENT - AC Modality FiO2 30.0 Blood Gas Tidal 550.0 Volume Blood Gas Low 5.0 PEEP Setting Blood Gas TM Notified Whom Blood Gas 07/12/2018 9:54:0 Notified Time 0 AM Ionized Calcium 0.7 L (Measured) Bedside Glucose 131 69 L Test 07/12/18 17:56 07/13/18 00:27 07/13/18 04:49 07/13/18 06:01 Bedside Glucose 101 171 139 White Blood Count 2.0 #L Red Blood Count 3.54 L Hemoglobin 10.2 L Hematocrit 28.9 L Mean Corpuscular 81.6 L Volume Mean Corpuscular 28.8 L Hemoglobin Mean Corpuscular 35.3 Hemoglobin Concen t Red Cell 16.1 H Distribution Width Platelet Count 17 *L Mean Platelet Volume Immature 2.000 H Granulocytes % Neutrophils % Lymphocytes % Monocytes % Eosinophils % Basophils % Nucleated Red 5.4 H Blood Cells % Immature 0.040 H Granulocytes # Neutrophils # Lymphocytes # Monocytes # Eosinophils # Basophils # Nucleated Red Blood Cells # Sodium Level 152 H Potassium Level 2.6 *L Chloride Level 105 Carbon Dioxide 29 Level Anion Gap 18 H Blood Urea 57 H Nitrogen Creatinine 1.64 H Est Glomerular 33 L Filtrat Rate mL/min Glucose Level 136 Calcium Level 6.0 L Phosphorus Level 3.5 Magnesium Level 1.7 Random Vancomycin 16.9 Level Medications Current Medications IV Flush (NS 3 ml) 3 ml PER PROTOCOL IV ; Start 06/10/18 at 18:00 Lorazepam (Ativan) 1 mg Q4H PRN IV anxiety Last administered on 06/12/18at 15:28; Admin Dose 1 MG; Start 06/11/18 at 21:30 IV Flush (NS 10 ml) 10 ml PRN PRN IV IV PROTOCOL; Start 06/16/18 at 17:00 Methylnaltrexone [place] (Relistor) 12 mg Q48H SC ; Start 06/17/18 at 08:30 Phenol (Chloraseptic Throat [place]) 2 spray Q2H PRN [place] SORE THROAT Last administered on 06/17/18at 21:23; Admin Dose 2 SPRAY; Start 06/17/18 at 11:30 Morphine Sulfate (morphine) 2 mg Q4H PRN IV SEVERE PAIN LEVEL 7-10 Last administered on 07/10/18 17:11; Admin Dose 2 MG; Start 06/21/18 at 21:00 Bisacodyl (Dulcolax Supp) 10 mg DAILY PRN [place] CONSTIPATION Last administered on 07/01/18 10:53; Admin Dose 10 MG; Start 06/25/18 at 12:00 Total Parenteral Nutrition 1,000 ml @ 60 mls/hr [id number] IV Last administered on 07/13/18 08:35; Admin Dose 60 MLS/HR; Start 06/26/18 at 20:00 Diphenhydramine HCl (Benadryl) 25 mg Q6H PRN IV ALLERGIC REACTION; Start 06/29/18 at 11:00 Prochlorperazine (Compazine Inj) 5 mg Q4H PRN IV NAUSEA AND/OR VOMITING Last administered on 07/10/18 11:57; Admin Dose 5 MG; Start 07/04/18 at 11:00 Ondansetron HCl 8 mg/Sodium Chloride 54 ml @ 216 mls/hr Q6H PRN IV NAUSEA AND/OR VOMITING Last administered on 07/05/18 23:18; Admin Dose 216 MLS/HR; Start 07/04/18 at 11:30 Famotidine (Pepcid Iv) 20 mg BID IV Last administered on 07/13/18 08:18; Admin Dose 20 MG; Start 07/05/18 at 11:00 Vancomycin HCl (Vanco Iv Per Pharmacy) VANCOMYCIN PER PHARMACY PER PROTOCOL XX ; Start 07/10/18 at 04:00 Meropenem/Sodium Chloride 50 ml @ 100 mls/hr Q12 IVPB Last administered on 07/13/18 08:27; Admin Dose 100 MLS/HR; Start 07/10/18 at 18:00 Caspofungin 50 mg/ Sodium Chloride 250 ml @ 250 mls/hr Q24H IVPB Last administ ered on 07/12/18 17:28; Admin Dose 250 MLS/HR; Start 07/11/18 at 17:00 Fentanyl 100 ml @ 2.5 mls/hr TITRATE IV ; Start 07/10/18 at 17:00 Norepinephrine 32 mg/Sodium Chloride 250 ml @ 0.47 mls/hr TITRATE IV Last administered on 07/12/18 14:44; Admin Dose 11.25 MLS/HR; Start 07/10/18 at 19:30 Sodium Hypochlorite ([place] (Dilute )) 1 applic DAILY IRR Last administered on 07/13/18 08:18; Admin Dose 1 APPLIC; Start 07/11/18 at 09:00 Vancomycin HCl 100 ml @ 100 mls/hr Q12H IVPB Last administered on 07/12/18 08:22; Admin Dose 100 MLS/HR; Start 07/12/18 at 08:00; Status Hold Phenylephrine HCl 80 mg/Sodium Chloride 250 ml @ 18.75 mls/ hr TITRATE IV Last administered on 07/12/18 22:10; Admin Dose 15 MLS/HR; Start 07/11/18 at 21:00 Miscellaneous Information (*Order Clarification Bulletin) please mix all gtts in nor... Q72H XX Last administered on 07/11/18 20:44; Admin Dose 1 EA; Start 07/11/18 at 20:30 Dexamethasone 20 mg/Sodium Chloride 55 ml @ 252 mls/hr Q6H PRN IVPB ALLERGIC REACTION; Start 07/11/18 at 21:00 Epinephrine 4 mg/ Sodium Chloride 250 ml @ 0 mls/hr TITRATE IV Last administered on 07/12/18 14:00; Admin Dose 11.25 MLS/HR; Start 07/11/18 at 21:00 Vasopressin 60 unit/Sodium Chloride 60 ml @ 1.2 mls/hr Q12H IV Last administered on 07/12/18 17:53; Admin Dose 2.4 MLS/HR; Start 07/11/18 at 21:00 Insulin Aspart (Novolog Insulin Pen) (Adult SC Insulin - Moder... Q6 SC Last administered on 07/13/18 00:34; Admin Dose 2 UNIT; Start 07/12/18 at 00:00 Miscellaneous Information 1 ea NOTE XX Last administered on 07/12/18 17:40; Admin Dose 1 EA; Start 07/11/18 at 21:30 Glucose (Glutose) 15 gm Q15M PRN PO DECREASED GLUCOSE; Start 07/11/18 at 21:30 Glucose (Glutose) 22.5 gm Q15M PRN PO DECREASED GLUCOSE; Start 07/11/18 at 21:30 Dextrose (D50w Syringe) 25 ml Q15M PRN IV DECREASED GLUCOSE; Start 07/11/18 at 21:30 Dextrose (D50w Syringe) 50 ml Q15M PRN IV DECREASED GLUCOSE; Start 07/11/18 at 21:30 Glucagon (Glucagen) 1 mg Q15M PRN IM DECREASED GLUCOSE; Start 07/11/18 at 21:30 Glucose (Glutose) 15 gm Q15M PRN BUCCAL DECREASED GLUCOSE; Start 07/11/18 at 21:30 Miscellaneous Information (*Order Clarification Bulletin) MEDICATION REQUIRES CLARIFICATI... Q8H XX Last administered on 07/13/18at 06:04; Admin Dose 1 EA; Start 07/11/18 at 22:30; Stop 07/13/18 at 22:29 Potassium Chloride 100 ml @ 50 mls/hr Q2H IVPB Last administered on 07/13/18at 07:31; Admin Dose 50 MLS/HR; Start 07/13/18 at 06:30; Stop 07/13/18 at 10:29 Magnesium Sulfate 50 ml @ 25 mls/hr ONCE ONCE IVPB Last administered on 07/13/18at 08:31; Admin Dose 25 MLS/HR; Start 07/13/18 at 09:00; Stop 07/13/18 at 10:59 Calcium Gluconate 1 gm/Dextrose 110 ml @ 110 mls/hr ONCE ONCE IVPB ; Start 07/13/18 at 10:00; Stop 07/13/18 at 10:59 Dextrose 1,000 ml @ 75 mls/hr [id number] IV Last administered on 07/13/18at 08:18; Admin Dose 75 MLS/HR; Start 07/13/18 at 08:00 Hydrocortisone (Solu-Cortef) 100 mg Q8 IV ; Start 07/13/18 at 14:00 Fentanyl 100 ml @ 2.5 mls/hr TITRATE IV ; Start 07/13/18 at 09:00; Status UNV Assessment/Plan Hospital Course (Demo Recall) Assessment 1. Refractory septic shock 2. Status post exploratory laparotomy with lysis of adhesions 3. Ovarian and gastric CA 4. Pancytopenia 5. Renal insufficiency with hyper natremia Plan 1. Continue vasopressors 2. Trial stress dose steroids 3. Continue broad-spectrum antibiotic coverage 4. Consider increasing free water 5. Renal recommendations Overall prognosis extremely poor Critical care time 40 minutes EDY NOBLES MD, [facility] Jul 13, 2018 09:00
[2018-07-13] MEDS ORDERED: CALCIUM GLUCONATE 10% 1 GM in DEXTROSE 5% 100 ML IVPB ONE (10:00)
--- NOTE | 2018-07-13 12:58 | CONS ---
Assessment/Plan Assessment/Plan Hospital Course (Demo Recall) Severe septic shock Severe hypotension on IV pressor Respiratory failure Intra-abdominal abscess Ovarian cancer Low normal/mildly decreased left ventricular ejection fraction 45-50% Acute kidney injury -Titrate IV pressor to maintain SBP greater than 90 and/or map above 60 -Vent management as per pulmonary -Antibiotics as per infectious disease -IV fluids as needed -Potassium and magnesium supplementation is already been ordered -Patient is currently DNR, being seen by palliative care to decide goals of therapy -Poor prognosis -Greater than 34 minutes of critical care time taken in the care of this patient. Consultation Date/Type/Reason Admit Date/Time Jun 10, 2018 at 18:42 Initial Consult Date 07/11/18 Type of Consult Cardiology Requesting Provider: ELMER CAVAZOS MD Date/Time of Note DATE: 07/13/18 TIME: 12:56 24 HR Interval Summary Free Text/Dictation In discussion with nursing staff, patient currently on for IV pressors, not tolerating any decrease in IV pressors. Urine output has been labile. Exam/Review of Systems Vital Signs Vitals Vital Signs Date Temp Pulse Resp B/P (MAP) Pulse Ox O2 O2 Flow FiO2 Time Delivery Rate 07/13/18 88 14 114/66 Mechanical 12:45 (82) Ventilator 07/13/18 99.2 12:00 07/13/18 30 08:00 07/13/18 100 06:45 Intake and Output 07/12/18 07/12/18 07/13/18 1515:00 23:00 07:00 IntakeIntake Total 1866.30 ml 2117.97 ml 1142.60 ml OutputOutput Total 810 ml 1715 ml 1005 ml BalanceBalance 1056.30 ml 402.97 ml 137.60 ml Exam Exam No apparent distress, no response to verbal stimuli, intubated Head: normocephalic ENMT: intubated Respiratory: other (Coarse breath sounds bilaterally, no wheezing) Cardiovascular: regular rate and rhythm (S1-S2 heard) Gastrointestinal: distended, other (Hypoactive bowel sounds, no grimacing with palpation) Genitourinary - Female: other ([place] present) Extremities: other (Trace edema) Labs Result Diagram: 07/13/18 0449 07/13/18 0449 Results 24hrs Laboratory Tests Test 07/12/18 17:39 07/12/18 17:56 07/13/18 00:27 07/13/18 04:49 Bedside Glucose 69 L 101 171 White Blood Count 2.0 #L Red Blood Count 3.54 L Hemoglobin 10.2 L Hematocrit 28.9 L Mean Corpuscular 81.6 L Volume Mean Corpuscular 28.8 L Hemoglobin Mean Corpuscular 35.3 Hemoglobin Concent Red Cell 16.1 H Distribution Width Platelet Count 17 *L Mean Platelet Volume Immature 2.000 H Granulocytes % Neutrophils % Lymphocytes % Monocytes % Eosinophils % Basophils % Nucleated Red Blood 5.4 H Cells % Immature 0.040 H Granulocytes # Neutrophils # Lymphocytes # Monocytes # Eosinophils # Basophils # Nucleated Red Blood Cells # Sodium Level 152 H Potassium Level 2.6 *L Chloride Level 105 Carbon Dioxide Level 29 Anion Gap 18 H Blood Urea Nitrogen 57 H Creatinine 1.64 H Est Glomerular 33 L Filtrat Rate mL/min Glucose Level 136 Calcium Level 6.0 L Phosphorus Level 3.5 Magnesium Level 1.7 Random Vancomycin 16.9 Level Test 07/13/18 06:01 07/13/18 11:36 Bedside Glucose 139 151 Medications Medications Current Medications IV Flush (NS 3 ml) 3 ml PER PROTOCOL IV ; Start 06/10/18 at 18:00 Lorazepam (Ativan) 1 mg Q4H PRN IV anxiety Last administered on 06/12/18at 15:28; Admin Dose 1 MG; Start 06/11/18 at 21:30 IV Flush (NS 10 ml) 10 ml PRN PRN IV IV PROTOCOL; Start 06/16/18 at 17:00 Methylnaltrexone [place] (Relistor) 12 mg Q48H SC ; Start 06/17/18 at 08:30 Phenol (Chloraseptic Throat [place]) 2 spray Q2H PRN [place] SORE THROAT Last administered on 06/17/18at 21:23; Admin Dose 2 SPRAY; Start 06/17/18 at 11:30 Morphine Sulfate (morphine) 2 mg Q4H PRN IV SEVERE PAIN LEVEL 7-10 Last administered on 07/10/18at 17:11; Admin Dose 2 MG; Start 06/21/18 at 21:00 Bisacodyl (Dulcolax Supp) 10 mg DAILY PRN [place] CONSTIPATION Last administered on 07/01/18at 10:53; Admin Dose 10 MG; Start 06/25/18 at 12:00 Total Parenteral Nutrition 1,000 ml @ 60 mls/hr [id number] IV Last administered on 07/13/18 08:35; Admin Dose 60 MLS/HR; Start 06/26/18 at 20:00 Diphenhydramine HCl (Benadryl) 25 mg Q6H PRN IV ALLERGIC REACTION; Start 06/29/18 at 11:00 Prochlorperazine (Compazine Inj) 5 mg Q4H PRN IV NAUSEA AND/OR VOMITING Last administered on 07/10/18 11:57; Admin Dose 5 MG; Start 07/04/18 at 11:00 Ondansetron HCl 8 mg/Sodium Chloride 54 ml @ 216 mls/hr Q6H PRN IV NAUSEA AND/OR VOMITING Last administered on 07/05/18 23:18; Admin Dose 216 MLS/HR; Start 07/04/18 at 11:30 Famotidine (Pepcid Iv) 20 mg BID IV Last administered on 07/13/18 08:18; Admin Dose 20 MG; Start 07/05/18 at 11:00 Vancomycin HCl (Vanco Iv Per Pharmacy) VANCOMYCIN PER PHARMACY PER PROTOCOL XX ; Start 07/10/18 at 04:00 Meropenem/Sodium Chloride 50 ml @ 100 mls/hr Q12 IVPB Last administered on 07/13/18 08:27; Admin Dose 100 MLS/HR; Start 07/10/18 at 18:00 Caspofungin 50 mg/ Sodium Chloride 250 ml @ 250 mls/hr Q24H IVPB Last admin istered on 07/12/18 17:28; Admin Dose 250 MLS/HR; Start 07/11/18 at 17:00 Norepinephrine 32 mg/Sodium Chloride 250 ml @ 0.47 mls/hr TITRATE IV Last administered on 07/12/18 14:44; Admin Dose 11.25 MLS/HR; Start 07/10/18 at 19:30 Sodium Hypochlorite (Dakin'S (Dilute 140)) 1 applic DAILY IRR Last administered on 07/13/18 08:18; Admin Dose 1 APPLIC; Start 07/11/18 at 09:00 Phenylephrine HCl 80 mg/Sodium Chloride 250 ml @ 18.75 mls/ hr TITRATE IV Last administered on 07/12/18 22:10; Admin Dose 15 MLS/HR; Start 07/11/18 at 21:00 Miscellaneous Information (*Order Clarification Bulletin) please mix all gtts in nor... Q72H XX Last administered on 07/11/18at 20:44; Admin Dose 1 EA; Start at 20:30 Dexamethasone 20 mg/Sodium Chloride 55 ml @ 252 mls/hr Q6H PRN IVPB ALLERGIC REACTION; Start 07/11/18 at 21:00 Epinephrine 4 mg/ Sodium Chloride 250 ml @ 0 mls/hr TITRATE IV Last ad ministered on 07/12/18 14:00; Admin Dose 11.25 MLS/HR; Start 07/11/18 at 21:00 Vasopressin 60 unit/Sodium Chloride 60 ml @ 1.2 mls/hr Q12H IV Last administered on 07/12/18 17:53; Admin Dose 2.4 MLS/HR; Start 07/11/18 at 21:00 Insulin Aspart (Novolog Insulin Pen) (Adult SC Insulin - Moder... Q6 SC Last administered on 07/13/18at 11:44; Admin Dose 2 UNIT; Start 07/12/18 at 00:00 Miscellaneous Information 1 ea NOTE XX Last administered on 07/12/18 17:40; Admin Dose 1 EA; Start 07/11/18 at 21:30 Glucose (Glutose) 15 gm Q15M PRN PO DECREASED GLUCOSE; Start 07/11/18 at 21:30 Glucose (Glutose) 22.5 gm Q15M PRN PO DECREASED GLUCOSE; Start 07/11/18 at 21:30 Dextrose (D50w Syringe) 25 ml Q15M PRN IV DECREASED GLUCOSE; Start 07/11/18 at 21:30 Dextrose (D50w Syringe) 50 ml Q15M PRN IV DECREASED GLUCOSE; Start 07/11/18 at 21:30 Glucagon (Glucagen) 1 mg Q15M PRN IM DECREASED GLUCOSE; Start 07/11/18 at 21:30 Glucose (Glutose) 15 gm Q15M PRN BUCCAL DECREASED GLUCOSE; Start 07/11/18 at 21:30 Miscellaneous Information (*Order Clarification Bulletin) MEDICATION REQUIRES CLARIFICATI... Q8H XX Last administered on 07/13/18 06:04; Admin Dose 1 EA; Start 07/11/18 at 22:30; Stop 07/13/18 at 22:29 Dextrose 1,000 ml @ 75 mls/hr [id number] IV Last administered on 07/13/18at 08:18; Admin Dose 75 MLS/HR; Start 07/13/18 at 08:00 Hydrocortisone (Solu-Cortef) 100 mg Q8 IV ; Start 07/13/18 at 14:00 Fentanyl 100 ml @ 2.5 mls/hr TITRATE IV ; Start 07/13/18 at 09:00 Vancomycin HCl 100 ml @ 100 mls/hr Q24H IVPB Last administered on 07/13/18at 12:37; Admin Dose 100 MLS/HR; Start 07/13/18 at 13:00 Lobo Duckworth DO Jul 13, 2018 12:58
[2018-07-13] MEDS ORDERED: VANCOMYCIN 500 MG (PMX) 100 ML IVPB SCH (13:00)
[2018-07-13] MEDS: HYDROCORTISONE 100 MG INJ IV SCH ×2 (13:17→22:00)
--- NOTE | 2018-07-13 13:17 | CONS ---
Assessment/Plan Assessment/Plan Hospital Course (Demo Recall) No acute events overnight patient remains on multiple pressors and vent support. No fevers. WBC 2 H&H 10.2 and 28.9 platelets 17. BUN 57 creatinine 1.64. Microbiology: Blood culture growing Pseudomonas aeruginosa abdominal fluid culture growing E. coli, Enterobacter cloaca, VRE resistant to ampicillin Chest x-ray this morning revealed improved aeration of both lungs with minimal residual bibasilar atelectasis Indwelling: Right upper extremity PICC line, right IJ triple-lumen catheter, Ramsey catheter, left-sided abdominal drainage catheters, a line Antimicrobials: Vancomycin, meropenem, Cancidas Physical examination: This is a well-developed well-nourished middle-aged woman who is intubated sedated in no distress. Head atraumatic normocephalic. Neck is supple. Chest rise symmetrical breath sounds diminished bases. Heart: S1-S2 tachycardic regular abdomen distended no bowel tones auscultated extremities mottled and cyanotic Assessment: 1. Sepsis with shock 2. Multisystem organ failure 3. PSA bacteremia likely 2 to #4 4. Abdominal wall abscess with necrosis status post I&D abdominal exploration with lysis of adhesions 3. Acute renal failure 4. Acute respiratory failure 5. Gastric and ovarian cancer 6. Pancytopenia with neutropenia Plan: Remains hemodynamically unstable, we will change vancomycin to Zyvox, monitor her platelets closely and transfuse as needed, prognosis guarded DW RN Consultation Date/Type/Reason Admit Date/Time Jun 10, 2018 at 18:42 Initial Consult Date 07/11/18 Type of Consult id Requesting Provider: ELMER CAVAZOS MD Date/Time of Note DATE: 07/13/18 TIME: 13:16 Exam/Review of Systems Exam Vitals Vital Signs Date Temp Pulse Resp B/P (MAP) Pulse Ox O2 O2 Flow FiO2 Time Delivery Rate 07/13/18 92 14 121/70 Mechanical 13:00 (87) Ventilator 07/13/18 99.2 12:00 07/13/18 30 08:00 07/13/18 100 06:45 Intake and Output 07/12/18 07/12/18 07/13/18 1515:00 23:00 07:00 IntakeIntake Total 1866.30 ml 2117.97 ml 1142.60 ml OutputOutput Total 810 ml 1715 ml 1005 ml BalanceBalance 1056.30 ml 402.97 ml 137.60 ml Results Result Diagram: 07/13/18 0449 07/13/18 0449 Results 24hrs Laboratory Tests Test 07/12/18 17:39 07/12/18 17:56 07/13/18 00:27 07/13/18 04:49 Bedside Glucose 69 L 101 171 White Blood Count 2.0 #L Red Blood Count 3.54 L Hemoglobin 10.2 L Hematocrit 28.9 L Mean Corpuscular 81.6 L Volume Mean Corpuscular 28.8 L Hemoglobin Mean Corpuscular 35.3 Hemoglobin Concent Red Cell 16.1 H Distribution Width Platelet Count 17 *L Mean Platelet Volume Immature 2.000 H Granulocytes % Neutrophils % Lymphocytes % Monocytes % Eosinophils % Basophils % Nucleated Red Blood 5.4 H Cells % Immature 0.040 H Granulocytes # Neutrophils # Lymphocytes # Monocytes # Eosinophils # Basophils # Nucleated Red Blood Cells # Sodium Level 152 H Potassium Level 2.6 *L Chloride Level 105 Carbon Dioxide Level 29 Anion Gap 18 H Blood Urea Nitrogen 57 H Creatinine 1.64 H Est Glomerular 33 L Filtrat Rate mL/min Glucose Level 136 Calcium Level 6.0 L Phosphorus Level 3.5 Magnesium Level 1.7 Random Vancomycin 16.9 Level Test 07/13/18 06:01 07/13/18 11:36 Bedside Glucose 139 151 Medications Medication Current Medications IV Flush (NS 3 ml) 3 ml PER PROTOCOL IV ; Start 06/10/18 at 18:00 Lorazepam (Ativan) 1 mg Q4H PRN IV anxiety Last administered on 06/12/18at 15:28; Admin Dose 1 MG; Start 06/11/18 at 21:30 IV Flush (NS 10 ml) 10 ml PRN PRN IV IV PROTOCOL; Start 06/16/18 at 17:00 Methylnaltrexone [place] (Relistor) 12 mg Q48H SC ; Start 06/17/18 at 08:30 Phenol (Chloraseptic Throat [place]) 2 spray Q2H PRN [place] SORE THROAT Last administered on 06/17/18at 21:23; Admin Dose 2 SPRAY; Start 06/17/18 at 11:30 Morphine Sulfate (morphine) 2 mg Q4H PRN IV SEVERE PAIN LEVEL 7-10 Last administered on 07/10/18at 17:11; Admin Dose 2 MG; Start 06/21/18 at 21:00 Bisacodyl (Dulcolax Supp) 10 mg DAILY PRN [place] CONSTIPATION Last administered on 07/01/18 10:53; Admin Dose 10 MG; Start 06/25/18 at 12:00 Total Parenteral Nutrition 1,000 ml @ 60 mls/hr [id number] IV Last administered on 07/13/18 08:35; Admin Dose 60 MLS/HR; Start 06/26/18 at 20:00 Diphenhydramine HCl (Benadryl) 25 mg Q6H PRN IV ALLERGIC REACTION; Start 06/29/18 at 11:00 Prochlorperazine (Compazine Inj) 5 mg Q4H PRN IV NAUSEA AND/OR VOMITING Last a dministered on 07/10/18 11:57; Admin Dose 5 MG; Start 07/04/18 at 11:00 Ondansetron HCl 8 mg/Sodium Chloride 54 ml @ 216 mls/hr Q6H PRN IV NAUSEA AND/OR VOMITING Last administered on 07/05/18 23:18; Admin Dose 216 MLS/HR; Start 07/04/18 at 11:30 Famotidine (Pepcid Iv) 20 mg BID IV Last administered on 07/13/18 08:18; Admin Dose 20 MG; Start 07/05/18 at 11:00 Vancomycin HCl (Vanco Iv Per Pharmacy) VANCOMYCIN PER PHARMACY PER PROTOCOL XX ; Start 07/10/18 at 04:00 Meropenem/Sodium Chloride 50 ml @ 100 mls/hr Q12 IVPB Last administered on 07/13/18 08:27; Admin Dose 100 MLS/HR; Start 07/10/18 at 18:00 Caspofungin 50 mg/ Sodium Chloride 250 ml @ 250 mls/hr Q24H IVPB Last administered on 07/12/18 17:28; Admin Dose 250 MLS/HR; Start 07/11/18 at 17:00 Norepinephrine 32 mg/Sodium Chloride 250 ml @ 0.47 mls/hr TITRATE IV Last administered on 07/12/18 14:44; Admin Dose 11.25 MLS/HR; Start 07/10/18 at 19:30 Sodium Hypochlorite (Dakin'S (Dilute )) 1 applic DAILY IRR Last administered on 07/13/18at 08:18; Admin Dose 1 APPLIC; Start 07/11/18 at 09:00 Phenylephrine HCl 80 mg/Sodium Chloride 250 ml @ 18.75 mls/ hr TITRATE IV Last administered on 07/12/18at 22:10; Admin Dose 15 MLS/HR; Start 07/11/18 at 21:00 Miscellaneous Information (*Order Clarification Bulletin) please mix all gtts in nor... Q72H XX Last administered on 07/11/18at 20:44; Admin Dose 1 EA; Start 07/11/18 at 20:30 Dexamethasone 20 mg/Sodium Chloride 55 ml @ 252 mls/hr Q6H PRN IVPB ALLERGIC REACTION; Start 07/11/18 at 21:00 Epinephrine 4 mg/ Sodium Chloride 250 ml @ 0 mls/hr TITRATE IV Last administered on 07/12/18at 14:00; Admin Dose 11.25 MLS/HR; Start 07/11/18 at 21:00 Vasopressin 60 unit/Sodium Chloride 60 ml @ 1.2 mls/hr Q12H IV Last administered on 07/12/18at 17:53; Admin Dose 2.4 MLS/HR; Start 07/11/18 at 21:00 Insulin Aspart (Novolog Insulin Pen) (Adult SC Insulin - Moder... Q6 SC Last administered on 07/13/18at 11:44; Admin Dose 2 UNIT; Start 07/12/18 at 00:00 Miscellaneous Information 1 ea NOTE XX Last administered on 07/12/18at 17:40; Admin Dose 1 EA; Start 07/11/18 at 21:30 Glucose (Glutose) 15 gm Q15M PRN PO DECREASED GLUCOSE; Start 07/11/18 at 21:30 Glucose (Glutose) 22.5 gm Q15M PRN PO DECREASED GLUCOSE; Start 07/11/18 at 21:30 Dextrose (D50w Syringe) 25 ml Q15M PRN IV DECREASED GLUCOSE; Start 07/11/18 at 21:30 Dextrose (D50w Syringe) 50 ml Q15M PRN IV DECREASED GLUCOSE; Start 07/11/18 at 21:30 Glucagon (Glucagen) 1 mg Q15M PRN IM DECREASED GLUCOSE; Start 07/11/18 at 21:30 Glucose (Glutose) 15 gm Q15M PRN BUCCAL DECREASED GLUCOSE; Start 07/11/18 at 21:30 Miscellaneous Information (*Order Clarification Bulletin) MEDICATION REQUIRES CLARIFICATI... Q8H XX Last administered on 07/13/18at 06:04; Admin Dose 1 EA; Start 07/11/18 at 22:30; Stop 07/13/18 at 22:29 Dextrose 1,000 ml @ 75 mls/hr [id number] IV Last administered on 07/13/18at 08:18; Admin Dose 75 MLS/HR; Start 07/13/18 at 08:00 Hydrocortisone (Solu-Cortef) 100 mg Q8 IV ; Start 07/13/18 at 14:00 Fentanyl 100 ml @ 2.5 mls/hr TITRATE IV ; Start 07/13/18 at 09:00 Vancomycin HCl 100 ml @ 100 mls/hr Q24H IVPB Last administered on 07/13/18at 12:37; Admin Dose 100 MLS/HR; Start 07/13/18 at 13:00 EMILIA FLORES NP Jul 13, 2018 13:17
[2018-07-13] MEDS: LINEZOLID 600 MG/D5W (PMX) 300 ML IVPB SCH ×2 (13:37→21:18)
--- NOTE | 2018-07-13 14:03 | PN ---
Date/Time of Note Date/Time of Note DATE: 07/13/18 TIME: 13:57 Objective Vitals Vital Signs Date Temp Pulse Resp B/P (MAP) Pulse Ox O2 O2 Flow FiO2 Time Delivery Rate 07/13/18 92 14 117/66 Mechanical 13:30 (83) Ventilator 07/13/18 99.2 12:00 07/13/18 30 08:00 07/13/18 100 06:45 Intake and Output 07/12/18 07/12/18 07/13/18 1515:00 23:00 07:00 IntakeIntake Total 1866.30 ml 2117.97 ml 1142.60 ml OutputOutput Total 810 ml 1715 ml 1005 ml BalanceBalance 1056.30 ml 402.97 ml 137.60 ml Results Result Diagram: 07/13/18 0449 07/13/18 1249 Medications Medications Current Medications IV Flush (NS 3 ml) 3 ml PER PROTOCOL IV ; Start 06/10/18 at 18:00 Lorazepam (Ativan) 1 mg Q4H PRN IV anxiety Last administered on 06/12/18at 15:28; Admin Dose 1 MG; Start 06/11/18 at 21:30 IV Flush (NS 10 ml) 10 ml PRN PRN IV IV PROTOCOL; Start 06/16/18 at 17:00 Methylnaltrexone [place] (Relistor) 12 mg Q48H SC ; Start 06/17/18 at 08:30 Phenol (Chloraseptic Throat [place]) 2 spray Q2H PRN MT SORE THROAT Last administered on 06/17/18at 21:23; Admin Dose 2 SPRAY; Start 06/17/18 at 11:30 Morphine Sulfate (morphine) 2 mg Q4H PRN IV SEVERE PAIN LEVEL 7-10 Last administered on 07/10/18at 17:11; Admin Dose 2 MG; Start 06/21/18 at 21:00 Bisacodyl (Dulcolax Supp) 10 mg DAILY PRN [place] CONSTIPATION Last administered on 07/01/18at 10:53; Admin Dose 10 MG; Start 06/25/18 at 12:00 Total Parenteral Nutrition 1,000 ml @ 60 mls/hr [id number] IV Last administered on 07/13/18at 08:35; Admin Dose 60 MLS/HR; Start 06/26/18 at 20:00 Diphenhydramine HCl (Benadryl) 25 mg Q6H PRN IV ALLERGIC REACTION; Start 06/29/18 at 11:00 Prochlorperazine (Compazine Inj) 5 mg Q4H PRN IV NAUSEA AND/OR VOMITING Last administered on 07/10/18 11:57; Admin Dose 5 MG; Start 07/04/18 at 11:00 Ondansetron HCl 8 mg/Sodium Chloride 54 ml @ 216 mls/hr Q6H PRN IV NAUSEA AND/OR VOMITING Last administered on 07/05/18 23:18; Admin Dose 216 MLS/HR; Start 07/04/18 at 11:30 Famotidine (Pepcid Iv) 20 mg BID IV Last administered on 07/13/18 08:18; Admin Dose 20 MG; Start 07/05/18 at 11:00 Meropenem/Sodium Chloride 50 ml @ 100 mls/hr Q12 IVPB Last administered on 07/13/18 08:27; Admin Dose 100 MLS/HR; Start 07/10/18 at 18:00 Caspofungin 50 mg/ Sodium Chloride 250 ml @ 250 mls/hr Q24H IVPB Last administered on 07/12/18 17:28; Admin Dose 250 MLS/HR; Start 07/11/18 at 17:00 Norepinephrine 32 mg/Sodium Chloride 250 ml @ 0.47 mls/hr TITRATE IV Last administered on 07/12/18 14:44; Admin Dose 11.25 MLS/HR; Start 07/10/18 at 19:30 Sodium Hypochlorite (Dakin'S (Dilute 40)) 1 applic DAILY IRR Last administered on 07/13/18 08:18; Admin Dose 1 APPLIC; Start 07/11/18 at 09:00 Phenylephrine HCl 80 mg/Sodium Chloride 250 ml @ 18.75 mls/ hr TITRATE IV Last administered on 07/12/18 22:10; Admin Dose 15 MLS/HR; Start 07/11/18 at 21:00 Miscellaneous Information (*Order Clarification Bulletin) please mix all gtts in nor... Q72H XX Last administered on 07/11/18 20:44; Admin Dose 1 EA; Start 07/11/18 at 20:30 Dexamethasone 20 mg/Sodium Chloride 55 ml @ 252 mls/hr Q6H PRN IVPB ALLERGIC REACTION; Start 07/11/18 at 21:00 Epinephrine 4 mg/ Sodium Chloride 250 ml @ 0 mls/hr TITRATE IV Last administered on 07/12/18at 14:00; Admin Dose 11.25 MLS/HR; Start 07/11/18 at 21:00 Vasopressin 60 unit/Sodium Chloride 60 ml @ 1.2 mls/hr Q12H IV Last administered on 07/12/18at 17:53; Admin Dose 2.4 MLS/HR; Start 07/11/18 at 21:00 Insulin Aspart (Novolog Insulin Pen) (Adult SC Insulin - Moder... Q6 SC Last administered on 07/13/18at 11:44; Admin Dose 2 UNIT; Start 07/12/18 at 00:00 Miscellaneous Information 1 ea NOTE XX Last administered on 07/12/18at 17:40; Admin Dose 1 EA; Start 07/11/18 at 21:30 Glucose (Glutose) 15 gm Q15M PRN PO DECREASED GLUCOSE; Start 07/11/18 at 21:30 Glucose (Glutose) 22.5 gm Q15M PRN PO DECREASED GLUCOSE; Start 07/11/18 at 21:30 Dextrose (D50w Syringe) 25 ml Q15M PRN IV DECREASED GLUCOSE; Start 07/11/18 at 21:30 Dextrose (D50w Syringe) 50 ml Q15M PRN IV DECREASED GLUCOSE; Start 07/11/18 at 21:30 Glucagon (Glucagen) 1 mg Q15M PRN IM DECREASED GLUCOSE; Start 07/11/18 at 21:30 Glucose (Glutose) 15 gm Q15M PRN BUCCAL DECREASED GLUCOSE; Start 07/11/18 at 21:30 Miscellaneous Information (*Order Clarification Bulletin) MEDICATION REQUIRES CLARIFICATI... Q8H XX Last administered on 07/13/18at 06:04; Admin Dose 1 EA; Start 07/11/18 at 22:30; Stop 07/13/18 at 22:29 Dextrose 1,000 ml @ 75 mls/hr [id number] IV Last administered on 07/13/18at 08:18; Admin Dose 75 MLS/HR; Start 07/13/18 at 08:00 Hydrocortisone (Solu-Cortef) 100 mg Q8 IV Last administered on 07/13/18at 13:17; Admin Dose 100 MG; Start 07/13/18 at 14:00 Fentanyl 100 ml @ 2.5 mls/hr TITRATE IV ; Start 07/13/18 at 09:00 Linezolid 300 ml @ 300 mls/hr Q12 IVPB Last administered on 07/13/18at 13:37; Admin Dose 300 MLS/HR; Start 07/13/18 at 13:30 VTE Prophylaxis Risk score (from [facility] [place]0 risk: 12 SCD applied (from [facility] [place]): Yes Lines/Catheters IV Catheter Type: Ramsey in Place: No Assessment/Plan Hospital Course Subjective Patient still on pressors Objective Physical exam General: Patient is laying in bed, intubated Mentation: Patient is intubated Head: Normocephalic atraumatic Eyes: EOMI, pupils reactive to light but sluggish Neck: Supple, nontender, midline Respiratory: Clear to auscultation bilaterally Cardiovascular: regular rate, no obvious murmurs Gastrointestinal: Surgical site bandaged, abdomen is moderately rigid Neurological: Unable to assess due to sedation Skin: Surgical site bandaged Assessment/Plan 1. Septic shock secondary to intraabdominal source - patient on pressor support with goal MAP >65 - CT scan results noted with J tube leak. Gen surgery took patient to OR with fi ndings of abscess formation and necrotic tissue secondary to bile leakage into abdominal cavity on 07/10/17 - Continue IV antibiotics and pressor support as needed -profound lactic acid elevation lactic acidosis -2/2 to above intraabdoinal infection, s/p removal of necrotic tissue and abscess removal -IVF per renal thrombocytopenia -likely due to overwhelming infection, ?DIC , but will defer to hematology -No sources of bleeding, monitor closely for now, transfuse platelets and blood as needed 2. Acute hypoxic respiratory failure - On mechanical ventilation following OR - Pulmonology consultation placed for vent management 3. Partial obstructive gastric outlet - Surgery on board and appreciate recommendations. J tube placed 07/08, repositioned on 07/10. - s/p placement of stent by GI. Repeat SBFT shows patency of stent 4. 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 Completed first round of chemotherapy and will need to follow up as outpatient for further treatment - perma cath placement when stable - Patient's prior oncologist is Dr Mae at [facility]. but she wishes to follow up with Dr. Vick now. 5. JAMAL - trending up in setting of septic shock - will continue on IVF - nephrology consultation appreciated 6. PUD - GI on board and appreciate recommendations - Pepcid BID 7. Constipation - bowel regimen when stable 8. Disposition -Family conference with palliative care physician was done, patient's children are in agreement with DO NOT RESUSITATE. Palliative will discuss hospice. - Remains intubated in ICU and will continue weaning pressor support as tolerated -more than 40 minutes of critical care time was spent on this encounter - Continue all care. Very poor prognosis at this time. ALYX HENDRIX Jul 13, 2018 14:03
[2018-07-13] MEDS: VASOPRESSIN 60 UNIT in SOD CHLORIDE 0.9% 57 ML IV SCH ×2 (14:46→21:00)
--- NOTE | 2018-07-13 16:40 | CONS ---
Assessment/Plan Assessment/Plan Hospital Course (Demo Recall) unfortunate 47 yo with metastatic gastric ca. admitted with N/V/abdo pain. s/p EGD and metal stent placed across the malignant stricture of the antrum of the stomach and also first part of the duodenum. #gastric ca -biopsy from EGD and reports from outside facilities are c/w gastric ca signet ring features. unclear why pt thought it was ovarian ca, have called Dr Mcdonald's office as well to update him s/p Cycle 1 FOLFOX + herceptin -CHEMO STARTED 06/29/18, has completed the 46 hr infusion, she is too critical for any further chemo and given sepsis she may not fully recover and agree with transition to palliative/comfort care. DNR -I had been clear with the patient that she has stage IV disease and metastatic gastric ca has a poor prognosis and low 5 year overall survival rate, stage Iv usually have at best 18 mos overall survival. given her young age we have been aggressive but at the outset her disease was very advanced at diagnosis -appropriate for palliative care DNR family meeting tomorrow Thank you Dr Lee and Dr Landeros for allowing us to participate in the care of this pleasant pt Consultation Date/Type/Reason Admit Date/Time Jun 10, 2018 at 18:42 Initial Consult Date 06/11/18 Requesting Provider: ELMER LEE MD Date/Time of Note DATE: 07/13/18 TIME: 16:39 24 HR Interval Summary Free Text/Dictation pt off of sedation, no breathing over vent on 4 pressors Exam/Review of Systems Exam Vitals Vital Signs Date Temp Pulse Resp B/P (MAP) Pulse Ox O2 O2 Flow FiO2 Time Delivery Rate 07/13/18 90 14 125/76 Mechanical 16:15 (92) Ventilator 07/13/18 99.0 16:00 07/13/18 100 30 13:35 Intake and Output 07/12/18 07/12/18 07/13/18 1515:00 23:00 07:00 IntakeIntake Total 1866.30 ml 2117.97 ml 1142.60 ml OutputOutput Total 810 ml 1715 ml 1005 ml BalanceBalance 1056.30 ml 402.97 ml 137.60 ml Results Result Diagram: 07/13/18 0449 07/13/18 1249 Results 24hrs Laboratory Tests Test 07/12/18 17:39 07/12/18 17:56 07/13/18 00:27 07/13/18 04:49 Bedside Glucose 69 L 101 171 White Blood Count 2.0 #L Red Blood Count 3.54 L Hemoglobin 10.2 L Hematocrit 28.9 L Mean Corpuscular 81.6 L Volume Mean Corpuscular 28.8 L Hemoglobin Mean Corpuscular 35.3 Hemoglobin Concent Red Cell 16.1 H Distribution Width Platelet Count 17 *L Mean Platelet Volume Immature 2.000 H Granulocytes % Neutrophils % Lymphocytes % Monocytes % Eosinophils % Basophils % Nucleated Red Blood 5.4 H Cells % Immature 0.040 H Granulocytes # Neutrophils # Lymphocytes # Monocytes # Eosinophils # Basophils # Nucleated Red Blood Cells # Sodium Level 152 H Potassium Level 2.6 *L Chloride Level 105 Carbon Dioxide Level 29 Anion Gap 18 H Blood Urea Nitrogen 57 H Creatinine 1.64 H Est Glomerular 33 L Filtrat Rate mL/min Glucose Level 136 Calcium Level 6.0 L Phosphorus Level 3.5 Magnesium Level 1.7 Random Vancomycin 16.9 Level Test 07/13/18 06:01 07/13/18 11:36 07/13/18 12:49 Bedside Glucose 139 151 Sodium Level 152 H Potassium Level 2.8 *L Chloride Level 105 Carbon Dioxide Level 30 Anion Gap 17 H Blood Urea Nitrogen 58 H Creatinine 1.54 H Est Glomerular 36 L Filtrat Rate mL/min Glucose Level 172 Calcium Level 6.5 L Medications Medication Current Medications IV Flush (NS 3 ml) 3 ml PER PROTOCOL IV ; Start 06/10/18 at 18:00 Lorazepam (Ativan) 1 mg Q4H PRN IV anxiety Last administered on 06/12/18at 15:28; Admin Dose 1 MG; Start 06/11/18 at 21:30 IV Flush (NS 10 ml) 10 ml PRN PRN IV IV PROTOCOL; Start 06/16/18 at 17:00 Methylnaltrexone [place] (Relistor) 12 mg Q48H SC ; Start 06/17/18 at 08:30 Phenol (Chloraseptic Throat [place]) 2 spray Q2H PRN MT SORE THROAT Last administered on 06/17/18at 21:23; Admin Dose 2 SPRAY; Start 06/17/18 at 11:30 Morphine Sulfate (morphine) 2 mg Q4H PRN IV SEVERE PAIN LEVEL 7-10 Last administered on 07/10/18 17:11; Admin Dose 2 MG; Start 06/21/18 at 21:00 Bisacodyl (Dulcolax Supp) 10 mg DAILY PRN [place] CONSTIPATION Last administered on 07/01/18 10:53; Admin Dose 10 MG; Start 06/25/18 at 12:00 Total Parenteral Nutrition 1,000 ml @ 60 mls/hr [id number] IV Last administered on 07/13/18 08:35; Admin Dose 60 MLS/HR; Start 06/26/18 at 20:00 Diphenhydramine HCl (Benadryl) 25 mg Q6H PRN IV ALLERGIC REACTION; Start 06/29/18 at 11:00 Prochlorperazine (Compazine Inj) 5 mg Q4H PRN IV NAUSEA AND/OR VOMITING Last administered on 07/10/18 11:57; Admin Dose 5 MG; Start 07/04/18 at 11:00 Ondansetron HCl 8 mg/Sodium Chloride 54 ml @ 216 mls/hr Q6H PRN IV NAUSEA AND/OR VOMITING Last administered on 07/05/18 23:18; Admin Dose 216 MLS/HR; Start 07/04/18 at 11:30 Famotidine (Pepcid Iv) 20 mg BID IV Last administered on 07/13/18 08:18; Admin Dose 20 MG; Start 07/05/18 at 11:00 Meropenem/Sodium Chloride 50 ml @ 100 mls/hr Q12 IVPB Last administered on 07/13/18 08:27; Admin Dose 100 MLS/HR; Start 07/10/18 at 18:00 Caspofungin 50 mg/ Sodium Chloride 250 ml @ 250 mls/hr Q24H IVPB Last administered on 07/12/18 17:28; Admin Dose 250 MLS/HR; Start 07/11/18 at 17:00 Norepinephrine 32 mg/Sodium Chloride 250 ml @ 0.47 mls/hr TITRATE IV Last administered on 07/12/18 14:44; Admin Dose 11.25 MLS/HR; Start 07/10/18 at 19:30 Sodium Hypochlorite (Dakin'S (Dilute 40)) 1 applic DAILY IRR Last administered on 07/13/18 08:18; Admin Dose 1 APPLIC; Start 07/11/18 at 09:00 Phenylephrine HCl 80 mg/Sodium Chloride 250 ml @ 18.75 mls/ hr TITRATE IV Last administered on 07/12/18at 22:10; Admin Dose 15 MLS/HR; Start 07/11/18 at 21:00 Miscellaneous Information (*Order Clarification Bulletin) please mix all gtts in nor... Q72H XX Last administered on 07/11/18at 20:44; Admin Dose 1 EA; Start 07/11/18 at 20:30 Dexamethasone 20 mg/Sodium Chloride 55 ml @ 252 mls/hr Q6H PRN IVPB ALLERGIC REACTION; Start 07/11/18 at 21:00 Epinephrine 4 mg/ Sodium Chloride 250 ml @ 0 mls/hr TITRATE IV Last administered on 07/12/18at 14:00; Admin Dose 11.25 MLS/HR; Start 07/11/18 at 21:00 Vasopressin 60 unit/Sodium Chloride 60 ml @ 1.2 mls/hr Q12H IV Last administered on 07/13/18at 14:46; Admin Dose 2.4 MLS/HR; Start 07/11/18 at 21:00 Insulin Aspart (Novolog Insulin Pen) (Adult SC Insulin - Moder... Q6 SC Last administered on 07/13/18at 11:44; Admin Dose 2 UNIT; Start 07/12/18 at 00:00 Miscellaneous Information 1 ea NOTE XX Last administered on 07/12/18at 17:40; Admin Dose 1 EA; Start 07/11/18 at 21:30 Glucose (Glutose) 15 gm Q15M PRN PO DECREASED GLUCOSE; Start 07/11/18 at 21:30 Glucose (Glutose) 22.5 gm Q15M PRN PO DECREASED GLUCOSE; Start 07/11/18 at 21:30 Dextrose (D50w Syringe) 25 ml Q15M PRN IV DECREASED GLUCOSE; Start 07/11/18 at 21:30 Dextrose (D50w Syringe) 50 ml Q15M PRN IV DECREASED GLUCOSE; Start 07/11/18 at 21:30 Glucagon (Glucagen) 1 mg Q15M PRN IM DECREASED GLUCOSE; Start 07/11/18 at 21:30 Glucose (Glutose) 15 gm Q15M PRN BUCCAL DECREASED GLUCOSE; Start 07/11/18 at 21:30 Miscellaneous Information (*Order Clarification Bulletin) MEDICATION REQUIRES CLARIFICATI... Q8H XX Last administered on 07/13/18 06:04; Admin Dose 1 EA; Start 07/11/18 at 22:30; Stop 07/13/18 at 22:29 Dextrose 1,000 ml @ 75 mls/hr [id number] IV Last administered on 07/13/18 08:18; Admin Dose 75 MLS/HR; Start 07/13/18 at 08:00 Hydrocortisone (Solu-Cortef) 100 mg Q8 IV Last administered on 07/13/18 13:17; Admin Dose 100 MG; Start 07/13/18 at 14:00 Fentanyl 100 ml @ 2.5 mls/hr TITRATE IV ; Start 07/13/18 at 09:00 Linezolid 300 ml @ 300 mls/hr Q12 IVPB Last administered on 07/13/18 13:37; Admin Dose 300 MLS/HR; Start 07/13/18 at 13:30 Potassium Chloride 100 ml @ 50 mls/hr Q2H IVPB Last administered on 07/13/18 16:09; Admin Dose 50 MLS/HR; Start 07/13/18 at 14:00; Stop 07/13/18 at 17:59 NICK VARELA 13, 2019 16:40
[2018-07-13] MEDS: CASPOFUNGIN 50 MG in SOD CHLORIDE 0.9% 250 ML IVPB SCH (16:43)
[2018-07-13] MEDS: ALBUMIN HUMAN 25% 100 ML IV SCH (23:01)
[2018-07-14] VITALS (50 sets, daily range): BP systolic 68–120; BP diastolic 37–66; PULSE 84–135; RESP 9–32
[2018-07-14] MEDS: POTASSIUM CHLORIDE 100 ML IVPB SCH (00:09)
[2018-07-14] MEDS: TPN 1,000 ML IV SCH (03:18)
[2018-07-14] MEDS: HYDROCORTISONE 100 MG INJ IV SCH (05:13)
[2018-07-14] MEDS: Insulin NOVOLOG SS MODERATE Algorithm(NPO/TPN/ENTERAL FEEDS) SC SCH (05:19)
[2018-07-14] MEDS: PHENYLephrine 80 MG in SOD CHLORIDE 0.9% 242 ML IV SCH (05:48)
[2018-07-14] MEDS: ALBUMIN HUMAN 25% 100 ML IV SCH (06:02)
[2018-07-14] MEDS ORDERED: MAGNESIUM SULFATE 2 GM/50 ML 50 ML IVPB ONE (07:00)
[2018-07-14] MEDS ORDERED: LORAZEPAM 1 MG TAB PO PRN (08:00)
[2018-07-14] MEDS ORDERED: morphine (DRIP) 100 MG/100 ML 100 ML IV SCH (08:00)
--- NOTE | 2018-07-14 08:20 | PN ---
DATE: 07/14/2018 SUBJECTIVE: The patient is in greater condition. The patient was weaned off pressor support. Urina ry output has been marginal. No acute events noted. OBJECTIVE: VITAL SIGNS: Blood pressure is 101/53, respirations 16, pulse 87, temperature 99.4. HEENT: Head is normocephalic. NECK: Supple. HEART: Regular rate. LUNGS: Show diminished breath sounds at the base. ABDOMEN: Soft, nontender to palpation. EXTREMITIES: Negative for clubbing, cyanosis. Trace edema. DERMATOLOGIC: No rashes. MUSCULOSKELETAL: No joint effusion. NEUROLOGIC: No change in exam. MEDICATIONS: Reviewed. LABORATORY DATA: Shows sodium 145, potassium 2.7, chloride 101, BUN 67, creatinine 1.37. Lactic aci d 8.9. White count 8.3, hemoglobin 10.8, platelet count is 14. The patient's ABG shows pH 7.50, pCO 2 of 40, base excess of 7.8. IMAGING STUDIES: Reviewed. ASSESSMENT AND PLAN: This is a 48-year-old female who presents with: 1. Oliguric acute kidney injury with previously normal baseline creatinine. Etiology of current acu te kidney injury is secondary to acute tubular necrosis due to sepsis, shock. The patient appears to currently be in maintenance phase of acute tubular necrosis as renal function stabilized in the last 48 hours. At this point, we would continue current treatment plan. Continue supportive care, renal ly dose all medicines, continue to monitor urinary output closely. Continue pressor support to maint ain MAP of 65. Continue antibiotic therapy. We will monitor closely. 2. Hypokalemia. Etiology is multifactorial secondary to metabolic alkalemia causing transcellular s hift in conjunction with total body deficit from gastrointestinal losses. Plan at this point is to c ontinue to replete with potassium chloride. The patient's bicarbonate drip has been discontinued. W e will continue to monitor closely. We would expect potassium levels to normalize in the next 1 to 2 days. 3. Hypernatremia. The patient has free water deficit of approximately 3 liters. The patient's sodi um levels have been improving. Continue D5 water. 4. Mixed acid base disorder. The patient has a metabolic alkalemia and metabolic acidosis and respi ratory alkalosis. The patient's ABG was reviewed. Bicarbonate drip has been discontinued. We will continue to monitor. 5. Pancytopenia, anemia, etiology is multifactorial secondary to chemotherapy. The patient's white count has been improving. Continue to monitor platelet levels. Follow up with hematology/oncology. 6. Mineral bone disorder, monitor calcium and phosphorus levels. 7. Ventilator-dependent respiratory failure. Vent settings and ABG was reviewed. Continue to monit or. 8. Acute encephalopathy, etiology is toxic metabolic. 9. Intraabdominal abscess. The patient is status post surgical debridement. Continue to monitor. Follow up with general surgery. 10. Tachyarrhythmia. Continue to monitor. 11. Metastatic gastric carcinoma. The patient is status post chemotherapy. 12. Nutrition. Continue TPN. 13. Decubitus wound. Continue wound care. Please note I spent over 30 minutes of critical care time with this patient. The patient has overall poor prognosis. Dictated By: BRAYDEN RED DO NR/NTS Conf#: [id number] DID#: [id number] CC: ALYX HENDRIX MD; DARVIN BOURNE MD; ELMER CAVAZOS MD;*EndCC*
[2018-07-14] MEDS ORDERED: LORAZEPAM 2 MG INJ IV PRN (08:30)
[2018-07-14] MEDS ORDERED: POTASSIUM CHLORIDE 100 ML IVPB SCH (09:00)
--- NOTE | 2018-07-14 09:53 | CONS ---
Assessment/Plan Assessment/Plan Assessment/Plan (Daily) Chest x-ray was reviewed from today which is totally clear. Ventilator setting; AC of 14, tidal volume 550, PEEP of 5, 30% FiO2. Patient is currently on TPN, phenylephrine drip 40 mics per minute. Antibiotics have been discontinued. Assessment and recommendations; 1. Patient status post laparotomy with history of abdominal malignancy gastric and ovarian cancer. Status post abdominal abscess drainage as well as adhesion lysis. 2. Persistent severe ileus. 3. Severe encephalopathy. 4. Persistent hypotension. 5. Anemia and severe thrombocytopenia. 6. Acute renal injury with slight improvement in renal function. Patient though remains oliguric. Ventilator settings have been adjusted. Bladder volume decreased to 475 mL. Prognosis is extremely poor. Patient's family likely will opt for terminal extubation sometime today. 35 minutes of critical care time was spent evaluating the patient. Consultation Date/Type/Reason Admit Date/Time Jun 10, 2018 at 18:42 Initial Consult Date 07/11/18 Type of Consult Pulmonary/critical care Pulmonary consult requested for evaluation of respiratory failure and sepsis. Patient is a 47-year-old lady who was admitted on 06/10/2018 with complaints of abdominal pain. The patient has had a very prolonged stay in the hospital and was diagnosed with bowel obstruction and abdominal abscess and underwent laparotomy yesterday. She also underwent adhesion lysis as well as drainage of abdominal abscess. Patient currently is critically ill requiring multiple pressor agents. By the time I saw her in ICU, patient is orally intubated on ventilator and sedated. History was obtained from medical records. Past medical history; 1. History of partial gastrectomy last year due to gastric malignancy. 2. History of ovarian cancer. Status post resection. Medications; patient is on multiple pressor agents. Including vasopressin, phenylephrine, Levophed. Patient also on sodium bicarbonate drip. Antibiotics were reviewed. Allergies; none. Social history, family history, occupational history not available. Review of system; unable to be obtained. General exam; young female, orally intubated, sedated, currently in no distress. Requesting Provider: ELMER CAVAZOS MD Date/Time of Note DATE: 07/14/18 TIME: 09:49 24 HR Interval Summary Free Text/Dictation Patient's condition remains critical. Remains hypotensive and on pressor support. Patient been off sedation for more than 24 hours and is completely unresponsive. General exam; young female, orally intubated, unresponsive, currently in no distress. Exam/Review of Systems Exam Vitals Vital Signs Date Temp Pulse Resp B/P (MAP) Pulse Ox O2 O2 Flow FiO2 Time Delivery Rate 07/14/18 88 14 98/48 (65) 98 Mechanical 09:00 Ventilator 07/14/18 30 08:17 07/14/18 99.4 07:00 Intake and Output 07/13/18 07/13/18 07/14/18 1515:00 23:00 07:00 IntakeIntake Total 1848.57 ml 1898.82 ml 1460.63 ml OutputOutput Total 395 ml 335 ml 293 ml BalanceBalance 1453.57 ml 1563.82 ml 1167.63 ml Exam H EENT exam; supple neck, no JVD. No lymphadenopathy. Midline trachea. No thyromegaly. Orally intubated. Patient has fair dentition. Pupils are small bilaterally. No neck masses. Chest exam; clear to auscultation. S1-S2 audible, no murmurs. Regular rhythm. Abdomen exam; tense, midline dressing in place. Bowel sounds are absent. Organomegaly difficult to assess because of abdominal distention. Extremity exam; no edema. CIRCULATION MANAGER exam; patient is unresponsive. Results Result Diagram: 07/14/18 0430 07/14/18 0430 Results 24hrs Laboratory Tests Test 07/13/18 11:36 07/13/18 12:49 07/13/18 17:11 07/13/18 19:22 Bedside Glucose 151 226 H Sodium Level 152 H 148 H Potassium Level 2.8 *L 2.7 *L Chloride Level 105 103 Carbon Dioxide 30 31 Level Anion Gap 17 H 14 H Blood Urea 58 H 64 H Nitrogen Creatinine 1.54 H 1.38 H Est Glomerular 36 L 40 L Filtrat Rate mL/min Glucose Level 172 228 H Calcium Level 6.5 L 6.4 L Magnesium Level 1.9 Test 07/13/18 23:39 07/14/18 04:10 07/14/18 04:30 07/14/18 05:16 Bedside Glucose 239 H 163 Lactic Acid Level 8.9 *H White Blood Count 8.3 # Red Blood Count 3.83 L Hemoglobin 10.8 L Hematocrit 31.4 L Mean Corpuscular 82.0 Volume Mean Corpuscular 28.2 L Hemoglobin Mean Corpuscular 34.4 Hemoglobin Concen t Red Cell 16.3 H Distribution Width Platelet Count 14 *L Mean Platelet Volume Immature 1.100 H Granulocytes % Neutrophils % Segmented 33 L Neutrophils % (Manual) Band Neutrophils 40 H % (Manual) Lymphocytes % Lymphocytes % 3 L (Manual) Monocytes % Monocytes % 10 (Manual) Eosinophils % Eosinophils % 1 (Manual) Basophils % Metamyelocytes % 5 H (manual) Myelocytes % 3 H (Manual) Promyelocytes % 4 H (Manual) Nucleated Red 2 H Blood Cells % Immature 0.090 H Granulocytes # Neutrophils # Neutrophils # 3.0 (Manual) Band Neutrophils 3.3 H # Lymphocytes 0.2 L (Manual) Lymphocytes # Monocytes # Monocytes # 0.8 (Manual) Eosinophils # Basophils # Metamyelocytes # 0.4 H Myelocytes # 0.2 H Promyelocytes # 0.3 H Nucleated Red Blood Cells # Platelet Estimate DECREASED Giant Platelets 3 H Polychromasia 1+ Poikilocytosis 1+ Anisocytosis 1+ Ovalocytes 1+ Stomatocytes 1+ Sodium Level 145 H Potassium Level 2.7 *L Chloride Level 101 Carbon Dioxide 33 H Level Anion Gap 11 Blood Urea 67 H Nitrogen Creatinine 1.37 H Est Glomerular 41 L Filtrat Rate mL/min Glucose Level 184 Calcium Level 6.8 L Phosphorus Level 3.5 Magnesium Level 1.8 Test 07/14/18 07:00 Blood Gas Blood arterial Specimen Source Arterial Blood 07/14/2018 7:02:1 Date Drawn 5 AM Arterial Blood pH 7.510 H (Temp corrected) Arterial Blood 40.3 pCO2 (Temp correct) Arterial Blood 95.0 pO2 (Temp corrected) Arterial Blood 31.4 H HCO3 Arterial Blood 7.8 H Base Excess Arterial Blood 96.8 Oxygen Saturation Dionte Test N/A Arterial Blood A-Line Gas Puncture Site Arterial 0.3 Blood Carboxyhemo globin Arterial Blood 0.2 Methemoglobin Blood Gas A-a O2 71.6 H Differential Oxyhemoglobin 96.3 Percent Blood Gas 37.0 Temperature Blood Gas 14.0 Respiration Rate Blood Gas Actual 14 Respiration Rate Blood Gas VENT - AC Modality FiO2 30.0 Blood Gas Tidal 550.0 Volume Blood Gas Low 5.0 PEEP Setting Blood Gas TM Notified Whom Blood Gas 07/14/2018 7:11:0 Notified Time 2 AM Medications Medication Current Medications Morphine Sulfate/ Sodium Chloride 100 ml @ 1 mls/hr TITRATE IV ; Start 07/14/18 at 08:00 Lorazepam (Ativan) 1 mg Q2 PRN PO AGITATION; Start 07/14/18 at 08:00 Miscellaneous Information (* Miscellaneous Pharmacy Order) D/C ALL DRIPS/MEDS PT.... ONCE XX ; Start 07/14/18 at 08:00 Lorazepam (Ativan) 2 mg Q2H PRN IV AGITATION; Start 07/14/18 at 08:30 MARY ANN ARAIZA Jul 14, 2018 09:53
--- NOTE | 2018-07-14 10:48 | PN ---
Date/Time of Note Date/Time of Note DATE: 07/14/18 TIME: 10:44 Assessment/Plan Lines/Catheters IV Catheter Type (from Nrs): Saline Lock Ramsey in Place (from Nrs): Yes Assessment/Plan Chief Complaint/Hosp Course 1. CT with emphysematous gastritis, portal venous air, thickening of pylorus and duodenal bulb, thick-walled gallbladder, mesenteric inflammation in the upper abdomen with free fluid. Repeat CT noted with improvement of emphysematous gastritis; EGD w stent placement 06/21/18; 04/06/19 status post gastrojejunostomy, resection of right ovarian mass and partial omentectomy at [facility] by . UGI noted with patent stent but continues to have intermittent vomiting. s/p Lap feeding tube, however frozen abdomen and intestines plastered to abdominal wall and initial trocar directly entered into bowel and used as feeding tube site. Contrast study did not identify leak and therefore feeding tube was placed at the site. Patient with persistent tachycardia and hypotension taken to OR 07/10 and found significant infection, abscess, necrosis left abdominal wall s/p I&D&D. Intra-abdominally locally no acute issues besides adhesions. Patient placed on pressor and ventilatory support. Family has decided for comfort measures only. -comfort measures 2. 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 Previous history of perforated duodenal ulcer and obstruction favors site of primary tumor in the upper GI tract. 3. Pancytopenia, with possible dic2nd sepsis, 4. Poor nutrition: TPN 5. Sepsis with shock, multi-organ failure, worsening lactic acidosis; currently on multiple pressor support 6. Renal insufficiency Thank you. Patient seen and examined in collaboration with Dr. Ag Calle. Subjective 24 Hr Interval Summary Patient transitioned to comfort care. Appears comfortable. Nonverbal indicators of pain not present. Morphine gtt. Exam/Review of Systems Vital Signs Vitals Vital Signs Date Temp Pulse Resp B/P (MAP) Pulse Ox O2 O2 Flow FiO2 Time Delivery Rate 07/14/18 91 14 98 30 10:10 07/14/18 96/48 (64) Mechanical 10:00 Ventilator 07/14/18 99.4 07:00 Intake and Output 07/13/18 07/13/18 07/14/18 1515:00 23:00 07:00 IntakeIntake Total 1848.57 ml 1898.82 ml 1460.63 ml OutputOutput Total 395 ml 335 ml 293 ml BalanceBalance 1453.57 ml 1563.82 ml 1167.63 ml Exam Free Text/Dictation Constitutional: ventilated, frail Psych: ventilated Head: normocephalic, atraumatic Eyes: nl conjunctiva, No icteric ENMT: nl external ears & nose, nl lips & teeth, mucosa pink and moist; ETT, ngt Neck: supple, non-tender; No jvd Respiratory: normal air movement; symmetrical chest rise No congested cough, No wheezing Cardiovascular: rrr, sr Gastrointestinal: soft, tender, feeding tube (drainage around tube), less rigid, LUQ wound clean-packed; ecchymosis left lower side; missy serosang Musculoskeletal: nl extremities to inspection; No joint tenderness Extremities: normal pulses; gen edema No calf tenderness, Neurological: ventilated Skin: nl turgor; left flank to upper medial thigh ecchymosis No rash or lesions, No diaphoresis Lymph: nl lymph nodes Results Result Diagram: 07/14/1842907/14/18429 IVELISSE CEJA NP Jul 14, 2018 10:48
--- NOTE | 2018-07-14 11:25 | CONS ---
Assessment/Plan Assessment/Plan Assessment/Plan (Daily) At 0700 hrs. this morning I had a family meeting with approximately 12 members of the family including the 2 daughters who are the primary decision makers for patient's ongoing level of care. They expressed once again her mother's desire not to live on a ventilator in during my last meeting with them 1 week ago they decided to give her this period of time to see whether or not she would signifi cantly improve. Patient has not improved although she is off 2 pressors at this time she was given albumin overnight and her blood pressure still remains in the low 100s. She is receiving 30% FiO2 but is completely vent dependent she is not overbreathing the ventilator. Pupils are minimally reactive but she has no doll's eyes or corneal reflex no gag no spontaneous movement and patient is off sedation. We covered the fact that patient still has an underlying malignancy please refer to dictated notes in chart and in spite of the fact that she may recover she is still left with a refill malignancy. Both 2 daughters and the entire family made a decision not to pursue any further aggressive intervention and have changed her status to comfort levels only. I have the size of voice for patient's ongoing level of care where her 2 daughters were clear and her decision that the mother had made a prior stable to them that she did not want to continue to live on artificial life support. All family members had a clear understanding of her underlying medical illness there hopes acceptable quality of life was that she did not suffer any longer they have strong spiritual and gnosticism believes no communication issues Impressions are the family wants to continue with this level of care and allow her mother to with dignity without pain and without her living with quantity but without quality of life. Goals of care are to treat this patient with comfort measures at this time per family's request her prognosis is she will probably within the next 24 hours pain and physical symptoms will be addressed. It is impossible to address patient's pain which she cannot express as well as any physical findings to indicate pain such as grimacing moaning or groaning. Standard of care is to treat patient under such circumstances with comfort measures. There were no other psychosocial issues to be addressed ethical issues were addressed as well as surrogate legal issues CODE STATUS comfort measures only. Consultation Date/Type/Reason Admit Date/Time Jun 10, 2018 at 18:42 Initial Consult Date 06/11/18 Requesting Provider: ELMER CAVAZOS MD Date/Time of Note DATE: 07/14/18 TIME: 11:15 Exam/Review of Systems Exam Vitals Vital Signs Date Temp Pulse Resp B/P (MAP) Pulse Ox O2 O2 Flow FiO2 Time Delivery Rate 07/14/18 91 14 98 30 10:10 07/14/18 96/48 (64) Mechanical 10:00 Ventilator 07/14/18 99.4 07:00 Intake and Output 07/13/18 07/13/18 07/14/18 1515:00 23:00 07:00 IntakeIntake Total 1848.57 ml 1898.82 ml 1460.63 ml OutputOutput Total 395 ml 335 ml 293 ml BalanceBalance 1453.57 ml 1563.82 ml 1167.63 ml Results Result Diagram: 07/14/18 0430 07/14/18 0430 Results 24hrs Laboratory Tests Test 07/13/18 11:36 07/13/18 12:49 07/13/18 17:11 07/13/18 19:22 Bedside Glucose 151 226 H Sodium Level 152 H 148 H Potassium Level 2.8 *L 2.7 *L Chloride Level 105 103 Carbon Dioxide 30 31 Level Anion Gap 17 H 14 H Blood Urea 58 H 64 H Nitrogen Creatinine 1.54 H 1.38 H Est Glomerular 36 L 40 L Filtrat Rate mL/min Glucose Level 172 228 H Calcium Level 6.5 L 6.4 L Magnesium Level 1.9 Test 07/13/18 23:39 07/14/18 04:10 07/14/18 04:30 07/14/18 05:16 Bedside Glucose 239 H 163 Lactic Acid Level 8.9 *H White Blood Count 8.3 # Red Blood Count 3.83 L Hemoglobin 10.8 L Hematocrit 31.4 L Mean Corpuscular 82.0 Volume Mean Corpuscular 28.2 L Hemoglobin Mean Corpuscular 34.4 Hemoglobin Concen t Red Cell 16.3 H Distribution Width Platelet Count 14 *L Mean Platelet Volume Immature 1.100 H Granulocytes % Neutrophils % Segmented 33 L Neutrophils % (Manual) Band Neutrophils 40 H % (Manual) Lymphocytes % Lymphocytes % 3 L (Manual) Monocytes % Monocytes % 10 (Manual) Eosinophils % Eosinophils % 1 (Manual) Basophils % Metamyelocytes % 5 H (manual) Myelocytes % 3 H (Manual) Promyelocytes % 4 H (Manual) Nucleated Red 2 H Blood Cells % Immature 0.090 H Granulocytes # Neutrophils # Neutrophils # 3.0 (Manual) Band Neutrophils 3.3 H # Lymphocytes 0.2 L (Manual) Lymphocytes # Monocytes # Monocytes # 0.8 (Manual) Eosinophils # Basophils # Metamyelocytes # 0.4 H Myelocytes # 0.2 H Promyelocytes # 0.3 H Nucleated Red Blood Cells # Platelet Estimate DECREASED Giant Platelets 3 H Polychromasia 1+ Poikilocytosis 1+ Anisocytosis 1+ Ovalocytes 1+ Stomatocytes 1+ Sodium Level 145 H Potassium Level 2.7 *L Chloride Level 101 Carbon Dioxide 33 H Level Anion Gap 11 Blood Urea 67 H Nitrogen Creatinine 1.37 H Est Glomerular 41 L Filtrat Rate mL/min Glucose Level 184 Calcium Level 6.8 L Phosphorus Level 3.5 Magnesium Level 1.8 Test 07/14/18 07:00 Blood Gas Blood arterial Specimen Source Arterial Blood 07/14/2018 7:02:1 Date Drawn 5 AM Arterial Blood pH 7.510 H (Temp corrected) Arterial Blood 40.3 pCO2 (Temp correct) Arterial Blood 95.0 pO2 (Temp corrected) Arterial Blood 31.4 H HCO3 Arterial Blood 7.8 H Base Excess Arterial Blood 96.8 Oxygen Saturation Dionte Test N/A Arterial Blood A-Line Gas Puncture Site Arterial 0.3 Blood Carboxyhemo globin Arterial Blood 0.2 Methemoglobin Blood Gas A-a O2 71.6 H Differential Oxyhemoglobin 96.3 Percent Blood Gas 37.0 Temperature Blood Gas 14.0 Respiration Rate Blood Gas Actual 14 Respiration Rate Blood Gas VENT - AC Modality FiO2 30.0 Blood Gas Tidal 550.0 Volume Blood Gas Low 5.0 PEEP Setting Blood Gas TM Notified Whom Blood Gas 07/14/2018 7:11:0 Notified Time 2 AM Medications Medication Current Medications Morphine Sulfate/ Sodium Chloride 100 ml @ 1 mls/hr TITRATE IV ; Start 07/14/18 at 08:00 Lorazepam (Ativan) 1 mg Q2 PRN PO AGITATION; Start 07/14/18 at 08:00 Miscellaneous Information (* Miscellaneous Pharmacy Order) D/C ALL DRIPS/MEDS PT.... ONCE XX ; Start 07/14/18 at 08:00 Lorazepam (Ativan) 2 mg Q2H PRN IV AGITATION; Start 07/14/18 at 08:30 ALFONSO WALTERS Jul 14, 2018 11:25
--- NOTE | 2018-07-14 15:46 | CONS ---
Assessment/Plan Assessment/Plan Hospital Course (Demo Recall) No acute events overnight patient was transitioned to comfort care Microbiology: Blood culture growing Pseudomonas aeruginosa abdominal fluid culture growing E. coli, Enterobacter cloaca, VRE resistant to ampicillin Physical examination: This is a well-developed well-nourished middle-aged woman who is intubated sedated in no distress. Head atraumatic normocephalic. Neck is supple. Chest rise symmetrical breath sounds diminished bases. Heart: S1-S2 tachycardic regular abdomen distended no bowel tones auscultated extremities mottled and cyanotic Assessment: 1. Sepsis with shock 2. Multisystem organ failure 3. PSA bacteremia likely 2 to #4 4. Abdominal wall abscess with necrosis status post I&D abdominal exploration with lysis of adhesions 3. Acute renal failure 4. Acute respiratory failure 5. Gastric and ovarian cancer 6. Pancytopenia with neutropenia Plan: Of antibiotics, transition to comfort care, will sign off DW RN Consultation Date/Type/Reason Admit Date/Time Jun 10, 2018 at 18:42 Initial Consult Date 07/11/18 Type of Consult id Requesting Provider: ELMER CAVAZOS MD Date/Time of Note DATE: 07/14/18 TIME: 15:46 Exam/Review of Systems Exam Vitals Vital Signs Date Temp Pulse Resp B/P (MAP) Pulse Ox O2 O2 Flow FiO2 Time Delivery Rate 07/14/18 114 28 72/38 (49) 98 Nasal 2.0 14:00 Cannula 07/14/18 30 11:50 07/14/18 99.4 07:00 Intake and Output 07/13/18 07/13/18 07/14/18 1515:00 23:00 07:00 IntakeIntake Total 1848.57 ml 1898.82 ml 1460.63 ml OutputOutput Total 395 ml 335 ml 293 ml BalanceBalance 1453.57 ml 1563.82 ml 1167.63 ml Results Result Diagram: 07/14/1842907/14/18 043 Results 24hrs Laboratory Tests Test 07/13/18 17:11 07/13/18 19:22 07/13/18 23:39 07/14/18 04:10 Bedside Glucose 226 H 239 H Sodium Level 148 H Potassium Level 2.7 *L Chloride Level 103 Carbon Dioxide 31 Level Anion Gap 14 H Blood Urea 64 H Nitrogen Creatinine 1.38 H Est Glomerular 40 L Filtrat Rate mL/min Glucose Level 228 H Calcium Level 6.4 L Magnesium Level 1.9 Lactic Acid Level 8.9 *H Test 07/14/18 04:30 07/14/18 05:16 07/14/18 07:00 White Blood Count 8.3 # Red Blood Count 3.83 L Hemoglobin 10.8 L Hematocrit 31.4 L Mean Corpuscular 82.0 Volume Mean Corpuscular 28.2 L Hemoglobin Mean Corpuscular 34.4 Hemoglobin Concen t Red Cell 16.3 H Distribution Width Platelet Count 14 *L Mean Platelet Volume Immature 1.100 H Granulocytes % Neutrophils % Segmented 33 L Neutrophils % (Manual) Band Neutrophils 40 H % (Manual) Lymphocytes % Lymphocytes % 3 L (Manual) Monocytes % Monocytes % 10 (Manual) Eosinophils % Eosinophils % 1 (Manual) Basophils % Metamyelocytes % 5 H (manual) Myelocytes % 3 H (Manual) Promyelocytes % 4 H (Manual) Nucleated Red 2 H Blood Cells % Immature 0.090 H Granulocytes # Neutrophils # Neutrophils # 3.0 (Manual) Band Neutrophils 3.3 H # Lymphocytes 0.2 L (Manual) Lymphocytes # Monocytes # Monocytes # 0.8 (Manual) Eosinophils # Basophils # Metamyelocytes # 0.4 H Myelocytes # 0.2 H Promyelocytes # 0.3 H Nucleated Red Blood Cells # Platelet Estimate DECREASED Giant Platelets 3 H Polychromasia 1+ Poikilocytosis 1+ Anisocytosis 1+ Ovalocytes 1+ Stomatocytes 1+ Sodium Level 145 H Potassium Level 2.7 *L Chloride Level 101 Carbon Dioxide 33 H Level Anion Gap 11 Blood Urea 67 H Nitrogen Creatinine 1.37 H Est Glomerular 41 L Filtrat Rate mL/min Glucose Level 184 Calcium Level 6.8 L Phosphorus Level 3.5 Magnesium Level 1.8 Bedside Glucose 163 Blood Gas Blood arterial Specimen Source Arterial Blood 07/14/2018 7:02:1 Date Drawn 5 AM Arterial Blood pH 7.510 H (Temp corrected) Arterial Blood 40.3 pCO2 (Temp correct) Arterial Blood 95.0 pO2 (Temp corrected) Arterial Blood 31.4 H HCO3 Arterial Blood 7.8 H Base Excess Arterial Blood 96.8 Oxygen Saturation Dionte Test N/A Arterial Blood A-Line Gas Puncture Site Arterial 0.3 Blood Carboxyhemo globin Arterial Blood 0.2 Methemoglobin Blood Gas A-a O2 71.6 H Differential Oxyhemoglobin 96.3 Percent Blood Gas 37.0 Temperature Blood Gas 14.0 Respiration Rate Blood Gas Actual 14 Respiration Rate Blood Gas VENT - AC Modality FiO2 30.0 Blood Gas Tidal 550.0 Volume Blood Gas Low 5.0 PEEP Setting Blood Gas TM Notified Whom Blood Gas 07/14/2018 7:11:0 Notified Time 2 AM Medications Medication Current Medications Morphine Sulfate/ Sodium Chloride 100 ml @ 1 mls/hr TITRATE IV Last administered on 07/14/18at 14:17; Admin Dose 2 MLS/HR; Start 07/14/18 at 08:00 Lorazepam (Ativan) 1 mg Q2 PRN PO AGITATION; Start 07/14/18 at 08:00 Miscellaneous Information (* Miscellaneous Pharmacy Order) D/C ALL DRIPS/MEDS PT.... ONCE XX ; Start 07/14/18 at 08:00 Lorazepam (Ativan) 2 mg Q2H PRN IV AGITATION; Start 07/14/18 at 08:30 EMILIA FLORES NP Jul 14, 2018 15:46
[2018-07-15] MEDS ORDERED: HYDROmorphONE 1 MG/ML SYG IV PRN (08:00)
[2018-07-15] MEDS ORDERED: HALOPERIDOL 5 MG INJ IM PRN (08:00)
[2018-07-15] MEDS ORDERED: DIPHENHYDRAMINE 50 MG INJ IV PRN (08:00)
[2018-07-15] MEDS ORDERED: ARTIFICIAL TEARS 15 ML OPH BOTH EYES PRN (08:00)
[2018-07-15] MEDS ORDERED: ONDANSETRON 4 MG INJ IV PRN (08:00)
[2018-07-15] MEDS ORDERED: DIMETHICONE STICK TOP PRN (08:00)
[2018-07-15] MEDS ORDERED: LORAZEPAM 2 MG INJ IV PRN (08:00)
[2018-07-15] MEDS ORDERED: SCOPOLAMINE 1.5 MG PATCH TRANSDERM SCH (09:00)
--- NOTE | 2018-07-15 09:02 | PN ---
DATE: 07/15/2018 SUBJECTIVE: The patient has been placed on comfort measures and is on morphine drip. The patient is currently on med-surg. No other events noted. The patient's vitals have been reviewed. HEENT: Head is normocephalic. NECK: Supple. HEART: Regular rate. LUNGS: Show diminished breath sounds at base. ABDOMEN: Soft, nontender to palpation. No rebound or guarding. EXTREMITIES: Negative for clubbing, cyanosis, positive edema. DERMATOLOGIC: No rashes. MUSCULOSKELETAL: No joint effusions. NEUROLOGIC: No change in exam. MEDICATIONS: Reviewed. LABORATORY DATA: Has been reviewed. ASSESSMENT AND PLAN: 1. Acute kidney injury. 2. Hypokalemia. 3. Hyponatremia. 4. Mixed acid base disorder. 5. Pancytopenia. 6. Mineral bone disorder. 7. Respiratory failure. 8. Encephalopathy. 9. Tachyarrhythmia. 10. Gastric carcinoma. PLAN: The patient is on comfort measures. We will sign off. Dictated By: BRAYDEN RED DO NR/NTS Conf#: [id number] DID#: [id number] CC: ELMER CAVAZOS MD;*EndCC*
--- NOTE | 2018-07-15 10:20 | PN ---
Date/Time of Note Date/Time of Note DATE: 07/15/18 TIME: 10:14 Assessment/Plan Lines/Catheters IV Catheter Type (from Nrs): Saline Lock Ramsey in Place (from Nrs): Yes Assessment/Plan Chief Complaint/Hosp Course 1. CT with emphysematous gastritis, portal venous air, thickening of pylorus and duodenal bulb, thick-walled gallbladder, mesenteric inflammation in the upper abdomen with free fluid. Repeat CT noted with improvement of emphysematous gastritis; EGD w stent placement 06/21/18; 04/06/19 status post gastrojejunostomy, resection of right ovarian mass and partial omentectomy at [facility] by . UGI noted with patent stent but continues to have intermittent vomiting. s/p Lap feeding tube, however frozen abdomen and intestines plastered to abdominal wall and initial trocar directly entered into bowel and used as feeding tube site. Contrast study did not identify leak and therefore feeding tube was placed at the site. Patient with persistent tachycardia and hypotension taken to OR 07/10 and found significant infection, abscess, necrosis left abdominal wall s/p I&D&D. Intra-abdominally locally no acute issues besides adhesions. Patient placed on pressor and ventilatory support. Family has decided for comfort measures only. -comfort measures. we will sign off at this point. Thank you for allowing us to participate in the care of Ms. Steward 2. 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 Previous history of perforated duodenal ulcer and obstruction favors site of primary tumor in the upper GI tract. 3. Pancytopenia, with possible dic2nd sepsis, 4. Poor nutrition: TPN 5. Sepsis with shock, multi-organ failure, worsening lactic acidosis; currently on multiple pressor support 6. Renal insufficiency Thank you. Patient seen and examined in collaboration with Dr. Ag Calle. Subjective 24 Hr Interval Summary Continues on morphine drip. Currently on comfort measures. Exam/Review of Systems Vital Signs Vitals Vital Signs Date Temp Pulse Resp B/P (MAP) Pulse Ox O2 O2 Flow FiO2 Time Delivery Rate 07/15/18 Nasal 2.0 09:13 Cannula 07/14/18 97.4 127 16 68/37 (47) 94 19:00 07/14/18 30 11:50 Intake and Output 07/14/18 07/14/18 07/15/18 1515:00 23:00 07:00 IntakeIntake Total 54 ml 20 ml 32 ml OutputOutput Total 95 ml 75 ml BalanceBalance -41 ml -55 ml 32 ml Exam Free Text/Dictation onstitutional: ventilated, frail Psych: ventilated Head: normocephalic, atraumatic Eyes: nl conjunctiva, No icteric ENMT: nl external ears & nose, nl lips & teeth, mucosa pink and moist; ETT, ngt Neck: supple, non-tender; No jvd Respiratory: normal air movement; symmetrical chest rise No congested cough, No wheezing Cardiovascular: rrr, sr Gastrointestinal: soft, tender, feeding tube (drainage around tube), less rigid, LUQ wound clean-packed; ecchymosis left lower side; missy serosang Musculoskeletal: nl extremities to inspection; No joint tenderness Extremities: normal pulses; gen edema No calf tenderness, Neurological: ventilated Skin: nl turgor; left flank to upper medial thigh ecchymosis No rash or lesions, No diaphoresis Lymph: nl lymph nodes Results Result Diagram: 07/14/1842907/14/18429 IVELISSE CEJA NP Jul 15, 2018 10:20
--- NOTE | 2018-07-15 16:54 | HP ---
DATE OF ADMISSION: 06/10/2018 PRIMARY HOSPICE DIAGNOSIS: Metastatic gastric cancer. COMORBID: Chronic kidney disease, pancytopenia, recent respiratory failure requiring intubation. CHIEF COMPLAINT AND HISTORY OF PRESENT ILLNESS: History was obtained from medical record as the tamera ent could not provide any useful history. The patient is a 48-year-old female who was diagnosed with stage IV metastatic gastric cancer status post recent chemotherapy. The patient was admitted at [facility] because of respiratory failure and was intubated. The patient was seen by Dr. Porras from pulmonary standpoint. The patient's CT scan also revealed bilateral ovarian masses an d path from the EGD revealed signet ring features compatible with gastric as primary cancer. The pat ient was seen by palliative care consult and was referred to hospice. The patient was on multiple pr essors and was on mechanical ventilation and was started on comfort care recently. There was no repo rt of hematemesis, melena. No reported fever or chills. The patient was tachycardic and hypotensive . There was no p.o. intake. The patient was nonverbal. During this admission, the patient also und erwent I and D of abdominal wall abscess and excisional debridement of abdominal wall subcutaneous an d fascia necrotic tissue and repositioning and of small bowel feeding tube. REVIEW OF SYSTEMS: Limited. ALLERGIES: NONE. SOCIAL HISTORY: No smoking or alcohol. PAST MEDICAL HISTORY: As stated above. FAMILY HISTORY: Noncontributory. PHYSICAL EXAMINATION: GENERAL: Revealed the patient to be nonverbal. VITAL SIGNS: Temperature 97.4, pulse 127, respirations 16, blood pressure 68/37, O2 saturation 94% o n 2 liters. HEENT: No eye discharge or redness. Nose and ears are normal. NECK: No mass. CHEST: Diminished air entry at bases. CARDIOVASCULAR: Sinus tachycardia. ABDOMEN: Soft and distended. EXTREMITIES: Trace edema. NEUROLOGIC: The patient is nonverbal. LABORATORY DATA: Recently, WBC 8.3, hemoglobin 10.8, platelet 14. Sodium 145, potassium 2.7, BUN 67 , creatinine 1.3, glucose of 63. IMPRESSION: 1. Metastatic gastric cancer. 2. Status post respiratory failure. 3. Severe pancytopenia. 4. Acute kidney injury. PLAN: The patient was continued on IV morphine at 4 mg an hour which was started prior to hospice co nsultation. The patient was also started on scopolamine patch for secretion, Ativan 2 mg IV q.2 hour p.r.n. for agitation. Plan of care was discussed with [facility] nurse, Vicenta. The patient is terminall y ill and is appropriate for [facility] level of care. Dictated By: KAITLYNN HAYES MD AB/NTS Conf#: [id number] DID#: [id number] CC: DARVIN BOURNE MD; ELMER CAVAZOS MD;*EndCC*
--- NOTE | 2018-07-16 11:10 | DES ---
DATE OF ADMISSION: 06/10/2018 DATE OF : 07/15/2018 DATE OF ADMISSION 06/10/2018. DATE OF : at 1305. CAUSE OF : Metastatic gastric cancer, comorbid recent respiratory failure, pancytopenia, chroni c kidney disease versus acute on chronic kidney disease. REASON FOR ADMISSION: The patient was a 48-year-old female who was diagnosed with stage IV metastati c gastric cancer. The patient was admitted at [facility] for sepsis, respiratory f ailure, and at one time was intubated. The patient's CT scan revealed bilateral ovarian masses and p athology from recent EGD revealed signet ring features compatible with gastric as primary cancer. Th e patient also underwent I and D of abdominal wall abscess and excisional debridement of abdominal wa ll subcutaneous and necrotic fascia. The patient continued to decline and was referred to hospice. The patient prior to calling hospice had already been on comfort care. The patient was extubated and was seen by Dr. Osborn from palliative care standpoint. The patient was deemed a candidate for GI P level of care for respiratory distress. The patient's shortness of breath was managed with morphine drip which was optimized and prior to he r expiring, she was on 4 mg an hour. The patient at the time of admission was hypertensive and tachy cardic and continued to decline. Patient did not have any p.o. intake upon admission under hospice. Secretions were managed with the scopolamine patch and terminal agitation was managed with IV Ativa n. The patient, however, continued to decline and on 07/15/2018 [id number]. I spoke with the p bora's [id number] present [facility] Vicenta as well as [facility] nurse Elisa. Recent labs revealed WBC 8.3, hemoglobin 10.8, platelet of only 14,000. Sodium 140, potassium 2.7, BUN 67, creatinine 1.3. Recent lactic acid level was 8.9, albumin was only 2. Dictated By: KAITLYNN HAYES MD AB/NTS Conf#: [id number] DID#: [id number] CC: DARVIN BOURNE MD; ELMER CAVAZOS MD;*EndCC*
== END 2018-07-15 13:05 | disposition expired | DRG 356 ==
LOC: E/R 12:46 → 6WM 18:42 → MS1 06-18 16:15 → 6WM 07-08 18:57 → ICU 07-10 04:37 → 2NE 07-14 18:40
PROVIDERS: ADMIT Internal Medicine; ATTEND Internal Medicine
PROC: 0DD78ZX Extraction of Stomach, Pylorus, Via Natural or Artificial Opening Endoscopic, Diagnostic (ICD-10-PCS; 2018-06-13)
PROC: 0DB98ZX Excision of Duodenum, Via Natural or Artificial Opening Endoscopic, Diagnostic (ICD-10-PCS; 2018-06-21)
PROC: 0DB78ZX Excision of Stomach, Pylorus, Via Natural or Artificial Opening Endoscopic, Diagnostic (ICD-10-PCS; 2018-06-21)
PROC: 0D798DZ Dilation of Duodenum with Intraluminal Device, Via Natural or Artificial Opening Endoscopic (ICD-10-PCS; principal; 2018-06-21 16:30)
PROC: 0DHA3UZ Insertion of Feeding Device into Jejunum, Percutaneous Approach (ICD-10-PCS; 2018-07-08)
PROC: 0JB80ZZ Excision of Abdomen Subcutaneous Tissue and Fascia, Open Approach (ICD-10-PCS; 2018-07-10)
PROC: 0J980ZZ Drainage of Abdomen Subcutaneous Tissue and Fascia, Open Approach (ICD-10-PCS; 2018-07-10)
PROC: 30233K1 Transfusion of Nonautologous Frozen Plasma into Peripheral Vein, Percutaneous Approach (ICD-10-PCS; 2018-07-10)
PROC: 30233N1 Transfusion of Nonautologous Red Blood Cells into Peripheral Vein, Percutaneous Approach (ICD-10-PCS; 2018-07-10)
PROC: 5A1945Z Respiratory Ventilation, 24-96 Consecutive Hours (ICD-10-PCS; 2018-07-10)
PROC: 0BH17EZ Insertion of Endotracheal Airway into Trachea, Via Natural or Artificial Opening (ICD-10-PCS; 2018-07-10)
DX: C78.89 Secondary malignant neoplasm of other digestive organs (principal); E43 Unspecified severe protein-calorie malnutrition; A41.9 Sepsis, unspecified organism; R65.21 Severe sepsis with septic shock; K65.1 Peritoneal abscess; J96.01 Acute respiratory failure with hypoxia; D61.810 Antineoplastic chemotherapy induced pancytopenia; N17.0 Acute kidney failure with tubular necrosis; G92 Toxic encephalopathy; K31.1 Adult hypertrophic pyloric stenosis; E87.1 Hypo-osmolality and hyponatremia; T81.43XA Infection following a procedure, organ and space surgical site, initial encounter; C56.1 Malignant neoplasm of right ovary; C56.2 Malignant neoplasm of left ovary; E87.0 Hyperosmolality and hypernatremia; E87.4 Mixed disorder of acid-base balance; K56.7 Ileus, unspecified; E87.6 Hypokalemia; K25.9 Gastric ulcer, unspecified as acute or chronic, without hemorrhage or perforation; K29.60 Other gastritis without bleeding; K59.00 Constipation, unspecified; R11.2 Nausea with vomiting, unspecified; Z66 Do not resuscitate; Z51.5 Encounter for palliative care; Z68.20 Body mass index [BMI] 20.0-20.9, adult; Z90.3 Acquired absence of stomach [part of]
CPT/HCPCS: 36430; 36569; 36600; 71045; 74018; 74177; 74240; 74330; 76775; 76937; 80048; 80053; 80069; 80076; 80202; 81001; 81003; 82043; 82150; 82330; 82378; 82607; 82728; 82803; 82962; 83036; 83540; 83605; 83690; 83735; 83935; 84100; 84134; 84155; 84300; 84478; 84484; 84703; 85014; 85018; 85025; 85378; 85384; 85610; 85730; 86301; 86304; 86850; 86900; 86901; 86920; 87040; 87070; 87075; 87081; 87086; 87102; 88305; 88312; 88341; 88342; 93005; 93306; 94002; 94003; 94770; 96361; 96365; 96375; 97116; 97161; 97530; J9190; C2617; C9113; J0131; J0171; J0610; J0690; J0692; J0780; J1100; J1200; J1720; J1815; J1885; J2060; J2185; J2250; J2270; J2370; J2405; J2543; J2765; J2795; J3010; J3370; J3475; J3480; J7030; J7042; J7050; J7060; J7070; J7120; P9016; P9059; Q9967